=== PATIENT | male | born 1965 | race Caucasian/White ===

== ENCOUNTER 2016-10-27 09:26 | Emergency (ER) | payer MEDICARE, OTHER ==
[2016-10-27 09:43] VITALS: TEMP 97.4
[2016-10-27] MEDS ORDERED: ORPHENADRINE 30 MG/ML 2 ML VIAL IVP STA (09:51)
--- NOTE | 2016-10-27 10:30 | ED ---
Back Pain HPI - General Chief Complaint: Back Pain/Injury Stated Complaint: Back Pain Time Seen by Provider: 10/27/16 09:29 Source: patient, EMS, RN notes reviewed Mode of arrival: EMS Limitations: no limitations - History of Present Illness Initial Comments: 51-year-old male presents emergency Department chief complaint back spasms. Patient states it has been bothering for 1 week. He has a history of back problems. He has not taken any Tylenol Motrin for this. Patient states that he did take Ativan but states that helping patient denies abdominal pain, nausea , vomiting diarrhea constipation. Patient states she does have some dysuria but this is ongoing. Patient denies fever, chills. Patient states that he occasionally has pain that radiates into his hips. Patient states he has no lower extremity paresthesias. - Related Data Home Medications Medication Instructions Recorded Confirmed Aspirin EC [Ecotrin Low Dose] 81 mg PO DAILY@0800 09/19/16 10/27/16 Rless-Rhvz-Ad 1 tab PO DAILY@0800 09/19/16 10/27/16 Diltiazem Cd [Cardizem CD] 240 mg PO DAILY@0800 09/19/16 10/27/16 Diltiazem Cd [Cardizem Cd] 120 mg PO DAILY@0800 09/19/16 10/27/16 Divalproex ER [Depakote ER] 1,000 mg PO HS@2100 09/19/16 10/27/16 Docusate [Colace] 100 mg PO BID@0800,2100 09/19/16 10/27/16 Gemfibrozil [Lopid] 600 mg PO AC-BID 09/19/16 10/27/16 Insulin NPH/Reg Insulin 70/30 25 unit SQ DAILY@1700 09/19/16 10/27/16 [humuLIN 70/30 VIAL] Insulin NPH/Reg Insulin 70/30 30 unit SQ BID@0800,1200 09/19/16 10/27/16 [humuLIN 70/30 VIAL] Insulin Regular, Human [NovoLIN R] See Protocol SQ AC-TID 09/19/16 10/27/16 LORazepam [Ativan] 1 mg PO DAILY PRN 09/19/16 10/27/16 LORazepam [Ativan] 1 mg PO HS@2100 09/19/16 10/27/16 Lisinopril [Zestril] 20 mg PO DAILY@0800 09/19/16 10/27/16 [place]-3 Acid Ethyl Esters [Lovaza] 1 gm PO DAILY@0800 09/19/16 10/27/16 Pravastatin Sodium [Pravachol] 20 mg PO HS@2100 09/19/16 10/27/16 QUEtiapine [SEROquel] 200 mg PO HS@2100 09/19/16 10/27/16 Salmeterol Xinafoate [Serevent 1 puff INHALATION RT-BID@0800,1700 09/19/1610/27 Diskus] Trihexyphenidyl [Artane] 3 mg PO TID@0800,1200,2100 09/19/16 10/27/16 Gabapentin 600 mg PO QID PRN 10/27/16 10/27/16 Gluc/Mustapha-MSM#1/C/Kavon/Mu/Bor 3 tab PO DAILY PRN 10/27/16 10/27/16 [Glucosamine-Chondroitin Tablet] Loratadine [Claritin] 10 mg PO DAILY PRN 10/27/16 10/27/16 Meclizine [Antivert] 12.5 - 25 mg PO QID PRN 10/27/16 10/27/16 Prochlorperazine [Compazine] 10 mg PO Q6H PRN 10/27/16 10/27/16 Propylene Glycol/Peg 400/Pf 1 - 2 drop BOTH EYES DAILY PRN 10/27/16 10/27/16 [Systane 0.3-0.4% Eye Drops] Previous Rx's Medication Instructions Recorded Orphenadrine [Norflex] 100 mg PO Q12H #14 tablet.er 10/27/16 Allergies Allergy/AdvReac Type Severity Reaction Status Date / Time chlorpromazine Allergy Unknown Verified 10/27/16 10:03 [From Thorazine] fluphenazine [From Prolixin] Allergy Unknown Verified 10/27/16 10:03 haloperidol [From Haldol] Allergy Unknown Verified 10/27/16 10:03 insulin glargine Allergy Unknown Verified 10/27/16 10:03 [From Lantus] Review of Systems ROS Statement: Those systems with pertinent positive or pertinent negative responses have been documented in the HPI. ROS Other: All systems not noted in ROS Statement are negative. Past Medical History Past Medical History: Asthma, COPD, Hypertension History of Any Multi-Drug Resistant Organisms: None Reported Past Surgical History: Cholecystectomy Additional Past Surgical History / Comment(s): LEFT EYE Past Psychological History: Anxiety, Bipolar, Depression, Schizoaffective Disorder Smoking Status: Current every day smoker Past Alcohol Use History: None Reported Past Drug Use History: None Reported Additional Drug Use History / Comment(s): pt is a very poor historian - Past Family History Father Family Medical History: Unable to Obtain General Exam General appearance: alert, in no apparent distress Neck exam: Present: normal inspection. Absent: tenderness, meningismus, lymphadenopathy Respiratory exam: Present: normal lung sounds bilaterally. Absent: respiratory distress, wheezes, rales, rhonchi, stridor Cardiovascular Exam: Present: regular rate, normal rhythm, normal heart sounds. Absent: systolic murmur, diastolic murmur, rubs, gallop, clicks GI/Abdominal exam: Present: soft, normal bowel sounds. Absent: distended, tenderness, guarding, rebound, rigid Extremities exam: Present: normal inspection, full ROM, normal capillary refill. Absent: tenderness, pedal edema, joint swelling, calf tenderness Back exam: Present: full ROM. Absent: tenderness, CVA tenderness (R), CVA tenderness (L), muscle spasm, paraspinal tenderness, vertebral tenderness Neurological exam: Present: alert, oriented X3, CN II-XII intact, reflexes normal. Absent: motor sensory deficit Course Vital Signs 10/27/16 10/27/16 09:31 11:37 Temperature 97.4 F L Pulse Rate 79 70 Respiratory 16 20 Rate Blood Pressure 133/56 132/78 O2 Sat by Pulse 96 98 Oximetry Medical Decision Making - Medical Decision Making 51-year-old male present emergency department for back spasms. Patient unable to provide a urine it's time is requesting be discharged. Patient states she does feel better with complex. Patient will be discharged. Disposition Clinical Impression: Lumbar paraspinal muscle spasm, Back pain Disposition: HOME SELF-CARE Condition: Stable Instructions: Acute Low Back Pain (ED) Additional Instructions: Please return to the Emergency Department if symptoms worsen or any other concerns. Prescriptions: Orphenadrine [Norflex] 100 mg PO Q12H #14 tablet.er Time of Disposition: 11:53
[2016-10-27 11:38] VITALS: BP 132/78; PULSE 70; RESP 20
--- NOTE | 2016-10-27 11:45 | XR ---
Lumbosacral spine HISTORY: Back pain 5 views of the lumbosacral spine There is no spondylolysis or spondylolisthesis. Lumbar vertebral bodies show preserved height. Bone m ineralization is reduced. Loss of disc height present at L1-2, L2-3. Sclerosis present in the posteri or elements. IMPRESSION: Degenerative disc disease and osteopenia. Facet arthropathy.
== END 2016-10-27 11:59 | disposition home or self-care (01) ==
LOC: EC 09:26
DX: M62.830 Muscle spasm of back (principal); M54.9 Dorsalgia, unspecified; R30.0 Dysuria; J45.909 Unspecified asthma, uncomplicated; J44.9 Chronic obstructive pulmonary disease, unspecified; I10 Essential (primary) hypertension; F41.9 Anxiety disorder, unspecified; F31.9 Bipolar disorder, unspecified; F25.9 Schizoaffective disorder, unspecified; Z79.82 Long term (current) use of aspirin; Z79.899 Other long term (current) drug therapy; Z79.4 Long term (current) use of insulin; Z88.8 Allergy status to other drugs, medicaments and biological substances; F17.200 Nicotine dependence, unspecified, uncomplicated
CPT/HCPCS: 72110; 96374; 99284; J2360

== ENCOUNTER → 2016-11-04 | Outpatient (CLI) | payer MEDICARE, OTHER ==
--- NOTE | 2016-11-04 11:08 | XR ---
EXAMINATION TYPE: XR chest 2V DATE OF EXAM: 11/04/2016 10:53 AM COMPARISON: 09/20/2016 HISTORY: Pneumonia FINDINGS: The lungs are clear and there is no pneumothorax, pleural effusion, or focal pneumonia. Degenerativ e change of the spine noted. Minimal subsegmental changes at the right lung base laterally. IMPRESSION: 1. No acute process. Minimal linear changes at the right lung base most typical of atelectasis.
== END | disposition home or self-care (01) ==
LOC: RADXRMAIN 10:40
PROVIDERS: ATTEND Internal Medicine Sleep Medicine
DX: J18.9 Pneumonia, unspecified organism (principal)
CPT/HCPCS: 71020

== ENCOUNTER → 2017-02-06 | Outpatient (CLI) | payer MEDICARE, OTHER ==
[2017-02-06 09:44] LABS: Basophils % (A) 0 %; CH 35.5; CHCM 35.9; Eosinophils # (A) 0.2 k/uL (0-0.7); Eosinophils % (A) 1 %; HCT 48.3 % (39.0-53.0); HDW 2.58; HGB 17.2 gm/dL (13.0-17.5); Luc % (Auto) 2; Lymphocytes # (A) 3.3 k/uL (1.0-4.8); Lymphocytes % (A) 30 %; MCH 35.4 pg (25.0-35.0); MCHC 35.6 g/dL (31.0-37.0); MCV 99.2 fL (80.0-100.0); Monocytes # (A) 0.9 k/uL (0-1.0); Monocytes % (A) 8 %; Neutrophils # (A) 6.3 k/uL (1.3-7.7); Neutrophils % (A) 58 %; RBC 4.86 m/uL (4.30-5.90); RDW 12.4 % (11.5-15.5); WBC 10.8 k/uL (3.8-10.6); WBC (Perox) 10.37
[2017-02-06 09:45] LABS: Bilirubin, Delta 0.2 mg/dL (0.0-0.2); Total Bilirubin 0.4 mg/dL (0.2-1.3)
== END | disposition home or self-care (01) ==
LOC: LABWHC1 08:24
PROVIDERS: ATTEND Nurse Practitioner Family
DX: Z51.81 Encounter for therapeutic drug level monitoring (principal); Z79.899 Other long term (current) drug therapy
CPT/HCPCS: 36415; 80076; 80164; 85025

== ENCOUNTER → 2017-11-01 | Outpatient (CLI) | payer MEDICARE, OTHER ==
--- NOTE | 2017-11-01 14:35 | CT ---
EXAMINATION TYPE: CT lumbar spine wo con DATE OF EXAM: 11/01/2017 1:58 PM COMPARISON: CT abdomen and pelvis September 19, 2016 HISTORY: Lumbar pain per order. Back pain since 2005 with pain into bilateral buttocks and left thigh per patient. CT DLP: 979 mGycm Automated exposure control for dose reduction was used. Unenhanced CT of the lumbar spine was performed. Bone and soft tissue window settings are submitted as well as coronal and sagittal reconstructions. 5 lumbar-type vertebra are redemonstrated. Vertebral body heights and disc space heights are preserve d. Posterior disc herniation L5-S1 level is seen sagittal image 34. There is mild to moderate multile beverley anterior and lateral spurring most prominent in the upper lumbar spine. There is hemangioma L2 ve rtebral body level redemonstrated. Review of axial images shows a T12-L1, L1-L2, L2-L3, and L3-L4 levels to appear within normal limits. Axial images at L4-L5 level show mild facet degenerative changes bilaterally and mild broad disc bulg e with left foraminal disc protrusion component minimally effacing anterior thecal sac on axial image 52. There is mild left-sided anterior inferior neural foraminal narrowing. Right-sided neural forame n is patent. Axial images at L5-S1 level show mild facet degenerative changes bilaterally. There is central disc p rotrusion seen but spinal canal is preserved. Bilateral neural foramina are patent. No suspicious retroperitoneal findings are seen. Cholecystectomy clips are partially imaged. IMPRESSION: Some multilevel degenerative changes in the lumbar spine as detailed above.
== END | disposition home or self-care (01) ==
LOC: RADCTMAIN 13:36
PROVIDERS: ATTEND Family Medicine
DX: M47.817 Spondylosis without myelopathy or radiculopathy, lumbosacral region (principal)
CPT/HCPCS: 72131

== ENCOUNTER → 2017-11-15 | Outpatient (CLI) | payer MEDICARE, OTHER ==
[2017-11-15 09:46] LABS: Basophils % (A) 0 %; Eosinophils # (A) 0.1 k/uL (0-0.7); Eosinophils % (A) 2 %; HCT 52.8 % (39.0-53.0); HGB 17.8 gm/dL (13.0-17.5); Lymphocytes # (A) 2.9 k/uL (1.0-4.8); Lymphocytes % (A) 41 %; MCH 33.9 pg (25.0-35.0); MCHC 33.7 g/dL (31.0-37.0); MCV 100.5 fL (80.0-100.0); Mean Platelet Volume 7.5; Monocytes # (A) 0.8 k/uL (0-1.0); Monocytes % (A) 11 %; Neutrophils # (A) 3.1 k/uL (1.3-7.7); Neutrophils % (A) 44 %; Platelet Count 141 k/uL (150-450); RBC 5.26 m/uL (4.30-5.90); RDW 12.4 % (11.5-15.5); WBC 7.1 k/uL (3.8-10.6)
[2017-11-15 10:31] LABS: Bilirubin, Delta 0.3 mg/dL (0.0-0.2); Bilirubin,Unconjugated 0.1 mg/dL (0.0-1.1); Total Bilirubin 0.4 mg/dL (0.2-1.3); Total Protein 6.6 g/dL (6.3-8.2)
[2017-11-15 10:37] LABS: Valproic Acid (Depakene) 68.8 ug/mL
== END | disposition home or self-care (01) ==
LOC: LABWHC1 08:20
PROVIDERS: ATTEND Nurse Practitioner Family
DX: Z51.81 Encounter for therapeutic drug level monitoring (principal); Z79.899 Other long term (current) drug therapy
CPT/HCPCS: 36415; 80076; 80164; 85025

== ENCOUNTER → 2017-11-27 | Outpatient (CLI) | payer MEDICARE, OTHER ==
[2017-11-27 10:36] LABS: Blood Urea Nitrogen 17 mg/dL (9-20)
--- NOTE | 2017-11-27 11:30 | CT ---
EXAMINATION TYPE: CT thoracic spine w con DATE OF EXAM: 11/27/2017 COMPARISON: NONE HISTORY: mid back pain CT DLP: 1631 mGycm Automated exposure control for dose reduction was used. TECHNIQUE: Axial images were obtained through thoracic spine at 3 mm thick sections. Reconstructed im ages are performed in the coronal and sagittal planes. FINDINGS: There is slight exaggeration of thoracic kyphosis the upper thoracic spine. Some increased density is in the thoracic spine disc space. Spondylosis is present. No suspicious focal disc herniation or sig nificant disc bulge is evident. No spinal canal stenosis or neural foraminal stenosis is present. L2-L3: Facet compared to the mgpal-xm-gnhy. There appears to be some broad-based disc bulging with mi ld anterior thecal sac flattening. Spinal canal stenosis or neural foraminal stenosis identified. IMPRESSION: 1. NO ACUTE OSSEOUS ABNORMALITY THORACIC SPINE. 2. SUGGESTION OF MILD BROAD-BASED DISC BULGE L2-L3.
== END | disposition home or self-care (01) ==
LOC: RADCTMAIN 09:54
PROVIDERS: ATTEND Family Medicine
DX: M54.6 Pain in thoracic spine (principal)
CPT/HCPCS: 82565; 84520; 72129; 36415; Q9967

== ENCOUNTER → 2017-12-13 | Outpatient (CLI) | payer MEDICARE, OTHER | END | disposition home or self-care (01) | LOC: LABWHC1 08:15 | PROVIDERS: ATTEND Nurse Practitioner Family | DX: Z51.81 Encounter for therapeutic drug level monitoring (principal); Z79.899 Other long term (current) drug therapy | CPT/HCPCS: 36415; 80164 ==

== ENCOUNTER 2018-04-20 11:49 | Emergency (ER) | payer MEDICARE, OTHER ==
[2018-04-20 11:54] VITALS: RESP 18
[2018-04-20] MEDS ORDERED: IPRATROPIUM-ALBUTEROL 3 ML NEB INHALATION STA (12:24)
--- NOTE | 2018-04-20 12:31 | ED ---
General Adult HPI - General Chief complaint: Upper Respiratory Infection Stated complaint: Difficulty Breathing Time Seen by Provider: 04/20/18 11:55 Source: patient, RN notes reviewed Mode of arrival: ambulatory Limitations: no limitations - History of Present Illness Initial comments: This is a 53-year-old male who presents emergency Department complaining of shortness of breath and cough for about 30 hours. Patient states had intermittent cough over the last 6 weeks but he figured it is because he smokes daily. Patient states he does have a breathing treatment home. He almost never uses it. Patient denies any fever chills. Patient denies any chest pain. Patient states he has coughed up quite a bit of sputum since yesterday. Patient denies any palpitations. Patient denies any headache patient denies numbness weakness. Patient denies abdominal pain patient denies nausea vomiting diarrhea. - Related Data Home Medications Medication Instructions Recorded Confirmed Divalproex ER [Depakote ER] 2,000 mg PO HS 09/19/16 04/20/18 Docusate [Colace] 100 mg PO BID 09/19/16 04/20/18 Insulin Regular, Human [NovoLIN R] See Protocol SQ AC-TID 09/19/16 04/20/18 Insulin NPH Hum/Reg Insulin Hm 30 units SQ AC-TID 09/17/17 04/20/18 [NovoLIN 70-30 100 UNIT/ML VIAL] Metoprolol Tartrate [Lopressor] 50 mg PO BID 09/17/17 04/20/18 ARIPiprazole [Abilify] 7.5 mg PO DAILY 04/20/18 04/20/18 Acetaminophen [Tylenol Arthritis] 650 - 1,300 mg PO TID PRN 04/20/18 04/20/18 Amantadine HCl [Symmetrel] 100 mg PO TID 04/20/18 04/20/18 Aspirin 81 mg PO DAILY 04/20/18 04/20/18 Budesonide [Pulmicort] 0.5 mg INHALATION RT-BID PRN 04/20/18 04/20/18 Diltiazem Cd [Cardizem CD] 120 mg PO DAILY 04/20/18 04/20/18 Diltiazem Cd [Cardizem CD] 240 mg PO DAILY 04/20/18 04/20/18 Ezetimibe [Zetia] 10 mg PO HS 04/20/18 04/20/18 Fluticasone/Salmeterol [Advair 1 puff INHALATION RT-BID 04/20/18 04/20/18 250-50 Diskus] Glucosam/Mustapha-Msm1/C/Kavon/Bosw 3 tab PO DAILY PRN 04/20/18 04/20/18 [Glucosamine-Chondroitin Tablet] Imipramine HCl [Tofranil] 50 mg PO DAILY 04/20/18 04/20/18 Insulin Regular, Human [NovoLIN R] 10 unit SQ AC-TID 04/20/18 04/20/18 Ipratropium [place] 0.06%Nasal 2 spray EA NOSTRIL TID PRN 04/20/18 04/20/18 [Atrovent Nasal 0.06%] Ipratropium-Albuterol Nebulize 3 ml INHALATION RT-TID PRN 04/20/18 04/20/18 [Duoneb 0.5 mg-3 mg/3 ml Soln] LORazepam [Ativan] 0.5 mg PO DAILY PRN 04/20/18 04/20/18 LORazepam [Ativan] 1 mg PO HS 04/20/18 04/20/18 Lisinopril [Zestril] 20 mg PO DAILY 04/20/18 04/20/18 Loratadine [Claritin] 10 mg PO DAILY PRN 04/20/18 04/20/18 Meclizine [Antivert] 12.5 - 25 mg PO QID PRN 04/20/18 04/20/18 Nystatin [Nystop] 1 applic TOPICAL QID PRN 04/20/18 04/20/18 [place]-3 Fatty Acids [[place]-3] 1,000 mg PO DAILY 04/20/18 04/20/18 Pravastatin Sodium [Pravachol] 20 mg PO HS 04/20/18 04/20/18 Pregabalin [Lyrica] 75 mg PO DAILY 04/20/18 04/20/18 Prochlorperazine [Compazine] 10 mg PO Q6H PRN 04/20/18 04/20/18 QUEtiapine FUMARATE [Seroquel Xr] 800 mg PO HS 04/20/18 04/20/18 Total B With C [place] 1 tab PO DAILY 04/20/18 04/20/18 V-R Antacid [place](Almacone) 15 ml PO QID PRN 04/20/18 04/20/18 guaiFENesin-DM 100-10MG/5ML 10 ml PO TID PRN 04/20/18 04/20/18 [Robitussin DM] Previous Rx's Medication Instructions Recorded Albuterol Inhaler [Ventolin Hfa 1 - 2 puff INHALATION Q6HR PRN #2 04/20/18 Inhaler] puff Azithromycin [Zithromax Tri-Robbie] 500 mg PO DAILY #3 tab 04/20/18 Allergies Allergy/AdvReac Type Severity Reaction Status Date / Time chlorpromazine Allergy Unknown Verified 04/20/18 12:27 [From Thorazine] fluphenazine [From Prolixin] Allergy Unknown Verified 04/20/18 12:27 haloperidol [From Haldol] Allergy Unknown Verified 04/20/18 12:27 insulin glargine Allergy Unknown Verified 04/20/18 12:27 [From Lantus] ziprasidone [From Geodon] Allergy Unknown Verified 04/20/18 12:27 Review of Systems ROS Statement: Those systems with pertinent positive or pertinent negative responses have been documented in the HPI. ROS Other: All systems not noted in ROS Statement are negative. Past Medical History Past Medical History: Asthma, COPD, CVA/TIA, Diabetes Mellitus, Hypertension History of Any Multi-Drug Resistant Organisms: None Reported Past Surgical History: Cholecystectomy Additional Past Surgical History / Comment(s): LEFT EYE Past Anesthesia/Blood Transfusion Reactions: No Reported Reaction Past Psychological History: Anxiety, Bipolar, Depression, Schizoaffective Disorder Smoking Status: Current every day smoker Past Alcohol Use History: None Reported Past Drug Use History: None Reported - Past Family History Father Family Medical History: Unable to Obtain General Exam - General Exam Comments Initial Comments: GENERAL: Patient is well-developed and well-nourished. Patient is nontoxic and well- hydrated and is in mild distress. ENT: Neck is soft and supple. No significant lymphadenopathy is noted. Oropharynx is clear. Moist mucous membranes. Neck has full range of motion without eliciting any pain. EYES: The sclera were anicteric and conjunctiva were pink and moist. Extraocular movements were intact and pupils were equal round and reactive to light. Eyelids were unremarkable. PULMONARY: Patient has some expiratory wheezing bilaterally CARDIOVASCULAR: There is a regular rate and rhythm without any murmurs gallops or rubs. ABDOMEN: Soft and nontender with normal bowel sounds. No palpable organomegaly was noted. There is no palpable pulsatile mass. SKIN: Skin is clear with no lesions or rashes and otherwise unremarkable. NEUROLOGIC: Patient is alert and oriented x3. Cranial nerves II through XII are grossly intact. Motor and sensory are also intact. Normal speech, volume and content. Symmetrical smile. MUSCULOSKELETAL: Normal extremities with adequate strength and full range of motion. No lower extremity swelling or edema. No calf tenderness. LYMPHATICS: No significant lymphadenopathy is noted PSYCHIATRIC: Normal psychiatric evaluation. Limitations: no limitations Course Vital Signs 04/20/18 04/20/18 04/20/18 11:52 12:38 12:48 Temperature 98.0 F Pulse Rate 92 96 96 Respiratory 18 Rate Blood Pressure 121/77 O2 Sat by Pulse 98 Oximetry Medical Decision Making - Medical Decision Making EKG shows a normal sinus rhythm at 75 bpm WI interval 154 QRS is 82 QT interval 350 QTC is 390. Patient's EKG shows no ST segment elevation or depression or T wave abnormalities are noted. The patient's lungs after he received a breathing treatment his lung sounds were much clearer. Patient stated he felt much better. Patient states she will start using his breathing treatments at home. Disposition Clinical Impression: Bronchitis with bronchospasm Disposition: HOME SELF-CARE Condition: Good Instructions: Acute Bronchitis (ED) Prescriptions: Albuterol Inhaler [Ventolin Hfa Inhaler] 1 - 2 puff INHALATION Q6HR PRN #2 puff PRN Reason: Difficulty breathing Azithromycin [Zithromax Tri-Robbie] 500 mg PO DAILY #3 tab Is patient prescribed a controlled substance at d/c from ED?: No Referrals: Celio Friedman MD [Primary Care Provider] - 1-2 days Time of Disposition: 13:37
--- NOTE | 2018-04-20 13:17 | XR ---
EXAMINATION TYPE: XR chest 2V DATE OF EXAM: 04/20/2018 COMPARISON: 08/01/2017 HISTORY: Shortness of breath, chills, and cough for 6 weeks. Worsening symptoms within the last 2 day s. History of COPD TECHNIQUE: Frontal and lateral views of the chest are obtained. FINDINGS: There is no focal air space opacity, pleural effusion, or pneumothorax seen. The cardiac silhouette size is within normal limits. The osseous structures are intact. Moderate multilevel deg enerative changes of thoracic spine are seen. Cholecystectomy clips are noted within the right upper quadrant. Right hemidiaphragm slight elevation is unchanged from the prior. IMPRESSION: No acute cardiopulmonary process.
[2018-04-20 14:00] VITALS: BP 120/62; PULSE 90; TEMP 98.1
== END 2018-04-20 13:59 | disposition home or self-care (01) ==
LOC: EC 11:49
DX: J98.01 Acute bronchospasm (principal); J44.9 Chronic obstructive pulmonary disease, unspecified; E11.9 Type 2 diabetes mellitus without complications; I10 Essential (primary) hypertension; Z86.73 Personal history of transient ischemic attack (TIA), and cerebral infarction without residual deficits; F31.9 Bipolar disorder, unspecified; F41.9 Anxiety disorder, unspecified; F25.9 Schizoaffective disorder, unspecified; F17.200 Nicotine dependence, unspecified, uncomplicated; Z79.4 Long term (current) use of insulin; Z79.82 Long term (current) use of aspirin; Z79.51 Long term (current) use of inhaled steroids; Z79.899 Other long term (current) drug therapy; Z88.8 Allergy status to other drugs, medicaments and biological substances
CPT/HCPCS: 71046; 93005; 94640; 99284

== ENCOUNTER 2018-08-02 23:51 | Emergency (ER) | payer MEDICARE, OTHER ==
[2018-08-03 00:09] VITALS: BP 136/75; PULSE 80; RESP 18; TEMP 98.4
--- NOTE | 2018-08-03 01:09 | ED ---
ENT HPI - General Source: patient Mode of arrival: EMS Limitations: no limitations <Lubna Falk - Last Filed: 08/03/18 02:10> <Whitney Rios - Last Filed: 08/03/18 04:47> - General Chief complaint: ENT Stated complaint: dental pain Time Seen by Provider: 08/03/18 00:38 - History of Present Illness Initial comments: 53-year-old male patient presents to the emergency department today for complaints of left upper dental pain. Patient states that the tooth started bothering him this morning. States that whenever he bites down anything and causes extreme pain. Patient states this evening the pain has been worsening and radiating up into his face into his head. States he did take Tylenol earlier today but it didn't seem to help. He denies any fevers or chills. He denies any difficulty swallowing or trismus. States he is also had a sore throat for quite some time he is unsure what might be causing this. States that occasionally feels like something is in his throat when he tries to swallow. He denies any nausea or vomiting. Denies any drainage from the area around the tooth. Patient denies any recent rash, shortness breath, chest pain, abdominal pain, diarrhea, constipation, back pain, numbness, tingling, dizziness , weakness, hematuria, dysuria, urinary urgency, urinary frequency, headache, visual changes, or any other complaints. (Lubna Falk) - Related Data Home Medications Medication Instructions Recorded Confirmed Divalproex ER [Depakote ER] 2,000 mg PO HS 09/19/16 04/20/18 Docusate [Colace] 100 mg PO BID 09/19/16 04/20/18 Insulin Regular, Human [NovoLIN R] See Protocol SQ AC-TID 09/19/16 04/20/18 Insulin NPH Hum/Reg Insulin Hm 30 units SQ AC-TID 09/17/17 04/20/18 [NovoLIN 70-30 100 UNIT/ML VIAL] Metoprolol Tartrate [Lopressor] 50 mg PO BID 09/17/17 04/20/18 ARIPiprazole [Abilify] 7.5 mg PO DAILY 04/20/18 04/20/18 Acetaminophen [Tylenol Arthritis] 650 - 1,300 mg PO TID PRN 04/20/18 04/20/18 Amantadine HCl [Symmetrel] 100 mg PO TID 04/20/18 04/20/18 Aspirin 81 mg PO DAILY 04/20/18 04/20/18 Budesonide [Pulmicort] 0.5 mg INHALATION RT-BID PRN 04/20/18 04/20/18 Diltiazem Cd [Cardizem CD] 120 mg PO DAILY 04/20/18 04/20/18 Diltiazem Cd [Cardizem CD] 240 mg PO DAILY 04/20/18 04/20/18 Ezetimibe [Zetia] 10 mg PO HS 04/20/18 04/20/18 Fluticasone/Salmeterol [Advair 1 puff INHALATION RT-BID 04/20/18 04/20/18 250-50 Diskus] Glucosam/Mustapha-Msm1/C/Kavon/Bosw 3 tab PO DAILY PRN 04/20/18 04/20/18 [Glucosamine-Chondroitin Tablet] Imipramine HCl [Tofranil] 50 mg PO DAILY 04/20/18 04/20/18 Insulin Regular, Human [NovoLIN R] 10 unit SQ AC-TID 04/20/18 04/20/18 Ipratropium [place] 0.06%Nasal 2 spray EA NOSTRIL TID PRN 04/20/18 04/20/18 [Atrovent Nasal 0.06%] Ipratropium-Albuterol Nebulize 3 ml INHALATION RT-TID PRN 04/20/18 04/20/18 [Duoneb 0.5 mg-3 mg/3 ml Soln] LORazepam [Ativan] 0.5 mg PO DAILY PRN 04/20/18 04/20/18 LORazepam [Ativan] 1 mg PO HS 04/20/18 04/20/18 Lisinopril [Zestril] 20 mg PO DAILY 04/20/18 04/20/18 Loratadine [Claritin] 10 mg PO DAILY PRN 04/20/18 04/20/18 Meclizine [Antivert] 12.5 - 25 mg PO QID PRN 04/20/18 04/20/18 Nystatin [Nystop] 1 applic TOPICAL QID PRN 04/20/18 04/20/18 [place]-3 Fatty Acids [[place]-3] 1,000 mg PO DAILY 04/20/18 04/20/18 Pravastatin Sodium [Pravachol] 20 mg PO HS 04/20/18 04/20/18 Pregabalin [Lyrica] 75 mg PO DAILY 04/20/18 04/20/18 Prochlorperazine [Compazine] 10 mg PO Q6H PRN 04/20/18 04/20/18 QUEtiapine FUMARATE [Seroquel Xr] 800 mg PO HS 04/20/18 04/20/18 Total B With C Caplet 1 tab PO DAILY 04/20/18 04/20/18 V-R Antacid [place](Almacone) 15 ml PO QID PRN 04/20/18 04/20/18 guaiFENesin-DM 100-10MG/5ML 10 ml PO TID PRN 04/20/18 04/20/18 [Robitussin DM] Previous Rx's Medication Instructions Recorded Albuterol Inhaler [Ventolin Hfa 1 - 2 puff INHALATION Q6HR PRN #2 04/20/18 Inhaler] puff Azithromycin [Zithromax Tri-Robbie] 500 mg PO DAILY #3 tab 04/20/18 Ibuprofen [Motrin] 600 mg PO Q8HR PRN #30 tab 08/03/18 Penicillin V Potassium [Pen Vee K] 500 mg PO Q6H #40 tablet 08/03/18 Ranitidine HCl [Zantac] 150 mg PO HS #30 tab 08/03/18 Allergies Allergy/AdvReac Type Severity Reaction Status Date / Time chlorpromazine Allergy Unknown Verified 08/03/18 00:09 [From Thorazine] fluphenazine [From Prolixin] Allergy Unknown Verified 08/03/18 00:09 haloperidol [From Haldol] Allergy Unknown Verified 08/03/18 00:09 insulin glargine Allergy Unknown Verified 08/03/18 00:09 [From Lantus] ziprasidone [From Geodon] Allergy Unknown Verified 08/03/18 00:09 Review of Systems ROS Other: All systems not noted in ROS Statement are negative. <Lubna Falk - Last Filed: 08/03/18 02:10> ROS Other: All systems not noted in ROS Statement are negative. <Whitney Rios - Last Filed: 08/03/18 04:47> ROS Statement: Those systems with pertinent positive or pertinent negative responses have been documented in the HPI. Past Medical History Past Medical History: Asthma, COPD, CVA/TIA, Diabetes Mellitus, Hypertension History of Any Multi-Drug Resistant Organisms: None Reported Past Surgical History: Cholecystectomy Additional Past Surgical History / Comment(s): LEFT EYE Past Anesthesia/Blood Transfusion Reactions: No Reported Reaction Past Psychological History: Anxiety, Bipolar, Depression, Schizoaffective Disorder Smoking Status: Current every day smoker Past Alcohol Use History: None Reported Past Drug Use History: None Reported - Past Family History Father Family Medical History: Unable to Obtain <Lubna Falk M - Last Filed: 08/03/18 02:10> General Exam Limitations: no limitations General appearance: alert, in no apparent distress, other (This is a well- developed, well-nourished adult male patient in no acute distress. Vital signs upon presentation are temperature 98.4F, pulse 80, respirations 18, blood pressure 136/75, pulse ox 97% on room air.) Eye exam: Present: normal appearance, PERRL, EOMI. Absent: scleral icterus, conjunctival injection, periorbital swelling ENT exam: Present: normal oropharynx, mucous membranes moist, other (Patient has poor dentition with dental caries. Patient has gingival erythema and hyperplasia surrounding tooth number 13. No evidence of drainable abscess. Opens and closes mouth without difficulty.). Absent: normal exam Neck exam: Present: normal inspection. Absent: tenderness, meningismus, lymphadenopathy Respiratory exam: Present: normal lung sounds bilaterally. Absent: respiratory distress, wheezes, rales, rhonchi, stridor Cardiovascular Exam: Present: regular rate, normal rhythm, normal heart sounds. Absent: systolic murmur, diastolic murmur, rubs, gallop, clicks GI/Abdominal exam: Present: soft, normal bowel sounds. Absent: distended, tenderness, guarding, rebound, rigid Neurological exam: Present: alert, oriented X3, CN II-XII intact Psychiatric exam: Present: normal affect, normal mood Skin exam: Present: warm, dry, intact, normal color. Absent: rash <Lubna Falk M - Last Filed: 08/03/18 02:10> Vital Signs 08/03/18 00:07 Temperature 98.4 F Pulse Rate 80 Respiratory 18 Rate Blood Pressure 136/75 O2 Sat by Pulse 97 Oximetry Medical Decision Making <Lubna Falk - Last Filed: 08/03/18 02:10> <Whitney Rios - Last Filed: 08/03/18 04:47> - Medical Decision Making 53-year-old male patient presents to emergency department today for complaints of left upper dental pain. Physical examination did reveal dental caries to tooth #13. There is surrounding gingival erythema and hyperplasia. No evidence of drainable abscess. Patient also complaining of sore throat, oropharynx appears normal no tonsillar exudate or hypertrophy or erythema. Patient does report that he does have acid reflux. We did discuss that his sore throat could be related to a suicide on Zantac. If this does not improve his symptoms he is instructed to follow-up with ears, nose, and throat specialist for further evaluation. As for the tooth he is instructed to follow- up with dentistry. We'll start on Pen-Vee K and given pain medication. Return parameters were discussed in detail. He verbalizes understanding and agrees with this plan. (Lubna Falk) I was available for consultation in the emergency department. The history and physical exam were done by the midlevel provider. I was consulted for this patient's care. I reviewed the case with the midlevel provider and based on their presentation of the patient, I agree with the assessment, medical decision making and plan of care as documented. (Whitney Rios) Disposition Is patient prescribed a controlled substance at d/c from ED?: No Time of Disposition: 01:09 <Lubna Falk - Last Filed: 08/03/18 02:10> <Whitney Rios - Last Filed: 08/03/18 04:47> Clinical Impression: Pain, dental, Sore throat Disposition: HOME SELF-CARE Condition: Good Instructions: Toothache (ED) Additional Instructions: Complete antibiotic prescription in full. Take other medications as directed. Follow up with dentistry as soon as possible. Follow up with ENT specialist if sore throat does not improve. Return immediately for any new, worsening, or concerning symptoms. Prescriptions: Ibuprofen [Motrin] 600 mg PO Q8HR PRN #30 tab PRN Reason: Pain Penicillin V Potassium [Pen Vee K] 500 mg PO Q6H #40 tablet Ranitidine HCl [Zantac] 150 mg PO HS #30 tab Referrals: Celio Friedman MD [Primary Care Provider] - 1-2 days
[2018-08-03] MEDS: ACET/COD 300 MG/30 MG STARTER PACK 6 TAB BTL PO STA (01:16)
[2018-08-03] MEDS: PENICILLIN VK 500MG STARTER 4 TAB BTL PO STA (01:17)
[2018-08-03] MEDS: KETOROLAC 30 MG/ML 1 ML VIAL IM STA (01:17)
== END 2018-08-03 01:50 | disposition home or self-care (01) ==
LOC: EC 23:51
DX: J02.9 Acute pharyngitis, unspecified (principal); K08.89 Other specified disorders of teeth and supporting structures; J44.9 Chronic obstructive pulmonary disease, unspecified; E11.9 Type 2 diabetes mellitus without complications; I10 Essential (primary) hypertension; F31.9 Bipolar disorder, unspecified; F41.9 Anxiety disorder, unspecified; F25.9 Schizoaffective disorder, unspecified; F17.200 Nicotine dependence, unspecified, uncomplicated; Z86.73 Personal history of transient ischemic attack (TIA), and cerebral infarction without residual deficits; Z79.4 Long term (current) use of insulin; Z79.51 Long term (current) use of inhaled steroids; Z79.82 Long term (current) use of aspirin; Z79.899 Other long term (current) drug therapy; Z88.8 Allergy status to other drugs, medicaments and biological substances
CPT/HCPCS: 96372; 99283

== ENCOUNTER → 2018-10-15 | Outpatient (CLI) | payer MEDICARE, OTHER ==
[2018-10-15 17:39] LABS: T4, Free (Free Thyroxine) 1.1 ng/dL (0.80-1.80)
== END | disposition home or self-care (01) ==
LOC: LABWHC1 08:37
PROVIDERS: ATTEND Psychiatry & Neurology Neurology
DX: R25.1 Tremor, unspecified (principal)
CPT/HCPCS: 36415; 84439; 84443

== ENCOUNTER 2019-01-20 22:30 | Emergency (ER) | payer MEDICARE, OTHER ==
[2019-01-20 22:36] VITALS: RESP 18; TEMP 98.2
[2019-01-20] MEDS ORDERED: SODIUM CHLORIDE 0.9% 1,000 ML IV STA (22:40)
--- NOTE | 2019-01-20 23:13 | XR ---
EXAM: XR Chest, 2 Views CLINICAL HISTORY: Chest pain TECHNIQUE: Frontal and lateral views of the chest. COMPARISON: Chest x-ray dated 04/20/2018 FINDINGS: Lungs: Mild prominence of interstitium which may be secondary to low lung volumes. An inflammatory or infectious process versus pulmonary vascular congestion is not excluded. Pleural space: Unremarkable. No pneumothorax. Heart: Unremarkable. No cardiomegaly. Mediastinum: Unremarkable. Bones/joints: Unremarkable. IMPRESSION: Mild prominence of interstitium which may be secondary to low lung volumes. An inflammatory or infectious process versus pulmonary vascular congestion is not excluded.
[2019-01-20 23:24] LABS: Basophils % (A) 0 %; Eosinophils # (A) 0.1 k/uL (0-0.7); Eosinophils % (A) 1 %; HCT 51.7 % (39.0-53.0); HGB 17.7 gm/dL (13.0-17.5); Lymphocytes # (A) 2.8 k/uL (1.0-4.8); Lymphocytes % (A) 33 %; MCHC 34.3 g/dL (31.0-37.0); Mean Platelet Volume 7.6; Monocytes # (A) 0.8 k/uL (0-1.0); Monocytes % (A) 9 %; Neutrophils # (A) 4.8 k/uL (1.3-7.7); Neutrophils % (A) 55 %; Platelet Count 121 k/uL (150-450); RBC 5.23 m/uL (4.30-5.90); RDW 13.6 % (11.5-15.5); WBC 8.7 k/uL (3.8-10.6)
[2019-01-20 23:28] LABS: Prothrombin Time 10.4 sec (9.0-12.0)
[2019-01-20 23:54] LABS: Albumin 4.4 g/dL (3.5-5.0); Anion Gap 12 mmol/L; Blood Urea Nitrogen 19 mg/dL (9-20); Calcium 9.5 mg/dL (8.4-10.2); Carbon Dioxide 22 mmol/L (22-30); Chloride 102 mmol/L (98-107); Glucose 223 mg/dL (74-99); Lipase 57 U/L (23-300); Sodium 136 mmol/L (137-145); Total Bilirubin 0.5 mg/dL (0.2-1.3); Total Protein 6.8 g/dL (6.3-8.2)
[2019-01-21] LABS: ALT 35 U/L (21-72); AST 31 U/L (17-59); Alkaline Phosphatase 58 U/L (38-126); Magnesium 1.9 mg/dL (1.6-2.3); Potassium 4.5 mmol/L (3.5-5.1)
--- NOTE | 2019-01-21 01:18 | ED ---
General Adult HPI - General Chief complaint: Neuro Symptoms/Deficit Stated complaint: tremors Time Seen by Provider: 01/20/19 22:38 Source: patient, EMS Mode of arrival: EMS Limitations: no limitations - History of Present Illness Initial comments: Lucas is a pleasant 53-year-old gentleman who presents the emergency department today via EMS for evaluation of tremors. Patient reports he has had tremors for approximately 2 years he is followed with his primary care physician as well as his provider at [facility] for this. Patient reports he knows that one of his medications as for tremors but he can't remember which one. He reports that he saw his provider at [facility] last week and asked that one of her medication treats his tremors be increased however he was told that they can increase the dose. Patient reports he continues to feel shaky all the time. Patient reports that tonight he was feeling shaky so he came to the ER. Patient also concerned of the shaking may be worse due to a new medication. Patient reports he recently started doing an injection treatment for his diabetes 2-3 weeks ago and thinks this may be making him feel more shaky. Patient denies any acute complaints. He reports that his symptoms have been persistent for 2 years and have been progressively worsening over the past month. He reports feeling shaking in his whole body and feeling like he shaking from the inside. Patient reports he's otherwise been tending to his normal activities of daily living he's been eating and drinking well. He reports that he has been compliant with his home medications. He lives in a [place] [facility] and has a guardian who assist him in making his decisions. - Related Data Home Medications Medication Instructions Recorded Confirmed Divalproex ER [Depakote ER] 1,500 mg PO HS 09/19/16 01/20/19 Docusate [Colace] 100 mg PO BID 09/19/16 01/20/19 Insulin NPH Hum/Reg Insulin Hm 40 units SQ AC-TID 09/17/17 01/20/19 [NovoLIN 70-30 100 UNIT/ML VIAL] Metoprolol Tartrate [Lopressor] 50 mg PO BID 09/17/17 01/20/19 Amantadine HCl [Symmetrel] 100 mg PO TID 04/20/18 01/20/19 Diltiazem Cd [Cardizem CD] 120 mg PO DAILY 04/20/18 01/20/19 Diltiazem Cd [Cardizem CD] 240 mg PO DAILY 04/20/18 01/20/19 Ezetimibe [Zetia] 10 mg PO HS 04/20/18 01/20/19 Fluticasone/Salmeterol [Advair 1 puff INHALATION RT-BID 04/20/18 01/20/19 250-50 Diskus] Imipramine HCl [Tofranil] 50 mg PO HS 04/20/18 01/20/19 Insulin Regular, Human [NovoLIN R] 10 unit SQ AC-TID 04/20/18 01/20/19 LORazepam [Ativan] 0.5 mg PO DAILY PRN 04/20/18 01/20/19 LORazepam [Ativan] 1 mg PO HS 04/20/18 01/20/19 Lisinopril [Zestril] 20 mg PO DAILY 04/20/18 01/20/19 [place]-3 Fatty Acids [[place]y Rose-3] 1,000 mg PO DAILY 04/20/18 01/20/19 Pravastatin Sodium [Pravachol] 20 mg PO HS 04/20/18 01/20/19 Pregabalin [Lyrica] 75 mg PO DAILY 04/20/18 01/20/19 QUEtiapine FUMARATE [Seroquel Xr] 800 mg PO HS 04/20/18 01/20/19 Total B With C Caplet 1 tab PO DAILY 04/20/18 01/20/19 ARIPiprazole [Abilify] 5 mg PO DAILY 01/20/19 01/20/19 Aspirin EC [Ecotrin Low Dose] 81 mg PO DAILY 01/20/19 01/20/19 Dulaglutide [Trulicity] 0.75 mg SQ TH 01/20/19 01/20/19 Previous Rx's Medication Instructions Recorded Ranitidine HCl [Zantac] 150 mg PO HS #30 tab 08/03/18 Allergies Allergy/AdvReac Type Severity Reaction Status Date / Time amlodipine Allergy Unknown Verified 01/20/19 22:46 atorvastatin [From Lipitor] Allergy Unknown Verified 01/20/19 22:46 benztropine [From Cogentin] Allergy Unknown Verified 01/20/19 22:46 chlorpromazine Allergy Unknown Verified 08/03/18 00:09 [From Thorazine] fluphenazine [From Prolixin] Allergy Unknown Verified 08/03/18 00:09 gabapentin Allergy Unknown Verified 01/20/19 22:46 haloperidol [From Haldol] Allergy Unknown Verified 08/03/18 00:09 insulin glargine Allergy Unknown Verified 08/03/18 00:09 [From Lantus] metformin Allergy Unknown Verified 01/20/19 22:46 olanzapine [From Zyprexa] Allergy Unknown Verified 01/20/19 22:46 thiothixene Allergy Unknown Verified 01/20/19 22:46 ziprasidone [From Geodon] Allergy Unknown Verified 08/03/18 00:09 ABILIFY INJECTION Allergy Unknown Uncoded 01/20/19 22:46 INVEGA INJECTION Allergy Unknown Uncoded 01/20/19 22:46 Review of Systems ROS Statement: Those systems with pertinent positive or pertinent negative responses have been documented in the HPI. ROS Other: All systems not noted in ROS Statement are negative. Past Medical History Past Medical History: Asthma, COPD, CVA/TIA, Diabetes Mellitus, Hypertension Additional Past Medical History / Comment(s): Tremors History of Any Multi-Drug Resistant Organisms: None Reported Past Surgical History: Cholecystectomy Additional Past Surgical History / Comment(s): LEFT EYE Past Anesthesia/Blood Transfusion Reactions: No Reported Reaction Past Psychological History: Anxiety, Bipolar, Depression, Schizoaffective Disorder Smoking Status: Current every day smoker Past Alcohol Use History: None Reported Past Drug Use History: None Reported - Past Family History Father Family Medical History: Unable to Obtain General Exam - General Exam Comments Initial Comments: Physical Exam GENERAL: Patient is well-developed and well-nourished. Patient is nontoxic and well- hydrated and is in no distress. HENT: Normocephalic, Atraumatic. EYES: PERRL, EOMI PULMONARY: Unlabored respirations. No audible rales rhonchi or wheezing was noted. CARDIOVASCULAR: There is a regular rate and rhythm without any murmurs gallops or rubs. ABDOMEN: Soft and nontender with normal bowel sounds. SKIN: Skin is clear with no lesions or rashes and otherwise unremarkable. : Deferred NEUROLOGIC: Patient is alert and oriented x3. Moving all extremities spontaneously Noted had some shaking of the upper extremities however seems to be distractible No seizure activity MUSCULOSKELETAL: Normal extremities with adequate strength and full range of motion. No lower extremity swelling or edema. No calf tenderness. PSYCHIATRIC: Childlike demeanor Limitations: no limitations Limitations: no limitations Course Vital Signs 01/20/19 01/21/19 22:33 01:45 Temperature 98.2 F Pulse Rate 97 82 Respiratory 18 18 Rate Blood Pressure 160/98 172/80 O2 Sat by Pulse 98 98 Oximetry EKG Findings - EKG Comments: EKG Findings:: EKG was obtained at 2238, rate is 100 rhythm is sinus there is normal axis there are normal intervals, W[place] 154, QRS 86, QTC is [address] elevations or depressions there is no signs of acute ischemia, infarction or arrhythmia. Medical Decision Making - Medical Decision Making The patient was seen and evaluated, history was obtained from patient and EMS and review of medical record This is a pleasant 53-year-old gentleman who reports feeling shaky for 2 years believes that he has medication that fixes his shakiness not certain what medication it is wanted the dose changed but is [facility] provider did not change the dose when he saw her earlier this week. Patient has no acute complaints for basic labs will be ordered EKG nonischemic Chest x-ray unremarkable Patient's labs did reveal hyperglycemia and evidence of dehydration he did receive a 1 L IV fluid bolus. I reevaluated the patient he is resting comfortably. His lab results were discussed with him I advised him at this time I don't feel there is any indication to admit him to the hospital patient is agreeable, I advised the patient contact Dr. Friedman [facility] to discuss his medications and his concerns. All questions pertaining care were answered to the best my ability return parameters were discussed the patient was discharged home in stable condition. - Lab Data Result diagrams: 01/20/19 22:57 01/20/19 22:57 Lab Results 01/20/19 01/20/19 01/20/19 Range/Units 22:57 22:57 22:57 WBC 8.7 (3.8-10.6) k/uL RBC 5.23 (4.30-5.90) m/uL Hgb 17.7 H (13.0-17.5) gm/dL Hct 51.7 (39.0-53.0) % MCV 99.0 (80.0-100.0) fL MCH 34.0 (25.0-35.0) pg MCHC 34.3 (31.0-37.0) g/dL RDW 13.6 (11.5-15.5) % Plt Count 121 L (150-450) k/uL Neutrophils % 55 % Lymphocytes % 33 % Monocytes % 9 % Eosinophils % 1 % Basophils % 0 % Neutrophils # 4.8 (1.3-7.7) k/uL Lymphocytes # 2.8 (1.0-4.8) k/uL Monocytes # 0.8 (0-1.0) k/uL Eosinophils # 0.1 (0-0.7) k/uL Basophils # 0.0 (0-0.2) k/uL PT 10.4 (9.0-12.0) sec INR 1.0 (<1.2) APTT 25.0 (22.0-30.0) sec Sodium 136 L (137-145) mmol/L Potassium 4.5 (3.5-5.1) mmol/L Chloride 102 (98-107) mmol/L Carbon Dioxide 22 (22-30) mmol/L Anion Gap 12 mmol/L BUN 19 (9-20) mg/dL Creatinine 0.86 (0.66-1.25) mg/dL Est GFR (CKD-EPI)AfAm >90 (>60 ml/min/1.73 sqM) Est GFR (CKD-EPI)NonAf >90 (>60 ml/min/1.73 sqM) Glucose 223 H (74-99) mg/dL Calcium 9.5 (8.4-10.2) mg/dL Magnesium 1.9 (1.6-2.3) mg/dL Total Bilirubin 0.5 (0.2-1.3) mg/dL AST 31 (17-59) U/L ALT 35 (21-72) U/L Alkaline Phosphatase 58 (38-126) U/L Troponin I (0.000-0.034) ng/mL Total Protein 6.8 (6.3-8.2) g/dL Albumin 4.4 (3.5-5.0) g/dL Lipase 57 (23-300) U/L 01/20/19 Range/Units 22:57 WBC (3.8-10.6) k/uL RBC (4.30-5.90) m/uL Hgb (13.0-17.5) gm/dL Hct (39.0-53.0) % MCV (80.0-100.0) fL MCH (25.0-35.0) pg MCHC (31.0-37.0) g/dL RDW (11.5-15.5) % Plt Count (150-450) k/uL Neutrophils % % Lymphocytes % % Monocytes % % Eosinophils % % Basophils % % Neutrophils # (1.3-7.7) k/uL Lymphocytes # (1.0-4.8) k/uL Monocytes # (0-1.0) k/uL Eosinophils # (0-0.7) k/uL Basophils # (0-0.2) k/uL PT (9.0-12.0) sec INR (<1.2) APTT (22.0-30.0) sec Sodium (137-145) mmol/L Potassium (3.5-5.1) mmol/L Chloride (98-107) mmol/L Carbon Dioxide (22-30) mmol/L Anion Gap mmol/L BUN (9-20) mg/dL Creatinine (0.66-1.25) mg/dL Est GFR (CKD-EPI)AfAm (>60 ml/min/1.73 sqM) Est GFR (CKD-EPI)NonAf (>60 ml/min/1.73 sqM) Glucose (74-99) mg/dL Calcium (8.4-10.2) mg/dL Magnesium (1.6-2.3) mg/dL Total Bilirubin (0.2-1.3) mg/dL AST (17-59) U/L ALT (21-72) U/L Alkaline Phosphatase (38-126) U/L Troponin I <0.012 (0.000-0.034) ng/mL Total Protein (6.3-8.2) g/dL Albumin (3.5-5.0) g/dL Lipase (23-300) U/L Disposition Clinical Impression: Tremor, Hyperglycemia Disposition: HOME SELF-CARE Condition: Stable Instructions (If sedation given, give patient instructions): Tremors (ED) Is patient prescribed a controlled substance at d/c from ED?: No Referrals: Celio Friedman MD [Primary Care Provider] - 1-2 days
[2019-01-21 01:46] VITALS: BP 172/80; PULSE 82
== END 2019-01-21 01:46 | disposition home or self-care (01) ==
LOC: EC 22:30
DX: E11.65 Type 2 diabetes mellitus with hyperglycemia (principal); R25.1 Tremor, unspecified; E86.0 Dehydration; J44.9 Chronic obstructive pulmonary disease, unspecified; I10 Essential (primary) hypertension; F41.9 Anxiety disorder, unspecified; F31.9 Bipolar disorder, unspecified; F25.9 Schizoaffective disorder, unspecified; F17.200 Nicotine dependence, unspecified, uncomplicated; Z79.4 Long term (current) use of insulin; Z79.51 Long term (current) use of inhaled steroids; Z79.82 Long term (current) use of aspirin; Z79.899 Other long term (current) drug therapy; Z88.8 Allergy status to other drugs, medicaments and biological substances; Z86.73 Personal history of transient ischemic attack (TIA), and cerebral infarction without residual deficits
CPT/HCPCS: 36415; 71046; 80053; 83690; 83735; 84484; 85025; 85610; 85730; 93005; 96360; 99284

== ENCOUNTER → 2019-11-28 | Outpatient (CLI) | payer MEDICARE, OTHER ==
[2019-11-28 12:38] LABS: Basophils % (A) 0 %; Eosinophils # (A) 0.1 k/uL (0-0.7); Eosinophils % (A) 1 %; HCT 47.4 % (39.0-53.0); HGB 16.6 gm/dL (13.0-17.5); Lymphocytes # (A) 3.5 k/uL (1.0-4.8); Lymphocytes % (A) 33 %; MCH 33.6 pg (25.0-35.0); MCV 95.8 fL (80.0-100.0); Mean Platelet Volume 7.7; Monocytes # (A) 1.1 k/uL (0-1.0); Monocytes % (A) 11 %; Neutrophils # (A) 5.5 k/uL (1.3-7.7); Neutrophils % (A) 52 %; Platelet Count 141 k/uL (150-450); RBC 4.95 m/uL (4.30-5.90); RDW 12.6 % (11.5-15.5); WBC 10.6 k/uL (3.8-10.6)
[2019-11-28 19:06] LABS: Albumin 4.5 g/dL (3.80-4.90); Albumin/Globulin Ratio 2.25 (1.60-3.17); Bilirubin, Conjugated 0.2 mg/dL (0.20-0.40); Bilirubin,Unconjugated 0.4 mg/dL; Total Bilirubin 0.6 mg/dL (0.2-1.2); Total Protein 6.5 g/dL (6.2-8.2)
[2019-11-28 19:13] LABS: Valproic Acid (Depakene) 80.6 ug/mL (50.0-100.0)
== END | disposition home or self-care (01) ==
LOC: LABWHC1 11:48
PROVIDERS: ATTEND Nurse Practitioner Family
DX: Z51.81 Encounter for therapeutic drug level monitoring (principal); Z79.899 Other long term (current) drug therapy
CPT/HCPCS: 36415; 80076; 80164; 85025

== ENCOUNTER 2019-12-02 08:29 | Emergency (ER) | payer MEDICARE, OTHER ==
[2019-12-02 08:34] LABS: Glucose,Whole Blood 563 mg/dL (75-99)
[2019-12-02 08:38] VITALS: TEMP 98
[2019-12-02] MEDS ORDERED: INSULIN REGULAR BOLUS (FROM DRIP BAG) IV ONE (08:39)
[2019-12-02] MEDS ORDERED: Potassium Replacement Protocol 1 EACH MISC MISCELLANE PRN (08:39)
[2019-12-02] MEDS ORDERED: Magnesium Replacement Protocol 1 EACH MISC MISCELLANE PRN (08:39)
--- NOTE | 2019-12-02 08:44 | ED ---
General Adult HPI - General Chief complaint: Recheck/Abnormal Lab/Rx Stated complaint: Hyperglycemia Time Seen by Provider: 12/02/19 08:30 Source: patient, EMS, RN notes reviewed, old records reviewed Mode of arrival: EMS Limitations: no limitations - History of Present Illness Initial comments: This is a 54-year-old male who presents emergency department from adult foster correction. Patient's sugar was 417 at the home and they sent him in.. Patient states he really isn't having a lot of symptoms. Patient states she was little nauseated earlier but didn't vomit. Patient denies diarrhea. Patient denies any fever chills or cough per patient chest pain difficulty breathing shortest breath per patient denies any headache patient denies numbness weakness. Patient denies lightheadedness dizziness or near syncopal episode. Patient states his sugars always over 250. Patient states he does not follow a diabetic diet at all. - Related Data Home Medications Medication Instructions Recorded Confirmed Divalproex ER [Depakote ER] 1,500 mg PO HS 09/19/16 01/20/19 Docusate [Colace] 100 mg PO BID 09/19/16 01/20/19 Insulin NPH Hum/Reg Insulin Hm 40 units SQ AC-TID 09/17/17 01/20/19 [NovoLIN 70-30 100 UNIT/ML VIAL] Metoprolol Tartrate [Lopressor] 50 mg PO BID 09/17/17 01/20/19 Amantadine HCl [Symmetrel] 100 mg PO TID 04/20/18 01/20/19 Diltiazem Cd [Cardizem CD] 120 mg PO DAILY 04/20/18 01/20/19 Diltiazem Cd [Cardizem CD] 240 mg PO DAILY 04/20/18 01/20/19 Ezetimibe [Zetia] 10 mg PO HS 04/20/18 01/20/19 Fluticasone/Salmeterol [Advair 1 puff INHALATION RT-BID 04/20/18 01/20/19 250-50 Diskus] Imipramine HCl [Tofranil] 50 mg PO HS 04/20/18 01/20/19 Insulin Regular, Human [NovoLIN R] 10 unit SQ AC-TID 04/20/18 01/20/19 LORazepam [Ativan] 0.5 mg PO DAILY PRN 04/20/18 01/20/19 LORazepam [Ativan] 1 mg PO HS 04/20/18 01/20/19 Lisinopril [Zestril] 20 mg PO DAILY 04/20/18 01/20/19 Geneseo-3 Fatty Acids [Geneseo-3] 1,000 mg PO DAILY 04/20/18 01/20/19 Pravastatin Sodium [Pravachol] 20 mg PO HS 04/20/18 01/20/19 Pregabalin [Lyrica] 75 mg PO DAILY 04/20/18 01/20/19 QUEtiapine FUMARATE [Seroquel Xr] 800 mg PO HS 04/20/18 01/20/19 Total B With C Caplet 1 tab PO DAILY 04/20/18 01/20/19 ARIPiprazole [Abilify] 5 mg PO DAILY 01/20/19 01/20/19 Aspirin EC [Ecotrin Low Dose] 81 mg PO DAILY 01/20/19 01/20/19 Dulaglutide [Trulicity] 0.75 mg SQ TH 01/20/19 01/20/19 Previous Rx's Medication Instructions Recorded Ranitidine HCl [Zantac] 150 mg PO HS #30 tab 08/03/18 Allergies Allergy/AdvReac Type Severity Reaction Status Date / Time amlodipine Allergy Unknown Verified 12/02/19 12:06 atorvastatin [From Lipitor] Allergy Unknown Verified 12/02/19 12:06 benztropine [From Cogentin] Allergy Unknown Verified 12/02/19 12:06 chlorpromazine Allergy Unknown Verified 12/02/19 12:06 [From Thorazine] fluphenazine [From Prolixin] Allergy Unknown Verified 12/02/19 12:06 gabapentin Allergy Unknown Verified 12/02/19 12:06 haloperidol [From Haldol] Allergy Unknown Verified 12/02/19 12:06 insulin glargine Allergy Unknown Verified 12/02/19 12:06 [From Lantus] metformin Allergy Unknown Verified 12/02/19 12:06 olanzapine [From Zyprexa] Allergy Unknown Verified 12/02/19 12:06 thiothixene Allergy Unknown Verified 12/02/19 12:06 ziprasidone [From Geodon] Allergy Unknown Verified 12/02/19 12:06 ABILIFY INJECTION Allergy Unknown Uncoded 01/20/19 22:46 INVEGA INJECTION Allergy Unknown Uncoded 01/20/19 22:46 Review of Systems ROS Statement: Those systems with pertinent positive or pertinent negative responses have been documented in the HPI. ROS Other: All systems not noted in ROS Statement are negative. Past Medical History Past Medical History: Asthma, COPD, CVA/TIA, Diabetes Mellitus, Hypertension Additional Past Medical History / Comment(s): Tremors History of Any Multi-Drug Resistant Organisms: None Reported Past Surgical History: Cholecystectomy Additional Past Surgical History / Comment(s): LEFT EYE Past Anesthesia/Blood Transfusion Reactions: No Reported Reaction Past Psychological History: Anxiety, Bipolar, Depression, Schizoaffective Disorder Smoking Status: Current every day smoker Past Alcohol Use History: None Reported Past Drug Use History: None Reported - Past Family History Father Family Medical History: Unable to Obtain General Exam - General Exam Comments Initial Comments: GENERAL: Patient is well-developed and well-nourished. Patient is nontoxic and well-hydrated and is in no acute distress. ENT: Neck is soft and supple. No significant lymphadenopathy is noted. Oropharynx is clear. Moist mucous membranes. Neck has full range of motion without eliciting any pain. EYES: The sclera were anicteric and conjunctiva were pink and moist. Extraocular movements were intact and pupils were equal round and reactive to light. Eyelids were unremarkable. PULMONARY: Unlabored respirations. Good breath sounds bilaterally. No audible rales rhonchi or wheezing was noted. CARDIOVASCULAR: There is a regular rate and rhythm without any murmurs gallops or rubs. ABDOMEN: Soft and nontender with normal bowel sounds. SKIN: Skin is clear with no lesions or rashes and otherwise unremarkable. NEUROLOGIC: Patient is alert and oriented x3. Cranial nerves II through XII are grossly intact. Motor and sensory are also intact. Normal speech, volume and content. Symmetrical smile. MUSCULOSKELETAL: Normal extremities with adequate strength and full range of motion. LYMPHATICS: No significant lymphadenopathy is noted PSYCHIATRIC: Normal psychiatric evaluation. Limitations: no limitations Course Vital Signs 12/02/19 12/02/19 12/02/19 08:32 09:30 10:00 Temperature 98.0 F Pulse Rate 83 Respiratory 17 Rate Blood Pressure 157/91 154/79 165/78 O2 Sat by Pulse 96 97 95 Oximetry 12/02/19 12/02/19 12/02/19 10:30 11:00 11:30 Temperature Pulse Rate 80 Respiratory 18 Rate Blood Pressure 152/81 167/147 120/94 O2 Sat by Pulse 96 Oximetry Medical Decision Making - Medical Decision Making EKG shows normal sinus rhythm at 82 bpm MD interval 260 QRS is 94 QT interval 362 QTC is 422. Patient's EKG shows no ST segment elevation or depression. Patient did not appear acidotic and patient's blood glucose came down to the 200 range which is where he is at baseline. Patient agrees to follow up with primary medical care doctor. - Lab Data Result diagrams: 12/02/19 08:41 12/02/19 08:41 Lab Results 12/02/19 12/02/19 12/02/19 Range/Units 08:33 08:41 08:41 WBC 7.4 (3.8-10.6) k/uL RBC 4.84 (4.30-5.90) m/uL Hgb 16.2 (13.0-17.5) gm/dL Hct 47.1 (39.0-53.0) % MCV 97.4 (80.0-100.0) fL MCH 33.5 (25.0-35.0) pg MCHC 34.4 (31.0-37.0) g/dL RDW 12.5 (11.5-15.5) % Plt Count 117 L (150-450) k/uL Neutrophils % 50 % Lymphocytes % 34 % Monocytes % 11 % Eosinophils % 2 % Basophils % 1 % Neutrophils # 3.7 (1.3-7.7) k/uL Lymphocytes # 2.5 (1.0-4.8) k/uL Monocytes # 0.8 (0-1.0) k/uL Eosinophils # 0.1 (0-0.7) k/uL Basophils # 0.0 (0-0.2) k/uL Sodium 134 L (137-145) mmol/L Potassium 5.0 (3.5-5.1) mmol/L Chloride 99 (98-107) mmol/L Carbon Dioxide 22 (22-30) mmol/L Anion Gap 13 mmol/L BUN (9-20) mg/dL Creatinine 0.89 (0.66-1.25) mg/dL Est GFR (CKD-EPI)AfAm >90 (>60 ml/min/1.73 sqM) Est GFR (CKD-EPI)NonAf >90 (>60 ml/min/1.73 sqM) Glucose 604 H* (74-99) mg/dL POC Glucose (mg/dL) 563 H (75-99) mg/dL POC Glu Revenue Integrity Analyst ID Terence Vigil Urine Color Urine Appearance (Clear) Urine pH (5.0-8.0) Ur Specific [place] (1.001-1.035) Urine Protein (Negative) Urine Glucose (UA) (Negative) Urine Ketones (Negative) Urine Blood (Negative) Urine Nitrite (Negative) Urine Bilirubin (Negative) Urine Urobilinogen (<2.0) mg/dL Ur Leukocyte Esterase (Negative) Acetone, Qual Negative (Negative) 12/02/19 12/02/19 12/02/19 Range/Units 08:41 08:50 10:08 WBC (3.8-10.6) k/uL RBC (4.30-5.90) m/uL Hgb (13.0-17.5) gm/dL Hct (39.0-53.0) % MCV (80.0-100.0) fL MCH (25.0-35.0) pg MCHC (31.0-37.0) g/dL RDW (11.5-15.5) % Plt Count (150-450) k/uL Neutrophils % % Lymphocytes % % Monocytes % % Eosinophils % % Basophils % % Neutrophils # (1.3-7.7) k/uL Lymphocytes # (1.0-4.8) k/uL Monocytes # (0-1.0) k/uL Eosinophils # (0-0.7) k/uL Basophils # (0-0.2) k/uL Sodium (137-145) mmol/L Potassium (3.5-5.1) mmol/L Chloride (98-107) mmol/L Carbon Dioxide (22-30) mmol/L Anion Gap mmol/L BUN 26 H (9-20) mg/dL Creatinine (0.66-1.25) mg/dL Est GFR (CKD-EPI)AfAm (>60 ml/min/1.73 sqM) Est GFR (CKD-EPI)NonAf (>60 ml/min/1.73 sqM) Glucose (74-99) mg/dL POC Glucose (mg/dL) 437 H (75-99) mg/dL POC Glu Revenue Integrity Analyst ID Geni Pretty Urine Color Light Yellow Urine Appearance Clear (Clear) Urine pH 5.5 (5.0-8.0) Ur Specific [place] 1.023 (1.001-1.035) Urine Protein Negative (Negative) Urine Glucose (UA) 4+ H (Negative) Urine Ketones Negative (Negative) Urine Blood Negative (Negative) Urine Nitrite Negative (Negative) Urine Bilirubin Negative (Negative) Urine Urobilinogen <2.0 (<2.0) mg/dL Ur Leukocyte Esterase Negative (Negative) Acetone, Qual (Negative) 12/02/19 12/02/19 Range/Units 11:11 12:18 WBC (3.8-10.6) k/uL RBC (4.30-5.90) m/uL Hgb (13.0-17.5) gm/dL Hct (39.0-53.0) % MCV (80.0-100.0) fL MCH (25.0-35.0) pg MCHC (31.0-37.0) g/dL RDW (11.5-15.5) % Plt Count (150-450) k/uL Neutrophils % % Lymphocytes % % Monocytes % % Eosinophils % % Basophils % % Neutrophils # (1.3-7.7) k/uL Lymphocytes # (1.0-4.8) k/uL Monocytes # (0-1.0) k/uL Eosinophils # (0-0.7) k/uL Basophils # (0-0.2) k/uL Sodium (137-145) mmol/L Potassium (3.5-5.1) mmol/L Chloride (98-107) mmol/L Carbon Dioxide (22-30) mmol/L Anion Gap mmol/L BUN (9-20) mg/dL Creatinine (0.66-1.25) mg/dL Est GFR (CKD-EPI)AfAm (>60 ml/min/1.73 sqM) Est GFR (CKD-EPI)NonAf (>60 ml/min/1.73 sqM) Glucose (74-99) mg/dL POC Glucose (mg/dL) 307 H 241 H (75-99) mg/dL POC Glu Revenue Integrity Analyst ID Dee Meza Meredith Urine Color Urine Appearance (Clear) Urine pH (5.0-8.0) Ur Specific [place] (1.001-1.035) Urine Protein (Negative) Urine Glucose (UA) (Negative) Urine Ketones (Negative) Urine Blood (Negative) Urine Nitrite (Negative) Urine Bilirubin (Negative) Urine Urobilinogen (<2.0) mg/dL Ur Leukocyte Esterase (Negative) Acetone, Qual (Negative) Disposition Clinical Impression: Hyperglycemia Disposition: HOME SELF-CARE Condition: Good Instructions (If sedation given, give patient instructions): Diabetic Hyperglycemia (ED) Additional Instructions: Patient should follow a strict diabetic diet. Patient should follow-up with primary medical care doctor Is patient prescribed a controlled substance at d/c from ED?: No Referrals: Celio Friedman MD [Primary Care Provider] - 1-2 days Time of Disposition: 12:29
[2019-12-02] MEDS ORDERED: SODIUM CHLORIDE 0.9% 1,000 ML IV SCH (08:45)
[2019-12-02] MEDS ORDERED: INSULIN REGULAR 100 UNIT in SODIUM CHLORIDE 0.9% 100 ML IV SCH (08:45)
[2019-12-02 08:58] LABS: Basophils % (A) 1 %; Eosinophils # (A) 0.1 k/uL (0-0.7); Eosinophils % (A) 2 %; HCT 47.1 % (39.0-53.0); HGB 16.2 gm/dL (13.0-17.5); Lymphocytes # (A) 2.5 k/uL (1.0-4.8); Lymphocytes % (A) 34 %; MCH 33.5 pg (25.0-35.0); MCHC 34.4 g/dL (31.0-37.0); MCV 97.4 fL (80.0-100.0); Mean Platelet Volume 7.7; Monocytes # (A) 0.8 k/uL (0-1.0); Monocytes % (A) 11 %; Neutrophils # (A) 3.7 k/uL (1.3-7.7); Neutrophils % (A) 50 %; Platelet Count 117 k/uL (150-450); RBC 4.84 m/uL (4.30-5.90); RDW 12.5 % (11.5-15.5); WBC 7.4 k/uL (3.8-10.6)
[2019-12-02 09:00] LABS: Appearance,Urine Clear (Clear); Bilirubin,Urine Negative (Negative); Blood,Urine Negative (Negative); Color,Urine Light Yellow; Glucose,Urine (UA) 4+ (Negative); Ketones,Urine Negative (Negative); Leukocyte Esterase,Urine Negative (Negative); Nitrite,Urine Negative (Negative); PH, Urine 5.5 (5.0-8.0); Protein,Urine Negative (Negative); Specific Gravity,Urine 1.023 (1.001-1.035); Urobilinogen,Urine <2.0 mg/dL (<2.0)
[2019-12-02 09:11] LABS: African American GFR (CKD) >90 (>60 ml/min/1.73 sqM); Anion Gap 13 mmol/L; Carbon Dioxide 22 mmol/L (22-30); Chloride 99 mmol/L (98-107); Non-African American GFR(CKD) >90 (>60 ml/min/1.73 sqM); Sodium 134 mmol/L (137-145)
[2019-12-02 09:22] LABS: Glucose 604 mg/dL (74-99)
[2019-12-02 10:10] LABS: Glucose,Whole Blood 437 mg/dL (75-99)
[2019-12-02 11:13] LABS: Glucose,Whole Blood 307 mg/dL (75-99)
[2019-12-02 11:34] VITALS: PULSE 80; RESP 18
[2019-12-02 12:20] LABS: Glucose,Whole Blood 241 mg/dL (75-99)
[2019-12-02 12:33] VITALS: BP 101/82
== END 2019-12-02 12:41 | disposition home or self-care (01) ==
LOC: EC 08:29
DX: E11.65 Type 2 diabetes mellitus with hyperglycemia (principal); J44.9 Chronic obstructive pulmonary disease, unspecified; I10 Essential (primary) hypertension; F31.9 Bipolar disorder, unspecified; F41.9 Anxiety disorder, unspecified; F25.9 Schizoaffective disorder, unspecified; F17.200 Nicotine dependence, unspecified, uncomplicated; Z88.8 Allergy status to other drugs, medicaments and biological substances; Z79.4 Long term (current) use of insulin; Z79.51 Long term (current) use of inhaled steroids; Z79.82 Long term (current) use of aspirin; Z79.899 Other long term (current) drug therapy; Z86.73 Personal history of transient ischemic attack (TIA), and cerebral infarction without residual deficits
CPT/HCPCS: 36415; 80051; 81003; 82009; 82565; 82947; 84520; 85025; 93005; 96360; 96361; 99285

== ENCOUNTER 2021-12-08 16:20 | Inpatient (IN) | payer MEDICARE, OTHER ==
[2021-12-08 18:42] LABS: Glucose,Whole Blood 337 mg/dL (75-99)
[2021-12-08] MEDS ORDERED: MAG HYDROX/AL HYDROX/SIMETH 30 ML CUP PO PRN (19:03)
[2021-12-08] MEDS ORDERED: MAGNESIUM HYDROXIDE 2,400 MG/10 ML CUP PO PRN (19:03)
[2021-12-08] MEDS: LORazepam 1 MG TAB PO PRN (19:20)
[2021-12-08] MEDS ORDERED: chlorproMAZINE 25 MG TAB PO PRN (19:20)
[2021-12-08] MEDS ORDERED: chlorproMAZINE 25 MG/ML 2 ML AMP IM PRN (19:20)
[2021-12-08] MEDS ORDERED: LORazepam 2 MG/ML INJ IM PRN (19:21)
[2021-12-08] MEDS ORDERED: diphenhydrAMINE 50 MG/ML 1 ML VIAL IM PRN (19:22)
[2021-12-08] MEDS ORDERED: diphenhydrAMINE 25 MG CAP PO PRN (19:22)
[2021-12-08] MEDS ORDERED: ARTIFICIAL TEARS-HYPROMELLOSE DROPS 15 ML BTL BOTH EYES PRN (19:54)
[2021-12-08 20:08] LABS: Glucose,Whole Blood 337 mg/dL (75-99)
[2021-12-08] MEDS: INSULIN REGULAR 100 UNIT/ML VIAL (IM/SQ) SQ SCH (20:36)
[2021-12-08] MEDS: SYMBICORT 80-4.5 MCG INHALER (MHU) INHALATION SCH (20:38)
[2021-12-08] MEDS: DIVALPROEX ER 500 MG TAB.ER.24H PO SCH (20:39)
[2021-12-08] MEDS: METOPROLOL TARTRATE 50 MG TAB PO SCH (20:39)
[2021-12-08] MEDS: ATORVASTATIN 20 MG TAB PO SCH (20:39)
[2021-12-08] MEDS: INSULIN DETEMIR (LEVEMIR) 100 UNIT/ML SYR SQ SCH (20:39)
[2021-12-08] MEDS: EZETIMIBE 10 MG TAB PO SCH (20:39)
[2021-12-08] MEDS: NYSTATIN 100,000UNIT/GM CREAM 30 GM TUBE TOPICAL SCH (20:40)
[2021-12-08] MEDS ORDERED: QUEtiapine 200 MG TAB PO STA (20:59)
[2021-12-08] MEDS ORDERED: NON FORMULARY DRUG (Glucosam/Chon-Msm1/C/Mang/Bosw [Glucosamine-Chondroitin Tablet] 1 EACH PO SCH (21:00)
[2021-12-08] MEDS ORDERED: QUEtiapine 400 MG TAB PO SCH (21:00)
[2021-12-08] MEDS ORDERED: INSULIN REGULAR 100 UNIT/ML VIAL (IM/SQ) SQ PRN (21:00)
[2021-12-09 02:16] LABS: Glucose,Whole Blood 203 mg/dL (75-99)
[2021-12-09 06:10] LABS: Glucose,Whole Blood 75 mg/dL (75-99)
[2021-12-09 06:22] LABS: Glucose,Whole Blood 167 mg/dL (75-99)
[2021-12-09 07:56] LABS: Glucose,Whole Blood 211 mg/dL (75-99)
[2021-12-09] MEDS: INSULIN REGULAR 100 UNIT/ML VIAL (IM/SQ) SQ SCH ×4 (08:44→20:22)
[2021-12-09] MEDS: DILTIAZEM CD 180 MG CAP.ER.24H PO SCH (08:45)
[2021-12-09] MEDS: PREGABALIN 75 MG CAP PO SCH (08:45)
[2021-12-09] MEDS: PANTOPRAZOLE 40 MG TABLET PO SCH (08:45)
[2021-12-09] MEDS: METOPROLOL TARTRATE 50 MG TAB PO SCH ×2 (08:45→20:26)
[2021-12-09] MEDS: NYSTATIN 100,000UNIT/GM CREAM 30 GM TUBE TOPICAL SCH ×2 (08:46→23:29)
[2021-12-09] MEDS: ASPIRIN 81 MG PO SCH (08:46)
[2021-12-09] MEDS: SYMBICORT 80-4.5 MCG INHALER (MHU) INHALATION SCH ×2 (08:48→21:09)
[2021-12-09] MEDS: LORazepam 1 MG TAB PO PRN ×2 (08:50→20:32)
[2021-12-09] MEDS ORDERED: DILTIAZEM CD 240 MG CAP.ER.24H PO SCH (09:00)
[2021-12-09 10:55] LABS: Chol/HDL Ratio 3.51 Ratio; LDL Cholesterol,Calculated 61.4 mg/dL (0.0-131.0)
--- NOTE | 2021-12-09 11:51 | P.HP ---
Psychiatric H&P - . H&P Date: 12/09/21 History & Physical: Allergies Allergy/AdvReac Type Severity Reaction Status Date / Time amlodipine Allergy Unknown Verified 12/08/21 20:42 aripiprazole From Abilify Allergy Unknown Verified 12/08/21 20:42 atorvastatin From Lipitor Allergy Unknown Verified 12/08/21 20:42 benztropine From Cogentin Allergy Unknown Verified 12/08/21 20:42 chlorpromazine Allergy Unknown Verified 12/08/21 20:42 From Thorazine fluphenazine From Prolixin Allergy Unknown Verified 12/08/21 20:42 gabapentin Allergy Unknown Verified 12/08/21 20:42 haloperidol From Haldol Allergy Unknown Verified 12/08/21 20:42 insulin glargine Allergy Unknown Verified 12/08/21 20:42 From Lantus metformin Allergy Unknown Verified 12/08/21 20:42 olanzapine From Zyprexa Allergy Unknown Verified 12/08/21 20:42 paliperidone From Invega Allergy Unknown Verified 12/08/21 20:42 thiothixene Allergy Unknown Verified 12/08/21 20:42 ziprasidone From Geodon Allergy Unknown Verified 12/08/21 20:42 ABILIFY INJECTION Allergy Unknown Uncoded 12/08/21 20:42 INVEGA INJECTION Allergy Unknown Uncoded 12/08/21 20:42 Vital Signs Temp 96.3 F L 12/09/21 06:04 Pulse 77 12/09/21 06:04 Resp 16 12/09/21 06:04 BP 135/70 12/09/21 06:04 Pulse Ox 98 12/08/21 18:23 Intake & Output 12/08/21 12/09/21 12/09/21 18:59 06:59 18:59 Weight 81.8 kg Laboratory Last Values POC Glucose (mg/dL) 211 mg/dL (75-99) H 12/09/21 07:54 POC Glu Aircraft Steel Fabricator ID Ramona Vasquez 12/09/21 07:[address] Glu mg/dL 184 12/09/21 07:29 Hemoglobin A1c 8.0 % (0.0-6.0) H 12/09/21 07:29 Triglycerides 122.00 mg/dL (0.00-149.00) 12/09/21 07:29 Cholesterol 120.00 mg/dL (0.00-200.00) 12/09/21 07:29 LDL Cholesterol, Calc 61.4 mg/dL (0.0-131.0) 12/09/21 07:29 VLDL Cholesterol, Calc 24.40 mg/dL (5.00-40.00) 12/09/21 07:29 HDL Cholesterol 34.20 mg/dL (40.00-60.00) L 12/09/21 07: Cholesterol/HDL Ratio 3.51 Ratio 12/09/21 07: TSH 0.962 mIU/L (0.465-4.680) 12/09/21 07:29 12/09/21 11:34 IDENTIFYING DATA: Patient is a 56-year-old male with history of schizoaffective disorder who currently lives at [facility] and has a guardian. HPI: Patient presented to the hospital on a petition and certificate. According to the petition states that patient he is in a "manic state" and also alluded to people were out to harm him. He saw officer also stated on the petition that patient made threats to kill staff and believe that they're following to kill him. Patient has a history of schizoaffective disorder and last psychiatrically hospitalized in 2017. Patient was seen today in his room and agreeable to senior mortgage underwriter. He appeared to have poor hygiene and grooming. Patient was diff icult to redirect during conversation and was illogical, rambling and tangential. He had loose associations as well. He was endorsing paranoia and had a stack of papers and talk about the police setting him up and plotting against him. Patient continued to ramble on about "bad stuff going on". He accuses journalists and other writers several times of "not being up to the task to handle this case" and repeatedly told journalists and other writers in eastern voice that "your fired I want a new doctor". He was very demanding. He claims that he hears auditory hallucinations of "singing and music". He adamantly claims that he is taking his medications. He denies any suicidal or homicidal ideations intent or plan. He claims that his sleep is fair. Patient denies using any recreational drugs however does claim that he smokes cigarettes. Patient has poor impulse control and does present paranoid. Patient became more paranoid and verbally aggressive with journalists and other writers and left the room and refused to answer further questions. PAST PSYCHIATRIC HISTORY: Patient has a history of schizoaffective disorder bipolar type. Patient is currently on Depakote and Seroquel and also amantadine. Patient's last psychiatric hospitalization was in 2017. Patient currently follows up with the nurse practitioner at [facility]. Patient denies any history of suicide attempts in the past. PMH: As per medicine H&P. ALLERGIES: as per EMR CHEMICAL DEPENDENCY HISTORY: as per HPI FAMILY PSYCHIATRIC/SUBSTANCE USE HISTORY: Unable to assess SOCIAL HISTORY: Patient currently lives at [facility]. He has a guardian. Unable to gather further information about his social history. MENTAL STATUS EXAM: General Appearance: Patient appears to be elderly, stated age is alert, difficult to redirect and hostile with journalists and other writers. Patient appears to have poor hygi megan and grooming. Behavior: Patient is seated without any agitated behavior. Hostile with journalists and other writers. Paranoid. Speech: Patient's speech is rambles, tangential. Mood/Affect: Patient reports their mood is "fine", affect is incongruent and constricted. Suicidality/Homicidality: Patient denies having any homicidal ideation intent or plan. Denies any suicidal ideations intent or plan Perceptions: Patient denies any visual hallucinations and denies any auditory hallucinations Though content/process: Rambles, tangential/circumstantial. No loose associations. Paranoia. Memory and concentration: AOX3, grossly intact for the purposes of this session. Poor attention span. Judgment and insight: poor STRENGTHS/WEAKNESSES: strength is that patient is resilient. Weakness is that patient has poor judgment and is impulsive INTELLECT: average IMPRESSIONS: Schizoaffective disorder, bipolar type Nicotine dependence PLAN: -Patient is admitted under voluntary status to [facility] for stabilization of psychiatric symptoms and safety. Patient has not signed adult voluntary form or medication consent and is placed in patient's chart. A second certification was completed and along with petition will be filed for court. -Medications : Will start patient on Seroquel 400 mg daily at bedtime +50 mg daily for mood stabilization/psychosis. Continue Depakote 1500 mg daily at bedtime for mood stabilization. Continue with amantadine 100 mg 3 times a day. -Ativan PRN for agitation/aggression -Patient was informed of the risks, benefits and side effects of the medication and patient declined to sign medication consent. -Internal Medicine consult to perform medical evaluation and physical. -NRT - nicotine patch -SW on board for discharge planning. Encourage patient to participate in groups to work on coping skills. Will await deferral and court date.
[2021-12-09 12:03] LABS: Glucose,Whole Blood 96 mg/dL (75-99)
[2021-12-09] MEDS: PATIENT'S OWN (Dulaglutide [Trulicity] 1.5 MG/0.5 ML Each) SQ SCH (12:12)
[2021-12-09] MEDS: QUEtiapine 50 MG TAB PO SCH (12:12)
[2021-12-09 17:41] LABS: Glucose,Whole Blood 265 mg/dL (75-99)
[2021-12-09 20:21] LABS: Glucose,Whole Blood 317 mg/dL (75-99)
[2021-12-09] MEDS: INSULIN DETEMIR (LEVEMIR) 100 UNIT/ML SYR SQ SCH (20:22)
[2021-12-09] MEDS: EZETIMIBE 10 MG TAB PO SCH (20:25)
[2021-12-09] MEDS: DIVALPROEX ER 500 MG TAB.ER.24H PO SCH (20:25)
[2021-12-09] MEDS: ATORVASTATIN 20 MG TAB PO SCH (20:27)
[2021-12-09] MEDS ORDERED: INSULIN REGULAR 100 UNIT/ML VIAL (IM/SQ) SQ SCH (21:00)
[2021-12-09] MEDS ORDERED: QUEtiapine 200 MG TAB PO SCH (21:00)
[2021-12-09] MEDS ORDERED: QUEtiapine 400 MG TAB PO SCH (21:00)
[2021-12-10 07:51] LABS: Glucose,Whole Blood 135 mg/dL (75-99)
[2021-12-10] MEDS: SYMBICORT 80-4.5 MCG INHALER (MHU) INHALATION SCH ×2 (07:54→20:07)
[2021-12-10] MEDS: INSULIN REGULAR 100 UNIT/ML VIAL (IM/SQ) SQ SCH ×3 (07:54→17:33)
[2021-12-10] MEDS: ASPIRIN 81 MG PO SCH (07:55)
[2021-12-10] MEDS: METOPROLOL TARTRATE 50 MG TAB PO SCH ×2 (07:55→20:16)
[2021-12-10] MEDS: QUEtiapine 50 MG TAB PO SCH (07:55)
[2021-12-10] MEDS: PREGABALIN 75 MG CAP PO SCH (07:55)
[2021-12-10] MEDS: PANTOPRAZOLE 40 MG TABLET PO SCH (07:55)
[2021-12-10] MEDS: DILTIAZEM CD 180 MG CAP.ER.24H PO SCH (07:56)
[2021-12-10] MEDS: NYSTATIN 100,000UNIT/GM CREAM 30 GM TUBE TOPICAL SCH ×2 (07:57→20:19)
[2021-12-10] MEDS: LORazepam 1 MG TAB PO PRN ×2 (09:10→17:33)
[2021-12-10 12:48] LABS: Glucose,Whole Blood 114 mg/dL (75-99)
--- NOTE | 2021-12-10 15:45 | P.PN ---
Progress Note - Text Progress Note Date: 12/10/21 Interval History: Patient was seen wandering the hallways and was directable and agreeable to sp juliok with leader writer in the office. Patient continues to ramble and is difficult to interrupt. He has a flight of ideas today. He appeared to be more cooperative and appropriate during conversation. He continues to speak about being "set up" and when asked more about this she states that "I told you I don't want to go into it". He continues to have a mistrust against the police. He states that he slept approximately 3 hours last night and request to have his Seroquel increased. He claims that he was on "800 mg" in the past. He was fairly focused on his medications. He continues to speak negatively towards leader writer. He asked leader writer several times while he is in the hospital. He has poor insight and judgment. Poor hygiene and grooming. At this time patient denies any suicidal or homical ideations, intent or plan. Patient denies any auditory, visual hallucinations and denies any paranoia or delusions. Patient denies any side effects from the medications and has been compliant with meds. He continues to ask leader writer several times as to why he put the word "paranoid" into the certificate. Mental Status Exam: General Appearance: Patient appears to be elderly, stated age is alert, dif ficult to redirect. Patient appears to have improving hygiene and grooming. Behavior: Patient is seated without any agitated behavior. Hostile with leader writer, and proving mildly. Paranoid, improving mildly Speech: Patient's speech is rambles, tangential. Mood/Affect: Patient reports their mood is "fine", affect is incongruent and constricted. Suicidality/Homicidality: Patient denies having any homicidal ideation intent or plan. Denies any suicidal ideations intent or plan Perceptions: Patient denies any visual hallucinations and denies any auditory hallucinations Though content/process: Rambles, tangential/circumstantial. No loose associations. Paranoia, improving mildly Memory and concentration: AOX3, grossly intact for the purposes of this session. Judgment and insight: Chronically poor IMPRESSIONS: Schizoaffective disorder, bipolar type Nicotine dependence Plan: -Patient continues to meet criteria for inpatient psychiatric admission for symptom stabilization and safety. Patient has not signed adult voluntary form and medication consent and was placed in patient's chart. -Medications: Increase Seroquel to 500 mg daily at bedtime for mood stabilization/psychosis. Continue Depakote 1500 mg daily at bedtime for mood stabilization. Continue with amantadine 100 mg 3 times a day. -When necessary Ativan for agitation/aggression. -NRT - nicotine patch -SW on board for discharge planning. Encouraged the patient to participate in milieu. Deferral set for today, full hearing on 12/15 at 11:15 AM.
[2021-12-10 17:26] LABS: Glucose,Whole Blood 230 mg/dL (75-99)
[2021-12-10 19:35] LABS: Glucose,Whole Blood 295 mg/dL (75-99)
[2021-12-10] MEDS: INSULIN DETEMIR (LEVEMIR) 100 UNIT/ML SYR SQ SCH (20:10)
[2021-12-10] MEDS: QUEtiapine 200 MG TAB PO SCH (20:16)
[2021-12-10] MEDS: ATORVASTATIN 20 MG TAB PO SCH (20:17)
[2021-12-10] MEDS: EZETIMIBE 10 MG TAB PO SCH (20:17)
[2021-12-10] MEDS: DIVALPROEX ER 500 MG TAB.ER.24H PO SCH (20:17)
[2021-12-10] MEDS: HYDROCORTISONE 2.5% RECTAL CREAM 30 GM TUBE RECTAL PRN (20:19)
--- NOTE | 2021-12-10 22:17 | CONS ---
CONSULTATION HISTORY OF PRESENT ILLNESS: Lucas Dumont is admitted to the [facility]. A 56-year-old white male discussed the case with the nurse yesterday. Patient's sugars have been high and he does not like getting Accu-Cheks in the hospital. He normally takes 7 units of insulin with meals plus scale. We are going to increase. Instead of doing Accu-Cheks all the time, give 10 units of regular insulin with meals. He has some psychotic episodes as an outpatient. Manic episodes at which time he was sent to the [facility] here. PAST MEDICAL HISTORY: History of COPD and nicotine addiction. MEDICATIONS: Reviewed. See list. ALLERGIES: All reviewed. See list. 14-point review of systems: Please see list. PLAN: He is in the [facility]. Sugars will be start him on Seroquel 400 at nighttime and 50 during the day. Continue his Depakote, amantadine 100 mg t.i.d., Ativan p.r.n. for aggression. Insulin-dependent diabetes mellitus. Home medicines will be given. His long-acting insulin will be continued. Increase his regular insulin at 10 units with meals. Nicotine patch. PROGNOSIS: Guarded. MMODL / IJN: [id number] /
[2021-12-10 22:53] LABS: Glucose,Whole Blood 222 mg/dL (75-99)
[2021-12-11 02:27] LABS: Glucose,Whole Blood 116 mg/dL (75-99)
[2021-12-11 04:50] LABS: Glucose,Whole Blood 79 mg/dL (75-99)
[2021-12-11 04:50] LABS: Glucose,Whole Blood 60 mg/dL (75-99)
[2021-12-11 07:47] LABS: Glucose,Whole Blood 214 mg/dL (75-99)
[2021-12-11] MEDS: SYMBICORT 80-4.5 MCG INHALER (MHU) INHALATION SCH ×2 (07:51→22:11)
[2021-12-11] MEDS: PANTOPRAZOLE 40 MG TABLET PO SCH (07:51)
[2021-12-11] MEDS: INSULIN REGULAR 100 UNIT/ML VIAL (IM/SQ) SQ SCH ×4 (07:51→17:48)
[2021-12-11] MEDS: DILTIAZEM CD 180 MG CAP.ER.24H PO SCH (07:51)
[2021-12-11] MEDS: ASPIRIN 81 MG PO SCH (07:52)
[2021-12-11] MEDS: METOPROLOL TARTRATE 50 MG TAB PO SCH ×2 (07:52→21:51)
[2021-12-11] MEDS: NYSTATIN 100,000UNIT/GM CREAM 30 GM TUBE TOPICAL SCH ×2 (07:52→22:11)
[2021-12-11] MEDS: PREGABALIN 75 MG CAP PO SCH (07:53)
[2021-12-11] MEDS: LORazepam 1 MG TAB PO PRN ×2 (11:02→22:07)
[2021-12-11 12:47] LABS: Glucose,Whole Blood 133 mg/dL (75-99)
[2021-12-11] MEDS ORDERED: NICOTINE GUM (POLACRILEX) 2 MG GUM BUCCAL PRN (12:54)
[2021-12-11 17:48] LABS: Glucose,Whole Blood 211 mg/dL (75-99)
[2021-12-11 20:16] LABS: Glucose,Whole Blood 298 mg/dL (75-99)
[2021-12-11] MEDS: ATORVASTATIN 20 MG TAB PO SCH (21:50)
[2021-12-11] MEDS: DIVALPROEX ER 500 MG TAB.ER.24H PO SCH (21:50)
[2021-12-11] MEDS: EZETIMIBE 10 MG TAB PO SCH (21:51)
[2021-12-11] MEDS: QUEtiapine 200 MG TAB PO SCH (21:51)
[2021-12-11] MEDS: INSULIN DETEMIR (LEVEMIR) 100 UNIT/ML SYR SQ SCH (22:08)
[2021-12-12 08:02] LABS: Glucose,Whole Blood 91 mg/dL (75-99)
[2021-12-12] MEDS: INSULIN REGULAR 100 UNIT/ML VIAL (IM/SQ) SQ SCH ×4 (08:35→19:39)
[2021-12-12] MEDS: PREGABALIN 75 MG CAP PO SCH (08:35)
[2021-12-12] MEDS: ASPIRIN 81 MG PO SCH (08:35)
[2021-12-12] MEDS: SYMBICORT 80-4.5 MCG INHALER (MHU) INHALATION SCH ×2 (08:35→21:29)
[2021-12-12] MEDS: METOPROLOL TARTRATE 50 MG TAB PO SCH ×2 (08:35→21:34)
[2021-12-12] MEDS: DILTIAZEM CD 180 MG CAP.ER.24H PO SCH (08:36)
[2021-12-12] MEDS: NYSTATIN 100,000UNIT/GM CREAM 30 GM TUBE TOPICAL SCH ×2 (08:37→21:30)
[2021-12-12] MEDS: PANTOPRAZOLE 40 MG TABLET PO SCH (08:37)
[2021-12-12 12:47] LABS: Glucose,Whole Blood 187 mg/dL (75-99)
[2021-12-12 17:35] LABS: Glucose,Whole Blood 112 mg/dL (75-99)
--- NOTE | 2021-12-12 19:13 | P.PN ---
Progress Note - Text Progress Note Date: 12/11/21 Interval history: Patient was seen in his room and was directable and agreeable to speak with auto service writer. States that he is doing "all right" and denies paranoia. became irritable when told about the presentation that led to hospitalization. At this time patient denies any suicidal or homicidal ideations intent or plan. Denies any Auditory or visual hallucinations. Patient denies any side effects from the medications and has been compliant with meds. Mental status exam: General Appearance: [Patient appears to be older than stated age is alert, directable, and cooperative.] Behavior: [Patient is calm and directable] Speech: Patient's speech is fluent and nonpressured. Mood/Affect: Mood is "alright", affect is congruent and constricted. Suicidality/Homicidality: Patient denies having any suicidal or homicidal ideation intent or plan. Perceptions: Patient denies any auditory or visual hallucinations. Though content/process: [There is no evidence of any delusional thought content and thought process is linear and goal-directed.] Memory and concentration: AOX3, grossly intact for the purposes of this session Judgment and insight: improving mildly Assessment/Plan: Continue with current diagnosis. Patient continues to meet criteria for inpatient psychiatric admission for symptom stabilization and safety.[Patient will be maintained on current psychotropic medication regimen.] Monitor for medication compliance and for any psychotropic medication side effects. Will continue to monitor ongoing response to treatment. Encouraged participation in milieu.
--- NOTE | 2021-12-12 19:15 | P.PN ---
Progress Note - Text Progress Note Date: 12/12/21 Interval history: Patient was seen in his room and was directable and agreeable to speak with remote mortgage underwriter. States that he is doing "good" and denies paranoia. became irritable when told about the presentation that led to hospitalization. He took out a list of all the medications that he is supposed to be on and states that he supposed to be on 800 mg of Seroquel. At this time patient denies any suicidal or homicidal ideations intent or plan. Denies any Auditory or visual oleary llucinations. Patient denies any side effects from the medications and has been compliant with meds. Mental status exam: General Appearance: [Patient appears to be older than stated age is alert, d irectable, and cooperative.] Behavior: [Patient is calm and directable] Speech: Patient's speech is fluent and nonpressured. Mood/Affect: Mood is "good", affect is congruent and constricted. Suicidality/Homicidality: Patient denies having any suicidal or homicidal ideation intent or plan. Perceptions: Patient denies any auditory or visual hallucinations. Though content/process: [There is no evidence of any delusional thought content and thought process is linear and goal-directed.] Memory and concentration: AOX3, grossly intact for the purposes of this session Judgment and insight: improving mildly Assessment/Plan: Continue with current diagnosis. Patient continues to meet criteria for inpatient psychiatric admission for symptom stabilization and safety.[Patient will be maintained on current psychotropic medication regimen.] Monitor for medication compliance and for any psychotropic medication side effects. Will continue to monitor ongoing response to treatment. Encouraged participation in milieu.
[2021-12-12 20:03] LABS: Glucose,Whole Blood 206 mg/dL (75-99)
[2021-12-12 21:27] LABS: Glucose,Whole Blood 240 mg/dL (75-99)
[2021-12-12] MEDS: ATORVASTATIN 20 MG TAB PO SCH (21:30)
[2021-12-12] MEDS: QUEtiapine 200 MG TAB PO SCH (21:32)
[2021-12-12] MEDS: HYDROCORTISONE 2.5% RECTAL CREAM 30 GM TUBE RECTAL PRN (21:32)
[2021-12-12] MEDS: EZETIMIBE 10 MG TAB PO SCH (21:33)
[2021-12-12] MEDS: DIVALPROEX ER 500 MG TAB.ER.24H PO SCH (21:34)
[2021-12-12] MEDS: INSULIN DETEMIR (LEVEMIR) 100 UNIT/ML SYR SQ SCH (21:35)
[2021-12-13 03:11] LABS: Glucose,Whole Blood 107 mg/dL (75-99)
[2021-12-13 08:08] LABS: Glucose,Whole Blood 82 mg/dL (75-99)
[2021-12-13] MEDS: INSULIN REGULAR 100 UNIT/ML VIAL (IM/SQ) SQ SCH ×3 (08:17→18:02)
[2021-12-13] MEDS: ALBUTEROL INHALER 60 PUFF/8 GM INHALER (MHU) INHALATION PRN ×2 (08:22→20:59)
[2021-12-13] MEDS: DILTIAZEM CD 180 MG CAP.ER.24H PO SCH (08:22)
[2021-12-13] MEDS: METOPROLOL TARTRATE 50 MG TAB PO SCH ×2 (08:23→21:02)
[2021-12-13] MEDS: ASPIRIN 81 MG PO SCH (08:23)
[2021-12-13] MEDS: SYMBICORT 80-4.5 MCG INHALER (MHU) INHALATION SCH ×2 (08:23→21:05)
[2021-12-13] MEDS: PANTOPRAZOLE 40 MG TABLET PO SCH (08:23)
[2021-12-13] MEDS: PREGABALIN 75 MG CAP PO SCH (08:24)
[2021-12-13] MEDS: ACETAMINOPHEN TAB 325 MG TAB PO PRN (08:24)
[2021-12-13] MEDS: NYSTATIN 100,000UNIT/GM CREAM 30 GM TUBE TOPICAL SCH ×2 (08:27→21:05)
[2021-12-13] MEDS: HYDROCORTISONE 2.5% RECTAL CREAM 30 GM TUBE RECTAL PRN (08:29)
[2021-12-13 12:39] LABS: Glucose,Whole Blood 132 mg/dL (75-99)
[2021-12-13 18:10] LABS: Glucose,Whole Blood 212 mg/dL (75-99)
--- NOTE | 2021-12-13 18:22 | P.PN ---
Subjective Progress Note Date: 12/13/21 Principal diagnosis: progress note He was seen today in his room. He complained of the treatment in the home where he has been living for quite a while. He talked about the loss of his autonomy and the expectation that he has congruous low-salt chores to maintain his residence. He is calm and improved inhis mood, He ruminated over his treatment at the supervised senior living where he stayed. He disliked the restrictions and the expectations for him to maintain his ADL tasks. He did not talk about his need to accepting his treatment for his comorbid diabetes in addition to his psychotropic medications consisting of Depakote 1500 mg and seroquel at 500 mg od. I noted that he was to continue on amantadine.I am uncertain whether he had drug related Parkinsonism or whether he has l. Parkinson disease. He continued on insulin medication. no active psychotic symptoms of hallucinatons. He was quite comfortable and his current mean use. He has [employer] programs and solve his psychotic symptoms. Most 90s he can be transferred back to the home. Adjustment with intermittent use was further reinforced. Diag: chizophrenia chronic Cognitive impairment was most likely is to call symptoms as well as his negative symptoms. Management plan 1. continue on his current medication regimen 2 he fulfils the criteria for inpatient stay 3. we will monitor. his Treatment response and and his side effect profile. 4Most likely discharge within l week Objective - Vital Signs Vital signs: Vital Signs Temp 96.9 F L 12/13/21 03:53 Pulse 77 12/13/21 08:21 Resp 16 12/13/21 03:53 BP 152/78 12/13/21 08:21 Pulse Ox 96 12/11/21 07:55 Intake & Output 12/12/21 12/13/21 12/13/21 18:59 06:59 18:59 Weight 81.448 kg - Labs Labs: Abnormal Lab Results - Last 24 Hours (Table) 12/12/21 12/12/21 12/13/21 Range/Units 20:00 21:25 03:09 POC Glucose (mg/dL) 206 H 240 H 107 H (75-99) mg/dL 12/13/21 12/13/21 Range/Units 12:38 17:58 POC Glucose (mg/dL) 132 H 212 H (75-99) mg/dL
[2021-12-13 19:53] LABS: Glucose,Whole Blood 281 mg/dL (75-99)
[2021-12-13] MEDS: INSULIN DETEMIR (LEVEMIR) 100 UNIT/ML SYR SQ SCH (21:00)
[2021-12-13] MEDS: EZETIMIBE 10 MG TAB PO SCH (21:01)
[2021-12-13] MEDS: ATORVASTATIN 20 MG TAB PO SCH (21:01)
[2021-12-13] MEDS: DIVALPROEX ER 500 MG TAB.ER.24H PO SCH (21:01)
[2021-12-13] MEDS: QUEtiapine 200 MG TAB PO SCH (21:02)
[2021-12-14 08:02] LABS: Glucose,Whole Blood 85 mg/dL (75-99)
[2021-12-14] MEDS: ALBUTEROL INHALER 60 PUFF/8 GM INHALER (MHU) INHALATION PRN (08:57)
[2021-12-14] MEDS: SYMBICORT 80-4.5 MCG INHALER (MHU) INHALATION SCH ×2 (08:57→20:39)
[2021-12-14] MEDS: DILTIAZEM CD 180 MG CAP.ER.24H PO SCH (08:59)
[2021-12-14] MEDS: NYSTATIN 100,000UNIT/GM CREAM 30 GM TUBE TOPICAL SCH ×2 (09:01→20:41)
[2021-12-14] MEDS: METOPROLOL TARTRATE 50 MG TAB PO SCH ×2 (09:01→20:41)
[2021-12-14] MEDS: PREGABALIN 75 MG CAP PO SCH (09:01)
[2021-12-14] MEDS: HYDROCORTISONE 2.5% RECTAL CREAM 30 GM TUBE RECTAL PRN ×2 (09:01→19:13)
[2021-12-14] MEDS: PANTOPRAZOLE 40 MG TABLET PO SCH (09:01)
[2021-12-14] MEDS: ASPIRIN 81 MG PO SCH (09:01)
[2021-12-14] MEDS: INSULIN REGULAR 100 UNIT/ML VIAL (IM/SQ) SQ SCH ×3 (09:08→18:03)
[2021-12-14 12:00] LABS: Glucose,Whole Blood 65 mg/dL (75-99)
[2021-12-14 12:17] LABS: Glucose,Whole Blood 108 mg/dL (75-99)
--- NOTE | 2021-12-14 17:43 | P.PN ---
Subjective Progress Note Date: 12/14/21 Principal diagnosis: He was seen today face to face in his room. He was aware in a diffuse way of the upcoming court appearance but had not idea of the contextual issue of court case probate court for his commitment . He was resting quietly in bed . He greeted me appropriately in his bed with rambling speech. He referred to two components; schizo-affective disorder with his involvement in [employer] accounts. He referred to music playing inside his head as if he was constantly hallucinating. He has marked loosening of associations with auditory hallucinations. He did not have sucidal or homicidal ideation . His cognition: oreinted. not confused. 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 Case would be presneted by Dr. Rizzo. No Rx adjustment until court case is adjudicated. Objective - Vital Signs Vital signs: Vital Signs Temp 96.3 F L 12/14/21 06:58 Pulse 68 12/14/21 06:58 Resp 16 12/14/21 06:58 BP 123/74 12/14/21 06:58 Pulse Ox 96 12/11/21 07:55 - Labs Labs: Abnormal Lab Results - Last 24 Hours (Table) 12/13/21 12/13/21 12/14/21 Range/Units 17:58 19:50 11:51 POC Glucose (mg/dL) 212 H 281 H 65 L (75-99) mg/dL 12/14/21 Range/Units 12:14 POC Glucose (mg/dL) 108 H (75-99) mg/dL
[2021-12-14 18:03] LABS: Glucose,Whole Blood 194 mg/dL (75-99)
[2021-12-14 20:24] LABS: Glucose,Whole Blood 208 mg/dL (75-99)
[2021-12-14] MEDS: ATORVASTATIN 20 MG TAB PO SCH (20:40)
[2021-12-14] MEDS: DIVALPROEX ER 500 MG TAB.ER.24H PO SCH (20:40)
[2021-12-14] MEDS: EZETIMIBE 10 MG TAB PO SCH (20:40)
[2021-12-14] MEDS: QUEtiapine 200 MG TAB PO SCH (20:41)
[2021-12-14] MEDS ORDERED: INSULIN DETEMIR (LEVEMIR) 100 UNIT/ML SYR SQ SCH (21:00)
[2021-12-14] MEDS: ACETAMINOPHEN TAB 325 MG TAB PO PRN (21:00)
--- NOTE | 2021-12-14 21:34 | P.PN ---
Progress Note - Text Progress Note Date: 12/14/21 Presenting complaint: Low sugar Hospital course: I'm rounding for Dr. Celio Friedman today. December 14: Patient in 3 W. Did eat some today. Accu-Cheks low this morning. Patient wants his home dose of Motrin and eyedrops systane. Has been rather sleepy. No chest pain. Breathing is stable. Oral intake has been fluctuating. Active Medications Acetaminophen (Acetaminophen Tab 325 Mg Tab) 650 mg PO Q4HR PRN PRN Reason: Pain/Discomfort Last Admin: 12/14/21 21:00 Dose: 650 mg Documented by: Al Hydroxide/Mg Hydroxide (Mag Hydrox/Al Hydrox/Simeth 30 Ml Cup) 30 ml PO Q4HR PRN PRN Reason: GI Upset Albuterol Sulfate (Albuterol Inhaler 60 Puff/8 Gm Inhaler (u)) 2 puff INHALATION RT-Q6H PRN PRN Reason: Shortness Of Breath Last Admin: 12/14/21 08:57 Dose: 2 puff Documented by: Amantadine HCl (Amantadine Hcl 100 Mg Cap) 100 mg PO TID [facility] Last Admin: 12/14/21 20:42 Dose: 100 mg Documented by: Artificial Tears (Artificial Tears-Hypromellose Drops 15 Ml Btl) 2 drops BOTH EYES BID PRN PRN Reason: DRY EYES Aspirin (Aspirin 81 Mg) 81 mg PO DAILY [facility] Last Admin: 12/14/21 09:01 Dose: 81 mg Documented by: Atorvastatin Calcium (Atorvastatin 20 Mg Tab) 20 mg PO HS [facility] Last Admin: 12/14/21 20:40 Dose: Not Given Documented by: Budesonide/Formoterol Fumarate (Symbicort 80-4.5 Mcg Inhaler ([facility] 2 puff INHALATION RT-BID [facility] Last Admin: 12/14/21 20:39 Dose: 2 puff Documented by: Diltiazem HCl (Diltiazem Cd 180 Mg Cap.Er.24h) 360 mg PO DAILY [facility] Last Admin: 12/14/21 08:59 Dose: 360 mg Documented by: Diphenhydramine HCl (Diphenhydramine 25 Mg Cap) 50 mg PO QID PRN PRN Reason: Insomnia Diphenhydramine HCl (Diphenhydramine 50 Mg/Ml 1 Ml Vial) 50 mg IM QID PRN PRN Reason: Agitation or Acute Anxiety Divalproex Sodium (Divalproex Er 500 Mg Tab.Er.24h) 1,500 mg PO [facility] Last Admin: 12/14/21 20:40 Dose: 1,500 mg Documented by: Ezetimibe (Ezetimibe 10 Mg Tab) 10 mg PO [facility] Last Admin: 12/14/21 20:40 Dose: 10 mg Documented by: Hydrocortisone (Hydrocortisone 2.5% Rectal Cream 30 Gm Tube) 1 applic RECTAL QID PRN PRN Reason: Hemorrhoids Last Admin: 12/14/21 19:13 Dose: 1 applic Documented by: Ibuprofen (Ibuprofen 200 Mg Tab) 200 mg PO BID PRN PRN Reason: Pain Insulin Detemir (Insulin Detemir (Levemir) 100 Unit/Ml Syr) 66 unit SQ [facility] Last Admin: 12/14/21 20:43 Dose: 66 unit Documented by: Insulin Human Regular (Insulin Regular 100 Unit/Ml Vial (Im/Sq)) 10 unit SQ TID-W/MEALS [facility] Last Admin: 12/14/21 18:03 Dose: 10 unit Documented by: Lactic Acid (Ammonium Lactate 12% Lotion 225 Gm Btl) 1 applic TOPICAL BID PRN; Protocol PRN Reason: Dry Skin Lorazepam (Lorazepam 1 Mg Tab) 2 mg PO QID PRN PRN Reason: Agitation or Acute Anxiety Last Admin: 12/11/21 22:07 Dose: 2 mg Documented by: Lorazepam (Lorazepam 2 Mg/Ml Inj) 2 mg IM QID PRN PRN Reason: Agitation or Acute Anxiety Magnesium Hydroxide (Magnesium Hydroxide 2,400 Mg/10 Ml Cup) 2,400 mg PO DAILY PRN PRN Reason: Constipation Metoprolol Tartrate (Metoprolol Tartrate 50 Mg Tab) 50 mg PO BID [facility] Last Admin: 12/14/21 20:41 Dose: 50 mg Documented by: Nicotine Polacrilex (Nicotine Gum (Polacrilex) 2 Mg Gum) 2 mg BUCCAL Q2HR PRN PRN Reason: Nicotine Cravings Patient's Own ( Dulaglutide [ Trulicity] 1.5 Mg/0. 5 Ml Each) 1.5 mg SQ [facility] Last Admin: 12/09/21 12:12 Dose: Not Given Documented by: Nystatin (Nystatin 100,000unit/Gm Cream 30 Gm Tube) 1 applic TOPICAL BID [facility]; Protocol Last Admin: 12/14/21 20:41 Dose: 1 applic Documented by: Pantoprazole Sodium (Pantoprazole 40 Mg Tablet) 40 mg PO DAILY [facility] Last Admin: 12/14/21 09:01 Dose: 40 mg Documented by: Pregabalin (Pregabalin 75 Mg Cap) 75 mg PO DAILY [facility] Last Admin: 12/14/21 09:01 Dose: 75 mg Documented by: Quetiapine Fumarate (Quetiapine 200 Mg Tab) 500 mg PO HS [facility] Last Admin: 12/14/21 20:41 Dose: 500 mg Documented by: On examination: VITAL SIGNS: 96.3, 68, 16, 123/74, 100% room air GENERAL APPEARANCE: Tired, laying in bed. HEENT: Normal external appearance of nose and ear. Oral cavity normal EYES: Pupils equal. Conjunctiva normal. NECK: JVD not raised. Mass not palpable. RESPIRATORY: Respiratory effort normal. Lungs decreased breath sounds CARDIOVASCULAR: First and second sounds normal. No edema. ABDOMEN: Soft. Liver and spleen not palpable. No tenderness. No mass palpable. PSYCHIATRY: Anxious but able to answer simple questions Investigations: Accu-Cheks: 65, 18, 194, 208 Assessment and plan: -Diabetes mellitus type 2, chronically on insulin. Uncontrolled with hypoglycemia. Contact Levemir to 66 units subcu daily at bedtime. Continue with Humulin R. -COPD in a current smoker Symbicort 80/4.5 one puff twice a day Ventolin HFA when necessary -GERD Protonix 40 mg a day -Essential hypertension Lopressor 50 mg twice a day Cardizem CD 360 mg daily -Hyperlipidemia Lipitor 20 mg daily at bedtime. Psychiatric 10 mg daily at bedtime -Chronic nicotine dependence nicotrol -Chronic treatment resistant schizophrenia with positive negative and likely cognitive impairment. Been followed by psychiatry Care was discussed with the nurse. Cutback Levemir to 66 units at night. Continue with every hour. Resume home does of Motrin and eyedrops.
[2021-12-15 06:42] LABS: Glucose,Whole Blood 73 mg/dL (75-99)
[2021-12-15 07:45] LABS: Glucose,Whole Blood 137 mg/dL (75-99)
[2021-12-15] MEDS: INSULIN REGULAR 100 UNIT/ML VIAL (IM/SQ) SQ SCH ×3 (08:37→17:47)
[2021-12-15] MEDS: DILTIAZEM CD 180 MG CAP.ER.24H PO SCH (08:39)
[2021-12-15] MEDS: SYMBICORT 80-4.5 MCG INHALER (MHU) INHALATION SCH ×2 (08:39→20:04)
[2021-12-15] MEDS: ASPIRIN 81 MG PO SCH (08:41)
[2021-12-15] MEDS: PREGABALIN 75 MG CAP PO SCH (08:42)
[2021-12-15] MEDS: PANTOPRAZOLE 40 MG TABLET PO SCH (08:42)
[2021-12-15] MEDS: METOPROLOL TARTRATE 50 MG TAB PO SCH ×2 (08:42→20:59)
[2021-12-15] MEDS: NYSTATIN 100,000UNIT/GM CREAM 30 GM TUBE TOPICAL SCH ×2 (08:42→20:04)
[2021-12-15] MEDS: ACETAMINOPHEN TAB 325 MG TAB PO PRN ×2 (08:44→15:50)
[2021-12-15 12:52] LABS: Glucose,Whole Blood 181 mg/dL (75-99)
--- NOTE | 2021-12-15 14:09 | P.PN ---
Progress Note - Text Progress Note Date: 12/15/21 Presenting complaint: Low sugar Hospital course: I'm rounding for Dr. Celio Friedman December 14: Patient in 3 W. Did eat some today. Accu-Cheks low this morning. Patient wants his home dose of Motrin and eyedrops systane. Has been rather sleepy. No chest pain. Breathing is stable. Oral intake has been fluctuating. December 15: Dose of Levemir cutback yesterday. Eating better. Sitting in the lounge. Breathing stable. Discussed with patient regarding his insulin. Active Medications Acetaminophen (Acetaminophen Tab 325 Mg Tab) 650 mg PO Q4HR PRN PRN Reason: Pain/Discomfort Last Admin: 12/15/21 08:44 Dose: 650 mg Documented by: Al Hydroxide/Mg Hydroxide (Mag Hydrox/Al Hydrox/Simeth 30 Ml Cup) 30 ml PO Q4HR PRN PRN Reason: GI Upset Albuterol Sulfate (Albuterol Inhaler 60 Puff/8 Gm Inhaler (u)) 2 puff INHALATION RT-Q6H PRN PRN Reason: Shortness Of Breath Last Admin: 12/14/21 08:57 Dose: 2 puff Documented by: Amantadine HCl (Amantadine Hcl 100 Mg Cap) 100 mg PO TID [facility] Last Admin: 12/15/21 08:40 Dose: 100 mg Documented by: Artificial Tears (Artificial Tears-Hypromellose Drops 15 Ml Btl) 2 drops BOTH EYES BID PRN PRN Reason: DRY EYES Aspirin (Aspirin 81 Mg) 81 mg PO DAILY [facility] Last Admin: 12/15/21 08:41 Dose: 81 mg Documented by: Atorvastatin Calcium (Atorvastatin 20 Mg Tab) 20 mg PO HS [facility] Last Admin: 12/14/21 20:40 Dose: Not Given Documented by: Budesonide/Formoterol Fumarate (Symbicort 80-4.5 Mcg Inhaler (u)) 2 puff INHALATION RT-BID [facility] Last Admin: 12/15/21 08:39 Dose: Not Given Documented by: Diltiazem HCl (Diltiazem Cd 180 Mg Cap.Er.24h) 360 mg PO DAILY [facility] Last Admin: 12/15/21 08:39 Dose: 360 mg Documented by: Diphenhydramine HCl (Diphenhydramine 25 Mg Cap) 50 mg PO QID PRN PRN Reason: Insomnia Diphenhydramine HCl (Diphenhydramine 50 Mg/Ml 1 Ml Vial) 50 mg IM QID PRN PRN Reason: Agitation or Acute Anxiety Divalproex Sodium (Divalproex Er 500 Mg Tab.Er.24h) 1,500 mg PO [facility] Last Admin: 12/14/21 20:40 Dose: 1,500 mg Documented by: Ezetimibe (Ezetimibe 10 Mg Tab) 10 mg PO [facility] Last Admin: 12/14/21 20:40 Dose: 10 mg Documented by: Hydrocortisone (Hydrocortisone 2.5% Rectal Cream 30 Gm Tube) 1 applic RECTAL QID PRN PRN Reason: Hemorrhoids Last Admin: 12/14/21 19:13 Dose: 1 applic Documented by: Ibuprofen (Ibuprofen 200 Mg Tab) 200 mg PO BID PRN PRN Reason: Pain Insulin Detemir (Insulin Detemir (Levemir) 100 Unit/Ml Syr) 66 unit SQ [facility] Last Admin: 12/14/21 20:43 Dose: 66 unit Documented by: Insulin Human Regular (Insulin Regular 100 Unit/Ml Vial (Im/Sq)) 10 unit SQ TID-W/MEALS [facility] Last Admin: 12/15/21 12:51 Dose: 10 unit Documented by: Lactic Acid (Ammonium Lactate 12% Lotion 225 Gm Btl) 1 applic TOPICAL BID PRN; Protocol PRN Reason: Dry Skin Lorazepam (Lorazepam 1 Mg Tab) 2 mg PO QID PRN PRN Reason: Agitation or Acute Anxiety Last Admin: 12/11/21 22:07 Dose: 2 mg Documented by: Lorazepam (Lorazepam 2 Mg/Ml Inj) 2 mg IM QID PRN PRN Reason: Agitation or Acute Anxiety Magnesium Hydroxide (Magnesium Hydroxide 2,400 Mg/10 Ml Cup) 2,400 mg PO DAILY PRN PRN Reason: Constipation Metoprolol Tartrate (Metoprolol Tartrate 50 Mg Tab) 50 mg PO BID [facility] Last Admin: 12/15/21 08:42 Dose: 50 mg Documented by: Nicotine Polacrilex (Nicotine Gum (Polacrilex) 2 Mg Gum) 2 mg BUCCAL Q2HR PRN PRN Reason: Nicotine Cravings Patient's Own ( Dulaglutide [ Trulicity] 1.5 Mg/0. 5 Ml Each) 1.5 mg SQ [facility] Last Admin: 12/09/21 12:12 Dose: Not Given Documented by: Nystatin (Nystatin 100,000unit/Gm Cream 30 Gm Tube) 1 applic TOPICAL BID [facility]; Protocol Last Admin: 12/15/21 08:42 Dose: Not Given Documented by: Pantoprazole Sodium (Pantoprazole 40 Mg Tablet) 40 mg PO DAILY [facility] Last Admin: 12/15/21 08:42 Dose: 40 mg Documented by: Pregabalin (Pregabalin 75 Mg Cap) 75 mg PO DAILY [facility] Last Admin: 12/15/21 08:42 Dose: 75 mg Documented by: Quetiapine Fumarate (Quetiapine 200 Mg Tab) 500 mg PO HS [facility] Last Admin: 12/14/21 20:41 Dose: 500 mg Documented by: On examination: VITAL SIGNS: 98.1, 75, 16, 109/68, 100% room air GENERAL APPEARANCE: Up in a chair, a bit tired appearing HEENT: Normal external appearance of nose and ear. Oral cavity normal EYES: Pupils equal. Conjunctiva normal. NECK: JVD not raised. Mass not palpable. RESPIRATORY: Respiratory effort normal. Lungs decreased breath sounds CARDIOVASCULAR: First and second sounds normal. No edema. ABDOMEN: Soft. Liver and spleen not palpable. No tenderness. No mass palpable. PSYCHIATRY: No anxiety. Answering questions appropriately Investigations: Accu-Cheks: 73, 137, 181 Assessment and plan: -Diabetes mellitus type 2, chronically on insulin. Uncontrolled with hypoglycemia. Decrease Levemir to 60 units subcu daily at bedtime. Continue with Humulin R. -COPD in a current smoker Symbicort 80/4.5 one puff twice a day Ventolin HFA when necessary -GERD Protonix 40 mg a day -Essential hypertension Lopressor 50 mg twice a day Cardizem CD 360 mg daily -Hyperlipidemia Lipitor 20 mg daily at bedtime. Psychiatric 10 mg daily at bedtime -Chronic nicotine dependence nicotrol -Chronic treatment resistant schizophrenia with positive negative and likely cognitive impairment. Been followed by psychiatry Care was discussed with the patient. Cutback Levemir to 60 units at night. Other medications to continue.
[2021-12-15 17:44] LABS: Glucose,Whole Blood 145 mg/dL (75-99)
--- NOTE | 2021-12-15 17:52 | P.PN ---
Subjective Progress Note Date: 12/15/21 Principal diagnosis: Progress note He was assessed following the court appearnce. I was not present for the court filing : Dr. Rizzo was sthe attending psychiatrist. I do not have access to the outcome ; however, he did not seem to be over-concerned over the result. He greeted me appropriately and did not have further negative reacton to the court appearnce. He recalled how police intervention resutls in his admission to the [facility] . He made reference to the Home condiiton and his percevied mis-match between the milieu and his schizophrenia. O; His thought process has not changed. He was tangential at times preoccupied with internal stimuli which he would not elaborate. He may be prepared to have a critical review of his Rx including clozapine and depot. Age-related cogntiive impairment may furthe complciate his resposne. memantine can be considered as an option to augment antipsychotics as well as to preventi further cognitive decline > He was well aware of his limitations and his poor adaptive style. A: Chronic schizoprhenia. iTreatment resistant with both positiive and negative symptoms npatient treatment for stabilization Plan ; dr Rizzo would resume his treatment plan recommendations as per [place] court protocol Objective - Vital Signs Vital signs: Vital Signs Temp 98.1 F 12/15/21 06:30 Pulse 75 12/15/21 06:30 Resp 16 12/15/21 06:30 BP 109/68 12/15/21 06:30 Pulse Ox 96 12/11/21 07:55 - Labs Labs: Abnormal Lab Results - Last 24 Hours (Table) 12/14/21 12/14/21 12/15/21 Range/Units 18:01 20:22 06:40 POC Glucose (mg/dL) 194 H 208 H 73 L (75-99) mg/dL 12/15/21 12/15/21 12/15/21 Range/Units 07:43 12:50 17:41 POC Glucose (mg/dL) 137 H 181 H 145 H (75-99) mg/dL
[2021-12-15] MEDS: ATORVASTATIN 20 MG TAB PO SCH (20:02)
[2021-12-15] MEDS: HYDROCORTISONE 2.5% RECTAL CREAM 30 GM TUBE RECTAL PRN (20:04)
[2021-12-15] MEDS: EZETIMIBE 10 MG TAB PO SCH (20:17)
[2021-12-15] MEDS: DIVALPROEX ER 500 MG TAB.ER.24H PO SCH (20:17)
[2021-12-15] MEDS: QUEtiapine 200 MG TAB PO SCH (20:17)
[2021-12-15] MEDS: INSULIN DETEMIR (LEVEMIR) 100 UNIT/ML SYR SQ SCH (20:35)
[2021-12-15 20:39] LABS: Glucose,Whole Blood 181 mg/dL (75-99)
[2021-12-16 07:59] LABS: Glucose,Whole Blood 122 mg/dL (75-99)
[2021-12-16] MEDS: METOPROLOL TARTRATE 50 MG TAB PO SCH ×2 (08:41→21:55)
[2021-12-16] MEDS: PANTOPRAZOLE 40 MG TABLET PO SCH (08:41)
[2021-12-16] MEDS: ASPIRIN 81 MG PO SCH (08:41)
[2021-12-16] MEDS: DILTIAZEM CD 180 MG CAP.ER.24H PO SCH (08:43)
[2021-12-16] MEDS: SYMBICORT 80-4.5 MCG INHALER (MHU) INHALATION SCH ×2 (08:44→22:10)
[2021-12-16] MEDS: INSULIN REGULAR 100 UNIT/ML VIAL (IM/SQ) SQ SCH ×3 (08:46→18:23)
[2021-12-16] MEDS: NYSTATIN 100,000UNIT/GM CREAM 30 GM TUBE TOPICAL SCH ×2 (08:49→22:47)
[2021-12-16] MEDS: PREGABALIN 75 MG CAP PO SCH (08:51)
[2021-12-16] MEDS: LORazepam 1 MG TAB PO PRN ×2 (09:26→18:26)
[2021-12-16 13:16] LABS: Glucose,Whole Blood 239 mg/dL (75-99)
[2021-12-16] MEDS: PATIENT'S OWN (Dulaglutide [Trulicity] 1.5 MG/0.5 ML Each) SQ SCH (13:52)
--- NOTE | 2021-12-16 15:20 | P.PN ---
Progress Note - Text Progress Note Date: 12/16/21 Clinical Problems: Schizoaffective disorder bipolar type, tobacco use disorder Interim history: I reviewed the medical record, interviewed the patient and discussed the treatment and treatment plan with the treatment team. I interviewed the patient and his room. He was pleasant on approach but his speech was grossly disorganized. His bed was covered a neatly stacks of paper. In addition, he had to paper bags filled with paper. Some of the papers were related to the probate hearing but most paper with large writing of unrelated statements. Overall, he stated that he is "doing better"because the Ativan has relieved his anxiety and decreased the tremor of his hands. His probate hearing was postponed yesterday because the petitioner did not present for the hearing. He does not attend therapeutic groups and activities. He only slept 4 hours last night and nursing staff notes that he had difficulty falling asleep. He is compliant with his prescribed psychotropic medications including amantadine, Depakote and Seroquel. Mental status exam: He presented as a casually groomed elderly male wearing a hospital gown. He ambulated with the assistance of a walker. He made intermittent eye contact and appeared to attend to the interview. He had a slight hand tremor. Her speech was spontaneous and slightly dysarthric. His affect was stable and appropriate. He did not express suicidal ideation, wishes or homicidal ideation. He did not expressed depressive cognitions such as hopelessness, helplessness or worthlessness. His thinking was grossly disorganized to the point where I was unable to fully evaluate whether he was expressing ideas of reference, paranoid ideation or delusions. He did not appear to be responding to internal stimuli. Assessment: Patient continues to meet the criteria for inpatient psychiatric admission for symptom stabilization and safety[default value] Plan: Continue inpatient treatment. Safety precautions. Coordinate hearing and charged to 12/22/2021. Continue current medications. Encourage participation in therapeutic groups and activities. Evaluate clinical status and response to treatment daily basis.
[2021-12-16 18:11] LABS: Glucose,Whole Blood 137 mg/dL (75-99)
[2021-12-16 21:46] LABS: Glucose,Whole Blood 171 mg/dL (75-99)
[2021-12-16] MEDS: DIVALPROEX ER 500 MG TAB.ER.24H PO SCH (21:54)
[2021-12-16] MEDS: QUEtiapine 200 MG TAB PO SCH (21:55)
[2021-12-16] MEDS: EZETIMIBE 10 MG TAB PO SCH (21:56)
[2021-12-16] MEDS: ATORVASTATIN 20 MG TAB PO SCH (22:10)
[2021-12-16] MEDS: INSULIN DETEMIR (LEVEMIR) 100 UNIT/ML SYR SQ SCH (22:11)
[2021-12-17 07:51] LABS: Glucose,Whole Blood 232 mg/dL (75-99)
[2021-12-17] MEDS: DILTIAZEM CD 180 MG CAP.ER.24H PO SCH (08:46)
[2021-12-17] MEDS: SYMBICORT 80-4.5 MCG INHALER (MHU) INHALATION SCH ×2 (08:46→21:29)
[2021-12-17] MEDS: INSULIN REGULAR 100 UNIT/ML VIAL (IM/SQ) SQ SCH ×3 (08:47→17:57)
[2021-12-17] MEDS: NYSTATIN 100,000UNIT/GM CREAM 30 GM TUBE TOPICAL SCH ×2 (08:48→21:00)
[2021-12-17] MEDS: HYDROCORTISONE 2.5% RECTAL CREAM 30 GM TUBE RECTAL PRN (08:48)
[2021-12-17] MEDS: PANTOPRAZOLE 40 MG TABLET PO SCH (08:50)
[2021-12-17] MEDS: ASPIRIN 81 MG PO SCH (08:50)
[2021-12-17] MEDS: LORazepam 1 MG TAB PO PRN ×2 (08:50→16:23)
[2021-12-17] MEDS: METOPROLOL TARTRATE 50 MG TAB PO SCH ×2 (08:50→20:16)
[2021-12-17] MEDS: ACETAMINOPHEN TAB 325 MG TAB PO PRN ×2 (08:50→19:44)
[2021-12-17] MEDS: PREGABALIN 75 MG CAP PO SCH (08:50)
[2021-12-17 12:47] LABS: Glucose,Whole Blood 316 mg/dL (75-99)
--- NOTE | 2021-12-17 15:26 | P.PN ---
Progress Note - Text Progress Note Date: 12/17/21 Clinical Problems: Schizoaffective disorder bipolar type, tobacco use disorder Interim history: I reviewed the medical record, interviewed the patient and discussed the treatment and treatment plan with the treatment team. I again interviewed Lucas in his room. He was pacing his room holding several pieces of paper in his hand. During the course of interview and made reference to other papers neatly arranged and stacks on his bed and on the floor. He perseverated about speaking with the charge and I suspect he is referring to the postponement probate hearing yesterday. He expressed fragmented concerns about his health. Due to the severity of his thinking disturbance was unable to obtain a comprehensive review of psychiatric symptoms. However he did not express suicidal ideation and did not appear to be responding to internal stimuli. Mental status exam: He presented as a casually groomed elderly male wearing a hospital gown. He ambulated with the assistance of a walker. He made intermittent eye contact and appeared to attend to the interview. He had a sli ght hand tremor. Her speech was spontaneous and slightly dysarthric. His affect was stable and appropriate. He did not express suicidal ideation, wishes or homicidal ideation. He did not expressed depressive cognitions such as hopelessness, helplessness or worthlessness. His thinking was grossly disorganized to the point where I was unable to fully evaluate whether he was expressing ideas of reference, paranoid ideation or delusions. He did not appear to be responding to internal stimuli Assessment: He remains markedly disorganized and psychotic. Patient continues to meet the criteria for inpatient psychiatric admission for symptom stabilization and safety Plan: Continue inpatient treatment. Safety precautions. Continue current psychotropic medications: Depakote ER 1500 mg at bedtime, and Seroquel 500 mg at bedtime. Encourage participation in therapeutic groups and activities. Evaluate clinical status and response to treatment daily basis. Probate hearing postponed until 12/22/2021.
[2021-12-17 17:47] LABS: Glucose,Whole Blood 223 mg/dL (75-99)
[2021-12-17 19:54] LABS: Glucose,Whole Blood 221 mg/dL (75-99)
[2021-12-17] MEDS: DIVALPROEX ER 500 MG TAB.ER.24H PO SCH (20:15)
[2021-12-17] MEDS: EZETIMIBE 10 MG TAB PO SCH (20:15)
[2021-12-17] MEDS: ATORVASTATIN 20 MG TAB PO SCH (20:15)
[2021-12-17] MEDS: QUEtiapine 200 MG TAB PO SCH (20:16)
[2021-12-17] MEDS: INSULIN DETEMIR (LEVEMIR) 100 UNIT/ML SYR SQ SCH (20:16)
[2021-12-18] MEDS: LORazepam 1 MG TAB PO PRN ×2 (06:02→20:36)
[2021-12-18 07:55] LABS: Glucose,Whole Blood 104 mg/dL (75-99)
[2021-12-18] MEDS: INSULIN REGULAR 100 UNIT/ML VIAL (IM/SQ) SQ SCH ×3 (08:27→17:32)
[2021-12-18] MEDS: ASPIRIN 81 MG PO SCH (08:29)
[2021-12-18] MEDS: PREGABALIN 75 MG CAP PO SCH (08:29)
[2021-12-18] MEDS: METOPROLOL TARTRATE 50 MG TAB PO SCH ×2 (08:29→20:29)
[2021-12-18] MEDS: PANTOPRAZOLE 40 MG TABLET PO SCH (08:29)
[2021-12-18] MEDS: DILTIAZEM CD 180 MG CAP.ER.24H PO SCH (08:30)
[2021-12-18] MEDS: SYMBICORT 80-4.5 MCG INHALER (MHU) INHALATION SCH ×2 (08:33→20:32)
[2021-12-18] MEDS: NYSTATIN 100,000UNIT/GM CREAM 30 GM TUBE TOPICAL SCH ×2 (08:33→20:31)
--- NOTE | 2021-12-18 11:17 | P.PN ---
Progress Note - Text Progress Note Date: 12/18/21 Interval History: Patient was seen in his room and was directable and agreeable to speak with sports book writer. He is laying in the bed with a mask on. His thinking was grossly disorganized to the point where I was unable to fully evaluate whether he was expressing ideas of reference, paranoid ideation or delusions. At this time patient denies any suicidal or homical ideations, intent or plan. Patient denies any auditory, visual hallucinations and denies any paranoia or delusions. Patient denies any side effects from the medications and has been compliant with meds. He has a posterior ideas and a poverty of thought content. Mental Status Exam: General Appearance: Patient appears to be stated age is alert, directable, and cooperative. Behavior: Patient is calmly seated without any agitated behavior. Speech: Patient's speech is fluent and nonpressured. Mood/Affect: Mood is improving mildly, affect is congruent and constricted. Suicidality/Homicidality: Patient denies having any suicidal or homicidal ideation intent or plan. Perceptions: Patient denies any visual hallucinations and denies any auditory hallucinations Though content/process: There is no evidence of any delusional thought content and thought process is linear and goal-directed. Memory and concentration: AOX3, grossly intact for the purposes of this session Judgment and insight: Improving mildly Assessment This patient continues to show severe symptomatology of psychosis necessitating continued hospitalization. Plan: -Patient continues to meet criteria for inpatient psychiatric admission for symptom stabilization and safety. -Medications: Continue medication as before. -When necessary Ativan and Haldol for agitation/aggression. -SW on board for discharge planning. Encouraged the patient to participate in milieu.
[2021-12-18 12:30] LABS: Glucose,Whole Blood 291 mg/dL (75-99)
[2021-12-18] MEDS: ACETAMINOPHEN TAB 325 MG TAB PO PRN (13:26)
[2021-12-18 17:35] LABS: Glucose,Whole Blood 193 mg/dL (75-99)
[2021-12-18 19:57] LABS: Glucose,Whole Blood 149 mg/dL (75-99)
[2021-12-18] MEDS: DIVALPROEX ER 500 MG TAB.ER.24H PO SCH (20:28)
[2021-12-18] MEDS: EZETIMIBE 10 MG TAB PO SCH (20:29)
[2021-12-18] MEDS: QUEtiapine 200 MG TAB PO SCH (20:30)
[2021-12-18] MEDS: INSULIN DETEMIR (LEVEMIR) 100 UNIT/ML SYR SQ SCH (20:31)
[2021-12-18] MEDS: ATORVASTATIN 20 MG TAB PO SCH (20:31)
[2021-12-19 07:47] LABS: Glucose,Whole Blood 209 mg/dL (75-99)
[2021-12-19] MEDS: SYMBICORT 80-4.5 MCG INHALER (MHU) INHALATION SCH ×2 (07:52→22:00)
[2021-12-19] MEDS: NYSTATIN 100,000UNIT/GM CREAM 30 GM TUBE TOPICAL SCH ×2 (07:53→22:00)
[2021-12-19] MEDS: PREGABALIN 75 MG CAP PO SCH (07:54)
[2021-12-19] MEDS: METOPROLOL TARTRATE 50 MG TAB PO SCH ×2 (07:54→20:27)
[2021-12-19] MEDS: ASPIRIN 81 MG PO SCH (07:54)
[2021-12-19] MEDS: DILTIAZEM CD 180 MG CAP.ER.24H PO SCH (07:55)
[2021-12-19] MEDS: PANTOPRAZOLE 40 MG TABLET PO SCH (07:55)
[2021-12-19] MEDS: INSULIN REGULAR 100 UNIT/ML VIAL (IM/SQ) SQ SCH ×3 (07:56→17:55)
[2021-12-19] MEDS: IBUPROFEN 200 MG TAB PO PRN ×2 (09:48→20:44)
--- NOTE | 2021-12-19 11:17 | P.PN ---
Progress Note - Text Progress Note Date: 12/19/21 Interval History: Patient was seen in his room and was directable and agreeable to speak with investment underwriter. Patient had papers scattered all over his room. He told me that there was nothing I could do because the 3 doctors prior to me he has not done anything for him. His ears are plugged with cotton and he stated that he did that because he does not want to hear bad noises.. At this time patient denies any suicidal or homical ideations, intent or plan. Patient denies any auditory, visual hallucinations and denies any paranoia or delusions. Patient denies any side effects from the medications and has been compliant with meds. Mental Status Exam: General Appearance: Patient appears to be stated age is alert, directable, and cooperative. Behavior: Patient is calmly seated without any agitated behavior. Speech: Patient's speech is fluent and nonpressured. Mood/Affect: Mood is improving mildly, affect is congruent and constricted. Suicidality/Homicidality: Patient denies having any suicidal or homicidal ideation intent or plan. Perceptions: Patient denies any visual hallucinations and denies any auditory hallucinations Though content/process: There is no evidence of any delusional thought content and thought process is linear and goal-directed. Memory and concentration: AOX3, grossly intact for the purposes of this session Judgment and insight: Improving mildly Assessment Patient continues to show severe psychotic symptomatology necessitating hosp italization. Plan: -Patient continues to meet criteria for inpatient psychiatric admission for symptom stabilization and safety. -Medications: Continue medication as before. -When necessary Ativan and Haldol for agitation/aggression. -SW on board for discharge planning. Encouraged the patient to participate in milieu.
[2021-12-19 12:47] LABS: Glucose,Whole Blood 303 mg/dL (75-99)
[2021-12-19] MEDS: LORazepam 1 MG TAB PO PRN (15:42)
[2021-12-19 17:51] LABS: Glucose,Whole Blood 148 mg/dL (75-99)
[2021-12-19 20:08] LABS: Glucose,Whole Blood 250 mg/dL (75-99)
[2021-12-19] MEDS: INSULIN DETEMIR (LEVEMIR) 100 UNIT/ML SYR SQ SCH (20:24)
[2021-12-19] MEDS: DIVALPROEX ER 500 MG TAB.ER.24H PO SCH (20:26)
[2021-12-19] MEDS: EZETIMIBE 10 MG TAB PO SCH (20:26)
[2021-12-19] MEDS: QUEtiapine 200 MG TAB PO SCH (20:27)
[2021-12-19] MEDS: AMMONIUM LACTATE 12% LOTION 225 GM BTL TOPICAL PRN (20:45)
[2021-12-19] MEDS: ATORVASTATIN 20 MG TAB PO SCH (22:00)
[2021-12-20 07:41] LABS: Glucose,Whole Blood 158 mg/dL (75-99)
[2021-12-20] MEDS: INSULIN REGULAR 100 UNIT/ML VIAL (IM/SQ) SQ SCH ×3 (07:42→17:43)
[2021-12-20] MEDS: ALBUTEROL INHALER 60 PUFF/8 GM INHALER (MHU) INHALATION PRN (07:43)
[2021-12-20] MEDS: PREGABALIN 75 MG CAP PO SCH (07:44)
[2021-12-20] MEDS: METOPROLOL TARTRATE 50 MG TAB PO SCH ×2 (07:44→20:13)
[2021-12-20] MEDS: ASPIRIN 81 MG PO SCH (07:44)
[2021-12-20] MEDS: PANTOPRAZOLE 40 MG TABLET PO SCH (07:44)
[2021-12-20] MEDS: DILTIAZEM CD 180 MG CAP.ER.24H PO SCH (07:45)
[2021-12-20] MEDS: NYSTATIN 100,000UNIT/GM CREAM 30 GM TUBE TOPICAL SCH ×3 (07:45→22:25)
[2021-12-20] MEDS: SYMBICORT 80-4.5 MCG INHALER (MHU) INHALATION SCH ×2 (08:54→20:10)
[2021-12-20] MEDS: IBUPROFEN 200 MG TAB PO PRN ×2 (09:41→15:59)
--- NOTE | 2021-12-20 10:48 | P.PN ---
Progress Note - Text Progress Note Date: 12/20/21 Interval History: Patient was seen laying in his bed today and was agreeable to speak to field underwriter. He continues to ramble and times however was more directable. He conitnues to be demanding and requesting more medical attention mainly for his hearing. He was fairly somatically preoccupied today. He spoke about not knowing where he will go upon discharge and wanted to speak to his gaurdian. He states that he is sleeping fairly well, no issues. He states that his appetite is fair. He claims that he has not been going to groups. He had multiple papers in his hand with disorganized writing mainly speakking about his hearing. He has poor insight and judgment which appears to be chronic. improving hygiene and grooming. At this time patient denies any suicidal or homical ideations, intent or plan. Patient denies any auditory, visual hallucinations and denies any paranoia or delusions. He claims that he has chronically been hearing music that hasbeen going on for several years and is not distressing to him. Patient denies any side effects from the medications and has been compliant with meds. Mental Status Exam: General Appearance: Patient appears to be elderly, stated age is alert, difficult to redirect. Patient appears to have improving hygiene and grooming. Behavior: Patient is seated without any agitated behavior. less hostile with field underwriter. less paranoid Speech: Patient's speech is rambles, tangential. Mood/Affect: Patient reports their mood is "a bit better", affect is incongruent and constricted. Suicidality/Homicidality: Patient denies having any homicidal ideation intent or plan. Denies any suicidal ideations intent or plan Perceptions: Patient denies any visual hallucinations and denies any auditory hallucinations. chronically hears music, non distressing. Though content/process: Rambles, tangential/circumstantial. Paranoia, improving mildly Memory and concentration: AOX3, grossly intact for the purposes of this session. Judgment and insight: Chronically poor, improving mildly IMPRESSIONS: Schizoaffective disorder, bipolar type Nicotine dependence Plan: -Patient continues to meet criteria for inpatient psychiatric admission for symptom stabilization and safety. Patient has not signed adult voluntary form and medication consent and was placed in patient's chart. -Medications: continue with Seroquel 500 mg daily at bedtime for mood stabilization/psychosis. Continue Depakote 1500 mg daily at bedtime for mood stabilization. Continue with amantadine 100 mg 3 times a day. start lamictal 25 mg bid for mood stabilization/depression. benadryl prn for insomnia. -When necessary Ativan for agitation/aggression. -NRT - nicotine patch -SW on board for discharge planning. Encouraged the patient to participate in milieu. court hearing on 12/22.
[2021-12-20] MEDS: lamoTRIgine 25 MG TAB PO SCH ×3 (11:41→20:13)
[2021-12-20 12:38] VITALS: BMI 25.7
[2021-12-20 12:48] LABS: Glucose,Whole Blood 166 mg/dL (75-99)
[2021-12-20 16:59] LABS: Glucose,Whole Blood 163 mg/dL (75-99)
[2021-12-20 17:46] LABS: Glucose,Whole Blood 133 mg/dL (75-99)
[2021-12-20 19:59] LABS: Glucose,Whole Blood 222 mg/dL (75-99)
[2021-12-20] MEDS: ATORVASTATIN 20 MG TAB PO SCH ×2 (20:10→20:14)
[2021-12-20] MEDS: DIVALPROEX ER 500 MG TAB.ER.24H PO SCH (20:13)
[2021-12-20] MEDS: QUEtiapine 200 MG TAB PO SCH (20:13)
[2021-12-20] MEDS: EZETIMIBE 10 MG TAB PO SCH (20:13)
[2021-12-20] MEDS: INSULIN DETEMIR (LEVEMIR) 100 UNIT/ML SYR SQ SCH (20:29)
[2021-12-20] MEDS: HYDROCORTISONE 2.5% RECTAL CREAM 30 GM TUBE RECTAL PRN (22:25)
[2021-12-20] MEDS: AMMONIUM LACTATE 12% LOTION 225 GM BTL TOPICAL PRN (22:26)
[2021-12-21] MEDS: ACETAMINOPHEN TAB 325 MG TAB PO PRN ×2 (02:05→11:47)
[2021-12-21 02:27] LABS: Glucose,Whole Blood 64 mg/dL (75-99)
[2021-12-21 02:51] LABS: Glucose,Whole Blood 108 mg/dL (75-99)
[2021-12-21] MEDS: INSULIN REGULAR 100 UNIT/ML VIAL (IM/SQ) SQ SCH ×3 (08:07→18:50)
[2021-12-21 08:18] LABS: Glucose,Whole Blood 134 mg/dL (75-99)
[2021-12-21] MEDS: ALBUTEROL INHALER 60 PUFF/8 GM INHALER (MHU) INHALATION PRN (08:32)
[2021-12-21] MEDS: DILTIAZEM CD 180 MG CAP.ER.24H PO SCH (08:34)
[2021-12-21] MEDS: PANTOPRAZOLE 40 MG TABLET PO SCH (08:34)
[2021-12-21] MEDS: PREGABALIN 75 MG CAP PO SCH (08:34)
[2021-12-21] MEDS: METOPROLOL TARTRATE 50 MG TAB PO SCH ×2 (08:34→21:03)
[2021-12-21] MEDS: ASPIRIN 81 MG PO SCH (08:34)
[2021-12-21] MEDS: lamoTRIgine 25 MG TAB PO SCH ×2 (08:34→21:03)
[2021-12-21] MEDS: NYSTATIN 100,000UNIT/GM CREAM 30 GM TUBE TOPICAL SCH ×2 (09:04→21:04)
[2021-12-21] MEDS: SYMBICORT 80-4.5 MCG INHALER (MHU) INHALATION SCH ×2 (09:04→21:02)
[2021-12-21] MEDS: LORazepam 1 MG TAB PO PRN (11:46)
[2021-12-21 12:44] LABS: Glucose,Whole Blood 200 mg/dL (75-99)
--- NOTE | 2021-12-21 12:56 | P.PN ---
Progress Note - Text Progress Note Date: 12/21/21 Interval History: Patient was seen laying in his bed today and was agreeable to speak to lead technical writer. At first patient was appearing to be fairly calm and cooperative with lead technical writer. We spoke briefly in the office today about his medications. He appears to be rambling a little colostomy and has more improvement in his impulsivity. He continues to display fairly chronically poor insight and judgment. She was complaining of having a history of different rashes and claims that he does not want to take the Lamictal because she states that he does not know any information about it. Customer Project Manager attempted to reassure patient that we will be monitoring for any new rashes and having a history of a rash does not exclude him from taking the medications. He became upset at lead technical writer and left the room. At this time patient denies any suicidal or homical ideations, intent or plan. Patient denies any auditory, visual hallucinations. He claims that he has chronically been hearing music that hasbeen going on for several years and is not distressing to him. Mental Status Exam: General Appearance: Patient appears to be elderly, stated age is alert, difficult to redirect, improving mildly. Patient appears to have improving hygiene and grooming. Behavior: Patient is seated without any agitated behavior. less hostile with lead technical writer. less paranoid Speech: Patient's speech is rambles, tangential, improving Mood/Affect: Patient reports their mood is "better", affect is incongruent and constricted. Suicidality/Homicidality: Patient denies having any homicidal ideation intent or plan. Denies any suicidal ideations intent or plan Perceptions: Patient denies any visual hallucinations and denies any auditory hallucinations. chronically hears music, non distressing. Though content/process: Rambles, tangential/circumstantial. Not endorsing any delusions. Preoccupied with his medications. Memory and concentration: AOX3, grossly intact for the purposes of this session. Judgment and insight: Chronically poor, improving mildly IMPRESSIONS: Schizoaffective disorder, bipolar type Nicotine dependence Plan: -Patient continues to meet criteria for inpatient psychiatric admission for symptom stabilization and safety. Patient has not signed adult voluntary form and medication consent and was placed in patient's chart. -Medications: Increased Seroquel 600 mg daily at bedtime for mood stabilization/psychosis. Continue Depakote 1500 mg daily at bedtime for mood stabilization. Continue with amantadine 100 mg 3 times a day. start lamictal 25 mg bid for mood stabilization/depression. Benadryl prn for insomnia. -When necessary Ativan for agitation/aggression. -NRT - nicotine patch -SW on board for discharge planning. Encouraged the patient to participate in milieu. court hearing on 12/22. Likely discharge back to [facility]
[2021-12-21 17:42] LABS: Glucose,Whole Blood 232 mg/dL (75-99)
[2021-12-21 20:05] LABS: Glucose,Whole Blood 311 mg/dL (75-99)
[2021-12-21] MEDS: DIVALPROEX ER 500 MG TAB.ER.24H PO SCH (21:00)
[2021-12-21] MEDS: INSULIN DETEMIR (LEVEMIR) 100 UNIT/ML SYR SQ SCH (21:02)
[2021-12-21] MEDS: EZETIMIBE 10 MG TAB PO SCH (21:02)
[2021-12-21] MEDS: QUEtiapine 200 MG TAB PO SCH (21:04)
[2021-12-21] MEDS: HYDROCORTISONE 2.5% RECTAL CREAM 30 GM TUBE RECTAL PRN (21:05)
[2021-12-22 08:11] LABS: Glucose,Whole Blood 151 mg/dL (75-99)
[2021-12-22] MEDS: INSULIN REGULAR 100 UNIT/ML VIAL (IM/SQ) SQ SCH ×3 (08:23→17:42)
[2021-12-22] MEDS: PREGABALIN 75 MG CAP PO SCH (08:24)
[2021-12-22] MEDS: PANTOPRAZOLE 40 MG TABLET PO SCH (08:24)
[2021-12-22] MEDS: METOPROLOL TARTRATE 50 MG TAB PO SCH ×2 (08:24→19:57)
[2021-12-22] MEDS: ASPIRIN 81 MG PO SCH (08:24)
[2021-12-22] MEDS: DILTIAZEM CD 180 MG CAP.ER.24H PO SCH (08:24)
[2021-12-22] MEDS: lamoTRIgine 25 MG TAB PO SCH ×2 (08:24→19:57)
[2021-12-22] MEDS: SYMBICORT 80-4.5 MCG INHALER (MHU) INHALATION SCH ×2 (08:25→20:05)
[2021-12-22] MEDS: NYSTATIN 100,000UNIT/GM CREAM 30 GM TUBE TOPICAL SCH ×2 (08:25→20:01)
[2021-12-22] MEDS: ACETAMINOPHEN TAB 325 MG TAB PO PRN ×3 (10:55→20:42)
[2021-12-22] MEDS: LORazepam 1 MG TAB PO PRN ×2 (10:55→20:42)
--- NOTE | 2021-12-22 11:37 | P.PN ---
Progress Note - Text Progress Note Date: 12/22/21 Interval History: Patient was seen sitting at the side of his bed today after his court hearing. Lead Oxide Mill Tender knock on the door and entered his room to speak with patient. Patient immediately got up and began swearing at investment underwriter and was fairly hostile and aggressive. He states that "you lied to the operations management trainee about me" and had papers in his hand and slammed them against the bed and pointed out investment underwriter and told him to "get the fuck outa here! Im not talking to you". Mental Status Exam: General Appearance: Patient appears to be elderly, stated age is alert, difficult to redirect, hostile and demanding. Patient appears to have improving hygiene and grooming. Behavior: Patient is seated without any agitated behavior. Aggressive, hostile. Speech: Patient's speech is rambles, tangential Mood/Affect: Unable to assess Suicidality/Homicidality: Unable to assess Perceptions: Unable to assess Though content/process: Unable to assess Memory and concentration: Unable to assess Judgment and insight: Chronically poor IMPRESSIONS: Schizoaffective disorder, bipolar type Nicotine dependence Plan: -Patient continues to meet criteria for inpatient psychiatric admission for symptom stabilization and safety. Patient has not signed adult voluntary form and medication consent and was placed in patient's chart. -Medications: Seroquel 600 mg daily at bedtime for mood stabilization/psychosis. Continue Depakote 1500 mg daily at bedtime for mood stabilization. Continue with amantadine 100 mg 3 times a day. increase lamictal 50 mg bid for mood stabilization/depression. Benadryl prn for insomnia. -When necessary Ativan for agitation/aggression. -NRT - nicotine patch - on board for discharge planning. Encouraged the patient to participate in milieu. court hearing on 11/[address] order. Likely discharge tomorrow-monday back to [place].
[2021-12-22 12:48] LABS: Glucose,Whole Blood 214 mg/dL (75-99)
[2021-12-22 17:40] LABS: Glucose,Whole Blood 198 mg/dL (75-99)
[2021-12-22 19:44] LABS: Glucose,Whole Blood 223 mg/dL (75-99)
[2021-12-22] MEDS: DIVALPROEX ER 500 MG TAB.ER.24H PO SCH (19:56)
[2021-12-22] MEDS: ATORVASTATIN 20 MG TAB PO SCH (19:57)
[2021-12-22] MEDS: QUEtiapine 200 MG TAB PO SCH (19:57)
[2021-12-22] MEDS: EZETIMIBE 10 MG TAB PO SCH (19:58)
[2021-12-22] MEDS: INSULIN DETEMIR (LEVEMIR) 100 UNIT/ML SYR SQ SCH (20:03)
[2021-12-23 07:18] VITALS: BP 114/55; PULSE 54; RESP 16; TEMP 97.3
[2021-12-23] MEDS: IBUPROFEN 200 MG TAB PO PRN (07:22)
[2021-12-23 08:14] LABS: Glucose,Whole Blood 85 mg/dL (75-99)
[2021-12-23] MEDS: PREGABALIN 75 MG CAP PO SCH (08:50)
[2021-12-23] MEDS: PANTOPRAZOLE 40 MG TABLET PO SCH (08:50)
[2021-12-23] MEDS: DILTIAZEM CD 180 MG CAP.ER.24H PO SCH (08:51)
[2021-12-23] MEDS: lamoTRIgine 25 MG TAB PO SCH (08:51)
[2021-12-23] MEDS: METOPROLOL TARTRATE 50 MG TAB PO SCH (08:52)
[2021-12-23] MEDS: ASPIRIN 81 MG PO SCH (08:52)
[2021-12-23] MEDS: ALBUTEROL INHALER 60 PUFF/8 GM INHALER (MHU) INHALATION PRN (08:53)
[2021-12-23] MEDS: SYMBICORT 80-4.5 MCG INHALER (MHU) INHALATION SCH (08:53)
[2021-12-23] MEDS: NYSTATIN 100,000UNIT/GM CREAM 30 GM TUBE TOPICAL SCH (09:02)
[2021-12-23] MEDS: INSULIN REGULAR 100 UNIT/ML VIAL (IM/SQ) SQ SCH (09:02)
[2021-12-23] MEDS ORDERED: lamoTRIgine 100 MG TAB PO SCH (10:30)
--- NOTE | 2021-12-23 11:09 | P.DS ---
Providers Date of admission: 12/08/21 18:21 Expected date of discharge: 12/23/21 Attending physician: Celio Crowell MD Consults: 12/08/21 19:03 Consult Physician Routine Consulting Provider: Celio Friedman Consult Reason/Comments: history and physical/medical management Do you want consulting provider notified?: Yes Primary care physician: Celio Friedman - Discharge Diagnosis(es) (1) Schizoaffective disorder, bipolar type Current Visit: Yes Status: Acute Priority: High (2) Nicotine dependence Current Visit: Yes Status: Acute Priority: Low Hospital Course: Admission HPI: Admission note was completed by designer writer "Patient is a 56-year-old male with history of schizoaffective disorder who currently lives at [facility] and has a guardian. Patient presented to the hospital on a petition and certificate. According to the petition states that patient he is in a "manic state" and also alluded to people were out to harm him. He saw officer also stated on the petition that patient made threats to kill staff and believe that they're following to kill him. Patient has a history of schizoaffective disorder and last psychiatrically hospitalized in 2017. Patient was seen today in his room and agreeable to speech pathology assistant. He appeared to have poor hygiene and grooming. Patient was difficult to redirect during conversation and was illogical, rambling and tangential. He had loose associations as well. He was endorsing paranoia and had a stack of papers and talk about the police setting him up and plotting against him. Patient continued to ramble on about "bad stuff going on". He accuses designer writer several times of "not being up to the task to handle this case" and repeatedly told designer writer in eastern voice that "your fired I want a new doctor". He was very demanding. He claims that he hears auditory hallucinations of "singing and music". He adamantly claims that he is taking his medications. He denies any suicidal or homicidal ideations intent or plan. He claims that his sleep is fair. Patient denies using any recreational drugs however does claim that he smokes cigarettes. Patient has poor impulse control and does present paranoid. Patient became more paranoid and verbally aggressive with designer writer and left the room and refused to answer further questions." Hospital course: Upon admission to the unit patient was admitted involuntarily on a petition and certificate and a second certificate was completed and faxed with the courts. Patient ended up going through the court process and having a full court hearing and ended up receiving a court order for mental treatment. Patient was mainly isolative on the unit and directable. Patient was compliant with most of the medications and denied any side effects throughout hospital course. Patient was started on Seroquel and increased her dose of 600 mg daily at bedtime for mood stabilization/psychosis. Patient was also restarted back on his home dose of Depakote 1500 mg daily at bedtime for mood stabilization, restarted on amantadine 100 mg 3 times a day, he was started on Lamictal and titrate up the dose of 100 mg daily for mood stabilization/depression. Patient spoke of his stressors however did not attend many groups. Patient was also seen by medical team for history and physical exam. Throughout the course of the hospitalization patient gradually improved with regards to mood, anxiety, sleep and returned back to their baseline level of functioning. On the day of discharge patient denied any suicidal or homicidal ideations intent or plan denied any auditory or visual hallucinations. Patient endorsed wanting to live for his health and his future. The patient denied any access to guns or weapons. Patient denied any paranoia and did not endorse any delusions. Patient does not have a significant history of substance abuse however was counseled on abstaining from all substances including alcohol and marijuana. Patient was also counseled on the medications and need for regular compliance and was encouraged to follow-up with their outpatient appointment for mental health and also for primary care. Prior to discharge, administrator social welfare and [facility] liaison will help coordinate patient's discharge back to [facility]. Mental status exam: General Appearance: Patient appears to be tall, stated age is alert, directable. Patient is in no acute distress and has improved hygiene and grooming Behavior: Patient is calmly seated without any agitated behavior. Speech: Patient's speech is fluent and nonpressured. Mood/Affect: Patient reports their mood is "ok", affect is congruent Suicidality/Homicidality: Patient denies having any suicidal or homicidal ideation intent or plan. Perceptions: Patient denies any auditory or visual hallucinations. Though content/process: There is no evidence of any delusional thought content and thought process is linear and goal-directed. Memory and concentration: AOX3, grossly intact for the purposes of this session. Can spell "WORLD" backwards correctly. Judgment and insight: chronically poor, however has improved with guarded prognosis Impression: Schizoaffective disorder, bipolar type Nicotine dependence Plan: -Continue with discharge today as patient has improved and stabilized psychiatrically and is not currently an imminent threat to himself and/or others. Patient will remain at chronically elevated risk for harm to self and/or others due to his impulsivity and chronically poor insight and judgment. -Continue medications: Seroquel 600 mg daily at bedtime for mood stabilization/psychosis, Depakote 1500 mg daily at bedtime for mood stabilization, amantadine 100 mg 3 times a day, Lamictal 100 mg daily at bedtime for mood stabilization/depression. -Patient was counseled on the need for medication compliance and appropriate follow-up at mental health and also primary care for medical issues. Patient verbalized understanding and agreed. -Social work to help coordinate discharge today to [facility]. Social work also to arrange for patients follow up appointments with [facility] for psychiatric care along with follow up with primary care provider. -Patient counseled on abstaining from recreational drugs and marijuana and alcohol. Was informed/educated on the adverse effects on their physical and mental health. Patient verbally agreed and understood. -Patient was instructed to return to the hospital or seek immediate medical care if their psychiatric or medical symptoms do worsen or reoccur. Allergies Allergy/AdvReac Type Severity Reaction Status Date / Time amlodipine Allergy Unknown Verified 12/12/21 12:32 aripiprazole [From Abilify] Allergy Unknown Verified 12/12/21 12:32 atorvastatin [From Lipitor] Allergy Unknown Verified 12/12/21 12:32 benztropine [From Cogentin] Allergy Unknown Verified 12/12/21 12:32 chlorpromazine Allergy Unknown Verified 12/12/21 12:32 [From Thorazine] fluphenazine [From Prolixin] Allergy Unknown Verified 12/12/21 12:32 gabapentin Allergy Unknown Verified 12/12/21 12:32 haloperidol [From Haldol] Allergy Unknown Verified 12/12/21 12:32 insulin glargine Allergy Unknown Verified 12/12/21 12:32 [From Lantus] metformin Allergy Unknown Verified 12/12/21 12:32 olanzapine [From Zyprexa] Allergy Unknown Verified 12/12/21 12:32 paliperidone [From Invega] Allergy Unknown Verified 12/12/21 12:32 thiothixene Allergy Unknown Verified 12/12/21 12:32 ziprasidone [From Geodon] Allergy Unknown Verified 12/12/21 12:32 ABILIFY INJECTION Allergy Unknown Uncoded 12/12/21 12:32 INVEGA INJECTION Allergy Unknown Uncoded 12/12/21 12:32 Laboratory Results POC Glucose (mg/dL) 85 mg/dL (75-99) 12/23/21 08:02 POC Glu Director Of Safety ID Hailey Harris 12/23/21 08:[address] Glu mg/dL 184 12/09/21 07:29 Hemoglobin A1c 8.0 % (0.0-6.0) H 12/09/21 07:29 Triglycerides 122.00 mg/dL (0.00-149.00) 12/09/21 07:29 Cholesterol 120.00 mg/dL (0.00-200.00) 12/09/21 07:29 LDL Cholesterol, Calc 61.4 mg/dL (0.0-131.0) 12/09/21 07:29 VLDL Cholesterol, Calc 24.40 mg/dL (5.00-40.00) 12/09/21 07:29 HDL Cholesterol 34.20 mg/dL (40.00-60.00) L 12/09/21 07:29 Cholesterol/HDL Ratio 3.51 Ratio 12/09/21 07:29 TSH 0.962 mIU/L (0.465-4.680) 12/09/21 07:29 Valproic Acid 80.2 ug/mL 12/10/21 07:48 Vital Signs Temp 97.3 F L 12/23/21 06:55 Pulse 54 L 12/23/21 06:55 Resp 16 12/23/21 06:55 BP 114/55 12/23/21 06:55 Pulse Ox 95 12/22/21 06:59 Patient Condition at Discharge: Stable Plan - Discharge Summary Discharge Rx Participant: No New Discharge Prescriptions: New Ibuprofen [Advil] 200 mg PO BID PRN tab PRN Reason: Pain lamoTRIgine [LaMICtal] 100 mg PO HS 30 Days tab Insulin Detemir (Levemir) [Levemir] 60 unit SQ HS 30 Days ml Artificial Tears-Hypromellose [Artificial Tear Drops] 2 drops BOTH EYES BID PRN 30 Days ml PRN Reason: DRY EYES Insulin Regular [HumuLIN R] 10 unit SQ TID-W/MEALS 30 Days ml Ammonium Lactate Lotion [Lac-Hydrin 12% Lotion] 1 applic TOPICAL BID PRN #1 PRN Reason: Dry Skin QUEtiapine [SEROquel] 600 mg PO HS 30 Days tab Continue Pregabalin [Lyrica] 75 mg PO DAILY Acetaminophen [Tylenol Arthritis] 650 mg PO Q8H PRN PRN Reason: Pain Ergocalciferol [Vitamin D2 (1250 Mcg = 22508 Iu)] 1,250 mcg PO TH Carbamide Peroxide [Debrox Otic] 4 drops BOTH EARS BID PRN PRN Reason: wax Fluticasone/Salmeterol [Advair 250-50 Diskus] 1 puff INHALATION RT-BID 1 Days each Hydrocortisone [Anusol-Hc] 1 applic RECTAL QID PRN #1 each PRN Reason: Hemorrhoids Diltiazem Cd [Cardizem CD] 120 mg PO DAILY 30 Days cap Divalproex ER [Depakote ER] 1,500 mg PO HS 30 Days tab Aspirin EC [Ecotrin Low Dose] 81 mg PO DAILY 30 Days tab Nystatin 100,000Unit/gm Cream [Mycostatin Cream] 1 applic TOPICAL BID 30 Days each Omeprazole 20 mg PO DAILY 30 Days cap Albuterol Sulfate [Ventolin HFA] 1 - 2 puff INHALATION RT-Q6H PRN #1 each PRN Reason: Shortness Of Breath Ezetimibe [Zetia] 10 mg PO HS 30 Days tab Atorvastatin [Lipitor] 20 mg PO HS 30 Days tab Metoprolol Tartrate [Lopressor] 50 mg PO BID 30 Days tab amantadine HCL [Symmetrel] 100 mg PO TID 30 Days cap Discontinued QUEtiapine FUMARATE [Seroquel Xr] 800 mg PO HS@2100 LORazepam [Ativan] 1 mg PO HS Diltiazem Cd [Cardizem CD] 240 mg PO DAILY Propylene Glycol/Peg 400/Pf [Systane 0.3-0.4% Eye Drops] 1 - 2 drop BOTH EYES BID PRN PRN Reason: DRY EYES Prochlorperazine [Compazine] 10 mg PO Q8H PRN PRN Reason: Nausea And Vomiting Magnesium Hydroxide [Milk of Magnesia] 2,400 mg PO DAILY PRN PRN Reason: Constipation Meclizine [Antivert] 12.5 mg PO BID PRN PRN Reason: Dizziness Ibuprofen [Motrin Ib] 200 - 400 mg PO Q4-6H PRN PRN Reason: Fever And/ Or Pain Glucosam/Mustapha-Msm1/C/Kavon/Bosw [Glucosamine-Chondroitin Tablet] 1 tab PO HS Loratadine [Claritin] 10 mg PO HS PRN PRN Reason: Allergy Symptoms [place]-3 Acid Ethyl Esters [Lovaza] 1 gm PO BID guaiFENesin [guaiFENesin Oral Solution] 200 mg PO Q6H PRN PRN Reason: Cough Ammonium Lactate Lotion [Lac-Hydrin 12% Lotion] 1 applic TOPICAL BID PRN PRN Reason: Dry Skin Insulin Regular, Human [Novolin R Flexpen] 7 units SQ ACHS Dextrose/Dextrin/Maltose [Insta-Glucose Gel] 31 gm PO DAILY PRN PRN Reason: BS<60 Mag Hydrox/Aluminum Hyd/Simeth [Mylanta Maximum Strength Liq] 15 ml PO QID PRN PRN Reason: Indigestion LORazepam [Ativan] 0.5 mg PO DAILY PRN PRN Reason: acute anxiety Insulin Detemir [Levemir Flextouch Pen] 80 units SQ HS Acetaminophen Tab [Tylenol Tab] 500 mg PO BID PRN PRN Reason: Fever And/ Or Pain Ondansetron [Zofran] 4 mg PO DAILY PRN PRN Reason: Nausea And Vomiting Insulin Regular, Human [Novolin R Flexpen] See Protocol SQ ACHS Dulaglutide [Trulicity] 1.5 mg SQ TH Discharge Medication List Pregabalin [Lyrica] 75 mg PO DAILY 04/20/18 [History] Acetaminophen [Tylenol Arthritis] 650 mg PO Q8H PRN 12/02/19 [History] Carbamide Peroxide [Debrox Otic] 4 drops BOTH EARS BID PRN 12/08/21 [History] Ergocalciferol [Vitamin D2 (1250 Mcg = 95205 Iu)] 1,250 mcg PO TH 12/08/21 [History] Albuterol Sulfate [Ventolin HFA] 1 - 2 puff INHALATION RT-Q6H PRN #1 each 12/23/21 [Rx] Ammonium Lactate Lotion [Lac-Hydrin 12% Lotion] 1 applic TOPICAL BID PRN #1 12/23/21 [Rx] Artificial Tears-Hypromellose [Artificial Tear Drops] 2 drops BOTH EYES BID PRN 30 Days ml 12/23/21 [Rx] Aspirin EC [Ecotrin Low Dose] 81 mg PO DAILY 30 Days tab 12/23/21 [Rx] Atorvastatin [Lipitor] 20 mg PO HS 30 Days tab 12/23/21 [Rx] Diltiazem Cd [Cardizem CD] 120 mg PO DAILY 30 Days cap 12/23/21 [Rx] Divalproex ER [Depakote ER] 1,500 mg PO HS 30 Days tab 12/23/21 [Rx] Ezetimibe [Zetia] 10 mg PO HS 30 Days tab 12/23/21 [Rx] Fluticasone/Salmeterol [Advair 250-50 Diskus] 1 puff INHALATION RT-BID 1 Days each 12/23/21 [Rx] Hydrocortisone [Anusol-Hc] 1 applic RECTAL QID PRN #1 each 12/23/21 [Rx] Ibuprofen [Advil] 200 mg PO BID PRN tab 12/23/21 [Rx] Insulin Detemir (Levemir) [Levemir] 60 unit SQ HS 30 Days ml 12/23/21 [Rx] Insulin Regular [HumuLIN R] 10 unit SQ TID-W/MEALS 30 Days ml 12/23/21 [Rx] Metoprolol Tartrate [Lopressor] 50 mg PO BID 30 Days tab 12/23/21 [Rx] Nystatin 100,000Unit/gm Cream [Mycostatin Cream] 1 applic TOPICAL BID 30 Days each 12/23/21 [Rx] Omeprazole 20 mg PO DAILY 30 Days cap 12/23/21 [Rx] QUEtiapine [SEROquel] 600 mg PO HS 30 Days tab 12/23/21 [Rx] amantadine HCL [Symmetrel] 100 mg PO TID 30 Days cap 12/23/21 [Rx] lamoTRIgine [LaMICtal] 100 mg PO HS 30 Days tab 12/23/21 [Rx] Activity/Diet/Wound Care/Special Instructions: Activity and diet as tolerated. Avoid the use of street drugs and alcohol. Take all medications as prescribed. When you are in need of refills on your medications please contact your medical provider and/or outpatient psychiatrist to have this done. Please go to scheduled outpatient appointment for aftercare treatment. If symptoms return or become worse, call the crisis line at and/or go to the nearest emergency room for evaluation Discharge Disposition: OTHER INSTITUTION NOT DEFINED
== END 2021-12-23 11:44 | DRG 885 ==
LOC: 3MHU 18:21
PROVIDERS: ADMIT Psychiatry & Neurology Psychiatry; ATTEND Psychiatry & Neurology Psychiatry
DX: F25.0 Schizoaffective disorder, bipolar type (principal); F30.9 Manic episode, unspecified; F41.9 Anxiety disorder, unspecified; G47.00 Insomnia, unspecified; I10 Essential (primary) hypertension; J44.9 Chronic obstructive pulmonary disease, unspecified; K21.9 Gastro-esophageal reflux disease without esophagitis; K59.00 Constipation, unspecified; K64.9 Unspecified hemorrhoids; E11.65 Type 2 diabetes mellitus with hyperglycemia; Z79.4 Long term (current) use of insulin; E78.5 Hyperlipidemia, unspecified; F17.210 Nicotine dependence, cigarettes, uncomplicated; Z79.51 Long term (current) use of inhaled steroids; Z79.82 Long term (current) use of aspirin; Z79.899 Other long term (current) drug therapy; Z88.8 Allergy status to other drugs, medicaments and biological substances; Z71.89 Other specified counseling
CPT/HCPCS: 80061; 80164; 83036; 84443

== ENCOUNTER 2023-03-28 17:53 | Emergency (ER) | payer MEDICAID, MEDICARE, OTHER ==
[2023-03-28 18:01] VITALS: TEMP 98.1
[2023-03-28 18:03] LABS: Glucose,Whole Blood 378 mg/dL (70-110)
--- NOTE | 2023-03-28 18:06 | ED ---
Recheck HPI - General Chief Complaint: Recheck/Abnormal Lab/Rx Stated Complaint: hyperglycemia Time Seen by Provider: 03/28/23 18:05 Source: EMS Mode of arrival: EMS - History of Present Illness Initial Comments: Patient is a 58-year-old male with long history of insulin-dependent diabetes who presents the emergency department today for evaluation of hyperglycemia. Patient reports he skipped his typical oatmeal for breakfast therefore he was eating extra junk throughout the day. He states he hasn't been following a good diabetic diet lately. Patient's glucose was checked at his facility and noted to be over 500 he was treated with 27 units of insulin and then turns her to hospital for evaluation. Patient has no acute complaints he reports he's been eating and drinking fine no nausea no vomiting no recent illness. Patient reports chronic pain in his feet due to diabetic neuropathy but no change in that condition. - Related Data Home Medications Medication Instructions Recorded Confirmed Pregabalin [Lyrica] 75 mg PO DAILY 04/20/18 12/12/21 Acetaminophen [Tylenol Arthritis] 650 mg PO Q8H PRN 12/02/19 12/12/21 Carbamide Peroxide [Debrox Otic] 4 drops BOTH EARS BID PRN 12/08/21 12/12/21 Ergocalciferol [Vitamin D2 (1250 1,250 mcg PO TH 12/08/21 12/12/21 Mcg = [id number] Iu)] Previous Rx's Medication Instructions Recorded Albuterol Sulfate [Ventolin HFA] 1 - 2 puff INHALATION RT-Q6H PRN 12/23/21 #1 each Ammonium Lactate Lotion 1 applic TOPICAL BID PRN #1 12/23/21 [Lac-Hydrin 12% Lotion] Artificial Tears-Hypromellose 2 drops BOTH EYES BID PRN 30 Days 12/23/21 [Artificial Tear Drops] ml Aspirin EC [Ecotrin Low Dose] 81 mg PO DAILY 30 Days tab 12/23/21 Atorvastatin [Lipitor] 20 mg PO HS 30 Days tab 12/23/21 Diltiazem Cd [Cardizem CD] 120 mg PO DAILY 30 Days cap 12/23/21 Divalproex ER [Depakote ER] 1,500 mg PO HS 30 Days tab 12/23/21 Ezetimibe [Zetia] 10 mg PO HS 30 Days tab 12/23/21 Fluticasone Propion/Salmeterol 1 puff INHALATION RT-BID 1 Days 12/23/21 [Advair 250-50 Diskus] each Hydrocortisone [Anusol-Hc] 1 applic RECTAL QID PRN #1 each 12/23/21 Ibuprofen [Advil] 200 mg PO BID PRN tab 12/23/21 Insulin Detemir (Levemir) [Levemir] 60 unit SQ HS 30 Days ml 12/23/21 Insulin Regular [HumuLIN R] 10 unit SQ TID-W/MEALS 30 Days ml 12/23/21 Metoprolol Tartrate [Lopressor] 50 mg PO BID 30 Days tab 12/23/21 Nystatin 100,000Unit/gm Cream 1 applic TOPICAL BID 30 Days each 12/23/21 [Mycostatin Cream] Omeprazole 20 mg PO DAILY 30 Days cap 12/23/21 QUEtiapine [SEROquel] 600 mg PO HS 30 Days tab 12/23/21 amantadine HCL [Symmetrel] 100 mg PO TID 30 Days cap 12/23/21 lamoTRIgine [LaMICtal] 100 mg PO HS 30 Days tab 12/23/21 Allergies Allergy/AdvReac Type Severity Reaction Status Date / Time amlodipine Allergy Unknown Verified 12/12/21 12:32 aripiprazole [From Abilify] Allergy Unknown Verified 12/12/21 12:32 atorvastatin [From Lipitor] Allergy Unknown Verified 12/12/21 12:32 benztropine [From Cogentin] Allergy Unknown Verified 12/12/21 12:32 chlorpromazine Allergy Unknown Verified 12/12/21 12:32 [From Thorazine] fluphenazine [From Prolixin] Allergy Unknown Verified 12/12/21 12:32 gabapentin Allergy Unknown Verified 12/12/21 12:32 haloperidol [From Haldol] Allergy Unknown Verified 12/12/21 12:32 insulin glargine Allergy Unknown Verified 12/12/21 12:32 [From Lantus] metformin Allergy Unknown Verified 12/12/21 12:32 olanzapine [From Zyprexa] Allergy Unknown Verified 12/12/21 12:32 paliperidone [From Invega] Allergy Unknown Verified 12/12/21 12:32 thiothixene Allergy Unknown Verified 12/12/21 12:32 ziprasidone [From Geodon] Allergy Unknown Verified 12/12/21 12:32 ABILIFY INJECTION Allergy Unknown Uncoded 12/12/21 12:32 INVEGA INJECTION Allergy Unknown Uncoded 12/12/21 12:32 Review of Systems ROS Statement: Those systems with pertinent positive or pertinent negative responses have been documented in the HPI. ROS Other: All systems not noted in ROS Statement are negative. Past Medical History Past Medical History: Asthma, COPD, CVA/TIA, Diabetes Mellitus, Hypertension Additional Past Medical History / Comment(s): Tremors History of Any Multi-Drug Resistant Organisms: None Reported Past Surgical History: Cholecystectomy Additional Past Surgical History / Comment(s): LEFT EYE Past Anesthesia/Blood Transfusion Reactions: No Reported Reaction Past Psychological History: Anxiety, Bipolar, Depression, Schizoaffective Disorder Smoking Status: Current every day smoker Past Alcohol Use History: None Reported Past Drug Use History: None Reported - Past Family History Father Family Medical History: Unable to Obtain General Exam - General Exam Comments Initial Comments: Physical Exam GENERAL: Patient is well-developed and well-nourished. Patient is nontoxic and well-hydrated and is in no distress. HENT: Normocephalic, Atraumatic. EYES: PERRL, EOMI PULMONARY: Unlabored respirations. CARDIOVASCULAR: RRR Warm and well perfused extremities ABDOMEN: Non-distended SKIN: No rashes or bruising : Deferred NEUROLOGIC: Alert and oriented Normal speech Normal gait MUSCULOSKELETAL: Moving all extremities with no apparent injury PSYCHIATRIC: No SI/HI Course Vital Signs 03/28/23 03/28/23 03/28/23 17:56 19:13 20:02 Temperature 98.1 F Pulse Rate 78 60 60 Respiratory 16 18 16 Rate Blood Pressure 150/80 141/76 148/77 O2 Sat by Pulse 99 98 98 Oximetry Medical Decision Making - Medical Decision Making Was pt. sent in by a medical professional or institution (, PA, SLIP FEEDER, urgent care, hospital, or detention...) When possible be specific @ -Yesterday physician Did you speak to anyone other than the patient for history (EMS, parent, family, police, friend...)? What history was obtained from this source @ -EMS Did you review nursing and triage notes (agree or disagree)? Why? @ -I reviewed and agree with triage notes Were old charts reviewed (outside hosp., previous admission, EMS record, old EKG, old radiological studies, urgent care reports/EKG's, detention records)? Report findings @ -Previous notes were reviewed Differential Diagnosis (chest pain, altered mental status, abdominal pain women, abdominal pain men, vaginal bleeding, weakness, fever, dyspnea, syncope, headache, dizziness, GI bleed, back pain, seizure, CVA, palpatations, mental health, musculoskeletal)? @ -Hyperglycemia due to illness versus medical noncompliance versus dietary noncompliance EKG interpreted by me (3pts min.). @ -[As above] X-rays interpreted by me (1pt min.). @ -[None done] CT interpreted by me (1pt min.). @ -[None done] U/S interpreted by me (1pt. min.). @ -[None done] What testing was considered but not performed or refused? (CT, X-rays, U/S, la bs)? Why? @ -[None] What meds were considered but not given or refused? Why? @ -Insulin was considered however patient's hyperglycemia is improving Did you discuss the management of the patient with other professionals (prof essionals i.e. , PA, SLIP FEEDER, lab, RT, psych nurse, psychiatric social worker supervisor, warm in, teacher, staff air defense officer, casework specialist)? Give summary @ -[No] Was smoking cessation discussed for >3mins.? @ -[No] Was critical care preformed (if so, how long)? @ -[No] Were there social determinants of health that impacted care today? How? (Homelessness, low income, unemployed, alcoholism, drug addiction, trans portation, low edu. Level, literacy, decrease access to med. care, correction, rehab)? @ -education level, medical literacy Was there de-escalation of care discussed even if they declined (Discuss DNR or withdrawal of care, Hospice)? DNR status @ -[No] What co-morbidities impacted this encounter? (DM, HTN, Smoking, COPD, CAD, Ca ncer, CVA, ARF, Chemo, Hep., AIDS, mental health diagnosis, sleep apnea, morbid obesity)? @ -Diabetes Was patient admitted / discharged? Hospital course, mention meds given and route, prescriptions, significant lab abnormalities, going to OR and other pertinent info. @ -Discharged Undiagnosed new problem with uncertain prognosis? @ -[No] Drug Therapy requiring intensive monitoring for toxicity (Heparin, Nitro, Insulin, Cardizem)? @ -[No] Were any procedures done? @ -[No] Diagnosis/symptom? @ -Hyperglycemia due to diabetes Acute, or Chronic, or Acute on Chronic? @ -Do not chronic Uncomplicated (without systemic symptoms) or Complicated (systemic symptoms)? @ -Uncomplicated Side effects of treatment? @ -[No] Exacerbation, Progression, or Severe Exacerbation? @ -[No] Poses a threat to life or bodily function? How? (Chest pain, [place], [place], pneumonia, PE, COPD, DKA, ARF, appy, cholecystitis, CVA, Diverticulitis, Homicidal, Suicidal, threat to staff... and all critical care pts) @ -Yes, risk of DKA, risk of electrolyte instability, - Lab Data Result diagrams: 03/28/23 20:06 03/28/23 20:06 Lab Results 03/28/23 03/28/23 03/28/23 Range/Units 18:01 20:06 20:06 WBC 6.3 (3.8-10.6) k/uL RBC 5.09 (4.30-5.90) m/uL Hgb 17.5 (13.0-17.5) gm/dL Hct 50.9 (39.0-53.0) % MCV 99.9 (80.0-100.0) fL MCH 34.5 (25.0-35.0) pg MCHC 34.5 (31.0-37.0) g/dL RDW 12.2 (11.5-15.5) % Plt Count 114 L (150-450) k/uL MPV 8.6 Neutrophils % 51 % Lymphocytes % 36 % Monocytes % 11 % Eosinophils % 1 % Basophils % 0 % Neutrophils # 3.2 (1.3-7.7) k/uL Lymphocytes # 2.3 (1.0-4.8) k/uL Monocytes # 0.7 (0-1.0) k/uL Eosinophils # 0.1 (0-0.7) k/uL Basophils # 0.0 (0-0.2) k/uL PT (9.0-12.0) sec INR (<1.2) APTT (22.0-30.0) sec Sodium 136 L (137-145) mmol/L Potassium 4.2 (3.5-5.1) mmol/L Chloride 101 (98-107) mmol/L Carbon Dioxide 22 (22-30) mmol/L Anion Gap 13 mmol/L BUN 27 H (9-20) mg/dL Creatinine 0.83 (0.66-1.25) mg/dL Est GFR (CKD-EPI)AfAm >90 (>60 ml/min/1.73 sqM) Est GFR (CKD-EPI)NonAf >90 (>60 ml/min/1.73 sqM) Glucose 366 H (74-99) mg/dL POC Glucose (mg/dL) 378 H (70-110) mg/dL POC Glu Crop Farm Helper ID Dang Ramirez T Calcium 9.0 (8.4-10.2) mg/dL Total Bilirubin 0.5 (0.2-1.3) mg/dL AST 23 (17-59) U/L ALT 20 (4-49) U/L Alkaline Phosphatase 70 (38-126) U/L Troponin I (0.000-0.034) ng/mL Total Protein 6.6 (6.3-8.2) g/dL Albumin 4.1 (3.5-5.0) g/dL 03/28/23 03/28/23 03/28/23 Range/Units 20:06 20:06 20:33 WBC (3.8-10.6) k/uL RBC (4.30-5.90) m/uL Hgb (13.0-17.5) gm/dL Hct (39.0-53.0) % MCV (80.0-100.0) fL MCH (25.0-35.0) pg MCHC (31.0-37.0) g/dL RDW (11.5-15.5) % Plt Count (150-450) k/uL MPV Neutrophils % % Lymphocytes % % Monocytes % % Eosinophils % % Basophils % % Neutrophils # (1.3-7.7) k/uL Lymphocytes # (1.0-4.8) k/uL Monocytes # (0-1.0) k/uL Eosinophils # (0-0.7) k/uL Basophils # (0-0.2) k/uL PT 10.7 (9.0-12.0) sec INR 1.0 (<1.2) APTT 24.3 (22.0-30.0) sec Sodium (137-145) mmol/L Potassium (3.5-5.1) mmol/L Chloride (98-107) mmol/L Carbon Dioxide (22-30) mmol/L Anion Gap mmol/L BUN (9-20) mg/dL Creatinine (0.66-1.25) mg/dL Est GFR (CKD-EPI)AfAm (>60 ml/min/1.73 sqM) Est GFR (CKD-EPI)NonAf (>60 ml/min/1.73 sqM) Glucose (74-99) mg/dL POC Glucose (mg/dL) 204 H (70-110) mg/dL POC Glu Crop Farm Helper ID Ashley DangPalma Calcium (8.4-10.2) mg/dL Total Bilirubin (0.2-1.3) mg/dL AST (17-59) U/L ALT (4-49) U/L Alkaline Phosphatase (38-126) U/L Troponin I <0.012 (0.000-0.034) ng/mL Total Protein (6.3-8.2) g/dL Albumin (3.5-5.0) g/dL Disposition Clinical Impression: Hyperglycemia Disposition: HOME SELF-CARE Condition: Stable Instructions (If sedation given, give patient instructions): Diabetic Hyperglycemia (ED) Is patient prescribed a controlled substance at d/c from ED?: No Referrals: Celio Friedman MD [Primary Care Provider] - 1-2 days
[2023-03-28 19:14] VITALS: PULSE 60
[2023-03-28 20:03] VITALS: BP 148/77; RESP 16
[2023-03-28 20:11] LABS: Basophils % (A) 0 %; Eosinophils # (A) 0.1 k/uL (0-0.7); Eosinophils % (A) 1 %; HCT 50.9 % (39.0-53.0); HGB 17.5 gm/dL (13.0-17.5); Lymphocytes # (A) 2.3 k/uL (1.0-4.8); Lymphocytes % (A) 36 %; MCH 34.5 pg (25.0-35.0); MCHC 34.5 g/dL (31.0-37.0); MCV 99.9 fL (80.0-100.0); Mean Platelet Volume 8.6; Monocytes # (A) 0.7 k/uL (0-1.0); Monocytes % (A) 11 %; Neutrophils # (A) 3.2 k/uL (1.3-7.7); Neutrophils % (A) 51 %; Platelet Count 114 k/uL (150-450); RBC 5.09 m/uL (4.30-5.90); RDW 12.2 % (11.5-15.5); WBC 6.3 k/uL (3.8-10.6)
[2023-03-28 20:21] LABS: Partial Thromboplastin Time 24.3 sec (22.0-30.0); Prothrombin Time 10.7 sec (9.0-12.0)
[2023-03-28 20:34] LABS: Glucose,Whole Blood 204 mg/dL (70-110)
[2023-03-28 20:35] LABS: ALT 20 U/L (4-49); AST 23 U/L (17-59); African American GFR (CKD) >90 (>60 ml/min/1.73 sqM); Albumin 4.1 g/dL (3.5-5.0); Alkaline Phosphatase 70 U/L (38-126); Anion Gap 13 mmol/L; Blood Urea Nitrogen 27 mg/dL (9-20); Carbon Dioxide 22 mmol/L (22-30); Chloride 101 mmol/L (98-107); Glucose 366 mg/dL (74-99); Non-African American GFR(CKD) >90 (>60 ml/min/1.73 sqM); Potassium 4.2 mmol/L (3.5-5.1); Sodium 136 mmol/L (137-145); Total Bilirubin 0.5 mg/dL (0.2-1.3); Total Protein 6.6 g/dL (6.3-8.2)
== END 2023-03-28 21:20 | disposition home or self-care (01) ==
LOC: EC 17:53
DX: E11.65 Type 2 diabetes mellitus with hyperglycemia (principal); J44.9 Chronic obstructive pulmonary disease, unspecified; I10 Essential (primary) hypertension; Z86.73 Personal history of transient ischemic attack (TIA), and cerebral infarction without residual deficits; F41.9 Anxiety disorder, unspecified; F31.9 Bipolar disorder, unspecified; F17.200 Nicotine dependence, unspecified, uncomplicated; Z88.8 Allergy status to other drugs, medicaments and biological substances; Z88.5 Allergy status to narcotic agent; Z91.048 Other nonmedicinal substance allergy status; Z79.899 Other long term (current) drug therapy
CPT/HCPCS: 36415; 80053; 84484; 85025; 85610; 85730; 99285

== ENCOUNTER 2023-04-01 10:27 | Inpatient (IN) | payer MEDICARE, MEDICAID ==
[2023-04-01 12:05] LABS: Glucose,Whole Blood 330 mg/dL (70-110)
[2023-04-01] MEDS ORDERED: INSULIN REGULAR 100 UNIT/ML VIAL (IV) SQ ONE (12:06)
--- NOTE | 2023-04-01 14:11 | ED ---
Psych HPI - General Chief Complaint: Psychiatric Symptoms Stated Complaint: mental health Time Seen by Provider: 04/01/23 10:40 Source: patient Mode of arrival: ambulatory - History of Present Illness Initial Comments: [id number] male presents to the emergency department for psychiatric evaluation. He resides in a fpc. It is reported on the sheet that the patient woke up 2 hours late for his morning meds. He finally woke up he asked for them and the nursing staff would not distribute them as they state he was too far past medication administration. Patient became angry. He was threatening staff and threw a cup down. They called police. He does arrive and is petitioned. Denies any suicidal thoughts. He claims that the facility is not giving him his insulin. No other alleviating, precipitating or modifying factors - Related Data Home Medications Medication Instructions Recorded Confirmed Pregabalin [Lyrica] 75 mg PO DAILY@79904/20/18 04/01/23 Acetaminophen [Tylenol Arthritis] 650 mg PO Q8H PRN 12/02/19 04/01/23 Carbamide Peroxide [Debrox Otic] 4 drops BOTH EARS BID PRN 12/08/21 04/01/23 Artificial Tears-Hypromellose 1 - 2 drops BOTH EYES BID PRN 04/01/23 04/01/23 [Artificial Tear Drops] Aspirin EC [Ecotrin Low Dose] 81 mg PO DAILY@79904/01/23 04/01/23 Clotrimazole/Betameth Cream 1 applic TOPICAL BID@799,209904/01/23 04/01/23 [Lotrisone] Diltiazem Cd [Cardizem CD] 120 mg PO DAILY@79904/01/23 04/01/23 Diltiazem Cd [Cardizem CD] 240 mg PO DAILY@79904/01/23 04/01/23 Divalproex ER [Depakote ER] 1,500 mg PO HS@209904/01/23 04/01/23 Dulaglutide [Trulicity] 1.5 mg SQ TH@209904/01/23 04/01/23 Ezetimibe [Zetia] 10 mg PO HS@209904/01/23 04/01/23 Fluticasone Propion/Salmeterol 1 puff INHALATION RT-BID@799,209904/01/23 04/01/23 [Advair 250-50 Diskus] Hydrocortisone Cream 1 applic TOPICAL TID PRN 04/01/23 04/01/23 [Hydrocortisone 2.5% Cream] Hydrocortisone Pr Cream 1 applic RECTAL DAILY PRN 04/01/23 04/01/23 [Proctosol-Hc 2.5%] Insulin Detemir [Levemir Flextouch] 70 unit SQ HS 04/01/23 04/01/23 Insulin Regular, Human [Novolin R 7 units SQ [facility] 04/01/23 04/01/23 Flexpen] Insulin Regular, Human [Novolin R See Protocol SQ [facility] 04/01/23 04/01/23 Flexpen] LORazepam [Ativan] 1 mg PO DAILY PRN 04/01/23 04/01/23 LORazepam [Ativan] 1 mg PO HS@209904/01/23 04/01/23 Mag Hydrox/Aluminum Hyd/Simeth 5 ml PO Q8H PRN 04/01/23 04/01/23 [Mylanta Maximum Strength Liq] Meclizine [Antivert] 12.5 mg PO BID PRN 04/01/23 04/01/23 Metoprolol Tartrate [Lopressor] 50 mg PO BID@0800,209904/01/23 04/01/23 [place]-3 Fatty Acids [[place]-3] 1,000 mg PO BID@0800,209904/01/23 04/01/23 Omeprazole 20 mg PO DAILY@0804/01/23 04/01/23 Prochlorperazine [Compazine] 10 mg PO Q8H PRN 04/01/23 04/01/23 QUEtiapine FUMARATE [SEROquel XR] 800 mg PO HS@209904/01/23 04/01/23 amantadine HCL [Symmetrel] 100 mg PO TID@0800,1200,209904/01/23 04/01/23 guaiFENesin-DM 100-10MG/5ML 10 ml PO Q4H PRN 04/01/23 04/01/23 [Robitussin DM] guaiFENesin-DM 600/30MG [Mucinex 2 tab PO Q12HR PRN 04/01/23 04/01/23 Dm] lamoTRIgine [LaMICtal] 50 mg PO DAILY@0800 04/01/23 04/01/23 Previous Rx's Medication Instructions Recorded Albuterol Sulfate [Ventolin HFA] 1 - 2 puff INHALATION RT-Q6H PRN 12/23/21 #1 each Ammonium Lactate Lotion 1 applic TOPICAL BID PRN #1 12/23/21 [Lac-Hydrin 12% Lotion] Allergies Allergy/AdvReac Type Severity Reaction Status Date / Time amlodipine Allergy Unknown Verified 04/01/23 13:03 aripiprazole [From Abilify] Allergy Unknown Verified 04/01/23 13:03 atorvastatin [From Lipitor] Allergy Unknown Verified 04/01/23 13:03 benztropine [From Cogentin] Allergy Unknown Verified 04/01/23 13:03 chlorpromazine Allergy Unknown Verified 04/01/23 13:03 [From Thorazine] fluphenazine [From Prolixin] Allergy Unknown Verified 04/01/23 13:03 gabapentin Allergy Unknown Verified 04/01/23 13:03 haloperidol [From Haldol] Allergy Unknown Verified 04/01/23 13:03 insulin glargine Allergy Unknown Verified 04/01/23 13:03 [From Lantus] metformin Allergy Unknown Verified 04/01/23 13:03 olanzapine [From Zyprexa] Allergy Unknown Verified 04/01/23 13:03 paliperidone [From Invega] Allergy Unknown Verified 04/01/23 13:03 thiothixene Allergy Unknown Verified 04/01/23 13:03 ziprasidone [From Geodon] Allergy Unknown Verified 04/01/23 13:03 ABILIFY INJECTION Allergy Unknown Uncoded 04/01/23 13:03 INVEGA INJECTION Allergy Unknown Uncoded 04/01/23 13:03 Review of Systems ROS Statement: Those systems with pertinent positive or pertinent negative responses have been documented in the HPI. ROS Other: All systems not noted in ROS Statement are negative. Past Medical History Past Medical History: Asthma, COPD, CVA/TIA, Diabetes Mellitus, Hypertension, Thyroid Disorder Additional Past Medical History / Comment(s): Tremors History of Any Multi-Drug Resistant Organisms: None Reported Past Surgical History: Cholecystectomy Additional Past Surgical History / Comment(s): LEFT EYE Past Anesthesia/Blood Transfusion Reactions: No Reported Reaction Past Psychological History: Anxiety, Bipolar, Depression, Schizoaffective Disorder Smoking Status: Current every day smoker Past Alcohol Use History: None Reported Past Drug Use History: None Reported - Past Family History Father Family Medical History: Unable to Obtain General Exam Limitations: no limitations General appearance: alert, in no apparent distress Head exam: Present: atraumatic, normocephalic, normal inspection Eye exam: Present: normal appearance, PERRL, EOMI. Absent: scleral icterus, conjunctival injection, periorbital swelling ENT exam: Present: normal exam, mucous membranes moist Neck exam: Present: normal inspection. Absent: tenderness, meningismus, lymphadenopathy Respiratory exam: Present: normal lung sounds bilaterally. Absent: respiratory distress, wheezes, rales, rhonchi, stridor Cardiovascular Exam: Present: regular rate, normal rhythm, normal heart sounds. Absent: systolic murmur, diastolic murmur, rubs, gallop, clicks GI/Abdominal exam: Present: soft, normal bowel sounds. Absent: distended, tenderness, guarding, rebound, rigid Extremities exam: Present: normal inspection, full ROM, normal capillary refill. Absent: tenderness, pedal edema, joint swelling, calf tenderness Back exam: Present: normal inspection Neurological exam: Present: alert, oriented X3, CN II-XII intact Psychiatric exam: Present: normal affect, normal mood Skin exam: Present: warm, dry, intact, normal color. Absent: rash Course Vital Signs 04/01/23 04/01/23 10:38 14:30 Temperature 98.5 F 98.5 F Pulse Rate 82 Pulse Rate [ 71 Right Brachial] Respiratory 18 16 Rate Blood Pressure 153/95 Blood Pressure 126/70 [Right Arm] O2 Sat by Pulse 99 Oximetry Medical Decision Making - Medical Decision Making Was pt. sent in by a medical professional or institution (, PA, YARD MANAGER, urgent care, hospital, or fpc...) When possible be specific @ -intermediate Did you speak to anyone other than the patient for history (EMS, parent, family, police, friend...)? What history was obtained from this source @ -EMS Did you review nursing and triage notes (agree or disagree)? Why? @ -I reviewed and agree with nursing and triage notes Were old charts reviewed (outside hosp., previous admission, EMS record, old EKG, old radiological studies, urgent care reports/EKG's, fpc records)? Report findings @ -No old charts were reviewed Differential Diagnosis (chest pain, altered mental status, abdominal pain women, abdominal pain men, vaginal bleeding, weakness, fever, dyspnea, syncope, headache, dizziness, GI bleed, back pain, seizure, CVA, palpatations, mental health, musculoskeletal)? @ -depression, anxiety, aggressive behavior EKG interpreted by me (3pts min.). @ -not done X-rays interpreted by me (1pt min.). @ -None done CT interpreted by me (1pt min.). @ -not done U/S interpreted by me (1pt. min.). @ -None done What testing was considered but not performed or refused? (CT, X-rays, U/S, labs)? Why? @ -None What meds were considered but not given or refused? Why? @ -None Did you discuss the management of the patient with other professionals (professionals i.e. , PA, YARD MANAGER, lab, RT, psych nurse, health social work professor, motion picture cameraman, teacher, loan officer, adult protective caseworker)? Give summary @ -EPS nurse Was smoking cessation discussed for >3mins.? @ -No Was critical care preformed (if so, how long)? @ -no Were there social determinants of health that impacted care today? How? (Home lessness, low income, unemployed, alcoholism, drug addiction, transportation, low edu. Level, literacy, decrease access to med. care, intermediate, rehab)? @ -No Was there de-escalation of care discussed even if they declined (Discuss DNR or withdrawal of care, Hospice)? DNR status @ -No What co-morbidities impacted this encounter? (DM, HTN, Smoking, COPD, CAD, Cancer, CVA, ARF, Chemo, Hep., AIDS, mental health diagnosis, sleep apnea, morbid obesity)? @ -None Was patient admitted / discharged? Hospital course, mention meds given and route, prescriptions, significant lab abnormalities, going to OR and other pertinent info. @ -Patient placed into room 14. History and physical exam is performed. Accu- Chek is performed and the patient sugars in the 300s. He is reevaluated by EPS. Feels that the patient could be admitted. I filled out a prescription of medication on the patient and he was taken to the floor in stable condition Undiagnosed new problem with uncertain prognosis? @ -yes Drug Therapy requiring intensive monitoring for toxicity (Heparin, Nitro, Insulin, Cardizem)? @ -no Were any procedures done? @ -No Diagnosis/symptom? @ -acute aggression Acute, or Chronic, or Acute on Chronic? @ -acute Uncomplicated (without systemic symptoms) or Complicated (systemic symptoms)? @ -complicated Side effects of treatment? @ -none Exacerbation, Progression, or Severe Exacerbation? @ -No Poses a threat to life or bodily function? How? (Chest pain, [place], [place], pneumonia, PE, COPD, DKA, ARF, appy, cholecystitis, CVA, Diverticulitis, Homicidal, Suicidal, threat to staff... and all critical care pts) @ -yes, patient actively threatening staff - Lab Data Result diagrams: 04/01/23 14:57 04/01/23 14:57 Lab Results 04/01/23 04/01/23 04/01/23 Range/Units 12:04 12:25 13:48 POC Glucose (mg/dL) 330 H (70-110) mg/dL POC Glu Lasting Machine Operator ID Brian Thomas Urine Color Light Yellow Urine Appearance Clear (Clear) Urine pH 5.5 (5.0-8.0) Ur Specific [place] 1.031 (1.001-1.035) Urine Protein Negative (Negative) Urine Glucose (UA) 4+ H (Negative) Urine Ketones 1+ H (Negative) Urine Blood Negative (Negative) Urine Nitrite Negative (Negative) Urine Bilirubin Negative (Negative) Urine Urobilinogen <2.0 (<2.0) mg/dL Ur Leukocyte Esterase Negative (Negative) Urine Opiates Screen (NotDetected) Ur Oxycodone Screen (NotDetected) Urine Methadone Screen (NotDetected) Ur Propoxyphene Screen (NotDetected) Ur Barbiturates Screen (NotDetected) U Tricyclic Antidepress (NotDetected) Ur Phencyclidine Scrn (NotDetected) Ur Amphetamines Screen (NotDetected) U Methamphetamines Scrn (NotDetected) U Benzodiazepines Scrn (NotDetected) Urine Cocaine Screen (NotDetected) U Marijuana (THC) Screen (NotDetected) Coronavirus (PCR) Not Detected (Not Detectd) 04/01/23 Range/Units 13:48 POC Glucose (mg/dL) (70-110) mg/dL POC Glu Lasting Machine Operator ID Urine Color Urine Appearance (Clear) Urine pH (5.0-8.0) Ur Specific [place] (1.001-1.035) Urine Protein (Negative) Urine Glucose (UA) (Negative) Urine Ketones (Negative) Urine Blood (Negative) Urine Nitrite (Negative) Urine Bilirubin (Negative) Urine Urobilinogen (<2.0) mg/dL Ur Leukocyte Esterase (Negative) Urine Opiates Screen Not Detected (NotDetected) Ur Oxycodone Screen Not Detected (NotDetected) Urine Methadone Screen Not Detected (NotDetected) Ur Propoxyphene Screen Not Detected (NotDetected) Ur Barbiturates Screen Not Detected (NotDetected) U Tricyclic Antidepress Detected H (NotDetected) Ur Phencyclidine Scrn Not Detected (NotDetected) Ur Amphetamines Screen Not Detected (NotDetected) U Methamphetamines Scrn Not Detected (NotDetected) U Benzodiazepines Scrn Detected H (NotDetected) Urine Cocaine Screen Not Detected (NotDetected) U Marijuana (THC) Screen Not Detected (NotDetected) Coronavirus (PCR) (Not Detectd) Disposition Clinical Impression: Schizoaffective disorder Disposition: TRANSFER TO PSYCH HOSP/UNIT Condition: Stable Is patient prescribed a controlled substance at d/c from ED?: No Time of Disposition: 14:11 Decision to Admit Reason: Admit from EC Decision Date: 04/01/23 Decision Time: 14:11
[2023-04-01] MEDS ORDERED: MAGNESIUM HYDROXIDE 2,400 MG/30 ML CUP PO PRN (14:22)
[2023-04-01 14:24] LABS: Appearance,Urine Clear (Clear); Bilirubin,Urine Negative (Negative); Blood,Urine Negative (Negative); Color,Urine Light Yellow; Glucose,Urine (UA) 4+ (Negative); Ketones,Urine 1+ (Negative); Leukocyte Esterase,Urine Negative (Negative); Nitrite,Urine Negative (Negative); PH, Urine 5.5 (5.0-8.0); Protein,Urine Negative (Negative); Specific Gravity,Urine 1.031 (1.001-1.035); Urobilinogen,Urine <2.0 mg/dL (<2.0)
[2023-04-01] MEDS ORDERED: LORazepam 2 MG/ML INJ IM PRN (14:32)
[2023-04-01 14:43] LABS: Amphetamine Screen,Urine Not Detected (NotDetected); Barbiturate Screen,Urine Not Detected (NotDetected); Benzodiazepines Screen,Urine Detected (NotDetected); Cocaine Screen,Urine Not Detected (NotDetected); Methadone Screen, Urine Not Detected (NotDetected); Opiate Screen,Urine Not Detected (NotDetected); Oxycodone Screen, Urine Not Detected (NotDetected); Phencyclidine Screen,Urine Not Detected (NotDetected); Tricyclic Antidepressant,Urine Detected (NotDetected); Urn Cannabinoid Scrn Not Detected (NotDetected)
[2023-04-01] MEDS ORDERED: ARTIFICIAL TEARS-HYPROMELLOSE DROPS 15 ML BTL BOTH EYES PRN (14:47)
[2023-04-01] MEDS ORDERED: HYDROCORTISONE 1% CREAM 30 GM TUBE TOPICAL PRN (14:47)
[2023-04-01] MEDS ORDERED: MECLIZINE 12.5 MG TAB PO PRN (14:47)
[2023-04-01] MEDS ORDERED: PROCHLORPERAZINE 10 MG TAB PO PRN (14:47)
[2023-04-01] MEDS ORDERED: ACETAMINOPHEN TAB 325 MG TAB PO PRN (14:47)
[2023-04-01] MEDS ORDERED: ALBUTEROL INHALER 60 PUFF/8 GM INHALER (MHU) INHALATION PRN (14:47)
[2023-04-01] MEDS ORDERED: CARBAMIDE PEROXIDE 6.5% DROPS 15 ML BTL BOTH EARS PRN (14:47)
[2023-04-01] MEDS ORDERED: guaiFENesin-DM 600/30MG 1 EACH TAB.ER.12H PO PRN (14:47)
[2023-04-01] MEDS ORDERED: HYDROCORTISONE 2.5% RECTAL CREAM 30 GM TUBE RECTAL PRN (14:47)
[2023-04-01] MEDS ORDERED: guaiFENesin-DM 100-10MG/5ML 10 ML CUP PO PRN (14:47)
[2023-04-01 15:36] LABS: Basophils # (A) 0.1 k/uL (0-0.2); Basophils % (A) 1 %; Eosinophils # (A) 0.1 k/uL (0-0.7); Eosinophils % (A) 1 %; HCT 52.8 % (39.0-53.0); HGB 18.7 gm/dL (13.0-17.5); Lymphocytes # (A) 3.6 k/uL (1.0-4.8); Lymphocytes % (A) 38 %; MCH 35.1 pg (25.0-35.0); MCHC 35.4 g/dL (31.0-37.0); MCV 99.1 fL (80.0-100.0); Mean Platelet Volume 7.7; Monocytes # (A) 0.8 k/uL (0-1.0); Monocytes % (A) 9 %; Neutrophils # (A) 4.8 k/uL (1.3-7.7); Neutrophils % (A) 50 %; Platelet Count 121 k/uL (150-450); RBC 5.32 m/uL (4.30-5.90); RDW 12.1 % (11.5-15.5); WBC 9.5 k/uL (3.8-10.6)
[2023-04-01 15:44] LABS: ALT 21 U/L (4-49); AST 23 U/L (17-59); African American GFR (CKD) >90 (>60 ml/min/1.73 sqM); Albumin 4.3 g/dL (3.5-5.0); Alkaline Phosphatase 71 U/L (38-126); Anion Gap 10 mmol/L; Blood Urea Nitrogen 29 mg/dL (9-20); Calcium 9.4 mg/dL (8.4-10.2); Carbon Dioxide 26 mmol/L (22-30); Chloride 102 mmol/L (98-107); Glucose 207 mg/dL (74-99); Non-African American GFR(CKD) >90 (>60 ml/min/1.73 sqM); Sodium 138 mmol/L (137-145); Total Bilirubin 0.6 mg/dL (0.2-1.3); Total Protein 7.1 g/dL (6.3-8.2)
[2023-04-01 17:37] LABS: Glucose,Whole Blood 216 mg/dL (70-110)
[2023-04-01] MEDS: INSULIN REGULAR 100 UNIT/ML VIAL (IM/SQ) SQ SCH ×2 (17:47→20:00)
[2023-04-01] MEDS: MAG HYDROX/AL HYDROX/SIMETH 30 ML CUP PO PRN (19:19)
[2023-04-01] MEDS: CLOTRIMAZOLE/BETAMETH 1-0.05% CREAM 45 GM TUBE TOPICAL SCH (19:28)
[2023-04-01 19:57] LABS: Glucose,Whole Blood 282 mg/dL (70-110)
[2023-04-01] MEDS: METOPROLOL TARTRATE 50 MG TAB PO SCH (19:59)
[2023-04-01] MEDS: DIVALPROEX ER 500 MG TAB.ER.24H PO SCH (19:59)
[2023-04-01] MEDS: QUEtiapine 400 MG TAB PO SCH (19:59)
[2023-04-01] MEDS: EZETIMIBE 10 MG TAB PO SCH (20:01)
[2023-04-01] MEDS: INSULIN DETEMIR (LEVEMIR) 100 UNIT/ML SYR SQ SCH (20:01)
[2023-04-01] MEDS: ACETAMINOPHEN TAB 325 MG TAB PO PRN (20:09)
[2023-04-01] MEDS: LORazepam 1 MG TAB PO PRN (20:47)
[2023-04-01] MEDS ORDERED: SYMBICORT 80-4.5 MCG INHALER INHALATION SCH (21:00)
[2023-04-01] MEDS ORDERED: NON FORMULARY DRUG (Omega-3 Fatty Acids [Omega-3] 1,000 MG Capsule) PO SCH (21:00)
[2023-04-02 06:08] LABS: Glucose,Whole Blood 74 mg/dL (70-110)
[2023-04-02 07:51] LABS: Glucose,Whole Blood 199 mg/dL (70-110)
[2023-04-02] MEDS: lamoTRIgine 25 MG TAB PO SCH (07:51)
[2023-04-02] MEDS: PREGABALIN 75 MG CAP PO SCH (07:51)
[2023-04-02] MEDS: DILTIAZEM CD 120 MG CAP.ER.24H PO SCH (07:51)
[2023-04-02] MEDS: DILTIAZEM CD 240 MG CAP.ER.24H PO SCH (07:51)
[2023-04-02] MEDS: METOPROLOL TARTRATE 50 MG TAB PO SCH ×2 (07:52→20:36)
[2023-04-02] MEDS: PANTOPRAZOLE 40 MG TABLET PO SCH (07:52)
[2023-04-02] MEDS: ASPIRIN 81 MG PO SCH (07:52)
[2023-04-02] MEDS: NICOTINE 14MG/24HR PATCH TRANSDERM SCH (07:53)
[2023-04-02] MEDS: ACETAMINOPHEN TAB 325 MG TAB PO PRN ×2 (07:55→18:07)
[2023-04-02] MEDS: LORazepam 1 MG TAB PO PRN (07:56)
[2023-04-02] MEDS: INSULIN REGULAR 100 UNIT/ML VIAL (IM/SQ) SQ SCH ×4 (07:57→20:24)
[2023-04-02] MEDS: QUEtiapine 400 MG TAB PO SCH ×2 (07:58→20:21)
[2023-04-02] MEDS: AMMONIUM LACTATE 12% LOTION 225 GM BTL TOPICAL PRN ×3 (07:58→20:25)
[2023-04-02] MEDS: CLOTRIMAZOLE/BETAMETH 1-0.05% CREAM 45 GM TUBE TOPICAL SCH ×2 (09:00→20:18)
--- NOTE | 2023-04-02 09:27 | P.HP ---
Psychiatric H&P - . H&P Date: 04/02/23 History & Physical: Allergies Allergy/AdvReac Type Severity Reaction Status Date / Time amlodipine Allergy Unknown Verified 04/01/23 13:03 aripiprazole [From Abilify] Allergy Unknown Verified 04/01/23 13:03 atorvastatin [From Lipitor] Allergy Unknown Verified 04/01/23 13:03 benztropine [From Cogentin] Allergy Unknown Verified 04/01/23 13:03 chlorpromazine Allergy Unknown Verified 04/01/23 13:03 [From Thorazine] fluphenazine [From Prolixin] Allergy Unknown Verified 04/01/23 13:03 gabapentin Allergy Unknown Verified 04/01/23 13:03 haloperidol [From Haldol] Allergy Unknown Verified 04/01/23 13:03 insulin glargine Allergy Unknown Verified 04/01/23 13:03 [From Lantus] metformin Allergy Unknown Verified 04/01/23 13:03 olanzapine [From Zyprexa] Allergy Unknown Verified 04/01/23 13:03 paliperidone [From Invega] Allergy Unknown Verified 04/01/23 13:03 thiothixene Allergy Unknown Verified 04/01/23 13:03 ziprasidone [From Geodon] Allergy Unknown Verified 04/01/23 13:03 ABILIFY INJECTION Allergy Unknown Uncoded 04/01/23 13:03 INVEGA INJECTION Allergy Unknown Uncoded 04/01/23 13:03 Vital Signs Temp 97.5 F L 04/02/23 06:43 Pulse 55 L 04/02/23 06:43 Resp 14 04/02/23 06:43 BP 110/59 04/02/23 06:43 Pulse Ox 99 04/01/23 10:38 FiO2 Intake & Output 04/01/23 04/02/23 04/02/23 18:59 06:59 18:59 Weight 79.01 kg 79 kg Laboratory Last Values WBC 9.5 k/uL (3.8-10.6) 04/01/23 14:57 RBC 5.32 m/uL (4.30-5.90) 04/01/23 14:57 Hgb 18.7 gm/dL (13.0-17.5) H 04/01/23 14:57 Hct 52.8 % (39.0-53.0) 04/01/23 14:57 MCV 99.1 fL (80.0-100.0) 04/01/23 14:57 MCH 35.1 pg (25.0-35.0) H 04/01/23 14:57 MCHC 35.4 g/dL (31.0-37.0) 04/01/23 14:57 RDW 12.1 % (11.5-15.5) 04/01/23 14:57 Plt Count 121 k/uL (150-450) L 04/01/23 14:57 MPV 7.7 04/01/23 14:57 Neutrophils % 50 % 04/01/23 14:57 Lymphocytes % 38 % 04/01/23 14:57 Monocytes % 9 % 04/01/23 14:57 Eosinophils % 1 % 04/01/23 14:57 Basophils % 1 % 04/01/23 14:57 Neutrophils # 4.8 k/uL (1.3-7.7) 04/01/23 14:57 Lymphocytes # 3.6 k/uL (1.0-4.8) 04/01/23 14:57 Monocytes # 0.8 k/uL (0-1.0) 04/01/23 14:57 Eosinophils # 0.1 k/uL (0-0.7) 04/01/23 14:57 Basophils # 0.1 k/uL (0-0.2) 04/01/23 14:57 Sodium 138 mmol/L (137-145) 04/01/23 14:57 Potassium 4.0 mmol/L (3.5-5.1) 04/01/23 14:57 Chloride 102 mmol/L (98-107) 04/01/23 14:57 Carbon Dioxide 26 mmol/L (22-30) 04/01/23 14:57 Anion Gap 10 mmol/L 04/01/23 14:57 BUN 29 mg/dL (9-20) H 04/01/23 14:57 Creatinine 0.74 mg/dL (0.66-1.25) 04/01/23 14:57 Est GFR (CKD-EPI)AfAm >90 (>60 ml/min/1.73 sqM) 04/01/23 14:57 Est GFR (CKD-EPI)NonAf >90 (>60 ml/min/1.73 sqM) 04/01/23 14:57 Glucose 207 mg/dL (74-99) H 04/01/23 14:57 POC Glucose (mg/dL) 199 mg/dL (70-110) H 04/02/23 07:49 POC Glu Toppiece Cutter ID Janki Zuñiga 04/02/23 07:49 Calcium 9.4 mg/dL (8.4-10.2) 04/01/23 14:57 Total Bilirubin 0.6 mg/dL (0.2-1.3) 04/01/23 14:57 AST 23 U/L (17-59) 04/01/23 14:57 ALT 21 U/L (4-49) 04/01/23 14:57 Alkaline Phosphatase 71 U/L (38-126) 04/01/23 14:57 Total Protein 7.1 g/dL (6.3-8.2) 04/01/23 14:57 Albumin 4.3 g/dL (3.5-5.0) 04/01/23 14:57 Urine Color Light Yellow 04/01/23 13:48 Urine Appearance Clear (Clear) 04/01/23 13:48 Urine pH 5.5 (5.0-8.0) 04/01/23 13:48 Ur Specific [place] 1.031 (1.001-1.035) 04/01/23 13:48 Urine Protein Negative (Negative) 04/01/23 13:48 Urine Glucose (UA) 4+ (Negative) H 04/01/23 13:48 Urine Ketones 1+ (Negative) H 04/01/23 13:48 Urine Blood Negative (Negative) 04/01/23 13:48 Urine Nitrite Negative (Negative) 04/01/23 13:48 Urine Bilirubin Negative (Negative) 04/01/23 13:48 Urine Urobilinogen <2.0 mg/dL (<2.0) 04/01/23 13:48 Ur Leukocyte Esterase Negative (Negative) 04/01/23 13:48 Urine Opiates Screen Not Detected (NotDetected) 04/01/23 13:48 Ur Oxycodone Screen Not Detected (NotDetected) 04/01/23 13:48 Urine Methadone Screen Not Detected (NotDetected) 04/01/23 13:48 Ur Propoxyphene Screen Not Detected (NotDetected) 04/01/23 13:48 Ur Barbiturates Screen Not Detected (NotDetected) 04/01/23 13:48 U Tricyclic Antidepress Detected (NotDetected) H 04/01/23 13:48 Ur Phencyclidine Scrn Not Detected (NotDetected) 04/01/23 13:48 Ur Amphetamines Screen Not Detected (NotDetected) 04/01/23 13:48 U Methamphetamines Scrn Not Detected (NotDetected) 04/01/23 13:48 U Benzodiazepines Scrn Detected (NotDetected) H 04/01/23 13:48 Urine Cocaine Screen Not Detected (NotDetected) 04/01/23 13:48 U Marijuana (THC) Screen Not Detected (NotDetected) 04/01/23 13:48 Coronavirus (PCR) Not Detected (Not Detectd) 04/01/23 12:25 04/02/23 09:18 This is a psychiatric evaluation on Alonso Summers who is a 58-year-old male and a currently residing in a longterm Patient is a very poor historian due to his rambling thoughts circumstantiality and tangentiality He remains very focused on his somatic complains He also demands that he be sent to [facility] and that this is just a small hospital that doesn't accomplish anything He states that he is tired of being at the longterm where he is been staying for about 2 months and that is not being treated well He admits that he is being switched from place to place for a long time and that he just can't find the right place He says that they're trying to get rid of him and also that they would not take him back He has much difficulty focusing on any questions and continues to ramble is on concerns and his somatic concerns He states that he has problems with his teeth with his back with his hands chest and his scrotum where he has a rash He says that he is not being provided his medications as needed Following is a mix up from the assessment done in the ER: year-old male presents to the emergency department for psychiatric evaluation. He resides in a longterm. It is reported on the sheet that the patient woke up 2 hours late for his morning meds. He finally woke up he asked for them and the nursing staff would not distribute them as they state he was too far past medication administration. Patient became angry. He was threatening staff and threw a cup down. They called police. He does arrive and is petitioned. Denies any suicidal thoughts. He claims that the facility is not giving him his insulin. No other alleviating, precipitating or modifying factors Past history personal and social history could not be collected in detail at that doesn't time due to patient's preoccupation with his current concerns and issues He remains projective rationalizing intellectualizing and difficult to be redirected Patient refused to sign voluntary inpatient paperwork The chart also reveals that most of the psychotropic medications that coming IM form having be listed as ALLERgic . 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 Behavior: Patient is seated without any agitated behavior. mildly irritable. Speech: Patient's speech is pressured with circumstantiality and tangentiality with somatic preoccupation patient remains very demanding and projective Mood/Affect: Patient reports their mood is fine affect is congruent and constricted. She comes across as somewhat expansive Suicidality/Homicidality: Patient denies having any homicidal ideation intent or plan. Denies any suicidal ideations intent or plan Perceptions: Patient denies any visual hallucinations and denies any auditory hallucinations Though content/process: There is evidence of expansiveness projection rationalization and intellectualization and expanded sense of self-worth Memory and concentration: AOX3, grossly intact for the purposes of this session. Can spell "WORLD" backwards Judgment and insight: poor/impulsive STRENGTHS/WEAKNESSES: strength is that patient is resilient. Weakness is that patient has poor judgment and is impulsive Diagnostic impression: Bipolar disorder hypomanic-type Somatoform disorder unspecified Intermittent explosive disorder PLAN: A physician's certificate was filled out and placed in the chart -Patient is admitted under involuntary status to MHU for stabilization of psychiatric symptoms and safety. Patient declined to sign adult voluntary form and medication consent -Medications : Will continue his home meds as prescribed -Ativan PRN for agitation/aggression Every antipsychotic medication that comes in intramuscular form has been this is an ALLERGIC and appears to be questionable -Internal Medicine consult to perform medical evaluation and physical. -SW on board for discharge planning. Encourage patient to participate in groups to work on coping skills. Navin Ibanez M.D. 04/02/2023
[2023-04-02 12:59] LABS: Glucose,Whole Blood 150 mg/dL (70-110)
[2023-04-02] MEDS: SYMBICORT 80-4.5 MCG INHALER (MHU) INHALATION SCH ×2 (12:59→20:35)
[2023-04-02 14:58] LABS: Chol/HDL Ratio 3.72 Ratio; LDL Cholesterol,Calculated 47.7 mg/dL (0.0-131.0)
[2023-04-02 17:38] LABS: Glucose,Whole Blood 190 mg/dL (70-110)
[2023-04-02 20:06] LABS: Glucose,Whole Blood 328 mg/dL (70-110)
[2023-04-02] MEDS: DIVALPROEX ER 500 MG TAB.ER.24H PO SCH (20:21)
[2023-04-02] MEDS: EZETIMIBE 10 MG TAB PO SCH (20:22)
[2023-04-02] MEDS: INSULIN DETEMIR (LEVEMIR) 100 UNIT/ML SYR SQ SCH (20:23)
--- NOTE | 2023-04-03 01:36 | CONS ---
CONSULTATION HISTORY OF PRESENT ILLNESS: This is a white male, who was admitted in the psychiatric allen for medical management. He has a history of hypertension, dyslipidemia, schizophrenia, and bipolar. He has been on medicine from a psychiatrist for many many years. He has multiple allergies to medications, which were reviewed. He has a history of COPD, for which he is supposed to be on inhalers and updrafts p.r.n. PHYSICAL EXAMINATION: VITAL SIGNS: Temperature 97.5, pulse 53 to 60, respiratory rate 14 to 16, blood pressure 110/59, O2 sat 99%, 79 kg. White count is 9.5, hemoglobin is 18.7, hematocrit is 52.8, GFR is over 90, creatinine 0.74, BUN 29, total bilirubin 0.6. UA is positive for benzos and tricyclic antidepressant. He has 4+ glucose, 1+ urinary ketone. His glucose is 207. He stays in a prison normally. He has rambling thoughts apparently when Psychiatry talked to him. He is focusing on somatic complaints. He cannot find the right place to live, he tells the psychiatrist. He says some problem with his teeth, in his back, in his hands, in chest, in scrotum, he has a rash. Apparently, in the emergency room, he became angry and threatening staff, that is why he is in the psych allen. They called the police. They were petitioned. He looks his stated age. He sees psychiatry for evaluation. ASSESSMENT: Bipolar disorder, hypomania syndrome, somatoform disorder, intermittent explosive disorder, history of chronic obstructive pulmonary disease, polycythemia, possible sleep apnea. He does not want to do a sleep study or oxygen test at home. Continue his home medications and monitor his blood pressure and his breathing. Prognosis guarded. MMODL / IJN: [id number] /
[2023-04-03] MEDS: ACETAMINOPHEN TAB 325 MG TAB PO PRN ×2 (03:34→17:56)
[2023-04-03 07:38] LABS: Glucose,Whole Blood 89 mg/dL (70-110)
[2023-04-03 07:45] LABS: Glucose,Whole Blood 104 mg/dL (70-110)
[2023-04-03] MEDS: INSULIN REGULAR 100 UNIT/ML VIAL (IM/SQ) SQ SCH ×4 (08:35→20:47)
[2023-04-03] MEDS: ASPIRIN 81 MG PO SCH (08:36)
[2023-04-03] MEDS: DILTIAZEM CD 120 MG CAP.ER.24H PO SCH (08:36)
[2023-04-03] MEDS: DILTIAZEM CD 240 MG CAP.ER.24H PO SCH (08:36)
[2023-04-03] MEDS: PREGABALIN 75 MG CAP PO SCH (08:36)
[2023-04-03] MEDS: METOPROLOL TARTRATE 50 MG TAB PO SCH ×2 (08:36→20:47)
[2023-04-03] MEDS: PANTOPRAZOLE 40 MG TABLET PO SCH (08:36)
[2023-04-03] MEDS: lamoTRIgine 25 MG TAB PO SCH (08:37)
[2023-04-03] MEDS: NICOTINE 14MG/24HR PATCH TRANSDERM SCH (08:37)
[2023-04-03] MEDS: QUEtiapine 400 MG TAB PO SCH (08:37)
[2023-04-03] MEDS: LORazepam 1 MG TAB PO PRN (08:39)
[2023-04-03] MEDS: CLOTRIMAZOLE/BETAMETH 1-0.05% CREAM 45 GM TUBE TOPICAL SCH ×2 (08:40→20:47)
[2023-04-03] MEDS: AMMONIUM LACTATE 12% LOTION 225 GM BTL TOPICAL PRN (08:41)
[2023-04-03] MEDS: SYMBICORT 80-4.5 MCG INHALER (MHU) INHALATION SCH ×2 (08:41→20:48)
--- NOTE | 2023-04-03 10:40 | P.PN ---
Progress Note - Text Progress Note Date: 04/03/23 Interval history: Patient was seen laying in his bed and was agreeable to speak to consumer loan underwriter in the office today. Patient appears to have mild disheveled appearance today. Poor eye contact. He spoke briefly about his interaction with a staff member at the alf and states that "she wouldn't give me my medications when I asked for it" and states that he slammed a cup of milk down and it scared her. He states that he has been taking his medications regularly at the alf and denied any problems. He spoke about a cream for his genitals that she was not allowing him to have. She currently claims that that was the only cream that was helping him. He states that he is okay with having his Seroquel adjusted however does not want to sign for any medications. States that he did not sleep well last night, does have mild irritability on presentation. endorsing irritability and poor impulse control. he claims that he has chronic AH of hearing music for years, deneis any VH. denies any Si or HI at this time. Mental status examination: General Appearance: Patient appears to be older than stated age is alert, disheveled and in hospital gown, Patient appears to be in poor hygiene and grooming. Behavior: Patient is seated without any agitated behavior. irritable. poor impulse control. Speech: Patient's speech is pressured with circumstantiality and tangentiality Mood/Affect: Patient reports their mood is labil and irritable affect is congruent and constricted. somewhat expansive Suicidality/Homicidality: Patient denies having any homicidal ideation intent or plan. Denies any suicidal ideations intent or plan Perceptions: Patient denies any visual hallucinations and denies any auditory hallucinations Though content/process: There is evidence of expansiveness projection rationalization and intellectualization and expanded sense of self-worth Memory and concentration: AOX3, grossly intact for the purposes of this session Judgment and insight: poor/impulsive, improving mildly Diagnosis: schizoaffective disorder, bipolar type Somatoform disorder unspecified Intermittent explosive disorder nicotine dependence PLAN: -Patient is admitted under involuntary status to MHU for stabilization of psychiatric symptoms and safety. Patient declined to sign adult voluntary form and medication consent -Medications : continue with lamictal 50 mg daily for mood stabilization, seroquel changed to 200 mg daily + 600 mg qhs for mood stabilization/insomnia. depakote 1500 mg qhs for mood stabilization. -Ativan PRN for agitation/aggression -SW on board for discharge planning. -NRT - nicotine patch Encourage patient to participate in groups to work on coping skills. awaiting court and deferral date. likely discharge in 2-3 days back to alf.
[2023-04-03 13:10] LABS: Glucose,Whole Blood 327 mg/dL (70-110)
[2023-04-03 17:56] LABS: Glucose,Whole Blood 251 mg/dL (70-110)
[2023-04-03 19:50] LABS: Glucose,Whole Blood 290 mg/dL (70-110)
[2023-04-03] MEDS: QUEtiapine 200 MG TAB PO SCH (20:46)
[2023-04-03] MEDS: DIVALPROEX ER 500 MG TAB.ER.24H PO SCH (20:46)
[2023-04-03] MEDS: EZETIMIBE 10 MG TAB PO SCH (20:46)
[2023-04-03] MEDS: INSULIN DETEMIR (LEVEMIR) 100 UNIT/ML SYR SQ SCH (20:48)
[2023-04-04 07:46] LABS: Glucose,Whole Blood 114 mg/dL (70-110)
[2023-04-04] MEDS: INSULIN REGULAR 100 UNIT/ML VIAL (IM/SQ) SQ SCH ×4 (08:26→20:15)
[2023-04-04] MEDS: SYMBICORT 80-4.5 MCG INHALER (MHU) INHALATION SCH ×2 (08:27→20:15)
[2023-04-04] MEDS: ASPIRIN 81 MG PO SCH (08:27)
[2023-04-04] MEDS: DILTIAZEM CD 240 MG CAP.ER.24H PO SCH (08:28)
[2023-04-04] MEDS: CLOTRIMAZOLE/BETAMETH 1-0.05% CREAM 45 GM TUBE TOPICAL SCH ×2 (08:28→20:16)
[2023-04-04] MEDS: DILTIAZEM CD 120 MG CAP.ER.24H PO SCH (08:28)
[2023-04-04] MEDS: METOPROLOL TARTRATE 50 MG TAB PO SCH ×2 (08:29→20:14)
[2023-04-04] MEDS: QUEtiapine 200 MG TAB PO SCH ×2 (08:29→20:13)
[2023-04-04] MEDS: lamoTRIgine 25 MG TAB PO SCH ×2 (08:29→20:14)
[2023-04-04] MEDS: PREGABALIN 75 MG CAP PO SCH (08:29)
[2023-04-04] MEDS: PANTOPRAZOLE 40 MG TABLET PO SCH (08:29)
[2023-04-04] MEDS: ACETAMINOPHEN TAB 325 MG TAB PO PRN ×2 (11:07→19:48)
--- NOTE | 2023-04-04 11:08 | P.PN ---
Progress Note - Text Progress Note Date: 04/04/23 Interval history: Patient was seen laying in his bed and was agreeable to speak to video games storywriter in the office today. Patient appears to have mild disheveled appearance today, has improving eye contact. He continues to ramble at times and spoke negatively about the residential and minimized what had occurred once again. States that he was having a headache earlier this morning and states that he has a history of migraines. He continues to have fairly poor insight and judgment today, irritability and impulsivity seem to be improving mildly. Claims that he slept better last night, feels somewhat tired this morning. He has not been going to many groups. Endorsing poor impulse control. he claims that he has chronic AH of hearing music for years, deneis any VH. denies any Si or HI at this time. Mental status examination: General Appearance: Patient appears to be older than stated age is alert, disheveled and in hospital gown, Patient appears to be in improving mildly hygiene and grooming. Behavior: Patient is seated without any agitated behavior. Mildly less irritable today. Speech: Patient's speech is pressured with circumstantially and tangentially, providing mildly Mood/Affect: Patient reports their mood is labil and irritable affect is congruent and constricted. somewhat expansive Suicidality/Homicidality: Patient denies having any homicidal ideation intent or plan. Denies any suicidal ideations intent or plan Perceptions: Patient denies any visual hallucinations and denies any auditory hallucinations Though content/process: There is evidence of expansiveness projection rationalization and intellectualization, improving mildly Memory and concentration: AOX3, grossly intact for the purposes of this session Judgment and insight: chronically poor/impulsive, improving mildly Diagnosis: schizoaffective disorder, bipolar type Somatoform disorder unspecified Intermittent explosive disorder nicotine dependence PLAN: -Patient is admitted under involuntary status to MHU for stabilization of psychiatric symptoms and safety. -Medications : increase lamictal 50 mg bid for mood stabilization, seroquel 200 mg daily + 600 mg qhs for mood stabilization/insomnia. depakote 1500 mg qhs for mood stabilization. -Ativan PRN for agitation/aggression -SW on board for discharge planning. -NRT - nicotine patch Encourage patient to participate in groups to work on coping skills. awaiting court and deferral date, filed for involuntary hospitalization.
[2023-04-04 13:00] LABS: Glucose,Whole Blood 285 mg/dL (70-110)
[2023-04-04 17:48] LABS: Glucose,Whole Blood 330 mg/dL (70-110)
[2023-04-04 20:12] LABS: Glucose,Whole Blood 302 mg/dL (70-110)
[2023-04-04] MEDS: DIVALPROEX ER 500 MG TAB.ER.24H PO SCH (20:12)
[2023-04-04] MEDS: INSULIN DETEMIR (LEVEMIR) 100 UNIT/ML SYR SQ SCH (20:15)
[2023-04-04] MEDS: EZETIMIBE 10 MG TAB PO SCH (20:18)
[2023-04-05 04:13] LABS: Glucose,Whole Blood 93 mg/dL (70-110)
[2023-04-05] MEDS: ACETAMINOPHEN TAB 325 MG TAB PO PRN ×3 (05:55→17:03)
[2023-04-05 07:36] LABS: Glucose,Whole Blood 137 mg/dL (70-110)
[2023-04-05] MEDS: ASPIRIN 81 MG PO SCH (07:53)
[2023-04-05] MEDS: PANTOPRAZOLE 40 MG TABLET PO SCH (07:53)
[2023-04-05] MEDS: METOPROLOL TARTRATE 50 MG TAB PO SCH ×2 (07:54→21:16)
[2023-04-05] MEDS: lamoTRIgine 25 MG TAB PO SCH ×2 (07:54→21:10)
[2023-04-05] MEDS: QUEtiapine 200 MG TAB PO SCH (07:54)
[2023-04-05] MEDS: INSULIN REGULAR 100 UNIT/ML VIAL (IM/SQ) SQ SCH ×4 (07:56→21:15)
[2023-04-05] MEDS: DILTIAZEM CD 240 MG CAP.ER.24H PO SCH (09:05)
[2023-04-05] MEDS: DILTIAZEM CD 120 MG CAP.ER.24H PO SCH (09:05)
[2023-04-05] MEDS: SYMBICORT 80-4.5 MCG INHALER (MHU) INHALATION SCH ×2 (09:12→21:11)
[2023-04-05] MEDS: AMMONIUM LACTATE 12% LOTION 225 GM BTL TOPICAL PRN ×3 (09:13→09:19)
[2023-04-05] MEDS: PREGABALIN 75 MG CAP PO SCH (09:17)
[2023-04-05] MEDS: CLOTRIMAZOLE/BETAMETH 1-0.05% CREAM 45 GM TUBE TOPICAL SCH ×2 (09:23→21:11)
--- NOTE | 2023-04-05 12:11 | P.PN ---
Progress Note - Text Progress Note Date: 04/05/23 Interval history: Patient was seen laying in his bed and was agreeable to speak to press writer today. Patient continues to focus on his reason for admission and states that he still upset at the lady that petitioned him. He claims that he disagree with her and was taking his medications. He continues to be fairly irritable during conversation. He states that he wants to go to court and is not planning on deferring with his trust and estates attorney. He states that "I want her to testify there in Court". He continues to be fairly isolated in his room, not going to many groups. States that he did not sleep well last night and wants to have his Seroquel all at nighttime. Claims have a fair appetite. he feels somewhat tired this morning. He has not been going to many groups. Endorsing poor impulse control. he claims that he has chronic AH of hearing music for years, deneis any VH. denies any Si or HI at this time. Mental status examination: General Appearance: Patient appears to be older than stated age is alert, disheveled and in hospital gown, Patient appears to be in improving mildly hygiene and grooming. Behavior: Patient is seated without any agitated behavior. Mildly irritable today. Speech: Patient's speech is pressured with circumstantially and tangentially, providing mildly Mood/Affect: Patient reports their mood is labil and irritable affect is congruent and constricted. Suicidality/Homicidality: Patient denies having any homicidal ideation intent or plan. Denies any suicidal ideations intent or plan Perceptions: Patient denies any visual hallucinations and he has chronic auditory hallucinations of music, which are unchanged. Though content/process: There is evidence of expansiveness projection rationalization and intellectualization, improving mildly. focused on the court process and his hearing. Memory and concentration: AOX3, grossly intact for the purposes of this session Judgment and insight: chronically poor/impulsive Diagnosis: schizoaffective disorder, bipolar type Somatoform disorder unspecified Intermittent explosive disorder nicotine dependence PLAN: -Patient is admitted under involuntary status to MHU for stabilization of psychiatric symptoms and safety. -Medications : continue lamictal 50 mg bid for mood stabilization, change seroquel 800 mg qhs for mood stabilization/insomnia. depakote 1500 mg qhs for mood stabilization. -Ativan PRN for agitation/aggression -SW on board for discharge planning. -NRT - nicotine patch Encourage patient to participate in groups to work on coping skills. awaiting court and deferral date. patient is not planning on deferring, will ask trust and estates attorney to come today if possible. will consider discharging prior to court if patient is able to get back to his shelter.
[2023-04-05 12:40] LABS: Glucose,Whole Blood 193 mg/dL (70-110)
[2023-04-05] MEDS: LORazepam 1 MG TAB PO PRN ×2 (13:12→17:06)
[2023-04-05 17:35] LABS: Glucose,Whole Blood 174 mg/dL (70-110)
[2023-04-05 20:18] LABS: Glucose,Whole Blood 304 mg/dL (70-110)
[2023-04-05] MEDS: DIVALPROEX ER 500 MG TAB.ER.24H PO SCH (21:10)
[2023-04-05] MEDS: EZETIMIBE 10 MG TAB PO SCH (21:10)
[2023-04-05] MEDS: QUEtiapine 400 MG TAB PO SCH (21:11)
[2023-04-05] MEDS: INSULIN DETEMIR (LEVEMIR) 100 UNIT/ML SYR SQ SCH (21:11)
[2023-04-06] MEDS: ACETAMINOPHEN TAB 325 MG TAB PO PRN ×2 (01:42→16:16)
[2023-04-06 07:43] LABS: Glucose,Whole Blood 98 mg/dL (70-110)
[2023-04-06] MEDS: INSULIN REGULAR 100 UNIT/ML VIAL (IM/SQ) SQ SCH ×4 (08:07→20:29)
[2023-04-06] MEDS: ASPIRIN 81 MG PO SCH (08:08)
[2023-04-06] MEDS: SYMBICORT 80-4.5 MCG INHALER (MHU) INHALATION SCH ×2 (08:08→20:28)
[2023-04-06] MEDS: DILTIAZEM CD 120 MG CAP.ER.24H PO SCH (08:09)
[2023-04-06] MEDS: lamoTRIgine 25 MG TAB PO SCH ×2 (08:09→20:31)
[2023-04-06] MEDS: METOPROLOL TARTRATE 50 MG TAB PO SCH ×2 (08:09→20:31)
[2023-04-06] MEDS: PREGABALIN 75 MG CAP PO SCH (08:09)
[2023-04-06] MEDS: DILTIAZEM CD 240 MG CAP.ER.24H PO SCH (08:09)
[2023-04-06] MEDS: PANTOPRAZOLE 40 MG TABLET PO SCH (08:09)
[2023-04-06] MEDS: CLOTRIMAZOLE/BETAMETH 1-0.05% CREAM 45 GM TUBE TOPICAL SCH ×2 (09:25→20:28)
--- NOTE | 2023-04-06 11:06 | P.PN ---
Progress Note - Text Progress Note Date: 04/06/23 Interval history: Patient was seen laying in his bed and was agreeable to speak to automatic typewriter inspector today. Patient claims that he is doing a bit better today, states that he slept much better today with the Seroquel. He claims that the medications have been helping so far improve his anxiety and also his move, he was less irritable today. He continues to mainly keep to himself while on the unit and not been going to many groups. Has been up for meals, has been taking his medications. He asked several questions about the court process and the deferral that will take place today. Claims have a fair appetite. he feels somewhat tired this morning. He has not been going to many groups. Endorsing poor impulse control. he claims that he has chronic AH of hearing music for years, deneis any VH. denies any Si or HI at this time. Mental status examination: General Appearance: Patient appears to be older than stated age is alert, disheveled and in hospital gown, Patient appears to be in improving mildly hygiene and grooming. Behavior: Patient is seated without any agitated behavior. less irritable today. Speech: Patient's speech is pressured with circumstantially, improviding mildly Mood/Affect: Patient reports their mood is improving, not irritable affect is congruent and constricted. Suicidality/Homicidality: Patient denies having any homicidal ideation intent or plan. Denies any suicidal ideations intent or plan Perceptions: Patient denies any visual hallucinations and he has chronic auditory hallucinations of music, which are unchanged. Though content/process: There is evidence of expansiveness projection rationalization and intellectualization, improving mildly. focused on the court process and his hearing. Memory and concentration: AOX3, grossly intact for the purposes of this session Judgment and insight: chronically poor/impulsive, improving Diagnosis: schizoaffective disorder, bipolar type Somatoform disorder unspecified Intermittent explosive disorder nicotine dependence PLAN: -Patient is admitted under involuntary status to MHU for stabilization of psychiatric symptoms and safety. -Medications : continue lamictal 50 mg bid for mood stabilization, seroquel 800 mg qhs for mood stabilization/insomnia. depakote 1500 mg qhs for mood stabilization. -Ativan PRN for agitation/aggression -SW on board for discharge planning. -NRT - nicotine patch Encourage patient to participate in groups to work on coping skills. awaiting court and deferral date set for today. patient apparently is not allowed to go back to his previous half-way and [facility] looking at other options for placement at this time.
[2023-04-06 12:44] LABS: Glucose,Whole Blood 134 mg/dL (70-110)
[2023-04-06 15:49] LABS: Glucose,Whole Blood 255 mg/dL (70-110)
[2023-04-06] MEDS: LORazepam 1 MG TAB PO PRN (16:16)
[2023-04-06 17:44] LABS: Glucose,Whole Blood 221 mg/dL (70-110)
[2023-04-06 19:53] LABS: Glucose,Whole Blood 221 mg/dL (70-110)
[2023-04-06] MEDS: EZETIMIBE 10 MG TAB PO SCH (20:26)
[2023-04-06] MEDS: DIVALPROEX ER 500 MG TAB.ER.24H PO SCH (20:27)
[2023-04-06] MEDS: INSULIN DETEMIR (LEVEMIR) 100 UNIT/ML SYR SQ SCH (20:28)
[2023-04-06] MEDS: QUEtiapine 400 MG TAB PO SCH (20:32)
[2023-04-06] MEDS: AMMONIUM LACTATE 12% LOTION 225 GM BTL TOPICAL PRN (20:38)
[2023-04-06] MEDS ORDERED: NON FORMULARY DRUG (Dulaglutide [Trulicity] 1.5 MG/0.5 ML Each) SQ SCH (21:00)
[2023-04-07 07:54] LABS: Glucose,Whole Blood 97 mg/dL (70-110)
[2023-04-07] MEDS: ASPIRIN 81 MG PO SCH (08:41)
[2023-04-07] MEDS: METOPROLOL TARTRATE 50 MG TAB PO SCH ×2 (08:41→21:30)
[2023-04-07] MEDS: PANTOPRAZOLE 40 MG TABLET PO SCH (08:41)
[2023-04-07] MEDS: PREGABALIN 75 MG CAP PO SCH (08:42)
[2023-04-07] MEDS: lamoTRIgine 25 MG TAB PO SCH ×2 (08:42→21:30)
[2023-04-07] MEDS: DILTIAZEM CD 120 MG CAP.ER.24H PO SCH (08:42)
[2023-04-07] MEDS: DILTIAZEM CD 240 MG CAP.ER.24H PO SCH (08:42)
[2023-04-07] MEDS: SYMBICORT 80-4.5 MCG INHALER (MHU) INHALATION SCH ×2 (08:43→21:31)
[2023-04-07] MEDS: CLOTRIMAZOLE/BETAMETH 1-0.05% CREAM 45 GM TUBE TOPICAL SCH ×2 (08:46→21:31)
[2023-04-07] MEDS: INSULIN REGULAR 100 UNIT/ML VIAL (IM/SQ) SQ SCH ×4 (08:47→21:32)
--- NOTE | 2023-04-07 11:12 | P.PN ---
Progress Note - Text Progress Note Date: 04/07/23 Interval history: Patient was seen laying in his bed and was agreeable to speak to selling underwriter today. Patient claims that he is doing a bit better today and today was fairly focused on discharge. he continues to have superficially poor insight and juydgment however this appears to be fairly chronic. states that he slept much better today with the Seroquel last night. He claims that the medications have been helping so far improve his anxiety and also his move, he was less irritable today. He continues to mainly keep to himself while on the unit and not been going to many groups. Has been up for meals, has been taking his medications. He did claim that he spoke with the director financial systems yesterday and signed the deferral however specifically stated that "I crossed out the words about me going to a [facility], I'm not going there". Claims have a fair appetite. he feels somewhat tired this morning. he claims that he has chronic AH of hearing music for years, deneis any VH. denies any Si or HI at this time. Mental status examination: General Appearance: Patient appears to be older than stated age is alert, disheveled and in hospital gown, Patient appears to be in improving mildly hygiene and grooming. Behavior: Patient is seated without any agitated behavior. less irritable today. Speech: Patient's speech is pressured with circumstantially, improviding mildly Mood/Affect: Patient reports their mood is improving, not irritable affect is congruent and constricted. Suicidality/Homicidality: Patient denies having any homicidal ideation intent or plan. Denies any suicidal ideations intent or plan Perceptions: Patient denies any visual hallucinations and he has chronic auditory hallucinations of music, which are unchanged. Though content/process: no delusions or paranoia. focused on the court process and also his discharge plan Memory and concentration: AOX3, grossly intact for the purposes of this session Judgment and insight: chronically poor/impulsive, improving Diagnosis: schizoaffective disorder, bipolar type Somatoform disorder unspecified Intermittent explosive disorder nicotine dependence PLAN: -Patient is admitted under involuntary status to [facility] for stabilization of psychiatric symptoms and safety. -Medications : continue lamictal 50 mg bid for mood stabilization, seroquel 800 mg qhs for mood stabilization/insomnia. depakote 1500 mg qhs for mood stabilization. -Ativan PRN for agitation/aggression - on board for discharge planning. -NRT - nicotine patch Encourage patient to participate in groups to work on coping skills. awaiting court and deferral date set for today. patient apparently is not allowed to go back to his previous residential and [facility] looking at other options for placement at this time. Will involve baudilio for meeting to decide on placement options.
[2023-04-07 12:48] LABS: Glucose,Whole Blood 129 mg/dL (70-110)
[2023-04-07 17:57] LABS: Glucose,Whole Blood 224 mg/dL (70-110)
[2023-04-07 19:53] LABS: Glucose,Whole Blood 323 mg/dL (70-110)
[2023-04-07] MEDS: DIVALPROEX ER 500 MG TAB.ER.24H PO SCH (21:30)
[2023-04-07] MEDS: QUEtiapine 400 MG TAB PO SCH (21:31)
[2023-04-07] MEDS: EZETIMIBE 10 MG TAB PO SCH (21:31)
[2023-04-07] MEDS: INSULIN DETEMIR (LEVEMIR) 100 UNIT/ML SYR SQ SCH (21:31)
[2023-04-08 02:38] LABS: Glucose,Whole Blood 77 mg/dL (70-110)
[2023-04-08 07:38] LABS: Glucose,Whole Blood 76 mg/dL (70-110)
[2023-04-08] MEDS: INSULIN REGULAR 100 UNIT/ML VIAL (IM/SQ) SQ SCH ×4 (08:16→20:59)
[2023-04-08] MEDS: ASPIRIN 81 MG PO SCH (09:04)
[2023-04-08] MEDS: DILTIAZEM CD 120 MG CAP.ER.24H PO SCH (09:04)
[2023-04-08] MEDS: DILTIAZEM CD 240 MG CAP.ER.24H PO SCH (09:05)
[2023-04-08] MEDS: PREGABALIN 75 MG CAP PO SCH (09:08)
[2023-04-08] MEDS: lamoTRIgine 25 MG TAB PO SCH ×2 (09:08→20:59)
[2023-04-08] MEDS: METOPROLOL TARTRATE 50 MG TAB PO SCH ×2 (09:09→20:59)
[2023-04-08] MEDS: PANTOPRAZOLE 40 MG TABLET PO SCH (09:09)
[2023-04-08] MEDS: MAG HYDROX/AL HYDROX/SIMETH 30 ML CUP PO PRN (09:10)
[2023-04-08] MEDS: SYMBICORT 80-4.5 MCG INHALER (MHU) INHALATION SCH ×2 (09:13→21:00)
[2023-04-08] MEDS: CLOTRIMAZOLE/BETAMETH 1-0.05% CREAM 45 GM TUBE TOPICAL SCH ×2 (09:14→20:59)
[2023-04-08] MEDS: ACETAMINOPHEN TAB 325 MG TAB PO PRN (11:39)
--- NOTE | 2023-04-08 12:53 | P.PN ---
Progress Note - Text Progress Note Date: 04/08/23 Interval history: Patient was seen in his roomand was directable and agreeable to speak with expert medical writer.states that he is having auditory hallucinations. He hears music, but states that this is close to his baseline. He states that this is bothering him.. At this time patient denies any suicidal or homicidal ideations intent or plan. Denies visual hallucinations. Patient denies any side effects from the medications and has been compliant with meds. Mental status exam: General Appearance: [Patient appears to be stated age is alert, directable, and cooperative.] Behavior: [No agitated behavior. Patient is calm and directable] Speech: Patient's speech is fluent and nonpressured. Mood/Affect: Mood is "okay", affect is congruent and full range Suicidality/Homicidality: Patient denies having any suicidal or homicidal ideation intent or plan. Perceptions: Patient denies any auditory or visual hallucinations. Though content/process: [There is no evidence of any delusional thought content and thought process is linear and goal-directed.] Memory and concentration: AOX3, grossly intact for the purposes of this session Judgment and insight: improving mildly Assessment/Plan: Continue with current diagnosis. Patient continues to meet criteria for inpatient psychiatric admission for symptom stabilization and safety.[Patient will be maintained on current psychotropic medication regimen.] Monitor for medication compliance and for any psychotropic medication side effects. Will continue to monitor ongoing response to treatment. Encouraged participation in milieu.
[2023-04-08 13:10] LABS: Glucose,Whole Blood 281 mg/dL (70-110)
[2023-04-08 17:40] LABS: Glucose,Whole Blood 250 mg/dL (70-110)
[2023-04-08 20:09] LABS: Glucose,Whole Blood 215 mg/dL (70-110)
[2023-04-08] MEDS: QUEtiapine 400 MG TAB PO SCH (20:58)
[2023-04-08] MEDS: EZETIMIBE 10 MG TAB PO SCH (20:59)
[2023-04-08] MEDS: INSULIN DETEMIR (LEVEMIR) 100 UNIT/ML SYR SQ SCH (20:59)
[2023-04-08] MEDS: DIVALPROEX ER 500 MG TAB.ER.24H PO SCH (20:59)
[2023-04-08] MEDS: LORazepam 1 MG TAB PO PRN (21:02)
[2023-04-09 07:48] LABS: Glucose,Whole Blood 112 mg/dL (70-110)
[2023-04-09] MEDS: DILTIAZEM CD 240 MG CAP.ER.24H PO SCH (08:51)
[2023-04-09] MEDS: PANTOPRAZOLE 40 MG TABLET PO SCH (08:51)
[2023-04-09] MEDS: DILTIAZEM CD 120 MG CAP.ER.24H PO SCH (08:51)
[2023-04-09] MEDS: METOPROLOL TARTRATE 50 MG TAB PO SCH ×2 (08:51→21:17)
[2023-04-09] MEDS: lamoTRIgine 25 MG TAB PO SCH ×2 (08:52→21:17)
[2023-04-09] MEDS: ASPIRIN 81 MG PO SCH (08:52)
[2023-04-09] MEDS: SYMBICORT 80-4.5 MCG INHALER (MHU) INHALATION SCH ×2 (08:52→21:17)
[2023-04-09] MEDS: PREGABALIN 75 MG CAP PO SCH (08:52)
[2023-04-09] MEDS: ACETAMINOPHEN TAB 325 MG TAB PO PRN (08:55)
[2023-04-09] MEDS: LORazepam 1 MG TAB PO PRN (08:55)
[2023-04-09] MEDS: INSULIN REGULAR 100 UNIT/ML VIAL (IM/SQ) SQ SCH ×4 (08:56→21:18)
[2023-04-09] MEDS: CLOTRIMAZOLE/BETAMETH 1-0.05% CREAM 45 GM TUBE TOPICAL SCH ×2 (08:57→21:17)
[2023-04-09] MEDS ORDERED: IBUPROFEN 600 MG TAB PO PRN (09:27)
--- NOTE | 2023-04-09 09:55 | P.PN ---
Progress Note - Text Interval History: Patient was seen [wandering the hallways] and was directable and agreeable to speak with senior copywriter in the office. States that he cares auditory hallucinations in the form of music today. Because the music sounds good, the auditory hallucinations are not distressing for him today. At this time patient denies any suicidal or homical ideations, intent or plan. Patient denies visual hallucinations and denies any paranoia or delusions. Patient denies any side effects from the medications and has been compliant with meds. Mental Status Exam: General Appearance: [Patient appears to be stated age is alert, directable, and cooperative.] Behavior: cooperative, calm Speech: Patient's speech is fluent and nonpressured. Mood/Affect: Mood is improving mildly, affect is congruent and constricted. Suicidality/Homicidality: Patient denies having any suicidal or homicidal ideation intent or plan. Perceptions: Patient denies any visual hallucinations, reports AH Though content/process: [There is no evidence of any delusional thought content and thought process is linear and goal-directed.] Memory and concentration: AOX3, grossly intact for the purposes of this session Judgment and insight: Improving mildly Assessment/Plan: no changes
[2023-04-09 12:42] LABS: Glucose,Whole Blood 149 mg/dL (70-110)
[2023-04-09 17:38] LABS: Glucose,Whole Blood 134 mg/dL (70-110)
[2023-04-09 19:46] LABS: Glucose,Whole Blood 196 mg/dL (70-110)
[2023-04-09] MEDS: DIVALPROEX ER 500 MG TAB.ER.24H PO SCH (21:17)
[2023-04-09] MEDS: QUEtiapine 400 MG TAB PO SCH (21:17)
[2023-04-09] MEDS: EZETIMIBE 10 MG TAB PO SCH (21:17)
[2023-04-09] MEDS: AMMONIUM LACTATE 12% LOTION 225 GM BTL TOPICAL PRN (21:18)
[2023-04-09] MEDS: INSULIN DETEMIR (LEVEMIR) 100 UNIT/ML SYR SQ SCH (21:18)
[2023-04-09 22:49] LABS: Glucose,Whole Blood 173 mg/dL (70-110)
[2023-04-10] MEDS: lamoTRIgine 25 MG TAB PO SCH ×2 (07:38→21:23)
[2023-04-10] MEDS: METOPROLOL TARTRATE 50 MG TAB PO SCH ×2 (07:38→21:23)
[2023-04-10] MEDS: DILTIAZEM CD 240 MG CAP.ER.24H PO SCH (07:38)
[2023-04-10] MEDS: DILTIAZEM CD 120 MG CAP.ER.24H PO SCH (07:38)
[2023-04-10] MEDS: PANTOPRAZOLE 40 MG TABLET PO SCH (07:38)
[2023-04-10] MEDS: ASPIRIN 81 MG PO SCH (07:38)
[2023-04-10 07:44] LABS: Glucose,Whole Blood 86 mg/dL (70-110)
[2023-04-10] MEDS: INSULIN REGULAR 100 UNIT/ML VIAL (IM/SQ) SQ SCH ×5 (08:00→21:22)
[2023-04-10] MEDS: SYMBICORT 80-4.5 MCG INHALER (MHU) INHALATION SCH ×2 (08:01→21:22)
[2023-04-10] MEDS: CLOTRIMAZOLE/BETAMETH 1-0.05% CREAM 45 GM TUBE TOPICAL SCH ×2 (08:05→21:23)
[2023-04-10] MEDS: PREGABALIN 75 MG CAP PO SCH (08:05)
--- NOTE | 2023-04-10 09:53 | P.PN ---
Progress Note - Text Progress Note Date: 04/10/23 Interval history: Patient was seen laying in his bed and was agreeable to speak to promotion writer today. Patient appears to be mildly more irritable today. He states that he did not sleep well last night. He continues to focus on what the documentation states about him not taking medications and also accuse promotion writer of putting on the certificate that "I'm not able to take care of myself". He was somewhat argumentative today. He continues to be keeping himself on the unit. As stopping going to groups. Has been up for meals, has been taking his medications. Claims have a fair appetite. he feels somewhat tired this morning due to lack of sleep. he claims that he has chronic AH of hearing music for years, no change in this. denies any VH. denies any Si or HI at this time. Mental status examination: General Appearance: Patient appears to be older than stated age is alert, disheveled and in hospital gown, Patient appears to be in improving mildly hygiene and grooming. Behavior: Patient is seated without any agitated behavior. irritable today. Somewhat argumentative. Speech: Patient's speech is pressured with circumstantially, improviding mildly Mood/Affect: Patient reports their mood is improving, irritable affect is congruent and constricted. Suicidality/Homicidality: Patient denies having any homicidal ideation intent or plan. Denies any suicidal ideations intent or plan Perceptions: Patient denies any visual hallucinations and he has chronic auditory hallucinations of music, which are unchanged. Though content/process: no delusions or paranoia. focused on the court process and also his discharge plan Memory and concentration: AOX3, grossly intact for the purposes of this session Judgment and insight: chronically poor/impulsive, improving Diagnosis: schizoaffective disorder, bipolar type Somatoform disorder unspecified Intermittent explosive disorder nicotine dependence PLAN: -Patient is admitted under involuntary status to [facility] for stabilization of psychiatric symptoms and safety. -Medications : continue lamictal 50 mg bid for mood stabilization, seroquel 800 mg qhs for mood stabilization/insomnia. depakote 1500 mg qhs for mood stabilization. -Ativan PRN for agitation/aggression -SW on board for discharge planning. -NRT - nicotine patch Encourage patient to participate in groups to work on coping skills. awaiting court and deferral date set for today. patient apparently is not allowed to go back to his previous halfway and [facility] looking at other options for placement at this time. Will involve baudilio for meeting to decide on placement options.
[2023-04-10] MEDS: ACETAMINOPHEN TAB 325 MG TAB PO PRN ×2 (10:39→19:50)
[2023-04-10] MEDS: LORazepam 1 MG TAB PO PRN ×2 (10:41→19:50)
[2023-04-10 13:00] LABS: Glucose,Whole Blood 192 mg/dL (70-110)
[2023-04-10 17:50] LABS: Glucose,Whole Blood 220 mg/dL (70-110)
[2023-04-10 19:50] LABS: Glucose,Whole Blood 236 mg/dL (70-110)
[2023-04-10] MEDS: INSULIN DETEMIR (LEVEMIR) 100 UNIT/ML SYR SQ SCH (21:22)
[2023-04-10] MEDS: DIVALPROEX ER 500 MG TAB.ER.24H PO SCH (21:23)
[2023-04-10] MEDS: EZETIMIBE 10 MG TAB PO SCH (21:23)
[2023-04-10] MEDS: QUEtiapine 400 MG TAB PO SCH (21:23)
[2023-04-11] MEDS: LORazepam 1 MG TAB PO PRN ×2 (00:37→20:35)
[2023-04-11] MEDS: ACETAMINOPHEN TAB 325 MG TAB PO PRN (00:37)
[2023-04-11 07:53] LABS: Glucose,Whole Blood 208 mg/dL (70-110)
[2023-04-11] MEDS: INSULIN REGULAR 100 UNIT/ML VIAL (IM/SQ) SQ SCH ×4 (08:46→20:34)
[2023-04-11] MEDS: CLOTRIMAZOLE/BETAMETH 1-0.05% CREAM 45 GM TUBE TOPICAL SCH ×2 (08:47→20:33)
[2023-04-11] MEDS: SYMBICORT 80-4.5 MCG INHALER (MHU) INHALATION SCH ×2 (08:47→20:34)
[2023-04-11] MEDS: ASPIRIN 81 MG PO SCH (08:47)
[2023-04-11] MEDS: DILTIAZEM CD 120 MG CAP.ER.24H PO SCH (08:48)
[2023-04-11] MEDS: METOPROLOL TARTRATE 50 MG TAB PO SCH ×2 (08:48→20:33)
[2023-04-11] MEDS: PANTOPRAZOLE 40 MG TABLET PO SCH (08:48)
[2023-04-11] MEDS: lamoTRIgine 25 MG TAB PO SCH ×2 (08:48→20:33)
[2023-04-11] MEDS: DILTIAZEM CD 240 MG CAP.ER.24H PO SCH (08:48)
[2023-04-11] MEDS: PREGABALIN 75 MG CAP PO SCH (08:49)
--- NOTE | 2023-04-11 11:29 | P.PN ---
Progress Note - Text Progress Note Date: 04/11/23 Interval history: Patient was seen laying in his bed and was agreeable to speak to health science writer today. he claims that he was "catching up on my sleep". Patient appears to be more coopertaive today, little irritability. He was fairly concrete with his responses. He claims that he is able sleep fairly last night. He continues to remain a keep himself while on the unit. He was not very argumentative today with health science writer. We spoke more about placement and about the decision from [facility] and his guardian and patient states that he is willing to go to [facility]. Has not been going to groups. Has been up for meals, has been taking his medications. Claims have a fair appetite. he claims that he has chronic AH of hearing music for years, no change in this. denies any VH. denies any Si or HI at this time. Mental status examination: General Appearance: Patient appears to be older than stated age is alert, disheveled and in hospital gown, Patient appears to be in improving mildly hygiene and grooming. Behavior: Patient is seated without any agitated behavior. irritable today. more cooperative Speech: Patient's speech is pressured with circumstantially, improviding mildly Mood/Affect: Patient reports their mood is improving, less irritable affect is congruent and constricted. Suicidality/Homicidality: Patient denies having any homicidal ideation intent or plan. Denies any suicidal ideations intent or plan Perceptions: Patient denies any visual hallucinations and he has chronic audit ory hallucinations of music, which are unchanged. Though content/process: no delusions or paranoia. focused on the court process and also his discharge plan Memory and concentration: AOX3, grossly intact for the purposes of this session Judgment and insight: chronically poor/impulsive, improving Diagnosis: schizoaffective disorder, bipolar type Somatoform disorder unspecified Intermittent explosive disorder nicotine dependence PLAN: -Patient is admitted under involuntary status to [facility] for stabilization of psychiatric symptoms and safety. -Medications : continue lamictal 50 mg bid for mood stabilization, seroquel 800 mg qhs for mood stabilization/insomnia. depakote 1500 mg qhs for mood stabilization. check vpa level tonight. -Ativan PRN for agitation/aggression -SW on board for discharge planning -NRT - nicotine patch Encourage patient to participate in groups to work on coping skills. patient deferred with his state attorney. patient apparently has a bed at [facility] and likely a discharge tomorrow. meeting today with milan astudillo.
[2023-04-11 12:47] LABS: Glucose,Whole Blood 149 mg/dL (70-110)
[2023-04-11 17:55] LABS: Glucose,Whole Blood 212 mg/dL (70-110)
[2023-04-11 20:18] LABS: Glucose,Whole Blood 236 mg/dL (70-110)
[2023-04-11] MEDS: QUEtiapine 400 MG TAB PO SCH (20:33)
[2023-04-11] MEDS: EZETIMIBE 10 MG TAB PO SCH (20:33)
[2023-04-11] MEDS: INSULIN DETEMIR (LEVEMIR) 100 UNIT/ML SYR SQ SCH (20:33)
[2023-04-11] MEDS: DIVALPROEX ER 500 MG TAB.ER.24H PO SCH (20:33)
[2023-04-12 07:01] VITALS: BP 133/78; PULSE 52; RESP 14; TEMP 97.3
[2023-04-12 07:55] LABS: Glucose,Whole Blood 163 mg/dL (70-110)
[2023-04-12] MEDS: INSULIN REGULAR 100 UNIT/ML VIAL (IM/SQ) SQ SCH ×2 (07:56→12:50)
[2023-04-12] MEDS: DILTIAZEM CD 120 MG CAP.ER.24H PO SCH (08:26)
[2023-04-12] MEDS: PREGABALIN 75 MG CAP PO SCH (08:26)
[2023-04-12] MEDS: DILTIAZEM CD 240 MG CAP.ER.24H PO SCH (08:26)
[2023-04-12] MEDS: ASPIRIN 81 MG PO SCH (08:27)
[2023-04-12] MEDS: lamoTRIgine 25 MG TAB PO SCH (08:27)
[2023-04-12] MEDS: PANTOPRAZOLE 40 MG TABLET PO SCH (08:27)
[2023-04-12] MEDS: METOPROLOL TARTRATE 50 MG TAB PO SCH (08:27)
[2023-04-12] MEDS: SYMBICORT 80-4.5 MCG INHALER (MHU) INHALATION SCH (08:27)
[2023-04-12] MEDS: CLOTRIMAZOLE/BETAMETH 1-0.05% CREAM 45 GM TUBE TOPICAL SCH (08:30)
--- NOTE | 2023-04-12 10:57 | P.DS ---
Providers Date of admission: 04/01/23 14:18 Expected date of discharge: 04/12/23 Attending physician: Dino Parson MD Consults: 04/01/23 14:22 Consult Physician Routine Consulting Provider: Celio Friedman Consult Reason/Comments: medical management Do you want consulting provider notified?: Yes Primary care physician: Stated None - Discharge Diagnosis(es) (1) Schizoaffective disorder, bipolar type Current Visit: Yes Status: Acute Priority: High (2) Somatoform disorder, unspecified Current Visit: Yes Status: Acute Priority: Medium (3) Intermittent explosive disorder Current Visit: Yes Status: Acute Priority: Medium (4) Nicotine dependence Current Visit: Yes Status: Acute Priority: Low Hospital Course: Admission HPI: Admission note was completed by Dr Ibanez "[This is a psychiatric evaluation on Alonso Summers who is a 58-year-old male and a currently residing in a longterm Patient is a very poor historian due to his rambling thoughts circumstantiality and tangentiality He remains very focused on his somatic complains He also demands that he be sent to [facility] and that this is just a small hospital that doesn't accomplish anything He states that he is tired of being at the longterm where he is been staying for about 2 months and that is not being treated well He admits that he is being switched from place to place for a long time and that he just can't find the right place He says that they're trying to get rid of him and also that they would not take him back He has much difficulty focusing on any questions and continues to ramble is on concerns and his somatic concerns He states that he has problems with his teeth with his back with his hands chest and his scrotum where he has a rash He says that he is not being provided his medications as needed Following is a mix up from the assessment done in the ER: year-old male presents to the emergency department for psychiatric evaluation. He resides in a longterm. It is reported on the sheet that the patient woke up 2 hours late for his morning meds. He finally woke up he asked for them and the nursing staff would not distribute them as they state he was too far past medication administration. Patient became angry. He was threatening staff and threw a cup down. They called police. He does arrive and is petitioned. Denies any suicidal thoughts. He claims that the facility is not giving him his insulin. No other alleviating, precipitating or modifying factors]" Hospital course: Upon admission to the unit patient was [admitted involuntarily on a petition and certificate and a second certificate was completed and faxed with the courts]. Patient ended up signing deferral with his defense attorney and agreeable to continue on with treatment. Patient mainly kept to himself while on the unity however with time and treatment he got along well with other patients on the unit and followed unit protocol. Patient was compliant with the medications and denied any side effects throughout hospital course. Patient was started on lamictal and increased to a dose of 100 mg daily for mood stabilization, seroquel 800 mg qhs for insomnia/psychosis, depakote 1500 mg qhs for mood stabilization. vpa level was checked on 04/11 and was 75.1. Patient spoke of [his] stressors hoiwevr did not show up to any group or activities. Patient was also seen by medical team for history and physical exam. Throughout the course of the hospitalization patient gradually improved with regards to [mood, anxiety], impulse control/irritability, psychosis, sleep and [returned back to their baseline level of functioning]. On the day of discharge patient denied any suicidal or homicidal ideations intent or plan denied any auditory or visual hallucinations. Patient endorsed wanting to live to find housing and for his life. The patient denied any access to guns or weapons. Patient denied any paranoia and did not endorse any delusions. Patient does [not] have a significant history of subst ance abuse [and] was counseled on abstaining from all substances including alcohol and marijuana. Patient was also counseled on the medications and need for regular compliance and was encouraged to follow-up with their outpatient appointment for mental health and also for primary care. Patient was able to get into [facility] today for discharge/placement and will be followed closely by [facility] [address]. Mental status exam: General Appearance: Patient appears to be thin, wearing hospital gown, stated age is alert, pleasant, and cooperative. Patient is in no acute distress and has improved hygiene and grooming Behavior: Patient is calmly seated without any agitated behavior. Speech: Patient's speech is fluent and nonpressured. rambles at times. Mood/Affect: Patient reports their mood is "[alright]", affect is congruent and constricted Suicidality/Homicidality: Patient denies having any suicidal or homicidal ideation intent or plan. Perceptions: Patient denies any auditory or visual hallucinations. Though content/process: There is no evidence of any delusional thought content and thought process is linear and goal-directed. concrete. Memory and concentration: AOX3, grossly intact for the purposes of this session. Can spell "WORLD" backwards correctly. Judgment and insight: [chronically poor, however has] improved with guarded prognosis Impression: Schizoaffective disorder Bipolar type somatoform disorder unspecified intermittent explosive disorder [Nicotine dependence] Plan: -Continue with discharge today as patient has improved and stabilized psychiatrically and is not currently an imminent threat to [himself] and/or others. [Patient will remain at chronically elevated risk for harm to self and/or others due to his impulsivity and chronic mental illness.] -Continue medications: lamictal 100 mg daily for mood stabilization, seroquel 800 mg qhs for insomnia/psychosis, depakote 1500 mg qhs for mood stabilization -Patient was counseled on the need for medication compliance and appropriate follow-up at mental health and also primary care for medical issues. Patient verbalized understanding and agreed. -Social work to [arrange for and conduct family meeting to ensure safety upon discharge and answer any questions/concerns.] Social work also to arrange for patients follow up appointments [with [facility]] for psychiatric care along with follow up with primary care provider. -Patient counseled on abstaining from recreational drugs and marijuana and alcohol. Was informed/educated on the adverse effects on their physical and mental health. [Patient verbally agreed and understood]. -Patient was instructed to return to the hospital or seek immediate medical care if their psychiatric or medical symptoms do worsen or reoccur. Allergies Allergy/AdvReac Type Severity Reaction Status Date / Time amlodipine Allergy Unknown Verified 04/01/23 13:03 aripiprazole [From Abilify] Allergy Unknown Verified 04/01/23 13:03 atorvastatin [From Lipitor] Allergy Unknown Verified 04/01/23 13:03 benztropine [From Cogentin] Allergy Unknown Verified 04/01/23 13:03 chlorpromazine Allergy Unknown Verified 04/01/23 13:03 [From Thorazine] fluphenazine [From Prolixin] Allergy Unknown Verified 04/01/23 13:03 gabapentin Allergy Unknown Verified 04/01/23 13:03 haloperidol [From Haldol] Allergy Unknown Verified 04/01/23 13:03 insulin glargine Allergy Unknown Verified 04/01/23 13:03 [From Lantus] metformin Allergy Unknown Verified 04/01/23 13:03 olanzapine [From Zyprexa] Allergy Unknown Verified 04/01/23 13:03 paliperidone [From Invega] Allergy Unknown Verified 04/01/23 13:03 thiothixene Allergy Unknown Verified 04/01/23 13:03 ziprasidone [From Geodon] Allergy Unknown Verified 04/01/23 13:03 ABILIFY INJECTION Allergy Unknown Uncoded 04/01/23 13:03 INVEGA INJECTION Allergy Unknown Uncoded 04/01/23 13:03 Laboratory Results WBC 9.5 k/uL (3.8-10.6) 04/01/23 14:57 RBC 5.32 m/uL (4.30-5.90) 04/01/23 14:57 Hgb 18.7 gm/dL (13.0-17.5) H 04/01/23 14:57 Hct 52.8 % (39.0-53.0) 04/01/23 14:57 MCV 99.1 fL (80.0-100.0) 04/01/23 14:57 MCH 35.1 pg (25.0-35.0) H 04/01/23 14:57 MCHC 35.4 g/dL (31.0-37.0) 04/01/23 14:57 RDW 12.1 % (11.5-15.5) 04/01/23 14:57 Plt Count 121 k/uL (150-450) L 04/01/23 14:57 MPV 7.7 04/01/23 14:57 Neutrophils % 50 % 04/01/23 14:57 Lymphocytes % 38 % 04/01/23 14:57 Monocytes % 9 % 04/01/23 14:57 Eosinophils % 1 % 04/01/23 14:57 Basophils % 1 % 04/01/23 14:57 Neutrophils # 4.8 k/uL (1.3-7.7) 04/01/23 14:57 Lymphocytes # 3.6 k/uL (1.0-4.8) 04/01/23 14:57 Monocytes # 0.8 k/uL (0-1.0) 04/01/23 14:57 Eosinophils # 0.1 k/uL (0-0.7) 04/01/23 14:57 Basophils # 0.1 k/uL (0-0.2) 04/01/23 14:57 Sodium 138 mmol/L (137-145) 04/01/23 14:57 Potassium 4.0 mmol/L (3.5-5.1) 04/01/23 14:57 Chloride 102 mmol/L (98-107) 04/01/23 14:57 Carbon Dioxide 26 mmol/L (22-30) 04/01/23 14:57 Anion Gap 10 mmol/L 04/01/23 14:57 BUN 29 mg/dL (9-20) H 04/01/23 14:57 Creatinine 0.74 mg/dL (0.66-1.25) 04/01/23 14:57 Est GFR (CKD-EPI)AfAm >90 (>60 ml/min/1.73 sqM) 04/01/23 14:57 Est GFR (CKD-EPI)NonAf >90 (>60 ml/min/1.73 sqM) 04/01/23 14:57 Glucose 207 mg/dL (74-99) H 04/01/23 14:57 POC Glucose (mg/dL) 163 mg/dL (70-110) H 04/12/23 07:53 POC Glu Acid Pumper ID 04/12/23 07:[address] Glu mg/dL 203 mg/dL 04/01/23 14:57 Hemoglobin A1c 8.7 % (<=6.0) H 04/01/23 14:57 Calcium 9.4 mg/dL (8.4-10.2) 04/01/23 14:57 Total Bilirubin 0.6 mg/dL (0.2-1.3) 04/01/23 14:57 AST 23 U/L (17-59) 04/01/23 14:57 ALT 21 U/L (4-49) 04/01/23 14:57 Alkaline Phosphatase 71 U/L (38-126) 04/01/23 14:57 Total Protein 7.1 g/dL (6.3-8.2) 04/01/23 14:57 Albumin 4.3 g/dL (3.5-5.0) 04/01/23 14:57 Triglycerides 211.00 mg/dL (0.00-149.00) H 04/01/23 14:57 Cholesterol 123.00 mg/dL (0.00-200.00) 04/01/23 14:57 LDL Cholesterol, Calc 47.7 mg/dL (0.0-131.0) 04/01/23 14:57 VLDL Cholesterol, Calc 42.20 mg/dL (5.00-40.00) H 04/01/23 14:57 HDL Cholesterol 33.10 mg/dL (40.00-60.00) L 04/01/23 14:57 Cholesterol/HDL Ratio 3.72 Ratio 04/01/23 14:57 TSH 1.770 mIU/L (0.465-4.680) 04/06/23 12:11 Urine Color Light Yellow 04/01/23 13:48 Urine Appearance Clear (Clear) 04/01/23 13:48 Urine pH 5.5 (5.0-8.0) 04/01/23 13:48 Ur Specific [place] 1.031 (1.001-1.035) 04/01/23 13:48 Urine Protein Negative (Negative) 04/01/23 13:48 Urine Glucose (UA) 4+ (Negative) H 04/01/23 13:48 Urine Ketones 1+ (Negative) H 04/01/23 13:48 Urine Blood Negative (Negative) 04/01/23 13:48 Urine Nitrite Negative (Negative) 04/01/23 13:48 Urine Bilirubin Negative (Negative) 04/01/23 13:48 Urine Urobilinogen <2.0 mg/dL (<2.0) 04/01/23 13:48 Ur Leukocyte Esterase Negative (Negative) 04/01/23 13:48 Urine Opiates Screen Not Detected (NotDetected) 04/01/23 13:48 Ur Oxycodone Screen Not Detected (NotDetected) 04/01/23 13:48 Urine Methadone Screen Not Detected (NotDetected) 04/01/23 13:48 Ur Propoxyphene Screen Not Detected (NotDetected) 04/01/23 13:48 Ur Barbiturates Screen Not Detected (NotDetected) 04/01/23 13:48 Valproic Acid 75.1 ug/mL 04/11/23 18:26 U Tricyclic Antidepress Detected (NotDetected) H 04/01/23 13:48 Ur Phencyclidine Scrn Not Detected (NotDetected) 04/01/23 13:48 Ur Amphetamines Screen Not Detected (NotDetected) 04/01/23 13:48 U Methamphetamines Scrn Not Detected (NotDetected) 04/01/23 13:48 U Benzodiazepines Scrn Detected (NotDetected) H 04/01/23 13:48 Urine Cocaine Screen Not Detected (NotDetected) 04/01/23 13:48 U Marijuana (THC) Screen Not Detected (NotDetected) 04/01/23 13:48 Coronavirus (PCR) Not Detected (Not Detectd) 04/01/23 12:25 Vital Signs Temp 97.3 F L 04/12/23 06:34 Pulse 52 L 04/12/23 06:34 Resp 14 04/12/23 06:34 BP 133/78 04/12/23 06:34 Pulse Ox 97 04/12/23 06:34 FiO2 Patient Condition at Discharge: Stable Plan - Discharge Summary New Discharge Prescriptions: New lamoTRIgine [LaMICtal] 100 mg PO DAILY 30 Days #30 tab Ibuprofen [Motrin] 600 mg PO Q8H PRN 30 Days #90 tab PRN Reason: Moderate To Severe Pain (4-10) Pantoprazole [Protonix] 40 mg PO DAILY@0800 30 Days #30 tab QUEtiapine [SEROquel] 800 mg PO HS 30 Days #60 tab Continue Pregabalin [Lyrica] 75 mg PO DAILY@0800 Acetaminophen [Tylenol Arthritis] 650 mg PO Q8H PRN PRN Reason: Pain Carbamide Peroxide [Debrox Otic] 4 drops BOTH EARS BID PRN PRN Reason: wax Albuterol Sulfate [Ventolin HFA] 1 - 2 puff INHALATION RT-Q6H PRN #1 each PRN Reason: Shortness Of Breath Hydrocortisone Cream [Hydrocortisone 2.5% Cream] 1 applic TOPICAL TID PRN PRN Reason: Skin Irritation Artificial Tears-Hypromellose [Artificial Tear Drops] 1 - 2 drops BOTH EYES BID PRN PRN Reason: DRY EYES Meclizine [Antivert] 12.5 mg PO BID PRN PRN Reason: DIZZINESS Insulin Detemir [Levemir Flextouch] 70 unit SQ HS Dulaglutide [Trulicity] 1.5 mg SQ TH@2099 Insulin Regular, Human [Novolin R Flexpen] 7 units SQ ACHS Diltiazem Cd [Cardizem CD] 240 mg PO DAILY@0800 30 Days #30 cap guaiFENesin-DM 100-10MG/5ML [Robitussin DM] 10 ml PO Q4H PRN PRN Reason: Cough guaiFENesin-DM 600/30MG [Mucinex Dm] 2 tab PO Q12HR PRN PRN Reason: Cold Symptoms [place]-3 Fatty Acids [[place]-3] 1,000 mg PO BID@0800,2099 Ammonium Lactate Lotion [Lac-Hydrin 12% Lotion] 1 applic TOPICAL BID PRN 30 Days #1 each PRN Reason: Dry Skin Clotrimazole/Betameth Cream [Lotrisone] 1 applic TOPICAL BID@799,2099 30 Days #1 each Changed Divalproex ER [Depakote ER] 1,500 mg PO HS@2099 30 Days #90 tab Aspirin EC [Ecotrin Low Dose] 81 mg PO DAILY@08 30 Days #30 tab Metoprolol Tartrate [Lopressor] 50 mg PO BID@0800,2099 30 Days #60 tab amantadine HCL [Symmetrel] 100 mg PO TID@0800,1200,2099 30 Days #90 cap Ezetimibe [Zetia] 10 mg PO HS@2099 30 Days #30 tab Fluticasone Propion/Salmeterol [Advair 250-50 Diskus] 1 puff INHALATION RT- BID@799,2099 30 Days #1 each Diltiazem Cd [Cardizem CD] 120 mg PO DAILY@0800 30 Days #30 cap Discontinued Mag Hydrox/Aluminum Hyd/Simeth [Mylanta Maximum Strength Liq] 5 ml PO Q8H PRN PRN Reason: Gi Upset Hydrocortisone Pr Cream [Proctosol-Hc 2.5%] 1 applic RECTAL DAILY PRN PRN Reason: Inflammation QUEtiapine FUMARATE [SEROquel XR] 800 mg PO HS@2100 LORazepam [Ativan] 1 mg PO DAILY PRN PRN Reason: ACUTE ANXIETY lamoTRIgine [LaMICtal] 50 mg PO DAILY@0800 Prochlorperazine [Compazine] 10 mg PO Q8H PRN PRN Reason: Nausea LORazepam [Ativan] 1 mg PO HS@2100 Insulin Regular, Human [Novolin R Flexpen] See Protocol SQ ACHS Omeprazole 20 mg PO DAILY@0800 Discharge Medication List Pregabalin [Lyrica] 75 mg PO DAILY@0800 04/20/18 [History] Acetaminophen [Tylenol Arthritis] 650 mg PO Q8H PRN 12/02/19 [History] Carbamide Peroxide [Debrox Otic] 4 drops BOTH EARS BID PRN 12/08/21 [History] Albuterol Sulfate [Ventolin HFA] 1 - 2 puff INHALATION RT-Q6H PRN #1 each 12/23/21 [Rx] Artificial Tears-Hypromellose [Artificial Tear Drops] 1 - 2 drops BOTH EYES BID PRN 04/01/23 [History] Dulaglutide [Trulicity] 1.5 mg SQ TH@2100 04/01/23 [History] Hydrocortisone Cream [Hydrocortisone 2.5% Cream] 1 applic TOPICAL TID PRN [History] Insulin Detemir [Levemir Flextouch] 70 unit SQ HS 04/01/23 [History] Insulin Regular, Human [Novolin R Flexpen] 7 units SQ ACHS 04/01/23 [History] Meclizine [Antivert] 12.5 mg PO BID PRN 04/01/23 [History] [place]-3 Fatty Acids [[place]-3] 1,000 mg PO BID@0800,2100 04/01/23 [History] guaiFENesin-DM 100-10MG/5ML [Robitussin DM] 10 ml PO Q4H PRN 04/01/23 [History] guaiFENesin-DM 600/30MG [Mucinex Dm] 2 tab PO Q12HR PRN 04/01/23 [History] Ammonium Lactate Lotion [Lac-Hydrin 12% Lotion] 1 applic TOPICAL BID PRN 30 Days #1 each 04/12/23 [Rx] Aspirin EC [Ecotrin Low Dose] 81 mg PO DAILY@0800 30 Days #30 tab 04/12/23 [Rx] Clotrimazole/Betameth Cream [Lotrisone] 1 applic TOPICAL BID@799,2099 30 Days #1 each 04/12/23 [Rx] Diltiazem Cd [Cardizem CD] 120 mg PO DAILY@0800 30 Days #30 cap 04/12/23 [Rx] Diltiazem Cd [Cardizem CD] 240 mg PO DAILY@0800 30 Days #30 cap 04/12/23 [Rx] Divalproex ER [Depakote ER] 1,500 mg PO HS@2099 30 Days #90 tab 04/12/23 [Rx] Ezetimibe [Zetia] 10 mg PO HS@2099 30 Days #30 tab 04/12/23 [Rx] Fluticasone Propion/Salmeterol [Advair 250-50 Diskus] 1 puff INHALATION RT- BID@799,2099 30 Days #1 each 04/12/23 [Rx] Ibuprofen [Motrin] 600 mg PO Q8H PRN 30 Days #90 tab 04/12/23 [Rx] Metoprolol Tartrate [Lopressor] 50 mg PO BID@799,2099 30 Days #60 tab 04/12/23 [Rx] Pantoprazole [Protonix] 40 mg PO DAILY@0800 30 Days #30 tab 04/12/23 [Rx] QUEtiapine [SEROquel] 800 mg PO HS 30 Days #60 tab 04/12/23 [Rx] amantadine HCL [Symmetrel] 100 mg PO TID@0800,1200,2099 30 Days #90 cap 04/12/23 [Rx] lamoTRIgine [LaMICtal] 100 mg PO DAILY 30 Days #30 tab 04/12/23 [Rx] Follow up Appointment(s)/Referral(s): [facility] [Outside] - 04/12/23 1:00 pm (04/12/23@ 1pm Clint Caicedo with [facility] 04/14@ 9:30am Emilia Harrison NP) None,Stated [Primary Care Provider] - 1-2 days Activity/Diet/Wound Care/Special Instructions: Avoid the use of street drugs and alcohol. Take all medications as prescribed. When you are in need of refills on your medications, please contact your medical provider and/or outpatient psychiatrist to have this done. Please go to scheduled outpatient appointments for aftercare treatment. If symptoms return or become worse, call the crisis line at and/or go to the nearest emergency room for evaluation. Discharge Disposition: OTHER INSTITUTION NOT DEFINED
[2023-04-12 12:52] LABS: Glucose,Whole Blood 146 mg/dL (70-110)
== END 2023-04-12 12:24 | disposition home or self-care (01) | DRG 885 ==
LOC: EC 10:27 → 3MHU 14:18
PROVIDERS: ADMIT Psychiatry & Neurology Psychiatry; ATTEND Psychiatry & Neurology Psychiatry
DX: F25.0 Schizoaffective disorder, bipolar type (principal); F45.9 Somatoform disorder, unspecified; F41.9 Anxiety disorder, unspecified; E78.5 Hyperlipidemia, unspecified; F17.210 Nicotine dependence, cigarettes, uncomplicated; F63.81 Intermittent explosive disorder; G47.00 Insomnia, unspecified; I10 Essential (primary) hypertension; J44.9 Chronic obstructive pulmonary disease, unspecified; Z79.4 Long term (current) use of insulin; Z79.82 Long term (current) use of aspirin; Z79.899 Other long term (current) drug therapy; Z53.20 Procedure and treatment not carried out because of patient's decision for unspecified reasons; Z71.89 Other specified counseling; Z88.8 Allergy status to other drugs, medicaments and biological substances; Z20.822 Contact with and (suspected) exposure to COVID-19
CPT/HCPCS: 36415; 80053; 80061; 80164; 80306; 81003; 82075; 83036; 84443; 85025; 87635; 99285

== ENCOUNTER 2023-11-05 22:37 | Observation (INO) | payer MEDICARE ==
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
[2023-11-06 00:21] LABS: Basophils # (A) 0.1 k/uL (0-0.2); Basophils % (A) 1 %; Eosinophils # (A) 0.1 k/uL (0-0.7); Eosinophils % (A) 1 %; HCT 46.1 % (39.0-53.0); HGB 16.4 gm/dL (13.0-17.5); Lymphocytes # (A) 2.7 k/uL (1.0-4.8); Lymphocytes % (A) 20 %; MCH 33.9 pg (25.0-35.0); MCHC 35.5 g/dL (31.0-37.0); MCV 95.3 fL (80.0-100.0); Mean Platelet Volume 7.3; Monocytes # (A) 1.4 k/uL (0-1.0); Monocytes % (A) 10 %; Neutrophils # (A) 8.9 k/uL (1.3-7.7); Neutrophils % (A) 67 %; Platelet Count 239 k/uL (150-450); RBC 4.84 m/uL (4.30-5.90); RDW 12.3 % (11.5-15.5); WBC 13.2 k/uL (3.8-10.6)
--- NOTE | 2023-11-06 00:45 | XR ---
EXAMINATION TYPE: XR chest 2V DATE OF EXAM: 11/06/2023 COMPARISON: Chest x-ray January 20, 2019 HISTORY: Increased falls with weakness TECHNIQUE: Frontal and lateral views of the chest are obtained. FINDINGS: There is some chronic parenchymal changes bilaterally without suspicious focal air space o pacity, pleural effusion, or pneumothorax seen. The cardiac silhouette size remains within normal li mits. Overlying EKG leads are redemonstrated. Multilevel spurring in thoracic spine is again seen. IMPRESSION: No acute cardiopulmonary process. No significant change from prior.
--- NOTE | 2023-11-06 00:46 | XR ---
EXAMINATION TYPE: XR lumbar spine 2 or 3V DATE OF EXAM: 11/06/2023 CLINICAL HISTORY: Weakness and back pain. Increased falls. TECHNIQUE: Frontal and lateral images of the lumbar spine are obtained. COMPARISON: CT lumbar spine November 01, 2017 FINDINGS: There are 5 lumbar type vertebral bodies redemonstrated. The lumbar spine shows stable an d satisfactory alignment without evidence of acute fracture or dislocation. Vertebral body heights an d disk space heights remain within normal limits. Fairly moderate multilevel anterior and lateral spu rring is redemonstrated. Overlying soft tissues are unremarkable. IMPRESSION: No acute fracture or dislocation is seen in the lumbar spine.
--- NOTE | 2023-11-06 00:47 | XR ---
EXAMINATION TYPE: XR shoulder complete BILAT DATE OF EXAM: 11/06/2023 CLINICAL HISTORY: Fall injury. Weakness. TECHNIQUE: Three views of the bilateral shoulders are obtained. COMPARISON: None. FINDINGS: There is no acute fracture/dislocation evident in either shoulder. The acromioclavicular and glenohumeral joint spaces appear within normal limits bilaterally. The visualized ribs are intac t bilaterally. IMPRESSION: There is no acute fracture or dislocation in either shoulder.
--- NOTE | 2023-11-06 00:50 | CT ---
EXAMINATION TYPE: CT brain cspine wo con DATE OF EXAM: 11/06/2023 COMPARISON: MRI brain October 27, 2012 HISTORY: Weakness, back pain, uncontrolled glucose, increased falls ( pt states at [facility] home- Cc's v illa) CT DLP: 1412.6 mGycm. Automated Exposure Control for Dose Reduction was Utilized. TECHNIQUE: CT scan of the head and cervical spine are performed without contrast. FINDINGS: There is no acute intracranial hemorrhage or midline shift identified. Mild to moderate v entricular and sulcal prominence is seen. Mild low attenuation in the periventricular white matter is present. The globes are intact. Nasal septum is deviated to right of midline. There is moderate muco kori thickening involving the right maxillary sinus. There is mild mucosal thickening involving the le ft maxillary sinus. There is patchy opacification of the posterior ethmoid sinuses bilaterally. The c alvarium is intact. Globes are intact bilaterally. Cervical spine is visualized in its entirety from C1 through upper thoracic levels and demonstrates s atisfactory alignment without evidence of acute fracture or dislocation. Prevertebral soft tissue ap pears within normal limits. The C1-C2 articulation is within normal limits on coronal images. Verte bral body heights and disc space heights are maintained. Spinal canal is preserved. There is mild/mod erate calcified plaque left carotid bulb level seen. Thyroid gland is within normal limits. Lung apic es show no pneumothorax IMPRESSION: 1. There is no acute fracture or dislocation evident in the cervical spine. 2. No acute intracranial hemorrhage or midline shift is seen.
[2023-11-06] MEDS: KETOROLAC 15 MG/ML 1 ML VIAL IVP STA (01:07)
[2023-11-06 01:08] LABS: ALT 17 U/L (4-49); AST 23 U/L (17-59); African American GFR (CKD) >90 (>60 ml/min/1.73 sqM); Albumin 3.8 g/dL (3.5-5.0); Alkaline Phosphatase 109 U/L (38-126); Anion Gap 12 mmol/L; Blood Urea Nitrogen 32 mg/dL (9-20); Calcium 9.4 mg/dL (8.4-10.2); Carbon Dioxide 23 mmol/L (22-30); Chloride 97 mmol/L (98-107); Glucose 323 mg/dL (74-99); Non-African American GFR(CKD) >90 (>60 ml/min/1.73 sqM); Potassium 4.4 mmol/L (3.5-5.1); Sodium 132 mmol/L (137-145); Total Bilirubin 0.7 mg/dL (0.2-1.3)
[2023-11-06] MEDS ORDERED: KETOROLAC 15 MG/ML 1 ML VIAL IVP PRN (01:41)
[2023-11-06] MEDS ORDERED: NALOXONE 0.4 MG/ML 1 ML VIAL IV PRN (01:41)
[2023-11-06] MEDS: SODIUM CHLORIDE 0.9% 1,000 ML IV SCH (02:24)
[2023-11-06 05:51] LABS: Glucose,Whole Blood 433 mg/dL (70-110)
[2023-11-06] MEDS ORDERED: ACETAMINOPHEN TAB 325 MG TAB PO PRN (09:54)
[2023-11-06] MEDS ORDERED: guaiFENesin-DM 600/30MG 1 EACH TAB.ER.12H PO PRN (09:54)
[2023-11-06] MEDS ORDERED: hydrOXYzine pamoate 25 MG CAP PO PRN (09:54)
[2023-11-06] MEDS ORDERED: MECLIZINE 12.5 MG TAB PO PRN (09:54)
[2023-11-06] MEDS ORDERED: DEXTROSE 50% SYRINGE 50 ML IVP PRN ×2 (10:00)
[2023-11-06] MEDS: NON FORMULARY DRUG (Omega-3 Fatty Acids [Omega-3] 1,000 MG Capsule) PO SCH (11:14)
[2023-11-06] MEDS: METOPROLOL TARTRATE 50 MG TAB PO SCH (11:17)
[2023-11-06] MEDS: ASPIRIN 81 MG PO SCH (11:17)
[2023-11-06] MEDS: PANTOPRAZOLE 40 MG TABLET PO SCH (11:17)
[2023-11-06] MEDS: DILTIAZEM CD 240 MG CAP.ER.24H PO SCH (11:17)
[2023-11-06] MEDS: lamoTRIgine 100 MG TAB PO SCH (11:17)
[2023-11-06] MEDS: DILTIAZEM CD 120 MG CAP.ER.24H PO SCH (11:17)
[2023-11-06 11:57] LABS: Glucose,Whole Blood 518 mg/dL (70-110)
[2023-11-06] MEDS: INSULIN REGULAR 100 UNIT/ML VIAL (IM/SQ) SQ SCH ×2 (12:09→17:30)
[2023-11-06] MEDS: INSULIN ASPART (NovoLOG) 100 UNIT/ML VIAL SQ SCH (12:09)
[2023-11-06] MEDS: ALBUTEROL NEBULIZED 2.5 MG/3 ML INHALATION SCH (12:59)
--- NOTE | 2023-11-06 13:28 | PN ---
PROGRESS NOTE SUBJECTIVE: This is a 58-year-old gentleman, who was admitted with a past medical history of schizoaffective disorder and multiple other medical issues, being followed in [facility] home, was complaining of generally weak and confused and also have history of multiple falls. The patient was taken to [facility]. CT scan of the brain did not show any acute abnormality. Neurology will be consulted to rule out the possibility of acute stroke. Otherwise, there is no history of any fever, rigors, or chills. The patient is unable to provide a coherent history. Most of the history is taken by discussion with staff and review of the chart at this time. PAST MEDICAL HISTORY: Reviewed include schizoaffective disorder, bipolar, asthma, COPD, history of CVA, TIA. Rest of the history and rest of the chart is also reviewed. HOME MEDICATIONS: Reviewed include Lamictal. Dose and rest of medications reviewed. ALLERGIES: Multiple allergies include amlodipine. Rest of the allergies are reviewed. FAMILY HISTORY: Unable to obtain. SOCIAL HISTORY: History of smoking. REVIEW OF SYSTEMS: Fourteen-point review is negative except as mentioned earlier. PHYSICAL EXAMINATION: VITAL SIGNS: Pulse is 87, blood pressure 181/96, respirations 20. CHEST: Clear to auscultation. CARDIOVASCULAR: S1, S2 muffled. ABDOMEN: Soft. NERVOUS SYSTEM: Diffusely weak. LABORATORY DATA: Sodium 132. WBC 13.2. Glucose 518. ASSESSMENT: 1. Falls and weakness. Rule out acute stroke versus transient ischemic attack. 2. Diabetes mellitus, type 2, uncontrolled with hyperosmolar state. 3. Hyponatremia. 4. Increased WBC. 5. History of asthma, chronic obstructive pulmonary disease. 6. Hypertension. 7. Schizoaffective disorder. 8. Anxiety, bipolar. 9. Gait dysfunction. RECOMMENDATIONS AND DISCUSSION: This is a 58-year-old gentleman, who presented with multiple complex medical issues. We will monitor the patient closely. I would recommend initiate home medications. Start insulin and monitor blood sugars closely. PT, OT evaluation, possible ECF rehab. Neurology consultation. Complete neurovascular workup including 2D echo and carotid Doppler. Prognosis guarded because of multiple complex medical issues. Further recommendations to follow. See orders for further details. Fall precautions. IV fluids. MMODL / IJN: [id number] /
[2023-11-06] MEDS: INSULIN DETEMIR (LEVEMIR) 100 UNIT/ML SYR SQ SCH (13:34)
--- NOTE | 2023-11-06 13:46 | US ---
EXAMINATION TYPE: US carotid duplex BILAT DATE OF EXAM: 11/06/2023 COMPARISON: US CLINICAL INDICATION: Male, 58 years old with history of stroke; Stroke, weakness TECHNIQUE: Carotid duplex ultrasound examination. Indirect Doppler criteria was utilized. FINDINGS: EXAM MEASUREMENTS: RIGHT: Peak Systolic Velocity (PSV) cm/sec ----- Right CCA: 68.0 ----- Right ICA: 81.2 ----- Right ECA: 77.9 ICA/CCA ratio: 1.2 RIGHT: End Diastole cm/sec ----- Right CCA: 12.1 ----- Right ICA: 20.8 ----- Right ECA: 10.9 LEFT: Peak Systolic Velocity (PSV) cm/sec ----- Left CCA: 66.2 ----- Left ICA: 91.6 ----- Left ECA: 214.4 ICA/CCA ratio: 1.4 LEFT: End Diastole cm/sec ----- Left CCA: 9.5 ----- Left ICA: 21.7 ----- Left ECA: 22.0 VERTEBRALS (direction of flow): Right Vertebral: Antegrade Left Vertebral: Antegrade Rhythm: Normal CLIENT EXPERIENCE ADMINISTRATOR NOTES: Slightly elevated velocities left ECA, otherwise no evidence of significant stenso is. There is atherosclerotic changes. IMPRESSION: No significant hemodynamic stenosis by carotid Doppler ultrasound. Criteria for Assigning % of Stenosis / Diameter reduction (Estimation based on the indirect measurements of the internal carotid artery velocities (ICA PSV). 1. Normal (no stenosis)=ICA PSV < 125 cm/s: ratio < 2.0: ICA EDV<40 cm/s. 2. Less than 50% stenosis=ICA PSV < 125 cm/s: ratio < 2.0: ICA EDV<40 cm/s. 3. 50 to 69% stenosis=ICA PSV of 125 to 230 cm/s: ration 2.0 ? 4.0: ICA EDV 40-100 cm/s. 4. Greater than 70% stenosis to near occlusion= ICA PSV > 230 cm/s: ratio > 4.0: ICA EDV > 100 cm/s. 5. Near occlusion= ICA PSV velocities may be low or undetectable: variable ratio and ICA EDV. 6. Total occlusion=unable to detect flow.
[2023-11-06 16:29] LABS: Glucose,Whole Blood 227 mg/dL (70-110)
--- NOTE | 2023-11-06 19:07 | P.CNNES ---
History of Present Illness Consult date: 11/06/23 Requesting physician: Whitney Martinez Reason for Consult: weakness and falls History of Present Illness: Patient is a 58-year-old right-handed male came to the hospital yesterday at 10:37 PM for frequent falls. Patient states that he has fell about 8 times in the last 12 months. Patient states he has history of diabetic neuropathy, with numbness of the feet and ankles in the socks distribution. He is unsteady when he is walking in the last few months. 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 Denies any numbness of the hands. Patient states that one of the fall, he was sitting on the toilet and fell between the toilet and the wall about less than 1 week ago. 1 time he was walking with a walker when he fell over on the side and he required help to pick him up. He has developed some incontinence of the urine recently. He has had couple other falls. Some of these falls were hard, and it hurt. He fell on the buttocks with couple of the falls in end of last year. In the middle of the last year, he fell down straight between the table and the bed. He states "it hurts". 1 time he was walking upstairs and his foot got in the upper step, and he fell about 3-7 steps and landed on the landing. He is back of neck crunches with some movements. He has developed low back pain which is localized, very severe without any radiation to the legs. When he walks, the back pain gets worse. When he turns over, then it hurts more. He has been using walker in the last few months since he has been in [facility] since July or August 2023. He has no relative. His parents and his brother . Vital signs on arrival blood pressure 140/79, pulse rate 84 temperature 98.2. Blood test shows WBC 13.2 hemoglobin 16.4, normal platelets. Sodium 132 potassium 4.4, normal renal functions. Normal hepatic panel. Chest x-ray showed no acute cardiopulmonary process. X-ray of the lumbar spine revealed no acute fracture or dislocation. Shoulder x-ray is normal. CT of the brain showed no acute intracranial hemorrhage or midline shift. On my review, there is evidence of an old lacunar infarct in the left putamen. CT of the cervical spine showed no acute fracture or dislocation evident in the cervical spine. Patient has history of diabetes type 2 for last 30 years. He states it is not controlled. He denies any alcohol use, no drug use. He has not smoked marijuana since age 19. He smokes about half pack per day, but is up and down for last 20 years. Patient states he had history of seizure in early last year. Review of Systems Constitutional: Reports chills, Denies fever Eyes: bilateral diplopia (when looking up, going on for few years), denies blurred vision, denies pain, denies loss of vision Ears: left: decreased hearing, deny: ear discharge Ears, nose, mouth and throat: Reports headache, Reports vertigo (Happened only once after the last fall (only 1 spinning episode)), Denies sore throat Cardiovascular: Reports chest pain (sometimes), Reports lightheadedness, Denies shortness of breath Respiratory: Reports cough, Reports excessive sputum Gastrointestinal: Denies abdominal pain, Denies diarrhea, Denies nausea, Denies vomiting Genitourinary: Reports incontinence (FOr 3 days), Reports urinary frequency (last week) Musculoskeletal: Reports low back pain, Reports neck pain (Someitmes), Denies neck stiffness (sometimes) Integumentary: Reports color changes, Reports darkening of skin, Denies pruritus, Denies rash Neurological: Reports as per HPI Psychiatric: Denies anxiety, Denies depression Endocrine: Reports fatigue, Reports weight change Hematologic/Lymphatic: Denies easy bleeding, Denies easy bruising Past Medical History Past Medical History: Asthma, COPD, CVA/TIA, Diabetes Mellitus, Hypertension, Thyroid Disorder Additional Past Medical History / Comment(s): Tremors History of Any Multi-Drug Resistant Organisms: None Reported Past Surgical History: Cholecystectomy Additional Past Surgical History / Comment(s): LEFT EYE Past Anesthesia/Blood Transfusion Reactions: No Reported Reaction Past Psychological History: Anxiety, Bipolar, Depression, Schizoaffective Disorder Smoking Status: Current every day smoker Past Alcohol Use History: None Reported Past Drug Use History: None Reported Additional Drug Use History / Comment(s): pt is a very poor historian - Past Family History Father Family Medical History: Unable to Obtain Medications and Allergies Home Medications Medication Instructions Recorded Confirmed Type Acetaminophen [Tylenol Arthritis] 650 mg PO Q8H PRN 12/02/19 11/06/23 History Insulin Detemir [Levemir Flextouch] 70 unit SQ HS 04/01/23 11/06/23 History Insulin Regular, Human [NovoLIN R 7 units SQ ACHS 04/01/23 11/06/23 History Flexpen] Meclizine [Antivert] 12.5 mg PO BID PRN 04/01/23 11/06/23 History [place]-3 Fatty Acids [[place]-3] 1,000 mg PO BID 04/01/23 11/06/23 History guaiFENesin-DM 600/30MG [Mucinex 2 tab PO Q12HR PRN 04/01/23 11/06/23 History Dm] Divalproex ER [Depakote ER] 1,500 mg PO HS@2100 30 Days #90 tab 04/12/23 11/06/23 Rx QUEtiapine [SEROquel] 800 mg PO HS 30 Days #60 tab 04/12/23 11/06/23 Rx lamoTRIgine [LaMICtal] 100 mg PO DAILY 30 Days #30 tab 04/12/23 11/06/23 Rx Albuterol Nebulized [Ventolin 2.5 mg INHALATION RT-BID 11/06/23 11/06/23 History Nebulized] Aspirin EC [Ecotrin Low Dose] 81 mg PO DAILY 11/06/23 11/06/23 History Diltiazem Cd [Cardizem CD] 120 mg PO DAILY 11/06/23 11/06/23 History Diltiazem Cd [Cardizem CD] 240 mg PO DAILY 11/06/23 11/06/23 History Ibuprofen [Motrin] 600 mg PO Q8H PRN 11/06/23 11/06/23 History Metoprolol Tartrate [Lopressor] 50 mg PO BID 11/06/23 11/06/23 History Pantoprazole [Protonix] 40 mg PO DAILY 11/06/23 11/06/23 History amantadine HCL [Symmetrel] 100 mg PO TID@0900,1200,2100 11/06/23 11/06/23 History hydrOXYzine pamoate [Vistaril] 50 mg PO Q8H PRN 11/06/23 11/06/23 History Allergies Allergy/AdvReac Type Severity Reaction Status Date / Time amlodipine Allergy Unknown Verified 11/06/23 09:26 aripiprazole [From Abilify] Allergy Unknown Verified 11/06/23 09:26 atorvastatin [From Lipitor] Allergy Unknown Verified 11/06/23 09:26 benztropine [From Cogentin] Allergy Unknown Verified 11/06/23 09:26 chlorpromazine Allergy Unknown Verified 11/06/23 09:26 [From Thorazine] fluphenazine [From Prolixin] Allergy Unknown Verified 11/06/23 09:26 gabapentin Allergy Unknown Verified 11/06/23 09:26 haloperidol [From Haldol] Allergy Unknown Verified 11/06/23 09:26 insulin glargine Allergy Unknown Verified 11/06/23 09:26 [From Lantus] metformin Allergy Unknown Verified 11/06/23 09:26 olanzapine [From Zyprexa] Allergy Unknown Verified 11/06/23 09:26 paliperidone [From Invega] Allergy Unknown Verified 11/06/23 09:26 thiothixene Allergy Unknown Verified 11/06/23 09:26 ziprasidone [From Geodon] Allergy Unknown Verified 11/06/23 09:26 ABILIFY INJECTION Allergy Unknown Uncoded 11/05/23 22:45 INVEGA INJECTION Allergy Unknown Uncoded 11/05/23 22:45 Physical Examination - Vital Signs Vital Signs: Vital Signs Temp Pulse Pulse Resp BP BP Pulse Ox 11/06/23 07:52 97.7 F 87 20 181/96 94 L 11/06/23 02:43 98.8 F 82 16 120/74 98 11/06/23 02:30 74 16 144/81 95 11/06/23 01:00 72 15 136/84 98 11/06/23 00:00 80 14 154/83 98 11/05/23 23:30 72 14 167/87 97 11/05/23 22:38 98.2 F 84 20 144/79 99 Intake and Output 11/05/23 11/06/23 11/06/23 22:59 06:59 14:59 Other: # Voids 1 Weight 81.193 kg 81.193 kg Patient is a middle aged male, who appears older than his stated age. Patient appears to have some tardive dyskinesia with facial grimacing. Patient is alert awake oriented to time place and person. He states it is 11/29/2022 and that he is in [facility] imported on [place]. He knows name of the current president. Patient tells me that he lives in [facility] home. Speech and language functions are normal. Patient can name and repeat very well. No aphasia or dysarthria. Attention, concentration and fund of knowledge is adequate. Detailed cognitive function testing deferred. On cranial nerve examination, pupils are equal, round and reacting to light, visual dyer are full on confrontation, with no neglect on double simultaneous stimulation. Extraocular muscles are intact with no nystagmus. Face is symmetric, tongue protrudes to the midline. Palatal elevation and sensation normal, hearing and shoulder shrug normal, facial sensation normal. On muscle strength testing, there is no pronator drift and the strength is normal in arms and legs distally and proximally. Deep tendon reflexes are symmetric 1 at the biceps, trace brachioradialis, 0 at the knees and ankles and plantars are withdrawal bilaterally. Sensory to touch is equal with no neglect on double simultaneous stimulation. Cerebellar function showed mild to moderate tremor for nihkgm-jb-engb testing bilaterally with no ataxia. No ataxia for nowt-cq-gutq testing on either side. Tone is mildly increased in the arms and bulk of muscles normal. Gait deferred.. On general examination, there is no carotid bruit or murmur, S1-S2 audible. Chest is clear on consultation. Abdomen is soft nontender. No organomegaly, bowel sounds present. Peripheral pulses are present. No peripheral edema. Results - Laboratory Findings CBC and BMP: 11/06/23 00:05 11/06/23 00:05 Abnormal Lab Findings: Abnormal Labs 11/06/23 11/06/23 11/06/23 00:05 00:05 05:50 WBC 13.2 H Neutrophils # 8.9 H Monocytes # 1.4 H Sodium 132 L Chloride 97 L BUN 32 H Glucose 323 H POC Glucose (mg/dL) 433 H 11/06/23 11:55 WBC Neutrophils # Monocytes # Sodium Chloride BUN Glucose POC Glucose (mg/dL) 518 H Assessment and Plan Assessment: * Gait imbalance, with tendency to fall. Patient has fell about 8 times in the last 12 months, with fairly hard falls. He has developed significant localized low back pain, without any radiation to the legs. * Diabetes, poorly controlled * Hypertension * Tobacco use * Schizoaffective disorder Plan: * Patient has developed diabetic peripheral neuropathy affecting his balance. * We will check B12, folate, MMA, B6, hemoglobin A1c. Also check ESR, JASMINA, immunofixation electrophoresis, IgG, IgA, IgM. * Recommend optimize control of diabetes. * X-ray of the lumbar spine did not reveal any fracture or dislocation. * If the pain persist, we will consider MRI of the lumbar spine. * Carotid Doppler revealed no significant hemodynamic stenosis on either side. Antegrade flow in both vertebral arteries. * Neurology will follow. Thank you for the consult. Time with Patient: Greater than 30
[2023-11-06 20:42] LABS: Glucose,Whole Blood 176 mg/dL (70-110)
[2023-11-06] MEDS ORDERED: INSULIN DETEMIR (LEVEMIR) 100 UNIT/ML SYR SQ SCH (21:00)
[2023-11-06] MEDS: QUEtiapine 400 MG TAB PO SCH (22:11)
[2023-11-06] MEDS: DIVALPROEX ER 500 MG TAB.ER.24H PO SCH (22:12)
[2023-11-07 06:11] LABS: Appearance,Urine Clear (Clear); Bilirubin,Urine Negative (Negative); Blood,Urine Negative (Negative); Color,Urine Colorless; Glucose,Urine (UA) Trace (Negative); Ketones,Urine Negative (Negative); Leukocyte Esterase,Urine Negative (Negative); Nitrite,Urine Negative (Negative); PH, Urine 6.5 (5.0-8.0); Protein,Urine Negative (Negative); Specific Gravity,Urine 1.008 (1.001-1.035); Urobilinogen,Urine <2.0 mg/dL (<2.0)
[2023-11-07 06:28] LABS: Glucose,Whole Blood 137 mg/dL (70-110)
[2023-11-07 11:42] LABS: Glucose,Whole Blood 229 mg/dL (70-110)
--- NOTE | 2023-11-07 12:08 | CA ---
Transthoracic Echo Report Name: Lucas Dumont Age: 58 Gender: M : 1965 Exam Date: 11/07/2023 07:34 Exam Location: [place] [facility] Ht (in): 70 Wt (lb): 179 Ordering Physician: Leanne Talbot MD Attending/Referring Phys: Explosive Man Loretta York RDCS Procedure CPT: Indications: stroke Cardiac Hx: Technical Quality: Technically difficult study Contrast 1: Definity Total Dose (mL): 2 Contrast 2: Total Dose (mL): MEASUREMENTS (Male / Female) Normal Values 2D ECHO LV Diastolic Diameter PLAX 3.9 cm 4.2 - 5.9 / 3.9 - 5.3 cm LV Systolic Diameter PLAX 3.1 cm IVS Diastolic Thickness 1.1 cm 0.6 - 1.0 / 0.6 - 0.9 cm LVPW Diastolic Thickness 1.2 cm 0.6 - 1.0 / 0.6 - 0.9 cm LV Relative Wall Thickness 0.6 RV Internal Dim ED PLAX 2.9 cm LA Systolic Diameter LX 3.5 cm 3.0 - 4.0 / 2.7 - 3.8 cm LV Diastolic Volume MOD BP 44.5 cm??? 67 - 155 / 56 - 104 cm??? LV Systolic Volume MOD BP 6.4 cm??? 22 - 58 / 19 - 49 cm??? LV Ejection Fraction MOD BP 85.6 % >= 55 % LV Cardiac Index MOD BP 1191.6 cm???/min???m??? LV Diastolic Volume MOD 4C 50.6 cm??? LV Systolic Volume MOD 4C 9.1 cm??? LV Ejection Fraction MOD 4C 82.0 % LV Cardiac Index MOD 4C 1297.8 cm???/min???m??? LV Diastolic Length 4C 8.4 cm LV Systolic Length 4C 3.2 cm LV Diastolic Volume MOD 2C 36.0 cm??? LV Systolic Volume MOD 2C 4.5 cm??? LV Ejection Fraction MOD 2C 87.5 % LV Cardiac Index MOD 2C 986.9 cm???/min???m??? LV Diastolic Length 2C 7.6 cm LV Systolic Length 2C 3.4 cm LA Volume 30.7 cm??? 18 - 58 / 22 - 52 cm??? LA Volume Index 15.3 cm???/m??? 16 - 28 cm???/m??? M-MODE Aortic Root Diameter MM 3.2 cm MV E Point Septal Separation 0.7 cm AV Cusp Separation MM 2.2 cm DOPPLER AV Peak Velocity 175.9 cm/s AV Peak Gradient 12.4 mmHg MV Area PHT 2.2 cm??? Mitral E Point Velocity 86.9 cm/s Mitral A Point Velocity 95.4 cm/s Mitral E to A Ratio 0.9 MV Deceleration Time 340.2 ms FINDINGS Left Ventricle Left ventricular ejection fraction is estimated at 60-65 %. Small left ventricular cavity. Left ventricular wall thickness normal. Right Ventricle Normal right ventricular size. Unable to estimate the right ventricular systolic pressure. Right Atrium Normal right atrial size. Left Atrium Normal left atrial size. Mitral Valve Structurally normal mitral valve. No mitral stenosis, or prolapse.trace to mild mitral regurgitation. Mitral annular calcification. Aortic Valve Trileaflet aortic valve. Thickened aortic valve without stenosis. Tricuspid Valve Structurally normal tricuspid valve. No tricuspid stenosis, regurgitation or prolapse. Pulmonic Valve Structurally normal pulmonic valve. Pericardium No pericardial effusion. Aorta Normal size aortic root and proximal ascending aorta. CONCLUSIONS Technically difficult study. Definity ECHO contrast used for improved visualization of the endocardial borders (inadequate visualization of two or more contiguous segments). Normal left ventricle size and systolic function Limited Doppler study with trace to mild mitral regurgitation Previewed by: Dr. Rebekah Devine MD (Electronically Signed) Final Date: 07 November 2023 12:07
[2023-11-07 12:49] LABS: Basophils % (A) 0 %; Eosinophils # (A) 0.1 k/uL (0-0.7); Eosinophils % (A) 1 %; HCT 39.2 % (39.0-53.0); HGB 13.8 gm/dL (13.0-17.5); Lymphocytes # (A) 2.7 k/uL (1.0-4.8); Lymphocytes % (A) 23 %; MCH 33.8 pg (25.0-35.0); MCHC 35.2 g/dL (31.0-37.0); Mean Platelet Volume 7.2; Monocytes # (A) 1.1 k/uL (0-1.0); Monocytes % (A) 10 %; Neutrophils # (A) 7.7 k/uL (1.3-7.7); Neutrophils % (A) 65 %; Platelet Count 213 k/uL (150-450); RBC 4.08 m/uL (4.30-5.90); RDW 12.4 % (11.5-15.5); WBC 11.8 k/uL (3.8-10.6)
[2023-11-07 15:47] LABS: Immunoglobulin M 63.1 mg/dL (40.0-280.0)
[2023-11-07 16:08] LABS: Blood Urea Nitrogen 18.9 mg/dL (9.0-27.0); Calcium 9.4 mg/dL (8.7-10.3); Chloride 103 mmol/L (96-109); Glucose 88 mg/dL (70-110); Potassium 3.7 mmol/L (3.5-5.5); Sodium 143 mmol/L (135-145)
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
[2023-11-07 16:38] LABS: Glucose,Whole Blood 235 mg/dL (70-110)
[2023-11-07 17:10] LABS: Erythrocyte Sedimentation Rate 28 mm/Hr (0-20)
[2023-11-07] MEDS: IBUPROFEN 600 MG TAB PO PRN (18:21)
[2023-11-07 21:09] LABS: Glucose,Whole Blood 286 mg/dL (70-110)
[2023-11-08 05:28] LABS: Glucose,Whole Blood 150 mg/dL (70-110)
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
--- NOTE | 2023-11-08 11:08 | P.PN ---
Subjective Progress Note Date: 11/07/23 Patient was seen for a follow-up. Patient is laying in the bed, somewhat somnolent. Patient states his back pain is about 2-3/10. When he gets up, he cannot walk. He states that it takes "15 hours to get out of bed". Continues to have numbness in the feet. Apparently patient was discharged today, but he declined to go. He started having some behavioral issues. Psychiatry has seen the patient. Adjusted medications. Objective - Vital Signs Vital signs: Vital Signs Temp 98.3 F 11/07/23 13:16 Pulse 61 11/07/23 13:16 Resp 18 11/07/23 13:16 BP 128/75 11/07/23 13:16 Pulse Ox 97 11/07/23 13:16 FiO2 Intake & Output 11/06/23 11/07/23 11/07/23 18:59 06:59 18:59 Output Total 1200 Balance -1200 Output: Urine 1200 - Exam Patient's mental status, speech and language functions are normal. The muscle strength is completely normal in the arms and legs distally and proximally including hip flexion. There is mild to moderate tremors for qqgqnj-dl-fptn testing bilaterally. Patient is areflexic. Sensory examination revealed decreased sensation in socks distribution. I had patient walk. He was able to get up from the bed without any difficulty. He walks with slight wide-based. Appeared quite steady, will be much better, if he uses the walker regularly. - Labs CBC & Chem 7: 11/07/23 12:04 11/07/23 08:13 Labs: Abnormal Lab Results - Last 24 Hours (Table) 11/06/23 11/06/23 11/07/23 Range/Units 14:19 20:36 05:45 WBC (3.8-10.6) k/uL RBC (4.30-5.90) m/uL Monocytes # (0-1.0) k/uL ESR (0-20) mm/Hr Anion Gap (4.00-12.00) mmol/L BUN/Creatinine Ratio (12.00-20.00) Ratio POC Glucose (mg/dL) 176 H (70-110) mg/dL Hemoglobin A1c 8.2 H (<=6.0) % Vitamin B12 (200.0-944.0) pg/mL Urine Glucose (UA) Trace H (Negative) IgA (60.0-350.0) mg/dL 11/07/23 11/07/23 11/07/23 Range/Units 06:24 08:13 08:13 WBC (3.8-10.6) k/uL RBC (4.30-5.90) m/uL Monocytes # (0-1.0) k/uL ESR (0-20) mm/Hr Anion Gap 14.00 H (4.00-12.00) mmol/L BUN/Creatinine Ratio 27.00 H (12.00-20.00) Ratio POC Glucose (mg/dL) 137 H (70-110) mg/dL Hemoglobin A1c (<=6.0) % Vitamin B12 1156.0 H (200.0-944.0) pg/mL Urine Glucose (UA) (Negative) IgA 365.0 H (60.0-350.0) mg/dL 11/07/23 11/07/23 11/07/23 Range/Units 11:41 12:04 16:37 WBC 11.8 H (3.8-10.6) k/uL RBC 4.08 L (4.30-5.90) m/uL Monocytes # 1.1 H (0-1.0) k/uL ESR 28 H (0-20) mm/Hr Anion Gap (4.00-12.00) mmol/L BUN/Creatinine Ratio (12.00-20.00) Ratio POC Glucose (mg/dL) 229 H 235 H (70-110) mg/dL Hemoglobin A1c (<=6.0) % Vitamin B12 (200.0-944.0) pg/mL Urine Glucose (UA) (Negative) IgA (60.0-350.0) mg/dL Assessment and Plan Assessment: * Gait imbalance, with tendency to fall. Patient has fell about 8 times in the last 12 months, with fairly hard falls. He has developed significant localized low back pain, without any radiation to the legs. * Diabetic neuropathy, likely the cause of gait imbalance and falls. * Diabetes, poorly controlled * Hypertension * Tobacco use * Schizoaffective disorder Plan: * Patient has developed diabetic peripheral neuropathy affecting his balance. * B12 1156, folate 9.0, hemoglobin A1c 8.2. ESR 28, JASMINA positive, titers pending, MMA, B6 and immunofixation electrophoresis pending, IgG 1109, IgA 365/350, IgM 63. We will start folic acid 1 mg daily. * Recommend optimize control of diabetes, to target A1c <7.0. * X-ray of the lumbar spine did not reveal any fracture or dislocation. * Patient's pain has much improved. Patient walked and appeared quite steady, although because of his sensory ataxia, would strongly recommend using walker religiously to prevent falls. * Recommend patient follow-up with neurologist outpatient for EMG and nerve conduction studies of upper and lower extremities to rule out any inflammatory polyneuropathy. * Carotid Doppler revealed no significant hemodynamic stenosis on either side. Antegrade flow in both vertebral arteries. * Neurologically clear for discharge.
[2023-11-08 11:35] LABS: Glucose,Whole Blood 276 mg/dL (70-110)
[2023-11-08] MEDS: FOLIC ACID 1 MG TAB PO SCH (12:52)
[2023-11-08 16:38] LABS: Glucose,Whole Blood 155 mg/dL (70-110)
[2023-11-08 20:55] LABS: Glucose,Whole Blood 261 mg/dL (70-110)
[2023-11-09 03:26] VITALS: RESP 18
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
[2023-11-09 06:06] LABS: Glucose,Whole Blood 142 mg/dL (70-110)
[2023-11-09 07:33] LABS: Basophils # (A) 0.1 k/uL (0-0.2); Basophils % (A) 1 %; Eosinophils # (A) 0.1 k/uL (0-0.7); Eosinophils % (A) 1 %; HCT 46.4 % (39.0-53.0); HGB 15.4 gm/dL (13.0-17.5); Lymphocytes % (A) 32 %; MCH 33.9 pg (25.0-35.0); MCHC 33.2 g/dL (31.0-37.0); Macrocytosis Slight; Mean Platelet Volume 7.7; Monocytes % (A) 10 %; Neutrophils % (A) 53 %; Platelet Count 200 k/uL (150-450); RBC 4.55 m/uL (4.30-5.90); RDW 12.5 % (11.5-15.5); WBC 9.5 k/uL (3.8-10.6)
[2023-11-09 08:23] LABS: Glucose,Whole Blood 130 mg/dL (70-110)
[2023-11-09 11:49] LABS: Glucose,Whole Blood 264 mg/dL (70-110)
[2023-11-09 12:30] LABS: ALT 12 U/L (10-49); AST 14 U/L (14-35); Albumin 3.4 g/dL (3.8-4.9); Albumin/Globulin Ratio 1.26 Ratio (1.60-3.17); Alkaline Phosphatase 81 U/L (41-126); BUN/Creat Ratio 20.29 Ratio (12.00-20.00); Blood Urea Nitrogen 14.2 mg/dL (9.0-27.0); Calcium 9.4 mg/dL (8.7-10.3); Chloride 103 mmol/L (96-109); Globulin 2.7 g/dL (1.6-3.3); Glucose 113 mg/dL (70-110); Magnesium 2.1 mg/dL (1.5-2.4); Potassium 4.2 mmol/L (3.5-5.5); Sodium 140 mmol/L (135-145); Total Bilirubin 0.2 mg/dL (0.3-1.2); Total Protein 6.1 g/dL (6.2-8.2)
[2023-11-09] MEDS ORDERED: OLANZapine 10 MG VIAL IM PRN ×2 (13:21→14:22)
[2023-11-09] MEDS ORDERED: OLANZapine 10 MG TAB PO PRN (13:21)
--- NOTE | 2023-11-09 13:39 | P.PN ---
Progress Note - Text Progress Note Date: 11/09/23 Interval history: Patient was seen today for psychiatric follow-up. Apparently patient has been refusing to go to [facility]. Patient apparently was seen by guardian yesterday and apparently petitioned. Patient's nurse states that patient was refusing to go to the [facility] home yesterday, however has been taking his medications not reporting any other issues. Patient apparently has been sleeping at nighttime, eating and watching television mainly. Patient was seen today resting in the room. He was fairly calm, cooperative and directable during conversation. He asked video games storywriter where he will be going today. He appears to be fairly at baseline with regards to his thought process and tangentiality. He is not responding to internal stimuli. He claims that he wanted to go to a "more peaceful place" however was not able to decide on other [facility] homes. He claims that he is eating well, sleeping fairly at nighttime and has been taking his medications. He is not endorsing any paranoia today. Patient is mildly delusional at baseline. At this time he is denying any suicidal or homicidal ideations intent or plan. Denying any auditory or visual hallucinations. Not reporting any side effects. MENTAL STATUS EXAM: General Appearance: Patient appears to be elderly, stated age is alert, directable however does ramble, improving. Patient appears to have fair hygiene and grooming. Behavior: Patient is seated without any agitated behavior. cooperative. Speech: Patient's speech is rambles, tangential, this is chronic Mood/Affect: Patient reports their mood is "alright", affect is congruent and constricted. Suicidality/Homicidality: Patient denies having any homicidal ideation intent or plan. Denies any suicidal ideations intent or plan Perceptions: Patient denies any visual hallucinations and denies any auditory hallucinations Though content/process: Rambles, tangential/circumstantial, this is chronic. Mildly delusional at baseline. No loose associations. No Paranoia. Memory and concentration: AOX3, grossly intact for the purposes of this session. redirectable attention Judgment and insight: chronically limited/poor IMPRESSIONS: Schizoaffective disorder, bipolar type Nicotine dependence PLAN: -At this time patient DOES NOT meet criteria for inpatient psychiatric admission. [-Delirium precautions recommended with patient including - avoiding use of narcotics and BREAKER OPERATOR sedatives, limit anticholinergic medications when possible, frequent re-orientation, minimize use of restraints, open window shades during the day and close them at night] -Would recommend the following medication changes/additions: seroquel home dose 800 mg qhs for mood stabilization/psychosis, depakote er 1500 mg qhs for mood stabilization. Continue holding Lamictal. Added Zyprexa as needed for agitation either IM or p.o. -he will continue following up at [facility] with Dr Frazier. -Discussed case with sample case porter briefly and advised that guardian should be looking into other placement options after discharge if patient does not like this current [facility]. -Communicated plan to patient's nurse -Psychiatry will sign off at this time -Please contact with any questions.
[2023-11-09] MEDS: LORazepam 1 MG TAB PO PRN (15:03)
[2023-11-09] MEDS: risperiDONE 2 MG TAB PO PRN (15:03)
[2023-11-09] MEDS ORDERED: PYRIDOXINE 50 MG TAB PO SCH (15:15)
[2023-11-09 15:38] VITALS: BP 144/79; PULSE 63; TEMP 98
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
--- NOTE | 2023-11-10 10:24 | P.PN ---
Subjective Progress Note Date: 11/09/23 Patient was seen for a follow-up. Patient is laying in the bed, keeps his eyes closed, but then wakes up. Offers no new complaints. Continues to have numbness in the feet. Objective - Vital Signs Vital signs: Vital Signs Temp 97.8 F 11/09/23 07:33 Pulse 67 11/09/23 07:33 Resp 18 11/09/23 07:33 BP 133/77 11/09/23 07:33 Pulse Ox 98 11/09/23 07:33 FiO2 Intake & Output 11/08/23 11/09/23 11/09/23 18:59 06:59 18:59 Intake Total 240 Balance 240 Intake: Oral 240 Other: # Voids 3 2 - Exam Patient's mental status, speech and language functions are normal. The muscle strength is completely normal in the arms and legs distally and proximally including hip flexion. There is mild to moderate tremors for fvqpgk-cx-sqgv testing bilaterally. Patient is areflexic. Sensory examination revealed decreased sensation in socks distribution. I had patient walk. He was able to get up from the bed without any difficulty. He walks with slight wide-based. Appeared quite steady, will be much better, if he uses the walker regularly. - Labs CBC & Chem 7: 11/09/23 06:50 11/09/23 06:50 Labs: Abnormal Lab Results - Last 24 Hours (Table) 11/08/23 11/08/23 11/09/23 Range/Units 16:37 20:50 06:04 MCV (80.0-100.0) fL BUN/Creatinine Ratio (12.00-20.00) Ratio Glucose (70-110) mg/dL POC Glucose (mg/dL) 155 H 261 H 142 H (70-110) mg/dL Total Bilirubin (0.3-1.2) mg/dL Total Protein (6.2-8.2) g/dL Albumin (3.8-4.9) g/dL Albumin/Globulin Ratio (1.60-3.17) Ratio 11/09/23 11/09/23 11/09/23 Range/Units 06:50 06:50 08:22 MCV 102.0 H D (80.0-100.0) fL BUN/Creatinine Ratio 20.29 H (12.00-20.00) Ratio Glucose 113 H (70-110) mg/dL POC Glucose (mg/dL) 130 H (70-110) mg/dL Total Bilirubin 0.2 L (0.3-1.2) mg/dL Total Protein 6.1 L (6.2-8.2) g/dL Albumin 3.4 L (3.8-4.9) g/dL Albumin/Globulin Ratio 1.26 L (1.60-3.17) Ratio 11/09/23 Range/Units 11:48 MCV (80.0-100.0) fL BUN/Creatinine Ratio (12.00-20.00) Ratio Glucose (70-110) mg/dL POC Glucose (mg/dL) 264 H (70-110) mg/dL Total Bilirubin (0.3-1.2) mg/dL Total Protein (6.2-8.2) g/dL Albumin (3.8-4.9) g/dL Albumin/Globulin Ratio (1.60-3.17) Ratio Microbiology - Last 24 Hours (Table) 11/06/23 14:18 Blood Culture - Preliminary Blood Assessment and Plan Assessment: * Gait imbalance, with tendency to fall. Patient has fell about 8 times in the last 12 months, with fairly hard falls. He has developed significant localized low back pain, without any radiation to the legs. * Diabetic neuropathy, likely the cause of gait imbalance and falls. * Diabetes, poorly controlled * Vitamin B6 deficiency * Hypertension * Tobacco use * Schizoaffective disorder Plan: * Patient has developed diabetic peripheral neuropathy affecting his balance. * B12 1156, folate 9.0, hemoglobin A1c 8.2. ESR 28, JASMINA positive, titers pending, MMA <0.10, B6 5 (5-50) and immunofixation electrophoresis showed no monoclonal protein. IgG 1109, IgA 365/350, IgM 63. We will start folic acid 1 mg daily. Patient was started on vitamin B6 50 mg daily. A paper prescription of B6 was given, and handed to the nurse to be placed with the discharge papers. * Recommend optimize control of diabetes, to target A1c <7.0. * X-ray of the lumbar spine did not reveal any fracture or dislocation. * Patient's pain has much improved. Patient walked and appeared quite steady, although because of his sensory ataxia, would strongly recommend using walker religiously to prevent falls. * Recommend patient follow-up with neurologist outpatient for EMG and nerve conduction studies of upper and lower extremities to rule out any inflammatory polyneuropathy. * Carotid Doppler revealed no significant hemodynamic stenosis on either side. Antegrade flow in both vertebral arteries. * Neurologically clear for discharge.
== END 2023-11-09 16:57 | disposition home or self-care (01) ==
LOC: EC 22:37 → 4SSUR 11-06 01:43
PROVIDERS: ADMIT Internal Medicine; ATTEND Internal Medicine
DX: R29.6 Repeated falls (principal); R53.1 Weakness; R26.89 Other abnormalities of gait and mobility; M54.50 Low back pain, unspecified; E11.00 Type 2 diabetes mellitus with hyperosmolarity without nonketotic hyperglycemic-hyperosmolar coma (NKHHC); F25.0 Schizoaffective disorder, bipolar type; E87.1 Hypo-osmolality and hyponatremia; D72.829 Elevated white blood cell count, unspecified; F41.9 Anxiety disorder, unspecified; J44.9 Chronic obstructive pulmonary disease, unspecified; I10 Essential (primary) hypertension; E11.42 Type 2 diabetes mellitus with diabetic polyneuropathy; E53.1 Pyridoxine deficiency; F17.200 Nicotine dependence, unspecified, uncomplicated; Z86.73 Personal history of transient ischemic attack (TIA), and cerebral infarction without residual deficits; Z79.4 Long term (current) use of insulin; Z79.82 Long term (current) use of aspirin; Z79.899 Other long term (current) drug therapy
CPT/HCPCS: 96361 ×2; 96372 ×4; 96374; 99285; 36415; 93306; 97161; 97166; 84207; 83921; 80164; 80053 ×2; 80048; 85652; 82607; 82746; 83735; 85025 ×3; 81003; 87040; 82784 ×3; 86038; 86039; 86334; 83036; 73030; 72100; 71046; 93880; 72125; 70450; G0378 ×4; Q9957; J1885

== ENCOUNTER 2024-02-01 17:32 | Emergency (ER) | payer MEDICARE ==
[2024-02-01 17:46] LABS: Glucose,Whole Blood 307 mg/dL (70-110)
[2024-02-01 17:56] VITALS: TEMP 98.6
--- NOTE | 2024-02-01 18:10 | ED ---
Recheck HPI - General Chief Complaint: Recheck/Abnormal Lab/Rx Stated Complaint: Hyperglycemia Time Seen by Provider: 02/01/24 17:51 Source: EMS, RN notes reviewed, old records reviewed Mode of arrival: EMS Limitations: no limitations - History of Present Illness Initial Comments: This is a 59-year-old male to the ER for evaluation. Patient arrives to the ER for evaluation of elevated blood sugar patient has severely elevated blood sugar here in the emergency department but much improved from transferring facility. Patient is acutely psychotic with history of psychiatric illness and schizophrenia and is refusing any further evaluation and testing MD Complaint: abnormal lab (Evaded blood sugar) -: unknown Symptoms Since Prior Visit: no new symptoms Associated Symptoms: none Treatments Prior to Arrival: other - Related Data Home Medications Medication Instructions Recorded Confirmed Acetaminophen [Tylenol Arthritis] 650 mg PO Q8H PRN 12/02/19 11/06/23 Meclizine [Antivert] 12.5 mg PO BID PRN 04/01/23 11/06/23 [place]-3 Fatty Acids [[place]-3] 1,000 mg PO BID 04/01/23 11/06/23 guaiFENesin-DM 600/30MG [Mucinex 2 tab PO Q12HR PRN 04/01/23 11/06/23 Dm] Albuterol Nebulized [Ventolin 2.5 mg INHALATION RT-BID 11/06/23 11/06/23 Nebulized] Aspirin EC [Ecotrin Low Dose] 81 mg PO DAILY 11/06/23 11/06/23 Diltiazem Cd [Cardizem CD] 120 mg PO DAILY 11/06/23 11/06/23 Diltiazem Cd [Cardizem CD] 240 mg PO DAILY 11/06/23 11/06/23 Ibuprofen [Motrin] 600 mg PO Q8H PRN 11/06/23 11/06/23 Metoprolol Tartrate [Lopressor] 50 mg PO BID 11/06/23 11/06/23 Pantoprazole [Protonix] 40 mg PO DAILY 11/06/23 11/06/23 amantadine HCL [Symmetrel] 100 mg PO TID@0900,1200,2100 11/06/23 11/06/23 hydrOXYzine pamoate [Vistaril] 50 mg PO Q8H PRN 11/06/23 11/06/23 Previous Rx's Medication Instructions Recorded Divalproex ER [Depakote ER] 1,500 mg PO HS@2100 30 Days #90 tab 04/12/23 QUEtiapine [SEROquel] 800 mg PO HS 30 Days #60 tab 04/12/23 lamoTRIgine [LaMICtal] 100 mg PO DAILY 30 Days #30 tab 04/12/23 Insulin Detemir (Levemir) [Levemir] 40 unit SQ BID 30 Days #6 each 11/07/23 Insulin Regular, Human [NovoLIN R 10 units SQ ACHS #0 11/07/23 Flexpen] Folic Acid 1 mg PO DAILY #30 tab 11/08/23 Allergies Allergy/AdvReac Type Severity Reaction Status Date / Time amlodipine Allergy Unknown Verified 02/01/24 17:43 aripiprazole [From Abilify] Allergy Unknown Verified 02/01/24 17:43 atorvastatin [From Lipitor] Allergy Unknown Verified 02/01/24 17:43 benztropine [From Cogentin] Allergy Unknown Verified 02/01/24 17:43 chlorpromazine Allergy Unknown Verified 02/01/24 17:43 [From Thorazine] fluphenazine [From Prolixin] Allergy Unknown Verified 02/01/24 17:43 gabapentin Allergy Unknown Verified 02/01/24 17:43 haloperidol [From Haldol] Allergy Unknown Verified 02/01/24 17:43 insulin glargine Allergy Unknown Verified 02/01/24 17:43 [From Lantus] metformin Allergy Unknown Verified 02/01/24 17:43 olanzapine [From Zyprexa] Allergy Unknown Verified 02/01/24 17:43 paliperidone [From Invega] Allergy Unknown Verified 02/01/24 17:43 thiothixene Allergy Unknown Verified 02/01/24 17:43 ziprasidone [From Geodon] Allergy Unknown Verified 02/01/24 17:43 ABILIFY INJECTION Allergy Unknown Uncoded 02/01/24 17:43 INVEGA INJECTION Allergy Unknown Uncoded 02/01/24 17:43 Review of Systems ROS Statement: Those systems with pertinent positive or pertinent negative responses have been documented in the HPI. ROS Other: All systems not noted in ROS Statement are negative. Past Medical History Past Medical History: Asthma, COPD, CVA/TIA, Diabetes Mellitus, Hypertension, Thyroid Disorder Additional Past Medical History / Comment(s): Tremors History of Any Multi-Drug Resistant Organisms: None Reported Past Surgical History: Cholecystectomy Additional Past Surgical History / Comment(s): LEFT EYE Past Anesthesia/Blood Transfusion Reactions: No Reported Reaction Past Psychological History: Anxiety, Bipolar, Depression, Schizoaffective Disorder Smoking Status: Current every day smoker Past Alcohol Use History: None Reported Past Drug Use History: None Reported - Past Family History Father Family Medical History: Unable to Obtain General Exam Limitations: no limitations General appearance: alert, in no apparent distress Head exam: Present: atraumatic, normocephalic, normal inspection Eye exam: Present: normal appearance, PERRL, EOMI. Absent: scleral icterus, conjunctival injection, periorbital swelling ENT exam: Present: normal exam, mucous membranes moist Neck exam: Present: normal inspection. Absent: tenderness, meningismus, lymphadenopathy Respiratory exam: Present: normal lung sounds bilaterally. Absent: respiratory distress, wheezes, rales, rhonchi, stridor Cardiovascular Exam: Present: regular rate, normal rhythm, normal heart sounds. Absent: systolic murmur, diastolic murmur, rubs, gallop, clicks GI/Abdominal exam: Present: soft, normal bowel sounds. Absent: distended, tenderness, guarding, rebound, rigid Extremities exam: Present: normal inspection, full ROM, normal capillary refill. Absent: tenderness, pedal edema, joint swelling, calf tenderness Back exam: Present: normal inspection Neurological exam: Present: alert, oriented X3, CN II-XII intact Psychiatric exam: Present: normal affect, normal mood Skin exam: Present: warm, dry, intact, normal color. Absent: rash Course Vital Signs 02/01/24 02/01/24 17:36 21:02 Temperature 98.6 F Pulse Rate 74 85 Respiratory 18 20 Rate Blood Pressure 169/84 149/78 O2 Sat by Pulse 99 97 Oximetry - Reevaluation(s) Reevaluation #1: 02/01/24 21:00 Medical record is reviewed Reevaluation #2: 02/01/24 21:00 Patient informed of results and questions answered but still refusing testing Reevaluation #3: 02/01/24 21:00 Patient has no change in symptoms here in the ER remains asymptomatic Reevaluation #4: Was pt. sent in by a medical professional or institution (Dr., PA, MOTION PICTURE SCENE BUILDER, urgent care, hospital, or custodial...) When possible be specific @ -no Did you speak to anyone other than the patient for history (EMS, parent, family, police, friend...)? What history was obtained from this source @ -no Did you review nursing and triage notes (agree or disagree)? Why? @ -agree Are old charts reviewed (outside hosp., previous admission, EMS record, old EKG, old radiological studies, urgent care reports/EKG's, custodial records)? Report findings @ -yes Differential Diagnosis (chest pain, altered mental status, abdominal pain women, abdominal pain men, vaginal bleeding, weakness, fever, dyspnea, syncope, head ache, dizziness, GI bleed, back pain, seizure, CVA, palpatations, mental health, musculoskeletal)? @ -prior EKG interpreted by me (3pts min.). @ -no X-rays interpreted by me (1pt min.). @ -no CT interpreted by me (1pt min.). @ -no U/S interpreted by me (1pt. min.). @ -no What testing was considered but not performed or refused? (CT, X-rays, U/S, labs)? Why? @ -none What meds were considered but not given or refused? Why? @ -none Did you discuss the management of the patient with other professionals (professionals i.e. PATRICK Brown, MOTION PICTURE SCENE BUILDER, lab, RT, psych nurse, social group worker, yeast cake cutter, teacher, wildlife officer, pillowcase turner)? Give summary @ -no Was smoking cessation discussed for >3mins.? @ -no Was critical care preformed (if so, how long)? @ -no Were there social determinants of health that impacted care today? How? (Homelessness, low income, unemployed, alcoholism, drug addiction, trans portation, low edu. Level, literacy, decrease access to med. care, half-way, rehab)? @ -none Was there de-escalation of care discussed even if they declined (Discuss DNR or withdrawal of care, Hospice)? DNR status @ -no What co-morbidities impacted this encounter? (DM, HTN, Smoking, COPD, CAD, Cancer, CVA, ARF, Chemo, Hep., AIDS, mental health diagnosis, sleep apnea, morbid obesity)? @ -none Was patient admitted / discharged? Hospital course, mention meds given and route, prescriptions, significant lab abnormalities, going to OR and other pertinent info. @ - 59 male to ER for evaluation of significant elevated blood sugar and hypoglycemia. Patient can be discharged home back to facility with improved blood sugar, continues to refuse testing Discharge Undiagnosed new problem with uncertain prognosis? @ -no Drug Therapy requiring intensive monitoring for toxicity (Heparin, Nitro, Insulin, Cardizem)? @ -no Were any procedures done? @ -no Diagnosis/symptom? @ -Hypoglycemia Acute, or Chronic, or Acute on Chronic? @ -Acute Uncomplicated (without systemic symptoms) or Complicated (systemic symptoms)? @ -Complicated Side effects of treatment? @ -no Exacerbation, Progression, or Severe Exacerbation? @ -exacerbation Poses a threat to life or bodily function? How? (Chest pain, [place], [place], pneumonia, PE, COPD, DKA, ARF, appy, cholecystitis, CVA, Diverticulitis, Homicidal, Suicidal, threat to staff... and all critical care pts) @ -no Medical Decision Making - Medical Decision Making 59 male to ER for evaluation of significant elevated blood sugar and hypoglycemia. Patient can be discharged home back to facility with improved blood sugar, continues to refuse testing - Lab Data Result diagrams: 02/01/24 18:23 02/01/24 18:23 Lab Results 02/01/24 02/01/24 02/01/24 Range/Units 17:44 18:23 18:23 WBC 10.1 (3.8-10.6) k/uL RBC 4.75 (4.30-5.90) m/uL Hgb 16.1 (13.0-17.5) gm/dL Hct 46.9 (39.0-53.0) % MCV 98.7 (80.0-100.0) fL MCH 33.8 (25.0-35.0) pg MCHC 34.2 (31.0-37.0) g/dL RDW 12.8 (11.5-15.5) % Plt Count 135 L (150-450) k/uL MPV 8.4 Neutrophils % 59 % Lymphocytes % 29 % Monocytes % 10 % Eosinophils % 1 % Basophils % 1 % Neutrophils # 5.9 (1.3-7.7) k/uL Lymphocytes # 2.9 (1.0-4.8) k/uL Monocytes # 1.0 (0-1.0) k/uL Eosinophils # 0.1 (0-0.7) k/uL Basophils # 0.1 (0-0.2) k/uL VBG pH (7.31-7.41) VBG pCO2 (37-51) mmHg VBG HCO3 (24-28) mmol/L Sodium 139 (137-145) mmol/L Potassium 4.5 (3.5-5.1) mmol/L Chloride 104 (98-107) mmol/L Carbon Dioxide 26 (22-30) mmol/L Anion Gap 9 mmol/L BUN 24 H (9-20) mg/dL Creatinine 0.74 (0.66-1.25) mg/dL Est GFR (CKD-EPI)AfAm >90 (>60 ml/min/1.73 sqM) Est GFR (CKD-EPI)NonAf >90 (>60 ml/min/1.73 sqM) Glucose 289 H (74-99) mg/dL POC Glucose (mg/dL) 307 H (70-110) mg/dL POC Glu Knowledge Architect ID Brittany Landis Calcium 9.1 (8.4-10.2) mg/dL Phosphorus 3.6 (2.5-4.5) mg/dL Magnesium 1.9 (1.6-2.3) mg/dL Total Bilirubin 0.6 (0.2-1.3) mg/dL AST 35 (17-59) U/L ALT 25 (4-49) U/L Alkaline Phosphatase 82 (38-126) U/L Troponin I (0.000-0.034) ng/mL Total Protein 7.3 (6.3-8.2) g/dL Albumin 4.3 (3.5-5.0) g/dL Acetone, Qual Negative (Negative) 02/01/24 02/01/24 Range/Units 18:23 18:23 WBC (3.8-10.6) k/uL RBC (4.30-5.90) m/uL Hgb (13.0-17.5) gm/dL Hct (39.0-53.0) % MCV (80.0-100.0) fL MCH (25.0-35.0) pg MCHC (31.0-37.0) g/dL RDW (11.5-15.5) % Plt Count (150-450) k/uL MPV Neutrophils % % Lymphocytes % % Monocytes % % Eosinophils % % Basophils % % Neutrophils # (1.3-7.7) k/uL Lymphocytes # (1.0-4.8) k/uL Monocytes # (0-1.0) k/uL Eosinophils # (0-0.7) k/uL Basophils # (0-0.2) k/uL VBG pH 7.39 (7.31-7.41) VBG pCO2 45 (37-51) mmHg VBG HCO3 27 (24-28) mmol/L Sodium (137-145) mmol/L Potassium (3.5-5.1) mmol/L Chloride (98-107) mmol/L Carbon Dioxide (22-30) mmol/L Anion Gap mmol/L BUN (9-20) mg/dL Creatinine (0.66-1.25) mg/dL Est GFR (CKD-EPI)AfAm (>60 ml/min/1.73 sqM) Est GFR (CKD-EPI)NonAf (>60 ml/min/1.73 sqM) Glucose (74-99) mg/dL POC Glucose (mg/dL) (70-110) mg/dL POC Glu Knowledge Architect ID Calcium (8.4-10.2) mg/dL Phosphorus (2.5-4.5) mg/dL Magnesium (1.6-2.3) mg/dL Total Bilirubin (0.2-1.3) mg/dL AST (17-59) U/L ALT (4-49) U/L Alkaline Phosphatase (38-126) U/L Troponin I <0.012 (0.000-0.034) ng/mL Total Protein (6.3-8.2) g/dL Albumin (3.5-5.0) g/dL Acetone, Qual (Negative) Disposition Clinical Impression: Hyperglycemia Disposition: HOME SELF-CARE Condition: Good Instructions (If sedation given, give patient instructions): Diabetic Hyperglycemia (ED) Is patient prescribed a controlled substance at d/c from ED?: No Referrals: None,Stated [REFERRING] - 1-2 days Time of Disposition: 19:50
[2024-02-01 18:37] LABS: VBG PH 7.39 (7.31-7.41)
[2024-02-01 18:38] LABS: Basophils # (A) 0.1 k/uL (0-0.2); Basophils % (A) 1 %; Eosinophils # (A) 0.1 k/uL (0-0.7); Eosinophils % (A) 1 %; HCT 46.9 % (39.0-53.0); HGB 16.1 gm/dL (13.0-17.5); Lymphocytes # (A) 2.9 k/uL (1.0-4.8); Lymphocytes % (A) 29 %; MCH 33.8 pg (25.0-35.0); MCHC 34.2 g/dL (31.0-37.0); MCV 98.7 fL (80.0-100.0); Mean Platelet Volume 8.4; Monocytes % (A) 10 %; Neutrophils # (A) 5.9 k/uL (1.3-7.7); Neutrophils % (A) 59 %; Platelet Count 135 k/uL (150-450); RBC 4.75 m/uL (4.30-5.90); RDW 12.8 % (11.5-15.5); WBC 10.1 k/uL (3.8-10.6)
[2024-02-01 19:04] LABS: ALT 25 U/L (4-49); AST 35 U/L (17-59); African American GFR (CKD) >90 (>60 ml/min/1.73 sqM); Albumin 4.3 g/dL (3.5-5.0); Alkaline Phosphatase 82 U/L (38-126); Anion Gap 9 mmol/L; Blood Urea Nitrogen 24 mg/dL (9-20); Calcium 9.1 mg/dL (8.4-10.2); Carbon Dioxide 26 mmol/L (22-30); Chloride 104 mmol/L (98-107); Glucose 289 mg/dL (74-99); Magnesium 1.9 mg/dL (1.6-2.3); Non-African American GFR(CKD) >90 (>60 ml/min/1.73 sqM); Phosphorus 3.6 mg/dL (2.5-4.5); Potassium 4.5 mmol/L (3.5-5.1); Sodium 139 mmol/L (137-145); Total Bilirubin 0.6 mg/dL (0.2-1.3); Total Protein 7.3 g/dL (6.3-8.2)
[2024-02-01] MEDS: SODIUM CHLORIDE 0.9% 1,000 ML IV STA (19:18)
[2024-02-01] MEDS ORDERED: traMADol 50 MG STARTER PACK 3 TAB BTL PO STA (19:54)
[2024-02-01 21:06] VITALS: BP 149/78; PULSE 85; RESP 20
== END 2024-02-01 21:05 | disposition home or self-care (01) ==
LOC: EC 17:32
DX: E11.65 Type 2 diabetes mellitus with hyperglycemia (principal); F17.200 Nicotine dependence, unspecified, uncomplicated; Z88.8 Allergy status to other drugs, medicaments and biological substances; Z88.6 Allergy status to analgesic agent
CPT/HCPCS: 36415; 80053; 82009; 82803; 83735; 84100; 84484; 85025; 99284

== ENCOUNTER 2024-06-19 20:00 | Inpatient (IN) | payer MEDICARE, MEDICAID ==
--- NOTE | 2024-06-19 20:12 | ED ---
Psych HPI <Whitney Rios - Last Filed: 06/20/24 06:00> - General Source: patient, EMS, RN notes reviewed, old records reviewed Mode of arrival: EMS Limitations: no limitations - History of Present Illness MD Complaint: suicidal ideation, feels depressed, altered mental status -: unknown Associated Psychiatric Symptoms: depression, suicidal ideation History of same: Yes Quality: constant Improves With: none Worsens With: none <Papo Coleman - Last Filed: 07/01/24 12:59> - General Chief Complaint: Psychiatric Symptoms Stated Complaint: Mental Health Time Seen by Provider: 06/19/24 20:08 - History of Present Illness Initial Comments: This is a 59-year-old male to the ER for evaluation, patient has a for psychiatric evaluation under petition (Papo Coleman) - Related Data Home Medications Medication Instructions Recorded Confirmed Acetaminophen [Tylenol Arthritis] 650 mg PO Q8H PRN 12/02/19 06/19/24 Meclizine [Antivert] 12.5 mg PO BID PRN 04/01/23 06/19/24 guaiFENesin-DM 600/30MG [Mucinex 2 tab PO Q12HR PRN 04/01/23 06/19/24 Dm] Albuterol Nebulized [Ventolin 2.5 mg INHALATION RT-QID PRN 11/06/23 06/19/24 Nebulized] Aspirin EC [Ecotrin Low Dose] 81 mg PO DAILY 11/06/23 06/19/24 Diltiazem Cd [Cardizem CD] 120 mg PO DAILY 11/06/23 06/19/24 Diltiazem Cd [Cardizem CD] 240 mg PO DAILY 11/06/23 06/19/24 Ibuprofen [Motrin] 600 mg PO Q8H PRN 11/06/23 06/19/24 Metoprolol Tartrate [Lopressor] 50 mg PO BID 11/06/23 06/19/24 Pantoprazole [Protonix] 40 mg PO DAILY 11/06/23 06/19/24 hydrOXYzine pamoate [Vistaril] 50 mg PO Q8H PRN 11/06/23 06/19/24 Insulin NPH Human Isophane 40 units SQ TID-W/MEALS 09/18/24 09/18/24 [NovoLIN N Flexpen] [place]-3 Acid Ethyl Esters [Lovaza] 1 gm PO BID 06/19/24 06/19/24 Previous Rx's Medication Instructions Recorded Divalproex ER [Depakote ER] 1,500 mg PO HS@2100 30 Days #90 tab 04/12/23 QUEtiapine [SEROquel] 800 mg PO HS 30 Days #60 tab 04/12/23 lamoTRIgine [LaMICtal] 100 mg PO DAILY 30 Days #30 tab 04/12/23 Folic Acid 1 mg PO DAILY #30 tab 11/08/23 Allergies Allergy/AdvReac Type Severity Reaction Status Date / Time amlodipine Allergy Unknown Verified 06/19/24 20:45 aripiprazole [From Abilify] Allergy Unknown Verified 06/19/24 20:45 atorvastatin [From Lipitor] Allergy Unknown Verified 06/19/24 20:45 benztropine [From Cogentin] Allergy Unknown Verified 06/19/24 20:45 chlorpromazine Allergy Unknown Verified 06/19/24 20:45 [From Thorazine] fluphenazine [From Prolixin] Allergy Unknown Verified 06/19/24 20:45 gabapentin Allergy Unknown Verified 06/19/24 20:45 haloperidol [From Haldol] Allergy Unknown Verified 06/19/24 20:45 insulin glargine Allergy Unknown Verified 06/19/24 20:45 [From Lantus] metformin Allergy Unknown Verified 06/19/24 20:45 olanzapine [From Zyprexa] Allergy Unknown Verified 06/19/24 20:45 paliperidone [From Invega] Allergy Unknown Verified 06/19/24 20:45 thiothixene Allergy Unknown Verified 06/19/24 20:45 ziprasidone [From Geodon] Allergy Unknown Verified 06/19/24 20:45 ABILIFY INJECTION Allergy Unknown Uncoded 02/01/24 17:43 INVEGA INJECTION Allergy Unknown Uncoded 02/01/24 17:43 Review of Systems ROS Other: All systems not noted in ROS Statement are negative. <Whitney Rios P - Last Filed: 06/20/24 06:00> ROS Other: All systems not noted in ROS Statement are negative. <Papo Coleman - Last Filed: 07/01/24 12:59> ROS Statement: Those systems with pertinent positive or pertinent negative responses have been documented in the HPI. Past Medical History Past Medical History: Asthma, COPD, CVA/TIA, Diabetes Mellitus, Hypertension, Thyroid Disorder Additional Past Medical History / Comment(s): Tremors History of Any Multi-Drug Resistant Organisms: None Reported Past Surgical History: Cholecystectomy Additional Past Surgical History / Comment(s): LEFT EYE Past Anesthesia/Blood Transfusion Reactions: No Reported Reaction Past Psychological History: Anxiety, Bipolar, Depression, Schizoaffective Disorder Smoking Status: Current every day smoker Past Alcohol Use History: None Reported Past Drug Use History: None Reported - Past Family History Father Family Medical History: Unable to Obtain <Papo Coleman - Last Filed: 07/01/24 12:59> General Exam Limitations: no limitations General appearance: alert, in no apparent distress Head exam: Present: atraumatic, normocephalic, normal inspection Eye exam: Present: normal appearance, PERRL, EOMI. Absent: scleral icterus, conjunctival injection, periorbital swelling ENT exam: Present: normal exam, mucous membranes moist Neck exam: Present: normal inspection. Absent: tenderness, meningismus, lymphadenopathy Respiratory exam: Present: normal lung sounds bilaterally. Absent: respiratory distress, wheezes, rales, rhonchi, stridor Cardiovascular Exam: Present: regular rate, normal rhythm, normal heart sounds. Absent: systolic murmur, diastolic murmur, rubs, gallop, clicks GI/Abdominal exam: Present: soft, normal bowel sounds. Absent: distended, tenderness, guarding, rebound, rigid Extremities exam: Present: normal inspection, full ROM, normal capillary refill. Absent: tenderness, pedal edema, joint swelling, calf tenderness Back exam: Present: normal inspection Neurological exam: Present: alert, oriented X3, CN II-XII intact Psychiatric exam: Present: normal affect, normal mood Skin exam: Present: warm, dry, intact, normal color. Absent: rash <Papo Coleman - Last Filed: 07/01/24 12:59> Course <Papo Coleman - Last Filed: 07/01/24 12:59> Vital Signs 06/19/24 06/20/24 06/20/24 20:26 05:27 12:36 Temperature 97.8 F Pulse Rate 59 L 53 L 65 Respiratory 16 18 16 Rate Blood Pressure 152/70 96/66 149/63 O2 Sat by Pulse 100 99 98 Oximetry 06/20/24 06/20/24 19:24 21:27 Temperature 98.4 F Pulse Rate 88 92 Respiratory 18 16 Rate Blood Pressure 130/75 129/74 O2 Sat by Pulse 98 98 Oximetry - Reevaluation(s) Reevaluation #1: 06/19/24 20:44 Medical records reviewed (Papo Coleman) Reevaluation #2: 06/19/24 20:44 Medically cleared for psychiatric evaluation (Papo Coleman) Reevaluation #4: Differential Mental Health Depression, anxiety, bipolar, psychosis, schizophrenia, borderline personality, situational depression, adjustment disorder, behavioral disorder, brain tumor, malingering, substance abuse, encephalopathy, medication reaction, dementia, hypothyroidism, degenerative neurologic disorder, lupus.... This is not meant to be all-inclusive list (Papo Coleman) Medical Decision Making <Whitney Rios - Last Filed: 06/20/24 06:00> - Lab Data Result diagrams: 06/21/24 10:48 06/21/24 10:48 <Papo Coleman - Last Filed: 07/01/24 12:59> - Medical Decision Making Was pt. sent in by a medical professional or institution (, PA, MATERIAL HANDLER FLOORPERSON, urgent care, hospital, or usp...) When possible be specific @ -No Did you speak to anyone other than the patient for history (EMS, parent, family, police, friend...)? What history was obtained from this source @ -EMS Did you review nursing and triage notes (agree or disagree)? Why? @ -I reviewed and agree with nursing and triage notes Were old charts reviewed (outside hosp., previous admission, EMS record, old EKG, old radiological studies, urgent care reports/EKG's, usp records)? Report findings @ -No old charts were reviewed Differential Diagnosis (chest pain, altered mental status, abdominal pain women, abdominal pain men, vaginal bleeding, weakness, fever, dyspnea, syncope, headache, dizziness, GI bleed, back pain, seizure, CVA, palpatations, mental health)? @ -Differential Altered Mental Status: Hypoglycemia, DKA, hypercapnia, ETOH, overdose, CO poisoning, trauma, myxedema coma, HTN encephalopathy, infection, encephalitis, psychosis, intercranial hemorrhage, hepatic encephalopathy, meningitis, CVA, this is not meant to be an all-inclusive list EKG interpreted by me (3pts min.). @ -As above X-rays interpreted by me (1pt min.). @ -None done CT interpreted by me (1pt min.). @ -None done U/S interpreted by me (1pt. min.). @ -None done What testing was considered but not performed or refused? (CT, X-rays, U/S, labs)? Why? @ -None What meds were considered but not given or refused? Why? @ -None Did you discuss the management of the patient with other professionals (professionals i.e. , PA, MATERIAL HANDLER FLOORPERSON, lab, RT, psych nurse, web content & social media manager, instrument mechanic, teacher, promotion officer, manager case)? Give summary @ -No Was smoking cessation discussed for >3mins.? @ -No Was critical care preformed (if so, how long)? @ -No Were there social determinants of health that impacted care today? How? (Homelessness, low income, unemployed, alcoholism, drug addiction, transportation, low edu. Level, literacy, decrease access to med. care, senior living, rehab)? @ -No Was there de-escalation of care discussed even if they declined (Discuss DNR or withdrawal of care, Hospice)? DNR status @ -No What co-morbidities impacted this encounter? (DM, HTN, Smoking, COPD, CAD, Cancer, CVA, ARF, Chemo, Hep., AIDS, mental health diagnosis, sleep apnea, morbid obesity)? @ -None Was patient admitted / discharged? Hospital course, mention meds given and route, prescriptions, significant lab abnormalities, going to OR and other pert inent info. @ -Discharged back to care facility Patient was medically cleared for evaluation by EPS and was evaluated. EPS reached out to the patient's care facility who stated that patient is allowed off grounds and usually walks to a convenience store. Today he did not come back on time and police were called to help locate him. EMS arrived and noted that the patient was hyperglycemic and brought him to the emergency department due to the hyperglycemia. He was petitioned by police due to his delusions. Per caregivers at the care facility these are fixed delusions unchanged recently he has no change from his baseline. They do not feel he needs a psychiatric evaluation or hospitalization and are comfortable with returning home. Glycemia was treated with insulin patient was cleared for discharge back to care facility. Undiagnosed new problem with uncertain prognosis? @ -No Drug Therapy requiring intensive monitoring for toxicity (Heparin, Nitro, Insulin, Cardizem)? @ -No Were any procedures done? @ -No Diagnosis/symptom? @ -Hyperglycemia Acute, or Chronic, or Acute on Chronic? @ -Default Uncomplicated (without systemic symptoms) or Complicated (systemic symptoms)? @ -Default Side effects of treatment? @ -No Exacerbation, Progression, or Severe Exacerbation? @ -No Poses a threat to life or bodily function? How? (Chest pain, [place], [place], pneumonia, PE, COPD, DKA, ARF, appy, cholecystitis, CVA, Diverticulitis, Homicidal, Suicidal, threat to staff... and all critical care pts) @ -No (Whitney Rios) - Lab Data Lab Results 06/19/24 06/20/24 06/20/24 Range/Units 23:00 00:50 02:05 POC Glucose (mg/dL) 297 H 266 H 274 H (70-110) mg/dL POC Glu Central Supply Aide ID Dolly Jenkins Taylor Gibbs, Jackie SARS-CoV-2 (PCR) (Not Detectd) 06/20/24 06/20/24 Range/Units 11:31 17:24 POC Glucose (mg/dL) 250 H (70-110) mg/dL POC Glu Central Supply Aide ID Socorro Rivers SARS-CoV-2 (PCR) Not Detected (Not Detectd) Disposition Is patient prescribed a controlled substance at d/c from ED?: No <Whitney Rios - Last Filed: 06/20/24 06:00> <Papo Coelman - Last Filed: 07/01/24 12:59> Clinical Impression: Hyperglycemia Disposition: HOME SELF-CARE Condition: Stable
[2024-06-19 23:03] LABS: Glucose,Whole Blood 297 mg/dL (70-110)
[2024-06-20 00:51] LABS: Glucose,Whole Blood 266 mg/dL (70-110)
[2024-06-20] MEDS: INSULIN REGULAR 100 UNIT/ML VIAL (IM/SQ) SQ ONE (00:53)
[2024-06-20 02:07] LABS: Glucose,Whole Blood 274 mg/dL (70-110)
[2024-06-20 11:32] LABS: Glucose,Whole Blood 250 mg/dL (70-110)
[2024-06-20] MEDS: QUEtiapine 400 MG TAB PO SCH (13:52)
[2024-06-20] MEDS ORDERED: OLANZapine 10 MG VIAL IM PRN (21:14)
[2024-06-20] MEDS ORDERED: OLANZapine 5 MG TAB PO PRN (21:14)
[2024-06-20] MEDS ORDERED: MAG HYDROX/AL HYDROX/SIMETH 355 ML BOTTLE PO PRN (21:15)
[2024-06-20] MEDS ORDERED: MAGNESIUM HYDROXIDE 2,400 MG/30 ML CUP PO PRN (21:15)
[2024-06-20] MEDS ORDERED: ALBUTEROL NEBULIZED 2.5 MG/3 ML INHALATION PRN (22:35)
[2024-06-20] MEDS ORDERED: hydrOXYzine HCL 25 MG TAB PO PRN (22:35)
[2024-06-20] MEDS: DIVALPROEX ER 500 MG TAB.ER.24H PO SCH (23:54)
[2024-06-21] MEDS ORDERED: DEXTROSE 50% SYRINGE 50 ML IVP PRN ×2 (09:18)
[2024-06-21] MEDS: DILTIAZEM CD 120 MG CAP.ER.24H PO SCH (09:55)
[2024-06-21] MEDS: PANTOPRAZOLE 40 MG TABLET PO SCH (09:55)
[2024-06-21] MEDS: METOPROLOL TARTRATE 50 MG TAB PO SCH (09:55)
[2024-06-21] MEDS: lamoTRIgine 100 MG TAB PO SCH (09:56)
[2024-06-21] MEDS: ASPIRIN 81 MG PO SCH (09:56)
[2024-06-21] MEDS: DILTIAZEM CD 240 MG CAP.ER.24H PO SCH (09:56)
[2024-06-21] MEDS: FOLIC ACID 1 MG TAB PO SCH (09:56)
[2024-06-21] MEDS: NICOTINE 14MG/24HR PATCH TRANSDERM SCH (09:57)
[2024-06-21 09:59] LABS: Glucose,Whole Blood 243 mg/dL (70-110)
[2024-06-21] MEDS: NON FORMULARY DRUG (Omega-3 Acid Ethyl Esters [Lovaza] 1 GM Capsule) PO SCH (10:04)
--- NOTE | 2024-06-21 10:09 | P.HP ---
Psychiatric H&P - . H&P Date: 06/21/24 History & Physical: Allergies Allergy/AdvReac Type Severity Reaction Status Date / Time amlodipine Allergy Unknown Verified 06/19/24 20:45 aripiprazole [From Abilify] Allergy Unknown Verified 06/19/24 20:45 atorvastatin [From Lipitor] Allergy Unknown Verified 06/19/24 20:45 benztropine [From Cogentin] Allergy Unknown Verified 06/19/24 20:45 chlorpromazine Allergy Unknown Verified 06/19/24 20:45 [From Thorazine] fluphenazine [From Prolixin] Allergy Unknown Verified 06/19/24 20:45 gabapentin Allergy Unknown Verified 06/19/24 20:45 haloperidol [From Haldol] Allergy Unknown Verified 06/19/24 20:45 insulin glargine Allergy Unknown Verified 06/19/24 20:45 [From Lantus] metformin Allergy Unknown Verified 06/19/24 20:45 olanzapine [From Zyprexa] Allergy Unknown Verified 06/19/24 20:45 paliperidone [From Invega] Allergy Unknown Verified 06/19/24 20:45 thiothixene Allergy Unknown Verified 06/19/24 20:45 ziprasidone [From Geodon] Allergy Unknown Verified 06/19/24 20:45 ABILIFY INJECTION Allergy Unknown Uncoded 02/01/24 17:43 INVEGA INJECTION Allergy Unknown Uncoded 02/01/24 17:43 Vital Signs Temp 98.4 F 06/21/24 07:16 Pulse 75 06/21/24 07:16 Resp 16 06/21/24 07:16 BP 133/63 06/21/24 07:16 Pulse Ox 100 06/20/24 22:53 FiO2 Intake & Output 06/20/24 06/21/24 06/21/24 18:59 06:59 18:59 Weight 71.5 kg Laboratory Last Values POC Glucose (mg/dL) 243 mg/dL (70-110) H 06/21/24 09:57 POC Glu Knock Up Assembler ID Kati Heard 06/21/24 09:57 SARS-CoV-2 (PCR) Not Detected (Not Detectd) 06/20/24 17:24 06/21/24 10:09 IDENTIFYING DATA: Patient is a 58-year-old, single white male, who lives in [place], [place] C/C: I dont like the [facility] home. HPI: The patient noted that he is not being treated right at the [facility] home he is living in. He also noted having nightmares. He has been experiencing, boom, bang and slaps, on his head. He noted that he has multiple lumps on his head. He complaints of having strange sexual thoughts and hears one and two-words voices. He has been having these symptoms for past 2 months. He has been hearing music for several years. The patient has difficulty explaining his symptoms in a coherent manner because of losing the train of thoughts and jumping to a different subject. He is not hyperverbal or having flight of ideas. The patient noted that he is compliant with medications but doubts that he is given right dosages. The patient noted that he takes Seroquel 800 mg, and Depakote 500mg three tablets and Amantadine 100mg. The patient noted seeing Dr. Frazier on internet at [facility] as an out-pt. His last visit was on 05/08/24. PPH: The patient noted that he had his first breakdown around age 21. The patient noted that he did nothing but lay in bed for 4 months. He was hospitalized for 6 months. The patient noted that the hospital is closed and now is called [facility]. He has had over 10 admissions to different hospitals since then. His last admission was here in 2022. He Patient has a history of schizoaffective disorder bipolar type. PMH: HTN, IDDM, Asthma, CVA, TIAs ALLERGIES: as per EMR DRUG AND ALCOHOL HISTORY: The patient denied. He stated that he used Alcohol and drugs long time ago. FAMILY HISTORY OF PSYCHIATRIC DISORDER: The patient denied. SOCIAL HISTORY: The patient was born and raised in [place], [place]. He grew-up with his two brothers. He finished [employer]. 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 He never . He has no children Objective: MSE: Alert and attentive. Orientation times three Dressed and Groomed: Appropriately. Pleasant and cooperative. Psychomotor Activity: Normal. Speech: Normal in tone, quality, and quantity. Mood: Depressed and anxious Affect: Appropriate. SI or HI: None. Perceptual disturbance: Auditory hallucinations and tactile hallucinations. Thought Content: Mild paranoia. No other delusional thinking noted. Thought Process: Mild loose associations when open ended conversation is held. Cognition: Intact Judgment and Insight: Poor AIMS: Normal Labs: Available labs reviewed. Diagnosis: Schizoaffective Disorder Plan and Recommendations: Continue current Medications. Monitor MS and side effects of medications and adjust medications accordingly. Provide supportive psychotherapy and psychoeducation. The patient provided psychoeducation. The patient to attend allen Milieu. EKG, Medication Consent with explanation of risk/benefits and side effects: Explained and obtained.
[2024-06-21] MEDS: INSULIN DETEMIR (LEVEMIR) 100 UNIT/ML SYR SQ SCH (10:20)
[2024-06-21 11:31] LABS: Basophils % (A) 1 %; Eosinophils # (A) 0.2 k/uL (0-0.7); Eosinophils % (A) 2 %; HCT 44.4 % (39.0-53.0); HGB 15.6 gm/dL (13.0-17.5); Lymphocytes # (A) 1.7 k/uL (1.0-4.8); Lymphocytes % (A) 25 %; MCH 35.1 pg (25.0-35.0); MCHC 35.2 g/dL (31.0-37.0); MCV 99.7 fL (80.0-100.0); Mean Platelet Volume 7.9; Monocytes % (A) 15 %; Neutrophils # (A) 3.7 k/uL (1.3-7.7); Neutrophils % (A) 55 %; Platelet Count 104 k/uL (150-450); RBC 4.45 m/uL (4.30-5.90); RDW 12.8 % (11.5-15.5); WBC 6.8 k/uL (3.8-10.6)
[2024-06-21] MEDS: INSULIN NPH 100 UNIT/ML 10 ML VIAL SQ SCH (11:38)
[2024-06-21 11:51] LABS: ALT 21 U/L (4-49); AST 30 U/L (17-59); African American GFR (CKD) >90 (>60 ml/min/1.73 sqM); Albumin 4.3 g/dL (3.5-5.0); Alkaline Phosphatase 116 U/L (38-126); Anion Gap 12 mmol/L; Blood Urea Nitrogen 19 mg/dL (9-20); Calcium 9.8 mg/dL (8.4-10.2); Carbon Dioxide 30 mmol/L (22-30); Chloride 97 mmol/L (98-107); Glucose 273 mg/dL (74-99); Non-African American GFR(CKD) >90 (>60 ml/min/1.73 sqM); Potassium 4.3 mmol/L (3.5-5.1); Sodium 139 mmol/L (137-145); Total Bilirubin 1.4 mg/dL (0.2-1.3)
[2024-06-21 12:44] LABS: Glucose,Whole Blood 276 mg/dL (70-110)
[2024-06-21] MEDS: INSULIN ASPART (NovoLOG) 100 UNIT/ML VIAL SQ SCH (12:45)
--- NOTE | 2024-06-21 13:16 | CONS ---
CONSULTATION REASON FOR CONSULTATION: Advice regarding asthma, COPD, and other medical issues. HISTORY OF PRESENT ILLNESS: This is a 59-year-old gentleman with a past medical history of multiple problems including asthma, COPD, who was admitted with schizoaffective disorder. The patient is listed in [facility]. There is no history of any fever, rigors, or chills. The patient is complaining of inguinal rash at this time. PAST MEDICAL HISTORY: Reviewed include asthma, COPD. Rest of the history and rest of the chart is also reviewed. HOME MEDICATIONS: Reviewed include insulin NPH. Dose and rest of medications reviewed. ALLERGIES: Multiple, reviewed include Norvasc. FAMILY HISTORY: Unable to obtain. SOCIAL HISTORY: No history of smoking or alcohol. REVIEW OF SYSTEMS: Fourteen-point review is negative except as mentioned earlier. PHYSICAL EXAMINATION: VITAL SIGNS: Pulse is 109, blood pressure 128/59, respirations 16. HEENT: Conjunctivae normal. NECK: No JVD. CARDIOVASCULAR: S1, S2. RESPIRATIONS: Breath sounds diminished at the bases. No rhonchi. No crackles. ABDOMEN: Soft. LEGS: No edema. No swelling. NERVOUS SYSTEM: No focal deficits. SKIN: Otherwise, inguinal rash present, minimal. LABORATORY DATA: Platelets 104. Rest of the labs are noted. ASSESSMENT: 1. Schizoaffective disorder. 2. Diabetes mellitus, type 2. 3. Mild thrombocytopenia. 4. Asthma, chronic obstructive pulmonary disease. 5. Cerebrovascular accident, transient ischemic attack history. 6. Hypertension. 7. Inguinal rash, possibly candidal. 8. Anxiety, bipolar, depression, schizoaffective disorder. RECOMMENDATIONS AND DISCUSSION: This is a 59-year-old gentleman presented with multiple medical issues. I recommend to continue the current medications and continue symptomatic treatment. I recommend consistent carb diet and as well as Accu-Cheks before meals and at bedtime. Resume the home medications. I would recommend clotrimazole for the local application. We will monitor the patient closely. Recommend close followup in the outpatient setting. Further recommendations to follow. If sugars are not controlled, we will adjust insulins later. MMODL / IJN: [id number] /
[2024-06-21] MEDS: CLOTRIMAZOLE 1% CREAM 30 GM TUBE TOPICAL SCH (15:02)
[2024-06-21] MEDS: ZINC OXIDE PASTE (Z-GUARD) 1 APPLIC TOPICAL SCH (15:03)
[2024-06-21 16:54] LABS: Glucose,Whole Blood 215 mg/dL (70-110)
[2024-06-21] MEDS: MECLIZINE 12.5 MG TAB PO PRN (18:42)
[2024-06-21 20:06] LABS: Glucose,Whole Blood 311 mg/dL (70-110)
[2024-06-21] MEDS: LORATADINE 10 MG TAB PO SCH (20:06)
[2024-06-21 20:12] LABS: Chol/HDL Ratio 4.76 Ratio; LDL Cholesterol,Calculated 99.6 mg/dL (0.0-131.0)
[2024-06-21] MEDS ORDERED: DIVALPROEX ER 500 MG TAB.ER.24H PO SCH (21:00)
[2024-06-22 07:50] LABS: Glucose,Whole Blood 110 mg/dL (70-110)
--- NOTE | 2024-06-22 10:29 | P.PN ---
Progress Note - Text Progress Note Date: 06/22/24 Interval history: Patient was seen laying in his bed this morning and was directable and agreeable to speak with promotion writer. Patient denied any overnight complaints, continues to speak negatively about his previous residence and other people that live there. Claims that he slept fairly last night, has a fair appetite. Denies any depression or anxiety at this time. At this time patient denies any suicidal or homicidal ideations intent or plan. Denies any Auditory or visual hallucinations. Patient denies any side effects from the medications and has been compliant with meds. Mental status exam: General Appearance: Patient appears to be thin, stated age is alert, directable, and attempts to be cooperative. Behavior: No agitated behavior. Patient is calm and directable, superficial Speech: Patient's speech is fluent and nonpressured. Mood/Affect: Mood is improving mildly, affect is congruent and constricted. Suicidality/Homicidality: Patient denies having any suicidal or homicidal ideation intent or plan. Perceptions: Patient denies any auditory or visual hallucinations. Though content/process: There is no evidence of any delusional thought content and thought process is linear and goal-directed. Memory and concentration: AOX3, grossly intact for the purposes of this session Judgment and insight: improving mildly Assessment/Plan: Continue with current diagnosis. Patient continues to meet criteria for inpatient psychiatric admission for symptom stabilization and saf ety. Patient will be maintained on current psychotropic medication regimen. Monitor for medication compliance and for any psychotropic medication side effects. Will continue to monitor ongoing response to treatment. Encouraged participation in milieu.
[2024-06-22 13:06] LABS: Glucose,Whole Blood 279 mg/dL (70-110)
[2024-06-22 17:42] LABS: Glucose,Whole Blood 188 mg/dL (70-110)
[2024-06-22] MEDS: FLUTICASONE NASAL 50MCG/SPRAY 16GM BTL EA NOSTRIL PRN (19:02)
[2024-06-22 20:34] LABS: Glucose,Whole Blood 184 mg/dL (70-110)
[2024-06-23 07:52] LABS: Glucose,Whole Blood 151 mg/dL (70-110)
[2024-06-23] MEDS: IBUPROFEN 600 MG TAB PO PRN (09:55)
[2024-06-23 12:57] LABS: Glucose,Whole Blood 168 mg/dL (70-110)
--- NOTE | 2024-06-23 15:07 | P.PN ---
Progress Note - Text Progress Note Date: 06/23/24 Interval history: Patient was seen laying in his bed this morning and was directable and agreeable to speak with proposal manager writer. Patient continues to be fairly preoccupied with his residential, rambles at times. Patient denied any overnight complaints. Claims that he slept fairly last night, has a fair appetite. Difficult to redirect at times. Denies any depression or anxiety at this time. At this time patient denies any suicidal or homicidal ideations intent or plan. Denies any Auditory or visual hallucinations. Patient denies any side effects from the medications and has been compliant with meds. Mental status exam: General Appearance: Patient appears to be thin, stated age is alert, directable, and attempts to be cooperative. Behavior: No agitated behavior. Patient is calm and directable, superficial Speech: Patient's speech is fluent and nonpressured. Mood/Affect: Mood is improving mildly, affect is congruent and constricted. Suicidality/Homicidality: Patient denies having any suicidal or homicidal ideation intent or plan. Perceptions: Patient denies any auditory or visual hallucinations. Though content/process: There is no evidence of any delusional thought content and thought process is linear and goal-directed. Memory and concentration: AOX3, grossly intact for the purposes of this session Judgment and insight: improving mildly Assessment/Plan: Continue with current diagnosis. Patient continues to meet criteria for inpatient psychiatric admission for symptom stabilization and safety. Patient will be maintained on current psychotropic medication regimen. Monitor for medication compliance and for any psychotropic medication side effects. Will continue to monitor ongoing response to treatment. Encouraged participation in milieu.
[2024-06-23 17:43] LABS: Glucose,Whole Blood 275 mg/dL (70-110)
[2024-06-23 20:02] LABS: Glucose,Whole Blood 199 mg/dL (70-110)
[2024-06-24 07:57] LABS: Glucose,Whole Blood 130 mg/dL (70-110)
[2024-06-24 12:36] LABS: Glucose,Whole Blood 200 mg/dL (70-110)
[2024-06-24] MEDS: ACETAMINOPHEN TAB 325 MG TAB PO PRN (12:38)
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
[2024-06-24 17:27] LABS: Glucose,Whole Blood 208 mg/dL (70-110)
[2024-06-24 20:18] LABS: Glucose,Whole Blood 214 mg/dL (70-110)
[2024-06-25 12:50] LABS: Glucose,Whole Blood 143 mg/dL (70-110)
--- NOTE | 2024-06-25 13:45 | P.PN ---
Progress Note - Text Progress Note Date: 06/25/24 Subjective: The patient noted feeling better but still expresses fear about going to the same [facility] home. He stated that there several bad people there. He states that the whole area around the [facility] home is drug infested. He noted that the police patrol lieutenant knows, Piping Design Specialist Jerad knows. He was told that most likely he would be going back to same [facility]. He did not take it nicely and got hostile and angry. The patient was provided support and reassurance. The patient is compliant with medications. He reported no side effects. Objective: MSE: Alert and attentive. Orientation times three. Dressed and Groomed: Appropriately. Pleasant and cooperative. Psychomotor Activity: Normal. Speech: Normal in tone, quality, and quantity. Mood: I am better Affect: Silly and inappropriate. SI or HI: None. Perceptual disturbance: The patient hears music and songs. Thought Content: Paranoid delusions. No other delusional thinking noted. Thought Process: Tangential with mild loose associations. Cognition: Intact Judgment and Insight: Poor. AIMS: Normal. Labs: No new labs. Diagnosis: No change Plan and Recommendations: Continue current Medications. Monitor MS and side effects of medications and adjust medications accordingly. Provide supportive psychotherapy. The patient provided psychoeducation and advised The patient to attend allen activities. Medication Consent with explanation of risk/benefits and side effects: Explained and obtained.
[2024-06-25 17:38] LABS: Appearance,Urine Clear (Clear); Bilirubin,Urine Negative (Negative); Blood,Urine Negative (Negative); Color,Urine Light Yellow; Glucose,Urine (UA) 4+ (Negative); Ketones,Urine Trace (Negative); Leukocyte Esterase,Urine Negative (Negative); Nitrite,Urine Negative (Negative); Protein,Urine Negative (Negative); Specific Gravity,Urine 1.026 (1.001-1.035)
[2024-06-25 17:40] LABS: Glucose,Whole Blood 302 mg/dL (70-110)
[2024-06-25 17:51] LABS: Amphetamine Screen,Urine Not Detected (NotDetected); Barbiturate Screen,Urine Not Detected (NotDetected); Benzodiazepines Screen,Urine Not Detected (NotDetected); Cocaine Screen,Urine Not Detected (NotDetected); Methadone Screen, Urine Not Detected (NotDetected); Opiate Screen,Urine Not Detected (NotDetected); Oxycodone Screen, Urine Not Detected (NotDetected); Phencyclidine Screen,Urine Not Detected (NotDetected); Tricyclic Antidepressant,Urine Detected (NotDetected); Urn Cannabinoid Scrn Not Detected (NotDetected)
[2024-06-25 19:57] LABS: Glucose,Whole Blood 253 mg/dL (70-110)
[2024-06-26 07:54] LABS: Glucose,Whole Blood 125 mg/dL (70-110)
[2024-06-26 13:01] LABS: Glucose,Whole Blood 197 mg/dL (70-110)
--- NOTE | 2024-06-26 15:35 | P.PN ---
Progress Note - Text Progress Note Date: 06/26/24 Subjective: The patient noted feeling better but still expresses fear about going to the same [facility] home. He told me that he is here to do a petition and no one is doing it. He wanted me to order Petition for him. He accused me of not doing my job. He was gently redirected to contact his Fresh Work Wrapper Layer and provided support. He said that he will do himself because a tree specialist will cost money. He had no other complaint. The patient is compliant with medications. He reported no side effects. Objective: MSE: Alert and attentive. Orientation times three. Dressed and Groomed: Appropriately. Pleasant and cooperative. Psychomotor Activity: Normal. Speech: Normal in tone, quality, and quantity. Mood: Angry. Affect: irritable and inappropriate. SI or HI: None. Perceptual disturbance: The patient hears music and songs. Thought Content: Paranoid delusions. No other delusional thinking noted. Thought Process: Tangential with mild loose associations. Cognition: Intact Judgment and Insight: Poor. AIMS: Normal. Labs: No new labs. Diagnosis: No change Plan and Recommendations: Continue current Medications. Monitor MS and side effects of medications and adjust medications accordingly. Provide supportive psychotherapy. The patient provided psychoeducation and advised The patient to attend allen activities. Medication Consent with explanation of risk/benefits and side effects: Explained and obtained.
[2024-06-26 17:36] LABS: Glucose,Whole Blood 168 mg/dL (70-110)
[2024-06-26 20:18] LABS: Glucose,Whole Blood 243 mg/dL (70-110)
[2024-06-27 08:03] LABS: Glucose,Whole Blood 83 mg/dL (70-110)
[2024-06-27 12:55] LABS: Glucose,Whole Blood 161 mg/dL (70-110)
--- NOTE | 2024-06-27 15:57 | P.PN ---
Progress Note - Text Progress Note Date: 06/27/24 Subjective: The patient reported doing fine. He was not angry, accusatory, or hostile. He appeared in good mood. The patient noted that he talked to [facility] worker and going to have a meeting with her and his guardian to decide where he should be going. He is firmly opposed to going back to the same shelter. He held a coherent goal directed conversation. The patient is compliant with medications. He reported no side effects. Objective: MSE: Alert and attentive. Orientation times three. Dressed and Groomed: Appropriately. Pleasant and cooperative. Psychomotor Activity: Normal. Speech: Normal in tone, quality, and quantity. Mood: Good. Affect: Appropriate to the mood. SI or HI: None. Perceptual disturbance: The patient hears music and songs. Thought Content: Paranoid delusions. No other delusional thinking noted. Thought Process: Normal. Cognition: Intact Judgment and Insight: Poor. AIMS: Normal. Labs: No new labs. Diagnosis: No change Plan and Recommendations: Continue current Medications. Monitor MS and side effects of medications and adjust medications accordingly. Provide supportive psychotherapy. The patient provided psychoeducation and advised The patient to attend allen activities. Medication Consent with explanation of risk/benefits and side effects: Explained and obtained.
[2024-06-27 17:47] LABS: Glucose,Whole Blood 128 mg/dL (70-110)
[2024-06-27 19:52] LABS: Glucose,Whole Blood 206 mg/dL (70-110)
[2024-06-28 08:21] LABS: Glucose,Whole Blood 99 mg/dL (70-110)
[2024-06-28 12:35] LABS: Glucose,Whole Blood 268 mg/dL (70-110)
--- NOTE | 2024-06-28 17:03 | P.PN ---
Progress Note - Text Progress Note Date: 06/28/24 Subjective: The patient reported doing fine. The patient waiting for the meeting with Guardian and the [facility]. He had no other complaints. The patient vehemently declines to be placed in the same [facility] home. He stated no way he is going to that drug infested neighborhood. He held a reasonable conversation. He reported sleeping and eating fine. He has been compliant with medications. He reported no side effects. Objective: MSE: Alert and attentive. Orientation times three. Dressed and Groomed: Appropriately. Pleasant and cooperative. Psychomotor Activity: Normal. Speech: Normal in tone, quality, and quantity. Mood: Good. Affect: Appropriate to the mood. SI or HI: None. Perceptual disturbance: The patient hears music and songs. Thought Content: Paranoia noted about his [facility] home.. No other delusional thinking noted. Thought Process: Normal. Cognition: Intact Judgment and Insight: Poor. AIMS: Normal. Labs: No new labs. Diagnosis: No change Plan and Recommendations: Continue current Medications. Monitor MS and side effects of medications and adjust medications accordingly. Provide supportive psychotherapy. The patient provided psychoeducation and advised The patient to attend allen activities.
[2024-06-28 17:25] LABS: Glucose,Whole Blood 236 mg/dL (70-110)
[2024-06-28 19:53] LABS: Glucose,Whole Blood 207 mg/dL (70-110)
[2024-06-29 08:00] LABS: Glucose,Whole Blood 195 mg/dL (70-110)
[2024-06-29 13:18] LABS: Glucose,Whole Blood 256 mg/dL (70-110)
--- NOTE | 2024-06-29 15:00 | P.PN ---
Progress Note - Text Interval history: Patient was seen and was directable and agreeable to speak with filing writer. []. At this time patient denies any suicidal or homicidal ideations intent or plan. Denies any Auditory or visual hallucinations. Patient denies any side effects from the medications and has been compliant with meds. Mental status exam: General Appearance: [Patient appears to be stated age is alert, directable, and cooperative.] Behavior: [No agitated behavior. Patient is calm and directable] Speech: Patient's speech is fluent and nonpressured. Mood/Affect: Mood is improving mildly, affect is congruent and constricted. Suicidality/Homicidality: Patient denies having any suicidal or homicidal ideation intent or plan. Perceptions: Patient denies any auditory or visual hallucinations. Though content/process: [There is no evidence of any delusional thought content and thought process is linear and goal-directed.] Memory and concentration: AOX3, grossly intact for the purposes of this session Judgment and insight: improving mildly Assessment/Plan: Continue with current diagnosis. Patient continues to meet criteria for inpatient psychiatric admission for symptom stabilization and safety.[Patient will be maintained on current psychotropic medication regimen.] Monitor for medication compliance and for any psychotropic medication side effects. Will continue to monitor ongoing response to treatment. Encouraged participation in milieu.
[2024-06-29 17:37] LABS: Glucose,Whole Blood 148 mg/dL (70-110)
[2024-06-29 20:18] LABS: Glucose,Whole Blood 269 mg/dL (70-110)
[2024-06-30 07:51] LABS: Glucose,Whole Blood 96 mg/dL (70-110)
[2024-06-30 13:00] LABS: Glucose,Whole Blood 149 mg/dL (70-110)
[2024-06-30 17:35] LABS: Glucose,Whole Blood 201 mg/dL (70-110)
[2024-06-30 20:27] LABS: Glucose,Whole Blood 437 mg/dL (70-110)
[2024-06-30 20:28] LABS: Glucose,Whole Blood 281 mg/dL (70-110)
--- NOTE | 2024-06-30 23:04 | P.PN ---
Progress Note - Text Interval history: Patient was seen and was directable and agreeable to speak with teletypewriter installer. []. At this time patient denies any suicidal or homicidal ideations intent or plan. Denies any Auditory or visual hallucinations. Patient denies any side effects from the medications and has been compliant with meds. Mental status exam: General Appearance: [Patient appears to be stated age is alert, directable, and cooperative.] Behavior: [No agitated behavior. Patient is calm and directable] Speech: Patient's speech is fluent and nonpressured. Mood/Affect: Mood is improving mildly, affect is congruent and constricted. Suicidality/Homicidality: Patient denies having any suicidal or homicidal ideation intent or plan. Perceptions: Patient denies any auditory or visual hallucinations. Though content/process: [There is no evidence of any delusional thought content and thought process is linear and goal-directed.] Memory and concentration: AOX3, grossly intact for the purposes of this session Judgment and insight: improving mildly Assessment/Plan: Continue with current diagnosis. Patient continues to meet criteria for inpatient psychiatric admission for symptom stabilization and safety.[Patient will be maintained on current psychotropic medication regimen.] Monitor for medication compliance and for any psychotropic medication side effects. Will continue to monitor ongoing response to treatment. Encouraged participation in milieu.
[2024-07-01 07:54] LABS: Glucose,Whole Blood 184 mg/dL (70-110)
[2024-07-01 12:47] LABS: Glucose,Whole Blood 158 mg/dL (70-110)
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
[2024-07-01 17:32] LABS: Glucose,Whole Blood 200 mg/dL (70-110)
[2024-07-01 19:56] LABS: Glucose,Whole Blood 215 mg/dL (70-110)
[2024-07-02 07:53] LABS: Glucose,Whole Blood 160 mg/dL (70-110)
[2024-07-02 12:14] VITALS: BMI 22.9
[2024-07-02 12:38] LABS: Glucose,Whole Blood 220 mg/dL (70-110)
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
[2024-07-02 17:47] LABS: Glucose,Whole Blood 177 mg/dL (70-110)
[2024-07-02 20:08] LABS: Glucose,Whole Blood 201 mg/dL (70-110)
[2024-07-03 06:28] LABS: Glucose,Whole Blood 77 mg/dL (70-110)
[2024-07-03 07:50] LABS: Glucose,Whole Blood 111 mg/dL (70-110)
[2024-07-03 12:50] LABS: Glucose,Whole Blood 249 mg/dL (70-110)
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
[2024-07-03 17:43] LABS: Glucose,Whole Blood 219 mg/dL (70-110)
[2024-07-03 19:41] LABS: Glucose,Whole Blood 214 mg/dL (70-110)
[2024-07-04 07:45] LABS: Glucose,Whole Blood 84 mg/dL (70-110)
[2024-07-04 12:45] LABS: Glucose,Whole Blood 162 mg/dL (70-110)
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
[2024-07-04 17:34] LABS: Glucose,Whole Blood 293 mg/dL (70-110)
[2024-07-04 20:34] LABS: Glucose,Whole Blood 226 mg/dL (70-110)
[2024-07-05 07:44] LABS: Glucose,Whole Blood 124 mg/dL (70-110)
[2024-07-05 11:18] LABS: Glucose,Whole Blood 302 mg/dL (70-110)
--- NOTE | 2024-07-05 11:39 | P.PN ---
Progress Note - Text Progress Note Date: 07/05/24 Interval History: Patient was seen in his room, and was directable and agreeable to speak with nikia colorado at the bedside. The patient stated that he is alright today. He seemed to be preoccupied making his bed. Manager Private explained to the patient that I would be taking over his care, as Dr Moss's last day was yesterday, patient agreeable, and verbalized understanding. The patient stated that he is sleeping well, and his appetite is good. Manager Private discussed discharge with the patient, and the patient stated that he does not want to go back to where he came from. He claims it is a "hell hole". Patient offered no other complaints. At this time patient denies any suicidal or homicidal ideations, intent or plan. Patient endorses auditory hallucinations of music, he states he has heard this for 19 years, denies visual hallucinations and denies any paranoia or delusions. Patient denies any side effects from the medications and has been compliant with meds. Mental Status Exam General Appearance: [Patient appears to be older than stated age is alert, directable, and cooperative.] Behavior: [Patient is calmly seated without any agitated behavior.] Speech: Patient's speech is fluent and nonpressured. Mood/Affect: Mood is good, affect is congruent and constricted.improving Suicidality/Homicidality: Patient denies having any suicidal or homicidal ideation intent or plan. Perceptions: Patient denies any visual hallucinations and endorses auditory hallucinations of music. Though content/process: There is no evidence of any delusional thought content and thought process is linear and goal-directed. Memory and concentration: AOX3, grossly intact for the purposes of this session Judgment and insight: chronically poor Assessment Schizoaffective disorder Plan: -Patient continues to meet criteria for inpatient psychiatric admission for symptom stabilization and safety. -Medications: Seroquel 800mg PO qhs for mood/sleep, depakote ER 1500 po qhs for psychosis, lamictal 100mg po daily for mood stabilization -When necessary Ativan and Haldol for agitation/aggression. -NRT - not needed as patient does not smoke. -SW on board for discharge planning. Encouraged the patient to participate in milieu. Likely discharge back to [facility] Monday, if patient continues to improve.
[2024-07-05 17:20] LABS: Glucose,Whole Blood 206 mg/dL (70-110)
[2024-07-05 19:58] LABS: Glucose,Whole Blood 216 mg/dL (70-110)
[2024-07-06 08:10] LABS: Glucose,Whole Blood 158 mg/dL (70-110)
--- NOTE | 2024-07-06 09:49 | P.PN ---
Progress Note - Text Progress Note Date: 07/06/24 Interval history: Patient was seen laying in his bed today and was directable and agreeable to speak with poem writer. Claims that he is feeling tired this morning. We spoke briefly about his medications. He appears to be less focused on his delusions today, who was asking about potential discharge early next week. He continues to ask "where is [facility] putting me". He denies any depression or anxiety at this time, has been going to meals, mainly isolating in his room. At this time patient denies any suicidal or homicidal ideations intent or plan. Denies any Auditory or visual hallucinations. Patient denies any side effects from the medications and has been compliant with meds. Mental status exam: General Appearance: Patient appears to be thin, stated age is alert, directable, and times to be cooperative. Behavior: No agitated behavior. Patient is calm and directable Speech: Patient's speech is fluent and nonpressured. Mood/Affect: Mood is improving mildly, affect is congruent and constricted. Suicidality/Homicidality: Patient denies having any suicidal or homicidal ideation intent or plan. Perceptions: Patient denies any auditory or visual hallucinations. Though content/process: There is no evidence of any delusional thought content and thought process is linear and goal-directed. Rambles at times, improving Memory and concentration: AOX3, grossly intact for the purposes of this session Judgment and insight: improving mildly Assessment/Plan: Continue with current diagnosis. Patient continues to meet criteria for inpatient psychiatric admission for symptom stabilization and safety. Patient will be maintained on current psychotropic medication regimen. Monitor for medication compliance and for any psychotropic medication side effects. Will continue to monitor ongoing response to treatment. Encouraged participation in milieu.
[2024-07-06 13:01] LABS: Glucose,Whole Blood 215 mg/dL (70-110)
[2024-07-06 17:37] LABS: Glucose,Whole Blood 221 mg/dL (70-110)
[2024-07-06 20:13] LABS: Glucose,Whole Blood 287 mg/dL (70-110)
[2024-07-07 07:17] VITALS: RESP 16
[2024-07-07 07:56] LABS: Glucose,Whole Blood 78 mg/dL (70-110)
--- NOTE | 2024-07-07 12:20 | P.PN ---
Progress Note - Text Progress Note Date: 07/07/24 Interval history: Patient was seen laying in his bed today and was directable and agreeable to speak with telegraphic typewriter repairer. Patient was somewhat tired today. Claims that he is doing better overall, denied any overnight complaints. We spoke briefly about his medications. He needs to be focused on discharge early next week. He denies any depression or anxiety at this time, has been going to meals, mainly isolating in his room. At this time patient denies any suicidal or homicidal ideations intent or plan. Denies any Auditory or visual hallucinations. Patient denies any side effects from the medications and has been compliant with meds. Mental status exam: General Appearance: Patient appears to be thin, stated age is alert, directable, and times to be cooperative. Behavior: No agitated behavior. Patient is calm and directable Speech: Patient's speech is fluent and nonpressured. Mood/Affect: Mood is improving mildly, affect is congruent and constricted. Suicidality/Homicidality: Patient denies having any suicidal or homicidal ideation intent or plan. Perceptions: Patient denies any auditory or visual hallucinations. Though content/process: There is no evidence of any delusional thought content and thought process is linear and goal-directed. Rambles at times, improving Memory and concentration: AOX3, grossly intact for the purposes of this session Judgment and insight: improving mildly Assessment/Plan: Continue with current diagnosis. Patient continues to meet criteria for inpatient psychiatric admission for symptom stabilization and safety. Patient will be maintained on current psychotropic medication regimen. Monitor for medication compliance and for any psychotropic medication side effects. Will continue to monitor ongoing response to treatment. Encouraged participation in milieu.
[2024-07-07 12:48] LABS: Glucose,Whole Blood 311 mg/dL (70-110)
[2024-07-07 17:41] LABS: Glucose,Whole Blood 204 mg/dL (70-110)
[2024-07-07 20:08] LABS: Glucose,Whole Blood 291 mg/dL (70-110)
[2024-07-08 06:54] VITALS: BP 109/58; PULSE 51; TEMP 97.5
[2024-07-08 07:58] LABS: Glucose,Whole Blood 98 mg/dL (70-110)
--- NOTE | 2024-07-08 10:53 | XR ---
EXAMINATION TYPE: XR elbow limited RT DATE OF EXAM: 07/08/2024 COMPARISON: NONE HISTORY: 59 year-old male pain after fall TECHNIQUE: 2 views FINDINGS: No elbow joint effusion. There is either external artifact or some calcifications in the [place]o perficial soft tissues posteriorly of the mid arm. Clinically correlate. Otherwise, no acute fracture , subluxation, dislocation. IMPRESSION: 1. Only 2 views provided. No acute osseous abnormality seen. 2. Either external artifact versus calcifications in the superficial soft tissues posterior mid arm. Clinically correlate. [facility], , 07/08/2024 10:50 AM
--- NOTE | 2024-07-08 11:21 | P.DS ---
Providers Date of admission: 06/20/24 21:00 Expected date of discharge: 07/08/24 Attending physician: Dino Parson MD Consults: 06/20/24 21:15 Consult Physician Routine Consulting Provider: [facility] Hospitalists Consult Reason/Comments: History and Physical Do you want consulting provider notified?: Yes Primary care physician: Christian Friedman - Discharge Diagnosis(es) (1) Schizoaffective disorder Current Visit: Yes Status: Acute Priority: High Hospital Course: Admission HPI: Admission note was completed by Dr Moss "The patient noted that he is not being treated right at the [facility] home he is living in. He also noted having nightmares. He has been experiencing, boom, bang and slaps, on his head. He noted that he has multiple lumps on his head. He complaints of having strange sexual thoughts and hears one and two-words voices. He has been having these symptoms for past 2 months. He has been hearing music for several years. The patient has difficulty explaining his symptoms in a coherent manner because of losing the train of thoughts and jumping to a different subject. He is not hyperverbal or having flight of ideas. The patient noted that he is compliant with medications but doubts that he is given right dosages. The patient noted that he takes Seroquel 800 mg, and Depakote 500mg three tablets and Amantadine 100mg. The patient noted seeing Dr. Frazier on internet at [facility] as an out-pt. His last visit was on 05/08/24. PPH: The patient noted that he had his first breakdown around age 21. The patient noted that he did nothing but lay in bed for 4 months. He was hospitalized for 6 months. The patient noted that the hospital is closed and now is called [facility]. He has had over 10 admissions to different hospitals since then. His last admission was here in 2022. He Patient has a history of schizoaffective disorder bipolar type. " Hospital course: Upon admission to the unit patient was directable and agreeable to commence treatment and signed adult voluntary form. Patient kept to himself in his room however with time and treatment he eventually got along well with other patients on the unit and followed unit protocol. Patient was compliant with the medications and denied any side effects throughout hospital course. Patient was started on 800 mg of Seroquel nightly which was his home dose for mood stabilization/psychosis/sleep. Patient was also restarted back on his home dose of Depakote ER 1500 mg nightly for psychosis/mood stabilization, Lamictal 100 mg daily for mood stabilization. Patient spoke of his stressors and engaged in therapy both group and individual. Patient was also seen by medical team for history and physical exam. Throughout the course of the hospitalization patient gradually improved with regards to mood, anxiety, psychosis, delusions, sleep and returned back to their baseline level of functioning. On the day of discharge patient denied any suicidal or homicidal ideations intent or plan denied any auditory or visual hallucinations. Patient endorsed wanting to live for his health and his future. The patient denied any access to guns or weapons. Patient denied any paranoia. Patient does not have a significant history of substance abuse and was counseled on abstaining from all substances including alcohol and marijuana. Patient was also counseled on the medications and need for regular compliance and was encouraged to follow-up with their outpatient appointment for mental health and also for primary care. Patient will be discharged today back to the [place] [facility] via wheelchair and, he will be continued to be followed by [facility] closely. Mental status exam: General Appearance: Patient appears to be thin, stated age is alert, pleasant, and cooperative. Patient is in no acute distress and has improved hygiene and grooming Behavior: Patient is calmly seated without any agitated behavior. Speech: Patient's speech is fluent and nonpressured. Mood/Affect: Patient reports their mood is "good", affect is congruent Suicidality/Homicidality: Patient denies having any suicidal or homicidal ideation intent or plan. Perceptions: Patient denies any auditory or visual hallucinations. Though content/process: There is no evidence of any delusional thought content and thought process is linear and goal-directed. Memory and concentration: AOX3, grossly intact for the purposes of this session. Can spell "WORLD" backwards correctly. Judgment and insight: Chronically poor, however has improved with guarded prognosis Impression: Schizoaffective disorder Plan: -Continue with discharge today as patient has improved and stabilized psychiatrically and is not currently an imminent threat to himself and/or others. Patient will remain at chronically elevated risk for harm to self and/or others due to his impulsivity and chronic mental illness. -Continue medications: Seroquel 800 mg nightly for mood stabilization/psychosis/sleep, Depakote ER 1500 mg nightly for psychosis/mood stabilization, Lamictal 100 mg daily for mood stabilization. -Patient was counseled on the need for medication compliance and appropriate follow-up at mental health and also primary care for medical issues. Patient verbalized understanding and agreed. -Social work to help coordinate patient discharged today back to [place] [facility]. Social work also to arrange for patients follow up appointments with [facility] for psychiatric care along with follow up with primary care provider. -Patient counseled on abstaining from recreational drugs and marijuana and alcohol. Was informed/educated on the adverse effects on their physical and mental health. Patient verbally agreed and understood. -Patient was instructed to return to the hospital or seek immediate medical care if their psychiatric or medical symptoms do worsen or reoccur. Allergies Allergy/AdvReac Type Severity Reaction Status Date / Time amlodipine Allergy Unknown Verified 06/19/24 20:45 aripiprazole from Abilify Allergy Unknown Verified 06/19/24 20:45 atorvastatin from Lipitor Allergy Unknown Verified 06/19/24 20:45 benztropine from Cogentin Allergy Unknown Verified 06/19/24 20:45 chlorpromazine Allergy Unknown Verified 06/19/24 20:45 From Thorazine fluphenazine from Prolixin Allergy Unknown Verified 06/19/24 20:45 gabapentin Allergy Unknown Verified 06/19/24 20:45 haloperidol from Haldol Allergy Unknown Verified 06/19/24 20:45 insulin glargine Allergy Unknown Verified 06/19/24 20:45 From Lantus metformin Allergy Unknown Verified 06/19/24 20:45 olanzapine from Zyprexa Allergy Unknown Verified 06/19/24 20:45 paliperidone from Invega Allergy Unknown Verified 06/19/24 20:45 thiothixene Allergy Unknown Verified 06/19/24 20:45 ziprasidone from Geodon Allergy Unknown Verified 06/19/24 20:45 ABILIFY INJECTION Allergy Unknown Uncoded 02/01/24 17:43 INVEGA INJECTION Allergy Unknown Uncoded 02/01/24 17:43 Laboratory Results WBC 6.8 k/uL (3.8-10.6) 06/21/24 10:48 RBC 4.45 m/uL (4.30-5.90) 06/21/24 10:48 Hgb 15.6 gm/dL (13.0-17.5) 06/21/24 10:48 Hct 44.4 % (39.0-53.0) 06/21/24 10:48 MCV 99.7 fL (80.0-100.0) 06/21/24 10:48 MCH 35.1 pg (25.0-35.0) H 06/21/24 10:48 MCHC 35.2 g/dL (31.0-37.0) 06/21/24 10:48 RDW 12.8 % (11.5-15.5) 06/21/24 10:48 Plt Count 104 k/uL (150-450) L 06/21/24 10:48 MPV 7.9 06/21/24 10:48 Neutrophils % 55 % 06/21/24 10:48 Lymphocytes % 25 % 06/21/24 10:48 Monocytes % 15 % 06/21/24 10:48 Eosinophils % 2 % 06/21/24 10:48 Basophils % 1 % 06/21/24 10:48 Neutrophils # 3.7 k/uL (1.3-7.7) 06/21/24 10:48 Lymphocytes # 1.7 k/uL (1.0-4.8) 06/21/24 10:48 Monocytes # 1.0 k/uL (0-1.0) 06/21/24 10:48 Eosinophils # 0.2 k/uL (0-0.7) 06/21/24 10:48 Basophils # 0.0 k/uL (0-0.2) 06/21/24 10:48 Sodium 139 mmol/L (137-145) 06/21/24 10:48 Potassium 4.3 mmol/L (3.5-5.1) 06/21/24 10:48 Chloride 97 mmol/L (98-107) L 06/21/24 10:48 Carbon Dioxide 30 mmol/L (22-30) 06/21/24 10:48 Anion Gap 12 mmol/L 06/21/24 10:48 BUN 19 mg/dL (9-20) 06/21/24 10:48 Creatinine 0.92 mg/dL (0.66-1.25) 06/21/24 10:48 Est GFR (CKD-EPI)AfAm >90 (>60 ml/min/1.73 sqM) 06/21/24 10:48 Est GFR (CKD-EPI)NonAf >90 (>60 ml/min/1.73 sqM) 06/21/24 10:48 Glucose 273 mg/dL (74-99) H 06/21/24 10:48 POC Glucose (mg/dL) 98 mg/dL (70-110) 07/08/24 07:50 POC Glu Medical Cost Consultant ID Migel Mckinney 07/08/24 07:[address] Glu mg/dL 209 mg/dL 06/21/24 10:48 Hemoglobin A1c 8.9 % (<=6.0) H 06/21/24 10:48 Calcium 9.8 mg/dL (8.4-10.2) 06/21/24 10:48 Total Bilirubin 1.4 mg/dL (0.2-1.3) H 06/21/24 10:48 AST 30 U/L (17-59) 06/21/24 10:48 ALT 21 U/L (4-49) 06/21/24 10:48 Alkaline Phosphatase 116 U/L (38-126) 06/21/24 10:48 Total Protein 7.0 g/dL (6.3-8.2) 06/21/24 10:48 Albumin 4.3 g/dL (3.5-5.0) 06/21/24 10:48 Triglycerides 201.00 mg/dL (0.00-149.00) H 06/21/24 10:48 Cholesterol 177.00 mg/dL (0.00-200.00) 06/21/24 10:48 LDL Cholesterol, Calc 99.6 mg/dL (0.0-131.0) 06/21/24 10:48 VLDL Cholesterol, Calc 40.20 mg/dL (5.00-40.00) H 06/21/24 10:48 HDL Cholesterol 37.20 mg/dL (40.00-60.00) L 06/21/24 10:48 Cholesterol/HDL Ratio 4.76 Ratio 06/21/24 10:48 TSH 0.638 mIU/L (0.465-4.680) 06/21/24 10:48 Urine Color Light Yellow 06/25/24 17:25 Urine Appearance Clear (Clear) 06/25/24 17:25 Urine pH 6.0 (5.0-8.0) 06/25/24 17:25 Ur Specific [place] 1.026 (1.001-1.035) 06/25/24 17:25 Urine Protein Negative (Negative) 06/25/24 17:25 Urine Glucose (UA) 4+ (Negative) H 06/25/24 17:25 Urine Ketones Trace (Negative) H 06/25/24 17:25 Urine Blood Negative (Negative) 06/25/24 17:25 Urine Nitrite Negative (Negative) 06/25/24 17:25 Urine Bilirubin Negative (Negative) 06/25/24 17:25 Urine Urobilinogen 3.0 mg/dL (<2.0) 06/25/24 17:25 Ur Leukocyte Esterase Negative (Negative) 06/25/24 17:25 Urine Opiates Screen Not Detected (NotDetected) 06/25/24 17:25 Ur Oxycodone Screen Not Detected (NotDetected) 06/25/24 17:25 Urine Methadone Screen Not Detected (NotDetected) 06/25/24 17:25 Ur Barbiturates Screen Not Detected (NotDetected) 06/25/24 17:25 Valproic Acid 57.0 ug/mL 06/21/24 10:48 U Tricyclic Antidepress Detected (NotDetected) H 06/25/24 17:25 Ur Phencyclidine Scrn Not Detected (NotDetected) 06/25/24 17:25 Ur Amphetamines Screen Not Detected (NotDetected) 06/25/24 17:25 U Methamphetamines Scrn Not Detected (NotDetected) 06/25/24 17:25 U Benzodiazepines Scrn Not Detected (NotDetected) 06/25/24 17:25 Urine Cocaine Screen Not Detected (NotDetected) 06/25/24 17:25 U Marijuana (THC) Screen Not Detected (NotDetected) 06/25/24 17:25 SARS-CoV-2 (PCR) Not Detected (Not Detectd) 06/20/24 17:24 Vital Signs Temp 97.5 F L 07/08/24 06:18 Pulse 51 L 07/08/24 06:18 Resp 16 07/08/24 06:18 BP 109/58 07/08/24 06:18 Pulse Ox 99 07/08/24 06:18 FiO2 Intake & Output 07/07/24 07/08/24 07/08/24 18:59 06:59 18:59 Weight 74.2 kg Patient Condition at Discharge: Stable Plan - Discharge Summary Discharge Rx Participant: No New Discharge Prescriptions: New Loratadine [Claritin] 10 mg PO HS #30 tab Clotrimazole Cream [Lotrimin Cream] 1 applic TOPICAL BID each Insulin Glargine,Hum.rec.anlog [Lantus Solostar Pen] 15 units SQ BID 30 Days #4 each Fluticasone Nasal [place] [Flonase Nasal [place]] 2 spray EA NOSTRIL DAILY PRN #7 ml PRN Reason: Allergy Symptoms Magnesium Hydroxide [Milk of Magnesia] 2,400 mg PO DAILY PRN ml PRN Reason: Constipation Insulin Aspart [NovoLOG] 0 units SQ ACHS 30 Days #5 each amantadine HCL [Symmetrel] 100 mg PO TID 30 Days #90 cap Continue Acetaminophen [Tylenol Arthritis] 650 mg PO Q8H PRN PRN Reason: Pain Meclizine [Antivert] 12.5 mg PO BID PRN PRN Reason: DIZZINESS lamoTRIgine [LaMICtal] 100 mg PO DAILY 30 Days #30 tab Divalproex ER [Depakote ER] 1,500 mg PO HS@2100 30 Days #90 tab Metoprolol Tartrate [Lopressor] 50 mg PO BID Diltiazem Cd [Cardizem CD] 240 mg PO DAILY Diltiazem Cd [Cardizem CD] 120 mg PO DAILY Aspirin EC [Ecotrin Low Dose] 81 mg PO DAILY [place]-3 Acid Ethyl Esters [Lovaza] 1 gm PO BID guaiFENesin-DM 600/30MG [Mucinex Dm] 2 tab PO Q12HR PRN PRN Reason: Congestion QUEtiapine [SEROquel] 800 mg PO HS 30 Days #60 tab Pantoprazole [Protonix] 40 mg PO DAILY Albuterol Nebulized [Ventolin Nebulized] 2.5 mg INHALATION RT-QID PRN PRN Reason: Shortness Of Breath hydrOXYzine pamoate [Vistaril] 50 mg PO Q8H PRN PRN Reason: Anxiety Ibuprofen [Motrin] 600 mg PO Q8H PRN PRN Reason: Pain Folic Acid 1 mg PO DAILY #30 tab Discontinued Insulin NPH Human Isophane [NovoLIN N Flexpen] 40 units SQ TID-W/MEALS Discharge Medication List Acetaminophen [Tylenol Arthritis] 650 mg PO Q8H PRN 12/02/19 [History] Meclizine [Antivert] 12.5 mg PO BID PRN 04/01/23 [History] guaiFENesin-DM 600/30MG [Mucinex Dm] 2 tab PO Q12HR PRN 04/01/23 [History] Divalproex ER [Depakote ER] 1,500 mg PO HS@2100 30 Days #90 tab 04/12/23 [Rx] QUEtiapine [SEROquel] 800 mg PO HS 30 Days #60 tab 04/12/23 [Rx] lamoTRIgine [LaMICtal] 100 mg PO DAILY 30 Days #30 tab 04/12/23 [Rx] Albuterol Nebulized [Ventolin Nebulized] 2.5 mg INHALATION RT-QID PRN 11/06/23 [History] Aspirin EC [Ecotrin Low Dose] 81 mg PO DAILY 11/06/23 [History] Diltiazem Cd [Cardizem CD] 120 mg PO DAILY 11/06/23 [History] Diltiazem Cd [Cardizem CD] 240 mg PO DAILY 11/06/23 [History] Ibuprofen [Motrin] 600 mg PO Q8H PRN 11/06/23 [History] Metoprolol Tartrate [Lopressor] 50 mg PO BID 11/06/23 [History] Pantoprazole [Protonix] 40 mg PO DAILY 11/06/23 [History] hydrOXYzine pamoate [Vistaril] 50 mg PO Q8H PRN 11/06/23 [History] Folic Acid 1 mg PO DAILY #30 tab 11/08/23 [Rx] [place]-3 Acid Ethyl Esters [Lovaza] 1 gm PO BID 06/19/24 [History] Clotrimazole Cream [Lotrimin Cream] 1 applic TOPICAL BID each 07/03/24 [Rx] Fluticasone Nasal [place] [Flonase Nasal [place]] 2 spray EA NOSTRIL DAILY PRN #7 ml 07/03/24 [Rx] Insulin Aspart [NovoLOG] 0 units SQ ACHS 30 Days #5 each 07/03/24 [Rx] Insulin Glargine,Hum.rec.anlog [Lantus Solostar Pen] 15 units SQ BID 30 Days #4 each 07/03/24 [Rx] Loratadine [Claritin] 10 mg PO HS #30 tab 07/03/24 [Rx] Magnesium Hydroxide [Milk of Magnesia] 2,400 mg PO DAILY PRN ml 07/03/24 [Rx] amantadine HCL [Symmetrel] 100 mg PO TID 30 Days #90 cap 07/08/24 [Rx] Follow up Appointment(s)/Referral(s): [facility] [Outside] - 07/11/24 10:00 am (07/11 @ 9:30am with Rachel 07/11 @ 10:00am with Dr Frazier) Christian Friedman MD [Primary Care Provider] - 1-2 days Patient Instructions/Handouts: Schizoaffective Disorder (DC), Diabetic Hyperglycemia (ED) Activity/Diet/Wound Care/Special Instructions: Avoid the use of street drugs and alcohol. Take all medications as prescribed. When you are in need of refills on your medications, please contact your medical provider and/or outpatient psychiatrist/provider to have this done. Please go to your scheduled outpatient appointment for aftercare treatment. If symptoms return or become worse, call the crisis line at and/or go to the nearest emergency room for evaluation. National Suicide Hotline 988Continue regular home medication including evening dose of insulin Continue monitoring Accu-Cheks before meals and at bedtime Continue with sliding scale along with long-acting twice daily Continue consistent carb diet NovoLog sliding scale 0-150 equals 0 units 151-200 equals 2 units 201-250 equals 4 units 251-300 equals 6 units 301-350 equals 8 units 351-400 equals 10 units Please notify provider if blood sugar is 400 or above Discharge Disposition: OTHER INSTITUTION NOT DEFINED
[2024-07-08 13:00] LABS: Glucose,Whole Blood 262 mg/dL (70-110)
== END 2024-07-08 13:30 | disposition other institution (70) | DRG 885 ==
LOC: EC 20:00 → 3MHU 06-20 21:00
PROVIDERS: ADMIT Psychiatry & Neurology Psychiatry; ATTEND Psychiatry & Neurology Psychiatry
DX: F25.0 Schizoaffective disorder, bipolar type (principal); R45.851 Suicidal ideations; D69.6 Thrombocytopenia, unspecified; E11.65 Type 2 diabetes mellitus with hyperglycemia; J44.89 Other specified chronic obstructive pulmonary disease; I10 Essential (primary) hypertension; F41.9 Anxiety disorder, unspecified; R21 Rash and other nonspecific skin eruption; F17.200 Nicotine dependence, unspecified, uncomplicated; Z79.4 Long term (current) use of insulin; Z79.899 Other long term (current) drug therapy; Z79.82 Long term (current) use of aspirin; Z86.73 Personal history of transient ischemic attack (TIA), and cerebral infarction without residual deficits; Z88.8 Allergy status to other drugs, medicaments and biological substances
CPT/HCPCS: 36415; 80053; 80061; 80164; 80306; 81003; 82075; 83036; 84443; 85025; 87635; 99285

== ENCOUNTER 2024-09-26 06:50 | Inpatient (IN) | payer MEDICARE, OTHER ==
[2024-09-26] MEDS ORDERED: IPRATROPIUM-ALBUTEROL 3 ML NEB INHALATION PRN (10:00)
[2024-09-26] MEDS ORDERED: PNEUMONIA PROTOCOL UTILIZED 1 EACH MISC PO PRN (10:00)
--- NOTE | 2024-09-26 10:50 | XR ---
EXAMINATION TYPE: XR chest 1V portable DATE OF EXAM: 09/26/2024 COMPARISON: 11/06/2023 CLINICAL INDICATION: Male, 59 years old with history of Hypoxemia; , TECHNIQUE: XR chest 1V portable views of the chest. FINDINGS: Bilateral pleural effusion greater on the left lobulated density left lung apex. Heart is enlarged. L imited inspiration. Diffuse osteopenia and degenerative changes spine. Calcifications along the left humeral head associated with calcific tendinosis IMPRESSION: 1. Bilateral pleural effusion and basilar infiltrate greater on the left. Correlate for CHF. Underlyi ng pneumonia not excluded. 2. Large lobulated density in the left lobe. [facility], , 09/26/2024 10:48 AM
[2024-09-26] MEDS ORDERED: VANCOMYCIN IV PER PHARMACY 1 EACH MISC MISCELLANE PRN (11:06)
[2024-09-26] MEDS: PIPERACILLIN-TAZOBACTAM 3.375 GM in SODIUM CHLORIDE 0.9% 100 ML IVPB STA (11:08)
[2024-09-26] MEDS: LORazepam 2 MG/ML INJ IV PRN (11:08)
[2024-09-26 11:44] LABS: Basophils % (A) 0 %; Eosinophils # (A) 0.1 k/uL (0-0.7); Eosinophils % (A) 1 %; HCT 41.4 % (39.0-53.0); HGB 13.9 gm/dL (13.0-17.5); Lymphocytes # (A) 0.6 k/uL (1.0-4.8); Lymphocytes % (A) 4 %; MCH 32.9 pg (25.0-35.0); MCHC 33.5 g/dL (31.0-37.0); MCV 98.3 fL (80.0-100.0); Mean Platelet Volume 7.9; Monocytes % (A) 13 %; Neutrophils # (A) 11.8 k/uL (1.3-7.7); Neutrophils % (A) 79 %; Platelet Count 146 k/uL (150-450); RBC 4.21 m/uL (4.30-5.90); RDW 12.9 % (11.5-15.5); WBC 14.9 k/uL (3.8-10.6)
[2024-09-26] MEDS: IPRATROPIUM-ALBUTEROL 3 ML NEB INHALATION SCH (11:52)
[2024-09-26 11:56] LABS: Glucose,Whole Blood 221 mg/dL (70-110)
[2024-09-26 11:57] LABS: African American GFR (CKD) >90 (>60 ml/min/1.73 sqM); Anion Gap 9 mmol/L; Blood Urea Nitrogen 25 mg/dL (9-20); Calcium 8.8 mg/dL (8.4-10.2); Carbon Dioxide 29 mmol/L (22-30); Chloride 98 mmol/L (98-107); Glucose 157 mg/dL (74-99); Non-African American GFR(CKD) >90 (>60 ml/min/1.73 sqM); Potassium 3.6 mmol/L (3.5-5.1); Sodium 136 mmol/L (137-145)
[2024-09-26] MEDS ORDERED: ALBUTEROL NEBULIZED 2.5 MG/3 ML INHALATION SCH (12:00)
[2024-09-26] MEDS: VANCOMYCIN 1,500 MG in SODIUM CHLORIDE 0.9% 500 ML 500 ML IVPB SCH (13:13)
--- NOTE | 2024-09-26 13:37 | P.CNPUL ---
History of Present Illness Consult date: 09/26/24 Requesting physician: Ankit E Sheet Reason for consult: dyspnea, hypoxemia, abnormal CXR/CT Chief complaint: Shortness of breath History of present illness: This is a 59-year-old male patient with a known history of schizophrenia and resides in a adult foster care setting who had been brought into [facility] with increasing shortness of breath on September 22, 2024. He was requiring Airvo high flow oxygen and not showing much improvement and was transferred here direct admit to the selective care unit today. Chest x-ray here reveals bilateral pleural effusion and basilar infiltrates left greater than right. Correlate for underlying CHF. Possible pneumonia. Large lobulated density in the left lobe. He is currently sitting up in a chair. Awake and alert. Somewhat uncooperative. A safety director is at the bedside. Continuously taking off his Airvo high flow oxygen device. This is currently set at 50 L and 80% FiO2. Procalcitonin at [place] was 2.40. He has been ini tiated on DuoNeb and elations, vancomycin and Zosyn. Ativan as needed. White count 14.9. Hemoglobin 13.9. Platelets 146. Sodium 136. Potassium 3.6. Bicarb 29. BUN 25. Creatinine 0.71. Glucose 157. He currently denies any worsening shortness of breath, cough or congestion. He is not clear as to why he was admitted. No family at the bedside. Review of Systems ROS unobtainable: due to mental status Past Medical History Past Medical History: Asthma, COPD, CVA/TIA, Diabetes Mellitus, Hypertension, Thyroid Disorder Additional Past Medical History / Comment(s): Tremors History of Any Multi-Drug Resistant Organisms: None Reported Past Surgical History: Cholecystectomy Additional Past Surgical History / Comment(s): LEFT EYE Past Anesthesia/Blood Transfusion Reactions: No Reported Reaction Past Psychological History: Anxiety, Bipolar, Depression, Schizoaffective Disorder Smoking Status: Unknown if ever smoked Past Alcohol Use History: None Reported Past Drug Use History: None Reported Additional Drug Use History / Comment(s): pt is a very poor historian - Past Family History Father Family Medical History: Unable to Obtain Medications and Allergies Home Medications Medication Instructions Recorded Confirmed Type Acetaminophen [Tylenol Arthritis] 650 mg PO Q8H PRN 12/02/19 09/26/24 History Aspirin EC [Ecotrin Low Dose] 81 mg PO DAILY 11/06/23 09/26/24 History Diltiazem Cd [Cardizem CD] 120 mg PO DAILY 11/06/23 09/26/24 History Diltiazem Cd [Cardizem CD] 240 mg PO DAILY 11/06/23 09/26/24 History Metoprolol Tartrate [Lopressor] 25 mg PO BID 11/06/23 09/26/24 History Pantoprazole [Protonix] 40 mg PO DAILY 11/06/23 09/26/24 History Folic Acid 1 mg PO DAILY #30 tab 11/08/23 09/26/24 Rx [place]-3 Acid Ethyl Esters [Lovaza] 1 gm PO DAILY 06/19/24 09/26/24 History Divalproex ER [Depakote ER] 500 mg PO TID 09/26/24 09/26/24 History Insulin Regular, Human [NovoLIN R 16 units SQ W/SUPPER 09/26/24 09/26/24 History Flexpen] QUEtiapine FUMARATE [SEROquel] 600 mg PO HS 09/26/24 09/26/24 History amantadine HCL [Symmetrel] 100 mg PO DAILY 09/26/24 09/26/24 History traZODone HCL [Desyrel] 50 mg PO HS PRN 09/26/24 09/26/24 History Allergies Allergy/AdvReac Type Severity Reaction Status Date / Time amlodipine Allergy Unknown Verified 09/26/24 10:42 aripiprazole [From Abilify] Allergy Unknown Verified 09/26/24 10:42 atorvastatin [From Lipitor] Allergy Unknown Verified 09/26/24 10:42 benztropine [From Cogentin] Allergy Unknown Verified 09/26/24 10:42 chlorpromazine Allergy Unknown Verified 09/26/24 10:42 [From Thorazine] fluphenazine [From Prolixin] Allergy Unknown Verified 09/26/24 10:42 gabapentin Allergy Unknown Verified 09/26/24 10:42 haloperidol [From Haldol] Allergy Unknown Verified 09/26/24 10:42 insulin glargine Allergy Unknown Verified 09/26/24 10:42 [From Lantus] metformin Allergy Unknown Verified 09/26/24 10:42 olanzapine [From Zyprexa] Allergy Unknown Verified 09/26/24 10:42 paliperidone [From Invega] Allergy Unknown Verified 09/26/24 10:42 thiothixene Allergy Unknown Verified 09/26/24 10:42 ziprasidone [From Geodon] Allergy Unknown Verified 09/26/24 10:42 ABILIFY INJECTION Allergy Unknown Uncoded 02/01/24 17:43 INVEGA INJECTION Allergy Unknown Uncoded 02/01/24 17:43 Physical Exam Vitals: Vital Signs Temp Pulse Resp BP Pulse Ox FiO2 09/26/24 12:00 93 20 139/72 94 L 50 09/26/24 11:47 91 L 60 09/26/24 11:42 97.6 F 115 H 20 151/70 92 L 100 09/26/24 09:33 92 L 80 Intake and Output 09/25/24 09/26/24 09/26/24 22:59 06:59 14:59 Intake Total 472 Balance 472 Intake: Oral 472 Other: # Voids 1 Weight 74.843 kg GENERAL EXAM: Alert, 59-year-old male, poor historian, on Airvo high flow oxygen at 50 L and 80% FiO2, sitting up in a chair, in no apparent distress. HEAD: Normocephalic. EYES: Normal reaction of pupils, equal size. NOSE: Clear with pink turbinates. THROAT: No erythema or exudates. NECK: No masses, no JVD. CHEST: No chest wall deformity. LUNGS: Equal air entry with bilateral scattered rhonchi, crackles in the bases, left greater than right. CVS: S1 and S2 normal with no audible murmur, regular rhythm. ABDOMEN: No hepatosplenomegaly, normal bowel sounds, no guarding or rigidity. SPINE: No scoliosis or deformity SKIN: No rashes CENTRAL NERVOUS SYSTEM: No focal deficits, tone is normal in all 4 extremities. EXTREMITIES: There is no peripheral edema. No clubbing, no cyanosis. Peripheral pulses are intact. Results - Laboratory Findings CBC and BMP: 09/26/24 11:14 09/26/24 11:14 Abnormal lab findings: Abnormal Labs 09/26/24 09/26/24 09/26/24 11:14 11:14 11:55 WBC 14.9 H RBC 4.21 L Plt Count 146 L Neutrophils # 11.8 H Lymphocytes # 0.6 L Monocytes # 2.0 H Sodium 136 L BUN 25 H Glucose 157 H POC Glucose (mg/dL) 221 H - Diagnostic Findings Chest x-ray: image reviewed Assessment and Plan Assessment: Acute hypoxemic respiratory failure secondary to suspected bilateral pneumonia, bilateral pleural effusion, possible underlying diastolic congestive heart failure. Procalcitonin 2.40 at [place]. Echocardiogram revealed an ejection fraction of 60 to 65% Leukocytosis secondary to above Atrial fibrillation with a rapid ventricular response Schizoaffective disorder History of bipolar disorder with anxiety/depression Diabetes mellitus, type II History of mild intermittent chronic bronchial asthma History of CVA Hypertension Gastroesophageal reflux disease AF resident Plan: The patient was seen and evaluated Chest x-ray, labs and medications reviewed Continue vancomycin and Zosyn for now Continue bronchodilators Obtain an ultrasound of the chest May require a thoracentesis Not sure of his ability to cooperate Titrate down the FiO2 as tolerated We will continue to follow and make further recommendations based on his clinical status I have personally seen and examined the patient, performed the documentation and the assessment and plan as written. Number of minutes spent on the visit: 20 Dictation was produced using [employer] dictation software. Please excuse any grammatical, word or spelling errors.
[2024-09-26] MEDS ORDERED: DEXTROSE 50% SYRINGE 50 ML IVP PRN ×2 (14:27)
--- NOTE | 2024-09-26 14:36 | P.HPIM ---
History of Present Illness H&P Date: 09/26/24 History of present illness; patient is a 59-year-old gentleman with past medical history significant for schizophrenia who is a resident of a adult foster care was transferred to [facility] from [facility] for worsening respiratory status. Patient initially presented to [facility] for shortness of breath and chest pain for 4 to 5 days. According to medical records, patient was complaining of shortness of breath on exertion and chest pain that was pleuritic in nature worsened by taking deep breaths. Patient was also complaining of lethargy and weakness. There is no complaint of cough. There was no complaint of fever or chills. Patient was worked up in [facility], initial CT chest done showed bilateral lower lobe consolidation greater on the left suspicious for pneumonia. Patient was admitted there and was started on IV antibiotics. Patient also had 2D echo done that showed normal LV systolic function with LVEF of 66 65%, there was some diastolic dysfunction present. No valvular pathology seen. While at [facility], patient respiratory status worsened, patient was requiring heated high flow. Because of respiratory status, transfer was requested and patient was transferred to [facility] Patient admitted to internal medicine service REVIEW OF SYSTEMS: Review of system cannot be obtained as patient is very agitated PHYSICAL EXAMINATION: GENERAL: The patient is agitated, chronically ill looking HEENT: Pupils are round and equally reacting to light. EOMI. No scleral icterus. No conjunctival pallor. Normocephalic, atraumatic. No pharyngeal erythema. No thyromegaly. CARDIOVASCULAR: S1 and S2 present. No murmurs, rubs, or gallops. PULMONARY: Tachypneic, coarse breath sound bilaterally, diminished at left lung base, crackles audible ABDOMEN: Soft, nontender, nondistended, normoactive bowel sounds. No palpable organomegaly. MUSCULOSKELETAL: No joint swelling or deformity. EXTREMITIES: No cyanosis, clubbing, or pedal edema. NEUROLOGICAL: Gross neurological examination did not reveal any focal deficits. SKIN: No rashes. Assessment and plan Acute hypoxemic respiratory failure Bilateral pleural effusions Bacterial pneumonia Paroxysmal A-fib with RVR Leukocytosis secondary to above Schizoaffective disorder History of bipolar disorder with anxiety/depression Diabetes mellitus, type II History of CVA Hypertension Gastroesophageal reflux disease Monitor vital signs Monitor CBC Monitor CMP Ordered blood cultures Ordered sputum culture Ordered breathing treatments Ordered IV Zosyn Ordered ultrasound of chest Resume home meds Consult pulmonary Consult ID Consult cardiology Labs and medication were reviewed.. Continue same treatment. Continue with symptomatic treatment. Resume home medication. Monitor labs and vitals. DVT and GI prophylaxis. Further recommendations as per clinical course of the pa tiesushma Dictation was produced using [employer] dictation software. please excuse any grammatical, word or spelling errors. Past Medical History Past Medical History: Asthma, COPD, CVA/TIA, Diabetes Mellitus, Hypertension, Thyroid Disorder Additional Past Medical History / Comment(s): Tremors History of Any Multi-Drug Resistant Organisms: None Reported Past Surgical History: Cholecystectomy Additional Past Surgical History / Comment(s): LEFT EYE Past Anesthesia/Blood Transfusion Reactions: No Reported Reaction Past Psychological History: Anxiety, Bipolar, Depression, Schizoaffective Disorder Smoking Status: Unknown if ever smoked Past Alcohol Use History: None Reported Past Drug Use History: None Reported Additional Drug Use History / Comment(s): pt is a very poor historian - Past Family History Father Family Medical History: Unable to Obtain Medications and Allergies Home Medications Medication Instructions Recorded Confirmed Type Acetaminophen [Tylenol Arthritis] 650 mg PO Q8H PRN 12/02/19 09/26/24 History Aspirin EC [Ecotrin Low Dose] 81 mg PO DAILY 11/06/23 09/26/24 History Diltiazem Cd [Cardizem CD] 120 mg PO DAILY 11/06/23 09/26/24 History Diltiazem Cd [Cardizem CD] 240 mg PO DAILY 11/06/23 09/26/24 History Metoprolol Tartrate [Lopressor] 25 mg PO BID 11/06/23 09/26/24 History Pantoprazole [Protonix] 40 mg PO DAILY 11/06/23 09/26/24 History Folic Acid 1 mg PO DAILY #30 tab 11/08/23 09/26/24 Rx [place]-3 Acid Ethyl Esters [Lovaza] 1 gm PO DAILY 06/19/24 09/26/24 History Divalproex ER [Depakote ER] 500 mg PO TID 09/26/24 09/26/24 History Insulin Regular, Human [NovoLIN R 16 units SQ W/SUPPER 09/26/24 09/26/24 History Flexpen] QUEtiapine FUMARATE [SEROquel] 600 mg PO HS 09/26/24 09/26/24 History amantadine HCL [Symmetrel] 100 mg PO DAILY 09/26/24 09/26/24 History traZODone HCL [Desyrel] 50 mg PO HS PRN 09/26/24 09/26/24 History Allergies Allergy/AdvReac Type Severity Reaction Status Date / Time amlodipine Allergy Unknown Verified 09/26/24 10:42 aripiprazole [From Abilify] Allergy Unknown Verified 09/26/24 10:42 atorvastatin [From Lipitor] Allergy Unknown Verified 09/26/24 10:42 benztropine [From Cogentin] Allergy Unknown Verified 09/26/24 10:42 chlorpromazine Allergy Unknown Verified 09/26/24 10:42 [From Thorazine] fluphenazine [From Prolixin] Allergy Unknown Verified 09/26/24 10:42 gabapentin Allergy Unknown Verified 09/26/24 10:42 haloperidol [From Haldol] Allergy Unknown Verified 09/26/24 10:42 insulin glargine Allergy Unknown Verified 09/26/24 10:42 [From Lantus] metformin Allergy Unknown Verified 09/26/24 10:42 olanzapine [From Zyprexa] Allergy Unknown Verified 09/26/24 10:42 paliperidone [From Invega] Allergy Unknown Verified 09/26/24 10:42 thiothixene Allergy Unknown Verified 09/26/24 10:42 ziprasidone [From Geodon] Allergy Unknown Verified 09/26/24 10:42 ABILIFY INJECTION Allergy Unknown Uncoded 02/01/24 17:43 INVEGA INJECTION Allergy Unknown Uncoded 02/01/24 17:43 Physical Exam Vitals: Vital Signs Temp Pulse Resp BP Pulse Ox FiO2 09/26/24 12:00 93 20 139/72 94 L 50 09/26/24 11:47 91 L 60 09/26/24 11:42 97.6 F 115 H 20 151/70 92 L 100 09/26/24 09:33 92 L 80 Intake and Output 09/25/24 09/26/24 09/26/24 22:59 06:59 14:59 Intake Total 472 Balance 472 Intake: Oral 472 Other: # Voids 1 Weight 74.843 kg Results CBC & Chem 7: 09/26/24 11:14 09/26/24 11:14 Labs: Abnormal Lab Results - Last 24 Hours (Table) 09/26/24 09/26/24 09/26/24 Range/Units 11:14 11:14 11:55 WBC 14.9 H (3.8-10.6) k/uL RBC 4.21 L (4.30-5.90) m/uL Plt Count 146 L (150-450) k/uL Neutrophils # 11.8 H (1.3-7.7) k/uL Lymphocytes # 0.6 L (1.0-4.8) k/uL Monocytes # 2.0 H (0-1.0) k/uL Sodium 136 L (137-145) mmol/L BUN 25 H (9-20) mg/dL Glucose 157 H (74-99) mg/dL POC Glucose (mg/dL) 221 H (70-110) mg/dL
--- NOTE | 2024-09-26 15:54 | P.CRDCN ---
History of Present Illness Consult date: 09/26/24 History of present illness: HISTORY OF PRESENTING ILLNESS 59-year-old with past medical history of schizophrenia, close had traumatic brain injury, bipolar disorder, resident of an adult foster care was presented from [facility] to [facility] because of worsening shortness of breath. He initially presented to [facility] because of increased shortn ess of breath, increased cough and chest pain that would get worse with taking deep breaths. Patient has been increasingly lethargic and weak. Initial workup at [facility] with chest x-ray showed bilateral lower lobe consolidation greater on the left side suspicious of pneumonia. He was started on IV antibiotics. He had echocardiogram done there which showed an EF of 60 to 65% with mild diastolic dysfunction. There was no significant valvular dysfunction. Cardiology was consulted for concerns of atrial fibrillation on admission ECG at [facility]. On admission to the floor at [facility] he was significantly agitated. An EKG performed at time showed narrow complex tachycardia with heart rate in 160s to 170s. As soon as patient was stabilized and patient became calm, heart rate came down to 80s and was in sinus rhythm. His ECG at [facility] and ECG after stabilization was normal sinus rhythm. Social Hx: Resident of a adult foster home Family Hx: non contributary to current clinical scenario REVIEW OF SYSTEMS 14 point review of system is negative except what is mentioned above in HPI. PHYSICAL EXAMINATION Neck: Brisk carotid upstroke, no jugular venous distention. Lungs: Crackles and rhonchi audible in bilateral lung dyer Heart: Regular rate and rhythm, S1-S2, no S3, no murmur or rub. Abdomen: Soft nontender, positive bowel sounds. Extremities: No edema, intact distal pulses. Neuro: Alert. Detailed neuro exam was not performed. ASSESSMENT Sinus tachycardia most likely because of respiratory distress and agitation Complicated pneumonia and Sepsis Bipolar disorder Schizophrenia Close head CVA Type 2 diabetes Cardiac testing Echo from November 21, 2023 shows EF 55%, mild mitral regurgitation, limited quality study PLAN No need to repeat echocardiogram at this time Continue to monitor telemetry I would not treat this patient has atrial fibrillation at this time. If patient has moved for further sustain episodes of atrial fibrillation, please notify cardiology. Continue metoprolol 25 mg twice daily, aspirin 81 mg daily, Kit Moss MD, FACC, RPVI Thank you for allowing [facility] to participate in this patient's care. Feel free to reach out in case of any followup questions. Past Medical History Past Medical History: Asthma, COPD, CVA/TIA, Diabetes Mellitus, Hypertension, Thyroid Disorder Additional Past Medical History / Comment(s): Tremors History of Any Multi-Drug Resistant Organisms: None Reported Past Surgical History: Cholecystectomy Additional Past Surgical History / Comment(s): LEFT EYE Past Anesthesia/Blood Transfusion Reactions: No Reported Reaction Past Psychological History: Anxiety, Bipolar, Depression, Schizoaffective Disorder Smoking Status: Unknown if ever smoked Past Alcohol Use History: None Reported Past Drug Use History: None Reported Additional Drug Use History / Comment(s): pt is a very poor historian - Past Family History Father Family Medical History: Unable to Obtain Medications and Allergies Home Medications Medication Instructions Recorded Confirmed Type Acetaminophen [Tylenol Arthritis] 650 mg PO Q8H PRN 12/02/19 09/26/24 History Aspirin EC [Ecotrin Low Dose] 81 mg PO DAILY 11/06/23 09/26/24 History Diltiazem Cd [Cardizem CD] 120 mg PO DAILY 11/06/23 09/26/24 History Diltiazem Cd [Cardizem CD] 240 mg PO DAILY 11/06/23 09/26/24 History Metoprolol Tartrate [Lopressor] 25 mg PO BID 11/06/23 09/26/24 History Pantoprazole [Protonix] 40 mg PO DAILY 11/06/23 09/26/24 History Folic Acid 1 mg PO DAILY #30 tab 11/08/23 09/26/24 Rx [place]-3 Acid Ethyl Esters [Lovaza] 1 gm PO DAILY 06/19/24 09/26/24 History Divalproex ER [Depakote ER] 500 mg PO TID 09/26/24 09/26/24 History Insulin Regular, Human [NovoLIN R 16 units SQ W/SUPPER 09/26/24 09/26/24 History Flexpen] QUEtiapine FUMARATE [SEROquel] 600 mg PO HS 09/26/24 09/26/24 History amantadine HCL [Symmetrel] 100 mg PO DAILY 09/26/24 09/26/24 History traZODone HCL [Desyrel] 50 mg PO HS PRN 09/26/24 09/26/24 History Allergies Allergy/AdvReac Type Severity Reaction Status Date / Time amlodipine Allergy Unknown Verified 09/26/24 10:42 aripiprazole [From Abilify] Allergy Unknown Verified 09/26/24 10:42 atorvastatin [From Lipitor] Allergy Unknown Verified 09/26/24 10:42 benztropine [From Cogentin] Allergy Unknown Verified 09/26/24 10:42 chlorpromazine Allergy Unknown Verified 09/26/24 10:42 [From Thorazine] fluphenazine [From Prolixin] Allergy Unknown Verified 09/26/24 10:42 gabapentin Allergy Unknown Verified 09/26/24 10:42 haloperidol [From Haldol] Allergy Unknown Verified 09/26/24 10:42 insulin glargine Allergy Unknown Verified 09/26/24 10:42 [From Lantus] metformin Allergy Unknown Verified 09/26/24 10:42 olanzapine [From Zyprexa] Allergy Unknown Verified 09/26/24 10:42 paliperidone [From Invega] Allergy Unknown Verified 09/26/24 10:42 thiothixene Allergy Unknown Verified 09/26/24 10:42 ziprasidone [From Geodon] Allergy Unknown Verified 09/26/24 10:42 ABILIFY INJECTION Allergy Unknown Uncoded 02/01/24 17:43 INVEGA INJECTION Allergy Unknown Uncoded 02/01/24 17:43 Physical Exam Vitals: Vital Signs Temp Pulse Pulse Resp BP Pulse Ox FiO2 09/26/24 15:52 94 09/26/24 15:48 96 50 09/26/24 15:44 90 09/26/24 12:00 93 20 139/72 94 L 50 09/26/24 11:47 91 L 60 09/26/24 11:42 97.6 F 115 H 20 151/70 92 L 100 09/26/24 09:33 92 L 80 Intake and Output 09/26/24 09/26/24 09/26/24 06:59 14:59 22:59 Intake Total 472 Balance 472 Intake: Oral 472 Other: # Voids 1 Weight 74.843 kg Results 09/26/24 11:14 09/26/24 11:14 CBC 09/26/24 Range/Units 11:14 WBC 14.9 H (3.8-10.6) k/uL RBC 4.21 L (4.30-5.90) m/uL Hgb 13.9 (13.0-17.5) gm/dL Hct 41.4 (39.0-53.0) % Plt Count 146 L (150-450) k/uL Comprehensive Metabolic Panel 09/26/24 Range/Units 11:14 Sodium 136 L (137-145) mmol/L Potassium 3.6 (3.5-5.1) mmol/L Chloride 98 (98-107) mmol/L Carbon Dioxide 29 (22-30) mmol/L BUN 25 H (9-20) mg/dL Creatinine 0.71 (0.66-1.25) mg/dL Glucose 157 H (74-99) mg/dL Calcium 8.8 (8.4-10.2) mg/dL Current Medications Generic Name Dose Route Start Last Admin Trade Name Freq PRN Reason Stop Dose Admin Acetaminophen 650 mg 09/26/24 10:00 Acetaminophen Tab 325 Mg Tab PO Q4HR PRN Fever and/ or Pain Albuterol/Ipratropium 3 ml 09/26/24 10:00 Ipratropium-Albuterol 3 Ml Neb INHALATION RT-Q2H PRN Shortness Of Breath Or Wheezing Albuterol/Ipratropium 3 ml 09/26/24 12:00 09/26/24 15:43 Ipratropium-Albuterol 3 Ml Neb INHALATION 3 ml RT-QID BEAR Administration Amantadine HCl 100 mg 09/27/24 09:00 Amantadine Hcl 100 Mg Cap PO DAILY [facility] Aspirin 81 mg 09/27/24 09:00 Aspirin 81 Mg PO DAILY [facility] Dextrose/Water 25 ml 09/26/24 14:27 Dextrose 50% Syringe 50 Ml IVP PER PROTOCOL PRN Hypoglycemia Protocol Dextrose/Water 50 ml 09/26/24 14:27 Dextrose 50% Syringe 50 Ml IVP PER PROTOCOL PRN Hypoglycemia Protocol Diltiazem HCl 360 mg 09/27/24 09:00 Diltiazem Cd 180 Mg Cap.Er.24h PO DAILY [facility] Divalproex Sodium 500 mg 09/26/24 16:00 Divalproex Er 500 Mg Tab.Er.24h PO TID [facility] Folic Acid 1 mg 09/27/24 09:00 Folic Acid 1 Mg Tab PO DAILY [facility] Piperacillin Sod/Tazobactam 100 mls @ 25 mls/hr 09/26/24 17:00 Sod 3.375 gm/ Sodium Chloride IVPB Q8H [facility] Protocol Insulin Aspart 0 unit 09/26/24 17:30 Insulin Aspart (Novolog) 100 Unit/Ml Vial SQ ACHS [facility] Protocol Lorazepam 0.5 mg 09/26/24 10:50 09/26/24 11:08 Lorazepam 2 Mg/Ml Inj IV 0.5 mg Q6HR PRN Administration Anxiety Metoprolol Tartrate 25 mg 09/26/24 21:00 Metoprolol Tartrate 25 Mg Tab PO BID [facility] Miscellaneous Information 1 each 09/26/24 10:00 Pneumonia Protocol Utilized 1 Each Misc PO ONCE PRN Per Protocol Pantoprazole Sodium 40 mg 09/27/24 09:00 Pantoprazole 40 Mg Tablet PO DAILY [facility] Trazodone HCl 50 mg 09/26/24 14:32 Trazodone Hcl 50 Mg Tab PO HS PRN SLEEP Intake and Output 09/26/24 09/26/24 09/26/24 06:59 14:59 22:59 Intake Total 472 Balance 472 Intake: Oral 472 Other: # Voids 1 Weight 74.843 kg Patient Weight 09/27/24 06:59 Weight 74.843 kg 09/26/24 11:14 09/26/24 11:14
[2024-09-26 16:58] LABS: Glucose,Whole Blood 123 mg/dL (70-110)
[2024-09-26] MEDS: INSULIN ASPART (NovoLOG) 100 UNIT/ML VIAL SQ SCH (17:14)
[2024-09-26] MEDS: DIVALPROEX ER 500 MG TAB.ER.24H PO SCH (17:15)
[2024-09-26] MEDS: PIPERACILLIN-TAZOBACTAM 3.375 GM in SODIUM CHLORIDE 0.9% 100 ML IVPB SCH (17:17)
[2024-09-26 20:45] LABS: Glucose,Whole Blood 89 mg/dL (70-110)
[2024-09-26] MEDS: METOPROLOL TARTRATE 25 MG TAB PO SCH (21:01)
--- NOTE | 2024-09-26 23:25 | P.CONS ---
History of Present Illness - Reason for Consult Consult date: 09/26/24 Pneumonia Requesting physician: Edwar Ballesteros - Chief Complaint Shortness of breath x few days - History of Present Illness Patient is a 59-year-old male with a past medical history significant for Schizophrenia resident of adult foster care was sent to the [facility] concerning for increasing shortness of breath on September 22, 2024 patient apparently did have a chest x-ray with evidence of bilateral effusion and basilar infiltrates left greater than the right lower concern for possible CHF/pneumonia patient also have elevated procalcitonin at [facility] patient did not have significant improvement subsequently patient has been transferred to [facility] for further evaluation on arrival to the hospital patient was afebrile patient was mildly tachycardic but not hypotensive he was hypoxic requiring high flow nasal cannula oxygen with Airvo patient did have white count of 14.9 creatinine 0.71 patient was started on vancomycin and Zosyn chest x-ray with bilateral effusion and basilar infiltrate greater on the left infectious he was consulted for further management of antibiotic therapy most information has been obtained for review the chart talking with nursing staff and the patient did not provide any history Review of Systems Positive points has been mentioned in HPI complete review could not be obtained because of his underlying mental status Past Medical History Past Medical History: Asthma, COPD, CVA/TIA, Diabetes Mellitus, Hypertension, Thyroid Disorder Additional Past Medical History / Comment(s): Tremors History of Any Multi-Drug Resistant Organisms: None Reported Past Surgical History: Cholecystectomy Additional Past Surgical History / Comment(s): LEFT EYE Past Anesthesia/Blood Transfusion Reactions: No Reported Reaction Past Psychological History: Anxiety, Bipolar, Depression, Schizoaffective Disorder Smoking Status: Current every day smoker Past Alcohol Use History: None Reported Past Drug Use History: None Reported - Past Family History Father Family Medical History: Unable to Obtain Medications and Allergies Home Medications Medication Instructions Recorded Confirmed Type Acetaminophen [Tylenol Arthritis] 650 mg PO Q8H PRN 12/02/19 09/26/24 History Aspirin EC [Ecotrin Low Dose] 81 mg PO DAILY 11/06/23 09/26/24 History Diltiazem Cd [Cardizem CD] 120 mg PO DAILY 11/06/23 09/26/24 History Diltiazem Cd [Cardizem CD] 240 mg PO DAILY 11/06/23 09/26/24 History Metoprolol Tartrate [Lopressor] 25 mg PO BID 11/06/23 09/26/24 History Pantoprazole [Protonix] 40 mg PO DAILY 11/06/23 09/26/24 History Folic Acid 1 mg PO DAILY #30 tab 11/08/23 09/26/24 Rx [place]-3 Acid Ethyl Esters [Lovaza] 1 gm PO DAILY 06/19/24 09/26/24 History Divalproex ER [Depakote ER] 500 mg PO TID 09/26/24 09/26/24 History Insulin Regular, Human [NovoLIN R 16 units SQ W/SUPPER 09/26/24 09/26/24 History Flexpen] QUEtiapine FUMARATE [SEROquel] 600 mg PO HS 09/26/24 09/26/24 History amantadine HCL [Symmetrel] 100 mg PO DAILY 09/26/24 09/26/24 History traZODone HCL [Desyrel] 50 mg PO HS PRN 09/26/24 09/26/24 History Allergies Allergy/AdvReac Type Severity Reaction Status Date / Time amlodipine Allergy Unknown Verified 09/26/24 10:42 aripiprazole [From Abilify] Allergy Unknown Verified 09/26/24 10:42 atorvastatin [From Lipitor] Allergy Unknown Verified 09/26/24 10:42 benztropine [From Cogentin] Allergy Unknown Verified 09/26/24 10:42 chlorpromazine Allergy Unknown Verified 09/26/24 10:42 [From Thorazine] fluphenazine [From Prolixin] Allergy Unknown Verified 09/26/24 10:42 gabapentin Allergy Unknown Verified 09/26/24 10:42 haloperidol [From Haldol] Allergy Unknown Verified 09/26/24 10:42 insulin glargine Allergy Unknown Verified 09/26/24 10:42 [From Lantus] metformin Allergy Unknown Verified 09/26/24 10:42 olanzapine [From Zyprexa] Allergy Unknown Verified 09/26/24 10:42 paliperidone [From Invega] Allergy Unknown Verified 09/26/24 10:42 thiothixene Allergy Unknown Verified 09/26/24 10:42 ziprasidone [From Geodon] Allergy Unknown Verified 09/26/24 10:42 ABILIFY INJECTION Allergy Unknown Uncoded 02/01/24 17:43 INVEGA INJECTION Allergy Unknown Uncoded 02/01/24 17:43 Physical Exam Vitals: Vital Signs Pulse Ox FiO2 09/26/24 09:33 92 L 80 GENERAL DESCRIPTION: Middle-aged male lying in bed, no distress. No tachypnea or accessory muscle of respiration use. HEENT: Shows Pallor , no scleral icterus. Oral mucous membrane is dry. NECK: Trachea central, no thyromegaly. LUNGS: Unlabored breathing. Decreased breath sounds at bases HEART: S1, S2, regular rate and rhythm. No loud murmur ABDOMEN: Soft, no tenderness , guarding or rigidity, no organomegaly EXTREMITIES: No edema of feet. SKIN: No rash, no masses palpable. NEUROLOGICAL: The patient is lethargic orientation could not be determined Results CBC & Chem 7: 09/27/24 12:10 09/27/24 12:10 Assessment and Plan (1) Leukocytosis Current Visit: Yes Status: Acute Code(s): D72.829 - ELEVATED WHITE BLOOD CELL COUNT, UNSPECIFIED SNOMED Code(s): 469611562 (2) Pneumonia Current Visit: Yes Status: Acute Code(s): J18.9 - PNEUMONIA, UNSPECIFIED ORGANISM SNOMED Code(s): 087394719 Plan: 1patient presenting to the hospital for evaluation of increasing shortness of breath in this patient who did have evidence of bilateral effusion and basilar atelectasis more on the left side patient did have elevated white count apparently he did have elevated procalcitonin at the [facility], concerning for possible pneumonia question of community-acquired versus gram- negative less likely MRSA 2-try to obtain sputum for Gram stain culture and MRSA nasal screen 3-continue with Zosyn however discontinue vancomycin to decrease risk of nephrotoxicity we will follow on clinical condition and cultures to further adjust medication if needed Thank you for this consultation we will follow the patient along with you Dictation was produced using [employer] dictation software. please excuse any grammatical, word or spelling errors. Time with Patient: Greater than 30
[2024-09-27 06:20] LABS: Glucose,Whole Blood 90 mg/dL (70-110)
[2024-09-27] MEDS: ASPIRIN 81 MG PO SCH (08:47)
[2024-09-27] MEDS: DILTIAZEM CD 180 MG CAP.ER.24H PO SCH (08:47)
[2024-09-27] MEDS: PANTOPRAZOLE 40 MG TABLET PO SCH (08:47)
[2024-09-27] MEDS: FOLIC ACID 1 MG TAB PO SCH (08:47)
[2024-09-27] MEDS ORDERED: NON FORMULARY DRUG (Omega-3 Acid Ethyl Esters [Lovaza] 1 GM Capsule) PO SCH (09:00)
[2024-09-27] MEDS ORDERED: DILTIAZEM CD 120 MG CAP.ER.24H PO SCH (09:00)
[2024-09-27 12:01] LABS: Glucose,Whole Blood 110 mg/dL (70-110)
[2024-09-27 13:09] LABS: ALT 13 U/L (4-49); AST 24 U/L (17-59); African American GFR (CKD) >90 (>60 ml/min/1.73 sqM); Albumin 2.5 g/dL (3.5-5.0); Alkaline Phosphatase 100 U/L (38-126); Anion Gap 5 mmol/L; Blood Urea Nitrogen 20 mg/dL (9-20); Calcium 8.6 mg/dL (8.4-10.2); Carbon Dioxide 27 mmol/L (22-30); Chloride 101 mmol/L (98-107); Glucose 115 mg/dL (74-99); Non-African American GFR(CKD) >90 (>60 ml/min/1.73 sqM); Potassium 3.6 mmol/L (3.5-5.1); Sodium 133 mmol/L (137-145); Total Bilirubin 0.4 mg/dL (0.2-1.3); Total Protein 5.4 g/dL (6.3-8.2)
[2024-09-27 13:11] LABS: Basophils # (A) 0.1 k/uL (0-0.2); Basophils % (A) 0 %; Eosinophils # (A) 0.1 k/uL (0-0.7); Eosinophils % (A) 1 %; HCT 39.8 % (39.0-53.0); HGB 13.2 gm/dL (13.0-17.5); Lymphocytes # (A) 1.8 k/uL (1.0-4.8); Lymphocytes % (A) 12 %; MCH 32.1 pg (25.0-35.0); MCHC 33.2 g/dL (31.0-37.0); MCV 96.9 fL (80.0-100.0); Mean Platelet Volume 7.3; Monocytes # (A) 2.4 k/uL (0-1.0); Monocytes % (A) 15 %; Neutrophils # (A) 11.1 k/uL (1.3-7.7); Neutrophils % (A) 71 %; Platelet Count 194 k/uL (150-450); RBC 4.11 m/uL (4.30-5.90); RDW 12.7 % (11.5-15.5); WBC 15.8 k/uL (3.8-10.6)
--- NOTE | 2024-09-27 13:56 | P.PN ---
Subjective Progress Note Date: 09/27/24 Principal diagnosis: Acute hypoxic respiratory failure secondary to pneumonia and bilateral pleural effusions, possible underlying diastolic congestive heart failure. This is a 59-year-old male patient with a known history of schizophrenia and resides in a adult foster care setting who had been brought into [facility] with increasing shortness of breath on September 22, 2024. He was requiring Airvo high flow oxygen and not showing much improvement and was transferred here direct admit to the selective care unit today. Chest x-ray here reveals bilateral pleural effusion and basilar infiltrates left greater than right. Correlate for underlying CHF. Possible pneumonia. Large lobulated density in the left lobe. He is currently sitting up in a chair. Awake and alert. Somewhat uncooperative. A system safety manager is at the bedside. Continuously taking off his Airvo high flow oxygen device. This is currently set at 50 L and 80% FiO2. Procalcitonin at [place] was 2.40. He has been initiated on DuoNeb and elations, vancomycin and Zosyn. Ativan as needed. White count 14.9. Hemoglobin 13.9. Platelets 146. Sodium 136. Potassium 3.6. Bicarb 29. BUN 25. Creatinine 0.71. Glucose 157. He currently denies any worsening shortness of breath, cough or congestion. He is not clear as to why he was admitted. No family at the bedside. patient was seen today on 09/27/2024, patient remains at hypoxic, remains on Airvo at 50% FiO2 and 50 L flow patient is basically about the same seems to be more comfortable, he had a system safety manager at bedside. As at times he seems to be quite agitated and restless. Ultrasound of the chest was reviewed, may have some debris in the pleural effusion, and there is also lung tissue, hence am not planning thoracentesis at this point. My recommendation to continue antibiotics and diuretics, and continue to monitor, we will decide whether the patient could benefit from thoracentesis or a pigtail catheter placement.WBC count is 15.8 hemoglobin 13.2 basic metabolic profile is normal renal profile is normalLegione lla antigen is negative. Procalcitonin at [place] was +2.40 Objective - Vital Signs Vital signs: Vital Signs Temp 98.2 F 09/27/24 11:13 Pulse 88 09/27/24 12:04 Resp 16 09/27/24 11:13 BP 150/72 09/27/24 11:13 Pulse Ox 94 L 09/27/24 11:56 FiO2 50 09/27/24 12:07 Intake & Output 09/26/24 09/27/24 09/27/24 18:59 06:59 18:59 Intake Total 1172 472 Output Total 390 450 650 Balance 782 -450 -178 Weight 74.843 kg 78.5 kg Intake: Intake, IV Titration 700 Amount Piperacillin-Tazobactam 3 200 .375 gm In Sodium Chloride 0.9% 100 ml @ 200 mls/hr IVPB ONCE STA Rx#:[id number] Vancomycin 1,500 mg In 500 Sodium Chloride 0.9% 500 ml 500 ml @ 167 mls/hr IVPB Q12HR@0000,1200 [facility] Rx#:[id number] Oral 472 472 Output: Urine 390 450 650 Other: Voiding Method External Catheter # Voids 1 - Exam GENERAL EXAM: [age]-year-old white male, on Airvo, calm, just received Ativan prior to my evaluation. HEAD: Normocephalic. EYES: Normal reaction of pupils, equal size. NOSE: Clear with pink turbinates. THROAT: No erythema or exudates. NECK: No masses, no JVD. CHEST: No chest wall deformity. LUNGS: Equal air entry with bilateral scattered rhonchi, crackles in the bases, left greater than right. CVS: S1 and S2 normal with no audible murmur, regular rhythm. ABDOMEN: No hepatosplenomegaly, normal bowel sounds, no guarding or rigidity. SKIN: No rashes CENTRAL NERVOUS SYSTEM: Could not fully assess, patient had received Ativan, calm, system safety manager at bedside. EXTREMITIES: T no clubbing edema or cyanosis - Labs CBC & Chem 7: 09/27/24 12:10 09/27/24 12:10 Labs: Abnormal Lab Results - Last 24 Hours (Table) 09/26/24 09/26/24 09/27/24 Range/Units 11:14 16:56 12:10 WBC 15.8 H (3.8-10.6) k/uL RBC 4.11 L (4.30-5.90) m/uL Neutrophils # 11.1 H (1.3-7.7) k/uL Monocytes # 2.4 H (0-1.0) k/uL Sodium (137-145) mmol/L Creatinine (0.66-1.25) mg/dL Glucose (74-99) mg/dL POC Glucose (mg/dL) 123 H (70-110) mg/dL Hemoglobin A1c 11.4 H (<=6.0) % Total Protein (6.3-8.2) g/dL Albumin (3.5-5.0) g/dL 09/27/24 Range/Units 12:10 WBC (3.8-10.6) k/uL RBC (4.30-5.90) m/uL Neutrophils # (1.3-7.7) k/uL Monocytes # (0-1.0) k/uL Sodium 133 L (137-145) mmol/L Creatinine 0.65 L (0.66-1.25) mg/dL Glucose 115 H (74-99) mg/dL POC Glucose (mg/dL) (70-110) mg/dL Hemoglobin A1c (<=6.0) % Total Protein 5.4 L (6.3-8.2) g/dL Albumin 2.5 L (3.5-5.0) g/dL Assessment and Plan Assessment: Impression: Acute hypoxemic respiratory failure secondary to suspected bilateral pneumonia, bilateral pleural effusion, possible underlying diastolic congestive heart failure. Procalcitonin 2.40 at [place]. Echocardiogram revealed an ejection fraction of 60 to 65% Leukocytosis secondary to above Atrial fibrillation with a rapid ventricular response Schizoaffective disorder History of bipolar disorder with anxiety/depression Diabetes mellitus, type II History of mild intermittent chronic bronchial asthma History of CVA Hypertension Gastroesophageal reflux disease AF resident Recommendation: Continue antibiotics patient is now on vancomycin and Zosyn Continue treatment for his atrial fibrillation as per cardiology, patient is on metoprolol twice daily Continue and resume his home meds continue bronchodilators May or may not consider thoracentesis depending on his overall response to treatment and follow-up x-rays of the chest Will continue to follow Time with Patient: Less than 30
--- NOTE | 2024-09-27 14:33 | P.PN ---
Subjective Progress Note Date: 09/27/24 patient is a 59-year-old gentleman with past medical history significant for schizophrenia who is a resident of a adult foster care was transferred to [facility] from [facility] for worsening respiratory status. Patient initially presented to [facility] for shortness of breath and c hest pain for 4 to 5 days. According to medical records, patient was complaining of shortness of breath on exertion and chest pain that was pleuritic in nature worsened by taking deep breaths. Patient was also complaining of lethargy and weakness. There is no complaint of cough. There was no complaint of fever or chills. Patient was worked up in [facility], initial CT chest done showed bilateral lower lobe consolidation greater on the left suspicious for pneumonia. Patient was admitted there and was started on IV antibiotics. Patient also had 2D echo done that showed normal LV systolic function with LVEF of 66 65%, there was some diastolic dysfunction present. No valvular pathology seen. While at [facility], patient respiratory status worsened, patient was requiring heated high flow. Because of respiratory status, transfer was requested and patient was transferred to [facility] Patient admitted to internal medicine service 09/27. Patient seen and examined. Patient is doing better compared to yesterday, patient did not answer many of my questions. REVIEW OF SYSTEMS: Review of system cannot be obtained as patient refusing to answer questions PHYSICAL EXAMINATION: GENERAL: The patient is alert alert, ill looking HEENT: Pupils are round and equally reacting to light. EOMI. No scleral icterus. No conjunctival pallor. Normocephalic, atraumatic. No pharyngeal erythema. No thyromegaly. CARDIOVASCULAR: S1 and S2 present. No murmurs, rubs, or gallops. PULMONARY: Coarse breath sound bilaterally, bilateral crackles audible, diminished breath sounds at bases ABDOMEN: Soft, nontender, nondistended, normoactive bowel sounds. No palpable organomegaly. MUSCULOSKELETAL: No joint swelling or deformity. EXTREMITIES: No cyanosis, clubbing, or pedal edema. NEUROLOGICAL: Gross neurological examination did not reveal any focal deficits. SKIN: No rashes. Assessment and plan Acute hypoxemic respiratory failure Bilateral pleural effusions Bacterial pneumonia Paroxysmal A-fib with RVR ruled out Sinus tachycardia Leukocytosis secondary to above Schizoaffective disorder History of bipolar disorder with anxiety/depression Diabetes mellitus, type II History of CVA Hypertension Gastroesophageal reflux disease Monitor vital signs Monitor CBC Monitor CMP Continue ox supplementation aggressive bronchopulmonary hygiene Follow-up on blood cultures Continue breathing treatments Continue IV Zosyn Continue IV Solu-Medrol Continue Lopressor and Cardizem Ordered ultrasound of chest Pulmonology following ID following Cardiology evaluated, recommend beta-blockers, no need for repeating 2D echo Labs and medication were reviewed.. Continue same treatment. Continue with symptomatic treatment. Resume home medication. Monitor labs and vitals. DVT and GI prophylaxis. Further recommendations as per clinical course of the patient Dictation was produced using [employer] dictation software. please excuse any grammatical, word or spelling errors. Objective - Vital Signs Vital signs: Vital Signs Temp 97.0 F L 09/27/24 08:00 Pulse 78 09/27/24 09:28 Resp 20 09/27/24 08:00 BP 163/79 09/27/24 08:00 Pulse Ox 94 L 09/27/24 09:21 FiO2 50 09/27/24 09:21 Intake & Output 09/26/24 09/27/24 09/27/24 18:59 06:59 18:59 Intake Total 1172 472 Output Total 390 450 Balance 782 -450 472 Weight 74.843 kg 78.5 kg Intake: Intake, IV Titration 700 Amount Piperacillin-Tazobactam 3 200 .375 gm In Sodium Chloride 0.9% 100 ml @ 200 mls/hr IVPB ONCE STA Rx#:[id number] Vancomycin 1,500 mg In 500 Sodium Chloride 0.9% 500 ml 500 ml @ 167 mls/hr IVPB Q12HR@0000,1200 [facility] Rx#:[id number] Oral 472 472 Output: Urine 390 450 Other: Voiding Method External Catheter # Voids 1 - Labs CBC & Chem 7: 09/27/24 12:10 09/27/24 12:10 Labs: Abnormal Lab Results - Last 24 Hours (Table) 09/26/24 09/26/24 09/26/24 Range/Units 11:14 11:14 11:55 WBC 14.9 H (3.8-10.6) k/uL RBC 4.21 L (4.30-5.90) m/uL Plt Count 146 L (150-450) k/uL Neutrophils # 11.8 H (1.3-7.7) k/uL Lymphocytes # 0.6 L (1.0-4.8) k/uL Monocytes # 2.0 H (0-1.0) k/uL Sodium 136 L (137-145) mmol/L BUN 25 H (9-20) mg/dL Glucose 157 H (74-99) mg/dL POC Glucose (mg/dL) 221 H (70-110) mg/dL 09/26/ Range/Units 16:56 WBC (3.8-10.6) k/uL RBC (4.30-5.90) m/uL Plt Count (150-450) k/uL Neutrophils # (1.3-7.7) k/uL Lymphocytes # (1.0-4.8) k/uL Monocytes # (0-1.0) k/uL Sodium (137-145) mmol/L BUN (9-20) mg/dL Glucose (74-99) mg/dL POC Glucose (mg/dL) 123 H (70-110) mg/dL
--- NOTE | 2024-09-27 14:39 | US ---
EXAMINATION TYPE: US chest DATE OF EXAM: 09/27/2024 COMPARISON: NONE CLINICAL INDICATION: Male, 59 years old with history of Left pleural effusion; outside CT showed locu lated left chest TECHNIQUE: Grayscale imaging of the chest. Targeted ultrasound of the posterior lower Left FINDINGS: EXAM MEASUREMENTS: Left Pleural Effusion pocket size: 8.8cm - pocket is loculated Left side NOT marked Pulmonologists are able to review the images in the patient?s EMR. IMPRESSIONS: There is a loculated complex left pleural effusion. [facility], , 09/27/2024 2:37 PM
--- NOTE | 2024-09-27 15:06 | P.PN ---
Subjective HISTORY OF PRESENT ILLNESS: HPI per Dr. Moss 59-year-old with past medical history of schizophrenia, close had traumatic brain injury, bipolar disorder, resident of an adult foster care was presented from [facility] to [facility] because of worsening shortness of breath. He initially presented to [facility] because of increased shortness of breath, increased cough and chest pain that would get worse with taking deep breaths. Patient has been increasingly lethargic and weak. Initial workup at [facility] with chest x-ray showed bilateral lower lobe consolidation greater on the left side suspicious of pneumonia. He was started on IV antibiotics. He had echocardiogram done there which showed an EF of 60 to 65% with mild diastolic dysfunction. There was no significant valvular dysfunction. Cardiology was consulted for concerns of atrial fibrillation on admission ECG at [facility]. On admission to the floor at [facility] he was significantly agitated. An EKG performed at time showed narrow complex tachycardia with heart rate in 160s to 170s. As soon as patient was stabilized and patient became calm, heart rate came down to 80s and was in sinus rhythm. His ECG at [facility] and ECG after stabilization was normal sinus rhythm. 09/27/2024 Patient examined this morning the bedside. Patient is currently lethargic. He has a project safety manager at the bedside. He is resting comfortably with no complaints of chest pain or shortness of breath. Telemetry reveals sinus mechanism. PHYSICAL EXAM: VITAL SIGNS: Reviewed. GENERAL: Well-developed in no acute distress. NECK: Supple. No JVD or thyromegaly LUNGS: Respirations even and unlabored. Lungs essentially clear to auscultation bilaterally. HEART: Regular rate and rhythm. S1 and S2 heard. EXTREMITIES: Normal range of motion. No clubbing or cyanosis. Peripheral pulses intact. No lower extremity edema ASSESSMENT: Sinus tachycardia most likely because of respiratory distress and agitation Complicated pneumonia and Sepsis Bipolar disorder Schizophrenia Close head CVA Type 2 diabetes Cardiac testing Echo from November 21, 2023 shows EF 55%, mild mitral regurgitation, limited quality study PLAN: Continue current cardiac medications No further inpatient recommendations from a cardiac standpoint We will sign off. Please reconsult if needed. Nurse practitioner note has been reviewed by physician. Signing provider agrees with the documented findings, assessment, and plan of care documented by DIE KEEPER as a scribe. Objective - Vital Signs Vital signs: Vital Signs Temp 98.2 F 09/27/24 11:13 Pulse 83 09/27/24 13:58 Resp 16 09/27/24 13:58 BP 150/72 09/27/24 11:13 Pulse Ox 94 L 09/27/24 11:56 FiO2 50 09/27/24 12:07 Intake & Output 09/26/24 09/27/24 09/27/24 18:59 06:59 18:59 Intake Total 1172 708 Output Total 390 450 650 Balance 782 -450 58 Weight 74.843 kg 78.5 kg 78.5 kg Intake: Intake, IV Titration 700 Amount Piperacillin-Tazobactam 3 200 .375 gm In Sodium Chloride 0.9% 100 ml @ 200 mls/hr IVPB ONCE STA Rx#:[id number] Vancomycin 1,500 mg In 500 Sodium Chloride 0.9% 500 ml 500 ml @ 167 mls/hr IVPB Q12HR@0000,1200 [facility] Rx#:[id number] Oral 472 708 Output: Urine 390 450 650 Other: Voiding Method External Catheter External Catheter # Voids 1 # Bowel Movements 1 - Labs CBC & Chem 7: 09/27/24 12:10 09/27/24 12:10 Labs: Abnormal Lab Results - Last 24 Hours (Table) 09/26/24 09/26/24 09/27/24 Range/Units 11:14 16:56 12:10 WBC 15.8 H (3.8-10.6) k/uL RBC 4.11 L (4.30-5.90) m/uL Neutrophils # 11.1 H (1.3-7.7) k/uL Monocytes # 2.4 H (0-1.0) k/uL Sodium (137-145) mmol/L Creatinine (0.66-1.25) mg/dL Glucose (74-99) mg/dL POC Glucose (mg/dL) 123 H (70-110) mg/dL Hemoglobin A1c 11.4 H (<=6.0) % Total Protein (6.3-8.2) g/dL Albumin (3.5-5.0) g/dL 09/27/24 Range/Units 12:10 WBC (3.8-10.6) k/uL RBC (4.30-5.90) m/uL Neutrophils # (1.3-7.7) k/uL Monocytes # (0-1.0) k/uL Sodium 133 L (137-145) mmol/L Creatinine 0.65 L (0.66-1.25) mg/dL Glucose 115 H (74-99) mg/dL POC Glucose (mg/dL) (70-110) mg/dL Hemoglobin A1c (<=6.0) % Total Protein 5.4 L (6.3-8.2) g/dL Albumin 2.5 L (3.5-5.0) g/dL
--- NOTE | 2024-09-27 15:21 | P.PN ---
Subjective Progress Note Date: 09/27/24 Principal diagnosis: Reason for follow-up is leukocytosis and pneumonia Patient is a 59-year-old male with a past medical history significant for Schizophrenia resident of adult foster care was sent to the [facility] concerning for increasing shortness of breath with subsequent worsening of his symptoms with the patient has been transferred to [facility] concerning for pneumonia. On today's evaluation that is 09/27/2024, the patient continues to be afebrile, the patient is on high flow nasal cannula oxygen however breathing comfortably, the Pt denies having any chest pain or any worsening cough, the patient denies having any abdominal pain no vomiting or any diarrhea has been reported by the nursing staff. Patient white count 15.8, creatinine 0.65 urine for Legionella antigen is negative chest ultrasound left effusion 8.8 cm pocket is loculated Objective - Vital Signs Vital signs: Vital Signs Temp 98.2 F 09/27/24 11:13 Pulse 83 09/27/24 13:58 Resp 16 09/27/24 13:58 BP 150/72 09/27/24 11:13 Pulse Ox 94 L 09/27/24 11:56 FiO2 50 09/27/24 12:07 Intake & Output 09/26/24 09/27/24 09/27/24 18:59 06:59 18:59 Intake Total 1172 708 Output Total 390 450 650 Balance 782 -450 58 Weight 74.843 kg 78.5 kg 78.5 kg Intake: Intake, IV Titration 700 Amount Piperacillin-Tazobactam 3 200 .375 gm In Sodium Chloride 0.9% 100 ml @ 200 mls/hr IVPB ONCE STA Rx#:[id number] Vancomycin 1,500 mg In 500 Sodium Chloride 0.9% 500 ml 500 ml @ 167 mls/hr IVPB Q12HR@0000,1200 [facility] Rx#:[id number] Oral 472 708 Output: Urine 390 450 650 Other: Voiding Method External Catheter External Catheter # Voids 1 # Bowel Movements 1 - Exam GENERAL DESCRIPTION: Middle-age male lying in bed in no distress RESPIRATORY SYSTEM: Unlabored breathing , decreased breath sounds at bases HEART: S1 S2 regular rate and rhythm , ABDOMEN: Soft , no tenderness EXTREMITIES: No edema feet - Labs CBC & Chem 7: 09/27/24 12:10 09/27/24 12:10 Labs: Abnormal Lab Results - Last 24 Hours (Table) 09/26/24 09/26/24 09/27/24 Range/Units 11:14 16:56 12:10 WBC 15.8 H (3.8-10.6) k/uL RBC 4.11 L (4.30-5.90) m/uL Neutrophils # 11.1 H (1.3-7.7) k/uL Monocytes # 2.4 H (0-1.0) k/uL Sodium (137-145) mmol/L Creatinine (0.66-1.25) mg/dL Glucose (74-99) mg/dL POC Glucose (mg/dL) 123 H (70-110) mg/dL Hemoglobin A1c 11.4 H (<=6.0) % Total Protein (6.3-8.2) g/dL Albumin (3.5-5.0) g/dL 09/27/24 Range/Units 12:10 WBC (3.8-10.6) k/uL RBC (4.30-5.90) m/uL Neutrophils # (1.3-7.7) k/uL Monocytes # (0-1.0) k/uL Sodium 133 L (137-145) mmol/L Creatinine 0.65 L (0.66-1.25) mg/dL Glucose 115 H (74-99) mg/dL POC Glucose (mg/dL) (70-110) mg/dL Hemoglobin A1c (<=6.0) % Total Protein 5.4 L (6.3-8.2) g/dL Albumin 2.5 L (3.5-5.0) g/dL Assessment and Plan (1) Leukocytosis Current Visit: Yes Status: Acute Code(s): D72.829 - ELEVATED WHITE BLOOD CELL COUNT, UNSPECIFIED SNOMED Code(s): 880725174 (2) Pneumonia Current Visit: Yes Status: Acute Code(s): J18.9 - PNEUMONIA, UNSPECIFIED ORGANISM SNOMED Code(s): 497485088 Plan: 1patient presenting to the hospital for evaluation of increasing shortness of breath in this patient who did have evidence of bilateral effusion and basilar atelectasis more on the left side patient did have elevated white count apparently he did have elevated procalcitonin at the [facility], concerning for possible pneumonia question of community-acquired versus gram- negative less likely MRSA 2-try to obtain sputum for Gram stain culture and MRSA nasal screen 3patient did have chest ultrasound concerning for 8 cm loculated left effusion pulmonary is following the patient 3-patient to continue with Zosyn antibiotic clinical course closely Dictation was produced using [employer] dictation software. please excuse any grammatical, word or spelling errors.
[2024-09-27 17:05] LABS: Glucose,Whole Blood 182 mg/dL (70-110)
[2024-09-27 20:15] LABS: Glucose,Whole Blood 232 mg/dL (70-110)
[2024-09-27] MEDS: ACETAMINOPHEN TAB 325 MG TAB PO PRN (21:34)
[2024-09-27] MEDS: traZODone HCL 50 MG TAB PO PRN (21:34)
[2024-09-28 06:15] LABS: Glucose,Whole Blood 186 mg/dL (70-110)
[2024-09-28 11:09] LABS: ALT 13 U/L (4-49); African American GFR (CKD) >90 (>60 ml/min/1.73 sqM); Albumin 2.5 g/dL (3.5-5.0); Anion Gap 9 mmol/L; Blood Urea Nitrogen 19 mg/dL (9-20); Calcium 8.5 mg/dL (8.4-10.2); Carbon Dioxide 25 mmol/L (22-30); Chloride 98 mmol/L (98-107); Glucose 185 mg/dL (74-99); Non-African American GFR(CKD) >90 (>60 ml/min/1.73 sqM); Sodium 132 mmol/L (137-145); Total Bilirubin 0.8 mg/dL (0.2-1.3); Total Protein 5.3 g/dL (6.3-8.2)
[2024-09-28 11:38] LABS: Glucose,Whole Blood 263 mg/dL (70-110)
[2024-09-28 11:51] LABS: AST 29 U/L (17-59); Alkaline Phosphatase 87 U/L (38-126); Potassium 3.8 mmol/L (3.5-5.1)
[2024-09-28 13:23] LABS: HCT 42.5 % (39.0-53.0); HGB 14.5 gm/dL (13.0-17.5); MCH 32.6 pg (25.0-35.0); Mean Platelet Volume 7.8; Platelet Count 197 k/uL (150-450); RBC 4.43 m/uL (4.30-5.90); RDW 12.7 % (11.5-15.5); WBC 15.2 k/uL (3.8-10.6)
[2024-09-28 14:20] LABS: Band Neutrophils % 5 %; Basophils # (M) 0.15 k/uL (0-0.2); Lymphocytes # (M) 1.37 k/uL (1.0-4.8); Metamyelocytes # (M) 0.46 k/uL (0); Metamyelocytes % 3 %; Monocytes # (M) 2.74 k/uL (0-1.0); Myelocytes # (M) 0.15 k/uL (0); Myelocytes % 1 %; Neutrophils % (M) 66 %; Nucleated Red Blood Cells 0 /100 WBC (0-0); Total Cells Counted 200
[2024-09-28 14:21] LABS: Rouleaux Present
--- NOTE | 2024-09-28 15:06 | P.PN ---
Subjective Progress Note Date: 09/28/24 patient is a 59-year-old gentleman with past medical history significant for schizophrenia who is a resident of a adult foster care was transferred to [facility] from [facility] for worsening respiratory status. Patient initially presented to [facility] for shortness of breath and c hest pain for 4 to 5 days. According to medical records, patient was complaining of shortness of breath on exertion and chest pain that was pleuritic in nature worsened by taking deep breaths. Patient was also complaining of lethargy and weakness. There is no complaint of cough. There was no complaint of fever or chills. Patient was worked up in [facility], initial CT chest done showed bilateral lower lobe consolidation greater on the left suspicious for pneumonia. Patient was admitted there and was started on IV antibiotics. Patient also had 2D echo done that showed normal LV systolic function with LVEF of 66 65%, there was some diastolic dysfunction present. No valvular pathology seen. While at [facility], patient respiratory status worsened, patient was requiring heated high flow. Because of respiratory status, transfer was requested and patient was transferred to [facility] Patient admitted to internal medicine service 09/27. Patient seen and examined. Patient is doing better compared to yesterday, patient did not answer many of my questions. 09/28. Patient seen and examined. Patient continues to be on Airvo. REVIEW OF SYSTEMS: States he does not feel good Denies any chest pain. Denies any shortness of breath Denies any nausea, vomiting PHYSICAL EXAMINATION: GENERAL: The patient is alert alert, ill looking HEENT: Pupils are round and equally reacting to light. EOMI. No scleral icterus. No conjunctival pallor. Normocephalic, atraumatic. No pharyngeal erythema. No thyromegaly. CARDIOVASCULAR: S1 and S2 present. No murmurs, rubs, or gallops. PULMONARY: Coarse breath sound bilaterally, bilateral crackles audible, diminished breath sounds at bases ABDOMEN: Soft, nontender, nondistended, normoactive bowel sounds. No palpable or ganomegaly. MUSCULOSKELETAL: No joint swelling or deformity. EXTREMITIES: No cyanosis, clubbing, or pedal edema. NEUROLOGICAL: Gross neurological examination did not reveal any focal deficits. SKIN: No rashes. Assessment and plan Acute hypoxemic respiratory failure Bilateral pleural effusions Bacterial pneumonia Paroxysmal A-fib with RVR ruled out Sinus tachycardia Leukocytosis secondary to above Schizoaffective disorder History of bipolar disorder with anxiety/depression Diabetes mellitus, type II History of CVA Hypertension Gastroesophageal reflux disease Monitor vital signs Monitor CBC Monitor CMP Continue ox supplementation aggressive bronchopulmonary hygiene Follow-up on blood cultures Continue breathing treatments Continue IV Zosyn Continue IV Solu-Medrol Continue Lopressor and Cardizem Pulmonology following ID following Cardiology evaluated, recommend beta-blockers, no need for repeating 2D echo Labs and medication were reviewed.. Continue same treatment. Continue with symptomatic treatment. Resume home medication. Monitor labs and vitals. DVT and GI prophylaxis. Further recommendations as per clinical course of the patient Dictation was produced using [employer] dictation software. please excuse any grammatical, word or spelling errors. Objective - Vital Signs Vital signs: Vital Signs Temp 99.0 F 09/28/24 10:59 Pulse 76 09/28/24 13:19 Resp 20 09/28/24 13:19 BP 163/73 09/28/24 10:59 Pulse Ox 93 L 09/28/24 10:59 FiO2 50 09/28/24 12:33 Intake & Output 09/27/24 09/28/24 09/28/24 18:59 06:59 18:59 Intake Total 708 340 240 Output Total 7814 876 9502 Balance -878 -210 -907 Weight 78.5 kg 77 kg Intake: Intake, IV Titration 100 Amount Piperacillin-Tazobactam 3 100 .375 gm In Sodium Chloride 0.9% 100 ml @ 25 mls/hr IVPB Q8H [facility] Rx#: [id number] Oral 708 240 240 Output: Urine [id number] Other: Voiding Method External Catheter External Catheter External Catheter # Bowel Movements 1 1 1 - Labs CBC & Chem 7: 09/28/24 13:00 09/28/24 09:09 Labs: Abnormal Lab Results - Last 24 Hours (Table) 09/27/24 09/27/24 09/28/24 Range/Units 17:04 20:13 06:13 WBC (3.8-10.6) k/uL Neutrophils # (Manual) (1.3-7.7) k/uL Monocytes # (Manual) (0-1.0) k/uL Metamyelocytes # (Man) (0) k/uL Myelocytes # (Manual) (0) k/uL Sodium (137-145) mmol/L Creatinine (0.66-1.25) mg/dL Glucose (74-99) mg/dL POC Glucose (mg/dL) 182 H 232 H 186 H (70-110) mg/dL Total Protein (6.3-8.2) g/dL Albumin (3.5-5.0) g/dL 09/28/24 09/28/24 09/28/24 Range/Units 09:09 11:36 13:00 WBC 15.2 H (3.8-10.6) k/uL Neutrophils # (Manual) 10.70 H (1.3-7.7) k/uL Monocytes # (Manual) 2.74 H (0-1.0) k/uL Metamyelocytes # (Man) 0.46 H (0) k/uL Myelocytes # (Manual) 0.15 H (0) k/uL Sodium 132 L (137-145) mmol/L Creatinine 0.65 L (0.66-1.25) mg/dL Glucose 185 H (74-99) mg/dL POC Glucose (mg/dL) 263 H (70-110) mg/dL Total Protein 5.3 L (6.3-8.2) g/dL Albumin 2.5 L (3.5-5.0) g/dL Microbiology - Last 24 Hours (Table) 09/26/24 19:24 Nasal Screen MRSA/MSSA - Final Nasal Swab 09/26/24 11:14 Blood Culture - Preliminary Blood
--- NOTE | 2024-09-28 16:04 | P.PN ---
Subjective Progress Note Date: 09/28/24 Principal diagnosis: Acute hypoxic respiratory failure secondary to pneumonia and bilateral pleural effusions, possible underlying diastolic congestive heart failure. This is a 59-year-old male patient with a known history of schizophrenia and resides in a adult foster care setting who had been brought into [facility] with increasing shortness of breath on September 22, 2024. He was requiring Airvo high flow oxygen and not showing much improvement and was transferred here direct admit to the selective care unit today. Chest x-ray here reveals bilateral pleural effusion and basilar infiltrates left greater than right. Correlate for underlying CHF. Possible pneumonia. Large lobulated density in the left lobe. He is currently sitting up in a chair. Awake and alert. Somewhat uncooperative. A safety risk lead is at the bedside. Continuously taking off his Airvo high flow oxygen device. This is currently set at 50 L and 80% FiO2. Procalcitonin at [place] [facility] [place] was 2.40. He has been initiated on DuoNeb and elations, vancomycin and Zosyn. Ativan as needed. White count 14.9. Hemoglobin 13.9. Platelets 146. Sodium 136. Potassium 3.6. Bicarb 29. BUN 25. Creatinine 0.71. Glucose 157. He currently denies any worsening shortness of breath, cough or congestion. He is not clear as to why he was admitted. No family at the bedside. patient was seen today on 09/27/2024, patient remains at hypoxic, remains on Airvo at 50% FiO2 and 50 L flow patient is basically about the same seems to be more comfortable, he had a safety risk lead at bedside. As at times he seems to be quite agitated and restless. Ultrasound of the chest was reviewed, may have some debris in the pleural effusion, and there is also lung tissue, hence am not planning thoracentesis at this point. My recommendation to continue antibiotics and diuretics, and continue to monitor, we will decide whether the patient could benefit from thoracentesis or a pigtail catheter placement.WBC count is 15.8 hemoglobin 13.2 basic metabolic profile is normal renal profile is normalLegione lla antigen is negative. Procalcitonin at [facility] was +2.40 Patient was seen today on 09/28/2024, basically the patient is about the same, remains on Airvo, 50% FiO2 and 50% liters flow, mental status is basically about the same, patient is encephalopathic, reviewed the ultrasound of the chest, p blanka seems to have loculated pleural effusion and I am recommending a pigtail catheter placement next week by interventional radiology in the meantime continue antibiotics. Continues to have leukocytosis, continues to have relatively normal electrolytes. Patient had elevated procalcitonin level on admission Objective - Vital Signs Vital signs: Vital Signs Temp 99.7 F H 09/28/24 15:58 Pulse 89 09/28/24 15:58 Resp 20 09/28/24 15:58 BP 177/68 09/28/24 15:58 Pulse Ox 93 L 09/28/24 10:59 FiO2 50 09/28/24 12:33 Intake & Output 09/27/24 09/28/24 09/28/24 18:59 06:59 18:59 Intake Total 708 340 240 Output Total 2845 806 0739 Balance -492 -210 -860 Weight 78.5 kg 77 kg Intake: Intake, IV Titration 100 Amount Piperacillin-Tazobactam 3 100 .375 gm In Sodium Chloride 0.9% 100 ml @ 25 mls/hr IVPB Q8H [facility] Rx#: [id number] Oral 708 240 240 Output: Urine 5149 [id number] [id number] Other: Voiding Method External Catheter External Catheter External Catheter # Bowel Movements 1 1 1 - Exam GENERAL EXAM: [age]-year-old white male, on Airvo, HEAD: Normocephalic. EYES: Normal reaction of pupils, equal size. NOSE: Clear with pink turbinates. THROAT: No erythema or exudates. NECK: No masses, no JVD. CHEST: No chest wall deformity. LUNGS: Equal air entry with bilateral scattered rhonchi, crackles in the bases, left greater than right. CVS: S1 and S2 normal with no audible murmur, regular rhythm. ABDOMEN: No hepatosplenomegaly, normal bowel sounds, no guarding or rigidity. SKIN: No rashes CENTRAL NERVOUS SYSTEM: Encephalopathic, not a great historian EXTREMITIES: no clubbing edema or cyanosis - Labs CBC & Chem 7: 09/28/24 13:00 09/28/24 09:09 Labs: Abnormal Lab Results - Last 24 Hours (Table) 09/27/24 09/27/24 09/28/24 Range/Units 17:04 20:13 06:13 WBC (3.8-10.6) k/uL Neutrophils # (Manual) (1.3-7.7) k/uL Monocytes # (Manual) (0-1.0) k/uL Metamyelocytes # (Man) (0) k/uL Myelocytes # (Manual) (0) k/uL Sodium (137-145) mmol/L Creatinine (0.66-1.25) mg/dL Glucose (74-99) mg/dL POC Glucose (mg/dL) 182 H 232 H 186 H (70-110) mg/dL Total Protein (6.3-8.2) g/dL Albumin (3.5-5.0) g/dL 09/28/24 09/28/24 09/28/24 Range/Units 09:09 11:36 13:00 WBC 15.2 H (3.8-10.6) k/uL Neutrophils # (Manual) 10.70 H (1.3-7.7) k/uL Monocytes # (Manual) 2.74 H (0-1.0) k/uL Metamyelocytes # (Man) 0.46 H (0) k/uL Myelocytes # (Manual) 0.15 H (0) k/uL Sodium 132 L (137-145) mmol/L Creatinine 0.65 L (0.66-1.25) mg/dL Glucose 185 H (74-99) mg/dL POC Glucose (mg/dL) 263 H (70-110) mg/dL Total Protein 5.3 L (6.3-8.2) g/dL Albumin 2.5 L (3.5-5.0) g/dL Microbiology - Last 24 Hours (Table) 09/26/24 19:24 Nasal Screen MRSA/MSSA - Final Nasal Swab 09/26/24 11:14 Blood Culture - Preliminary Blood Assessment and Plan Assessment: Impression: Acute hypoxemic respiratory failure secondary to suspected bilateral pneumonia, bilateral pleural effusion, possible underlying diastolic congestive heart failure. Procalcitonin 2.40 at [place] [facility] [place]. Echocardiogram revealed an ejection fraction of 60 to 65% Leukocytosis secondary to above Atrial fibrillation with a rapid ventricular response Schizoaffective disorder History of bipolar disorder with anxiety/depression Diabetes mellitus, type II History of mild intermittent chronic bronchial asthma History of CVA Hypertension Gastroesophageal reflux disease AF resident Recommendation: Continue antibiotics patient is on Zosyn Continue treatment for his atrial fibrillation as per cardiology, patient is on metoprolol twice daily Will order a pigtail catheter placement for his loculated pleural effusion to be done by interventional radiology on Monday continue bronchodilators Will continue to follow Time with Patient: Less than 30
[2024-09-28 16:23] LABS: Glucose,Whole Blood 143 mg/dL (70-110)
[2024-09-28 19:58] LABS: Glucose,Whole Blood 197 mg/dL (70-110)
[2024-09-28] MEDS: ACETAMINOPHEN IV (For NPO) 1,000 MG in EMPTY BAG 1 BAG IVPB ONE (21:11)
[2024-09-28] MEDS: SODIUM CHLORIDE 0.9% 1,000 ML IV SCH (21:14)
--- NOTE | 2024-09-28 23:01 | CT ---
EXAMINATION TYPE: CT brain wo con CT DLP: 1302 mGycm, Automated exposure control for dose reduction was used. DATE OF EXAM: 09/28/2024 10:47 PM COMPARISON: CT brain C-spine 11/06/2023, MRI brain 07/30/2015 CLINICAL INDICATION:Male, 59 years old with history of AMS, AMS TECHNIQUE: Brain: Multiple axial CT images of the brain were obtained without IV contrast. . Coronal and sagitta l reformats reviewed. FINDINGS: Brain: Extra-axial spaces: No abnormal extra-axial fluid collections. Ventricular system: Within normal limits Cerebral parenchyma: No acute intraparenchymal hemorrhage or mass effect. The sarkar-white junction is well differentiated. Stable prominent perivascular space versus remote lacunar infarct within the le ft basal ganglia. Cerebellum: Unremarkable. Mass effect: No evidence of midline shift. Intracranial vasculature: Atherosclerotic calcifications of the intracranial vessels. Soft tissues: Normal. Calvarium/osseous structures: No depressed skull fracture. Paranasal sinuses and mastoid air cells: Mild scattered paranasal sinus disease. Visualized orbits: Orbital contents are intact. IMPRESSION: 1. No acute intracranial process. 2. Stable prominent perivascular space versus remote lacunar infarct within the left basal ganglia. [facility], , 09/28/2024 10:59 PM
[2024-09-29 04:00] LABS: Glucose,Whole Blood 221 mg/dL (70-110)
[2024-09-29 06:09] LABS: Glucose,Whole Blood 208 mg/dL (70-110)
[2024-09-29 11:43] LABS: Glucose,Whole Blood 223 mg/dL (70-110)
--- NOTE | 2024-09-29 14:32 | P.PN ---
Subjective Progress Note Date: 09/29/24 patient is a 59-year-old gentleman with past medical history significant for schizophrenia who is a resident of a adult foster care was transferred to [facility] from [facility] for worsening respiratory status. Patient initially presented to [facility] for shortness of breath and c hest pain for 4 to 5 days. According to medical records, patient was complaining of shortness of breath on exertion and chest pain that was pleuritic in nature worsened by taking deep breaths. Patient was also complaining of lethargy and weakness. There is no complaint of cough. There was no complaint of fever or chills. Patient was worked up in [facility], initial CT chest done showed bilateral lower lobe consolidation greater on the left suspicious for pneumonia. Patient was admitted there and was started on IV antibiotics. Patient also had 2D echo done that showed normal LV systolic function with LVEF of 66 65%, there was some diastolic dysfunction present. No valvular pathology seen. While at [facility], patient respiratory status worsened, patient was requiring heated high flow. Because of respiratory status, transfer was requested and patient was transferred to [facility] Patient admitted to internal medicine service 09/27. Patient seen and examined. Patient is doing better compared to yesterday, patient did not answer many of my questions. 09/28. Patient seen and examined. Patient continues to be on Airvo. 09/29. Patient seen examined. Patient was agitated overnight and received Ativan. Continues to require heated high flow. REVIEW OF SYSTEMS: Review of system cannot be obtained as patient was agitated and received Ativan PHYSICAL EXAMINATION: GENERAL: The patient is lethargic t, ill looking HEENT: Pupils are round and equally reacting to light. EOMI. No scleral icterus. No conjunctival pallor. Normocephalic, atraumatic. No pharyngeal erythema. No thyromegaly. CARDIOVASCULAR: S1 and S2 present. No murmurs, rubs, or gallops. PULMONARY: Coarse breath sound bilaterally, bilateral crackles audible, diminished breath sounds at bases ABDOMEN: Soft, nontender, nondistended, normoactive bowel sounds. No palpable organomegaly. MUSCULOSKELETAL: No joint swelling or deformity. EXTREMITIES: No cyanosis, clubbing, or pedal edema. NEUROLOGICAL: Gross neurological examination did not reveal any focal deficits. SKIN: No rashes. Assessment and plan Acute hypoxemic respiratory failure Bilateral pleural effusions Bacterial pneumonia Paroxysmal A-fib with RVR ruled out Sinus tachycardia Leukocytosis secondary to above Schizoaffective disorder History of bipolar disorder with anxiety/depression Diabetes mellitus, type II History of CVA Hypertension Gastroesophageal reflux disease Monitor vital signs Monitor CBC Monitor CMP Continue ox supplementation aggressive bronchopulmonary hygiene Follow-up on blood cultures Continue breathing treatments Continue IV Zosyn Continue Lopressor and Cardizem Pulmonology following, consulted IR for pigtail catheter placement for his loculated pleural effusion . ID following Cardiology evaluated, recommend beta-blockers, no need for repeating 2D echo Labs and medication were reviewed.. Continue same treatment. Continue with symptomatic treatment. Resume home medication. Monitor labs and vitals. DVT and GI prophylaxis. Further recommendations as per clinical course of the patient Dictation was produced using [employer] dictation software. please excuse any grammatical, word or spelling errors. Objective - Vital Signs Vital signs: Vital Signs Temp 97.4 F L 09/29/24 11:27 Pulse 59 L 09/29/24 12:27 Resp 22 09/29/24 11:27 BP 122/68 09/29/24 11:27 Pulse Ox 95 09/29/24 12:18 FiO2 50 09/29/24 12:18 Intake & Output 09/28/24 09/29/24 09/29/24 18:59 06:59 18:59 Intake Total 240 1080 600 Output Total 1525 Balance -1285 1080 600 Weight 77.5 kg Intake: Intake, IV Titration 400 Amount Piperacillin-Tazobactam 3 100 .375 gm In Sodium Chloride 0.9% 100 ml @ 25 mls/hr IVPB Q8H [facility] Rx#: [id number] Sodium Chloride 0.9% 1, 300 000 ml @ 75 mls/hr IV . [id number] [facility] Rx#:[id number] Oral 240 1080 200 Output: Urine 1525 Other: Voiding Method External Catheter External Catheter External Catheter # Bowel Movements 1 - Labs CBC & Chem 7: 09/28/24 13:00 09/28/24 09:09 Labs: Abnormal Lab Results - Last 24 Hours (Table) 09/28/24 09/28/24 09/29/24 Range/Units 16:21 19:56 01:48 POC Glucose (mg/dL) 143 H 197 H (70-110) mg/dL SARS-CoV-2 (PCR) Detected A (Not Detectd) 09/29/24 09/29/24 09/29/24 Range/Units 03:58 06:07 11:41 POC Glucose (mg/dL) 221 H 208 H 223 H (70-110) mg/dL SARS-CoV-2 (PCR) (Not Detectd) Microbiology - Last 24 Hours (Table) 09/26/24 11:14 Blood Culture - Preliminary Blood
--- NOTE | 2024-09-29 14:36 | P.PN ---
Subjective Progress Note Date: 09/28/24 Principal diagnosis: Reason for follow-up is leukocytosis and pneumonia Patient is a 59-year-old male with a past medical history significant for Schizophrenia resident of adult foster care was sent to the [facility] concerning for increasing shortness of breath with subsequent worsening of his symptoms with the patient has been transferred to [facility] concerning for pneumonia. On today's evaluation that is 09/28/2024, patient did not have any fever and denies any chills, patient is breathing slightly comfortably however requiring high flow nasal cannula oxygen, patient with no chest pain or any worsening cough patient did not have any abdominal pain nausea vomiting. Patient white count is 15.2, creatinine 0.65 Objective - Vital Signs Vital signs: Vital Signs Temp 99.0 F 09/28/24 10:59 Pulse 76 09/28/24 13:19 Resp 20 09/28/24 13:19 BP 163/73 09/28/24 10:59 Pulse Ox 93 L 09/28/24 10:59 FiO2 50 09/28/24 12:33 Intake & Output 09/27/24 09/28/24 09/28/24 18:59 06:59 18:59 Intake Total 708 340 240 Output Total 4658 655 2547 Balance -679 -551 -228 Weight 78.5 kg 77 kg Intake: Intake, IV Titration 100 Amount Piperacillin-Tazobactam 3 100 .375 gm In Sodium Chloride 0.9% 100 ml @ 25 mls/hr IVPB Q8H [facility] Rx#: [id number] Oral 708 240 240 Output: Urine 2172 [id number] Other: Voiding Method External Catheter External Catheter External Catheter # Bowel Movements 1 1 1 - Exam GENERAL DESCRIPTION: Middle-age male lying in bed in no distress RESPIRATORY SYSTEM: Unlabored breathing , decreased breath sounds at bases HEART: S1 S2 regular rate and rhythm , ABDOMEN: Soft , no tenderness EXTREMITIES: No edema feet - Labs CBC & Chem 7: 09/28/24 13:00 09/28/24 09:09 Labs: Abnormal Lab Results - Last 24 Hours (Table) 09/27/24 09/27/24 09/28/24 Range/Units 17:04 20:13 06:13 WBC (3.8-10.6) k/uL Sodium (137-145) mmol/L Creatinine (0.66-1.25) mg/dL Glucose (74-99) mg/dL POC Glucose (mg/dL) 182 H 232 H 186 H (70-110) mg/dL Total Protein (6.3-8.2) g/dL Albumin (3.5-5.0) g/dL 09/28/24 09/28/24 09/28/24 Range/Units 09:09 11:36 13:00 WBC 15.2 H (3.8-10.6) k/uL Sodium 132 L (137-145) mmol/L Creatinine 0.65 L (0.66-1.25) mg/dL Glucose 185 H (74-99) mg/dL POC Glucose (mg/dL) 263 H (70-110) mg/dL Total Protein 5.3 L (6.3-8.2) g/dL Albumin 2.5 L (3.5-5.0) g/dL Microbiology - Last 24 Hours (Table) 09/26/24 19:24 Nasal Screen MRSA/MSSA - Final Nasal Swab 09/26/24 11:14 Blood Culture - Preliminary Blood Assessment and Plan (1) Leukocytosis Current Visit: Yes Status: Acute Code(s): D72.829 - ELEVATED WHITE BLOOD CELL COUNT, UNSPECIFIED SNOMED Code(s): 673261495 (2) Pneumonia Current Visit: Yes Status: Acute Code(s): J18.9 - PNEUMONIA, UNSPECIFIED ORGANISM SNOMED Code(s): 297132236 Plan: 1patient presenting to the hospital for evaluation of increasing shortness of breath in this patient who did have evidence of bilateral effusion and basilar atelectasis more on the left side patient did have elevated white count apparently he did have elevated procalcitonin at the [facility], [facility] for possible pneumonia question of community-acquired versus gram-negative less likely MRSA 2-try to obtain sputum for Gram stain culture and MRSA nasal screen 3patient did have chest ultrasound concerning for 8 cm loculated left effusion IR has been consulted for drainage of this fluid which will be sent for culture 3-patient did have improvement in the fever pattern, to continue with Tessy walton watching his clinical course closely Dictation was produced using [employer] dictation software. please excuse any grammatical, word or spelling errors. Time with Patient: Less than 30
--- NOTE | 2024-09-29 14:38 | P.PN ---
Subjective Progress Note Date: 09/29/24 Principal diagnosis: Reason for follow-up is leukocytosis and pneumonia Patient is a 59-year-old male with a past medical history significant for Schizophrenia resident of adult foster care was sent to the [facility] concerning for increasing shortness of breath with subsequent worsening of his symptoms with the patient has been transferred to [facility] concerning for pneumonia. On today's evaluation that is 09/29/2024, Patient did spike a fever of 102.7 F last evening, the patient is afebrile this morning patient is currently on high flow nasal oxygen and denies having any worsening shortness of breath or cough the patient denies any nausea vomiting did not have any abdominal pain and no diarrhea. Patient did not have any CBC or BMP he did tested positive for COVID-19 CT of the brain last night no acute process Objective - Vital Signs Vital signs: Vital Signs Temp 97.4 F L 09/29/24 11:27 Pulse 59 L 09/29/24 12:27 Resp 22 09/29/24 11:27 BP 122/68 09/29/24 11:27 Pulse Ox 95 09/29/24 12:18 FiO2 50 09/29/24 12:18 Intake & Output 09/28/24 09/29/24 09/29/24 18:59 06:59 18:59 Intake Total 240 1080 600 Output Total 1525 Balance -1285 1080 600 Weight 77.5 kg Intake: Intake, IV Titration 400 Amount Piperacillin-Tazobactam 3 100 .375 gm In Sodium Chloride 0.9% 100 ml @ 25 mls/hr IVPB Q8H [facility] Rx#: [id number] Sodium Chloride 0.9% 1, 300 000 ml @ 75 mls/hr IV . [id number] [facility] Rx#:[id number] Oral 240 1080 200 Output: Urine 1525 Other: Voiding Method External Catheter External Catheter External Catheter # Bowel Movements 1 - Exam GENERAL DESCRIPTION: Middle-age male lying in bed in no distress RESPIRATORY SYSTEM: Unlabored breathing , decreased breath sounds at bases HEART: S1 S2 regular rate and rhythm , ABDOMEN: Soft , no tenderness EXTREMITIES: No edema feet - Labs CBC & Chem 7: 09/28/24 13:00 09/28/24 09:09 Labs: Abnormal Lab Results - Last 24 Hours (Table) 09/28/24 09/28/24 09/28/24 Range/Units 13:00 16:21 19:56 WBC 15.2 H (3.8-10.6) k/uL Neutrophils # (Manual) 10.70 H (1.3-7.7) k/uL Monocytes # (Manual) 2.74 H (0-1.0) k/uL Metamyelocytes # (Man) 0.46 H (0) k/uL Myelocytes # (Manual) 0.15 H (0) k/uL POC Glucose (mg/dL) 143 H 197 H (70-110) mg/dL SARS-CoV-2 (PCR) (Not Detectd) 09/29/24 09/29/24 09/29/24 Range/Units 01:48 03:58 06:07 WBC (3.8-10.6) k/uL Neutrophils # (Manual) (1.3-7.7) k/uL Monocytes # (Manual) (0-1.0) k/uL Metamyelocytes # (Man) (0) k/uL Myelocytes # (Manual) (0) k/uL POC Glucose (mg/dL) 221 H 208 H (70-110) mg/dL SARS-CoV-2 (PCR) Detected A (Not Detectd) 09/29/24 Range/Units 11:41 WBC (3.8-10.6) k/uL Neutrophils # (Manual) (1.3-7.7) k/uL Monocytes # (Manual) (0-1.0) k/uL Metamyelocytes # (Man) (0) k/uL Myelocytes # (Manual) (0) k/uL POC Glucose (mg/dL) 223 H (70-110) mg/dL SARS-CoV-2 (PCR) (Not Detectd) Microbiology - Last 24 Hours (Table) 09/26/24 11:14 Blood Culture - Preliminary Blood 09/26/24 19:24 Nasal Screen MRSA/MSSA - Final Nasal Swab Assessment and Plan (1) Leukocytosis Current Visit: Yes Status: Acute Code(s): D72.829 - ELEVATED WHITE BLOOD CELL COUNT, UNSPECIFIED SNOMED Code(s): 722509061 (2) Pneumonia Current Visit: Yes Status: Acute Code(s): J18.9 - PNEUMONIA, UNSPECIFIED ORGANISM SNOMED Code(s): 753734194 Plan: 1patient presenting to the hospital for evaluation of increasing shortness of breath in this patient who did have evidence of bilateral effusion and basilar atelectasis more on the left side patient did have elevated white count appa rently he did have elevated procalcitonin at the [facility], concerning for possible pneumonia question of community-acquired versus gram-negative less likely MRSA 2- MRSA nasal screen has been negative blood cultures are pending sputum not collected 3patient did have chest ultrasound concerning for 8 cm loculated left effusion IR has been consulted for drainage of this fluid which will be sent for culture 3-patient did tested positive for COVID-19 clinical doubt acute COVID-19 infection at this point and more dealing with a bacterial pneumonia with empyema continue with the Zosyn Dictation was produced using [employer] dictation software. please excuse any grammatical, word or spelling errors. Time with Patient: Less than 30
--- NOTE | 2024-09-29 14:59 | P.PN ---
Subjective Progress Note Date: 09/22/24 Principal diagnosis: Acute hypoxic respiratory failure secondary to pneumonia and bilateral pleural effusions, possible underlying diastolic congestive heart failure. This is a 59-year-old male patient with a known history of schizophrenia and resides in a adult foster care setting who had been brought into [facility] with increasing shortness of breath on September 22, 2024. He was requiring Airvo high flow oxygen and not showing much improvement and was transferred here direct admit to the selective care unit today. Chest x-ray here reveals bilateral pleural effusion and basilar infiltrates left greater than right. Correlate for underlying CHF. Possible pneumonia. Large lobulated density in the left lobe. He is currently sitting up in a chair. Awake and alert. Somewhat uncooperative. A industrial safety and health specialist is at the bedside. Continuously taking off his Airvo high flow oxygen device. This is currently set at 50 L and 80% FiO2. Procalcitonin at [place] was 2.40. He has been initiated on DuoNeb and elations, vancomycin and Zosyn. Ativan as needed. White count 14.9. Hemoglobin 13.9. Platelets 146. Sodium 136. Potassium 3.6. Bicarb 29. BUN 25. Creatinine 0.71. Glucose 157. He currently denies any worsening shortness of breath, cough or congestion. He is not clear as to why he was admitted. No family at the bedside. patient was seen today on 09/27/2024, patient remains at hypoxic, remains on Airvo at 50% FiO2 and 50 L flow patient is basically about the same seems to be more comfortable, he had a industrial safety and health specialist at bedside. As at times he seems to be quite agitated and restless. Ultrasound of the chest was reviewed, may have some debris in the pleural effusion, and there is also lung tissue, hence am not planning thoracentesis at this point. My recommendation to continue antibiotics and diuretics, and continue to monitor, we will decide whether the patient could benefit from thoracentesis or a pigtail catheter placement.WBC count is 15.8 hemoglobin 13.2 basic metabolic profile is normal renal profile is normalLegione lla antigen is negative. Procalcitonin at [place] was +2.40 Patient was seen today on 09/28/2024, basically the patient is about the same, remains on Airvo, 50% FiO2 and 50% liters flow, mental status is basically about the same, patient is encephalopathic, reviewed the ultrasound of the chest, p blanka seems to have loculated pleural effusion and I am recommending a pigtail catheter placement next week by interventional radiology in the meantime continue antibiotics. Continues to have leukocytosis, continues to have relatively normal electrolytes. Patient had elevated procalcitonin level on admission Patient was seen today on 09/29/2024, patient is basically about the same, remains on Airvo, he has a industrial safety and health specialist at bedside, patient does not seem to verbalize much, remains encephalopathic. I have recommended pigtail catheter placement for his complicated or loculated pleural effusion, this will be done by interventional radiology hopefully tomorrow. In the meantime patient is receiving antibiotics for his pneumonia and parapneumonic effusion. Objective - Vital Signs Vital signs: Vital Signs Temp 97.4 F L 09/29/24 11:27 Pulse 52 L 09/29/24 14:00 Resp 22 09/29/24 14:00 BP 122/68 09/29/24 11:27 Pulse Ox 95 09/29/24 12:18 FiO2 50 09/29/24 12:18 Intake & Output 09/28/24 09/29/24 09/29/24 18:59 06:59 18:59 Intake Total 240 1080 600 Output Total 1525 Balance -1285 1080 600 Weight 77.5 kg Intake: Intake, IV Titration 400 Amount Piperacillin-Tazobactam 3 100 .375 gm In Sodium Chloride 0.9% 100 ml @ 25 mls/hr IVPB Q8H [facility] Rx#: [id number] Sodium Chloride 0.9% 1, 300 000 ml @ 75 mls/hr IV . [id number] [facility] Rx#:[id number] Oral 240 1080 200 Output: Urine 1525 Other: Voiding Method External Catheter External Catheter External Catheter # Bowel Movements 1 - Exam GENERAL EXAM: [age]-year-old white male, on Airvo, 50% FiO2 and 50 L flow with O2 sat of 95% HEAD: Normocephalic. EYES: Normal reaction of pupils, equal size. NOSE: Clear with pink turbinates. THROAT: No erythema or exudates. NECK: No masses, no JVD. CHEST: No chest wall deformity. LUNGS: Equal air entry with bilateral scattered rhonchi, crackles in the bases, left greater than right. CVS: S1 and S2 normal with no audible murmur, regular rhythm. ABDOMEN: No hepatosplenomegaly, normal bowel sounds, no guarding or rigidity. SKIN: No rashes CENTRAL NERVOUS SYSTEM: Encephalopathic, nonverbal EXTREMITIES: no clubbing edema or cyanosis - Labs CBC & Chem 7: 09/28/24 13:00 09/28/24 09:09 Labs: Abnormal Lab Results - Last 24 Hours (Table) 09/28/24 09/28/24 09/29/24 Range/Units 16:21 19:56 01:48 POC Glucose (mg/dL) 143 H 197 H (70-110) mg/dL SARS-CoV-2 (PCR) Detected A (Not Detectd) 09/29/24 09/29/24 09/29/24 Range/Units 03:58 06:07 11:41 POC Glucose (mg/dL) 221 H 208 H 223 H (70-110) mg/dL SARS-CoV-2 (PCR) (Not Detectd) Microbiology - Last 24 Hours (Table) 09/26/24 11:14 Blood Culture - Preliminary Blood Assessment and Plan Assessment: Impression: Acute hypoxemic respiratory failure secondary to suspected bilateral pneumonia, bilateral pleural effusion, possible underlying diastolic congestive heart failure. Procalcitonin 2.40 at [place]. Echocardiogram revealed an ejection fraction of 60 to 65% Leukocytosis secondary to above Atrial fibrillation with a rapid ventricular response Schizoaffective disorder History of bipolar disorder with anxiety/depression Diabetes mellitus, type II History of mild intermittent chronic bronchial asthma History of CVA Hypertension Gastroesophageal reflux disease AFC resident Recommendation: Continue antibiotics patient is on Zosyn Continue updrafts Continue oxygen and titrate accordingly Continue treatment for his atrial fibrillation as per cardiology, patient is on metoprolol twice daily Requested pigtail catheter placement by interventional radiology for his loculated pleural effusion hopefully this could be done tomorrow continue bronchodilators Will continue to follow Time with Patient: Less than 30
[2024-09-29 16:45] LABS: Glucose,Whole Blood 206 mg/dL (70-110)
[2024-09-29] MEDS ORDERED: ALBUTEROL HFA INHALER INHALATION PRN (19:30)
[2024-09-29 20:21] LABS: Glucose,Whole Blood 141 mg/dL (70-110)
[2024-09-29] MEDS: ALBUTEROL HFA INHALER INHALATION SCH (21:08)
[2024-09-30 06:27] LABS: Glucose,Whole Blood 219 mg/dL (70-110)
[2024-09-30 09:18] LABS: HCT 37.2 % (39.0-53.0); HGB 12.5 gm/dL (13.0-17.5); MCHC 33.6 g/dL (31.0-37.0); MCV 95.2 fL (80.0-100.0); Mean Platelet Volume 7.3; Platelet Count 190 k/uL (150-450); RDW 12.9 % (11.5-15.5); WBC 13.3 k/uL (3.8-10.6)
[2024-09-30] MEDS: TIOTROPIUM 2.5 MCG INHALER INHALATION SCH (09:27)
[2024-09-30 09:31] LABS: ALT 15 U/L (4-49); AST 25 U/L (17-59); African American GFR (CKD) >90 (>60 ml/min/1.73 sqM); Albumin 2.4 g/dL (3.5-5.0); Alkaline Phosphatase 73 U/L (38-126); Anion Gap 8 mmol/L; Blood Urea Nitrogen 21 mg/dL (9-20); Calcium 7.9 mg/dL (8.4-10.2); Carbon Dioxide 27 mmol/L (22-30); Chloride 97 mmol/L (98-107); Glucose 173 mg/dL (74-99); Non-African American GFR(CKD) >90 (>60 ml/min/1.73 sqM); Potassium 3.5 mmol/L (3.5-5.1); Sodium 132 mmol/L (137-145); Total Bilirubin 0.3 mg/dL (0.2-1.3); Total Protein 5.2 g/dL (6.3-8.2)
[2024-09-30 09:54] LABS: INR 1.1 (<1.2); Prothrombin Time 12.3 sec (10.0-12.5)
[2024-09-30 10:05] LABS: Band Neutrophils % 4 %; Metamyelocytes # (M) 0.13 k/uL (0); Metamyelocytes % 1 %; Monocytes # (M) 1.73 k/uL (0-1.0); Neutrophils % (M) 70 %; Nucleated Red Blood Cells 0 /100 WBC (0-0); Total Cells Counted 100
[2024-09-30 11:20] LABS: Glucose,Whole Blood 214 mg/dL (70-110)
--- NOTE | 2024-09-30 13:46 | P.PN ---
Subjective Progress Note Date: 09/30/24 patient is a 59-year-old gentleman with past medical history significant for schizophrenia who is a resident of a adult foster care was transferred to [facility] from [facility] for worsening respiratory status. Patient initially presented to [facility] for shortness of breath and c hest pain for 4 to 5 days. According to medical records, patient was complaining of shortness of breath on exertion and chest pain that was pleuritic in nature worsened by taking deep breaths. Patient was also complaining of lethargy and weakness. There is no complaint of cough. There was no complaint of fever or chills. Patient was worked up in [facility], initial CT chest done showed bilateral lower lobe consolidation greater on the left suspicious for pneumonia. Patient was admitted there and was started on IV antibiotics. Patient also had 2D echo done that showed normal LV systolic function with LVEF of 66 65%, there was some diastolic dysfunction present. No valvular pathology seen. While at [facility], patient respiratory status worsened, patient was requiring heated high flow. Because of respiratory status, transfer was requested and patient was transferred to [facility] Patient admitted to internal medicine service 09/27. Patient seen and examined. Patient is doing better compared to yesterday, patient did not answer many of my questions. 09/28. Patient seen and examined. Patient continues to be on Airvo. 09/29. Patient seen examined. Patient was agitated overnight and received Ativan. Continues to require heated high flow. 09/30. Patient seen and examined. Patient is not the best historian, not willing to answer any question. Patient being scheduled for IR guided pigtail catheter placement REVIEW OF SYSTEMS: Review of system cannot be obtained as patient was agitated and received Ativan PHYSICAL EXAMINATION: GENERAL: The patient is lethargic t, ill looking HEENT: Pupils are round and equally reacting to light. EOMI. No scleral icterus. No conjunctival pallor. Normocephalic, atraumatic. No pharyngeal erythema. No t hyromegaly. CARDIOVASCULAR: S1 and S2 present. No murmurs, rubs, or gallops. PULMONARY: Coarse breath sound bilaterally, bilateral crackles audible, diminished breath sounds at bases ABDOMEN: Soft, nontender, nondistended, normoactive bowel sounds. No palpable organomegaly. MUSCULOSKELETAL: No joint swelling or deformity. EXTREMITIES: No cyanosis, clubbing, or pedal edema. NEUROLOGICAL: Gross neurological examination did not reveal any focal deficits. SKIN: No rashes. Assessment and plan Acute hypoxemic respiratory failure Bilateral pleural effusions Bacterial pneumonia Paroxysmal A-fib with RVR ruled out Sinus tachycardia Leukocytosis secondary to above Schizoaffective disorder History of bipolar disorder with anxiety/depression Diabetes mellitus, type II History of CVA Hypertension Gastroesophageal reflux disease Monitor vital signs Monitor CBC Monitor CMP Continue ox supplementation aggressive bronchopulmonary hygiene Follow-up on blood cultures Continue breathing treatments Continue IV Zosyn Continue Lopressor and Cardizem Pulmonology following, consulted IR for pigtail catheter placement for his loculated pleural effusion, scheduled for today. ID following Cardiology evaluated, recommend beta-blockers, no need for repeating 2D echo Labs and medication were reviewed.. Continue same treatment. Continue with symptomatic treatment. Resume home medication. Monitor labs and vitals. DVT and GI prophylaxis. Further recommendations as per clinical course of the patient Dictation was produced using [employer] dictation software. please excuse any grammatical, word or spelling errors. Objective - Vital Signs Vital signs: Vital Signs Temp 99.1 F 09/30/24 12:50 Pulse 57 L 09/30/24 12:50 Resp 26 H 09/30/24 12:50 BP 116/62 09/30/24 12:50 Pulse Ox 97 09/30/24 12:50 FiO2 50 09/30/24 12:34 Intake & Output 09/29/24 09/30/24 09/30/24 18:59 06:59 18:59 Intake Total 1100 180 Output Total 1090 400 Balance 1100 -1090 -220 Intake: Intake, IV Titration 900 Amount Piperacillin-Tazobactam 3 300 .375 gm In Sodium Chloride 0.9% 100 ml @ 25 mls/hr IVPB Q8H [facility] Rx#: [id number] Sodium Chloride 0.9% 1, 600 000 ml @ 75 mls/hr IV . [id number] [facility] Rx#:[id number] Oral 200 180 Output: Urine 1090 400 Other: Voiding Method External Catheter External Catheter External Catheter # Voids 1 - Labs CBC & Chem 7: 09/30/24 08:30 09/30/24 08:30 Labs: Abnormal Lab Results - Last 24 Hours (Table) 12/09/29/24 09/30/24 Range/Units 16:44 20:18 06:26 WBC (3.8-10.6) k/uL RBC (4.30-5.90) m/uL Hgb (13.0-17.5) gm/dL Hct (39.0-53.0) % Neutrophils # (Manual) (1.3-7.7) k/uL Monocytes # (Manual) (0-1.0) k/uL Metamyelocytes # (Man) (0) k/uL Sodium (137-145) mmol/L Chloride (98-107) mmol/L BUN (9-20) mg/dL Glucose (74-99) mg/dL POC Glucose (mg/dL) 206 H 141 H 219 H (70-110) mg/dL Calcium (8.4-10.2) mg/dL Total Protein (6.3-8.2) g/dL Albumin (3.5-5.0) g/dL 09/30/24 09/30/24 09/30/24 Range/Units 08:30 08:30 11:19 WBC 13.3 H (3.8-10.6) k/uL RBC 3.90 L (4.30-5.90) m/uL Hgb 12.5 L (13.0-17.5) gm/dL Hct 37.2 L (39.0-53.0) % Neutrophils # (Manual) 9.80 H (1.3-7.7) k/uL Monocytes # (Manual) 1.73 H (0-1.0) k/uL Metamyelocytes # (Man) 0.13 H (0) k/uL Sodium 132 L (137-145) mmol/L Chloride 97 L (98-107) mmol/L BUN 21 H (9-20) mg/dL Glucose 173 H (74-99) mg/dL POC Glucose (mg/dL) 214 H (70-110) mg/dL Calcium 7.9 L (8.4-10.2) mg/dL Total Protein 5.2 L (6.3-8.2) g/dL Albumin 2.4 L (3.5-5.0) g/dL Microbiology - Last 24 Hours (Table) 09/28/24 21:28 Blood Culture - Preliminary Blood 09/28/24 21:11 Blood Culture - Preliminary Blood 09/26/24 11:14 Blood Culture - Preliminary Blood
--- NOTE | 2024-09-30 15:59 | P.PN ---
Subjective Progress Note Date: 09/30/24 This is a 59-year-old male patient with a known history of schizophrenia and resides in a adult foster care setting who had been brought into [facility] with increasing shortness of breath on September 22, 2024. He was requiring Airvo high flow oxygen and not showing much improvement and was transf erred here direct admit to the selective care unit today. Chest x-ray here reveals bilateral pleural effusion and basilar infiltrates left greater than right. Correlate for underlying CHF. Possible pneumonia. Large lobulated density in the left lobe. He is currently sitting up in a chair. Awake and alert. Somewhat uncooperative. A safety engineer pressure vessels is at the bedside. Continuously taking off his Airvo high flow oxygen device. This is currently set at 50 L and 80% FiO2. Procalcitonin at [place] was 2.40. He has been initiated on DuoNeb and elations, vancomycin and Zosyn. Ativan as needed. White count 14.9. Hemoglobin 13.9. Platelets 146. Sodium 136. Potassium 3.6. Bicarb 29. BUN 25. Creatinine 0.71. Glucose 157. He currently denies any worsening shortness of breath, cough or congestion. He is not clear as to why he was admitted. No family at the bedside. patient was seen today on 09/27/2024, patient remains at hypoxic, remains on Airvo at 50% FiO2 and 50 L flow patient is basically about the same seems to be more comfortable, he had a safety engineer pressure vessels at bedside. As at times he seems to be quite agitated and restless. Ultrasound of the chest was reviewed, may have some debris in the pleural effusion, and there is also lung tissue, hence am not planning thoracentesis at this point. My recommendation to continue antibiotics and diuretics, and continue to monitor, we will decide whether the patient could benefit from thoracentesis or a pigtail catheter placement.WBC count is 15.8 hemoglobin 13.2 basic metabolic profile is normal renal profile is normalLe gionella antigen is negative. Procalcitonin at [place] was +2.40 Patient was seen today on 09/28/2024, basically the patient is about the same, remains on Airvo, 50% FiO2 and 50% liters flow, mental status is basically about the same, patient is encephalopathic, reviewed the ultrasound of the chest, patient seems to have loculated pleural effusion and I am recommending a pigtail catheter placement next week by interventional radiology in the meantime continue antibiotics. Continues to have leukocytosis, continues to have relatively normal electrolytes. Patient had elevated procalcitonin level on admission Patient was seen today on 09/29/2024, patient is basically about the same, remains on Airvo, he has a safety engineer pressure vessels at bedside, patient does not seem to verbalize much, remains encephalopathic. I have recommended pigtail catheter placement for his complicated or loculated pleural effusion, this will be done by interventional radiology hopefully tomorrow. In the meantime patient is receiving antibiotics for his pneumonia and parapneumonic effusion. The patient is seen today September 30, 2024 in follow-up on the selective care unit. He is currently resting in bed. Awake and alert. marketing instructor remains at the bedside. He is continued on Airvo high flow oxygen at 45 L and 50% FiO2. Blood cultures revealing no growth thus far. White count 13.3. Hemoglobin 12.5. Platelets 190. Sodium 132. Potassium 3.5. Bicarb 27. BUN 21. Creatinine 0.73. Glucose 173. He is continued on Zosyn. Remains on bronchodilators. Plan is for pigtail catheter placement today for the left- sided loculated pleural effusion. Objective - Vital Signs Vital signs: Vital Signs Temp 99.1 F 09/30/24 12:50 Pulse 75 09/30/24 15:22 Resp 24 09/30/24 15:22 BP 129/69 09/30/24 15:22 Pulse Ox 92 L 09/30/24 15:22 FiO2 50 09/30/24 12:34 Intake & Output 09/29/24 09/30/24 09/30/24 18:59 06:59 18:59 Intake Total 1100 180 Output Total 1090 400 Balance 1100 -1090 -220 Intake: Intake, IV Titration 900 Amount Piperacillin-Tazobactam 3 300 .375 gm In Sodium Chloride 0.9% 100 ml @ 25 mls/hr IVPB Q8H [facility] Rx#: [id number] Sodium Chloride 0.9% 1, 600 000 ml @ 75 mls/hr IV . [id number] [facility] Rx#:[id number] Oral 200 180 Output: Urine 1090 400 Other: Voiding Method External Catheter External Catheter External Catheter # Voids 1 - Exam GENERAL EXAM: Alert, confused 59-year-old male, on Airvo high flow oxygen at 45 L and 50% FiO2, in no apparent distress. HEAD: Normocephalic. EYES: Normal reaction of pupils, equal size. NOSE: Clear with pink turbinates. THROAT: No erythema or exudates. NECK: No masses, no JVD. CHEST: No chest wall deformity. LUNGS: Equal air entry with bilateral scattered rhonchi. CVS: S1 and S2 normal with no audible murmur, regular rhythm. ABDOMEN: No hepatosplenomegaly, normal bowel sounds, no guarding or rigidity. SPINE: No scoliosis or deformity SKIN: No rashes CENTRAL NERVOUS SYSTEM: No focal deficits, tone is normal in all 4 extremities. EXTREMITIES: There is no peripheral edema. No clubbing, no cyanosis. Perip heral pulses are intact. - Labs CBC & Chem 7: 09/30/24 08:30 09/30/24 08:30 Labs: Abnormal Lab Results - Last 24 Hours (Table) 09/29/24 09/29/24 09/30/24 Range/Units 16:44 20:18 06:26 WBC (3.8-10.6) k/uL RBC (4.30-5.90) m/uL Hgb (13.0-17.5) gm/dL Hct (39.0-53.0) % Neutrophils # (Manual) (1.3-7.7) k/uL Monocytes # (Manual) (0-1.0) k/uL Metamyelocytes # (Man) (0) k/uL Sodium (137-145) mmol/L Chloride (98-107) mmol/L BUN (9-20) mg/dL Glucose (74-99) mg/dL POC Glucose (mg/dL) 206 H 141 H 219 H (70-110) mg/dL Calcium (8.4-10.2) mg/dL Total Protein (6.3-8.2) g/dL Albumin (3.5-5.0) g/dL 09/30/24 09/30/24 09/30/24 Range/Units 08:30 08:30 11:19 WBC 13.3 H (3.8-10.6) k/uL RBC 3.90 L (4.30-5.90) m/uL Hgb 12.5 L (13.0-17.5) gm/dL Hct 37.2 L (39.0-53.0) % Neutrophils # (Manual) 9.80 H (1.3-7.7) k/uL Monocytes # (Manual) 1.73 H (0-1.0) k/uL Metamyelocytes # (Man) 0.13 H (0) k/uL Sodium 132 L (137-145) mmol/L Chloride 97 L (98-107) mmol/L BUN 21 H (9-20) mg/dL Glucose 173 H (74-99) mg/dL POC Glucose (mg/dL) 214 H (70-110) mg/dL Calcium 7.9 L (8.4-10.2) mg/dL Total Protein 5.2 L (6.3-8.2) g/dL Albumin 2.4 L (3.5-5.0) g/dL Microbiology - Last 24 Hours (Table) 09/28/24 21:28 Blood Culture - Preliminary Blood 09/28/24 21:11 Blood Culture - Preliminary Blood 09/26/24 11:14 Blood Culture - Preliminary Blood Assessment and Plan Assessment: Acute hypoxemic respiratory failure secondary to suspected bilateral pneumonia, bilateral pleural effusion, possible underlying diastolic congestive heart failure. Procalcitonin 2.40 at [place]. Echocardiogram revealed an ejection fraction of 60 to 65% Loculated left-sided pleural effusion, plan is for pigtail catheter placement Leukocytosis secondary to above Atrial fibrillation with a rapid ventricular response Schizoaffective disorder History of bipolar disorder with anxiety/depression Diabetes mellitus, type II History of mild intermittent chronic bronchial asthma History of CVA Hypertension Gastroesophageal reflux disease AF resident Plan: The patient was seen and evaluated Labs and medications reviewed Pigtail catheter insertion into the left chest today Continue Zosyn Continue bronchodilators Titrate down the FiO2 as tolerated We will continue to follow I have personally seen and examined the patient, performed the documentation and the assessment and plan as written. Number of minutes spent on the visit: 10 Dictation was produced using [employer] dictation software. Please excuse any grammatical, word or spelling errors.
[2024-09-30 16:20] LABS: Glucose,Whole Blood 154 mg/dL (70-110)
--- NOTE | 2024-09-30 16:32 | US ---
EXAMINATION TYPE: US guided chest tube insertion DATE OF EXAM: 09/30/2024 3:38 PM COMPARISON: 09/27/2024 CLINICAL INDICATION: Male, 59 years old with history of COVID and pleural effusion. Shortness of linda th. RADIOLOGIST: Dr. Johnathon Mccain PROCEDURE: Ultrasound along the left lower posterior chest wall was used identify the complex pleural fluid. The procedure, along with risks and complications were discussed with the patient and guardian. A consent was signed by the patient's guardian and placed in patient's sapphire t. Maximum sterile technique was utilized. The site was marked. Timeout was performed by myself. The left posterior lower chest wall was sterilely prepped and draped in the usual fashion. 10 mL of 1% Lidocaine was utilized to anesthetize the superficial and deep soft tissues under direct ultrasound guidance. Following that, a skin chad was and through that skin chad, an 8.5 Jamaican catheter system was advance d into the fluid collection under direct ultrasound guidance. The pigtail loop was formed and secured as the stylette/introducer was removed. Initial aspiration of 30 mL of serosanguineous fluid which w as sent for laboratory analysis. The catheter was subsequently connected to a drainage bag and secured with a StayFix device. Patient tolerated the procedure well and was sent back to inpatient room. IMPRESSION: Satisfactory placement of an 8.5 Jamaican pigtail drainage catheter into the patient's complex left ple ural effusion via ultrasound guidance. [facility], , 09/30/2024 4:29 PM
[2024-09-30 18:03] LABS: ABG HCO3 29 mmol/L (21-25); ABG Oxygen Saturation 92.1 % (94-97); ABG PCO2 38 mmHg (35-45); ABG PH 7.49 (7.35-7.45); ABG TCO2 30 mmol/L (19-24); Allen Test Performed? Yes
[2024-09-30 18:05] LABS: ABG PO2 57 mmHg (83-108)
[2024-09-30 20:14] LABS: Glucose,Whole Blood 170 mg/dL (70-110)
[2024-10-01 03:17] LABS: Amylase, Fluid Source Pleural Fluid; Amylase,Body Fluid 15 U/L; Glucose, BF Source Pleural Fluid; Glucose, Body Fluid 140 mg/dL; T. Protein, Body Fluid Source Pleural Fluid; Total Protein, Body Fluid >3600 mg/dL
[2024-10-01 03:29] LABS: LDH, Body Fluid Source Pleural Fluid
[2024-10-01 04:11] LABS: Appearance,BF Cloudy (Clear)
[2024-10-01] MEDS: MORPHINE SULFATE 2 MG/ML SYRINGE IVP PRN (05:00)
[2024-10-01 06:22] LABS: Glucose,Whole Blood 277 mg/dL (70-110)
[2024-10-01 08:29] LABS: HCT 38.7 % (39.0-53.0); HGB 12.6 gm/dL (13.0-17.5); Hypochromasia Slight; MCH 31.9 pg (25.0-35.0); MCHC 32.7 g/dL (31.0-37.0); MCV 97.6 fL (80.0-100.0); Mean Platelet Volume 7.6; Platelet Count 173 k/uL (150-450); RBC 3.97 m/uL (4.30-5.90); WBC 10.4 k/uL (3.8-10.6)
[2024-10-01 08:44] LABS: African American GFR (CKD) >90 (>60 ml/min/1.73 sqM); Anion Gap 6 mmol/L; Blood Urea Nitrogen 18 mg/dL (9-20); Calcium 7.6 mg/dL (8.4-10.2); Carbon Dioxide 28 mmol/L (22-30); Chloride 97 mmol/L (98-107); Glucose 277 mg/dL (74-99); Non-African American GFR(CKD) >90 (>60 ml/min/1.73 sqM); Potassium 3.4 mmol/L (3.5-5.1); Sodium 131 mmol/L (137-145)
[2024-10-01 11:25] LABS: Glucose,Whole Blood 245 mg/dL (70-110)
[2024-10-01] MEDS ORDERED: Potassium Replacement Protocol 1 EACH MISC MISCELLANE PRN (14:42)
--- NOTE | 2024-10-01 15:00 | P.PN ---
Subjective Progress Note Date: 10/01/24 patient is a 59-year-old gentleman with past medical history significant for schizophrenia who is a resident of a adult foster care was transferred to [facility] from [facility] for worsening respiratory status. Patient initially presented to [facility] for shortness of breath and c hest pain for 4 to 5 days. According to medical records, patient was complaining of shortness of breath on exertion and chest pain that was pleuritic in nature worsened by taking deep breaths. Patient was also complaining of lethargy and weakness. There is no complaint of cough. There was no complaint of fever or chills. Patient was worked up in [facility], initial CT chest done showed bilateral lower lobe consolidation greater on the left suspicious for pneumonia. Patient was admitted there and was started on IV antibiotics. Patient also had 2D echo done that showed normal LV systolic function with LVEF of 66 65%, there was some diastolic dysfunction present. No valvular pathology seen. While at [facility], patient respiratory status worsened, patient was requiring heated high flow. Because of respiratory status, transfer was requested and patient was transferred to [facility] Patient admitted to internal medicine service 09/27. Patient seen and examined. Patient is doing better compared to yesterday, patient did not answer many of my questions. 09/28. Patient seen and examined. Patient continues to be on Airvo. 09/29. Patient seen examined. Patient was agitated overnight and received Ativan. Continues to require heated high flow. 09/30. Patient seen and examined. Patient is not the best historian, not willing to answer any question. Patient being scheduled for IR guided pigtail catheter placement 10/01. Patient seen and examined. vital signs stable. Patient had IR guided pigtail catheter placement on left side. Patient lethargic, complaining of pain at the catheter site REVIEW OF SYSTEMS: Review of system cannot be obtained as patient was agitated and received Ativan PHYSICAL EXAMINATION: GENERAL: The patient is lethargic t, ill looking HEENT: Pupils are round and equally reacting to light. EOMI. No scleral icterus. No conjunctival pallor. Normocephalic, atraumatic. No pharyngeal erythema. No thyromegaly. CARDIOVASCULAR: S1 and S2 present. No murmurs, rubs, or gallops. PULMONARY: Coarse breath sound bilaterally,, left-sided pigtail catheter seen ABDOMEN: Soft, nontender, nondistended, normoactive bowel sounds. No palpable organomegaly. MUSCULOSKELETAL: No joint swelling or deformity. EXTREMITIES: No cyanosis, clubbing, or pedal edema. NEUROLOGICAL: Gross neurological examination did not reveal any focal deficits. SKIN: No rashes. Assessment and plan Acute hypoxemic respiratory failure Bilateral pleural effusions Bacterial pneumonia Paroxysmal A-fib with RVR ruled out Sinus tachycardia Leukocytosis secondary to above Schizoaffective disorder History of bipolar disorder with anxiety/depression Diabetes mellitus, type II History of CVA Hypertension Gastroesophageal reflux disease Monitor vital signs Monitor CBC Monitor CMP Continue ox supplementation aggressive bronchopulmonary hygiene Follow-up on blood cultures Status post IR guided pigtail catheter placement on left side Continue breathing treatments Continue IV Zosyn Continue Lopressor and Cardizem Pulmonology following, ID following Cardiology evaluated, recommend beta-blockers, no need for repeating 2D echo Labs and medication were reviewed.. Continue same treatment. Continue with symptomatic treatment. Resume home medication. Monitor labs and vitals. DVT and GI prophylaxis. Further recommendations as per clinical course of the patient Dictation was produced using [employer] dictation software. please excuse any g rammatical, word or spelling errors. Objective - Vital Signs Vital signs: Vital Signs Temp 99.6 F 10/01/24 03:15 Pulse 66 10/01/24 03:15 Resp 18 10/01/24 03:15 BP 153/80 10/01/24 03:15 Pulse Ox 97 10/01/24 03:15 FiO2 90 10/01/24 08:43 Intake & Output 09/30/24 10/01/24 10/01/24 18:59 06:59 18:59 Intake Total 180 Output Total 739 15 Balance -559 -15 Weight 73.5 kg Intake: Oral 180 Output: Chest Tube Drainage 39 15 Chest Tube Left 39 15 Urine 700 Other: Voiding Method External Catheter Diaper # Voids 1 1 # Bowel Movements 0 - Labs CBC & Chem 7: 10/01/24 07:41 10/01/24 07:41 Labs: Abnormal Lab Results - Last 24 Hours (Table) 09/30/24 09/30/24 09/30/24 Range/Units 11:19 15:40 16:16 RBC (4.30-5.90) m/uL Hgb (13.0-17.5) gm/dL Hct (39.0-53.0) % ABG pH (7.35-7.45) ABG pO2 (83-108) mmHg ABG HCO3 (21-25) mmol/L ABG Total CO2 (19-24) mmol/L ABG O2 Saturation (94-97) % Sodium (137-145) mmol/L Potassium (3.5-5.1) mmol/L Chloride (98-107) mmol/L Creatinine (0.66-1.25) mg/dL Glucose (74-99) mg/dL POC Glucose (mg/dL) 214 H 154 H (70-110) mg/dL Calcium (8.4-10.2) mg/dL Fluid Appearance Cloudy A (Clear) 09/30/24 09/30/24 10/01/24 Range/Units 17:58 20:12 06:21 RBC (4.30-5.90) m/uL Hgb (13.0-17.5) gm/dL Hct (39.0-53.0) % ABG pH 7.49 H (7.35-7.45) ABG pO2 57 L* (83-108) mmHg ABG HCO3 29 H (21-25) mmol/L ABG Total CO2 30 H (19-24) mmol/L ABG O2 Saturation 92.1 L (94-97) % Sodium (137-145) mmol/L Potassium (3.5-5.1) mmol/L Chloride (98-107) mmol/L Creatinine (0.66-1.25) mg/dL Glucose (74-99) mg/dL POC Glucose (mg/dL) 170 H 277 H (70-110) mg/dL Calcium (8.4-10.2) mg/dL Fluid Appearance (Clear) 10/01/24 10/01/24 Range/Units 07:41 07:41 RBC 3.97 L (4.30-5.90) m/uL Hgb 12.6 L (13.0-17.5) gm/dL Hct 38.7 L (39.0-53.0) % ABG pH (7.35-7.45) ABG pO2 (83-108) mmHg ABG HCO3 (21-25) mmol/L ABG Total CO2 (19-24) mmol/L ABG O2 Saturation (94-97) % Sodium 131 L (137-145) mmol/L Potassium 3.4 L (3.5-5.1) mmol/L Chloride 97 L (98-107) mmol/L Creatinine 0.63 L (0.66-1.25) mg/dL Glucose 277 H (74-99) mg/dL POC Glucose (mg/dL) (70-110) mg/dL Calcium 7.6 L (8.4-10.2) mg/dL Fluid Appearance (Clear) Microbiology - Last 24 Hours (Table) 09/30/24 15:40 Gram Stain - Preliminary Pleural Fluid 09/28/24 21:28 Blood Culture - Preliminary Blood 09/28/24 21:11 Blood Culture - Preliminary Blood
[2024-10-01] MEDS: POTASSIUM CHLORIDE ER 20 MEQ TAB.ER PO SCH (15:12)
--- NOTE | 2024-10-01 15:54 | P.PN ---
Subjective Progress Note Date: 10/01/24 Principal diagnosis: Pneumonia. This is a 59-year-old male patient with a known history of schizophrenia and resides in a adult foster care setting who had been brought into [facility] with increasing shortness of breath on September 22, 2024. He was requiring Airvo high flow oxygen and not showing much improvement and was transferred here direct admit to the selective care unit today. Chest x-ray here reveals bilateral pleural effusion and basilar infiltrates left greater than right. Correlate for underlying CHF. Possible pneumonia. Large lobulated density in the left lobe. He is currently sitting up in a chair. Awake and alert. Somewhat uncooperative. A safety lamp keeper is at the bedside. Continuously taking off his Airvo high flow oxygen device. This is currently set at 50 L and 80% FiO2. Procalcitonin at [place] was 2.40. He has been initiated on DuoNeb and elations, vancomycin and Zosyn. Ativan as needed. White count 14.9. Hemoglobin 13.9. Platelets 146. Sodium 136. Potassium 3.6. Bicarb 29. BUN 25. Creatinine 0.71. Glucose 157. He currently denies any worsening shortness of breath, cough or congestion. He is not clear as to why he was admitted. No family at the bedside. patient was seen today on 09/27/2024, patient remains at hypoxic, remains on Airvo at 50% FiO2 and 50 L flow patient is basically about the same seems to be more comfortable, he had a safety lamp keeper at bedside. As at times he seems to be quite agitated and restless. Ultrasound of the chest was reviewed, may have some debris in the pleural effusion, and there is also lung tissue, hence am not planning thoracentesis at this point. My recommendation to continue antibiotics and diuretics, and continue to monitor, we will decide whether the patient could benefit from thoracentesis or a pigtail catheter placement.WBC count is 15.8 hemoglobin 13.2 basic metabolic profile is normal renal profile is normalLegionella antigen is negative. Procalcitonin at [place] was +2.40 Patient was seen today on 09/28/2024, basically the patient is about the same, remains on Airvo, 50% FiO2 and 50% liters flow, mental status is basically about the same, patient is encephalopathic, reviewed the ultrasound of the chest, patient seems to have loculated pleural effusion and I am recommending a pigtail catheter placement next week by interventional radiology in the meantime continue antibiotics. Continues to have leukocytosis, continues to have relatively normal electrolytes. Patient had elevated procalcitonin level on admission Patient was seen today on 09/29/2024, patient is basically about the same, remains on Airvo, he has a safety lamp keeper at bedside, patient does not seem to verbalize much, remains encephalopathic. I have recommended pigtail catheter placement for his complicated or loculated pleural effusion, this will be done by interventional radiology hopefully tomorrow. In the meantime patient is receiving antibiotics for his pneumonia and parapneumonic effusion. The patient is seen today September 30, 2024 in follow-up on the selective care unit. He is currently resting in bed. Awake and alert. independent crop consultant remains at the bedside. He is continued on Airvo high flow oxygen at 45 L and 50% FiO2. Blood cultures revealing no growth thus far. White count 13.3. Hemoglobin 12.5. Platelets 190. Sodium 132. Potassium 3.5. Bicarb 27. BUN 21. Creatinine 0.73. Glucose 173. He is continued on Zosyn. Remains on broncho dilators. Plan is for pigtail catheter placement today for the left-sided loculated pleural effusion. Progress note dated October 01, 2024. 59-year-old male who is seen today in room 376. The patient is currently on Airvo, with settings of 50 L/min, and FiO2 of 85%. The patient is getting sa line at 75 cc an hour. A pigtail catheter was placed on the left side yesterday, by interventional radiology. Count 10.4, hemoglobin 12.6, hematocrit 38.7, and a platelet count of 173,000. Sodium 131, potassium 3.4, chloride 97, CO2 28, BUN 18, creatinine 0.63. Glucose is 245. Calcium 7.6. Objective - Vital Signs Vital signs: Vital Signs Temp 102.2 F H 10/01/24 15:10 Pulse 62 10/01/24 15:10 Resp 22 10/01/24 15:10 BP 148/75 10/01/24 15:10 Pulse Ox 98 10/01/24 15:10 FiO2 90 10/01/24 12:31 Intake & Output 09/30/24 10/01/24 10/01/24 18:59 06:59 18:59 Intake Total 180 118 Output Total 739 15 319 [facility] -559 -15 -201 Weight 73.5 kg Intake: Oral 180 118 Output: Chest Tube Drainage 39 15 68 Chest Tube Left 39 15 68 Urine 700 251 Other: Voiding Method External Catheter Diaper Diaper # Voids 1 1 1 # Bowel Movements 0 1 - Exam No acute distress, currently on Airvo. HEENT examination is grossly unremarkable. Mucous membranes are moist. No oral lesions. Neck supple. Full range of motion. No adenopathy thyromegaly or neck vein distention. Cardiovascular examination reveals regular rhythm rate. S1-S2 normal. No S3 or S4. No discernible murmur noted. Lungs reveal scattered bilateral rhonchi. No wheezes. No crackles. Breath sounds are equal bilaterally. Abdomen soft bowel sounds are heard. No masses or tenderness. Extremities are intact. No cyanosis clubbing or edema. Skin is without rash or lesion. Neurologic examination is brief but nonfocal. - Labs CBC & Chem 7: 10/01/24 07:41 10/01/24 07:41 Labs: Abnormal Lab Results - Last 24 Hours (Table) 09/30/24 09/30/24 09/30/24 Range/Units 15:40 16:16 17:58 RBC (4.30-5.90) m/uL Hgb (13.0-17.5) gm/dL Hct (39.0-53.0) % ABG pH 7.49 H (7.35-7.45) ABG pO2 57 L* (83-108) mmHg ABG HCO3 29 H (21-25) mmol/L ABG Total CO2 30 H (19-24) mmol/L ABG O2 Saturation 92.1 L (94-97) % Sodium (137-145) mmol/L Potassium (3.5-5.1) mmol/L Chloride (98-107) mmol/L Creatinine (0.66-1.25) mg/dL Glucose (74-99) mg/dL POC Glucose (mg/dL) 154 H (70-110) mg/dL Calcium (8.4-10.2) mg/dL Fluid Appearance Cloudy A (Clear) 09/30/24 10/01/24 10/01/24 Range/Units 20:12 06:21 07:41 RBC 3.97 L (4.30-5.90) m/uL Hgb 12.6 L (13.0-17.5) gm/dL Hct 38.7 L (39.0-53.0) % ABG pH (7.35-7.45) ABG pO2 (83-108) mmHg ABG HCO3 (21-25) mmol/L ABG Total CO2 (19-24) mmol/L ABG O2 Saturation (94-97) % Sodium (137-145) mmol/L Potassium (3.5-5.1) mmol/L Chloride (98-107) mmol/L Creatinine (0.66-1.25) mg/dL Glucose (74-99) mg/dL POC Glucose (mg/dL) 170 H 277 H (70-110) mg/dL Calcium (8.4-10.2) mg/dL Fluid Appearance (Clear) 10/01/24 10/01/24 Range/Units 07:41 11:24 RBC (4.30-5.90) m/uL Hgb (13.0-17.5) gm/dL Hct (39.0-53.0) % ABG pH (7.35-7.45) ABG pO2 (83-108) mmHg ABG HCO3 (21-25) mmol/L ABG Total CO2 (19-24) mmol/L ABG O2 Saturation (94-97) % Sodium 131 L (137-145) mmol/L Potassium 3.4 L (3.5-5.1) mmol/L Chloride 97 L (98-107) mmol/L Creatinine 0.63 L (0.66-1.25) mg/dL Glucose 277 H (74-99) mg/dL POC Glucose (mg/dL) 245 H (70-110) mg/dL Calcium 7.6 L (8.4-10.2) mg/dL Fluid Appearance (Clear) Microbiology - Last 24 Hours (Table) 09/28/24 21:28 Blood Culture - Preliminary Blood 09/28/24 21:11 Blood Culture - Preliminary Blood 09/30/24 15:40 Gram Stain - Preliminary Pleural Fluid Assessment and Plan Assessment: Acute hypoxemic respiratory failure secondary to suspected bilateral pneumonia, bilateral pleural effusion, possible underlying diastolic congestive heart failure. Loculated left-sided pleural effusion, S/P pigtail catheter placement, September 30, 2024. Leukocytosis secondary to above. Atrial fibrillation with a rapid ventricular response. Schizoaffective disorder. History of bipolar disorder with anxiety/depression. Diabetes mellitus, type II. History of mild intermittent chronic bronchial asthma. History of CVA. Hypertension. Gastroesophageal reflux disease. [facility] resident. Plan: Plan dated October 01, 2024. The patient is seen today in room 376. The patient continues on Airvo, at 50 L/min, with an FiO2 of 85%. The patient is getting saline at 75 cc an hour. A pigtail catheter was placed by interventional radiology, in the left chest. That was done yesterday, September 30. Labs, x-rays, and medications are reviewed. The patient is overall prognosis remains guarded. We will continue to follow the patient, make recommendations along the way. Time with Patient: Less than 30
[2024-10-01 16:52] LABS: Glucose,Whole Blood 204 mg/dL (70-110)
[2024-10-01] MEDS: HYDROcodone/APAP 5-325MG 1 EACH TAB PO PRN (17:49)
--- NOTE | 2024-10-01 20:05 | CDI ---
Documentation Clarification Form Date: 10/01/2024 07:39:32 PM From: Angy Swan RN,CCDS Phone: [phone] Admit Date: 09/26/2024 08:53:00 AM Patient Name: Lucas Dumont Visit Number: [id number] Discharge Date: ATTENTION: The Clinical Documentation Specialists (CDI) and [facility] Coding Staff appreciate your assistance in clarifying documentation. Please respond to the clarification below the line at the bottom and electronically sign. The CDI & [facility] Coding staff will review the response and follow-up if needed. Please note: Queries are made part of the Legal Health Record. If you have any questions, please contact the author of this message via ITS. Doctor. Edwar Ballesteros The patient sepsis documented in the Cardiology consult on 09/26/24. Based on this information and the findings below, is there an additional diagnosis that is clinically appropriate for this patient? History/Risk Factors: Asthma, COPD, CVA/TIA, Diabetes Mellitus, Hypertension, Thyroid Disorder Clinical Indicators: 59-year-old male transferred from [facility] for worsening respiratory status. VS: 151/70 115 20 97.6,(ax), 92% NRB Labs: WBC 14.9, Neutrophils 11.8, NA 136 Blood cultures: Pending, No Growth after 48 HRS. 09/26 CXR: Bilateral pleural effusion and basilar infiltrate greater on the left. Correlate for CHF. Underlying pneumonia not excluded. Large lobulated density in the left lobe. 09/26 Cardiology consult: chest x-ray showed bilateral lower lobe consolidation greater on the left side suspicious of pneumonia. He was started on IV antibiotics. Sinus tachycardia most likely because of respiratory distress and agitation Complicated pneumonia and Sepsis. Treatment: Cardiac, Telemetry monitoring Zosyn 3.375 MG IVPB Q 8 HRS VancomycinHCL1,500 MG IVPB 09/26 Is there an additional diagnosis that is clinically appropriate for this patient? [ x ] Sepsis, present on admission [ ] Sepsis ruled out [ ] Other, please specify [ ] Unable to determine SIRS Criteria: 2 or more of the following may indicate SIRS Temperature < 96.8F (36C) or > 101.0F (38.3C) Heart Rate > 90 bpm Respiratory Rate > 20 breaths/min or PaCO2 < 32 mmHg White Blood Cell Count > 12,000 or < 4,000 cells/mm3 or > 10% bands (Template Last Reviewed: October 2022) MTDD
[2024-10-01 20:10] LABS: Glucose,Whole Blood 185 mg/dL (70-110)
[2024-10-02 05:59] LABS: Glucose,Whole Blood 158 mg/dL (70-110)
[2024-10-02 08:18] LABS: Basophils # (A) 0.1 k/uL (0-0.2); Basophils % (A) 1 %; Eosinophils % (A) 0 %; HCT 38.8 % (39.0-53.0); HGB 12.7 gm/dL (13.0-17.5); Lymphocytes # (A) 1.3 k/uL (1.0-4.8); Lymphocytes % (A) 11 %; MCH 31.2 pg (25.0-35.0); MCHC 32.7 g/dL (31.0-37.0); MCV 95.4 fL (80.0-100.0); Mean Platelet Volume 7.6; Monocytes # (A) 1.1 k/uL (0-1.0); Monocytes % (A) 10 %; Neutrophils # (A) 8.6 k/uL (1.3-7.7); Neutrophils % (A) 76 %; Platelet Count 202 k/uL (150-450); RBC 4.07 m/uL (4.30-5.90); RDW 13.1 % (11.5-15.5); WBC 11.3 k/uL (3.8-10.6)
[2024-10-02 08:40] LABS: ALT 25 U/L (4-49); AST 37 U/L (17-59); African American GFR (CKD) >90 (>60 ml/min/1.73 sqM); Albumin 2.3 g/dL (3.5-5.0); Alkaline Phosphatase 218 U/L (38-126); Anion Gap 8 mmol/L; Blood Urea Nitrogen 14 mg/dL (9-20); Calcium 7.6 mg/dL (8.4-10.2); Carbon Dioxide 25 mmol/L (22-30); Chloride 100 mmol/L (98-107); Glucose 173 mg/dL (74-99); Non-African American GFR(CKD) >90 (>60 ml/min/1.73 sqM); Potassium 3.7 mmol/L (3.5-5.1); Sodium 133 mmol/L (137-145); Total Bilirubin 0.4 mg/dL (0.2-1.3); Total Protein 5.2 g/dL (6.3-8.2)
[2024-10-02 11:53] LABS: Glucose,Whole Blood 323 mg/dL (70-110)
[2024-10-02] MEDS: POTASSIUM CHLORIDE ER 20 MEQ TAB.ER PO STA (11:54)
--- NOTE | 2024-10-02 12:00 | P.PN ---
Subjective Progress Note Date: 09/30/24 Principal diagnosis: Reason for follow-up is leukocytosis and pneumonia Patient is a 59-year-old male with a past medical history significant for Schizophrenia resident of adult foster care was sent to the [facility] concerning for increasing shortness of breath with subsequent worsening of his symptoms with the patient has been transferred to [facility] concerning for pneumonia. On today's evaluation that is 09/30/2024, patient did have low-grade fever 100.3 F this morning, patient sleepy lethargic still requiring high flow nasal oxygen did not provide any history no vomiting or diarrhea has been reported. Patient white count is down to 13.3 creatinine 0.73 pleural fluid cultures pending Objective - Vital Signs Vital signs: Vital Signs Temp 99.1 F 09/30/24 12:50 Pulse 57 L 09/30/24 12:50 Resp 26 H 09/30/24 12:50 BP 116/62 09/30/24 12:50 Pulse Ox 97 09/30/24 12:50 FiO2 50 09/30/24 12:34 Intake & Output 09/29/24 09/30/24 09/30/24 18:59 06:59 18:59 Intake Total 1100 180 Output Total 1090 400 Balance 1100 -1090 -220 Intake: Intake, IV Titration 900 Amount Piperacillin-Tazobactam 3 300 .375 gm In Sodium Chloride 0.9% 100 ml @ 25 mls/hr IVPB Q8H [facility] Rx#: [id number] Sodium Chloride 0.9% 1, 600 000 ml @ 75 mls/hr IV . [id number] [facility] Rx#:[id number] Oral 200 180 Output: Urine 1090 400 Other: Voiding Method External Catheter External Catheter External Catheter # Voids 1 - Exam GENERAL DESCRIPTION: Middle-age male lying in bed in no distress RESPIRATORY SYSTEM: Unlabored breathing , decreased breath sounds at bases HEART: S1 S2 regular rate and rhythm , ABDOMEN: Soft , no tenderness EXTREMITIES: No edema feet - Labs CBC & Chem 7: 10/02/24 07:48 10/02/24 07:48 Labs: Abnormal Lab Results - Last 24 Hours (Table) 09/29/24 09/29/24 09/30/24 Range/Units 16:44 20:18 06:26 WBC (3.8-10.6) k/uL RBC (4.30-5.90) m/uL Hgb (13.0-17.5) gm/dL Hct (39.0-53.0) % Neutrophils # (Manual) (1.3-7.7) k/uL Monocytes # (Manual) (0-1.0) k/uL Metamyelocytes # (Man) (0) k/uL Sodium (137-145) mmol/L Chloride (98-107) mmol/L BUN (9-20) mg/dL Glucose (74-99) mg/dL POC Glucose (mg/dL) 206 H 141 H 219 H (70-110) mg/dL Calcium (8.4-10.2) mg/dL Total Protein (6.3-8.2) g/dL Albumin (3.5-5.0) g/dL 09/30/24 09/30/24 09/30/24 Range/Units 08:30 08:30 11:19 WBC 13.3 H (3.8-10.6) k/uL RBC 3.90 L (4.30-5.90) m/uL Hgb 12.5 L (13.0-17.5) gm/dL Hct 37.2 L (39.0-53.0) % Neutrophils # (Manual) 9.80 H (1.3-7.7) k/uL Monocytes # (Manual) 1.73 H (0-1.0) k/uL Metamyelocytes # (Man) 0.13 H (0) k/uL Sodium 132 L (137-145) mmol/L Chloride 97 L (98-107) mmol/L BUN 21 H (9-20) mg/dL Glucose 173 H (74-99) mg/dL POC Glucose (mg/dL) 214 H (70-110) mg/dL Calcium 7.9 L (8.4-10.2) mg/dL Total Protein 5.2 L (6.3-8.2) g/dL Albumin 2.4 L (3.5-5.0) g/dL Microbiology - Last 24 Hours (Table) 09/28/24 21:28 Blood Culture - Preliminary Blood 09/28/24 21:11 Blood Culture - Preliminary Blood 09/26/24 11:14 Blood Culture - Preliminary Blood Assessment and Plan (1) Leukocytosis Current Visit: Yes Status: Acute Code(s): D72.829 - ELEVATED WHITE BLOOD CELL COUNT, UNSPECIFIED SNOMED Code(s): 343919073 (2) Pneumonia Current Visit: Yes Status: Acute Code(s): J18.9 - PNEUMONIA, UNSPECIFIED ORGANISM SNOMED Code(s): 010363344 Plan: 1patient presenting to the hospital for evaluation of increasing shortness of breath in this patient who did have evidence of bilateral effusion and basilar atelectasis more on the left side patient did have elevated white count apparently he did have elevated procalcitonin at the [facility], concerning for possible pneumonia question of community-acquired versus gram- negative less likely MRSA 2- MRSA nasal screen has been negative blood cultures are pending sputum not collected 3patient did have chest ultrasound concerning for 8 cm loculated left effusion, patient status post IR drainage of this fluid chest tube placement and cultures currently pending 3-patient currently being treated with Zosyn while waiting for the culture to finalize Dictation was produced using [employer] dictation software. please excuse any grammatical, word or spelling errors. Time with Patient: Less than 30
--- NOTE | 2024-10-02 12:00 | P.PN ---
Subjective Progress Note Date: 10/01/24 Principal diagnosis: Reason for follow-up is leukocytosis and pneumonia Patient is a 59-year-old male with a past medical history significant for Schizophrenia resident of adult foster care was sent to the [facility] concerning for increasing shortness of breath with subsequent worsening of his symptoms with the patient has been transferred to [facility] concerning for pneumonia. On today's evaluation that is 10/01/2024, Patient have a fever 100.9 F this morning, the patient remains to be sleepy lethargic I did not provide any history no vomiting or diarrhea has been reported by the sitter at the bedside Patient white count normalized to 10.4 creatinine 0.63 pleural fluid culture currently pending Objective - Vital Signs Vital signs: Vital Signs Temp 102.2 F H 10/01/24 15:10 Pulse 62 10/01/24 15:10 Resp 22 10/01/24 15:10 BP 148/75 10/01/24 15:10 Pulse Ox 98 10/01/24 15:10 FiO2 90 10/01/24 12:31 Intake & Output 09/30/24 10/01/24 10/01/24 18:59 06:59 18:59 Intake Total 180 118 Output Total 739 15 319 [facility] -559 -15 -201 Weight 73.5 kg Intake: Oral 180 118 Output: Chest Tube Drainage 39 15 68 Chest Tube Left 39 15 68 Urine 700 251 Other: Voiding Method External Catheter Diaper Diaper # Voids 1 1 1 # Bowel Movements 0 1 - Exam GENERAL DESCRIPTION: Middle-age male lying in bed in no distress RESPIRATORY SYSTEM: Unlabored breathing , decreased breath sounds at bases HEART: S1 S2 regular rate and rhythm , ABDOMEN: Soft , no tenderness EXTREMITIES: No edema feet - Labs CBC & Chem 7: 10/02/24 07:48 10/02/24 07:48 Labs: Abnormal Lab Results - Last 24 Hours (Table) 09/30/24 09/30/24 09/30/24 Range/Units 15:40 16:16 17:58 RBC (4.30-5.90) m/uL Hgb (13.0-17.5) gm/dL Hct (39.0-53.0) % ABG pH 7.49 H (7.35-7.45) ABG pO2 57 L* (83-108) mmHg ABG HCO3 29 H (21-25) mmol/L ABG Total CO2 30 H (19-24) mmol/L ABG O2 Saturation 92.1 L (94-97) % Sodium (137-145) mmol/L Potassium (3.5-5.1) mmol/L Chloride (98-107) mmol/L Creatinine (0.66-1.25) mg/dL Glucose (74-99) mg/dL POC Glucose (mg/dL) 154 H (70-110) mg/dL Calcium (8.4-10.2) mg/dL Fluid Appearance Cloudy A (Clear) 09/30/24 10/01/24 10/01/24 Range/Units 20:12 06:21 07:41 RBC 3.97 L (4.30-5.90) m/uL Hgb 12.6 L (13.0-17.5) gm/dL Hct 38.7 L (39.0-53.0) % ABG pH (7.35-7.45) ABG pO2 (83-108) mmHg ABG HCO3 (21-25) mmol/L ABG Total CO2 (19-24) mmol/L ABG O2 Saturation (94-97) % Sodium (137-145) mmol/L Potassium (3.5-5.1) mmol/L Chloride (98-107) mmol/L Creatinine (0.66-1.25) mg/dL Glucose (74-99) mg/dL POC Glucose (mg/dL) 170 H 277 H (70-110) mg/dL Calcium (8.4-10.2) mg/dL Fluid Appearance (Clear) 10/01/24 10/01/24 Range/Units 07:41 11:24 RBC (4.30-5.90) m/uL Hgb (13.0-17.5) gm/dL Hct (39.0-53.0) % ABG pH (7.35-7.45) ABG pO2 (83-108) mmHg ABG HCO3 (21-25) mmol/L ABG Total CO2 (19-24) mmol/L ABG O2 Saturation (94-97) % Sodium 131 L (137-145) mmol/L Potassium 3.4 L (3.5-5.1) mmol/L Chloride 97 L (98-107) mmol/L Creatinine 0.63 L (0.66-1.25) mg/dL Glucose 277 H (74-99) mg/dL POC Glucose (mg/dL) 245 H (70-110) mg/dL Calcium 7.6 L (8.4-10.2) mg/dL Fluid Appearance (Clear) Microbiology - Last 24 Hours (Table) 09/28/24 21:28 Blood Culture - Preliminary Blood 09/28/24 21:11 Blood Culture - Preliminary Blood 09/30/24 15:40 Gram Stain - Preliminary Pleural Fluid Assessment and Plan (1) Leukocytosis Current Visit: Yes Status: Acute Code(s): D72.829 - ELEVATED WHITE BLOOD CELL COUNT, UNSPECIFIED SNOMED Code(s): 903057731 (2) Pneumonia Current Visit: Yes Status: Acute Code(s): J18.9 - PNEUMONIA, UNSPECIFIED ORGANISM SNOMED Code(s): 385610614 Plan: 1patient presenting to the hospital for evaluation of increasing shortness of breath in this patient who did have evidence of bilateral effusion and basilar atelectasis more on the left side patient did have elevated white count apparently he did have elevated procalcitonin at the [facility], concerning for possible pneumonia question of community-acquired versus gram- negative less likely MRSA 2- MRSA nasal screen has been negative blood cultures are pending sputum not collected 3patient did have chest ultrasound concerning for 8 cm loculated left effusion, patient status post IR drainage of this fluid chest tube placement and cultures currently pending 3-patient is running a low-grade fever however the patient white count normalized, we will continue with Zosyn while waiting for the culture to finalize Dictation was produced using [employer] dictation software. please excuse any grammatical, word or spelling errors. Time with Patient: Less than 30
--- NOTE | 2024-10-02 13:58 | P.PN ---
Subjective Progress Note Date: 10/02/24 patient is a 59-year-old gentleman with past medical history significant for schizophrenia who is a resident of a adult foster care was transferred to [facility] from [facility] for worsening respiratory status. Patient initially presented to [facility] for shortness of breath and c hest pain for 4 to 5 days. According to medical records, patient was complaining of shortness of breath on exertion and chest pain that was pleuritic in nature worsened by taking deep breaths. Patient was also complaining of lethargy and weakness. There is no complaint of cough. There was no complaint of fever or chills. Patient was worked up in [facility], initial CT chest done showed bilateral lower lobe consolidation greater on the left suspicious for pneumonia. Patient was admitted there and was started on IV antibiotics. Patient also had 2D echo done that showed normal LV systolic function with LVEF of 66 65%, there was some diastolic dysfunction present. No valvular pathology seen. While at [facility], patient respiratory status worsened, patient was requiring heated high flow. Because of respiratory status, transfer was requested and patient was transferred to [facility] Patient admitted to internal medicine service 09/27. Patient seen and examined. Patient is doing better compared to yesterday, patient did not answer many of my questions. 09/28. Patient seen and examined. Patient continues to be on Airvo. 09/29. Patient seen examined. Patient was agitated overnight and received Ativan. Continues to require heated high flow. 09/30. Patient seen and examined. Patient is not the best historian, not willing to answer any question. Patient being scheduled for IR guided pigtail catheter placement 10/01. Patient seen and examined. vital signs stable. Patient had IR guided pigtail catheter placement on left side. Patient lethargic, complaining of pain at the catheter site 10/02/2019. Patient seen and examined. Patient is awake, more responsive compared to yesterday. Patient states that he wants his tube to come out. Denies any chest pain REVIEW OF SYSTEMS: Denies any chest pain. Denies any shortness of breath at rest. Continues to have poor appetite. PHYSICAL EXAMINATION: GENERAL: The patient is lethargic , ill looking HEENT: Pupils are round and equally reacting to light. EOMI. No scleral icterus. No conjunctival pallor. Normocephalic, atraumatic. No pharyngeal erythema. No thyromegaly. CARDIOVASCULAR: S1 and S2 present. No murmurs, rubs, or gallops. PULMONARY: Coarse breath sound bilaterally,, left-sided pigtail catheter seen ABDOMEN: Soft, nontender, nondistended, normoactive bowel sounds. No palpable organomegaly. MUSCULOSKELETAL: No joint swelling or deformity. EXTREMITIES: No cyanosis, clubbing, or pedal edema. NEUROLOGICAL: Gross neurological examination did not reveal any focal deficits. SKIN: No rashes. Assessment and plan Acute hypoxemic respiratory failure Bilateral pleural effusions Bacterial pneumonia Paroxysmal A-fib with RVR ruled out Sinus tachycardia Leukocytosis secondary to above Schizoaffective disorder History of bipolar disorder with anxiety/depression Diabetes mellitus, type II History of CVA Hypertension Gastroesophageal reflux disease Monitor vital signs Monitor CBC Monitor CMP Continue ox supplementation aggressive bronchopulmonary hygiene Follow-up on blood cultures Status post IR guided pigtail catheter placement on left side Continue breathing treatments Continue IV Zosyn Continue Lopressor and Cardizem Pulmonology following, ID following Cardiology evaluated, recommend beta-blockers, no need for repeating 2D echo Labs and medication were reviewed.. Continue same treatment. Continue with symptomatic treatment. Resume home medication. Monitor labs and vitals. DVT and GI prophylaxis. Further recommendations as per clinical course of the patient Dictation was produced using [employer] dictation software. please excuse any grammatical, word or spelling errors. Objective - Vital Signs Vital signs: Vital Signs Temp 97.8 F 10/02/24 11:39 Pulse 60 10/02/24 11:39 Resp 16 10/02/24 11:39 BP 129/68 10/02/24 11:39 Pulse Ox 96 10/02/24 11:53 FiO2 80 10/02/24 11:53 Intake & Output 10/01/24 10/02/24 10/02/24 18:59 06:59 18:59 Intake Total 236 118 Output Total 319 10 14 Balance -83 -10 104 Weight 77.5 kg Intake: Oral 236 118 Output: Chest Tube Drainage 68 10 14 Chest Tube Left 68 10 14 Urine 251 Other: Voiding Method Diaper Diaper Diaper # Voids 2 1 3 # Bowel Movements 1 1 - Labs CBC & Chem 7: 10/02/24 07:48 10/02/24 07:48 Labs: Abnormal Lab Results - Last 24 Hours (Table) 10/01/24 10/01/24 10/02/24 Range/Units 16:41 20:08 05:58 WBC (3.8-10.6) k/uL RBC (4.30-5.90) m/uL Hgb (13.0-17.5) gm/dL Hct (39.0-53.0) % Neutrophils # (1.3-7.7) k/uL Monocytes # (0-1.0) k/uL Sodium (137-145) mmol/L Creatinine (0.66-1.25) mg/dL Glucose (74-99) mg/dL POC Glucose (mg/dL) 204 H 185 H 158 H (70-110) mg/dL Calcium (8.4-10.2) mg/dL Alkaline Phosphatase (38-126) U/L Total Protein (6.3-8.2) g/dL Albumin (3.5-5.0) g/dL 10/02/24 10/02/24 10/02/24 Range/Units 07:48 07:48 11:51 WBC 11.3 H (3.8-10.6) k/uL RBC 4.07 L (4.30-5.90) m/uL Hgb 12.7 L (13.0-17.5) gm/dL Hct 38.8 L (39.0-53.0) % Neutrophils # 8.6 H (1.3-7.7) k/uL Monocytes # 1.1 H (0-1.0) k/uL Sodium 133 L (137-145) mmol/L Creatinine 0.62 L (0.66-1.25) mg/dL Glucose 173 H (74-99) mg/dL POC Glucose (mg/dL) 323 H (70-110) mg/dL Calcium 7.6 L (8.4-10.2) mg/dL Alkaline Phosphatase 218 H (38-126) U/L Total Protein 5.2 L (6.3-8.2) g/dL Albumin 2.3 L (3.5-5.0) g/dL Microbiology - Last 24 Hours (Table) 09/28/24 21:28 Blood Culture - Preliminary Blood 09/28/24 21:11 Blood Culture - Preliminary Blood 09/26/24 11:14 Blood Culture - Final Blood 09/30/24 15:40 Gram Stain - Preliminary Pleural Fluid Body Fluid Culture - Preliminary
--- NOTE | 2024-10-02 14:23 | P.PN ---
Subjective Progress Note Date: 10/02/24 Principal diagnosis: Pneumonia. This is a 59-year-old male patient with a known history of schizophrenia and resides in a adult foster care setting who had been brought into [facility] with increasing shortness of breath on September 22, 2024. He was requiring Airvo high flow oxygen and not showing much improvement and was transferred here direct admit to the selective care unit today. Chest x-ray here reveals bilateral pleural effusion and basilar infiltrates left greater than right. Correlate for underlying CHF. Possible pneumonia. Large lobulated density in the left lobe. He is currently sitting up in a chair. Awake and alert. Somewhat uncooperative. A system safety engineer is at the bedside. Continuously taking off his Airvo high flow oxygen device. This is currently set at 50 L and 80% FiO2. Procalcitonin at [facility] was 2.40. He has been initiated on DuoNeb and elations, vancomycin and Zosyn. Ativan as needed. White count 14.9. Hemoglobin 13.9. Platelets 146. Sodium 136. Potassium 3.6. Bicarb 29. BUN 25. Creatinine 0.71. Glucose 157. He currently denies any worsening shortness of breath, cough or congestion. He is not clear as to why he was admitted. No family at the bedside. patient was seen today on 09/27/2024, patient remains at hypoxic, remains on Airvo at 50% FiO2 and 50 L flow patient is basically about the same seems to be more comfortable, he had a system safety engineer at bedside. As at times he seems to be quite agitated and restless. Ultrasound of the chest was reviewed, may have some debris in the pleural effusion, and there is also lung tissue, hence am not planning thoracentesis at this point. My recommendation to continue antibiotics and diuretics, and continue to monitor, we will decide whether the patient could benefit from thoracentesis or a pigtail catheter placement.WBC count is 15.8 hemoglobin 13.2 basic metabolic profile is normal renal profile is normalLegionella antigen is negative. Procalcitonin at [facility] was +2.40 Patient was seen today on 09/28/2024, basically the patient is about the same, remains on Airvo, 50% FiO2 and 50% liters flow, mental status is basically about the same, patient is encephalopathic, reviewed the ultrasound of the chest, patient seems to have loculated pleural effusion and I am recommending a pigtail catheter placement next week by interventional radiology in the meantime continue antibiotics. Continues to have leukocytosis, continues to have relatively normal electrolytes. Patient had elevated procalcitonin level on admission Patient was seen today on 09/29/2024, patient is basically about the same, remains on Airvo, he has a system safety engineer at bedside, patient does not seem to verbalize much, remains encephalopathic. I have recommended pigtail catheter placement for his complicated or loculated pleural effusion, this will be done by interventional radiology hopefully tomorrow. In the meantime patient is receiving antibiotics for his pneumonia and parapneumonic effusion. The patient is seen today September 30, 2024 in follow-up on the selective care unit. He is currently resting in bed. Awake and alert. shellfish bed worker remains at the bedside. He is continued on Airvo high flow oxygen at 45 L and 50% FiO2. Blood cultures revealing no growth thus far. White count 13.3. Hemoglobin 12.5. Platelets 190. Sodium 132. Potassium 3.5. Bicarb 27. BUN 21. Creatinine 0.73. Glucose 173. He is continued on Zosyn. Remains on broncho dilators. Plan is for pigtail catheter placement today for the left-sided loculated pleural effusion. Progress note dated October 01, 2024. 59-year-old male who is seen today in room 376. The patient is currently on Airvo, with settings of 50 L/min, and FiO2 of 85%. The patient is getting sa line at 75 cc an hour. A pigtail catheter was placed on the left side yesterday, by interventional radiology. Count 10.4, hemoglobin 12.6, hematocrit 38.7, and a platelet count of 173,000. Sodium 131, potassium 3.4, chloride 97, CO2 28, BUN 18, creatinine 0.63. Glucose is 245. Calcium 7.6. Progress note dated October 02, 2024. 59-year-old male seen in room 376. The patient is currently on Airvo at 50 L/min with an FiO2 of 80%. He continues on Zosyn. A left pigtail catheter is noted. The patient clinically is doing better. We encouraged him today to use his incentive spirometer, which apparently he was not using. We have asked the nurse to coach wirer the patient, to use it on a hourly basis. Current labs include white count 11.3, hemoglobin 12.7, hematocrit 38.8, and a normal platelet count of 202,000. Sodium 133, potassium 3.7, chlorides 100, CO2 25, BUN 14, and creatinine 0.62. Glucose is 173. Albumin is 2.3. Calcium is 7.6. Objective - Vital Signs Vital signs: Vital Signs Temp 97.8 F 10/02/24 11:39 Pulse 60 10/02/24 11:39 Resp 16 10/02/24 11:39 BP 129/68 10/02/24 11:39 Pulse Ox 96 10/02/24 11:53 FiO2 80 10/02/24 11:53 Intake & Output 10/01/24 10/02/24 10/02/24 18:59 06:59 18:59 Intake Total 236 118 Output Total 319 10 14 Balance -83 -10 104 Weight 77.5 kg Intake: Oral 236 118 Output: Chest Tube Drainage 68 10 14 Chest Tube Left 68 10 14 Urine 251 Other: Voiding Method Diaper Diaper Diaper # Voids 2 1 3 # Bowel Movements 1 1 - Exam No acute distress, currently on Airvo. HEENT examination is grossly unremarkable. Mucous membranes are moist. No oral lesions. Neck supple. Full range of motion. No adenopathy thyromegaly or neck vein distention. Cardiovascular examination reveals regular rhythm rate. S1-S2 normal. No S3 or S4. No discernible murmur noted. Lungs reveal scattered bilateral rhonchi. No wheezes. No crackles. Breath sounds are equal bilaterally. Abdomen soft bowel sounds are heard. No masses or tenderness. Extremities are intact. No cyanosis clubbing or edema. Skin is without rash or lesion. Neurologic examination is brief but nonfocal. - Labs CBC & Chem 7: 10/02/24 07:48 10/02/24 07:48 Labs: Abnormal Lab Results - Last 24 Hours (Table) 10/01/24 10/01/24 10/02/24 Range/Units 16:41 20:08 05:58 WBC (3.8-10.6) k/uL RBC (4.30-5.90) m/uL Hgb (13.0-17.5) gm/dL Hct (39.0-53.0) % Neutrophils # (1.3-7.7) k/uL Monocytes # (0-1.0) k/uL Sodium (137-145) mmol/L Creatinine (0.66-1.25) mg/dL Glucose (74-99) mg/dL POC Glucose (mg/dL) 204 H 185 H 158 H (70-110) mg/dL Calcium (8.4-10.2) mg/dL Alkaline Phosphatase (38-126) U/L Total Protein (6.3-8.2) g/dL Albumin (3.5-5.0) g/dL 10/02/24 10/02/24 10/02/24 Range/Units 07:48 07:48 11:51 WBC 11.3 H (3.8-10.6) k/uL RBC 4.07 L (4.30-5.90) m/uL Hgb 12.7 L (13.0-17.5) gm/dL Hct 38.8 L (39.0-53.0) % Neutrophils # 8.6 H (1.3-7.7) k/uL Monocytes # 1.1 H (0-1.0) k/uL Sodium 133 L (137-145) mmol/L Creatinine 0.62 L (0.66-1.25) mg/dL Glucose 173 H (74-99) mg/dL POC Glucose (mg/dL) 323 H (70-110) mg/dL Calcium 7.6 L (8.4-10.2) mg/dL Alkaline Phosphatase 218 H (38-126) U/L Total Protein 5.2 L (6.3-8.2) g/dL Albumin 2.3 L (3.5-5.0) g/dL Microbiology - Last 24 Hours (Table) 09/28/24 21:28 Blood Culture - Preliminary Blood 09/28/24 21:11 Blood Culture - Preliminary Blood 09/26/24 11:14 Blood Culture - Final Blood 09/30/24 15:40 Gram Stain - Preliminary Pleural Fluid Body Fluid Culture - Preliminary Assessment and Plan Assessment: Acute hypoxemic respiratory failure secondary to suspected bilateral pneumonia, bilateral pleural effusion, possible underlying diastolic congestive heart failure. Loculated left-sided pleural effusion, S/P pigtail catheter placement, September 30, 2024. Leukocytosis secondary to above. Atrial fibrillation with a rapid ventricular response. Schizoaffective disorder. History of bipolar disorder with anxiety/depression. Diabetes mellitus, type II. History of mild intermittent chronic bronchial asthma. History of CVA. Hypertension. Gastroesophageal reflux disease. [facility] resident. Plan: Plan dated October 01, 2024. The patient is seen today in room 376. The patient continues on Airvo, at 50 L/min, with an FiO2 of 85%. The patient is getting saline at 75 cc an hour. A pigtail catheter was placed by interventional radiology, in the left chest. That was done yesterday, September 30. Labs, x-rays, and medications are reviewed. The patient is overall prognosis remains guarded. We will continue to follow the patient, make recommendations along the way. Plan dated October 02, 2024. The patient is seen today in room 376. The patient continues on Airvo. Settings include 50 L/min with an FiO2 of 80%. The patient continues on Zosyn. No IV fluids. The left pigtail catheter is in place. The patient continues on Zosyn as mentioned. Labs, x-rays, medications are reviewed. Will continue to follow the patient, make recommendations along the way. Clinically, the patient looks relatively stable. We do encourage him to use the incentive spirometer, every hour while awake. Time with Patient: Less than 30
--- NOTE | 2024-10-02 15:54 | P.PN ---
Subjective Progress Note Date: 10/02/24 Principal diagnosis: Reason for follow-up is leukocytosis and pneumonia Patient is a 59-year-old male with a past medical history significant for Schizophrenia resident of adult foster care was sent to the [facility] concerning for increasing shortness of breath with subsequent worsening of his symptoms with the patient has been transferred to [facility] concerning for pneumonia. On today's evaluation that is 10/02/2024,the patient did spike a fever this morning of 101.6 however the patient is afebrile this afternoon patient mention feeling better he is breathing slightly comfortably still requiring high flow nasal cannula Airvo patient denies having any chest pain or worsening cough no abdominal pain or diarrhea. Patient white count is 11.3 creatinine 0.62 pleural fluid culture currently pending Objective - Vital Signs Vital signs: Vital Signs Temp 97.8 F 10/02/24 11:39 Pulse 60 10/02/24 11:39 Resp 16 10/02/24 11:39 BP 129/68 10/02/24 11:39 Pulse Ox 96 10/02/24 15:41 FiO2 75 10/02/24 15:41 Intake & Output 10/01/24 10/02/24 10/02/24 18:59 06:59 18:59 Intake Total 236 118 Output Total 319 10 14 Balance -83 -10 104 Weight 77.5 kg Intake: Oral 236 118 Output: Chest Tube Drainage 68 10 14 Chest Tube Left 68 10 14 Urine 251 Other: Voiding Method Diaper Diaper Diaper # Voids 2 1 3 # Bowel Movements 1 1 - Exam GENERAL DESCRIPTION: Middle-age male lying in bed in no distress RESPIRATORY SYSTEM: Unlabored breathing , decreased breath sounds at bases HEART: S1 S2 regular rate and rhythm , ABDOMEN: Soft , no tenderness EXTREMITIES: No edema feet - Labs CBC & Chem 7: 10/02/24 07:48 10/02/24 07:48 Labs: Abnormal Lab Results - Last 24 Hours (Table) 10/01/24 10/01/24 10/02/24 Range/Units 16:41 20:08 05:58 WBC (3.8-10.6) k/uL RBC (4.30-5.90) m/uL Hgb (13.0-17.5) gm/dL Hct (39.0-53.0) % Neutrophils # (1.3-7.7) k/uL Monocytes # (0-1.0) k/uL Sodium (137-145) mmol/L Creatinine (0.66-1.25) mg/dL Glucose (74-99) mg/dL POC Glucose (mg/dL) 204 H 185 H 158 H (70-110) mg/dL Calcium (8.4-10.2) mg/dL Alkaline Phosphatase (38-126) U/L Total Protein (6.3-8.2) g/dL Albumin (3.5-5.0) g/dL 10/02/24 10/02/24 10/02/24 Range/Units 07:48 07:48 11:51 WBC 11.3 H (3.8-10.6) k/uL RBC 4.07 L (4.30-5.90) m/uL Hgb 12.7 L (13.0-17.5) gm/dL Hct 38.8 L (39.0-53.0) % Neutrophils # 8.6 H (1.3-7.7) k/uL Monocytes # 1.1 H (0-1.0) k/uL Sodium 133 L (137-145) mmol/L Creatinine 0.62 L (0.66-1.25) mg/dL Glucose 173 H (74-99) mg/dL POC Glucose (mg/dL) 323 H (70-110) mg/dL Calcium 7.6 L (8.4-10.2) mg/dL Alkaline Phosphatase 218 H (38-126) U/L Total Protein 5.2 L (6.3-8.2) g/dL Albumin 2.3 L (3.5-5.0) g/dL Microbiology - Last 24 Hours (Table) 09/28/24 21:28 Blood Culture - Preliminary Blood 09/28/24 21:11 Blood Culture - Preliminary Blood 09/26/24 11:14 Blood Culture - Final Blood 09/30/24 15:40 Gram Stain - Preliminary Pleural Fluid Body Fluid Culture - Preliminary Assessment and Plan (1) Leukocytosis Current Visit: Yes Status: Acute Code(s): D72.829 - ELEVATED WHITE BLOOD CELL COUNT, UNSPECIFIED SNOMED Code(s): 733039761 (2) Pneumonia Current Visit: Yes Status: Acute Code(s): J18.9 - PNEUMONIA, UNSPECIFIED ORGANISM SNOMED Code(s): 144943103 Plan: 1patient presenting to the hospital for evaluation of increasing shortness of breath in this patient who did have evidence of bilateral effusion and basilar atelectasis more on the left side patient did have elevated white count apparently he did have elevated procalcitonin at the [facility], concerning for possible pneumonia question of community-acquired versus gram- negative less likely MRSA 2- MRSA nasal screen has been negative blood cultures are pending sputum not collected 3patient did have chest ultrasound concerning for 8 cm loculated left effusion, patient status post IR drainage of this fluid chest tube placement and cultures currently pending 3-patient white count normalized and some improvement in the fever pattern patient will be treated with Zosyn while waiting for the culture to finalize, Dictation was produced using [employer] dictation software. please excuse any grammatical, word or spelling errors. Time with Patient: Less than 30
[2024-10-02 16:34] LABS: Glucose,Whole Blood 251 mg/dL (70-110)
[2024-10-02 18:35] LABS: Glucose,Whole Blood 280 mg/dL (70-110)
[2024-10-02 19:51] LABS: Glucose,Whole Blood 253 mg/dL (70-110)
[2024-10-03 05:52] LABS: Glucose,Whole Blood 248 mg/dL (70-110)
[2024-10-03 07:07] LABS: Basophils # (A) 0.1 k/uL (0-0.2); Basophils % (A) 1 %; Eosinophils # (A) 0.1 k/uL (0-0.7); Eosinophils % (A) 1 %; HCT 40.3 % (39.0-53.0); HGB 13.4 gm/dL (13.0-17.5); Lymphocytes # (A) 1.4 k/uL (1.0-4.8); Lymphocytes % (A) 12 %; MCH 31.9 pg (25.0-35.0); MCHC 33.3 g/dL (31.0-37.0); Mean Platelet Volume 7.4; Monocytes # (A) 0.7 k/uL (0-1.0); Monocytes % (A) 7 %; Neutrophils # (A) 8.7 k/uL (1.3-7.7); Neutrophils % (A) 77 %; Platelet Count 215 k/uL (150-450); RDW 13.1 % (11.5-15.5); WBC 11.3 k/uL (3.8-10.6)
[2024-10-03 08:06] LABS: ALT 22 U/L (4-49); AST 47 U/L (17-59); African American GFR (CKD) >90 (>60 ml/min/1.73 sqM); Albumin 2.3 g/dL (3.5-5.0); Alkaline Phosphatase 326 U/L (38-126); Anion Gap 5 mmol/L; Blood Urea Nitrogen 11 mg/dL (9-20); Calcium 7.9 mg/dL (8.4-10.2); Carbon Dioxide 31 mmol/L (22-30); Chloride 96 mmol/L (98-107); Glucose 221 mg/dL (74-99); Non-African American GFR(CKD) >90 (>60 ml/min/1.73 sqM); Potassium 4.2 mmol/L (3.5-5.1); Sodium 132 mmol/L (137-145); Total Bilirubin 0.4 mg/dL (0.2-1.3); Total Protein 5.4 g/dL (6.3-8.2)
[2024-10-03 08:33] LABS: Glucose,Whole Blood 210 mg/dL (70-110)
[2024-10-03] MEDS: ACETAMINOPHEN IV (For NPO) 1,000 MG in EMPTY BAG 1 BAG IVPB STA ×2 (08:39→22:22)
[2024-10-03 08:43] LABS: ABG Base Excess 5.7 mmol/L; ABG HCO3 29 mmol/L (21-25); ABG Oxygen Saturation 92.2 % (94-97); ABG PCO2 36 mmHg (35-45); ABG PH 7.51 (7.35-7.45); ABG TCO2 30 mmol/L (19-24); Allen Test Performed? Yes
[2024-10-03 08:49] LABS: ABG PO2 55 mmHg (83-108)
--- NOTE | 2024-10-03 09:19 | XR ---
EXAMINATION TYPE: XR chest 1V portable DATE OF EXAM: 10/03/2024 8:52 AM COMPARISON: 09/26/2024 CLINICAL INDICATION: Male, 59 years old with history of sob, , FINDINGS: Heart normal size. Interstitial densities persist. Moderate left pleural effusion with loculated comp onents up to the apex are redemonstrated though decreased in size with a left basilar pigtail pleural catheter in place. IMPRESSION: Left basilar pleural catheter in place with decreasing size of a moderate sized pleural effusion with loculations. Background interstitial densities persist. [facility], , 10/03/2024 9:17 AM
[2024-10-03 11:41] LABS: Glucose,Whole Blood 304 mg/dL (70-110)
--- NOTE | 2024-10-03 12:46 | P.PN ---
Subjective Progress Note Date: 10/03/24 patient is a 59-year-old gentleman with past medical history significant for schizophrenia who is a resident of a adult foster care was transferred to [facility] from [facility] for worsening respiratory status. Patient initially presented to [facility] for shortness of breath and c hest pain for 4 to 5 days. According to medical records, patient was complaining of shortness of breath on exertion and chest pain that was pleuritic in nature worsened by taking deep breaths. Patient was also complaining of lethargy and weakness. There is no complaint of cough. There was no complaint of fever or chills. Patient was worked up in [facility], initial CT chest done showed bilateral lower lobe consolidation greater on the left suspicious for pneumonia. Patient was admitted there and was started on IV antibiotics. Patient also had 2D echo done that showed normal LV systolic function with LVEF of 66 65%, there was some diastolic dysfunction present. No valvular pathology seen. While at [facility], patient respiratory status worsened, patient was requiring heated high flow. Because of respiratory status, transfer was requested and patient was transferred to [facility] Patient admitted to internal medicine service 09/27. Patient seen and examined. Patient is doing better compared to yesterday, patient did not answer many of my questions. 09/28. Patient seen and examined. Patient continues to be on Airvo. 09/29. Patient seen examined. Patient was agitated overnight and received Ativan. Continues to require heated high flow. 09/30. Patient seen and examined. Patient is not the best historian, not willing to answer any question. Patient being scheduled for IR guided pigtail catheter placement 10/01. Patient seen and examined. vital signs stable. Patient had IR guided pigtail catheter placement on left side. Patient lethargic, complaining of pain at the catheter site 10/02/2024. Patient seen and examined. Patient is awake, more responsive compared to yesterday. Patient states that he wants his tube to come out. Denies any chest pain 10/03/2024. Patient seen and examined. Patient had fever overnight 200.2. Currently on high flow Airvo at 70% FiO2, patient had A team this morning for shortness of breath. Currently doing better. REVIEW OF SYSTEMS: Denies any chest pain. Denies any shortness of breath at rest. Continues to have poor appetite. PHYSICAL EXAMINATION: GENERAL: The patient is lethargic , ill looking HEENT: Pupils are round and equally reacting to light. EOMI. No scleral icterus. No conjunctival pallor. Normocephalic, atraumatic. No pharyngeal erythema. No thyromegaly. CARDIOVASCULAR: S1 and S2 present. No murmurs, rubs, or gallops. PULMONARY: Coarse breath sound bilaterally, crackles audible, left-sided pigtail catheter seen ABDOMEN: Soft, nontender, nondistended, normoactive bowel sounds. No palpable organomegaly. MUSCULOSKELETAL: No joint swelling or deformity. EXTREMITIES: No cyanosis, clubbing, or pedal edema. NEUROLOGICAL: Gross neurological examination did not reveal any focal deficits. SKIN: No rashes. Assessment and plan Acute hypoxemic respiratory failure Bilateral pleural effusions Bacterial pneumonia Paroxysmal A-fib with RVR ruled out Sinus tachycardia Leukocytosis secondary to above Schizoaffective disorder History of bipolar disorder with anxiety/depression Diabetes mellitus, type II History of CVA Hypertension Gastroesophageal reflux disease Monitor vital signs Monitor CBC Monitor CMP Continue ox supplementation aggressive bronchopulmonary hygiene Follow-up on blood cultures Status post IR guided pigtail catheter placement on left side Continue breathing treatments Continue IV Zosyn Continue Lopressor and Cardizem Pulmonology following, ID following Cardiology evaluated, recommend beta-blockers, no need for repeating 2D echo Labs and medication were reviewed.. Continue same treatment. Continue with symptomatic treatment. Resume home medication. Monitor labs and vitals. DVT and GI prophylaxis. Further recommendations as per clinical course of the patient Dictation was produced using [employer] dictation software. please excuse any grammatical, word or spelling errors. Objective - Vital Signs Vital signs: Vital Signs Temp 98.6 F 10/03/24 12:00 Pulse 59 L 10/03/24 12:00 Resp 18 10/03/24 12:00 BP 121/65 10/03/24 12:00 Pulse Ox 96 10/03/24 12:00 FiO2 70 10/03/24 12:00 Intake & Output 10/02/24 10/03/24 10/03/24 18:59 06:59 18:59 Intake Total 358 240 Output Total 14 0 0 Balance 344 0 240 Weight 77.5 kg Intake: Oral 358 240 Output: Chest Tube Drainage 14 0 0 Chest Tube Left 14 0 0 Other: Voiding Method Diaper Diaper Diaper # Voids 2 2 # Bowel Movements 1 - Labs CBC & Chem 7: 10/03/24 06:51 10/03/24 06:51 Labs: Abnormal Lab Results - Last 24 Hours (Table) 10/02/24 10/02/24 10/02/24 Range/Units 16:25 18:33 19:50 WBC (3.8-10.6) k/uL RBC (4.30-5.90) m/uL Neutrophils # (1.3-7.7) k/uL ABG pH (7.35-7.45) ABG pO2 (83-108) mmHg ABG HCO3 (21-25) mmol/L ABG Total CO2 (19-24) mmol/L ABG O2 Saturation (94-97) % Sodium (137-145) mmol/L Chloride (98-107) mmol/L Carbon Dioxide (22-30) mmol/L Glucose (74-99) mg/dL POC Glucose (mg/dL) 251 H 280 H 253 H (70-110) mg/dL Calcium (8.4-10.2) mg/dL Alkaline Phosphatase (38-126) U/L Total Protein (6.3-8.2) g/dL Albumin (3.5-5.0) g/dL 10/03/24 10/03/24 10/03/24 Range/Units 05:47 06:51 06:51 WBC 11.3 H (3.8-10.6) k/uL RBC 4.20 L (4.30-5.90) m/uL Neutrophils # 8.7 H (1.3-7.7) k/uL ABG pH (7.35-7.45) ABG pO2 (83-108) mmHg ABG HCO3 (21-25) mmol/L ABG Total CO2 (19-24) mmol/L ABG O2 Saturation (94-97) % Sodium 132 L (137-145) mmol/L Chloride 96 L (98-107) mmol/L Carbon Dioxide 31 H (22-30) mmol/L Glucose 221 H (74-99) mg/dL POC Glucose (mg/dL) 248 H (70-110) mg/dL Calcium 7.9 L (8.4-10.2) mg/dL Alkaline Phosphatase 326 H (38-126) U/L Total Protein 5.4 L (6.3-8.2) g/dL Albumin 2.3 L (3.5-5.0) g/dL 10/03/24 10/03/24 10/03/24 Range/Units 08:30 08:37 11:39 WBC (3.8-10.6) k/uL RBC (4.30-5.90) m/uL Neutrophils # (1.3-7.7) k/uL ABG pH 7.51 H (7.35-7.45) ABG pO2 55 L* (83-108) mmHg ABG HCO3 29 H (21-25) mmol/L ABG Total CO2 30 H (19-24) mmol/L ABG O2 Saturation 92.2 L (94-97) % Sodium (137-145) mmol/L Chloride (98-107) mmol/L Carbon Dioxide (22-30) mmol/L Glucose (74-99) mg/dL POC Glucose (mg/dL) 210 H 304 H (70-110) mg/dL Calcium (8.4-10.2) mg/dL Alkaline Phosphatase (38-126) U/L Total Protein (6.3-8.2) g/dL Albumin (3.5-5.0) g/dL Microbiology - Last 24 Hours (Table) 09/30/24 15:40 Anaerobic Culture - Preliminary Pleural Fluid 09/30/24 15:40 Gram Stain - Preliminary Pleural Fluid Body Fluid Culture - Preliminary 09/28/24 21:28 Blood Culture - Preliminary Blood 09/28/24 21:11 Blood Culture - Preliminary Blood
--- NOTE | 2024-10-03 14:01 | P.PN ---
Subjective Progress Note Date: 10/03/24 Principal diagnosis: Pneumonia. This is a 59-year-old male patient with a known history of schizophrenia and resides in a adult foster care setting who had been brought into [facility] with increasing shortness of breath on September 22, 2024. He was requiring Airvo high flow oxygen and not showing much improvement and was transferred here direct admit to the selective care unit today. Chest x-ray here reveals bilateral pleural effusion and basilar infiltrates left greater than right. Correlate for underlying CHF. Possible pneumonia. Large lobulated density in the left lobe. He is currently sitting up in a chair. Awake and alert. Somewhat uncooperative. A global safety officer is at the bedside. Continuously taking off his Airvo high flow oxygen device. This is currently set at 50 L and 80% FiO2. Procalcitonin at [place] was 2.40. He has been initiated on DuoNeb and elations, vancomycin and Zosyn. Ativan as needed. White count 14.9. Hemoglobin 13.9. Platelets 146. Sodium 136. Potassium 3.6. Bicarb 29. BUN 25. Creatinine 0.71. Glucose 157. He currently denies any worsening shortness of breath, cough or congestion. He is not clear as to why he was admitted. No family at the bedside. patient was seen today on 09/27/2024, patient remains at hypoxic, remains on Airvo at 50% FiO2 and 50 L flow patient is basically about the same seems to be more comfortable, he had a global safety officer at bedside. As at times he seems to be quite agitated and restless. Ultrasound of the chest was reviewed, may have some debris in the pleural effusion, and there is also lung tissue, hence am not planning thoracentesis at this point. My recommendation to continue antibiotics and diuretics, and continue to monitor, we will decide whether the patient could benefit from thoracentesis or a pigtail catheter placement.WBC count is 15.8 hemoglobin 13.2 basic metabolic profile is normal renal profile is normalLegionella antigen is negative. Procalcitonin at [place] was +2.40 Patient was seen today on 09/28/2024, basically the patient is about the same, remains on Airvo, 50% FiO2 and 50% liters flow, mental status is basically about the same, patient is encephalopathic, reviewed the ultrasound of the chest, patient seems to have loculated pleural effusion and I am recommending a pigtail catheter placement next week by interventional radiology in the meantime continue antibiotics. Continues to have leukocytosis, continues to have relatively normal electrolytes. Patient had elevated procalcitonin level on admission Patient was seen today on 09/29/2024, patient is basically about the same, remains on Airvo, he has a global safety officer at bedside, patient does not seem to verbalize much, remains encephalopathic. I have recommended pigtail catheter placement for his complicated or loculated pleural effusion, this will be done by interventional radiology hopefully tomorrow. In the meantime patient is receiving antibiotics for his pneumonia and parapneumonic effusion. The patient is seen today September 30, 2024 in follow-up on the selective care unit. He is currently resting in bed. Awake and alert. registered respiratory therapist remains at the bedside. He is continued on Airvo high flow oxygen at 45 L and 50% FiO2. Blood cultures revealing no growth thus far. White count 13.3. Hemoglobin 12.5. Platelets 190. Sodium 132. Potassium 3.5. Bicarb 27. BUN 21. Creatinine 0.73. Glucose 173. He is continued on Zosyn. Remains on broncho dilators. Plan is for pigtail catheter placement today for the left-sided loculated pleural effusion. Progress note dated October 01, 2024. 59-year-old male who is seen today in room 376. The patient is currently on Airvo, with settings of 50 L/min, and FiO2 of 85%. The patient is getting sa line at 75 cc an hour. A pigtail catheter was placed on the left side yesterday, by interventional radiology. Count 10.4, hemoglobin 12.6, hematocrit 38.7, and a platelet count of 173,000. Sodium 131, potassium 3.4, chloride 97, CO2 28, BUN 18, creatinine 0.63. Glucose is 245. Calcium 7.6. Progress note dated October 02, 2024. 59-year-old male seen in room 376. The patient is currently on Airvo at 50 L/min with an FiO2 of 80%. He continues on Zosyn. A left pigtail catheter is noted. The patient clinically is doing better. We encouraged him today to use his incentive spirometer, which apparently he was not using. We have asked the nurse to women's lacrosse coach the patient, to use it on a hourly basis. Current labs include white count 11.3, hemoglobin 12.7, hematocrit 38.8, and a normal platelet count of 202,000. Sodium 133, potassium 3.7, chlorides 100, CO2 25, BUN 14, and creatinine 0.62. Glucose is 173. Albumin is 2.3. Calcium is 7.6. Progress note dated October 03, 2024. 59-year-old male who is seen today in room 376. Currently, the patient is on Airvo, with settings of 50 L/min, and an FiO2 of 70%. The patient has had a fluctuating mental status, over the last few days. Currently, white count is 11.3, hemoglobin 13.4, hematocrit 40.3, platelet count 215,000. The patient had a blood gas done, and his pO2 is 55, pCO2 36, pH is 7.51. Glucose is 304. Sodium 132, potassium 4.2, chloride 96, CO2 31, BUN 11, creatinine 0.69. Albumin is 2.3. Culture data has all been negative. Chest x-ray shows a left basilar pleural catheter in place, with decreasing size of moderate size pleural effusion with loculations. Objective - Vital Signs Vital signs: Vital Signs Temp 98.6 F 10/03/24 12:00 Pulse 59 L 10/03/24 12:00 Resp 18 10/03/24 12:00 BP 121/65 10/03/24 12:00 Pulse Ox 96 10/03/24 12:00 FiO2 70 10/03/24 12:00 Intake & Output 10/02/24 10/03/24 10/03/24 18:59 06:59 18:59 Intake Total 358 240 Output Total 14 0 50 Balance 344 0 190 Weight 77.5 kg Intake: Oral 358 240 Output: Chest Tube Drainage 14 0 50 Chest Tube Left 14 0 50 Other: Voiding Method Diaper Diaper Diaper # Voids 2 2 # Bowel Movements 1 - Exam No acute distress, currently on AIRVO. HEENT examination is grossly unremarkable. Mucous membranes are moist. No oral lesions. Neck supple. Full range of motion. No adenopathy thyromegaly or neck vein distention. Cardiovascular examination reveals regular rhythm rate. S1-S2 normal. No S3 or S4. No discernible murmur noted. Lungs reveal scattered bilateral rhonchi. No wheezes. No crackles. Breath sounds are equal bilaterally. Left pigtail catheter in place. Abdomen soft bowel sounds are heard. No masses or tenderness. Extremities are intact. No cyanosis clubbing or edema. Skin is without rash or lesion. Neurologic examination is brief but nonfocal. - Labs CBC & Chem 7: 10/03/24 06:51 10/03/24 06:51 Labs: Abnormal Lab Results - Last 24 Hours (Table) 10/02/24 10/02/24 10/02/24 Range/Units 16:25 18:33 19:50 WBC (3.8-10.6) k/uL RBC (4.30-5.90) m/uL Neutrophils # (1.3-7.7) k/uL ABG pH (7.35-7.45) ABG pO2 (83-108) mmHg ABG HCO3 (21-25) mmol/L ABG Total CO2 (19-24) mmol/L ABG O2 Saturation (94-97) % Sodium (137-145) mmol/L Chloride (98-107) mmol/L Carbon Dioxide (22-30) mmol/L Glucose (74-99) mg/dL POC Glucose (mg/dL) 251 H 280 H 253 H (70-110) mg/dL Calcium (8.4-10.2) mg/dL Alkaline Phosphatase (38-126) U/L Total Protein (6.3-8.2) g/dL Albumin (3.5-5.0) g/dL 10/03/24 10/03/24 10/03/24 Range/Units 05:47 06:51 06:51 WBC 11.3 H (3.8-10.6) k/uL RBC 4.20 L (4.30-5.90) m/uL Neutrophils # 8.7 H (1.3-7.7) k/uL ABG pH (7.35-7.45) ABG pO2 (83-108) mmHg ABG HCO3 (21-25) mmol/L ABG Total CO2 (19-24) mmol/L ABG O2 Saturation (94-97) % Sodium 132 L (137-145) mmol/L Chloride 96 L (98-107) mmol/L Carbon Dioxide 31 H (22-30) mmol/L Glucose 221 H (74-99) mg/dL POC Glucose (mg/dL) 248 H (70-110) mg/dL Calcium 7.9 L (8.4-10.2) mg/dL Alkaline Phosphatase 326 H (38-126) U/L Total Protein 5.4 L (6.3-8.2) g/dL Albumin 2.3 L (3.5-5.0) g/dL 10/03/24 10/03/24 10/03/24 Range/Units 08:30 08:37 11:39 WBC (3.8-10.6) k/uL RBC (4.30-5.90) m/uL Neutrophils # (1.3-7.7) k/uL ABG pH 7.51 H (7.35-7.45) ABG pO2 55 L* (83-108) mmHg ABG HCO3 29 H (21-25) mmol/L ABG Total CO2 30 H (19-24) mmol/L ABG O2 Saturation 92.2 L (94-97) % Sodium (137-145) mmol/L Chloride (98-107) mmol/L Carbon Dioxide (22-30) mmol/L Glucose (74-99) mg/dL POC Glucose (mg/dL) 210 H 304 H (70-110) mg/dL Calcium (8.4-10.2) mg/dL Alkaline Phosphatase (38-126) U/L Total Protein (6.3-8.2) g/dL Albumin (3.5-5.0) g/dL Microbiology - Last 24 Hours (Table) 09/30/24 15:40 Anaerobic Culture - Preliminary Pleural Fluid 09/30/24 15:40 Gram Stain - Preliminary Pleural Fluid Body Fluid Culture - Preliminary 09/28/24 21:28 Blood Culture - Preliminary Blood 09/28/24 21:11 Blood Culture - Preliminary Blood Assessment and Plan Assessment: Acute hypoxemic respiratory failure secondary to suspected bilateral pneumonia, bilateral pleural effusion, possible underlying diastolic congestive heart ghanshyam lure. Loculated left-sided pleural effusion, S/P pigtail catheter placement, September 30, 2024. Leukocytosis secondary to above. Atrial fibrillation with a rapid ventricular response. Schizoaffective disorder. History of bipolar disorder with anxiety/depression. Diabetes mellitus, type II. History of mild intermittent chronic bronchial asthma. History of CVA. Hypertension. Gastroesophageal reflux disease. [facility] resident. Plan: Plan dated October 01, 2024. The patient is seen today in room 376. The patient continues on Airvo, at 50 L/min, with an FiO2 of 85%. The patient is getting saline at 75 cc an hour. A pigtail catheter was placed by interventional radiology, in the left chest. That was done yesterday, September 30. Labs, x-rays, and medications are reviewed. The patient is overall prognosis remains guarded. We will continue t o follow the patient, make recommendations along the way. Plan dated October 02, 2024. The patient is seen today in room 376. The patient continues on Airvo. Settings include 50 L/min with an FiO2 of 80%. The patient continues on Zosyn. No IV fluids. The left pigtail catheter is in place. The patient continues on Zosyn as mentioned. Labs, x-rays, medications are reviewed. Will continue to follow the patient, make recommendations along the way. Clinically, the patient looks relatively stable. We do encourage him to use the incentive spirometer, every hour while awake. Plan dated October 03, 2024. The patient is seen today in room 376. The patient continues on Airvo, with settings of 50 L/min, FiO2 70%. Labs, x-rays, and all medications reviewed. The effusion on the left side, seems to be improving based on today's chest x- ray. The pigtail catheter remains in place. Additional recommendations and suggestions are forthcoming. Prognosis is guarded. We will continue to follow the patient, and make recommendations along the way. The patient does continue on Zosyn. Time with Patient: Less than 30
[2024-10-03 17:10] LABS: Glucose,Whole Blood 224 mg/dL (70-110)
[2024-10-03 20:06] LABS: Glucose,Whole Blood 137 mg/dL (70-110)
[2024-10-03 21:36] LABS: Glucose,Whole Blood 128 mg/dL (70-110)
[2024-10-03 22:51] LABS: ABG Base Excess 7.7 mmol/L; ABG HCO3 31 mmol/L (21-25); ABG Oxygen Saturation 93.4 % (94-97); ABG PCO2 40 mmHg (35-45); ABG PH 7.51 (7.35-7.45); ABG TCO2 33 mmol/L (19-24); Allen Test Performed? Yes
[2024-10-03 23:21] LABS: ABG PO2 59 mmHg (83-108)
--- NOTE | 2024-10-04 00:01 | XR ---
EXAMINATION TYPE: XR chest 1V portable DATE OF EXAM: 10/03/2024 10:19 PM COMPARISON: Chest radiographs from 10/03/2024 CLINICAL INDICATION: Male, 59 years old with history of pna; [facility] TECHNIQUE: XR chest 1V portable Frontal view of the chest. FINDINGS: Lungs/Pleura: Left thoracotomy tube without evidence of pneumothorax. There remains small left pleura l effusion. Haziness the left lung is present. Low lung volumes are present. There is no evidence of right pleural effusion, focal consolidation, or pneumothorax. Pulmonary vascularity: Unremarkable. Heart/mediastinum: Cardiomediastinal silhouette is unremarkable. Musculoskeletal: No acute osseous pathology. IMPRESSION: 1. Low lung volumes present with haziness of lungs possibly representing atelectasis superimposed pn eumonia in the left lung not excluded. 2. Left thoracotomy tube without evidence of pneumothorax. There remains a left pleural effusion. [facility], , 10/03/2024 11:58 PM
[2024-10-04 06:10] LABS: Glucose,Whole Blood 201 mg/dL (70-110)
[2024-10-04 06:57] LABS: Basophils # (A) 0.1 k/uL (0-0.2); Basophils % (A) 1 %; Eosinophils # (A) 0.1 k/uL (0-0.7); Eosinophils % (A) 1 %; HCT 39.5 % (39.0-53.0); HGB 13.4 gm/dL (13.0-17.5); Lymphocytes # (A) 1.1 k/uL (1.0-4.8); Lymphocytes % (A) 11 %; MCH 31.9 pg (25.0-35.0); MCHC 33.9 g/dL (31.0-37.0); MCV 94.3 fL (80.0-100.0); Mean Platelet Volume 7.8; Monocytes # (A) 0.8 k/uL (0-1.0); Monocytes % (A) 8 %; Neutrophils # (A) 7.7 k/uL (1.3-7.7); Neutrophils % (A) 78 %; Platelet Count 216 k/uL (150-450); RBC 4.19 m/uL (4.30-5.90); RDW 13.3 % (11.5-15.5); WBC 9.9 k/uL (3.8-10.6)
[2024-10-04 07:08] LABS: ALT 19 U/L (4-49); AST 33 U/L (17-59); African American GFR (CKD) >90 (>60 ml/min/1.73 sqM); Albumin 2.3 g/dL (3.5-5.0); Alkaline Phosphatase 278 U/L (38-126); Anion Gap 6 mmol/L; Blood Urea Nitrogen 14 mg/dL (9-20); Carbon Dioxide 31 mmol/L (22-30); Chloride 95 mmol/L (98-107); Glucose 214 mg/dL (74-99); Non-African American GFR(CKD) >90 (>60 ml/min/1.73 sqM); Potassium 3.9 mmol/L (3.5-5.1); Sodium 132 mmol/L (137-145); Total Bilirubin 0.5 mg/dL (0.2-1.3); Total Protein 5.5 g/dL (6.3-8.2)
[2024-10-04 11:34] LABS: Glucose,Whole Blood 308 mg/dL (70-110)
[2024-10-04 12:32] VITALS: BMI 24.5
--- NOTE | 2024-10-04 13:00 | P.PN ---
Subjective Progress Note Date: 10/04/24 Principal diagnosis: Reason for follow-up is leukocytosis and pneumonia Patient is a 59-year-old male with a past medical history significant for Schizophrenia resident of adult foster care was sent to the [facility] concerning for increasing shortness of breath with subsequent worsening of his symptoms with the patient has been transferred to [facility] concerning for pneumonia. On today's evaluation that is 10/04/2024, the patient did have improvement with a temperature of 99.2 F patient is still requiring high flow nasal cannula airflow with 85% FiO2 denies any worsening shortness of breath no chest pain no vomiting or diarrhea has been reported. Patient white count normalized to 9.9 creatinine 0.61 cultures are currently pending Objective - Vital Signs Vital signs: Vital Signs Temp 98.8 F 10/04/24 08:00 Pulse 62 10/04/24 08:00 Resp 20 10/04/24 08:00 BP 144/78 10/04/24 08:00 Pulse Ox 97 10/04/24 08:00 FiO2 66 10/04/24 09:31 Intake & Output 10/03/24 10/04/24 10/04/24 18:59 06:59 18:59 Intake Total 360 1080 Output Total 50 520 0 Balance 310 560 0 Weight 73 kg Intake: Oral 360 1080 Output: Chest Tube Drainage 50 0 0 Chest Tube Left 50 0 0 Urine 520 Other: Voiding Method Diaper Diaper Diaper # Voids 2 - Exam GENERAL DESCRIPTION: Middle-age male lying in bed in no distress RESPIRATORY SYSTEM: Unlabored breathing , decreased breath sounds at bases HEART: S1 S2 regular rate and rhythm , ABDOMEN: Soft , no tenderness EXTREMITIES: No edema feet - Labs CBC & Chem 7: 10/04/24 06:28 10/04/24 06:28 Labs: Abnormal Lab Results - Last 24 Hours (Table) 10/03/24 10/03/24 10/03/24 Range/Units 11:39 17:08 20:04 RBC (4.30-5.90) m/uL ABG pH (7.35-7.45) ABG pO2 (83-108) mmHg ABG HCO3 (21-25) mmol/L ABG Total CO2 (19-24) mmol/L ABG O2 Saturation (94-97) % Hemoglobin (13.0-17.5) gm/dL Sodium (137-145) mmol/L Chloride (98-107) mmol/L Carbon Dioxide (22-30) mmol/L Creatinine (0.66-1.25) mg/dL Glucose (74-99) mg/dL POC Glucose (mg/dL) 304 H 224 H 137 H (70-110) mg/dL Calcium (8.4-10.2) mg/dL Alkaline Phosphatase (38-126) U/L Total Protein (6.3-8.2) g/dL Albumin (3.5-5.0) g/dL 10/03/24 10/03/24 10/04/24 Range/Units 21:35 22:51 06:09 RBC (4.30-5.90) m/uL ABG pH 7.51 H (7.35-7.45) ABG pO2 59 L* (83-108) mmHg ABG HCO3 31 H (21-25) mmol/L ABG Total CO2 33 H (19-24) mmol/L ABG O2 Saturation 93.4 L (94-97) % Hemoglobin 11.9 L (13.0-17.5) gm/dL Sodium (137-145) mmol/L Chloride (98-107) mmol/L Carbon Dioxide (22-30) mmol/L Creatinine (0.66-1.25) mg/dL Glucose (74-99) mg/dL POC Glucose (mg/dL) 128 H 201 H (70-110) mg/dL Calcium (8.4-10.2) mg/dL Alkaline Phosphatase (38-126) U/L Total Protein (6.3-8.2) g/dL Albumin (3.5-5.0) g/dL 10/04/24 10/04/24 Range/Units 06:28 06:28 RBC 4.19 L (4.30-5.90) m/uL ABG pH (7.35-7.45) ABG pO2 (83-108) mmHg ABG HCO3 (21-25) mmol/L ABG Total CO2 (19-24) mmol/L ABG O2 Saturation (94-97) % Hemoglobin (13.0-17.5) gm/dL Sodium 132 L (137-145) mmol/L Chloride 95 L (98-107) mmol/L Carbon Dioxide 31 H (22-30) mmol/L Creatinine 0.61 L (0.66-1.25) mg/dL Glucose 214 H (74-99) mg/dL POC Glucose (mg/dL) (70-110) mg/dL Calcium 8.0 L (8.4-10.2) mg/dL Alkaline Phosphatase 278 H (38-126) U/L Total Protein 5.5 L (6.3-8.2) g/dL Albumin 2.3 L (3.5-5.0) g/dL Microbiology - Last 24 Hours (Table) 09/30/24 15:40 Gram Stain - Preliminary Pleural Fluid Body Fluid Culture - Preliminary Assessment and Plan (1) Leukocytosis Current Visit: Yes Status: Acute Code(s): D72.829 - ELEVATED WHITE BLOOD CELL COUNT, UNSPECIFIED SNOMED Code(s): 596147951 (2) Pneumonia Current Visit: Yes Status: Acute Code(s): J18.9 - PNEUMONIA, UNSPECIFIED ORGANISM SNOMED Code(s): 030280271 Plan: 1patient presenting to the hospital for evaluation of increasing shortness of breath in this patient who did have evidence of bilateral effusion and basilar atelectasis more on the left side patient did have elevated white count apparently he did have elevated procalcitonin at the [facility], concerning for possible pneumonia question of community-acquired versus gram-ne gative less likely MRSA 2- MRSA nasal screen has been negative blood cultures are pending sputum not collected 3patient did have chest ultrasound concerning for 8 cm loculated left effusion, patient status post IR drainage of this fluid chest tube placement and cultures currently pending 3-patient did have improvement in his fever pattern and the patient white count normalized patient mention feeling better currently being treated with Zosyn while waiting for the culture to finalize Dictation was produced using [employer] dictation software. please excuse any grammatical, word or spelling errors. Time with Patient: Less than 30
--- NOTE | 2024-10-04 13:00 | P.PN ---
Subjective Progress Note Date: 10/03/24 Principal diagnosis: Reason for follow-up is leukocytosis and pneumonia Patient is a 59-year-old male with a past medical history significant for Schizophrenia resident of adult foster care was sent to the [facility] concerning for increasing shortness of breath with subsequent worsening of his symptoms with the patient has been transferred to [facility] concerning for pneumonia. On today's evaluation that is 10/03/2024,the patient did spike a fever of 102.8 F this morning, the patient however mention feeling slightly better he is breathing comfortably denies any worsening left-sided chest pain no cough no vomiting or diarrhea.Patient still requiring high flow nasal cannula oxygen Airvo Patient white count is 11.3, creatinine 0.69 culture currently pending Objective - Vital Signs Vital signs: Vital Signs Temp 98.6 F 10/03/24 12:00 Pulse 59 L 10/03/24 12:00 Resp 18 10/03/24 12:00 BP 121/65 10/03/24 12:00 Pulse Ox 98 10/03/24 15:15 FiO2 70 10/03/24 15:15 Intake & Output 10/02/24 10/03/24 10/03/24 18:59 06:59 18:59 Intake Total 358 240 Output Total 14 0 50 Balance 344 0 190 Weight 77.5 kg Intake: Oral 358 240 Output: Chest Tube Drainage 14 0 50 Chest Tube Left 14 0 50 Other: Voiding Method Diaper Diaper Diaper # Voids 2 2 # Bowel Movements 1 - Exam GENERAL DESCRIPTION: Middle-age male lying in bed in no distress RESPIRATORY SYSTEM: Unlabored breathing , decreased breath sounds at bases HEART: S1 S2 regular rate and rhythm , ABDOMEN: Soft , no tenderness EXTREMITIES: No edema feet - Labs CBC & Chem 7: 10/04/24 06:28 10/04/24 06:28 Labs: Abnormal Lab Results - Last 24 Hours (Table) 10/02/24 10/02/24 10/02/24 Range/Units 16:25 18:33 19:50 WBC (3.8-10.6) k/uL RBC (4.30-5.90) m/uL Neutrophils # (1.3-7.7) k/uL ABG pH (7.35-7.45) ABG pO2 (83-108) mmHg ABG HCO3 (21-25) mmol/L ABG Total CO2 (19-24) mmol/L ABG O2 Saturation (94-97) % Sodium (137-145) mmol/L Chloride (98-107) mmol/L Carbon Dioxide (22-30) mmol/L Glucose (74-99) mg/dL POC Glucose (mg/dL) 251 H 280 H 253 H (70-110) mg/dL Calcium (8.4-10.2) mg/dL Alkaline Phosphatase (38-126) U/L Total Protein (6.3-8.2) g/dL Albumin (3.5-5.0) g/dL 10/03/24 10/03/24 10/03/24 Range/Units 05:47 06:51 06:51 WBC 11.3 H (3.8-10.6) k/uL RBC 4.20 L (4.30-5.90) m/uL Neutrophils # 8.7 H (1.3-7.7) k/uL ABG pH (7.35-7.45) ABG pO2 (83-108) mmHg ABG HCO3 (21-25) mmol/L ABG Total CO2 (19-24) mmol/L ABG O2 Saturation (94-97) % Sodium 132 L (137-145) mmol/L Chloride 96 L (98-107) mmol/L Carbon Dioxide 31 H (22-30) mmol/L Glucose 221 H (74-99) mg/dL POC Glucose (mg/dL) 248 H (70-110) mg/dL Calcium 7.9 L (8.4-10.2) mg/dL Alkaline Phosphatase 326 H (38-126) U/L Total Protein 5.4 L (6.3-8.2) g/dL Albumin 2.3 L (3.5-5.0) g/dL 10/03/24 10/03/24 10/03/24 Range/Units 08:30 08:37 11:39 WBC (3.8-10.6) k/uL RBC (4.30-5.90) m/uL Neutrophils # (1.3-7.7) k/uL ABG pH 7.51 H (7.35-7.45) ABG pO2 55 L* (83-108) mmHg ABG HCO3 29 H (21-25) mmol/L ABG Total CO2 30 H (19-24) mmol/L ABG O2 Saturation 92.2 L (94-97) % Sodium (137-145) mmol/L Chloride (98-107) mmol/L Carbon Dioxide (22-30) mmol/L Glucose (74-99) mg/dL POC Glucose (mg/dL) 210 H 304 H (70-110) mg/dL Calcium (8.4-10.2) mg/dL Alkaline Phosphatase (38-126) U/L Total Protein (6.3-8.2) g/dL Albumin (3.5-5.0) g/dL Microbiology - Last 24 Hours (Table) 09/30/24 15:40 Anaerobic Culture - Preliminary Pleural Fluid 09/30/24 15:40 Gram Stain - Preliminary Pleural Fluid Body Fluid Culture - Preliminary 09/28/24 21:28 Blood Culture - Preliminary Blood 09/28/24 21:11 Blood Culture - Preliminary Blood Assessment and Plan (1) Leukocytosis Current Visit: Yes Status: Acute Code(s): D72.829 - ELEVATED WHITE BLOOD CELL COUNT, UNSPECIFIED SNOMED Code(s): 765390980 (2) Pneumonia Current Visit: Yes Status: Acute Code(s): J18.9 - PNEUMONIA, UNSPECIFIED ORGANISM SNOMED Code(s): 929058695 Plan: 1patient presenting to the hospital for evaluation of increasing shortness of breath in this patient who did have evidence of bilateral effusion and basilar atelectasis more on the left side patient did have elevated white count apparently he did have elevated procalcitonin at the [facility], concerning for possible pneumonia question of community-acquired versus gram- negative less likely MRSA 2- MRSA nasal screen has been negative blood cultures are pending sputum not collected 3patient did have chest ultrasound concerning for 8 cm loculated left effusion, patient status post IR drainage of this fluid chest tube placement and cultures currently pending 3-patient white count mildly elevated still running a fever he is slightly concerning however patient mention feeling better, patient will be treated with Zosyn while waiting for the culture to finalize, Dictation was produced using [employer] dictation software. please excuse any gramm atical, word or spelling errors. Time with Patient: Less than 30
--- NOTE | 2024-10-04 14:20 | P.PN ---
Subjective Progress Note Date: 10/04/24 patient is a 59-year-old gentleman with past medical history significant for schizophrenia who is a resident of a adult foster care was transferred to [facility] from [facility] for worsening respiratory status. Patient initially presented to [facility] for shortness of breath and c hest pain for 4 to 5 days. According to medical records, patient was complaining of shortness of breath on exertion and chest pain that was pleuritic in nature worsened by taking deep breaths. Patient was also complaining of lethargy and weakness. There is no complaint of cough. There was no complaint of fever or chills. Patient was worked up in [facility], initial CT chest done showed bilateral lower lobe consolidation greater on the left suspicious for pneumonia. Patient was admitted there and was started on IV antibiotics. Patient also had 2D echo done that showed normal LV systolic function with LVEF of 66 65%, there was some diastolic dysfunction present. No valvular pathology seen. While at [facility], patient respiratory status worsened, patient was requiring heated high flow. Because of respiratory status, transfer was requested and patient was transferred to [facility] Patient admitted to internal medicine service 09/27. Patient seen and examined. Patient is doing better compared to yesterday, patient did not answer many of my questions. 09/28. Patient seen and examined. Patient continues to be on Airvo. 09/29. Patient seen examined. Patient was agitated overnight and received Ativan. Continues to require heated high flow. 09/30. Patient seen and examined. Patient is not the best historian, not willing to answer any question. Patient being scheduled for IR guided pigtail catheter placement 10/01. Patient seen and examined. vital signs stable. Patient had IR guided pigtail catheter placement on left side. Patient lethargic, complaining of pain at the catheter site 10/02/2024. Patient seen and examined. Patient is awake, more responsive compared to yesterday. Patient states that he wants his tube to come out. Denies any chest pain 10/03/2024. Patient seen and examined. Patient had fever overnight 100.2. Currently on high flow Airvo at 70% FiO2, patient had A team this morning for shortness of breath. Currently doing better. 10/04. Patient seen and examined. Patient had low-grade fever overnight. Patient continues to have episodes when he becomes lethargic mostly at night but as the day goes by he becomes more alert. REVIEW OF SYSTEMS: Denies any chest pain. Denies any shortness of breath at rest. Continues to have poor appetite. PHYSICAL EXAMINATION: GENERAL: The patient is lethargic , ill looking HEENT: Pupils are round and equally reacting to light. EOMI. No scleral icterus. No conjunctival pallor. Normocephalic, atraumatic. No pharyngeal erythema. No thyromegaly. CARDIOVASCULAR: S1 and S2 present. No murmurs, rubs, or gallops. PULMONARY: Coarse breath sound bilaterally, crackles audible, left-sided pigtail catheter seen ABDOMEN: Soft, nontender, nondistended, normoactive bowel sounds. No palpable organomegaly. MUSCULOSKELETAL: No joint swelling or deformity. EXTREMITIES: No cyanosis, clubbing, or pedal edema. NEUROLOGICAL: Gross neurological examination did not reveal any focal deficits. SKIN: No rashes. Assessment and plan Acute hypoxemic respiratory failure Bilateral pleural effusions Bacterial pneumonia Paroxysmal A-fib with RVR ruled out Sinus tachycardia Leukocytosis secondary to above Schizoaffective disorder History of bipolar disorder with anxiety/depression Diabetes mellitus, type II History of CVA Hypertension Gastroesophageal reflux disease Monitor vital signs Monitor CBC Monitor CMP Continue ox supplementation aggressive bronchopulmonary hygiene Follow-up on blood cultures Status post IR guided pigtail catheter placement on left side Continue breathing treatments Continue IV Zosyn Continue Lopressor and Cardizem Pulmonology following, ID following Cardiology evaluated, recommend beta-blockers, no need for repeating 2D echo Will consult psych to evaluate his psych medication Labs and medication were reviewed.. Continue same treatment. Continue with symptomatic treatment. Resume home medication. Monitor labs and vitals. DVT and GI prophylaxis. Further recommendations as per clinical course of the patient Dictation was produced using [employer] dictation software. please excuse any grammatical, word or spelling errors. Objective - Vital Signs Vital signs: Vital Signs Temp 98.8 F 10/04/24 08:00 Pulse 62 10/04/24 08:00 Resp 20 10/04/24 08:00 BP 144/78 10/04/24 08:00 Pulse Ox 97 10/04/24 08:00 FiO2 66 10/04/24 09:31 Intake & Output 10/03/24 10/04/24 10/04/24 18:59 06:59 18:59 Intake Total 360 1080 Output Total 50 520 0 Balance 310 560 0 Weight 73 kg Intake: Oral 360 1080 Output: Chest Tube Drainage 50 0 0 Chest Tube Left 50 0 0 Urine 520 Other: Voiding Method Diaper Diaper Diaper # Voids 2 - Labs CBC & Chem 7: 10/04/24 06:28 10/04/24 06:28 Labs: Abnormal Lab Results - Last 24 Hours (Table) 10/03/24 10/03/24 10/03/24 Range/Units 11:39 17:08 20:04 RBC (4.30-5.90) m/uL ABG pH (7.35-7.45) ABG pO2 (83-108) mmHg ABG HCO3 (21-25) mmol/L ABG Total CO2 (19-24) mmol/L ABG O2 Saturation (94-97) % Hemoglobin (13.0-17.5) gm/dL Sodium (137-145) mmol/L Chloride (98-107) mmol/L Carbon Dioxide (22-30) mmol/L Creatinine (0.66-1.25) mg/dL Glucose (74-99) mg/dL POC Glucose (mg/dL) 304 H 224 H 137 H (70-110) mg/dL Calcium (8.4-10.2) mg/dL Alkaline Phosphatase (38-126) U/L Total Protein (6.3-8.2) g/dL Albumin (3.5-5.0) g/dL 10/03/24 10/03/24 10/04/24 Range/Units 21:35 22:51 06:09 RBC (4.30-5.90) m/uL ABG pH 7.51 H (7.35-7.45) ABG pO2 59 L* (83-108) mmHg ABG HCO3 31 H (21-25) mmol/L ABG Total CO2 33 H (19-24) mmol/L ABG O2 Saturation 93.4 L (94-97) % Hemoglobin 11.9 L (13.0-17.5) gm/dL Sodium (137-145) mmol/L Chloride (98-107) mmol/L Carbon Dioxide (22-30) mmol/L Creatinine (0.66-1.25) mg/dL Glucose (74-99) mg/dL POC Glucose (mg/dL) 128 H 201 H (70-110) mg/dL Calcium (8.4-10.2) mg/dL Alkaline Phosphatase (38-126) U/L Total Protein (6.3-8.2) g/dL Albumin (3.5-5.0) g/dL 10/04/24 10/04/24 Range/Units 06:28 06:28 RBC 4.19 L (4.30-5.90) m/uL ABG pH (7.35-7.45) ABG pO2 (83-108) mmHg ABG HCO3 (21-25) mmol/L ABG Total CO2 (19-24) mmol/L ABG O2 Saturation (94-97) % Hemoglobin (13.0-17.5) gm/dL Sodium 132 L (137-145) mmol/L Chloride 95 L (98-107) mmol/L Carbon Dioxide 31 H (22-30) mmol/L Creatinine 0.61 L (0.66-1.25) mg/dL Glucose 214 H (74-99) mg/dL POC Glucose (mg/dL) (70-110) mg/dL Calcium 8.0 L (8.4-10.2) mg/dL Alkaline Phosphatase 278 H (38-126) U/L Total Protein 5.5 L (6.3-8.2) g/dL Albumin 2.3 L (3.5-5.0) g/dL Microbiology - Last 24 Hours (Table) 09/30/24 15:40 Gram Stain - Preliminary Pleural Fluid Body Fluid Culture - Preliminary
--- NOTE | 2024-10-04 14:49 | P.PN ---
Subjective Progress Note Date: 10/04/24 Principal diagnosis: Pneumonia. This is a 59-year-old male patient with a known history of schizophrenia and resides in a adult foster care setting who had been brought into [facility] with increasing shortness of breath on September 22, 2024. He was requiring Airvo high flow oxygen and not showing much improvement and was transferred here direct admit to the selective care unit today. Chest x-ray here reveals bilateral pleural effusion and basilar infiltrates left greater than right. Correlate for underlying CHF. Possible pneumonia. Large lobulated density in the left lobe. He is currently sitting up in a chair. Awake and alert. Somewhat uncooperative. A security public safety officer is at the bedside. Continuously taking off his Airvo high flow oxygen device. This is currently set at 50 L and 80% FiO2. Procalcitonin at [place] was 2.40. He has been initiated on DuoNeb and elations, vancomycin and Zosyn. Ativan as needed. White count 14.9. Hemoglobin 13.9. Platelets 146. Sodium 136. Potassium 3.6. Bicarb 29. BUN 25. Creatinine 0.71. Glucose 157. He currently denies any worsening shortness of breath, cough or congestion. He is not clear as to why he was admitted. No family at the bedside. patient was seen today on 09/27/2024, patient remains at hypoxic, remains on Airvo at 50% FiO2 and 50 L flow patient is basically about the same seems to be more comfortable, he had a security public safety officer at bedside. As at times he seems to be quite agitated and restless. Ultrasound of the chest was reviewed, may have some debris in the pleural effusion, and there is also lung tissue, hence am not planning thoracentesis at this point. My recommendation to continue antibiotics and diuretics, and continue to monitor, we will decide whether the patient could benefit from thoracentesis or a pigtail catheter placement.WBC count is 15.8 hemoglobin 13.2 basic metabolic profile is normal renal profile is normalLegionella antigen is negative. Procalcitonin at [place] was +2.40 Patient was seen today on 09/28/2024, basically the patient is about the same, remains on Airvo, 50% FiO2 and 50% liters flow, mental status is basically about the same, patient is encephalopathic, reviewed the ultrasound of the chest, patient seems to have loculated pleural effusion and I am recommending a pigtail catheter placement next week by interventional radiology in the meantime continue antibiotics. Continues to have leukocytosis, continues to have relatively normal electrolytes. Patient had elevated procalcitonin level on admission Patient was seen today on 09/29/2024, patient is basically about the same, remains on Airvo, he has a security public safety officer at bedside, patient does not seem to verbalize much, remains encephalopathic. I have recommended pigtail catheter placement for his complicated or loculated pleural effusion, this will be done by interventional radiology hopefully tomorrow. In the meantime patient is receiving antibiotics for his pneumonia and parapneumonic effusion. The patient is seen today September 30, 2024 in follow-up on the selective care unit. He is currently resting in bed. Awake and alert. tester compressed gases remains at the bedside. He is continued on Airvo high flow oxygen at 45 L and 50% FiO2. Blood cultures revealing no growth thus far. White count 13.3. Hemoglobin 12.5. Platelets 190. Sodium 132. Potassium 3.5. Bicarb 27. BUN 21. Creatinine 0.73. Glucose 173. He is continued on Zosyn. Remains on broncho dilators. Plan is for pigtail catheter placement today for the left-sided loculated pleural effusion. Progress note dated October 01, 2024. 59-year-old male who is seen today in room 376. The patient is currently on Airvo, with settings of 50 L/min, and FiO2 of 85%. The patient is getting sa line at 75 cc an hour. A pigtail catheter was placed on the left side yesterday, by interventional radiology. Count 10.4, hemoglobin 12.6, hematocrit 38.7, and a platelet count of 173,000. Sodium 131, potassium 3.4, chloride 97, CO2 28, BUN 18, creatinine 0.63. Glucose is 245. Calcium 7.6. Progress note dated October 02, 2024. 59-year-old male seen in room 376. The patient is currently on Airvo at 50 L/min with an FiO2 of 80%. He continues on Zosyn. A left pigtail catheter is noted. The patient clinically is doing better. We encouraged him today to use his incentive spirometer, which apparently he was not using. We have asked the nurse to hitting coach the patient, to use it on a hourly basis. Current labs include white count 11.3, hemoglobin 12.7, hematocrit 38.8, and a normal platelet count of 202,000. Sodium 133, potassium 3.7, chlorides 100, CO2 25, BUN 14, and creatinine 0.62. Glucose is 173. Albumin is 2.3. Calcium is 7.6. Progress note dated October 03, 2024. 59-year-old male who is seen today in room 376. Currently, the patient is on Airvo, with settings of 50 L/min, and an FiO2 of 70%. The patient has had a fluctuating mental status, over the last few days. Currently, white count is 11.3, hemoglobin 13.4, hematocrit 40.3, platelet count 215,000. The patient had a blood gas done, and his pO2 is 55, pCO2 36, pH is 7.51. Glucose is 304. Sodium 132, potassium 4.2, chloride 96, CO2 31, BUN 11, creatinine 0.69. Albumin is 2.3. Culture data has all been negative. Chest x-ray shows a left basilar pleural catheter in place, with decreasing size of moderate size pleural effusion with loculations. Progress note dated October 04, 2024. 59-year-old male who is seen today in room 376. He is awake and alert. He still on Airvo, with settings of 50 L/min, and a FiO2 of 65%. The patient does not manifest any signs or symptoms of respiratory difficulty or distress. He does continue on Zosyn. Current labs include a white count 9.9, hemoglobin 13.4, hematocrit 39.5, and a platelet count of 216,000. Sodium 132, potassium 3.9, chlorides 95, CO2 31, BUN 14, and creatinine 0.61. Glucose is 308. Albumin is 2.3. Cultures thus far are negative. Chest x-ray from October 03, has been reviewed. Objective - Vital Signs Vital signs: Vital Signs Temp 99.1 F 10/04/24 12:00 Pulse 63 10/04/24 12:00 Resp 20 10/04/24 12:00 BP 141/71 10/04/24 12:00 Pulse Ox 93 L 10/04/24 12:47 FiO2 66 10/04/24 12:47 Intake & Output 10/03/24 10/04/24 10/04/24 18:59 06:59 18:59 Intake Total 360 1080 Output Total 50 520 0 Balance 310 560 0 Weight 73 kg 73 kg Intake: Oral 360 1080 Output: Chest Tube Drainage 50 0 0 Chest Tube Left 50 0 0 Urine 520 Other: Voiding Method Diaper Diaper Diaper # Voids 2 - Exam No acute distress, currently on AIRVO. HEENT examination is grossly unremarkable. Mucous membranes are moist. No oral lesions. Neck supple. Full range of motion. No adenopathy thyromegaly or neck vein distention. Cardiovascular examination reveals regular rhythm rate. S1-S2 normal. No S3 or S4. No discernible murmur noted. Lungs reveal scattered bilateral rhonchi. No wheezes. No crackles. Breath sounds are equal bilaterally. Left pigtail catheter in place. Abdomen soft bowel sounds are heard. No masses or tenderness. Extremities are intact. No cyanosis clubbing or edema. Skin is without rash or lesion. Neurologic examination is brief but nonfocal. - Labs CBC & Chem 7: 10/04/24 06:28 10/04/24 06:28 Labs: Abnormal Lab Results - Last 24 Hours (Table) 10/03/24 10/03/24 10/03/24 Range/Units 17:08 20:04 21:35 RBC (4.30-5.90) m/uL ABG pH (7.35-7.45) ABG pO2 (83-108) mmHg ABG HCO3 (21-25) mmol/L ABG Total CO2 (19-24) mmol/L ABG O2 Saturation (94-97) % Hemoglobin (13.0-17.5) gm/dL Sodium (137-145) mmol/L Chloride (98-107) mmol/L Carbon Dioxide (22-30) mmol/L Creatinine (0.66-1.25) mg/dL Glucose (74-99) mg/dL POC Glucose (mg/dL) 224 H 137 H 128 H (70-110) mg/dL Calcium (8.4-10.2) mg/dL Alkaline Phosphatase (38-126) U/L Total Protein (6.3-8.2) g/dL Albumin (3.5-5.0) g/dL 10/03/24 10/04/24 10/04/24 Range/Units 22:51 06:09 06:28 RBC 4.19 L (4.30-5.90) m/uL ABG pH 7.51 H (7.35-7.45) ABG pO2 59 L* (83-108) mmHg ABG HCO3 31 H (21-25) mmol/L ABG Total CO2 33 H (19-24) mmol/L ABG O2 Saturation 93.4 L (94-97) % Hemoglobin 11.9 L (13.0-17.5) gm/dL Sodium (137-145) mmol/L Chloride (98-107) mmol/L Carbon Dioxide (22-30) mmol/L Creatinine (0.66-1.25) mg/dL Glucose (74-99) mg/dL POC Glucose (mg/dL) 201 H (70-110) mg/dL Calcium (8.4-10.2) mg/dL Alkaline Phosphatase (38-126) U/L Total Protein (6.3-8.2) g/dL Albumin (3.5-5.0) g/dL 10/04/24 10/04/24 Range/Units 06:28 11:33 RBC (4.30-5.90) m/uL ABG pH (7.35-7.45) ABG pO2 (83-108) mmHg ABG HCO3 (21-25) mmol/L ABG Total CO2 (19-24) mmol/L ABG O2 Saturation (94-97) % Hemoglobin (13.0-17.5) gm/dL Sodium 132 L (137-145) mmol/L Chloride 95 L (98-107) mmol/L Carbon Dioxide 31 H (22-30) mmol/L Creatinine 0.61 L (0.66-1.25) mg/dL Glucose 214 H (74-99) mg/dL POC Glucose (mg/dL) 308 H (70-110) mg/dL Calcium 8.0 L (8.4-10.2) mg/dL Alkaline Phosphatase 278 H (38-126) U/L Total Protein 5.5 L (6.3-8.2) g/dL Albumin 2.3 L (3.5-5.0) g/dL Microbiology - Last 24 Hours (Table) 09/28/24 21:28 Blood Culture - Final Blood 09/28/24 21:11 Blood Culture - Final Blood 09/30/24 15:40 Gram Stain - Preliminary Pleural Fluid Body Fluid Culture - Preliminary Assessment and Plan Assessment: Acute hypoxemic respiratory failure secondary to suspected bilateral pneumonia, bilateral pleural effusion, possible underlying diastolic congestive heart failure. Loculated left-sided pleural effusion, S/P pigtail catheter placement, September 30, 2024. Leukocytosis secondary to above. Atrial fibrillation with a rapid ventricular response. Schizoaffective disorder. History of bipolar disorder with anxiety/depression. Diabetes mellitus, type II. History of mild intermittent chronic bronchial asthma. History of CVA. Hypertension. Gastroesophageal reflux disease. [facility] resident. Plan: Plan dated October 01, 2024. The patient is seen today in room 376. The patient continues on Airvo, at 50 L/min, with an FiO2 of 85%. The patient is getting saline at 75 cc an hour. A pigtail catheter was placed by interventional radiology, in the left chest. That was done yesterday, September 30. Labs, x-rays, and medications are reviewed. The patient is overall prognosis remains guarded. We will continue to follow the patient, make recommendations along the way. Plan dated October 02, 2024. The patient is seen today in room 376. The patient continues on Airvo. Settings include 50 L/min with an FiO2 of 80%. The patient continues on Zosyn. No IV fluids. The left pigtail catheter is in place. The patient continues on Zosyn as mentioned. Labs, x-rays, medications are reviewed. Will continue to follow the patient, make recommendations along the way. Clinically, the patient looks relatively stable. We do encourage him to use the incentive spirometer, every hour while awake. Plan dated October 03, 2024. The patient is seen today in room 376. The patient continues on Airvo, with set tings of 50 L/min, FiO2 70%. Labs, x-rays, and all medications reviewed. The effusion on the left side, seems to be improving based on today's chest x-ray. The pigtail catheter remains in place. Additional recommendations and suggestions are forthcoming. Prognosis is guarded. We will continue to follow the patient, and make recommendations along the way. The patient does continue on Zosyn. Plan dated October 04, 2024. The patient is seen today in room 376. The patient continues on Airvo, and also on IV Zosyn. Labs, x-rays, and medications are reviewed. His chest x-ray from October 03 has been reviewed. Patient's overall prognosis remains guarded. We will continue to follow the patient, make recommendations where appropriate. The patient has a pigtail catheter in place, on the left side. Time with Patient: Less than 30
--- NOTE | 2024-10-04 16:26 | P.GSCN ---
History of Present Illness Consult date: 10/04/24 Reason for Consult: Persistent left pleural effusion Requesting physician: Edwar Ballesteros History of present illness: This is a 59-year-old gentleman who follows with Dr. Mark Vazquez on an outpatient basis for his primary care. He has a past medical history significant for asthma, COPD, CVA, diabetes mellitus type 2, hypertension, thyroid disorder, GERD, anxiety, depression, bipolar disorder, and schizoaffective disorder. The patient is a poor historian and most of the history was obtained from the patient's nurse and from his chart. According to the patient's chart the patient presented to [facility] on September 22, 2024 with complaints of progressive shortness of breath. He was requiring high flow oxygen and not showing much improvement with treatment and was subsequently transferred here to [facility] for further evaluation and treatment recommendations. On admission a chest x-ray was completed which revealed bilateral pleural effusions and basilar infiltrate greater on the left, and from the chest x-ray report it said correlate for CHF or possible pneumonia. It also revealed a large lobulated density in the left lobe. On admission to the hospital the patient was afebrile but on 09/28/2004 the patient spiked a fever of 102.7 F. According to the patient's chart he lives at an adult foster senior living. A CT scan of the chest was completed at [facility] which sh owed bilateral lower lobe consolidation greater on the left suspicious for pneumonia. The patient also had a transthoracic 2D echocardiogram completed which demonstrated a normal left ventricular systolic function with an ejection fraction of 65% and no valvular pathology was seen. On 09/27/2024 an ultrasound of the chest was completed which showed an 8.8 cm loculated pocket. On 10/01/2024 the patient underwent a placement of a left chest pigtail catheter placed by interventional radiology. According to the patient's nurse today he has only drained around 180 mL of serous colored fluid since the pigtail catheter has been placed. Currently there is 20 mL of serous drainage in the Pleur-evac drainage system. A chest x-ray was completed on October 03, 2024 which showed a left thoracotomy tube in place without evidence of pneumothorax and a left pleural effusion. It also demonstrated low lung volumes present with haziness of lungs possibly representing atelectasis superimposed pneumonia in the left lung not excluded. Due to the patient's persistent left pleural effusion a consult was placed to cardiothoracic surgery for further evaluation and treatment recommendations. Review of Systems A review of systems could not be completed at this time as the patient is not answering questions. Past Medical History Past Medical History: Asthma, COPD, CVA/TIA, Diabetes Mellitus, Hypertension, Thyroid Disorder Additional Past Medical History / Comment(s): Tremors History of Any Multi-Drug Resistant Organisms: None Reported Past Surgical History: Cholecystectomy Additional Past Surgical History / Comment(s): LEFT EYE Past Anesthesia/Blood Transfusion Reactions: No Reported Reaction Past Psychological History: Anxiety, Bipolar, Depression, Schizoaffective Disorder Smoking Status: Current every day smoker Past Alcohol Use History: None Reported Past Drug Use History: None Reported - Past Family History Father Family Medical History: Unable to Obtain Medications and Allergies Home Medications Medication Instructions Recorded Confirmed Type Acetaminophen [Tylenol Arthritis] 650 mg PO Q8H PRN 12/02/19 09/26/24 History Aspirin EC [Ecotrin Low Dose] 81 mg PO DAILY 11/06/23 09/26/24 History Diltiazem Cd [Cardizem CD] 120 mg PO DAILY 11/06/23 09/26/24 History Diltiazem Cd [Cardizem CD] 240 mg PO DAILY 11/06/23 09/26/24 History Metoprolol Tartrate [Lopressor] 25 mg PO BID 11/06/23 09/26/24 History Pantoprazole [Protonix] 40 mg PO DAILY 11/06/23 09/26/24 History Folic Acid 1 mg PO DAILY #30 tab 11/08/23 09/26/24 Rx [place]-3 Acid Ethyl Esters [Lovaza] 1 gm PO DAILY 06/19/24 09/26/24 History Divalproex ER [Depakote ER] 500 mg PO TID 09/26/24 09/26/24 History Insulin Regular, Human [NovoLIN R 16 units SQ W/SUPPER 09/26/24 09/26/24 History Flexpen] QUEtiapine FUMARATE [SEROquel] 600 mg PO HS 09/26/24 09/26/24 History amantadine HCL [Symmetrel] 100 mg PO DAILY 09/26/24 09/26/24 History traZODone HCL [Desyrel] 50 mg PO HS PRN 09/26/24 09/26/24 History Allergies Allergy/AdvReac Type Severity Reaction Status Date / Time amlodipine Allergy Unknown Verified 09/26/24 10:42 aripiprazole [From Abilify] Allergy Unknown Verified 09/26/24 10:42 atorvastatin [From Lipitor] Allergy Unknown Verified 09/26/24 10:42 benztropine [From Cogentin] Allergy Unknown Verified 09/26/24 10:42 chlorpromazine Allergy Unknown Verified 09/26/24 10:42 [From Thorazine] fluphenazine [From Prolixin] Allergy Unknown Verified 09/26/24 10:42 gabapentin Allergy Unknown Verified 09/26/24 10:42 haloperidol [From Haldol] Allergy Unknown Verified 09/26/24 10:42 insulin glargine Allergy Unknown Verified 09/26/24 10:42 [From Lantus] metformin Allergy Unknown Verified 09/26/24 10:42 olanzapine [From Zyprexa] Allergy Unknown Verified 09/26/24 10:42 paliperidone [From Invega] Allergy Unknown Verified 09/26/24 10:42 thiothixene Allergy Unknown Verified 09/26/24 10:42 ziprasidone [From Geodon] Allergy Unknown Verified 09/26/24 10:42 ABILIFY INJECTION Allergy Unknown Uncoded 02/01/24 17:43 INVEGA INJECTION Allergy Unknown Uncoded 02/01/24 17:43 Surgical - Exam Vital Signs Pulse Ox FiO2 92 L 80 09/26/24 09:33 09/26/24 09:33 - General well developed, well nourished, no distress, no pain, chronically ill - Eyes PERRL, normal ocular movement, no pale, no icteric - ENT normal pinna, normal nares, normal mucosa - Neck Neck is supple, no lymphadenopathy. no masses, no bruits, trachea midline, no venous distension - Respiratory Lung sounds with scattered rhonchi throughout, no wheezes rhonchi or crackles. Respirations are symmetrical and nonlabored. Strong cough, nonproductive. Left pigtail catheter in place to low continuous wall suction -20 cm H2O. No airleak present. Draining scant thin serous drainage. - Cardiovascular Regular rhythm and rate. S1 and S2 present, negative for S3, gallop or murmur. - Abdomen Abdomen is soft, nontender and nondistended. Active bowel sounds present all 4 abdominal quadrants. No guarding rigidity. No organomegaly appreciated. - Genitourinary Deferred - Rectum Deferred - Integumentary Skin is warm and dry. No clubbing or cyanosis is present. No edema present. no rash, no growths, no abnormal pigmentation - Neurologic Unable to accurately assess as the patient is not answering questions. - Musculoskeletal Moves all 4 extremities with equal strength bilateral. - Psychiatric Unable to accurately assess as the patient patient is not answering questions. He is able to follow some instruction and use his I-S appropriately achieving 1000 mL on his incentive spirometry with encouragement. Results - Labs 10/04/24 06:28 10/04/24 06:28 Abnormal Lab Results - Last 24 Hours (Table) 10/03/24 10/03/24 10/03/24 Range/Units 17:08 20:04 21:35 RBC (4.30-5.90) m/uL ABG pH (7.35-7.45) ABG pO2 (83-108) mmHg ABG HCO3 (21-25) mmol/L ABG Total CO2 (19-24) mmol/L ABG O2 Saturation (94-97) % Hemoglobin (13.0-17.5) gm/dL Sodium (137-145) mmol/L Chloride (98-107) mmol/L Carbon Dioxide (22-30) mmol/L Creatinine (0.66-1.25) mg/dL Glucose (74-99) mg/dL POC Glucose (mg/dL) 224 H 137 H 128 H (70-110) mg/dL Calcium (8.4-10.2) mg/dL Alkaline Phosphatase (38-126) U/L Total Protein (6.3-8.2) g/dL Albumin (3.5-5.0) g/dL 10/03/24 10/04/24 10/04/24 Range/Units 22:51 06:09 06:28 RBC 4.19 L (4.30-5.90) m/uL ABG pH 7.51 H (7.35-7.45) ABG pO2 59 L* (83-108) mmHg ABG HCO3 31 H (21-25) mmol/L ABG Total CO2 33 H (19-24) mmol/L ABG O2 Saturation 93.4 L (94-97) % Hemoglobin 11.9 L (13.0-17.5) gm/dL Sodium (137-145) mmol/L Chloride (98-107) mmol/L Carbon Dioxide (22-30) mmol/L Creatinine (0.66-1.25) mg/dL Glucose (74-99) mg/dL POC Glucose (mg/dL) 201 H (70-110) mg/dL Calcium (8.4-10.2) mg/dL Alkaline Phosphatase (38-126) U/L Total Protein (6.3-8.2) g/dL Albumin (3.5-5.0) g/dL 10/04/24 10/04/24 Range/Units 06:28 11:33 RBC (4.30-5.90) m/uL ABG pH (7.35-7.45) ABG pO2 (83-108) mmHg ABG HCO3 (21-25) mmol/L ABG Total CO2 (19-24) mmol/L ABG O2 Saturation (94-97) % Hemoglobin (13.0-17.5) gm/dL Sodium 132 L (137-145) mmol/L Chloride 95 L (98-107) mmol/L Carbon Dioxide 31 H (22-30) mmol/L Creatinine 0.61 L (0.66-1.25) mg/dL Glucose 214 H (74-99) mg/dL POC Glucose (mg/dL) 308 H (70-110) mg/dL Calcium 8.0 L (8.4-10.2) mg/dL Alkaline Phosphatase 278 H (38-126) U/L Total Protein 5.5 L (6.3-8.2) g/dL Albumin 2.3 L (3.5-5.0) g/dL Microbiology - Last 24 Hours (Table) 09/28/24 21:28 Blood Culture - Final Blood 09/28/24 21:11 Blood Culture - Final Blood 09/30/24 15:40 Gram Stain - Preliminary Pleural Fluid Body Fluid Culture - Preliminary Diabetes panel 10/04/24 Range/Units 06:28 Sodium 132 L (137-145) mmol/L Potassium 3.9 (3.5-5.1) mmol/L Chloride 95 L (98-107) mmol/L Carbon Dioxide 31 H (22-30) mmol/L BUN 14 (9-20) mg/dL Creatinine 0.61 L (0.66-1.25) mg/dL Glucose 214 H (74-99) mg/dL Calcium 8.0 L (8.4-10.2) mg/dL AST 33 (17-59) U/L ALT 19 (4-49) U/L Alkaline Phosphatase 278 H (38-126) U/L Total Protein 5.5 L (6.3-8.2) g/dL Albumin 2.3 L (3.5-5.0) g/dL Calcium panel 10/04/24 Range/Units 06:28 Calcium 8.0 L (8.4-10.2) mg/dL Albumin 2.3 L (3.5-5.0) g/dL Pituitary panel 10/04/24 Range/Units 06:28 Sodium 132 L (137-145) mmol/L Potassium 3.9 (3.5-5.1) mmol/L Chloride 95 L (98-107) mmol/L Carbon Dioxide 31 H (22-30) mmol/L BUN 14 (9-20) mg/dL Creatinine 0.61 L (0.66-1.25) mg/dL Glucose 214 H (74-99) mg/dL Calcium 8.0 L (8.4-10.2) mg/dL Adrenal panel 10/04/24 Range/Units 06:28 Sodium 132 L (137-145) mmol/L Potassium 3.9 (3.5-5.1) mmol/L Chloride 95 L (98-107) mmol/L Carbon Dioxide 31 H (22-30) mmol/L BUN 14 (9-20) mg/dL Creatinine 0.61 L (0.66-1.25) mg/dL Glucose 214 H (74-99) mg/dL Calcium 8.0 L (8.4-10.2) mg/dL Total Bilirubin 0.5 (0.2-1.3) mg/dL AST 33 (17-59) U/L ALT 19 (4-49) U/L Alkaline Phosphatase 278 H (38-126) U/L Total Protein 5.5 L (6.3-8.2) g/dL Albumin 2.3 L (3.5-5.0) g/dL - Imaging Chest x-ray: report reviewed, image reviewed Assessment and Plan Assessment: Loculated left-sided pleural effusion, status post pigtail catheter placement on September 30, 2024 by interventional radiology Acute hypoxemic respiratory failure secondary to suspected bilateral pneumonia, bilateral pleural effusions, and possible underlying diastolic congestive heart failure, currently on Airvo Leukocytosis, likely secondary to above Atrial fibrillation with rapid ventricular response on admission twelve-lead EKG with a heart rate of 164 bpm Hypertension History of CVA Diabetes mellitus type 2, insulin-dependent Schizoaffective disorder History of bipolar disorder with anxiety/depression GERD Medical debility Plan: The patient was seen and examined at his bedside on the third floor cardiac stepdown unit. His chart and diagnostics reviewed. His case was discussed in detail with Dr. Brielle De Los Santos from cardiothoracic surgery. We will obtain a CT scan of the chest without contrast to further evaluate his loculated pleural effusion. He may be a candidate for alteplase/dornase pleural instillation, will evaluate results of CT scan of the chest prior. Continue left chest pigtail catheter to low continuous wall suction -20 cm H2O. Continue to monitor daily chest x-rays. Encourage use of incentive spirometry 10 times every hour while awake. Antibiotic management per infectious disease recommendations. Medical management of other comorbidities per internal medicine, pulmonary/critical care and infectious disease. More recommendations to follow based on patient's clinical course. Thank you Dr. Ballesteros for this consult and we look forward to working with you in the care of this patient. I have personally seen and examined the patient, performed the documentation and the assessment and plan as written. Number of minutes spent on the visit: 30. DA Kelly
[2024-10-04 16:51] LABS: Glucose,Whole Blood 171 mg/dL (70-110)
[2024-10-04 20:07] LABS: Glucose,Whole Blood 126 mg/dL (70-110)
[2024-10-05 06:17] LABS: Glucose,Whole Blood 180 mg/dL (70-110)
--- NOTE | 2024-10-05 07:17 | XR ---
EXAMINATION TYPE: XR chest 1V portable DATE OF EXAM: 10/05/2024 CLINICAL HISTORY: Difficulty breathing progress study. TECHNIQUE: Single AP portable semiupright view of the chest is obtained. COMPARISON: Chest x-ray from one day earlier FINDINGS: Persistent left basilar pleural pigtail drainage catheter. Persistent diffuse left lung op acities along with focal right apical and right basilar increased opacities. Cardiac silhouette size is stable and within normal limits. Osseous structures are intact. Cholecystectomy clips are noted. IMPRESSION: Diffuse left lung acute infiltrates and/or edema redemonstrated. Persistent left basilar pleural drainage catheter. No pneumothorax. Persistent right basilar infiltrate and/or atelectasis. P ersistent focal right apical opacity. No significant change from one day earlier. [facility], , 10/05/2024 7:15 AM
--- NOTE | 2024-10-05 08:41 | P.PN ---
Subjective Progress Note Date: 10/05/24 Principal diagnosis: Persistent left pleural effusion. Past medical history significant for asthma, COPD, CVA, diabetes mellitus type 2, hypertension, thyroid disorder, GERD, anxi ety, depression, bipolar disorder, and schizoaffective disorder. POD #5 placement of left pleural pigtail catheter by interventional radiology. The patient was seen and examined in follow-up today October 05, 2024 at his bedside on the third floor cardiac stepdown unit. Patient is currently laying in bed, is awake, alert, and oriented x [address] Attempts made to reorient patient to time. The patient is more verbal this morning and answering questions appropriately. He denies any complaints of pain at this time, although is complaining of some episodes of shortness of breath. He remains on Airvo support with FiO2 of 65% and oxygen saturations are 96% on current Airvo settings. He is achieving 1000 mL on his incentive spirometry with much encouragement. Left pleural pigtail catheter remains in place. No air leak is present. Draining thin serous drainage with 20 mL output in the last [address] scan of the chest without contrast was ordered yesterday and remains pending. Chest x-ray results reviewed. He remains on isolation for positive COVID-19 result. Objective - Vital Signs Vital signs: Vital Signs Temp 98.2 F 10/05/24 00:00 Pulse 58 L 10/05/24 04:00 Resp 20 10/05/24 04:00 BP 128/57 10/05/24 04:00 Pulse Ox 96 10/05/24 04:00 FiO2 65 10/05/24 04:03 Intake & Output 10/04/24 10/05/24 10/05/24 18:59 06:59 18:59 Intake Total 1080 Output Total 20 0 Balance -20 1080 Weight 73 kg 72.5 kg Intake: Oral 1080 Output: Chest Tube Drainage 20 0 Chest Tube Left 20 0 Other: Voiding Method Diaper Diaper # Voids 1 # Bowel Movements 1 - Exam CONSTITUTIONAL: Appears comfortable, cooperative, no acute distress RESPIRATORY: Lungs sounds diminished to his bilateral bases, left greater than right, few scattered rhonchi. Respirations symmetrical, nonlabored. Currently on Airvo support with FiO2 65% and oxygen saturation 96%. Able to achieve 1000 mL on his incentive spirometry. Strong nonproductive cough. CARDIOVASCULAR: S1, S2 present. Regular rate and rhythm, sinus rhythm on telemetry. Palpable peripheral pulses bilaterally. No edema present. No calf pain or tenderness noted. GASTROINTESTINAL: Abdomen soft, nontender, nondistended. Active bowel sounds present 4 quadrants. Tolerating diet. GENITOURINARY: Continues to void, episodes of incontinence with diaper/brief in place. INTEGUMENTARY: Skin is warm and dry with no clubbing or cyanosis present. NEUROLOGIC: No focal deficits. MUSKULOSKELETAL: Able to move all extremities, strength equal bilaterally. PSYCHIATRIC: Alert and oriented to person place and time, flat affect, intact judgment and insight. INVASIVE LINES AND TUBES: Left pleural pigtail catheter in place to low contin uous wall suction -20 cm H2O. No air leak is present. Draining thin serous drainage with 20 mL output in the last 24 hours. - Allied health notes Allied health notes reviewed: nursing - Labs CBC & Chem 7: 10/04/24 06:28 10/04/24 06:28 Labs: Abnormal Lab Results - Last 24 Hours (Table) 10/04/24 10/04/24 10/04/24 Range/Units 11:33 16:50 20:03 POC Glucose (mg/dL) 308 H 171 H 126 H (70-110) mg/dL 10/05/24 Range/Units 06:15 POC Glucose (mg/dL) 180 H (70-110) mg/dL Microbiology - Last 24 Hours (Table) 09/30/24 15:40 Anaerobic Culture - Final Pleural Fluid 09/30/24 15:40 Gram Stain - Final Pleural Fluid Body Fluid Culture - Final 09/28/24 21:28 Blood Culture - Final Blood 09/28/24 21:11 Blood Culture - Final Blood - Imaging and Cardiology Chest x-ray: report reviewed, image reviewed Assessment and Plan Assessment: Loculated left-sided pleural effusion, status post pigtail catheter placement on September 30, 2024 by interventional radiology Acute hypoxemic respiratory failure secondary to suspected bilateral pneumonia, bilateral pleural effusions, and possible underlying diastolic congestive heart failure, currently on Airvo Leukocytosis, likely secondary to above Atrial fibrillation with rapid ventricular response on admission twelve-lead EKG with a heart rate of 164 bpm Hypertension History of CVA Diabetes mellitus type 2, insulin-dependent Schizoaffective disorder History of bipolar disorder with anxiety/depression GERD Medical debility Plan: CT scan of the chest remains pending. More recommendations to follow once the CT scan of the chest has been completed and reviewed. Wean oxygen as tolerated, bronchodilators and oxygen management per pulmonary/critical care medicine recommendations. Encourage use of incentive spirometry 10 times every hour while awake. Increase activity as tolerated. Out of bed for all meals. Continue to monitor daily chest x-rays. Keep left pleural pigtail catheter in place to low continuous wall suction -20 cm H2O. Record strict and accurate I's and O's. He may require alteplase/dornase pleural instillation once CT scan results have been reviewed. Medical management other comorbidities per internal medicine, infectious disease and pulmonary/critical care medicine. More recommendations to follow based on patient's clinical course. Time with Patient: Less than 30
--- NOTE | 2024-10-05 10:13 | CT ---
EXAMINATION TYPE: CT chest wo con DATE OF EXAM: 10/05/2024 COMPARISON: Chest x-ray from earlier today and older studies HISTORY: [facility] CT DLP: 518.9 mGycm. Automated Exposure Control for Dose Reduction was Utilized. TECHNIQUE: CT scan of the thorax is performed without IV contrast. FINDINGS: LUNGS: There is small to borderline moderate size right-sided pleural effusion with associated right lung compressive atelectasis. Some multifocal groundglass opacity in the right upper lobe is present. There is moderate size nonsimple or loculated left-sided pleural fluid collection with left basilar pleural pigtail drainage catheter. There is associated left basilar consolidation/atelectasis. No pne umothorax seen bilaterally. MEDIASTINUM: Lack of IV contrast is noted to limit evaluation for mediastinal and especially hilar ad enopathy. No cardiomegaly or pericardial effusion is seen. Mitral annular calcifications are presen t. OTHER: Cholecystectomy clips are seen. IMPRESSION: 1. Moderate size nonsimple or loculated left-sided pleural fluid collection with lateral left basilar pleural drainage catheter. There is associated left lung consolidation/atelectasis. 2. Small to borderline moderate size right-sided pleural effusion with associated right posterior com pressive atelectasis. Some patchy multifocal areas of acute infiltrate and/or edema throughout the ri ght upper lobe are noted. [facility], , 10/05/2024 10:10 AM
[2024-10-05 11:37] LABS: Glucose,Whole Blood 266 mg/dL (70-110)
[2024-10-05] MEDS: ALTEPLASE 10 MG in SODIUM CHLORIDE 0.9% 50 ML IRRIGATION ONE (12:00)
[2024-10-05] MEDS: DORNASE ALFA 5 MG in SODIUM CHLORIDE 0.9% 50 ML IRRIGATION ONE (12:01)
--- NOTE | 2024-10-05 13:31 | P.PN ---
Subjective Progress Note Date: 10/05/24 Principal diagnosis: Pneumonia. This is a 59-year-old male patient with a known history of schizophrenia and resides in a adult foster care setting who had been brought into [facility] with increasing shortness of breath on September 22, 2024. He was requiring Airvo high flow oxygen and not showing much improvement and was transferred here direct admit to the selective care unit today. Chest x-ray here reveals bilateral pleural effusion and basilar infiltrates left greater than right. Correlate for underlying CHF. Possible pneumonia. Large lobulated density in the left lobe. He is currently sitting up in a chair. Awake and alert. Somewhat uncooperative. A safety companion is at the bedside. Continuously taking off his Airvo high flow oxygen device. This is currently set at 50 L and 80% FiO2. Procalcitonin at [place] was 2.40. He has been initiated on DuoNeb and elations, vancomycin and Zosyn. Ativan as needed. White count 14.9. Hemoglobin 13.9. Platelets 146. Sodium 136. Potassium 3.6. Bicarb 29. BUN 25. Creatinine 0.71. Glucose 157. He currently denies any worsening shortness of breath, cough or congestion. He is not clear as to why he was admitted. No family at the bedside. patient was seen today on 09/27/2024, patient remains at hypoxic, remains on Airvo at 50% FiO2 and 50 L flow patient is basically about the same seems to be more comfortable, he had a safety companion at bedside. As at times he seems to be quite agitated and restless. Ultrasound of the chest was reviewed, may have some debris in the pleural effusion, and there is also lung tissue, hence am not planning thoracentesis at this point. My recommendation to continue antibiotics and diuretics, and continue to monitor, we will decide whether the patient could benefit from thoracentesis or a pigtail catheter placement.WBC count is 15.8 hemoglobin 13.2 basic metabolic profile is normal renal profile is normalLegionella antigen is negative. Procalcitonin at [place] was +2.40 Patient was seen today on 09/28/2024, basically the patient is about the same, remains on Airvo, 50% FiO2 and 50% liters flow, mental status is basically about the same, patient is encephalopathic, reviewed the ultrasound of the chest, patient seems to have loculated pleural effusion and I am recommending a pigtail catheter placement next week by interventional radiology in the meantime continue antibiotics. Continues to have leukocytosis, continues to have relatively normal electrolytes. Patient had elevated procalcitonin level on admission Patient was seen today on 09/29/2024, patient is basically about the same, remains on Airvo, he has a safety companion at bedside, patient does not seem to verbalize much, remains encephalopathic. I have recommended pigtail catheter placement for his complicated or loculated pleural effusion, this will be done by interventional radiology hopefully tomorrow. In the meantime patient is receiving antibiotics for his pneumonia and parapneumonic effusion. The patient is seen today September 30, 2024 in follow-up on the selective care unit. He is currently resting in bed. Awake and alert. customer orders clerk remains at the bedside. He is continued on Airvo high flow oxygen at 45 L and 50% FiO2. Blood cultures revealing no growth thus far. White count 13.3. Hemoglobin 12.5. Platelets 190. Sodium 132. Potassium 3.5. Bicarb 27. BUN 21. Creatinine 0.73. Glucose 173. He is continued on Zosyn. Remains on broncho dilators. Plan is for pigtail catheter placement today for the left-sided loculated pleural effusion. Progress note dated October 01, 2024. 59-year-old male who is seen today in room 376. The patient is currently on Airvo, with settings of 50 L/min, and FiO2 of 85%. The patient is getting sa line at 75 cc an hour. A pigtail catheter was placed on the left side yesterday, by interventional radiology. Count 10.4, hemoglobin 12.6, hematocrit 38.7, and a platelet count of 173,000. Sodium 131, potassium 3.4, chloride 97, CO2 28, BUN 18, creatinine 0.63. Glucose is 245. Calcium 7.6. Progress note dated October 02, 2024. 59-year-old male seen in room 376. The patient is currently on Airvo at 50 L/min with an FiO2 of 80%. He continues on Zosyn. A left pigtail catheter is noted. The patient clinically is doing better. We encouraged him today to use his incentive spirometer, which apparently he was not using. We have asked the nurse to cross country and track and field coach the patient, to use it on a hourly basis. Current labs include white count 11.3, hemoglobin 12.7, hematocrit 38.8, and a normal platelet count of 202,000. Sodium 133, potassium 3.7, chlorides 100, CO2 25, BUN 14, and creatinine 0.62. Glucose is 173. Albumin is 2.3. Calcium is 7.6. Progress note dated October 03, 2024. 59-year-old male who is seen today in room 376. Currently, the patient is on Airvo, with settings of 50 L/min, and an FiO2 of 70%. The patient has had a fluctuating mental status, over the last few days. Currently, white count is 11.3, hemoglobin 13.4, hematocrit 40.3, platelet count 215,000. The patient had a blood gas done, and his pO2 is 55, pCO2 36, pH is 7.51. Glucose is 304. Sodium 132, potassium 4.2, chloride 96, CO2 31, BUN 11, creatinine 0.69. Albumin is 2.3. Culture data has all been negative. Chest x-ray shows a left basilar pleural catheter in place, with decreasing size of moderate size pleural effusion with loculations. Progress note dated October 04, 2024. 59-year-old male who is seen today in room 376. He is awake and alert. He still on Airvo, with settings of 50 L/min, and a FiO2 of 65%. The patient does not manifest any signs or symptoms of respiratory difficulty or distress. He does continue on Zosyn. Current labs include a white count 9.9, hemoglobin 13.4, hematocrit 39.5, and a platelet count of 216,000. Sodium 132, potassium 3.9, chlorides 95, CO2 31, BUN 14, and creatinine 0.61. Glucose is 308. Albumin is 2.3. Cultures thus far are negative. Chest x-ray from October 03, has been reviewed. Progress note dated October 05, 2024. 59-year-old male seen in room 376. Sitter is in the room today. The patient continues on Airvo, at 40 L/min with an FiO2 of 50%. The patient is scheduled to have a CT scan of the chest on today. The patient continues on Zosyn. No IV fluids. Appears to be resting comfortably. No respiratory distress or difficulty. No new labs today other than a glucose of 266. CT scan of the chest shows a moderate loculated left-sided pleural fluid collection, with pleural drainage catheter noted. There is associated and adjacent left lung consolidation/atelectasis. There is a small to moderate right-sided pleural effusion as well. Objective - Vital Signs Vital signs: Vital Signs Temp 98.1 F 10/05/24 12:00 Pulse 50 L 10/05/24 12:00 Resp 20 10/05/24 12:00 BP 106/56 10/05/24 12:00 Pulse Ox 92 L 10/05/24 13:11 FiO2 50 10/05/24 13:11 Intake & Output 10/04/24 10/05/24 10/05/24 18:59 06:59 18:59 Intake Total 1080 Output Total 20 0 10 Balance -20 1080 -10 Weight 73 kg 72.5 kg Intake: Oral 1080 Output: Chest Tube Drainage 20 0 10 Chest Tube Left 20 0 10 Other: Voiding Method Diaper Diaper Diaper # Voids 1 # Bowel Movements 1 - Exam No acute distress, currently on AIRVO. HEENT examination is grossly unremarkable. Mucous membranes are moist. No oral lesions. Neck supple. Full range of motion. No adenopathy thyromegaly or neck vein distention. Cardiovascular examination reveals regular rhythm rate. S1-S2 normal. No S3 or S4. No discernible murmur noted. Lungs reveal scattered bilateral rhonchi. No wheezes. No crackles. Breath sounds are equal bilaterally. Left pigtail catheter in place. Abdomen soft bowel sounds are heard. No masses or tenderness. Extremities are intact. No cyanosis clubbing or edema. Skin is without rash or lesion. Neurologic examination is brief but nonfocal. - Labs CBC & Chem 7: 10/04/24 06:28 10/04/24 06:28 Labs: Abnormal Lab Results - Last 24 Hours (Table) 10/04/24 10/04/24 10/05/24 Range/Units 16:50 20:03 06:15 POC Glucose (mg/dL) 171 H 126 H 180 H (70-110) mg/dL 10/05/24 Range/Units 11:35 POC Glucose (mg/dL) 266 H (70-110) mg/dL Microbiology - Last 24 Hours (Table) 09/30/24 15:40 Anaerobic Culture - Final Pleural Fluid 09/30/24 15:40 Gram Stain - Final Pleural Fluid Body Fluid Culture - Final 09/28/24 21:28 Blood Culture - Final Blood 09/28/24 21:11 Blood Culture - Final Blood Assessment and Plan Assessment: Acute hypoxemic respiratory failure secondary to suspected bilateral pneumonia, bilateral pleural effusion, possible underlying diastolic congestive heart failure. Loculated left-sided pleural effusion, S/P pigtail catheter placement, September 30, 2024. Leukocytosis secondary to above. Atrial fibrillation with a rapid ventricular response. Schizoaffective disorder. History of bipolar disorder with anxiety/depression. Diabetes mellitus, type II. History of mild intermittent chronic bronchial asthma. History of CVA. Hypertension. Gastroesophageal reflux disease. [facility] resident. Plan: Plan dated October 01, 2024. The patient is seen today in room 376. The patient continues on Airvo, at 50 L/min, with an FiO2 of 85%. The patient is getting saline at 75 cc an hour. A pigtail catheter was placed by interventional radiology, in the left chest. That was done yesterday, September 30. Labs, x-rays, and medications are reviewed. The patient is overall prognosis remains guarded. We will continue to follow the patient, make recommendations along the way. Plan dated October 02, 2024. The patient is seen today in room 376. The patient continues on Airvo. Settings include 50 L/min with an FiO2 of 80%. The patient continues on Zosyn. No IV fluids. The left pigtail catheter is in place. The patient continues on Zosyn as mentioned. Labs, x-rays, medications are reviewed. Will continue to follow the patient, make recommendations along the way. Clinically, the patient looks relatively stable. We do encourage him to use the incentive spirometer, every hour while awake. Plan dated October 03, 2024. The patient is seen today in room 376. The patient continues on Airvo, with settings of 50 L/min, FiO2 70%. Labs, x-rays, and all medications reviewed. The effusion on the left side, seems to be improving based on today's chest x- ray. The pigtail catheter remains in place. Additional recommendations and suggestions are forthcoming. Prognosis is guarded. We will continue to follow the patient, and make recommendations along the way. The patient does continue on Zosyn. Plan dated October 04, 2024. The patient is seen today in room 376. The patient continues on Airvo, and also on IV Zosyn. Labs, x-rays, and medications are reviewed. His chest x-ray from October 03 has been reviewed. Patient's overall prognosis remains guarded. We will continue to follow the patient, make recommendations where appropriate. The patient has a pigtail catheter in place, on the left side. Plan dated October 05, 2024. The patient seen in room 376. He continues on Airvo. Settings include 40 L/min with an FiO2 of 50%. The patient continues on Zosyn. He is not receiving any IV fluids. CT scan of the chest shows a complex left-sided pleural effusion, with loculations. Cardiothoracic surgery has been consulted. We will continue to follow along. Prognosis is guarded. Labs, x-rays, and medications are reviewed. Time with Patient: Less than 30
--- NOTE | 2024-10-05 15:06 | P.PN ---
Subjective Progress Note Date: 10/05/24 patient is a 59-year-old gentleman with past medical history significant for schizophrenia who is a resident of a adult foster care was transferred to [facility] from [facility] for worsening respiratory status. Patient initially presented to [facility] for shortness of breath and c hest pain for 4 to 5 days. According to medical records, patient was complaining of shortness of breath on exertion and chest pain that was pleuritic in nature worsened by taking deep breaths. Patient was also complaining of lethargy and weakness. There is no complaint of cough. There was no complaint of fever or chills. Patient was worked up in [facility], initial CT chest done showed bilateral lower lobe consolidation greater on the left suspicious for pneumonia. Patient was admitted there and was started on IV antibiotics. Patient also had 2D echo done that showed normal LV systolic function with LVEF of 66 65%, there was some diastolic dysfunction present. No valvular pathology seen. While at [facility], patient respiratory status worsened, patient was requiring heated high flow. Because of respiratory status, transfer was requested and patient was transferred to [facility] Patient admitted to internal medicine service 09/27. Patient seen and examined. Patient is doing better compared to yesterday, patient did not answer many of my questions. 09/28. Patient seen and examined. Patient continues to be on Airvo. 09/29. Patient seen examined. Patient was agitated overnight and received Ativan. Continues to require heated high flow. 09/30. Patient seen and examined. Patient is not the best historian, not willing to answer any question. Patient being scheduled for IR guided pigtail catheter placement 10/01. Patient seen and examined. vital signs stable. Patient had IR guided pigtail catheter placement on left side. Patient lethargic, complaining of pain at the catheter site 10/02/2024. Patient seen and examined. Patient is awake, more responsive compared to yesterday. Patient states that he wants his tube to come out. Denies any chest pain 10/03/2024. Patient seen and examined. Patient had fever overnight 100.2. Currently on high flow Airvo at 70% FiO2, patient had A team this morning for shortness of breath. Currently doing better. 10/04. Patient seen and examined. Patient had low-grade fever overnight. Patient continues to have episodes when he becomes lethargic mostly at night but as the day goes by he becomes more alert. 10/05. Patient seen and examined. CT surgery evaluated, ordered alteplase instillation via pigtail catheter. REVIEW OF SYSTEMS: Denies any chest pain. Denies any shortness of breath at rest. Continues to have poor appetite. PHYSICAL EXAMINATION: GENERAL: The patient is lethargic , ill looking HEENT: Pupils are round and equally reacting to light. EOMI. No scleral icterus. No conjunctival pallor. Normocephalic, atraumatic. No pharyngeal erythema. No thyromegaly. CARDIOVASCULAR: S1 and S2 present. No murmurs, rubs, or gallops. PULMONARY: Coarse breath sound bilaterally, crackles audible, left-sided pigtail catheter seen ABDOMEN: Soft, nontender, nondistended, normoactive bowel sounds. No palpable organomegaly. MUSCULOSKELETAL: No joint swelling or deformity. EXTREMITIES: No cyanosis, clubbing, or pedal edema. NEUROLOGICAL: Moving all extremities SKIN: No rashes. Assessment and plan Acute hypoxemic respiratory failure Bilateral pleural effusions Bacterial pneumonia Paroxysmal A-fib with RVR ruled out Sinus tachycardia Leukocytosis secondary to above Schizoaffective disorder History of bipolar disorder with anxiety/depression Diabetes mellitus, type II History of CVA Hypertension Gastroesophageal reflux disease Monitor vital signs Monitor CBC Monitor CMP Continue ox supplementation aggressive bronchopulmonary hygiene Follow-up on blood cultures Status post IR guided pigtail catheter placement on left side, alteplase instilled per CT surgery on 10/05. Continue breathing treatments Continue IV Zosyn Continue Lopressor and Cardizem Pulmonology following, ID following Cardiology evaluated, recommend beta-blockers, no need for repeating 2D echo CT surgery following. Labs and medication were reviewed.. Continue same treatment. Continue with symptomatic treatment. Resume home medication. Monitor labs and vitals. DVT and GI prophylaxis. Further recommendations as per clinical course of the patient Dictation was produced using [employer] dictation software. please excuse any grammatical, word or spelling errors. Objective - Vital Signs Vital signs: Vital Signs Temp 98.1 F 10/05/24 12:00 Pulse 50 L 10/05/24 12:00 Resp 20 10/05/24 12:00 BP 106/56 10/05/24 12:00 Pulse Ox 92 L 10/05/24 13:11 FiO2 50 10/05/24 13:11 Intake & Output 10/04/24 10/05/24 10/05/24 18:59 06:59 18:59 Intake Total 1080 118 Output Total 20 0 10 Balance -20 1080 108 Weight 73 kg 72.5 kg Intake: Oral 1080 118 Output: Chest Tube Drainage 20 0 10 Chest Tube Left 20 0 10 Other: Voiding Method Diaper Diaper Diaper # Voids 1 2 # Bowel Movements 1 - Labs CBC & Chem 7: 10/04/24 06:28 10/04/24 06:28 Labs: Abnormal Lab Results - Last 24 Hours (Table) 10/04/24 10/04/24 10/05/24 Range/Units 16:50 20:03 06:15 POC Glucose (mg/dL) 171 H 126 H 180 H (70-110) mg/dL 10/05/24 Range/Units 11:35 POC Glucose (mg/dL) 266 H (70-110) mg/dL Microbiology - Last 24 Hours (Table) 09/30/24 15:40 Anaerobic Culture - Final Pleural Fluid 09/30/24 15:40 Gram Stain - Final Pleural Fluid Body Fluid Culture - Final 09/28/24 21:28 Blood Culture - Final Blood 09/28/24 21:11 Blood Culture - Final Blood
--- NOTE | 2024-10-05 15:35 | P.PN ---
Subjective Progress Note Date: 10/05/24 Principal diagnosis: Reason for follow-up is leukocytosis and pneumonia Patient is a 59-year-old male with a past medical history significant for Schizophrenia resident of adult foster care was sent to the [facility] concerning for increasing shortness of breath with subsequent worsening of his symptoms with the patient has been transferred to [facility] concerning for pneumonia. On today's evaluation that is 10/05/2024, patient did have a low-grade fever 100.3 F this morning patient is requiring high flow nasal cannula oxygen in the form of Airvo patient is sleepy but arousable per the sitter at the bedside no vomiting or diarrhea has been reported no new lab has been repeated today cultures has been negative so far Objective - Vital Signs Vital signs: Vital Signs Temp 98.1 F 10/05/24 12:00 Pulse 50 L 10/05/24 12:00 Resp 20 10/05/24 12:00 BP 106/56 10/05/24 12:00 Pulse Ox 92 L 10/05/24 13:11 FiO2 50 10/05/24 13:11 Intake & Output 10/04/24 10/05/24 10/05/24 18:59 06:59 18:59 Intake Total 1080 118 Output Total 20 0 10 Balance -20 1080 108 Weight 73 kg 72.5 kg Intake: Oral 1080 118 Output: Chest Tube Drainage 20 0 10 Chest Tube Left 20 0 10 Other: Voiding Method Diaper Diaper Diaper # Voids 1 2 # Bowel Movements 1 - Exam GENERAL DESCRIPTION: Middle-age male lying in bed in no distress RESPIRATORY SYSTEM: Unlabored breathing , decreased breath sounds at bases HEART: S1 S2 regular rate and rhythm , ABDOMEN: Soft , no tenderness EXTREMITIES: No edema feet - Labs CBC & Chem 7: 10/04/24 06:28 10/04/24 06:28 Labs: Abnormal Lab Results - Last 24 Hours (Table) 10/04/24 10/04/24 10/05/24 Range/Units 16:50 20:03 06:15 POC Glucose (mg/dL) 171 H 126 H 180 H (70-110) mg/dL 10/05/24 Range/Units 11:35 POC Glucose (mg/dL) 266 H (70-110) mg/dL Microbiology - Last 24 Hours (Table) 09/30/24 15:40 Anaerobic Culture - Final Pleural Fluid 09/30/24 15:40 Gram Stain - Final Pleural Fluid Body Fluid Culture - Final 09/28/24 21:28 Blood Culture - Final Blood 09/28/24 21:11 Blood Culture - Final Blood Assessment and Plan (1) Leukocytosis Current Visit: Yes Status: Acute Code(s): D72.829 - ELEVATED WHITE BLOOD CELL COUNT, UNSPECIFIED SNOMED Code(s): 556523923 (2) Pneumonia Current Visit: Yes Status: Acute Code(s): J18.9 - PNEUMONIA, UNSPECIFIED ORGANISM SNOMED Code(s): 840049189 Plan: 1patient presenting to the hospital for evaluation of increasing shortness of breath in this patient who did have evidence of bilateral effusion and basilar atelectasis more on the left side patient did have elevated white count apparently he did have elevated procalcitonin at the [facility], concerning for possible pneumonia question of community-acquired versus gram- negative less likely MRSA 2- MRSA nasal screen has been negative blood cultures are pending sputum not collected 3patient did have chest ultrasound concerning for 8 cm loculated left effusion, patient status post IR drainage of this fluid chest tube placement and cultures so far negative, patient has been evaluated by CT surgery and did have alteplase infusion to help drain the 3-patient will be treated with Zosyn and monitor clinical course closely Dictation was produced using [employer] dictation software. please excuse any grammatical, word or spelling errors. Time with Patient: Less than 30
[2024-10-05 16:32] LABS: Glucose,Whole Blood 303 mg/dL (70-110)
--- NOTE | 2024-10-05 16:44 | P.CN ---
Psychiatric Consult - . Consult date: 10/05/24 Consult:: Dictation was produced using [employer] dictation software. Please excuse any grammatical, word or spelling errors. IDENTIFYING DATA: This patient is a 59 yo M, with past psychiatric history of schizophrenia, currently a resident of [facility] home, was transferred to [facility] for worsening respiratory status, pneumonia, and shortness of breath. REASON FOR REFERRAL: Psychiatry was consulted for "medication changes needed?" HISTORY OF PRESENT ILLNESS: The patient presented to the hospital as a transfer from [facility] due to having increasing shortness of breath, worsening respiratory status and pneumonia. The patient is currently COVID-positive. He continued to have low-grade fever. He is currently on high flow nasal cannula oxygen, sleepy but arousable per his sitter. Patient has a reported history of schizoaffective disorder, bipolar type, he was hospitalized multiple time at a psychiatric facility, this reported more than 10 times overall with 3 hospitalization at [facility]. He was discharged from the hospital last July. Upon evaluation today the patient was laying in bed, sleeping, was able to respond and the conventional mortgage underwriter called his name. He is a poor historian and could not answer many of the questions. He was oriented to place, however could not recall time, date, situation. When asked about suicidal thoughts he reported that he has not been feeling well lately and states " I am waiting to ." He denied any current intention or plan or suicidal thoughts however reported his medical condition is really bad and he has been feeling down. Could not screen the patient for psychosis, ronaldo, depression or anxiety since patient keeps falling asleep while talking to the conventional mortgage underwriter. The patient sitter reported that he seems to be depressed and down lately. Per last hospitalization the patient was discharged on Lamictal 100 mg, Seroquel 800 mg and Depakote 1500 mg ER and hydroxyzine 50 mg as needed every 8 hours. He is currently on Depakote ER 500 mg 3 times daily. We will consider reassessing the patient in the next few days to evaluate for depression, anxiety, ronaldo and psychosis adjust his medication at that time pending improvement in his medical condition. PAST PSYCHIATRIC HISTORY: Per chart review - Inpatient Hospitalizations: Multiple inpatient psychiatric hospitalization, more then 10 overall, including 3 times at [facility]. Last was on 06/21- 07/08/24. Per chart review patient had his first breakdown around the age of 21 - Outpatient Care: [facility] - Current Psychotropics: Depakote 500 mg er p.o. 3 times daily. Per chart review he was discharged on Lamictal 100 mg p.o. daily, Seroquel 800 mg, and Depakote 1500 mg ER and hydroxyzine 50 mg p.o. as needed every 8 hours following his last hospitalization. - Prior Psychotropics/Therapy: - Prior Psychiatric DX: Patient has a history of schizoaffective disorder bipolar type. PAST MEDICAL HISTORY: Past Medical History: Asthma, COPD, CVA/TIA, Diabetes Mellitus, Hypertension, Thyroid Disorder Additional Past Medical History / Comment(s): Tremors History of Any Multi-Drug Resistant Organisms: None Reported Past Surgical History: Cholecystectomy Additional Past Surgical History / Comment(s): LEFT EYE Past Anesthesia/Blood Transfusion Reactions: No Reported Reaction Past Psychological History: Anxiety, Bipolar, Depression, Schizoaffective Disorder Smoking Status: Unknown if ever smoked Past Alcohol Use History: None Reported Past Drug Use History: None Reported Additional Drug Use History / Comment(s): pt is a very poor historian ALLERGIES: as per EMR. CHEMICAL DEPENDENCY HISTORY: as per HPI, and chart review. The patient denied. He stated that he used Alcohol and drugs long time ago. FAMILY PSYCHIATRIC/SUBSTANCE USE HISTORY: Chart review patient denies any family history of mental illness SOCIAL HISTORY: Per chart review, The patient was born and raised in [place], [place]. He grew-up with his two brothers. He finished [employer]. 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 He never . He has no children. MENTAL STATUS EXAM: General Appearance: Patient appears to be stated age is alert, pleasant, and cooperative, however was sleepy and could not answer most of the questions. He is currently on oxygen and has a chest tube. patient appears to have fair hygiene and grooming wearing hospital gown with no eye contact, patient was sleeping on and off during the interview. Behavior: Patient is calmly lying in bed without any agitated behavior. Speech: Patient's speech is fluent and nonpressured. Mood/Affect: Patient reports their mood is "not good", affect is congruent Suicidality/Homicidality: Could not evaluate for suicidal or homicidal ideation intent or plan, however patient reported "I am waiting to ." Perceptions: Could not evaluate for visual hallucinations, or auditory hallucinations Though content/process: Superficially linear Memory and concentration: Patient was sleepy, oriented to place however could not recall time, date or situation, patient was sleeping on and off during the meeting Judgment and insight: Questionable IMPRESSIONS: -History of schizoaffective disorder -Rule out delirium given the patient current medical condition PLAN: -Continue current care as per primary team -At this time patient could not answer most of the questions during the interview and we will consider reassessment in few days pending the patient general medical condition. -Delirium precautions recommended with patient including - avoiding use of narcotics and [employer] sedatives, limit anticholinergic medications when possible, frequent re-orientation, minimize use of restraints, open window shades during the day and close them at night -Continue current psychotropic medication, will order Depakote level to be collected tomorrow morning, please hold the morning dose till pt get the blood draw, may consider reconcile Depakote ER dose to 1500 mg at bedtime instead of Depakote ER 500 mg 3 times daily. -When medically stable, will reassess the patient again -Communicated plan to patient's nurse -Will continue to follow along -Please contact with any questions and let psychiatry team know when the patient general medical condition improved.
[2024-10-05 21:09] LABS: Glucose,Whole Blood 225 mg/dL (70-110)
[2024-10-06 06:28] LABS: Glucose,Whole Blood 204 mg/dL (70-110)
--- NOTE | 2024-10-06 07:14 | XR ---
EXAMINATION TYPE: XR chest 1V portable DATE OF EXAM: 10/06/2024 CLINICAL HISTORY: Difficulty breathing progress study. Loculated left-sided pleural effusion. TECHNIQUE: Single AP portable semiupright view of the chest is obtained. COMPARISON: Chest x-ray and CT from one day earlier FINDINGS: Persistent left basilar pleural pigtail drainage catheter. Persistent diffuse left lung op acities along with focal right apical and right basilar increased opacities. Cardiac silhouette size is stable and within normal limits. Osseous structures are intact. Cholecystectomy clips are noted. IMPRESSION: Diffuse left lung acute infiltrates and/or edema redemonstrated. Persistent left basilar pleural drainage catheter with small left-sided pleural fluid collection. No pneumothorax. Persistent right basilar infiltrate and/or atelectasis. Persistent focal right apical opacity. No significant c hange from one day earlier. [facility], , 10/06/2024 7:12 AM
--- NOTE | 2024-10-06 10:24 | P.PN ---
Subjective Progress Note Date: 10/06/24 Principal diagnosis: Persistent left pleural effusion. Past medical history significant for asthma, COPD, CVA, diabetes mellitus type 2, hypertension, thyroid disorder, GERD, anxi ety, depression, bipolar disorder, and schizoaffective disorder. POD #6 placement of left pleural pigtail catheter by interventional radiology. The patient was seen and examined at his bedside today October 06, 2024 on the third floor cardiac stepdown unit. The patient is currently laying in bed, is not answering any verbal questions, except he denies any pain or shortness of breath at this time. He is shaking his head yes and no appropriately to questions. Oxygen saturations are 94% on Airvo with oxygen FiO2 35%. Left pleural pigtail catheter remains in place to low continuous wall suction -20 cm H2O. No air leak is present. He was instilled with a pleural instillation of alteplase/dornase through his left chest pigtail catheter yesterday, draining thin serous drainage with 650 mL output since the installation was completed. Chest x-ray results reviewed. Objective - Vital Signs Vital signs: Vital Signs Temp 99.3 F 10/06/24 08:56 Pulse 63 10/06/24 08:56 Resp 16 10/06/24 08:56 BP 158/74 10/06/24 08:56 Pulse Ox 94 L 10/06/24 09:21 FiO2 40 10/06/24 09:21 Intake & Output 10/05/24 10/06/24 10/06/24 18:59 06:59 18:59 Intake Total 468 240 50 Output Total 190 400 Balance 278 -160 50 Weight 57 kg Intake: Intake, IV Titration 200 Amount Piperacillin-Tazobactam 3 200 .375 gm In Sodium Chloride 0.9% 100 ml @ 25 mls/hr IVPB Q8H [facility] Rx#: [id number] Oral 268 240 50 Output: Chest Tube Drainage 190 400 Chest Tube Left 190 400 Other: Voiding Method Diaper Diaper # Voids 3 1 # Bowel Movements 1 - Exam CONSTITUTIONAL: Appears comfortable, cooperative, no acute distress RESPIRATORY: Lungs sounds diminished to his bilateral bases, left greater than right, few scattered rhonchi. Respirations symmetrical, nonlabored. Currently on Airvo support with FiO2 35% and oxygen saturation 94%. Able to achieve 1000 mL on his incentive spirometry. Strong nonproductive cough. CARDIOVASCULAR: S1, S2 present. Regular rate and rhythm, sinus rhythm on telemetry. Palpable peripheral pulses bilaterally. No edema present. No calf pain or tenderness noted. GASTROINTESTINAL: Abdomen soft, nontender, nondistended. Active bowel sounds present 4 quadrants. Tolerating diet. GENITOURINARY: Continues to void, episodes of incontinence with diaper/brief in place. INTEGUMENTARY: Skin is warm and dry with no clubbing or cyanosis present. NEUROLOGIC: No focal deficits. MUSKULOSKELETAL: Able to move all extremities, strength equal bilaterally. PSYCHIATRIC: Alert and oriented to person place and time, flat affect, intact judgment and insight. INVASIVE LINES AND TUBES: Left pleural pigtail catheter in place to low continuous wall suction -20 cm H2O. No air leak is present. Draining thin serous drainage with 650 mL output in the last 24 hours. - Allied health notes Allied health notes reviewed: nursing - Labs CBC & Chem 7: 10/04/24 06:28 10/04/24 06:28 Labs: Abnormal Lab Results - Last 24 Hours (Table) 10/05/24 10/05/24 10/05/24 Range/Units 11:35 16:21 20:58 POC Glucose (mg/dL) 266 H 303 H 225 H (70-110) mg/dL 10/06/24 Range/Units 06:24 POC Glucose (mg/dL) 204 H (70-110) mg/dL - Imaging and Cardiology Chest x-ray: report reviewed, image reviewed Assessment and Plan Assessment: Loculated left-sided pleural effusion, status post pigtail catheter placement on September 30, 2024 by interventional radiology, status post instillation of alteplase/dornase yesterday October 05, 2024. Acute hypoxemic respiratory failure secondary to suspected bilateral pneumonia, bilateral pleural effusions, and possible underlying diastolic congestive heart failure, currently on Airvo Leukocytosis, likely secondary to above Atrial fibrillation with rapid ventricular response on admission twelve-lead EKG with a heart rate of 164 bpm Hypertension History of CVA Diabetes mellitus type 2, insulin-dependent Schizoaffective disorder History of bipolar disorder with anxiety/depression GERD Medical debility Plan: CT scan of the chest results reviewed. We will instill a second dose of altepl ase/dornase, pleural instillation through his left pigtail catheter today. Wean oxygen as tolerated, bronchodilators and oxygen management per pulmonary/critical care medicine recommendations. Encourage use of incentive spirometry 10 times every hour while awake. Increase activity as tolerated. Out of bed for all meals. Continue to monitor daily chest x-rays. Keep left pleural pigtail catheter in place to low continuous wall suction -20 cm H2O. Record strict and accurate I's and O's. The patient had alteplase/dornase pleural instillation first dose completed yesterday after CAT scan results were reviewed. He had 650 mL of thin serosanguineous drainage post alteplase/dornase instillation. Medical management other comorbidities per internal medicine, infectious disease and pulmonary/critical care medicine. More recommendations to follow based on patient's clinical course. Time with Patient: Less than 30
[2024-10-06] MEDS: DORNASE ALFA 5 MG in SODIUM CHLORIDE 0.9% 50 ML IRRIGATION ONE (11:03)
[2024-10-06] MEDS: ALTEPLASE 10 MG in SODIUM CHLORIDE 0.9% 50 ML IRRIGATION ONE (11:03)
[2024-10-06 11:23] LABS: Glucose,Whole Blood 219 mg/dL (70-110)
--- NOTE | 2024-10-06 12:41 | P.PN ---
Subjective Progress Note Date: 10/06/24 patient is a 59-year-old gentleman with past medical history significant for schizophrenia who is a resident of a adult foster care was transferred to [facility] from [facility] for worsening respiratory status. Patient initially presented to [facility] for shortness of breath and c hest pain for 4 to 5 days. According to medical records, patient was complaining of shortness of breath on exertion and chest pain that was pleuritic in nature worsened by taking deep breaths. Patient was also complaining of lethargy and weakness. There is no complaint of cough. There was no complaint of fever or chills. Patient was worked up in [facility], initial CT chest done showed bilateral lower lobe consolidation greater on the left suspicious for pneumonia. Patient was admitted there and was started on IV antibiotics. Patient also had 2D echo done that showed normal LV systolic function with LVEF of 66 65%, there was some diastolic dysfunction present. No valvular pathology seen. While at [facility], patient respiratory status worsened, patient was requiring heated high flow. Because of respiratory status, transfer was requested and patient was transferred to [facility] Patient admitted to internal medicine service 09/27. Patient seen and examined. Patient is doing better compared to yesterday, patient did not answer many of my questions. 09/28. Patient seen and examined. Patient continues to be on Airvo. 09/29. Patient seen examined. Patient was agitated overnight and received Ativan. Continues to require heated high flow. 09/30. Patient seen and examined. Patient is not the best historian, not willing to answer any question. Patient being scheduled for IR guided pigtail catheter placement 10/01. Patient seen and examined. vital signs stable. Patient had IR guided pigtail catheter placement on left side. Patient lethargic, complaining of pain at the catheter site 10/02/2024. Patient seen and examined. Patient is awake, more responsive compared to yesterday. Patient states that he wants his tube to come out. Denies any chest pain 10/03/2024. Patient seen and examined. Patient had fever overnight 100.2. Currently on high flow Airvo at 70% FiO2, patient had A team this morning for shortness of breath. Currently doing better. 10/04. Patient seen and examined. Patient had low-grade fever overnight. Patient continues to have episodes when he becomes lethargic mostly at night but as the day goes by he becomes more alert. 10/05. Patient seen and examined. CT surgery evaluated, ordered alteplase instillation via pigtail catheter. . Patient seen and examined. Patient received pleural instillation of alte plase/dornase through his left chest pigtail catheter yesterday, draining thin serous drainage with 650 mL output. REVIEW OF SYSTEMS: Denies any chest pain. Denies any shortness of breath at rest. Continues to have poor appetite. PHYSICAL EXAMINATION: GENERAL: The patient is lethargic , ill looking HEENT: Pupils are round and equally reacting to light. EOMI. No scleral icterus. No conjunctival pallor. Normocephalic, atraumatic. No pharyngeal erythema. No thyromegaly. CARDIOVASCULAR: S1 and S2 present. No murmurs, rubs, or gallops. PULMONARY: Coarse breath sound bilaterally, crackles audible, left-sided pigtail catheter seen ABDOMEN: Soft, nontender, nondistended, normoactive bowel sounds. No palpable organomegaly. MUSCULOSKELETAL: No joint swelling or deformity. EXTREMITIES: No cyanosis, clubbing, or pedal edema. NEUROLOGICAL: Moving all extremities SKIN: No rashes. Assessment and plan Acute hypoxemic respiratory failure Bilateral pleural effusions Bacterial pneumonia Paroxysmal A-fib with RVR ruled out Sinus tachycardia Leukocytosis secondary to above Schizoaffective disorder History of bipolar disorder with anxiety/depression Diabetes mellitus, type II History of CVA Hypertension Gastroesophageal reflux disease Monitor vital signs Monitor CBC Monitor CMP Continue ox supplementation aggressive bronchopulmonary hygiene Follow-up on blood cultures Status post IR guided pigtail catheter placement on left side, alteplase instilled per CT surgery on 10/05. Continue breathing treatments Continue IV Zosyn Continue Lopressor and Cardizem Pulmonology following, ID following Cardiology evaluated, recommend beta-blockers, no need for repeating 2D echo CT surgery following. Labs and medication were reviewed.. Continue same treatment. Continue with symptomatic treatment. Resume home medication. Monitor labs and vitals. DVT and GI prophylaxis. Further recommendations as per clinical course of the patient Dictation was produced using [employer] dictation software. please excuse any grammatical, word or spelling errors. Objective - Vital Signs Vital signs: Vital Signs Temp 98.2 F 10/06/24 11:08 Pulse 76 10/06/24 11:08 Resp 16 10/06/24 11:08 BP 151/75 10/06/24 11:08 Pulse Ox 95 10/06/24 12:22 FiO2 50 10/06/24 11:08 Intake & Output 10/05/24 10/06/24 10/06/24 18:59 06:59 18:59 Intake Total 468 240 100 Output Total 190 400 40 Balance 278 -160 60 Weight 57 kg Intake: Intake, IV Titration 200 Amount Piperacillin-Tazobactam 3 200 .375 gm In Sodium Chloride 0.9% 100 ml @ 25 mls/hr IVPB Q8H [facility] Rx#: [id number] Oral 268 240 100 Output: Chest Tube Drainage 190 400 40 Chest Tube Left 190 400 40 Other: Voiding Method Diaper Diaper Diaper # Voids 3 1 # Bowel Movements 1 0 - Labs CBC & Chem 7: 10/04/24 06:28 10/04/24 06:28 Labs: Abnormal Lab Results - Last 24 Hours (Table) 10/05/24 10/05/24 10/06/24 Range/Units 16:21 20:58 06:24 POC Glucose (mg/dL) 303 H 225 H 204 H (70-110) mg/dL 10/06/24 Range/Units 11:22 POC Glucose (mg/dL) 219 H (70-110) mg/dL
--- NOTE | 2024-10-06 12:48 | P.PN ---
Subjective Progress Note Date: 10/06/24 Principal diagnosis: Reason for follow-up is leukocytosis and pneumonia Patient is a 59-year-old male with a past medical history significant for Schizophrenia resident of adult foster care was sent to the [facility] concerning for increasing shortness of breath with subsequent worsening of his symptoms with the patient has been transferred to [facility] concerning for pneumonia. On today's evaluation that is 10/06/2024, Patient is afebrile patient is currently on 50% high flow Airvo supplemental oxygen denies any chest pain or any worsening cough no vomiting or diarrhea reported by the nursing staff. Culture remains to be negative chest x-ray this morning diffuse left lung acute infiltrate and or edema. Left basilar pleural drainage catheter and small fluid collection no pneumothorax Objective - Vital Signs Vital signs: Vital Signs Temp 98.2 F 10/06/24 11:08 Pulse 76 10/06/24 11:08 Resp 16 10/06/24 11:08 BP 151/75 10/06/24 11:08 Pulse Ox 95 10/06/24 12:22 FiO2 50 10/06/24 11:08 Intake & Output 10/05/24 10/06/24 10/06/24 18:59 06:59 18:59 Intake Total 468 240 100 Output Total 190 400 40 Balance 278 -160 60 Weight 57 kg Intake: Intake, IV Titration 200 Amount Piperacillin-Tazobactam 3 200 .375 gm In Sodium Chloride 0.9% 100 ml @ 25 mls/hr IVPB Q8H [facility] Rx#: [id number] Oral 268 240 100 Output: Chest Tube Drainage 190 400 40 Chest Tube Left 190 400 40 Other: Voiding Method Diaper Diaper Diaper # Voids 3 1 # Bowel Movements 1 0 - Exam GENERAL DESCRIPTION: Middle-age male lying in bed in no distress RESPIRATORY SYSTEM: Unlabored breathing , decreased breath sounds at bases HEART: S1 S2 regular rate and rhythm , ABDOMEN: Soft , no tenderness EXTREMITIES: No edema feet - Labs CBC & Chem 7: 10/04/24 06:28 10/04/24 06:28 Labs: Abnormal Lab Results - Last 24 Hours (Table) 10/05/24 10/05/24 10/06/24 Range/Units 16:21 20:58 06:24 POC Glucose (mg/dL) 303 H 225 H 204 H (70-110) mg/dL 10/06/24 Range/Units 11:22 POC Glucose (mg/dL) 219 H (70-110) mg/dL Assessment and Plan (1) Leukocytosis Current Visit: Yes Status: Acute Code(s): D72.829 - ELEVATED WHITE BLOOD CELL COUNT, UNSPECIFIED SNOMED Code(s): 919039434 (2) Pneumonia Current Visit: Yes Status: Acute Code(s): J18.9 - PNEUMONIA, UNSPECIFIED ORGANISM SNOMED Code(s): 195514600 Plan: 1patient presenting to the hospital for evaluation of increasing shortness of breath in this patient who did have evidence of bilateral effusion and basilar atelectasis more on the left side patient did have elevated white count apparently he did have elevated procalcitonin at the [facility], concerning for possible pneumonia question of community-acquired versus gram- negative less likely MRSA 2- MRSA nasal screen has been negative blood cultures are negative pleural fluid culture negative 3patient did have chest ultrasound concerning for 8 cm loculated left effusion, patient status post IR drainage of this fluid chest tube placement and cultures so far negative, patient has been evaluated by CT surgery and did have alteplase infusion to help drain the fluid repeat x-ray did shows small amount of fluid collection but no pneumothorax 3-patient to continue with Zosyn and monitor clinical course closely Dictation was produced using [employer] dictation software. please excuse any grammatical, word or spelling errors. Time with Patient: Less than 30
--- NOTE | 2024-10-06 13:05 | P.PN ---
Subjective Progress Note Date: 10/06/24 Principal diagnosis: Pneumonia. This is a 59-year-old male patient with a known history of schizophrenia and resides in a adult foster care setting who had been brought into [facility] with increasing shortness of breath on September 22, 2024. He was requiring Airvo high flow oxygen and not showing much improvement and was transferred here direct admit to the selective care unit today. Chest x-ray here reveals bilateral pleural effusion and basilar infiltrates left greater than right. Correlate for underlying CHF. Possible pneumonia. Large lobulated density in the left lobe. He is currently sitting up in a chair. Awake and alert. Somewhat uncooperative. A safety specialist is at the bedside. Continuously taking off his Airvo high flow oxygen device. This is currently set at 50 L and 80% FiO2. Procalcitonin at [place] was 2.40. He has been initiated on DuoNeb and elations, vancomycin and Zosyn. Ativan as needed. White count 14.9. Hemoglobin 13.9. Platelets 146. Sodium 136. Potassium 3.6. Bicarb 29. BUN 25. Creatinine 0.71. Glucose 157. He currently denies any worsening shortness of breath, cough or congestion. He is not clear as to why he was admitted. No family at the bedside. patient was seen today on 09/27/2024, patient remains at hypoxic, remains on Airvo at 50% FiO2 and 50 L flow patient is basically about the same seems to be more comfortable, he had a safety specialist at bedside. As at times he seems to be quite agitated and restless. Ultrasound of the chest was reviewed, may have some debris in the pleural effusion, and there is also lung tissue, hence am not planning thoracentesis at this point. My recommendation to continue antibiotics and diuretics, and continue to monitor, we will decide whether the patient could benefit from thoracentesis or a pigtail catheter placement.WBC count is 15.8 hemoglobin 13.2 basic metabolic profile is normal renal profile is normalLegionella antigen is negative. Procalcitonin at [place] was +2.40 Patient was seen today on 09/28/2024, basically the patient is about the same, remains on Airvo, 50% FiO2 and 50% liters flow, mental status is basically about the same, patient is encephalopathic, reviewed the ultrasound of the chest, patient seems to have loculated pleural effusion and I am recommending a pigtail catheter placement next week by interventional radiology in the meantime continue antibiotics. Continues to have leukocytosis, continues to have relatively normal electrolytes. Patient had elevated procalcitonin level on admission Patient was seen today on 09/29/2024, patient is basically about the same, remains on Airvo, he has a safety specialist at bedside, patient does not seem to verbalize much, remains encephalopathic. I have recommended pigtail catheter placement for his complicated or loculated pleural effusion, this will be done by interventional radiology hopefully tomorrow. In the meantime patient is receiving antibiotics for his pneumonia and parapneumonic effusion. The patient is seen today September 30, 2024 in follow-up on the selective care unit. He is currently resting in bed. Awake and alert. jewel lathe operator remains at the bedside. He is continued on Airvo high flow oxygen at 45 L and 50% FiO2. Blood cultures revealing no growth thus far. White count 13.3. Hemoglobin 12.5. Platelets 190. Sodium 132. Potassium 3.5. Bicarb 27. BUN 21. Creatinine 0.73. Glucose 173. He is continued on Zosyn. Remains on broncho dilators. Plan is for pigtail catheter placement today for the left-sided loculated pleural effusion. Progress note dated October 01, 2024. 59-year-old male who is seen today in room 376. The patient is currently on Airvo, with settings of 50 L/min, and FiO2 of 85%. The patient is getting sa line at 75 cc an hour. A pigtail catheter was placed on the left side yesterday, by interventional radiology. Count 10.4, hemoglobin 12.6, hematocrit 38.7, and a platelet count of 173,000. Sodium 131, potassium 3.4, chloride 97, CO2 28, BUN 18, creatinine 0.63. Glucose is 245. Calcium 7.6. Progress note dated October 02, 2024. 59-year-old male seen in room 376. The patient is currently on Airvo at 50 L/min with an FiO2 of 80%. He continues on Zosyn. A left pigtail catheter is noted. The patient clinically is doing better. We encouraged him today to use his incentive spirometer, which apparently he was not using. We have asked the nurse to coach driver the patient, to use it on a hourly basis. Current labs include white count 11.3, hemoglobin 12.7, hematocrit 38.8, and a normal platelet count of 202,000. Sodium 133, potassium 3.7, chlorides 100, CO2 25, BUN 14, and creatinine 0.62. Glucose is 173. Albumin is 2.3. Calcium is 7.6. Progress note dated October 03, 2024. 59-year-old male who is seen today in room 376. Currently, the patient is on Airvo, with settings of 50 L/min, and an FiO2 of 70%. The patient has had a fluctuating mental status, over the last few days. Currently, white count is 11.3, hemoglobin 13.4, hematocrit 40.3, platelet count 215,000. The patient had a blood gas done, and his pO2 is 55, pCO2 36, pH is 7.51. Glucose is 304. Sodium 132, potassium 4.2, chloride 96, CO2 31, BUN 11, creatinine 0.69. Albumin is 2.3. Culture data has all been negative. Chest x-ray shows a left basilar pleural catheter in place, with decreasing size of moderate size pleural effusion with loculations. Progress note dated October 04, 2024. 59-year-old male who is seen today in room 376. He is awake and alert. He still on Airvo, with settings of 50 L/min, and a FiO2 of 65%. The patient does not manifest any signs or symptoms of respiratory difficulty or distress. He does continue on Zosyn. Current labs include a white count 9.9, hemoglobin 13.4, hematocrit 39.5, and a platelet count of 216,000. Sodium 132, potassium 3.9, chlorides 95, CO2 31, BUN 14, and creatinine 0.61. Glucose is 308. Albumin is 2.3. Cultures thus far are negative. Chest x-ray from October 03, has been reviewed. Progress note dated October 05, 2024. 59-year-old male seen in room 376. Sitter is in the room today. The patient continues on Airvo, at 40 L/min with an FiO2 of 50%. The patient is scheduled to have a CT scan of the chest on today. The patient continues on Zosyn. No IV fluids. Appears to be resting comfortably. No respiratory distress or difficulty. No new labs today other than a glucose of 266. CT scan of the chest shows a moderate loculated left-sided pleural fluid collection, with pleural drainage catheter noted. There is associated and adjacent left lung consolidation/atelectasis. There is a small to moderate right-sided pleural effusion as well. Progress note dated October 06, 2024. 59-year-old male seen again in room 376. There is a sitter in the room. The patient is on Airvo, with settings of 35 L/min, and an FiO2 of 40%. He is not receiving any fluids. He is on Zosyn. No new labs today other than a glucose of 219. Chest x-ray today shows diffuse left lung infiltrates, and edema. Pleural catheter is seen in the left side. There is no pneumothorax. Objective - Vital Signs Vital signs: Vital Signs Temp 98.2 F 10/06/24 11:08 Pulse 76 10/06/24 11:08 Resp 16 10/06/24 11:08 BP 151/75 10/06/24 11:08 Pulse Ox 95 10/06/24 12:22 FiO2 50 10/06/24 11:08 Intake & Output 10/05/24 10/06/24 10/06/24 18:59 06:59 18:59 Intake Total 468 240 100 Output Total 190 400 40 Balance 278 -160 60 Weight 57 kg Intake: Intake, IV Titration 200 Amount Piperacillin-Tazobactam 3 200 .375 gm In Sodium Chloride 0.9% 100 ml @ 25 mls/hr IVPB Q8H [facility] Rx#: [id number] Oral 268 240 100 Output: Chest Tube Drainage 190 400 40 Chest Tube Left 190 400 40 Other: Voiding Method Diaper Diaper Diaper # Voids 3 1 # Bowel Movements 1 0 - Exam No acute distress, currently on AIRVO. HEENT examination is grossly unremarkable. Mucous membranes are moist. No oral lesions. Neck supple. Full range of motion. No adenopathy thyromegaly or neck vein distention. Cardiovascular examination reveals regular rhythm rate. S1-S2 normal. No S3 or S4. No discernible murmur noted. Lungs reveal scattered bilateral rhonchi. No wheezes. No crackles. Breath sounds are equal bilaterally. Left pigtail catheter in place. Abdomen soft bowel sounds are heard. No masses or tenderness. Extremities are intact. No cyanosis clubbing or edema. Skin is without rash or lesion. Neurologic examination is brief but nonfocal. - Labs CBC & Chem 7: 10/04/24 06:28 10/04/24 06:28 Labs: Abnormal Lab Results - Last 24 Hours (Table) 10/05/24 10/05/24 10/06/24 Range/Units 16:21 20:58 06:24 POC Glucose (mg/dL) 303 H 225 H 204 H (70-110) mg/dL 10/06/24 Range/Units 11:22 POC Glucose (mg/dL) 219 H (70-110) mg/dL Assessment and Plan Assessment: Acute hypoxemic respiratory failure secondary to suspected bilateral pneumonia, bilateral pleural effusion, possible underlying diastolic congestive heart failure. Loculated left-sided pleural effusion, S/P pigtail catheter placement, September 30, 2024. Leukocytosis secondary to above. Atrial fibrillation with a rapid ventricular response. Schizoaffective disorder. History of bipolar disorder with anxiety/depression. Diabetes mellitus, type II. History of mild intermittent chronic bronchial asthma. History of CVA. Hypertension. Gastroesophageal reflux disease. [facility] resident. Plan: Plan dated October 01, 2024. The patient is seen today in room 376. The patient continues on Airvo, at 50 L/min, with an FiO2 of 85%. The patient is getting saline at 75 cc an hour. A pigtail catheter was placed by interventional radiology, in the left chest. That was done yesterday, September 30. Labs, x-rays, and medications are reviewed. The patient is overall prognosis remains guarded. We will continue to follow the patient, make recommendations along the way. Plan dated October 02, 2024. The patient is seen today in room 376. The patient continues on Airvo. Settings include 50 L/min with an FiO2 of 80%. The patient continues on Zosyn. No IV fluids. The left pigtail catheter is in place. The patient continues on Zosyn as mentioned. Labs, x-rays, medications are reviewed. Will continue to follow the patient, make recommendations along the way. Clinically, the patient looks relatively stable. We do encourage him to use the incentive spirometer, every hour while awake. Plan dated October 03, 2024. The patient is seen today in room 376. The patient continues on Airvo, with settings of 50 L/min, FiO2 70%. Labs, x-rays, and all medications reviewed. The effusion on the left side, seems to be improving based on today's chest x- ray. The pigtail catheter remains in place. Additional recommendations and suggestions are forthcoming. Prognosis is guarded. We will continue to follow the patient, and make recommendations along the way. The patient does continue on Zosyn. Plan dated October 04, 2024. The patient is seen today in room 376. The patient continues on Airvo, and also on IV Zosyn. Labs, x-rays, and medications are reviewed. His chest x-ray from October 03 has been reviewed. Patient's overall prognosis remains guarded. We will continue to follow the patient, make recommendations where appropriate. The patient has a pigtail catheter in place, on the left side. Plan dated October 05, 2024. The patient seen in room 376. He continues on Airvo. Settings include 40 L/min with an FiO2 of 50%. The patient continues on Zosyn. He is not receiving any IV fluids. CT scan of the chest shows a complex left-sided pleural effusion, with loculations. Cardiothoracic surgery has been consulted. We will continue to follow along. Prognosis is guarded. Labs, x-rays, and medications are revi ewed. Plan dated October 06, 2024. The patient is seen today in room 376. The patient continues on Airvo, with settings of 35 L/min and an FiO2 of 40%. He is not receiving any IV fluids. The patient continues on Zosyn. The patient is in normal sinus rhythm. Labs, x-rays, and medications are reviewed. Cardiothoracic surgery is following this patient, and instilling tPA, and alpha dornase, through the left pleural catheter. We will continue to follow and make recommendations where appropri ate. Prognosis is guarded. Time with Patient: Less than 30
[2024-10-06 16:49] LABS: Glucose,Whole Blood 246 mg/dL (70-110)
[2024-10-06 20:38] LABS: Glucose,Whole Blood 257 mg/dL (70-110)
[2024-10-07 06:14] LABS: Glucose,Whole Blood 258 mg/dL (70-110)
--- NOTE | 2024-10-07 07:38 | XR ---
EXAMINATION TYPE: XR chest 1V portable DATE OF EXAM: 10/07/2024 6:54 AM COMPARISON: 10/06/2024 CLINICAL INDICATION: Male, 59 years old with history of Loculated left pleural effusion, , FINDINGS: Lung volumes. Heart is normal size. Patchy interstitial opacities throughout the right lung are simil ar. Hazy patchy densities throughout the left lung similar to slightly increased. Left basilar pigtai l pleural drain remains in place. IMPRESSION: 1. Similar patchy interstitial densities on the right. 2. Hazy and patchy densities on the left slightly increased. Left-sided pleural catheter remains in p lace. [facility], Workstation: [employer] [id number], 10/07/2024 7:35 AM
[2024-10-07 08:43] LABS: Basophils # (A) 0.1 k/uL (0-0.2); Basophils % (A) 0 %; Eosinophils % (A) 0 %; HCT 40.5 % (39.0-53.0); HGB 13.3 gm/dL (13.0-17.5); Lymphocytes # (A) 1.3 k/uL (1.0-4.8); Lymphocytes % (A) 9 %; MCHC 32.9 g/dL (31.0-37.0); MCV 94.1 fL (80.0-100.0); Mean Platelet Volume 8.2; Monocytes # (A) 1.5 k/uL (0-1.0); Monocytes % (A) 10 %; Neutrophils # (A) 11.9 k/uL (1.3-7.7); Neutrophils % (A) 79 %; Platelet Count 310 k/uL (150-450); RDW 13.7 % (11.5-15.5); WBC 15.1 k/uL (3.8-10.6)
--- NOTE | 2024-10-07 09:21 | P.PN ---
Subjective Progress Note Date: 10/07/24 Principal diagnosis: Persistent left pleural effusion. Past medical history significant for asthma, COPD, CVA, diabetes mellitus type 2, hypertension, thyroid disorder, GERD, anxi ety, depression, bipolar disorder, and schizoaffective disorder. POD #7 placement of left pleural pigtail catheter by interventional radiology. The patient was seen and examined in follow-up today October 07, 2024 at his bedside on the third floor cardiac stepdown unit. He is currently laying in bed, is awake, alert, oriented x 2, to person and place. He has a sitter present at his bedside. The patient is more alert this morning and answering questions appropriately. Oxygen saturations are 98% on 10 L high flow nasal cannula. He is achieving 750 mL on his incentive spirometry with encouragement. Left pleural pigtail catheter remains in place to low continuous wall suction - 20 cm H2O. No airleak is present. Draining thin serous drainage with 600 mL of drainage out in the last 24 hours. He was instilled with a second dose of alteplase/dornase yesterday through the left pleural pigtail catheter. Chest x- ray results reviewed. Objective - Vital Signs Vital signs: Vital Signs Temp 98.1 F 10/07/24 08:00 Pulse 67 10/07/24 08:00 Resp 16 10/07/24 08:00 BP 135/67 10/07/24 08:00 Pulse Ox 94 L 10/07/24 08:02 FiO2 50 10/06/24 11:08 Intake & Output 10/06/24 10/07/24 10/07/24 18:59 06:59 18:59 Intake Total 850 Output Total 40 60 Balance 810 -60 Weight 56 kg Intake: Oral 850 Output: Chest Tube Drainage 40 60 Chest Tube Left 40 60 Other: Voiding Method Diaper Diaper # Voids 3 1 # Bowel Movements 1 1 - Exam CONSTITUTIONAL: Appears comfortable, cooperative, no acute distress RESPIRATORY: Lungs sounds diminished to his bilateral bases, left greater than right, few scattered rhonchi. Respirations symmetrical, nonlabored. Currently on 10 L high flow nasal cannula and oxygen saturation 98%. Able to achieve 750 mL on his incentive spirometry. Strong nonproductive cough. CARDIOVASCULAR: S1, S2 present. Regular rate and rhythm, sinus rhythm on telemetry. Palpable peripheral pulses bilaterally. No edema present. No calf pain or tenderness noted. GASTROINTESTINAL: Abdomen soft, nontender, nondistended. Active bowel sounds present 4 quadrants. Tolerating diet. GENITOURINARY: Continues to void, episodes of incontinence with diaper/brief in place. INTEGUMENTARY: Skin is warm and dry with no clubbing or cyanosis present. NEUROLOGIC: No focal deficits. MUSKULOSKELETAL: Able to move all extremities, strength equal bilaterally. PSYCHIATRIC: Alert and oriented to person place and time, flat affect, intact judgment and insight. INVASIVE LINES AND TUBES: Left pleural pigtail catheter in place to low continuous wall suction -20 cm H2O. No air leak is present. Draining thin serous drainage with 60 mL output in the last 24 hours. - Allied health notes Allied health notes reviewed: nursing - Labs CBC & Chem 7: 10/07/24 07:34 10/04/24 06:28 Labs: Abnormal Lab Results - Last 24 Hours (Table) 10/06/24 10/06/24 10/06/24 Range/Units 11:22 16:48 20:36 WBC (3.8-10.6) k/uL Neutrophils # (1.3-7.7) k/uL Monocytes # (0-1.0) k/uL POC Glucose (mg/dL) 219 H 246 H 257 H (70-110) mg/dL 10/07/24 10/07/24 Range/Units 06:13 07:34 WBC 15.1 H (3.8-10.6) k/uL Neutrophils # 11.9 H (1.3-7.7) k/uL Monocytes # 1.5 H (0-1.0) k/uL POC Glucose (mg/dL) 258 H (70-110) mg/dL - Imaging and Cardiology Chest x-ray: report reviewed, image reviewed Assessment and Plan Assessment: Loculated left-sided pleural effusion, status post pigtail catheter placement on September 30, 2024 by interventional radiology, status post instillation of alteplase/dornase yesterday October 05, 2024. Acute hypoxemic respiratory failure secondary to suspected bilateral pneumonia, bilateral pleural effusions, and possible underlying diastolic congestive heart failure, currently on Airvo Leukocytosis, likely secondary to above Atrial fibrillation with rapid ventricular response on admission twelve-lead EKG with a heart rate of 164 bpm Hypertension History of CVA Diabetes mellitus type 2, insulin-dependent Schizoaffective disorder History of bipolar disorder with anxiety/depression GERD Medical debility Plan: We will instill a third dose of alteplase/dornase, pleural instillation through his left pigtail catheter today. Wean oxygen as tolerated, bronchodilators and oxygen management per pulmonary/critical care medicine recommendations. Encourage use of incentive spirometry 10 times every hour while awake. Increase activity as tolerated. Out of bed for all meals. Continue to monitor daily chest x-rays. Keep left pleural pigtail catheter in place to low continuous wall suction -20 cm H2O. Record strict and accurate I's and O's. The patient had alteplase/dornase pleural instillation second dose completed yesterday October 06, 2024 He had 600 mL of thin serosanguineous drainage post alteplase/dornase instillation. Medical management other comorbidities per internal medicine, infectious disease and pulmonary/critical care medicine. More recommendations to follow based on patient's clinical course. Time with Patient: Greater than 30
[2024-10-07 11:37] LABS: Glucose,Whole Blood 230 mg/dL (70-110)
[2024-10-07] MEDS: DORNASE ALFA 5 MG in SODIUM CHLORIDE 0.9% 50 ML IRRIGATION ONE (12:17)
[2024-10-07] MEDS: ALTEPLASE 10 MG in SODIUM CHLORIDE 0.9% 50 ML IRRIGATION ONE (12:18)
--- NOTE | 2024-10-07 16:16 | P.PN ---
Subjective Progress Note Date: 10/07/24 This is a 59-year-old male patient with a known history of schizophrenia and resides in a adult foster care setting who had been brought into [facility] with increasing shortness of breath on September 22, 2024. He was requiring Airvo high flow oxygen and not showing much improvement and was mike sferred here direct admit to the selective care unit today. Chest x-ray here reveals bilateral pleural effusion and basilar infiltrates left greater than right. Correlate for underlying CHF. Possible pneumonia. Large lobulated density in the left lobe. He is currently sitting up in a chair. Awake and alert. Somewhat uncooperative. A process safety engineering technologist is at the bedside. Continuously taking off his Airvo high flow oxygen device. This is currently set at 50 L and 80% FiO2. Procalcitonin at [place] was 2.40. He has been initiated on DuoNeb and elations, vancomycin and Zosyn. Ativan as needed. White count 14.9. Hemoglobin 13.9. Platelets 146. Sodium 136. Potassium 3.6. Bicarb 29. BUN 25. Creatinine 0.71. Glucose 157. He currently denies any worsening shortness of breath, cough or congestion. He is not clear as to why he was admitted. No family at the bedside. patient was seen today on 09/27/2024, patient remains at hypoxic, remains on Airvo at 50% FiO2 and 50 L flow patient is basically about the same seems to be more comfortable, he had a process safety engineering technologist at bedside. As at times he seems to be quite agitated and restless. Ultrasound of the chest was reviewed, may have some debris in the pleural effusion, and there is also lung tissue, hence am not planning thoracentesis at this point. My recommendation to continue antibiotics and diuretics, and continue to monitor, we will decide whether the patient could benefit from thoracentesis or a pigtail catheter placement.WBC count is 15.8 hemoglobin 13.2 basic metabolic profile is normal renal profile is normal Legionella antigen is negative. Procalcitonin at [place] was +2.40 Patient was seen today on 09/28/2024, basically the patient is about the same, remains on Airvo, 50% FiO2 and 50% liters flow, mental status is basically about the same, patient is encephalopathic, reviewed the ultrasound of the chest, patient seems to have loculated pleural effusion and I am recommending a pigtail catheter placement next week by interventional radiology in the meantime continue antibiotics. Continues to have leukocytosis, continues to have relatively normal electrolytes. Patient had elevated procalcitonin level on admission Patient was seen today on 09/29/2024, patient is basically about the same, erik ins on Airvo, he has a process safety engineering technologist at bedside, patient does not seem to verbalize much, remains encephalopathic. I have recommended pigtail catheter placement for his complicated or loculated pleural effusion, this will be done by interventional radiology hopefully tomorrow. In the meantime patient is receiving antibiotics for his pneumonia and parapneumonic effusion. The patient is seen today September 30, 2024 in follow-up on the selective care unit. He is currently resting in bed. Awake and alert. radiology director remains at the bedside. He is continued on Airvo high flow oxygen at 45 L and 50% FiO2. Blood cultures revealing no growth thus far. White count 13.3. Hemoglobin 12.5. Platelets 190. Sodium 132. Potassium 3.5. Bicarb 27. BUN 21. Creatinine 0.73. Glucose 173. He is continued on Zosyn. Remains on bronchodilators. Plan is for pigtail catheter placement today for the left- sided loculated pleural effusion. Progress note dated October 01, 2024. 59-year-old male who is seen today in room 376. The patient is currently on Airvo, with settings of 50 L/min, and FiO2 of 85%. The patient is getting saline at 75 cc an hour. A pigtail catheter was placed on the left side yesterday, by interventional radiology. Count 10.4, hemoglobin 12.6, hematocrit 38.7, and a platelet count of 173,000. Sodium 131, potassium 3.4, chloride 97, CO2 28, BUN 18, creatinine 0.63. Glucose is 245. Calcium 7.6. Progress note dated October 02, 2024. 59-year-old male seen in room 376. The patient is currently on Airvo at 50 L/min with an FiO2 of 80%. He continues on Zosyn. A left pigtail catheter is noted. The patient clinically is doing better. We encouraged him today to use his incentive spirometer, which apparently he was not using. We have asked the nurse to assistant track coach the patient, to use it on a hourly basis. Current labs include white count 11.3, hemoglobin 12.7, hematocrit 38.8, and a normal platelet count of 202,000. Sodium 133, potassium 3.7, chlorides 100, CO2 25, BUN 14, and creatinine 0.62. Glucose is 173. Albumin is 2.3. Calcium is 7.6. Progress note dated October 03, 2024. 59-year-old male who is seen today in room 376. Currently, the patient is on Airvo, with settings of 50 L/min, and an FiO2 of 70%. The patient has had a fluctuating mental status, over the last few days. Currently, white count is 11.3, hemoglobin 13.4, hematocrit 40.3, platelet count 215,000. The patient had a blood gas done, and his pO2 is 55, pCO2 36, pH is 7.51. Glucose is 304. Sodium 132, potassium 4.2, chloride 96, CO2 31, BUN 11, creatinine 0.69. Al bumin is 2.3. Culture data has all been negative. Chest x-ray shows a left basilar pleural catheter in place, with decreasing size of moderate size pleural effusion with loculations. Progress note dated October 04, 2024. 59-year-old male who is seen today in room 376. He is awake and alert. He still on Airvo, with settings of 50 L/min, and a FiO2 of 65%. The patient does not manifest any signs or symptoms of respiratory difficulty or distress. He does continue on Zosyn. Current labs include a white count 9.9, hemoglobin 13.4, hematocrit 39.5, and a platelet count of 216,000. Sodium 132, potassium 3.9, chlorides 95, CO2 31, BUN 14, and creatinine 0.61. Glucose is 308. Albumin is 2.3. Cultures thus far are negative. Chest x-ray from October 03, has been reviewed. Progress note dated October 05, 2024. 59-year-old male seen in room 376. Sitter is in the room today. The patient continues on Airvo, at 40 L/min with an FiO2 of 50%. The patient is scheduled to have a CT scan of the chest on today. The patient continues on Zosyn. No IV fluids. Appears to be resting comfortably. No respiratory distress or difficulty. No new labs today other than a glucose of 266. CT scan of the chest shows a moderate loculated left-sided pleural fluid collection, with pleural drainage catheter noted. There is associated and adjacent left lung consolidation/atelectasis. There is a small to moderate right-sided pleural effusion as well. Progress note dated October 06, 2024. 59-year-old male seen again in room 376. There is a sitter in the room. The patient is on Airvo, with settings of 35 L/min, and an FiO2 of 40%. He is not receiving any fluids. He is on Zosyn. No new labs today other than a glucose of 219. Chest x-ray today shows diffuse left lung infiltrates, and edema. Pleural catheter is seen in the left side. There is no pneumothorax. Is on 10/07/2024, the patient is being seen for a follow-up. The patient has schizoaffective disorder/bipolar disorder/depression in addition to COPD/asthma, diabetes mellitus type 2, hypertension, hypothyroidism and history of diabetes mellitus type 2. The patient currently is being treated for a parapneumonic left-sided pleural effusion/exudate with loculation. The patient has a pigtail catheter inserted by interventional radiology and he is postop day #7. He remains on oxygen at 10 L/min nasal cannula with a pulse ox of 98%. Using incentive spirometer and is pulling approximately 750. Total amount of drainage over the past 24 hours has been in the order of 600 cc. He is receiving alteplase/dornase through the pigtail catheter and he has already received a total of 2 treatments. A third is to be administered today. The white cell count of 15 with a hemoglobin of 13.3 and a platelet count of 310. Electrolytes were not checked on today's evaluation. In terms of antibiotic coverage, the patient remains on IV Zosyn. The patient is also on Spiriva 1 inhalation a day and Ventolin nebulized treatments 4 times a day. Chest x-ray from today shows hazy and patchy densities in the left along with a left-sided pigtail catheter in place. Objective - Vital Signs Vital signs: Vital Signs Temp 98.1 F 10/07/24 08:00 Pulse 86 10/07/24 12:00 Resp 16 10/07/24 12:00 BP 165/71 10/07/24 12:00 Pulse Ox 91 L 10/07/24 12:00 FiO2 50 01/05/25 11:08 Intake & Output 10/06/24 10/07/24 10/07/24 18:59 06:59 18:59 Intake Total 850 Output Total 40 60 Balance 810 -60 Weight 56 kg Intake: Oral 850 Output: Chest Tube Drainage 40 60 Chest Tube Left 40 60 Other: Voiding Method Diaper Diaper Diaper # Voids 3 1 # Bowel Movements 1 1 - Exam CONSTITUTIONAL: Appears comfortable, cooperative, no acute distress RESPIRATORY: Lungs sounds diminished to his bilateral bases, left greater than right, few scattered rhonchi. Respirations symmetrical, nonlabored. Currently on 10 L high flow nasal cannula and oxygen saturation 98%. Able to achieve 750 mL on his incentive spirometry. Strong nonproductive cough. CARDIOVASCULAR: S1, S2 present. Regular rate and rhythm, sinus rhythm on telemetry. Palpable peripheral pulses bilaterally. No edema present. No calf pain or tenderness noted. GASTROINTESTINAL: Abdomen soft, nontender, nondistended. Active bowel sounds present 4 quadrants. Tolerating diet. GENITOURINARY: Continues to void, episodes of incontinence with diaper/brief in place. INTEGUMENTARY: Skin is warm and dry with no clubbing or cyanosis present. NEUROLOGIC: No focal deficits. MUSKULOSKELETAL: Able to move all extremities, strength equal bilaterally. PSYCHIATRIC: Alert and oriented to person place and time, flat affect, intact judgment and insight. INVASIVE LINES AND TUBES: Left pleural pigtail catheter in place to low continuous wall suction -20 cm H2O. No air leak is present. Draining thin serous drainage with 60 mL output in the last 24 hours. - Labs CBC & Chem 7: 10/07/24 07:34 10/04/24 06:28 Labs: Abnormal Lab Results - Last 24 Hours (Table) 10/06/24 10/06/24 10/07/24 Range/Units 16:48 20:36 06:13 WBC (3.8-10.6) k/uL Neutrophils # (1.3-7.7) k/uL Monocytes # (0-1.0) k/uL POC Glucose (mg/dL) 246 H 257 H 258 H (70-110) mg/dL 10/07/24 10/07/24 Range/Units 07:34 11:36 WBC 15.1 H (3.8-10.6) k/uL Neutrophils # 11.9 H (1.3-7.7) k/uL Monocytes # 1.5 H (0-1.0) k/uL POC Glucose (mg/dL) 230 H (70-110) mg/dL Assessment and Plan Plan: Acute hypoxemic respiratory failureSecondary to pneumonia and parapneumonic loculated left-sided pleural effusion and the patient has a pigtail catheter inserted in the left hemithorax and output is being monitored. Currently on 210 L of O2 nasal cannula. The pleural fluid is an exudate Left lower lobe pneumonia with a complicated loculated parapneumonic left-sided pleural effusion status post pigtail catheter insertion on 09/30/2024 Dyspnea secondary to above Loculated left-sided pleural effusion, S/P pigtail catheter placement, September 30, 2024. Leukocytosis secondary to above. Atrial fibrillation with a rapid ventricular response, currently in normal sinus mechanism Schizoaffective disorder. History of bipolar disorder with anxiety/depression. Diabetes mellitus, type II. History of mild intermittent chronic bronchial asthma. History of CVA. Hypertension. Gastroesophageal reflux disease. [facility] resident. Plan: Titrate oxygen flow to maintain saturation above 90%, currently on 10 L Continue IV Zosyn Keep the pigtail catheter in place and monitor the output A third dose of alteplase/dornase to be given today Continue Spiriva Continue albuterol nebulizer treatments 4 times a day Continue metoprolol 25 mg p.o. twice a day and Cardizem 360 mg CD1 tablet a day Continue aspirin 81 mg p.o. daily Continue Depakote and amantadine and trazodone Daily chest x-rays Will continue
[2024-10-07 16:32] LABS: Glucose,Whole Blood 397 mg/dL (70-110)
--- NOTE | 2024-10-07 16:53 | P.PN ---
Progress Note - Text Progress Note Date: 10/07/24 patient is a 59-year-old gentleman with past medical history significant for schizophrenia who is a resident of a adult foster care was transferred to [facility] from [facility] for worsening respiratory status. Patient initially presented to [facility] for shortness of breath and chest pain for 4 to 5 days. According to medical records, patient was complaining of shortness of breath on exertion and chest pain that was pleuritic in nature worsened by taking deep breaths. Patient was also complaining of lethargy and weakness. There is no complaint of cough. There was no complaint of fever or chills. Patient was worked up in [facility], initial CT chest done showed bilateral lower lobe consolidation greater on the left suspicious for pneumonia. Patient was admitted there and was started on IV antibiotics. Patient also had 2D echo done that showed normal LV systolic function with LVEF of 66 65%, there was some diastolic dysfunction present. No valvular pathology seen. While at [facility], patient respiratory status worsened, patient was requiring heated high flow. Because of respiratory status, transfer was requested and patient was transferred to [facility] Patient admitted to internal medicine service 09/27. Patient seen and examined. Patient is doing better compared to yesterday, patient did not answer many of my questions. 09/28. Patient seen and examined. Patient continues to be on Airvo. 09/29. Patient seen examined. Patient was agitated overnight and received Ativan. Continues to require heated high flow. 09/30. Patient seen and examined. Patient is not the best historian, not willing to answer any question. Patient being scheduled for IR guided pigtail catheter placement 10/01. Patient seen and examined. vital signs stable. Patient had IR guided pigtail catheter placement on left side. Patient lethargic, complaining of pain at the catheter site 10/02/2024. Patient seen and examined. Patient is awake, more responsive compared to yesterday. Patient states that he wants his tube to come out. Denies any chest pain 10/03/2024. Patient seen and examined. Patient had fever overnight 100.2. Currently on high flow Airvo at 70% FiO2, patient had A team this morning for shortness of breath. Currently doing better. 10/04. Patient seen and examined. Patient had low-grade fever overnight. Patient continues to have episodes when he becomes lethargic mostly at night but as the day goes by he becomes more alert. 1. Patient seen and examined. CT surgery evaluated, ordered alteplase instillation via pigtail catheter. . Patient seen and examined. Patient received pleural instillation of alteplase/dornase through his left chest pigtail catheter yesterday, draining thin serous drainage with 650 mL output. October 07: As of this afternoon patient had about 600 cc from his chest tube drain. On low continuous wall suction -20 cm water. On 10 L high flow nasal cannula. Has a congested cough. Decreased oral intake. Active Medications Acetaminophen (Acetaminophen Tab 325 Mg Tab) 650 mg PO Q4HR PRN PRN Reason: Fever and/ or Mild Pain Last Admin: 10/06/24 18:13 Dose: 650 mg Albuterol Sulfate (Albuterol Hfa Inhaler) 2 puff INHALATION RT-QID [facility] Last Admin: 10/07/24 15:12 Dose: 2 puff Albuterol Sulfate (Albuterol Hfa Inhaler) 2 puff INHALATION RT-Q2H PRN PRN Reason: Shortness Of Breath Or Wheezing Amantadine HCl (Amantadine Hcl 100 Mg Cap) 100 mg PO DAILY [facility] Last Admin: 10/07/24 12:21 Dose: 100 mg Aspirin (Aspirin 81 Mg) 81 mg PO DAILY [facility] Last Admin: 10/07/24 12:22 Dose: 81 mg Dextrose/Water (Dextrose 50% Syringe 50 Ml) 25 ml IVP PER PROTOCOL PRN; Protocol PRN Reason: Hypoglycemia Dextrose/Water (Dextrose 50% Syringe 50 Ml) 50 ml IVP PER PROTOCOL PRN; Protocol PRN Reason: Hypoglycemia Diltiazem HCl (Diltiazem Cd 180 Mg Cap.Er.24h) 360 mg PO DAILY [facility] Last Admin: 10/07/24 12:21 Dose: 360 mg Divalproex Sodium (Divalproex Er 500 Mg Tab.Er.24h) 500 mg PO TID [facility] Last Admin: 10/07/24 12:21 Dose: 500 mg Folic Acid (Folic Acid 1 Mg Tab) 1 mg PO DAILY [facility] Last Admin: 10/07/24 12:21 Dose: 1 mg Piperacillin Sod/Tazobactam (Sod 3.375 gm/ Sodium Chloride) 100 mls @ 25 mls/hr IVPB Q8H [facility]; Protocol Last Admin: 10/07/24 09:02 Dose: 25 mls/hr Insulin Aspart (Insulin Aspart (Novolog) 100 Unit/Ml Vial) 0 unit SQ ACHS [facility]; Protocol Last Admin: 10/07/24 12:29 Dose: 4 unit Lorazepam (Lorazepam 2 Mg/Ml Inj) 0.5 mg IV Q6HR PRN PRN Reason: Anxiety Last Admin: 10/06/24 01:28 Dose: 0.5 mg Metoprolol Tartrate (Metoprolol Tartrate 25 Mg Tab) 25 mg PO BID [facility] Last Admin: 10/07/24 12:22 Dose: 25 mg Miscellaneous Information (Pneumonia Protocol Utilized 1 Each Mis) 1 each PO ONCE PRN PRN Reason: Per Protocol Miscellaneous Information (Potassium Replacement Protocol 1 Each [facility]) 1 each MISCELLANE DAILY PRN; Protocol PRN Reason: Per Protocol Pantoprazole Sodium (Pantoprazole 40 Mg Tablet) 40 mg PO DAILY [facility] Last Admin: 10/07/24 12:22 Dose: 40 mg Tiotropium [place] (Tiotropium 2.5 Mcg Inhaler) 2 puff INHALATION RT-DAILY [facility] Last Admin: 10/07/24 08:02 Dose: 2 puff Trazodone HCl (Trazodone Hcl 50 Mg Tab) 50 mg PO HS PRN PRN Reason: SLEEP Last Admin: 10/05/24 21:01 Dose: 50 mg On examination: VITAL SIGNS: [98.1, 67, 16, 135 x 67, 94% on 10 L] GENERAL APPEARANCE: Reclining in bed, congested cough intermittently HEENT: Normal external appearance of nose and ear. Oral cavity normal EYES: Pupils equal. Conjunctiva normal. NECK: JVD not raised. Mass not palpable. RESPIRATORY: Respiratory effort increased, decreased breath sounds. Left-sided pigtail catheter to low continuous suction. Patient received 2 treatments of alteplase/dornase through the catheter. Received her third dose today. CARDIOVASCULAR: First and second sounds normal. No edema. ABDOMEN: Soft. Liver and spleen not palpable. No tenderness. No mass palpable. PSYCHIATRY: Able to answer simple questions INVESTIGATIONS, reviewed in the clinical context: October 07: White count 15.1 hemoglobin 13.[address] chest moderate size not simple loculated left-sided pleural effusion with lateral left basilar pleural drainage catheter. Associated with left lung consolidation/atelectasis. Also moderate-sized right-sided pleural effusion with associated right posterior compression atelectasis. Some patchy infiltrates Pleural fluid culture: Negative Assessment and plan -Acute hypoxemic respiratory failure, secondary to pleural effusion/pneumonia, slow to respond On 10 L nasal cannula -Bilateral pleural effusions, left greater than the right/parapneumonic effusion. Pigtail catheter placed by IR on September 30, 2024. Continues to have good output Patient had third round of alteplase/dornase infused today -Pneumonia suspect gram-negative organism IV Zosyn. Pleural fluid culture negative -Paroxysmal atrial fibrillation with rapid ventricular rate, currently in sinus rhythm Cardizem CD 360 mg a day. Lopressor 25 mg twice daily Leukocytosis secondary to above Schizoaffective disorder -Bipolar disorder with anxiety/depression -Diabetes mellitus, type II, chronically insulin, uncontrolled with hyperglycemia On sliding scale with coverage. Add scheduled NovoLog 6 units 3 times daily -Essential hypertension On Cardizem CD 360 mg -Gastroesophageal reflux disease Pepcid as needed
[2024-10-07] MEDS: INSULIN ASPART (NovoLOG) 100 UNIT/ML VIAL SQ SCH (17:27)
[2024-10-07 20:29] LABS: Glucose,Whole Blood 338 mg/dL (70-110)
--- NOTE | 2024-10-08 05:42 | P.PN ---
Subjective Progress Note Date: 10/07/24 Principal diagnosis: Reason for follow-up is leukocytosis and pneumonia Patient is a 59-year-old male with a past medical history significant for Schizophrenia resident of adult foster care was sent to the [facility] concerning for increasing shortness of breath with subsequent worsening of his symptoms with the patient has been transferred to [facility] concerning for pneumonia. On today's evaluation that is 10/07/2023, patient has been afebrile, patient is breathing comfortably however is requiring high flow 10 L nasal cannula oxygen patient is sleepy did not answer any question no acute changes per the sitter at the bedside no vomiting diarrhea has been reported. Patient white count is up to 15.1 today no creatinine was done today cultures h as been negative Objective - Vital Signs Vital signs: Vital Signs Temp 98.1 F 10/07/24 08:00 Pulse 86 10/07/24 12:00 Resp 16 10/07/24 12:00 BP 165/71 10/07/24 12:00 Pulse Ox 91 L 10/07/24 12:00 FiO2 50 10/06/24 11:08 Intake & Output 10/06/24 10/07/24 10/07/24 18:59 06:59 18:59 Intake Total 850 358 Output Total 40 60 Balance 810 -60 358 Weight 56 kg Intake: Oral 850 358 Output: Chest Tube Drainage 40 60 Chest Tube Left 40 60 Other: Voiding Method Diaper Diaper Diaper # Voids 3 1 # Bowel Movements 1 1 - Exam GENERAL DESCRIPTION: Middle-age male lying in bed in no distress RESPIRATORY SYSTEM: Unlabored breathing , decreased breath sounds at bases HEART: S1 S2 regular rate and rhythm , ABDOMEN: Soft , no tenderness EXTREMITIES: No edema feet - Labs CBC & Chem 7: 10/07/24 07:34 10/04/24 06:28 Labs: Abnormal Lab Results - Last 24 Hours (Table) 10/06/24 10/06/24 10/07/24 Range/Units 16:48 20:36 06:13 WBC (3.8-10.6) k/uL Neutrophils # (1.3-7.7) k/uL Monocytes # (0-1.0) k/uL POC Glucose (mg/dL) 246 H 257 H 258 H (70-110) mg/dL 10/07/24 10/07/24 Range/Units 07:34 11:36 WBC 15.1 H (3.8-10.6) k/uL Neutrophils # 11.9 H (1.3-7.7) k/uL Monocytes # 1.5 H (0-1.0) k/uL POC Glucose (mg/dL) 230 H (70-110) mg/dL Assessment and Plan (1) Leukocytosis Current Visit: Yes Status: Acute Code(s): D72.829 - ELEVATED WHITE BLOOD CELL COUNT, UNSPECIFIED SNOMED Code(s): 449957739 (2) Pneumonia Current Visit: Yes Status: Acute Code(s): J18.9 - PNEUMONIA, UNSPECIFIED ORGANISM SNOMED Code(s): 103580031 Plan: 1patient presenting to the hospital for evaluation of increasing shortness of breath in this patient who did have evidence of bilateral effusion and basilar atelectasis more on the left side patient did have elevated white count apparently he did have elevated procalcitonin at the [facility], concerning for possible pneumonia question of community-acquired versus gram- negative less likely MRSA 2- MRSA nasal screen has been negative blood cultures are negative pleural fluid culture negative 3patient did have chest ultrasound concerning for 8 cm loculated left effusion, patient status post IR drainage of this fluid chest tube placement and cultures so far negative, patient has been evaluated by CT surgery and did have alteplase infusion to help drain the fluid repeat x-ray did shows small amount of fluid collection but no pneumothorax 3-patient did have resolution of the fever however the white count slightly up today continue to monitor closely for now continue with Zosyn and continue supportive care Dictation was produced using [employer] dictation software. please excuse any grammatical, word or spelling errors. Time with Patient: Less than 30
[2024-10-08 06:03] LABS: Glucose,Whole Blood 193 mg/dL (70-110)
--- NOTE | 2024-10-08 07:19 | XR ---
EXAMINATION TYPE: XR chest 1V portable DATE OF EXAM: 10/08/2024 7:04 AM COMPARISON: 10/07/2024 CLINICAL INDICATION: Male, 59 years old with history of Loculated left pleural effusion, , FINDINGS: Left basilar pleural catheter remains in place. Fairly similar pleural parenchymal opacities left hem ithorax, minimally improved at the left base. Mild interstitial density on the right persists. Some p atchy opacity periphery of the right base appears increased. Heart normal size. IMPRESSION: 1. Left basilar pleural catheter in place. Pleural parenchymal opacities on the left are similar to m inimally improved. 2. Ongoing interstitial density on the right. Some minimal increase in patchy opacity at the peripher y of the right base. [facility], , 10/08/2024 7:17 AM
[2024-10-08] MEDS: FLUCONAZOLE 100 MG TAB PO SCH (09:06)
[2024-10-08] MEDS: ALTEPLASE 10 MG in SODIUM CHLORIDE 0.9% 50 ML IRRIGATION ONE (09:52)
[2024-10-08] MEDS: DORNASE ALFA 5 MG in SODIUM CHLORIDE 0.9% 50 ML IRRIGATION ONE (09:52)
[2024-10-08 11:43] LABS: Glucose,Whole Blood 274 mg/dL (70-110)
--- NOTE | 2024-10-08 14:59 | P.PN ---
Progress Note - Text Progress Note Date: 10/08/24 patient is a 59-year-old gentleman with past medical history significant for schizophrenia who is a resident of a adult foster care was transferred to [facility] from [facility] for worsening respiratory status. Patient initially presented to [facility] for shortness of breath and chest pain for 4 to 5 days. According to medical records, patient was complaining of shortness of breath on exertion and chest pain that was pleuritic in nature worsened by taking deep breaths. Patient was also complaining of lethargy and weakness. There is no complaint of cough. There was no complaint of fever or chills. Patient was worked up in [facility], initial CT chest done showed bilateral lower lobe consolidation greater on the left suspicious for pneumonia. Patient was admitted there and was started on IV antibiotics. Patient also had 2D echo done that showed normal LV systolic function with LVEF of 66 65%, there was some diastolic dysfunction present. No valvular pathology seen. While at [facility], patient respiratory status worsened, patient was requiring heated high flow. Because of respiratory status, transfer was requested and patient was transferred to [facility] Patient admitted to internal medicine service 09/27. Patient seen and examined. Patient is doing better compared to yesterday, patient did not answer many of my questions. 09/28. Patient seen and examined. Patient continues to be on Airvo. 09/29. Patient seen examined. Patient was agitated overnight and received Ativan. Continues to require heated high flow. 09/30. Patient seen and examined. Patient is not the best historian, not willing to answer any question. Patient being scheduled for IR guided pigtail catheter placement 10/01. Patient seen and examined. vital signs stable. Patient had IR guided pigtail catheter placement on left side. Patient lethargic, complaining of pain at the catheter site 10/02/2024. Patient seen and examined. Patient is awake, more responsive compared to yesterday. Patient states that he wants his tube to come out. Denies any chest pain 10/03/2024. Patient seen and examined. Patient had fever overnight 100.2. Currently on high flow Airvo at 70% FiO2, patient had A team this morning for shortness of breath. Currently doing better. 10/04. Patient seen and examined. Patient had low-grade fever overnight. Patient continues to have episodes when he becomes lethargic mostly at night but as the day goes by he becomes more alert. 1. Patient seen and examined. CT surgery evaluated, ordered alteplase instillation via pigtail catheter. . Patient seen and examined. Patient received pleural instillation of alteplase/dornase through his left chest pigtail catheter yesterday, draining thin serous drainage with 650 mL output. October 07: As of this afternoon patient had about 600 cc from his chest tube drain. On low continuous wall suction -20 cm water. On 10 L high flow nasal cannula. Has a congested cough. Decreased oral intake. October 08: Continues to have increased output through the left-sided chest tube. Eating better with encouragement. Including Ensure.. Up in a recliner. Per PT OT yesterday only walked 2 feet. Alteplase was given through the chest tube again today. More thick output. FiO2 down to 6 L Active Medications Acetaminophen (Acetaminophen Tab 325 Mg Tab) 650 mg PO Q4HR PRN PRN Reason: Fever and/ or Mild Pain Last Admin: 10/08/24 09:56 Dose: 650 mg Albuterol Sulfate (Albuterol Hfa Inhaler) 2 puff INHALATION RT-QID [facility] Last Admin: 10/08/24 11:36 Dose: 2 puff Albuterol Sulfate (Albuterol Hfa Inhaler) 2 puff INHALATION RT-Q2H PRN PRN Reason: Shortness Of Breath Or Wheezing Amantadine HCl (Amantadine Hcl 100 Mg Cap) 100 mg PO DAILY [facility] Last Admin: 10/08/24 09:06 Dose: 100 mg Aspirin (Aspirin 81 Mg) 81 mg PO DAILY [facility] Last Admin: 10/08/24 09:06 Dose: 81 mg Dextrose/Water (Dextrose 50% Syringe 50 Ml) 25 ml IVP PER PROTOCOL PRN; Protocol PRN Reason: Hypoglycemia Dextrose/Water (Dextrose 50% Syringe 50 Ml) 50 ml IVP PER PROTOCOL PRN; Protocol PRN Reason: Hypoglycemia Diltiazem HCl (Diltiazem Cd 180 Mg Cap.Er.24h) 360 mg PO DAILY [facility] Last Admin: 10/08/24 09:06 Dose: 360 mg Divalproex Sodium (Divalproex Er 500 Mg Tab.Er.24h) 500 mg PO TID [facility] Last Admin: 10/08/24 09:06 Dose: 500 mg Fluconazole (Fluconazole 100 Mg Tab) 100 mg PO DAILY [facility]; Protocol Last Admin: 10/08/24 09:06 Dose: 100 mg Folic Acid (Folic Acid 1 Mg Tab) 1 mg PO DAILY [facility] Last Admin: 10/08/24 09:06 Dose: 1 mg Piperacillin Sod/Tazobactam (Sod 3.375 gm/ Sodium Chloride) 100 mls @ 25 mls/hr IVPB Q8H [facility]; Protocol Last Admin: 10/08/24 09:05 Dose: 25 mls/hr Insulin Aspart (Insulin Aspart (Novolog) 100 Unit/Ml Vial) 0 unit SQ ACHS [facility]; Protocol Last Admin: 10/08/24 12:04 Dose: 6 unit Insulin Aspart (Insulin Aspart (Novolog) 100 Unit/Ml Vial) 6 unit SQ AC-TID [facility] Last Admin: 10/08/24 12:03 Dose: 6 unit Lorazepam (Lorazepam 2 Mg/Ml Inj) 0.5 mg IV Q6HR PRN PRN Reason: Anxiety Last Admin: 10/06/24 01:28 Dose: 0.5 mg Metoprolol Tartrate (Metoprolol Tartrate 25 Mg Tab) 25 mg PO BID [facility] Last Admin: 10/08/24 09:06 Dose: 25 mg Miscellaneous Information (Pneumonia Protocol Utilized 1 Each Misc) 1 each PO ONCE PRN PRN Reason: Per Protocol Miscellaneous Information (Potassium Replacement Protocol 1 Each Misc) 1 each MISCELLANE DAILY PRN; Protocol PRN Reason: Per Protocol Pantoprazole Sodium (Pantoprazole 40 Mg Tablet) 40 mg PO DAILY [facility] Last Admin: 10/08/24 09:06 Dose: 40 mg Tiotropium [place] (Tiotropium 2.5 Mcg Inhaler) 2 puff INHALATION RT-DAILY [facility] Last Admin: 10/08/24 11:35 Dose: 2 puff Trazodone HCl (Trazodone Hcl 50 Mg Tab) 50 mg PO HS PRN PRN Reason: SLEEP Last Admin: 10/05/24 21:01 Dose: 50 mg On examination: VITAL SIGNS: 98.1, 79, 16, 160 x 69, 95%-6 L GENERAL APPEARANCE: Up in recliner HEENT: Normal external appearance of nose and ear. Oral cavity normal EYES: Pupils equal. Conjunctiva normal. NECK: JVD not raised. Mass not palpable. RESPIRATORY: Respiratory effort increased, decreased breath sounds. Left-sided pigtail catheter to low continuous suction. Patient received 2 treatments of alteplase/dornase through the catheter. Received her third dose today. CARDIOVASCULAR: First and second sounds normal. No edema. ABDOMEN: Soft. Liver and spleen not palpable. No tenderness. No mass palpable. PSYCHIATRY: Answering simple questions. INVESTIGATIONS, reviewed in the clinical context: October 07: White count 15.1 hemoglobin 13.[address] chest moderate size not simple loculated left-sided pleural effusion with lateral left basilar pleural drainage catheter. Associated with left lung consolidation/atelectasis. Also moderate-sized right-sided pleural effusion with associated right posterior compression atelectasis. Some patchy infiltrates Pleural fluid culture: Negative Assessment and plan -Acute hypoxemic respiratory failure, secondary to pleural effusion/pneumonia, slow to respond On 6 L nasal cannula -Bilateral pleural effusions, left greater than the right/parapneumonic effusion.: Slow to respond Pigtail catheter placed by IR on September 30, 2024. Continues to have good output Receiving alteplase/dornase including today -[id number] really contributing to her symptoms -Complicated pneumonia suspect gram-negative organism, with parapneumonic effusion IV Zosyn. Pleural fluid culture negative -Paroxysmal atrial fibrillation with rapid ventricular rate, currently in sinus rhythm Cardizem CD 360 mg a day. Lopressor 25 mg twice daily Leukocytosis secondary to above Schizoaffective disorder -Bipolar disorder with anxiety/depression Desyrel. Depakote -Diabetes mellitus, type II, chronically insulin, uncontrolled with hyperglycemia On sliding scale with coverage. Add scheduled NovoLog 6 units 3 times daily -Essential hypertension Cardizem CD 360 mg -Gastroesophageal reflux disease Pepcid as needed -Public guardian Receiving alteplase through the pigtail catheter. More thick output. Oxygen 6 L. Encourage oral intake. Medication treatment plan to continue.
--- NOTE | 2024-10-08 15:31 | P.PN ---
Subjective Progress Note Date: 10/08/24 Principal diagnosis: Reason for follow-up is leukocytosis and pneumonia Patient is a 59-year-old male with a past medical history significant for Schizophrenia resident of adult foster care was sent to the [facility] concerning for increasing shortness of breath with subsequent worsening of his symptoms with the patient has been transferred to [facility] concerning for pneumonia. On today's evaluation that is 10/08/2023, Patient is afebrile this morning patient still complaining of pain to the left side of the chest and some shortness of breath currently on a 10 L high flow oxygen patient did have good output from his chest tube after addition of alteplase no ventricular has been reported. No lab draw today Objective - Vital Signs Vital signs: Vital Signs Temp 98.1 F 10/08/24 08:00 Pulse 79 10/08/24 12:00 Resp 16 10/08/24 12:00 BP 160/69 10/08/24 12:00 Pulse Ox 95 10/08/24 12:00 FiO2 50 10/06/24 11:08 Intake & Output 10/07/24 10/08/24 10/08/24 18:59 06:59 18:59 Intake Total 834 595 Output Total 450 120 300 Balance 384 -120 295 Weight 70.5 kg Intake: Oral 834 595 Output: Chest Tube Drainage 450 120 300 Chest Tube Left 450 120 300 Other: Voiding Method Diaper Diaper Diaper # Voids 1 1 # Bowel Movements 1 - Exam GENERAL DESCRIPTION: Middle-age male lying in bed in no distress RESPIRATORY SYSTEM: Unlabored breathing , decreased breath sounds at bases HEART: S1 S2 regular rate and rhythm , ABDOMEN: Soft , no tenderness EXTREMITIES: No edema feet - Labs CBC & Chem 7: 10/07/24 07:34 10/04/24 06:28 Labs: Abnormal Lab Results - Last 24 Hours (Table) 10/07/24 10/07/24 10/08/24 Range/Units 16:30 20:24 06:01 POC Glucose (mg/dL) 397 H 338 H 193 H (70-110) mg/dL 10/08/24 Range/Units 11:42 POC Glucose (mg/dL) 274 H (70-110) mg/dL Assessment and Plan (1) Leukocytosis Current Visit: Yes Status: Acute Code(s): D72.829 - ELEVATED WHITE BLOOD CELL COUNT, UNSPECIFIED SNOMED Code(s): 451401507 (2) Pneumonia Current Visit: Yes Status: Acute Code(s): J18.9 - PNEUMONIA, UNSPECIFIED ORGANISM SNOMED Code(s): 194721981 Plan: 1patient presenting to the hospital for evaluation of increasing shortness of breath in this patient who did have evidence of bilateral effusion and basilar atelectasis more on the left side patient did have elevated white count apparently he did have elevated procalcitonin at the [facility], concerning for possible pneumonia question of community-acquired versus gram- negative less likely MRSA 2- MRSA nasal screen has been negative blood cultures are negative pleural fluid culture negative 3patient did have chest ultrasound concerning for 8 cm loculated left effusion, patient status post IR drainage of this fluid chest tube placement and cultures so far negative, patient has been evaluated by CT surgery and did have alteplase infusion to help drain the fluid repeat x-ray did shows small amount of fluid collection but no pneumothorax 3-patient did have resolution of the fever, currently being treated with Zosyn and monitor clinical course closely Dictation was produced using [employer] dictation software. please excuse any grammatical, word or spelling errors. Time with Patient: Less than 30
--- NOTE | 2024-10-08 16:13 | P.PN ---
Subjective Progress Note Date: 10/08/24 Principal diagnosis: Persistent left pleural effusion. Past medical history significant for asthma, COPD, CVA, diabetes mellitus type 2, hypertension, thyroid disorder, GERD, anxi ety, depression, bipolar disorder, and schizoaffective disorder. POD #8 placement of left pleural pigtail catheter by interventional radiology. The patient was seen and examined in follow-up today October 08, 2024 at his bedside on the third floor cardiac stepdown unit. He is currently laying in bed, is awake, alert, oriented x 2, to person and place. He has a sitter present at his bedside. The patient is more alert this morning and answering questions appropriately. Oxygen saturations are 96% on 10 L high flow nasal cannula. He is achieving 750 mL on his incentive spirometry with encouragement. Left pleural pigtail catheter remains in place to low continuous wall suction - 20 cm H2O. No airleak is present. Draining thin serous drainage with 850 mL of drainage out in the last 24 hours. He was instilled with a third dose of alteplase/dornase yesterday through the left pleural pigtail catheter. Chest x- ray results reviewed. Objective - Vital Signs Vital signs: Vital Signs Temp 98.2 F 10/08/24 04:00 Pulse 63 10/08/24 04:00 Resp 18 10/08/24 04:00 BP 154/71 10/08/24 04:00 Pulse Ox 98 10/08/24 04:00 FiO2 50 10/06/24 11:08 Intake & Output 10/07/24 10/08/24 10/08/24 18:59 06:59 18:59 Intake Total 834 Output Total 450 120 Balance 384 -120 Weight 70.5 kg Intake: Oral 834 Output: Chest Tube Drainage 450 120 Chest Tube Left 450 120 Other: Voiding Method Diaper Diaper # Voids 1 1 # Bowel Movements 1 - Exam CONSTITUTIONAL: Appears comfortable, cooperative, no acute distress RESPIRATORY: Lungs sounds diminished to his bilateral bases, left greater than right. Respirations symmetrical, nonlabored. Currently on 10 L high flow nasal cannula and oxygen saturation 95%. Able to achieve 750 mL on his incentive spirometry. Strong nonproductive cough. CARDIOVASCULAR: S1, S2 present. Regular rate and rhythm, sinus rhythm on telemetry. Palpable peripheral pulses bilaterally. No edema present. No calf pain or tenderness noted. GASTROINTESTINAL: Abdomen soft, nontender, nondistended. Active bowel sounds present 4 quadrants. Tolerating diet. GENITOURINARY: Continues to void, episodes of incontinence with diaper/brief in place. INTEGUMENTARY: Skin is warm and dry with no clubbing or cyanosis present. NEUROLOGIC: No focal deficits. MUSKULOSKELETAL: Able to move all extremities, strength equal bilaterally. PSYCHIATRIC: Alert and oriented to person place and time, flat affect, intact judgment and insight. INVASIVE LINES AND TUBES: Left pleural pigtail catheter in place to low continuous wall suction -20 cm H2O. No air leak is present. Draining thin ser ous drainage with 850 mL output in the last 24 hours. - Allied health notes Allied health notes reviewed: nursing - Labs CBC & Chem 7: 10/07/24 07:34 10/04/24 06:28 Labs: Abnormal Lab Results - Last 24 Hours (Table) 10/07/24 10/07/24 10/07/24 Range/Units 11:36 16:30 20:24 POC Glucose (mg/dL) 230 H 397 H 338 H (70-110) mg/dL 10/08/24 Range/Units 06:01 POC Glucose (mg/dL) 193 H (70-110) mg/dL - Imaging and Cardiology Chest x-ray: report reviewed, image reviewed Assessment and Plan Assessment: Loculated left-sided pleural effusion, status post pigtail catheter placement on September 30, 2024 by interventional radiology, status post instillation of alteplase/dornase yesterday October 05, 2024. Acute hypoxemic respiratory failure secondary to suspected bilateral pneumonia, bilateral pleural effusions, and possible underlying diastolic congestive heart failure, currently on Airvo Leukocytosis, likely secondary to above Atrial fibrillation with rapid ventricular response on admission twelve-lead EKG with a heart rate of 164 bpm Hypertension History of CVA Diabetes mellitus type 2, insulin-dependent Schizoaffective disorder History of bipolar disorder with anxiety/depression GERD Medical debility Plan: We will instill a fourth dose of alteplase/dornase, pleural instillation through his left pigtail catheter today. Wean oxygen as tolerated, bronchodilators and oxygen management per pulmonary/critical care medicine recommendations. Encourage use of incentive spirometry 10 times every hour while awake. Increase activity as tolerated. Out of bed for all meals. Continue to monitor daily chest x-rays. Keep left pleural pigtail catheter in place to low continuous wall suction -20 cm H2O. Record strict and accurate I's and O's. The patient had alteplase/dornase pleural instillation third dose completed yesterday October 07, 2024 He had 600 mL of thin serosanguineous drainage post alteplase/dornase instillation. Medical management other comorbidities per internal medicine, infectious disease and pulmonary/critical care medicine. More recommendations to follow based on patient's clinical course. Time with Patient: Less than 30
[2024-10-08 16:36] LABS: Glucose,Whole Blood 274 mg/dL (70-110)
[2024-10-08 20:59] LABS: Glucose,Whole Blood 382 mg/dL (70-110)
--- NOTE | 2024-10-08 21:56 | P.PN ---
Subjective Progress Note Date: 10/08/24 This is a 59-year-old male patient with a known history of schizophrenia and resides in a adult foster care setting who had been brought into [facility] with increasing shortness of breath on September 22, 2024. He was requiring Airvo high flow oxygen and not showing much improvement and was mike sferred here direct admit to the selective care unit today. Chest x-ray here reveals bilateral pleural effusion and basilar infiltrates left greater than right. Correlate for underlying CHF. Possible pneumonia. Large lobulated density in the left lobe. He is currently sitting up in a chair. Awake and alert. Somewhat uncooperative. A safety technician is at the bedside. Continuously taking off his Airvo high flow oxygen device. This is currently set at 50 L and 80% FiO2. Procalcitonin at [place] was 2.40. He has been initiated on DuoNeb and elations, vancomycin and Zosyn. Ativan as needed. White count 14.9. Hemoglobin 13.9. Platelets 146. Sodium 136. Potassium 3.6. Bicarb 29. BUN 25. Creatinine 0.71. Glucose 157. He currently denies any worsening shortness of breath, cough or congestion. He is not clear as to why he was admitted. No family at the bedside. patient was seen today on 09/27/2024, patient remains at hypoxic, remains on Airvo at 50% FiO2 and 50 L flow patient is basically about the same seems to be more comfortable, he had a safety technician at bedside. As at times he seems to be quite agitated and restless. Ultrasound of the chest was reviewed, may have some debris in the pleural effusion, and there is also lung tissue, hence am not planning thoracentesis at this point. My recommendation to continue antibiotics and diuretics, and continue to monitor, we will decide whether the patient could benefit from thoracentesis or a pigtail catheter placement.WBC count is 15.8 hemoglobin 13.2 basic metabolic profile is normal renal profile is normal Legionella antigen is negative. Procalcitonin at [place] was +2.40 Patient was seen today on 09/28/2024, basically the patient is about the same, remains on Airvo, 50% FiO2 and 50% liters flow, mental status is basically about the same, patient is encephalopathic, reviewed the ultrasound of the chest, patient seems to have loculated pleural effusion and I am recommending a pigtail catheter placement next week by interventional radiology in the meantime continue antibiotics. Continues to have leukocytosis, continues to have relatively normal electrolytes. Patient had elevated procalcitonin level on admission Patient was seen today on 09/29/2024, patient is basically about the same, erik ins on Airvo, he has a safety technician at bedside, patient does not seem to verbalize much, remains encephalopathic. I have recommended pigtail catheter placement for his complicated or loculated pleural effusion, this will be done by interventional radiology hopefully tomorrow. In the meantime patient is receiving antibiotics for his pneumonia and parapneumonic effusion. The patient is seen today September 30, 2024 in follow-up on the selective care unit. He is currently resting in bed. Awake and alert. children's minister remains at the bedside. He is continued on Airvo high flow oxygen at 45 L and 50% FiO2. Blood cultures revealing no growth thus far. White count 13.3. Hemoglobin 12.5. Platelets 190. Sodium 132. Potassium 3.5. Bicarb 27. BUN 21. Creatinine 0.73. Glucose 173. He is continued on Zosyn. Remains on bronchodilators. Plan is for pigtail catheter placement today for the left- sided loculated pleural effusion. Progress note dated October 01, 2024. 59-year-old male who is seen today in room 376. The patient is currently on Airvo, with settings of 50 L/min, and FiO2 of 85%. The patient is getting saline at 75 cc an hour. A pigtail catheter was placed on the left side yesterday, by interventional radiology. Count 10.4, hemoglobin 12.6, hematocrit 38.7, and a platelet count of 173,000. Sodium 131, potassium 3.4, chloride 97, CO2 28, BUN 18, creatinine 0.63. Glucose is 245. Calcium 7.6. Progress note dated October 02, 2024. 59-year-old male seen in room 376. The patient is currently on Airvo at 50 L/min with an FiO2 of 80%. He continues on Zosyn. A left pigtail catheter is noted. The patient clinically is doing better. We encouraged him today to use his incentive spirometer, which apparently he was not using. We have asked the nurse to assistant coach the patient, to use it on a hourly basis. Current labs include white count 11.3, hemoglobin 12.7, hematocrit 38.8, and a normal platelet count of 202,000. Sodium 133, potassium 3.7, chlorides 100, CO2 25, BUN 14, and creatinine 0.62. Glucose is 173. Albumin is 2.3. Calcium is 7.6. Progress note dated October 03, 2024. 59-year-old male who is seen today in room 376. Currently, the patient is on Airvo, with settings of 50 L/min, and an FiO2 of 70%. The patient has had a fluctuating mental status, over the last few days. Currently, white count is 11.3, hemoglobin 13.4, hematocrit 40.3, platelet count 215,000. The patient had a blood gas done, and his pO2 is 55, pCO2 36, pH is 7.51. Glucose is 304. Sodium 132, potassium 4.2, chloride 96, CO2 31, BUN 11, creatinine 0.69. Al bumin is 2.3. Culture data has all been negative. Chest x-ray shows a left basilar pleural catheter in place, with decreasing size of moderate size pleural effusion with loculations. Progress note dated October 04, 2024. 59-year-old male who is seen today in room 376. He is awake and alert. He still on Airvo, with settings of 50 L/min, and a FiO2 of 65%. The patient does not manifest any signs or symptoms of respiratory difficulty or distress. He does continue on Zosyn. Current labs include a white count 9.9, hemoglobin 13.4, hematocrit 39.5, and a platelet count of 216,000. Sodium 132, potassium 3.9, chlorides 95, CO2 31, BUN 14, and creatinine 0.61. Glucose is 308. Albumin is 2.3. Cultures thus far are negative. Chest x-ray from October 03, has been reviewed. Progress note dated October 05, 2024. 59-year-old male seen in room 376. Sitter is in the room today. The patient continues on Airvo, at 40 L/min with an FiO2 of 50%. The patient is scheduled to have a CT scan of the chest on today. The patient continues on Zosyn. No IV fluids. Appears to be resting comfortably. No respiratory distress or difficulty. No new labs today other than a glucose of 266. CT scan of the chest shows a moderate loculated left-sided pleural fluid collection, with pleural drainage catheter noted. There is associated and adjacent left lung consolidation/atelectasis. There is a small to moderate right-sided pleural effusion as well. Progress note dated October 06, 2024. 59-year-old male seen again in room 376. There is a sitter in the room. The patient is on Airvo, with settings of 35 L/min, and an FiO2 of 40%. He is not receiving any fluids. He is on Zosyn. No new labs today other than a glucose of 219. Chest x-ray today shows diffuse left lung infiltrates, and edema. Pleural catheter is seen in the left side. There is no pneumothorax. Is on 10/07/2024, the patient is being seen for a follow-up. The patient has schizoaffective disorder/bipolar disorder/depression in addition to COPD/asthma, diabetes mellitus type 2, hypertension, hypothyroidism and history of diabetes mellitus type 2. The patient currently is being treated for a parapneumonic left-sided pleural effusion/exudate with loculation. The patient has a pigtail catheter inserted by interventional radiology and he is postop day #7. He remains on oxygen at 10 L/min nasal cannula with a pulse ox of 98%. Using incentive spirometer and is pulling approximately 750. Total amount of drainage over the past 24 hours has been in the order of 600 cc. He is receiving alteplase/dornase through the pigtail catheter and he has already received a total of 2 treatments. A third is to be administered today. The white cell count of 15 with a hemoglobin of 13.3 and a platelet count of 310. Electrolytes were not checked on today's evaluation. In terms of antibiotic coverage, the patient remains on IV Zosyn. The patient is also on Spiriva 1 inhalation a day and Ventolin nebulized treatments 4 times a day. Chest x-ray from today shows hazy and patchy densities in the left along with a left-sided pigtail catheter in place. On 10/08/2024 patient is being seen for a follow-up. Patient's was seen sitting up in a chair today. He feels weak and quite debilitated. He is postop day #8 following a left-sided pigtail catheter insertion for a parapneumonic effusion. The tube is connected to low intermittent suction. The tube is draining around 850 cc of output over the past 24 hours. He was given the third dose of alteplase/dornase yesterday. Chest x-ray from today was reviewed and the findings are essentially stable and the patient has no significant left pleural effusion accumulation. The patient has pleural-parenchymal opacity in the left there are similar and probably slightly improved. Meanwhile, the patient remains on oxygen at 5 L/min nasal cannula with a pulse ox of 95%. The patient remains on IV Zosyn. In terms of blood work, labs are not available from today. Yesterday's labs were noted. Comorbidities include COPD, diabetes mellitus, previous history of CVA, hypertension, hypothyroidism, and the patient has an extensive psychiatric history including depression/bipolar disorder/schizoaffective disorder. Objective - Vital Signs Vital signs: Vital Signs Temp 98.1 F 10/08/24 08:00 Pulse 79 10/08/24 12:00 Resp 16 10/08/24 12:00 BP 160/69 10/08/24 12:00 Pulse Ox 95 10/08/24 12:00 FiO2 50 10/06/24 11:08 Intake & Output 10/07/24 10/08/24 10/08/24 18:59 06:59 18:59 Intake Total 834 595 Output Total 450 120 300 Balance 384 -120 295 Weight 70.5 kg Intake: Oral 834 595 Output: Chest Tube Drainage 450 120 300 Chest Tube Left 450 120 300 Other: Voiding Method Diaper Diaper Diaper # Voids 1 1 # Bowel Movements 1 - Exam CONSTITUTIONAL: Appears comfortable, cooperative, no acute distress currently on 5 L of oxygen nasal cannula RESPIRATORY: Lungs sounds diminished to his bilateral bases, left greater than right, few scattered rhonchi. Respirations symmetrical, nonlabored. Able to achieve 750 mL on his incentive spirometry. Strong nonproductive cough. CARDIOVASCULAR: S1, S2 present. Regular rate and rhythm, sinus rhythm on telemetry. Palpable peripheral pulses bilaterally. No edema present. No calf pain or tenderness noted. GASTROINTESTINAL: Abdomen soft, nontender, nondistended. Active bowel sounds present 4 quadrants. Tolerating diet. GENITOURINARY: Continues to void, episodes of incontinence with diaper/brief in place. INTEGUMENTARY: Skin is warm and dry with no clubbing or cyanosis present. NEUROLOGIC: No focal deficits. MUSKULOSKELETAL: Able to move all extremities, strength equal bilaterally. PSYCHIATRIC: Alert and oriented to person place and time, flat affect, intact judgment and insight. INVASIVE LINES AND TUBES: Left pleural pigtail catheter in place to low continuous wall suction -20 cm H2O. No air leak is present. Draining thin serous drainage with 800 mL output in the last 24 hours. - Labs CBC & Chem 7: 10/07/24 07:34 10/04/24 06:28 Labs: Abnormal Lab Results - Last 24 Hours (Table) 10/07/24 10/07/24 10/08/24 Range/Units 16:30 20:24 06:01 POC Glucose (mg/dL) 397 H 338 H 193 H (70-110) mg/dL 10/08/24 Range/Units 11:42 POC Glucose (mg/dL) 274 H (70-110) mg/dL Assessment and Plan Plan: Acute hypoxemic respiratory failureSecondary to pneumonia and parapneumonic loculated left-sided pleural effusion and the patient has a pigtail catheter inserted in the left hemithorax and output is being monitored. Currently on 5 L O2 nasal cannula Left lower lobe pneumonia with a complicated loculated parapneumonic left-sided pleural effusion status post pigtail catheter insertion on 09/30/2024 Dyspnea secondary to above Loculated left-sided pleural effusion, S/P pigtail catheter placement, September 30, 2024. The patient has already received a total of 3 doses of alteplase/dornase and a fourth is to follow. Output from the pigtail is in the order of 800 to 850 cc over the past 24 hours. Leukocytosis secondary to above. Atrial fibrillation with a rapid ventricular response, currently in normal sinus mechanism Schizoaffective disorder. History of bipolar disorder with anxiety/depression. Diabetes mellitus, type II. History of mild intermittent chronic bronchial asthma. History of CVA. Hypertension. Gastroesophageal reflux disease. [facility] resident. Plan: Titrate oxygen flow to maintain saturation above 90%, currently on 5 L nasal cannula Administered the fourth dose of alteplase/dornase Continue IV Zosyn Keep the pigtail catheter in place and monitor the output Continue Spiriva Continue albuterol nebulizer treatments 4 times a day Continue metoprolol 25 mg p.o. twice a day and Cardizem 360 mg CD1 tablet a day Continue aspirin 81 mg p.o. daily Continue Depakote and amantadine and trazodone Daily chest x-rays Will continue
[2024-10-09 05:49] LABS: Glucose,Whole Blood 120 mg/dL (70-110)
--- NOTE | 2024-10-09 07:27 | XR ---
EXAMINATION TYPE: XR chest 1V portable DATE OF EXAM: 10/09/2024 6:56 AM COMPARISON: 10/08/2024 CLINICAL INDICATION: Male, 59 years old with history of Left pleural effusion, , FINDINGS: Low lung volumes with crowded vascular markings and accentuation of heart size likely upper limits of normal. Diffuse interstitial and patchy bilateral opacities greatest in the mid and lower lungs norberto g with small left pleural effusion. Aeration shows slight improvement on the left. Left basilar pigta il pleural catheter remains. IMPRESSION: Ongoing diffuse interstitial and bilateral patchy opacities especially in the mid and lower lungs wit h slight improvement on the left. Small left pleural effusion persists. Left basilar pleural catheter remains. [facility], , 10/09/2024 7:25 AM
--- NOTE | 2024-10-09 07:58 | P.PN ---
Subjective Progress Note Date: 10/09/24 Principal diagnosis: Persistent left pleural effusion. Past medical history significant for asthma, COPD, CVA, diabetes mellitus type 2, hypertension, thyroid disorder, GERD, anxi ety, depression, bipolar disorder, and schizoaffective disorder. POD #9 placement of left pleural pigtail catheter by interventional radiology. Patient was seen and examined in follow-up today October 2024 at his bedside on the third floor cardiac stepdown unit. He is currently sitting up to the bedside chair, is awake, alert, and oriented x 2. He is tolerating his breakfast. He is somewhat agitated at this time, and is wanting to get back to bed. He denies any complaints of shortness of breath although is complaining of some chest discomfort to his left chest. Oxygen saturations are 94% on 3 L nasal cannula and he remains achieving 750 to 1000 mL on his incentive spirometry with encouragement. The patient pulled his left chest pigtail catheter out this morning, and the nurse covered the chest tube site with Vaseline gauze covered with 4 x 4 gauze and secured with tape. The patient had received 4 total doses of alteplase/dornase lytic pleural instillation treatment over the last 4 days. Chest x-ray from this morning has been reviewed. Objective - Vital Signs Vital signs: Vital Signs Temp 98.2 F 10/08/24 20:20 Pulse 57 L 10/09/24 03:10 Resp 16 10/09/24 03:10 BP 127/63 10/09/24 03:10 Pulse Ox 94 L 10/09/24 03:10 FiO2 50 10/06/24 11:08 Intake & Output 10/08/24 10/09/24 10/09/24 18:59 06:59 18:59 Intake Total 1439 442 Output Total 480 1 Balance 959 441 Weight 73.4 kg Intake: Intake, IV Titration 100 Amount Piperacillin-Tazobactam 3 100 .375 gm In Sodium Chloride 0.9% 100 ml @ 25 mls/hr IVPB Q8H [facility] Rx#: [id number] Oral 1339 442 Output: Chest Tube Drainage 480 Chest Tube Left 480 Urine 1 Other: Voiding Method Diaper Diaper # Voids 1 # Bowel Movements 1 - Exam CONSTITUTIONAL: Appears comfortable, cooperative, no acute distress RESPIRATORY: Lungs sounds diminished to his bilateral bases, left greater than right. Respirations symmetrical, nonlabored. Currently on 3 L nasal cannula and oxygen saturation 94%. Able to achieve 750-1000 mL on his incentive spirometry. Strong nonproductive cough. CARDIOVASCULAR: S1, S2 present. Regular rate and rhythm, sinus rhythm on telemetry. Palpable peripheral pulses bilaterally. No edema present. No calf pain or tenderness noted. GASTROINTESTINAL: Abdomen soft, nontender, nondistended. Active bowel sounds present 4 quadrants. Tolerating diet. GENITOURINARY: Continues to void, episodes of incontinence with diaper/brief in place. INTEGUMENTARY: Skin is warm and dry with no clubbing or cyanosis present. NEUROLOGIC: No focal deficits. MUSKULOSKELETAL: Able to move all extremities, strength equal bilaterally. PSYCHIATRIC: Alert and oriented to person place and time, flat affect, intact judgment and insight. - Allied health notes Allied health notes reviewed: nursing - Labs CBC & Chem 7: 10/07/24 07:34 10/04/24 06:28 Labs: Abnormal Lab Results - Last 24 Hours (Table) 10/08/24 10/08/24 10/08/24 Range/Units 11:42 16:32 20:57 POC Glucose (mg/dL) 274 H 274 H 382 H (70-110) mg/dL 10/09/24 Range/Units 05:48 POC Glucose (mg/dL) 120 H (70-110) mg/dL - Imaging and Cardiology Chest x-ray: report reviewed, image reviewed Assessment and Plan Assessment: Loculated left-sided pleural effusion, status post pigtail catheter placement on September 30, 2024 by interventional radiology, status post instillation fourth dose of alteplase/dornase yesterday October 08, 2024. Acute hypoxemic respiratory failure secondary to suspected bilateral pneumonia, bilateral pleural effusions, and possible underlying diastolic congestive heart failure, currently on Airvo Leukocytosis, likely secondary to above Atrial fibrillation with rapid ventricular response on admission twelve-lead EKG with a heart rate of 164 bpm Hypertension History of CVA Diabetes mellitus type 2, insulin-dependent Schizoaffective disorder History of bipolar disorder with anxiety/depression GERD Medical debility Plan: Stat chest x-ray to evaluate for pneumothorax post the patient pulling out his left chest pigtail catheter. Wean oxygen as tolerated, bronchodilators and oxygen management per pulmonary/critical care medicine recommendations. Encourage use of incentive spirometry 10 times every hour while awake. Increase activity as tolerated. Out of bed for all meals. Continue to monitor daily chest x-rays. Medical management other comorbidities per internal medicine, infectious disease and pulmonary/critical care medicine. More recommendations to follow based on patient's clinical course, we will continue to follow the patient on an as-needed basis, please reconsult if necessary. Time with Patient: Less than 30
[2024-10-09 08:13] LABS: Basophils # (A) 0.1 k/uL (0-0.2); Basophils % (A) 1 %; Eosinophils # (A) 0.1 k/uL (0-0.7); Eosinophils % (A) 1 %; HCT 39.9 % (39.0-53.0); HGB 12.8 gm/dL (13.0-17.5); Hypochromasia Slight; Lymphocytes # (A) 1.7 k/uL (1.0-4.8); Lymphocytes % (A) 17 %; MCH 30.8 pg (25.0-35.0); MCHC 32.1 g/dL (31.0-37.0); MCV 95.8 fL (80.0-100.0); Mean Platelet Volume 7.8; Monocytes % (A) 10 %; Neutrophils # (A) 6.9 k/uL (1.3-7.7); Neutrophils % (A) 69 %; Platelet Count 389 k/uL (150-450); RBC 4.17 m/uL (4.30-5.90); RDW 13.7 % (11.5-15.5); WBC 10.1 k/uL (3.8-10.6)
[2024-10-09 08:22] LABS: ALT 12 U/L (4-49); AST 23 U/L (17-59); African American GFR (CKD) >90 (>60 ml/min/1.73 sqM); Albumin 2.4 g/dL (3.5-5.0); Alkaline Phosphatase 117 U/L (38-126); Anion Gap 8 mmol/L; Blood Urea Nitrogen 10 mg/dL (9-20); Calcium 8.3 mg/dL (8.4-10.2); Carbon Dioxide 31 mmol/L (22-30); Chloride 93 mmol/L (98-107); Glucose 159 mg/dL (74-99); Non-African American GFR(CKD) >90 (>60 ml/min/1.73 sqM); Potassium 3.8 mmol/L (3.5-5.1); Sodium 132 mmol/L (137-145); Total Bilirubin 0.3 mg/dL (0.2-1.3); Total Protein 6.2 g/dL (6.3-8.2)
--- NOTE | 2024-10-09 08:37 | XR ---
EXAMINATION TYPE: XR chest 1V portable DATE OF EXAM: 10/09/2024 8:29 AM COMPARISON: 10/09/2024 CLINICAL INDICATION: Male, 59 years old with history of Pulled chest tube out, assess for any progres sive effusion FINDINGS: Interval removal of the left basilar pleural catheter. Improved lung volumes on this exposure. Inters titial densities persist bilaterally. There may be residual trace left effusion. Residual patchy left basilar opacities remain. IMPRESSION: No sizable residual left effusion on the frontal view. Improved inspiratory effort compared to earlie r today. Diffuse bilateral interstitial densities persist. Residual patchy atelectasis and/or consoli dation at the left base. [facility], , 10/09/2024 8:35 AM
[2024-10-09 11:25] LABS: Glucose,Whole Blood 326 mg/dL (70-110)
--- NOTE | 2024-10-09 13:59 | P.PN ---
Subjective Progress Note Date: 10/09/24 This is a 59-year-old male patient with a known history of schizophrenia and resides in a adult foster care setting who had been brought into [facility] with increasing shortness of breath on September 22, 2024. He was requiring Airvo high flow oxygen and not showing much improvement and was mike sferred here direct admit to the selective care unit today. Chest x-ray here reveals bilateral pleural effusion and basilar infiltrates left greater than right. Correlate for underlying CHF. Possible pneumonia. Large lobulated density in the left lobe. He is currently sitting up in a chair. Awake and alert. Somewhat uncooperative. A clinical safety manager is at the bedside. Continuously taking off his Airvo high flow oxygen device. This is currently set at 50 L and 80% FiO2. Procalcitonin at [place] was 2.40. He has been initiated on DuoNeb and elations, vancomycin and Zosyn. Ativan as needed. White count 14.9. Hemoglobin 13.9. Platelets 146. Sodium 136. Potassium 3.6. Bicarb 29. BUN 25. Creatinine 0.71. Glucose 157. He currently denies any worsening shortness of breath, cough or congestion. He is not clear as to why he was admitted. No family at the bedside. patient was seen today on 09/27/2024, patient remains at hypoxic, remains on Airvo at 50% FiO2 and 50 L flow patient is basically about the same seems to be more comfortable, he had a clinical safety manager at bedside. As at times he seems to be quite agitated and restless. Ultrasound of the chest was reviewed, may have some debris in the pleural effusion, and there is also lung tissue, hence am not planning thoracentesis at this point. My recommendation to continue antibiotics and diuretics, and continue to monitor, we will decide whether the patient could benefit from thoracentesis or a pigtail catheter placement.WBC count is 15.8 hemoglobin 13.2 basic metabolic profile is normal renal profile is normal Legionella antigen is negative. Procalcitonin at [place] was +2.40 Patient was seen today on 09/28/2024, basically the patient is about the same, remains on Airvo, 50% FiO2 and 50% liters flow, mental status is basically about the same, patient is encephalopathic, reviewed the ultrasound of the chest, patient seems to have loculated pleural effusion and I am recommending a pigtail catheter placement next week by interventional radiology in the meantime continue antibiotics. Continues to have leukocytosis, continues to have relatively normal electrolytes. Patient had elevated procalcitonin level on admission Patient was seen today on 09/29/2024, patient is basically about the same, erik ins on Airvo, he has a clinical safety manager at bedside, patient does not seem to verbalize much, remains encephalopathic. I have recommended pigtail catheter placement for his complicated or loculated pleural effusion, this will be done by interventional radiology hopefully tomorrow. In the meantime patient is receiving antibiotics for his pneumonia and parapneumonic effusion. The patient is seen today September 30, 2024 in follow-up on the selective care unit. He is currently resting in bed. Awake and alert. magician helper remains at the bedside. He is continued on Airvo high flow oxygen at 45 L and 50% FiO2. Blood cultures revealing no growth thus far. White count 13.3. Hemoglobin 12.5. Platelets 190. Sodium 132. Potassium 3.5. Bicarb 27. BUN 21. Creatinine 0.73. Glucose 173. He is continued on Zosyn. Remains on bronchodilators. Plan is for pigtail catheter placement today for the left- sided loculated pleural effusion. Progress note dated October 01, 2024. 59-year-old male who is seen today in room 376. The patient is currently on Airvo, with settings of 50 L/min, and FiO2 of 85%. The patient is getting saline at 75 cc an hour. A pigtail catheter was placed on the left side yesterday, by interventional radiology. Count 10.4, hemoglobin 12.6, hematocrit 38.7, and a platelet count of 173,000. Sodium 131, potassium 3.4, chloride 97, CO2 28, BUN 18, creatinine 0.63. Glucose is 245. Calcium 7.6. Progress note dated October 02, 2024. 59-year-old male seen in room 376. The patient is currently on Airvo at 50 L/min with an FiO2 of 80%. He continues on Zosyn. A left pigtail catheter is noted. The patient clinically is doing better. We encouraged him today to use his incentive spirometer, which apparently he was not using. We have asked the nurse to cross country coach the patient, to use it on a hourly basis. Current labs include white count 11.3, hemoglobin 12.7, hematocrit 38.8, and a normal platelet count of 202,000. Sodium 133, potassium 3.7, chlorides 100, CO2 25, BUN 14, and creatinine 0.62. Glucose is 173. Albumin is 2.3. Calcium is 7.6. Progress note dated October 03, 2024. 59-year-old male who is seen today in room 376. Currently, the patient is on Airvo, with settings of 50 L/min, and an FiO2 of 70%. The patient has had a fluctuating mental status, over the last few days. Currently, white count is 11.3, hemoglobin 13.4, hematocrit 40.3, platelet count 215,000. The patient had a blood gas done, and his pO2 is 55, pCO2 36, pH is 7.51. Glucose is 304. Sodium 132, potassium 4.2, chloride 96, CO2 31, BUN 11, creatinine 0.69. Al bumin is 2.3. Culture data has all been negative. Chest x-ray shows a left basilar pleural catheter in place, with decreasing size of moderate size pleural effusion with loculations. Progress note dated October 04, 2024. 59-year-old male who is seen today in room 376. He is awake and alert. He still on Airvo, with settings of 50 L/min, and a FiO2 of 65%. The patient does not manifest any signs or symptoms of respiratory difficulty or distress. He does continue on Zosyn. Current labs include a white count 9.9, hemoglobin 13.4, hematocrit 39.5, and a platelet count of 216,000. Sodium 132, potassium 3.9, chlorides 95, CO2 31, BUN 14, and creatinine 0.61. Glucose is 308. Albumin is 2.3. Cultures thus far are negative. Chest x-ray from October 03, has been reviewed. Progress note dated October 05, 2024. 59-year-old male seen in room 376. Sitter is in the room today. The patient continues on Airvo, at 40 L/min with an FiO2 of 50%. The patient is scheduled to have a CT scan of the chest on today. The patient continues on Zosyn. No IV fluids. Appears to be resting comfortably. No respiratory distress or difficulty. No new labs today other than a glucose of 266. CT scan of the chest shows a moderate loculated left-sided pleural fluid collection, with pleural drainage catheter noted. There is associated and adjacent left lung consolidation/atelectasis. There is a small to moderate right-sided pleural effusion as well. Progress note dated October 06, 2024. 59-year-old male seen again in room 376. There is a sitter in the room. The patient is on Airvo, with settings of 35 L/min, and an FiO2 of 40%. He is not receiving any fluids. He is on Zosyn. No new labs today other than a glucose of 219. Chest x-ray today shows diffuse left lung infiltrates, and edema. Pleural catheter is seen in the left side. There is no pneumothorax. Is on 10/07/2024, the patient is being seen for a follow-up. The patient has schizoaffective disorder/bipolar disorder/depression in addition to COPD/asthma, diabetes mellitus type 2, hypertension, hypothyroidism and history of diabetes mellitus type 2. The patient currently is being treated for a parapneumonic left-sided pleural effusion/exudate with loculation. The patient has a pigtail catheter inserted by interventional radiology and he is postop day #7. He remains on oxygen at 10 L/min nasal cannula with a pulse ox of 98%. Using incentive spirometer and is pulling approximately 750. Total amount of drainage over the past 24 hours has been in the order of 600 cc. He is receiving alteplase/dornase through the pigtail catheter and he has already received a total of 2 treatments. A third is to be administered today. The white cell count of 15 with a hemoglobin of 13.3 and a platelet count of 310. Electrolytes were not checked on today's evaluation. In terms of antibiotic coverage, the patient remains on IV Zosyn. The patient is also on Spiriva 1 inhalation a day and Ventolin nebulized treatments 4 times a day. Chest x-ray from today shows hazy and patchy densities in the left along with a left-sided pigtail catheter in place. On 10/08/2024 patient is being seen for a follow-up. Patient's was seen sitting up in a chair today. He feels weak and quite debilitated. He is postop day #8 following a left-sided pigtail catheter insertion for a parapneumonic effusion. The tube is connected to low intermittent suction. The tube is draining around 850 cc of output over the past 24 hours. He was given the third dose of alteplase/dornase yesterday. Chest x-ray from today was reviewed and the findings are essentially stable and the patient has no significant left pleural effusion accumulation. The patient has pleural-parenchymal opacity in the left there are similar and probably slightly improved. Meanwhile, the patient remains on oxygen at 5 L/min nasal cannula with a pulse ox of 95%. The patient remains on IV Zosyn. In terms of blood work, labs are not available from today. Yesterday's labs were noted. Comorbidities include COPD, diabetes mellitus, previous history of CVA, hypertension, hypothyroidism, and the patient has an extensive psychiatric history including depression/bipolar disorder/schizoaffective disorder. On 10/09/2024, the patient is being seen for a follow-up. Calm and comfortable. Earlier this morning, the pigtail catheter fell off and a follow-up chest x-ray was obtained in the morning that showed a trace left-sided pleural effusion and some residual patchy left basilar infiltrate/atelectasis. Respiratory status is stable and the patient is currently on 3 L of oxygen by nasal cannula. No new complaints. No fever or chills. Remains on Zosyn. He remains on Spiriva Respimat 2 puffs once a day and albuterol HFA 4 times a day. Remains on oral Diflucan. Rest of medications remain unchanged. The blood work from today shows a white cell count of 10 with a hemoglobin of 12.8 and a platelet count of 389. BUN is 10 with a creatinine of 0.5 and a sodium levels at 132. I do not see the need for reinsertion of the pigtail catheter. The patient is not having any significant shortness of breath at rest. Will obtain a follow-up chest x-ra y in the morning. He is weak. He gets quite tired upon sitting up in a chair. He is awake. At times confused. Tolerating diet. Objective - Vital Signs Vital signs: Vital Signs Temp 98.5 F 10/09/24 09:15 Pulse 64 10/09/24 09:15 Resp 16 10/09/24 09:15 BP 139/62 10/09/24 09:15 Pulse Ox 93 L 10/09/24 09:15 FiO2 50 10/06/24 11:08 Intake & Output 10/08/24 10/09/24 10/09/24 18:59 06:59 18:59 Intake Total 2199 351 8048 Output Total 480 1 Balance 351 317 8219 Weight 73.4 kg Intake: Intake, IV Titration 100 Amount Piperacillin-Tazobactam 3 100 .375 gm In Sodium Chloride 0.9% 100 ml @ 25 mls/hr IVPB Q8H [facility] Rx#: [id number] Oral 7216 [id number] 2114 Output: Chest Tube Drainage 480 Chest Tube Left 480 Urine 1 Other: Voiding Method Diaper Diaper Diaper # Voids 1 # Bowel Movements 1 - Exam CONSTITUTIONAL: Appears comfortable, cooperative, no acute distress currently on 4 L of oxygen nasal cannula RESPIRATORY: Lungs sounds diminished to his bilateral bases and the pigtail catheter has been removed CARDIOVASCULAR: S1, S2 present. Regular rate and rhythm, sinus rhythm on telemetry. Palpable peripheral pulses bilaterally. No edema present. No calf pain or tenderness noted. GASTROINTESTINAL: Abdomen soft, nontender, nondistended. Active bowel sounds present 4 quadrants. Tolerating diet. GENITOURINARY: Continues to void, episodes of incontinence with diaper/brief in place. INTEGUMENTARY: Skin is warm and dry with no clubbing or cyanosis present. NEUROLOGIC: No focal deficits. MUSKULOSKELETAL: Able to move all extremities, strength equal bilaterally. PSYCHIATRIC: Alert and oriented to person place and time, flat affect, intact judgment and insight. - Labs CBC & Chem 7: 10/09/24 07:10 10/09/24 07:10 Labs: Abnormal Lab Results - Last 24 Hours (Table) 10/08/24 10/08/24 10/09/24 Range/Units 16:32 20:57 05:48 RBC (4.30-5.90) m/uL Hgb (13.0-17.5) gm/dL Sodium (137-145) mmol/L Chloride (98-107) mmol/L Carbon Dioxide (22-30) mmol/L Creatinine (0.66-1.25) mg/dL Glucose (74-99) mg/dL POC Glucose (mg/dL) 274 H 382 H 120 H (70-110) mg/dL Calcium (8.4-10.2) mg/dL Total Protein (6.3-8.2) g/dL Albumin (3.5-5.0) g/dL 10/09/24 10/09/24 10/09/24 Range/Units 07:10 07:10 11:21 RBC 4.17 L (4.30-5.90) m/uL Hgb 12.8 L (13.0-17.5) gm/dL Sodium 132 L (137-145) mmol/L Chloride 93 L (98-107) mmol/L Carbon Dioxide 31 H (22-30) mmol/L Creatinine 0.57 L (0.66-1.25) mg/dL Glucose 159 H (74-99) mg/dL POC Glucose (mg/dL) 326 H (70-110) mg/dL Calcium 8.3 L (8.4-10.2) mg/dL Total Protein 6.2 L (6.3-8.2) g/dL Albumin 2.4 L (3.5-5.0) g/dL Assessment and Plan Plan: Acute hypoxemic respiratory failureSecondary to pneumonia and parapneumonic loculated left-sided pleural effusion and the patient has a pigtail catheter inserted in the left hemithorax and output is being monitored. Currently on 4 L of oxygen nasal cannula. Pigtail catheter has been removed. Left lower lobe pneumonia with a complicated loculated parapneumonic left-sided pleural effusion status post pigtail catheter insertion on 09/30/2024, pigtail catheter was removed on 10/09/2024 and follow-up chest x-ray shows only trace left-sided pleural effusion and atelectatic changes in left lung base. Dyspnea secondary to above Loculated left-sided pleural effusion, S/P pigtail catheter placement, September 30, 2024. The patient has already received a total of 4 doses of alteplase/d ornase and subsequently the pigtail catheter came off Leukocytosis secondary to above. Atrial fibrillation with a rapid ventricular response, currently in normal sinus mechanism Schizoaffective disorder. History of bipolar disorder with anxiety/depression. Diabetes mellitus, type II. History of mild intermittent chronic bronchial asthma. History of CVA. Hypertension. Gastroesophageal reflux disease. [facility] resident. Plan: Titrate oxygen flow to maintain saturation above 90%, currently on 3 L nasal cannula Pigtail catheter came off and there is no need for reinsertion. Follow-up chest x-ray shows a trace left-sided pleural effusion and some atelectatic change/infiltrate in left lung base Continue IV Zosynut Continue Spiriva Continue albuterol nebulizer treatments 4 times a day Continue metoprolol 25 mg p.o. twice a day and Cardizem 360 mg CD1 tablet a day Continue aspirin 81 mg p.o. daily Continue Depakote and amantadine and trazodone Daily chest x-rays Encouraged use of incentive spirometer Advance diet as tolerated Sitter at the bedside Will continue
[2024-10-09] MEDS: SALINE NASAL GEL 14.1 GM TUBE NASAL SCH (14:47)
[2024-10-09] MEDS: FLUTICASONE NASAL 50MCG/SPRAY 16GM BTL EA NOSTRIL SCH (14:55)
[2024-10-09 16:29] LABS: Glucose,Whole Blood 366 mg/dL (70-110)
--- NOTE | 2024-10-09 18:30 | P.PN ---
Progress Note - Text Progress Note Date: 10/09/24 patient is a 59-year-old gentleman with past medical history significant for schizophrenia who is a resident of a adult foster care was transferred to [facility] from [facility] for worsening respiratory status. Patient initially presented to [facility] for shortness of breath and chest pain for 4 to 5 days. According to medical records, patient was complaining of shortness of breath on exertion and chest pain that was pleuritic in nature worsened by taking deep breaths. Patient was also complaining of lethargy and weakness. There is no complaint of cough. There was no complaint of fever or chills. Patient was worked up in [facility], initial CT chest done showed bilateral lower lobe consolidation greater on the left suspicious for pneumonia. Patient was admitted there and was started on IV antibiotics. Patient also had 2D echo done that showed normal LV systolic function with LVEF of 66 65%, there was some diastolic dysfunction present. No valvular pathology seen. While at [facility], patient respiratory status worsened, patient was requiring heated high flow. Because of respiratory status, transfer was requested and patient was transferred to [facility] Patient admitted to internal medicine service 09/27. Patient seen and examined. Patient is doing better compared to yesterday, patient did not answer many of my questions. 09/28. Patient seen and examined. Patient continues to be on Airvo. 09/29. Patient seen examined. Patient was agitated overnight and received Ativan. Continues to require heated high flow. 09/30. Patient seen and examined. Patient is not the best historian, not willing to answer any question. Patient being scheduled for IR guided pigtail catheter placement 10/01. Patient seen and examined. vital signs stable. Patient had IR guided pigtail catheter placement on left side. Patient lethargic, complaining of pain at the catheter site 10/02/2024. Patient seen and examined. Patient is awake, more responsive compared to yesterday. Patient states that he wants his tube to come out. Denies any chest pain 10/03/2024. Patient seen and examined. Patient had fever overnight 100.2. Currently on high flow Airvo at 70% FiO2, patient had A team this morning for shortness of breath. Currently doing better. 10/04. Patient seen and examined. Patient had low-grade fever overnight. Patient continues to have episodes when he becomes lethargic mostly at night but as the day goes by he becomes more alert. 1. Patient seen and examined. CT surgery evaluated, ordered alteplase instillation via pigtail catheter. . Patient seen and examined. Patient received pleural instillation of alteplase/dornase through his left chest pigtail catheter yesterday, draining thin serous drainage with 650 mL output. October 07: As of this afternoon patient had about 600 cc from his chest tube drain. On low continuous wall suction -20 cm water. On 10 L high flow nasal cannula. Has a congested cough. Decreased oral intake. October 08: Continues to have increased output through the left-sided chest tube. Eating better with encouragement. Including Ensure.. Up in a recliner. Per PT OT yesterday only walked 2 feet. Alteplase was given through the chest tube again today. More thick output. FiO2 down to 6 L October 09: Patient pulled out his pigtail catheter this morning. X-ray was ordered no pneumothorax. Oral intake much improved. On 3 L nasal cannula. Has a sitter as patient had been pulling off his oxygen. Spoke to the nurse. Will see if patient can do without oxygen. perianesthesia manager spoke to the public guardian looking for SNF in the [place] area. Active Medications Acetaminophen (Acetaminophen Tab 325 Mg Tab) 650 mg PO Q4HR PRN PRN Reason: Fever and/ or Mild Pain Last Admin: 10/08/24 09:56 Dose: 650 mg Albuterol Sulfate (Albuterol Hfa Inhaler) 2 puff INHALATION RT-QID COUNT INCLUDES THE [facility] Last Admin: 10/09/24 15:15 Dose: 2 puff Albuterol Sulfate (Albuterol Hfa Inhaler) 2 puff INHALATION RT-Q2H PRN PRN Reason: Shortness Of Breath Or Wheezing Amantadine HCl (Amantadine Hcl 100 Mg Cap) 100 mg PO DAILY COUNT INCLUDES THE [facility] Last Admin: 10/09/24 11:07 Dose: 100 mg Aspirin (Aspirin 81 Mg) 81 mg PO DAILY COUNT INCLUDES THE [facility] Last Admin: 10/09/24 11:06 Dose: 81 mg Dextrose/Water (Dextrose 50% Syringe 50 Ml) 25 ml IVP PER PROTOCOL PRN; Protocol PRN Reason: Hypoglycemia Dextrose/Water (Dextrose 50% Syringe 50 Ml) 50 ml IVP PER PROTOCOL PRN; Protocol PRN Reason: Hypoglycemia Diltiazem HCl (Diltiazem Cd 180 Mg Cap.Er.24h) 360 mg PO DAILY COUNT INCLUDES THE [facility] Last Admin: 10/09/24 11:06 Dose: 360 mg Divalproex Sodium (Divalproex Er 500 Mg Tab.Er.24h) 500 mg PO TID COUNT INCLUDES THE [facility] Last Admin: 10/09/24 17:11 Dose: 500 mg Fluconazole (Fluconazole 100 Mg Tab) 100 mg PO DAILY COUNT INCLUDES THE [facility]; Protocol Last Admin: 10/09/24 11:06 Dose: 100 mg Fluticasone Propionate (Fluticasone Nasal 50mcg/[place] 16gm Btl) 2 spray EA NOSTRIL DAILY COUNT INCLUDES THE [facility] Last Admin: 10/09/24 14:55 Dose: 2 spray Folic Acid (Folic Acid 1 Mg Tab) 1 mg PO DAILY COUNT INCLUDES THE [facility] Last Admin: 10/09/24 11:06 Dose: 1 mg Piperacillin Sod/Tazobactam (Sod 3.375 gm/ Sodium Chloride) 100 mls @ 25 mls/hr IVPB Q8H COUNT INCLUDES THE [facility]; Protocol Last Admin: 10/09/24 17:12 Dose: 25 mls/hr Insulin Aspart (Insulin Aspart (Novolog) 100 Unit/Ml Vial) 0 unit SQ ACHS COUNT INCLUDES THE [facility]; Protocol Last Admin: 10/09/24 17:11 Dose: 10 unit Insulin Aspart (Insulin Aspart (Novolog) 100 Unit/Ml Vial) 6 unit SQ AC-TID COUNT INCLUDES THE [facility] Last Admin: 10/09/24 17:11 Dose: 6 unit Lorazepam (Lorazepam 2 Mg/Ml Inj) 0.5 mg IV Q6HR PRN PRN Reason: Anxiety Last Admin: 10/06/24 01:28 Dose: 0.5 mg Metoprolol Tartrate (Metoprolol Tartrate 25 Mg Tab) 25 mg PO BID COUNT INCLUDES THE [facility] Last Admin: 10/09/24 11:06 Dose: 25 mg Miscellaneous Information (Pneumonia Protocol Utilized 1 Each Misc) 1 each PO ONCE PRN PRN Reason: Per Protocol Miscellaneous Information (Potassium Replacement Protocol 1 Each Misc) 1 each MISCELLANE DAILY PRN; Protocol PRN Reason: Per Protocol Pantoprazole Sodium (Pantoprazole 40 Mg Tablet) 40 mg PO DAILY COUNT INCLUDES THE [facility] Last Admin: 10/09/24 11:07 Dose: 40 mg Sodium Chloride (Saline Nasal Gel 14.1 Gm Tube) 1 applic NASAL QID COUNT INCLUDES THE [facility] Last Admin: 10/09/24 17:12 Dose: 1 applic Tiotropium [place] (Tiotropium 2.5 Mcg Inhaler) 2 puff INHALATION RT-DAILY COUNT INCLUDES THE [facility] Last Admin: 10/09/24 08:06 Dose: Not Given Trazodone HCl (Trazodone Hcl 50 Mg Tab) 50 mg PO HS PRN PRN Reason: SLEEP Last Admin: 10/05/24 21:01 Dose: 50 mg On examination: VITAL SIGNS: 98.9, 64, 16, 142 x 65, 96% on 3 L GENERAL APPEARANCE: Lying in bed, comfortable HEENT: Normal external appearance of nose and ear. Oral cavity normal EYES: Pupils equal. Conjunctiva normal. NECK: JVD not raised. Mass not palpable. RESPIRATORY: Respiratory effort normal, decreased breath sounds. Mild crackles. Chest tube pulled out CARDIOVASCULAR: First and second sounds normal. No edema. ABDOMEN: Soft. Liver and spleen not palpable. No tenderness. No mass palpable. PSYCHIATRY: Answering simple questions INVESTIGATIONS, reviewed in the clinical context: October 09: White count 10.1 hemoglobin 12.8 platelets 389 sodium 132 potassium 3.8 creatinine 0.57 October 07: White count 15.1 hemoglobin 13.[address] chest moderate size not simple loculated left-sided pleural effusion with lateral left basilar pleural drainage catheter. Associated with left lung consolidation/atelectasis. Also moderate-sized right-sided pleural effusion with associated right posterior compression atelectasis. Some patchy infiltrates Pleural fluid culture: Negative Assessment and plan -Acute hypoxemic respiratory failure, secondary to pleural effusion/pneumonia, improving On 3 L nasal cannula -Bilateral pleural effusions, left greater than the right/parapneumonic effusion.: Creatinine improved Pigtail catheter placed by IR on September 30, 2024. Pulled out by the patient on October 09 Receiving alteplase/dornase 4 doses -[id number] really contributing to current symptoms -Complicated pneumonia suspect gram-negative organism, with parapneumonic effusion: Much better IV Zosyn. Pleural fluid culture negative -Paroxysmal atrial fibrillation with rapid ventricular rate, currently in sinus rhythm Cardizem CD 360 mg a day. Lopressor 25 mg twice daily Leukocytosis secondary to above Schizoaffective disorder -Bipolar disorder with anxiety/depression Desyrel. Depakote -Diabetes mellitus, type II, chronically insulin, uncontrolled with hyperglycemia On sliding scale with coverage. Add scheduled NovoLog 6 units 3 times daily Add Lantus 20 units. Watch for any side effects -Essential hypertension Cardizem CD 360 mg -Gastroesophageal reflux disease Pepcid as needed -Public guardian -Disposition: perianesthesia manager after talking to legal guardian [facility] Patient has pulled out his pigtail. Oxygen requirement down to 3 L. Will see if he still needs the same. Add Lantus follow closely.
[2024-10-09 20:09] LABS: Glucose,Whole Blood 266 mg/dL (70-110)
[2024-10-09] MEDS: INSULIN DETEMIR (LEVEMIR) 100 UNIT/ML SYR SQ SCH (20:22)
[2024-10-10 05:53] LABS: Glucose,Whole Blood 260 mg/dL (70-110)
[2024-10-10 11:41] LABS: Glucose,Whole Blood 269 mg/dL (70-110)
--- NOTE | 2024-10-10 15:12 | P.PN ---
Progress Note - Text Progress Note Date: 10/10/24 patient is a 59-year-old gentleman with past medical history significant for schizophrenia who is a resident of a adult foster care was transferred to [facility] from [facility] for worsening respiratory status. Patient initially presented to [facility] for shortness of breath and chest pain for 4 to 5 days. According to medical records, patient was complaining of shortness of breath on exertion and chest pain that was pleuritic in nature worsened by taking deep breaths. Patient was also complaining of lethargy and weakness. There is no complaint of cough. There was no complaint of fever or chills. Patient was worked up in [facility], initial CT chest done showed bilateral lower lobe consolidation greater on the left suspicious for pneumonia. Patient was admitted there and was started on IV antibiotics. Patient also had 2D echo done that showed normal LV systolic function with LVEF of 66 65%, there was some diastolic dysfunction present. No valvular pathology seen. While at [facility], patient respiratory status worsened, patient was requiring heated high flow. Because of respiratory status, transfer was requested and patient was transferred to [facility] Patient admitted to internal medicine service 09/27. Patient seen and examined. Patient is doing better compared to yesterday, patient did not answer many of my questions. 09/28. Patient seen and examined. Patient continues to be on Airvo. 09/29. Patient seen examined. Patient was agitated overnight and received Ativan. Continues to require heated high flow. 09/30. Patient seen and examined. Patient is not the best historian, not willing to answer any question. Patient being scheduled for IR guided pigtail catheter placement 10/01. Patient seen and examined. vital signs stable. Patient had IR guided pigtail catheter placement on left side. Patient lethargic, complaining of pain at the catheter site 10/02/2024. Patient seen and examined. Patient is awake, more responsive compared to yesterday. Patient states that he wants his tube to come out. Denies any chest pain 10/03/2024. Patient seen and examined. Patient had fever overnight 100.2. Currently on high flow Airvo at 70% FiO2, patient had A team this morning for shortness of breath. Currently doing better. 10/04. Patient seen and examined. Patient had low-grade fever overnight. Patient continues to have episodes when he becomes lethargic mostly at night but as the day goes by he becomes more alert. 10/05. Patient seen and examined. CT surgery evaluated, ordered alteplase instillation via pigtail catheter. . Patient seen and examined. Patient received pleural instillation of alteplase/dornase through his left chest pigtail catheter yesterday, draining thin serous drainage with 650 mL output. October 07: As of this afternoon patient had about 600 cc from his chest tube drain. On low continuous wall suction -20 cm water. On 10 L high flow nasal cannula. Has a congested cough. Decreased oral intake. October 08: Continues to have increased output through the left-sided chest tube. Eating better with encouragement. Including Ensure.. Up in a recliner. Per PT OT yesterday only walked 2 feet. Alteplase was given through the chest tube again today. More thick output. FiO2 down to 6 L October 09: Patient pulled out his pigtail catheter this morning. X-ray was ordered no pneumothorax. Oral intake much improved. On 3 L nasal cannula. Has a sitter as patient had been pulling off his oxygen. Spoke to the nurse. Will see if patient can do without oxygen. slot shift manager spoke to the public guardian looking for SNF in the [place] area. October 10: Episodes of anxiety with some agitation. Required Ativan. Patient was seen by psychiatry on October 05. Will have them review the patient to see if further medication need to be adjusted. Spoke to administrator social welfare Lore. Looking into placement. Otherwise patient is eating well. On 3 L of nasal cannula. Psychiatry requested to reevaluate medications. Patient started on Levemir yesterday. Tolerating well. Increase Levemir to 28 units. Active Medications Acetaminophen (Acetaminophen Tab 325 Mg Tab) 650 mg PO Q4HR PRN PRN Reason: Fever and/ or Mild Pain Last Admin: 10/08/24 09:56 Dose: 650 mg Albuterol Sulfate (Albuterol Hfa Inhaler) 2 puff INHALATION RT-QID [facility] Last Admin: 10/10/24 12:15 Dose: Not Given Albuterol Sulfate (Albuterol Hfa Inhaler) 2 puff INHALATION RT-Q2H PRN PRN Reason: Shortness Of Breath Or Wheezing Amantadine HCl (Amantadine Hcl 100 Mg Cap) 100 mg PO DAILY [facility] Last Admin: 10/10/24 12:23 Dose: Not Given Aspirin (Aspirin 81 Mg) 81 mg PO DAILY [facility] Last Admin: 10/10/24 12:23 Dose: Not Given Dextrose/Water (Dextrose 50% Syringe 50 Ml) 25 ml IVP PER PROTOCOL PRN; Protocol PRN Reason: Hypoglycemia Dextrose/Water (Dextrose 50% Syringe 50 Ml) 50 ml IVP PER PROTOCOL PRN; Protocol PRN Reason: Hypoglycemia Diltiazem HCl (Diltiazem Cd 180 Mg Cap.Er.24h) 360 mg PO DAILY [facility] Last Admin: 10/10/24 12:23 Dose: Not Given Divalproex Sodium (Divalproex Er 500 Mg Tab.Er.24h) 500 mg PO TID [facility] Last Admin: 10/10/24 12:23 Dose: Not Given Fluconazole (Fluconazole 100 Mg Tab) 100 mg PO DAILY [facility]; Protocol Last Admin: 10/10/24 12:23 Dose: Not Given Fluticasone Propionate (Fluticasone Nasal 50mcg/[place] 16gm Btl) 2 spray EA NOSTRIL DAILY [facility] Last Admin: 10/10/24 12:23 Dose: Not Given Folic Acid (Folic Acid 1 Mg Tab) 1 mg PO DAILY [facility] Last Admin: 10/10/24 12:24 Dose: Not Given Piperacillin Sod/Tazobactam (Sod 3.375 gm/ Sodium Chloride) 100 mls @ 25 mls/hr IVPB Q8H [facility]; Protocol Last Admin: 10/10/24 12:23 Dose: 25 mls/hr Insulin Aspart (Insulin Aspart (Novolog) 100 Unit/Ml Vial) 0 unit SQ ACHS [facility]; Protocol Last Admin: 10/10/24 12:25 Dose: 6 unit Insulin Aspart (Insulin Aspart (Novolog) 100 Unit/Ml Vial) 6 unit SQ AC-TID [facility] Last Admin: 10/10/24 12:25 Dose: Not Given Insulin Detemir (Insulin Detemir (Levemir) 100 Unit/Ml Syr) 20 unit SQ HS [facility] Last Admin: 10/09/24 20:22 Dose: 20 unit Lorazepam (Lorazepam 2 Mg/Ml Inj) 0.5 mg IV Q6HR PRN PRN Reason: Anxiety Last Admin: 10/10/24 08:13 Dose: 0.5 mg Metoprolol Tartrate (Metoprolol Tartrate 25 Mg Tab) 25 mg PO BID [facility] Last Admin: 10/10/24 12:24 Dose: Not Given Miscellaneous Information (Pneumonia Protocol Utilized 1 Each Mis) 1 each PO ONCE PRN PRN Reason: Per Protocol Miscellaneous Information (Potassium Replacement Protocol 1 Each Mis) 1 each MISCELLANE DAILY PRN; Protocol PRN Reason: Per Protocol Pantoprazole Sodium (Pantoprazole 40 Mg Tablet) 40 mg PO DAILY [facility] Last Admin: 10/10/24 12:24 Dose: Not Given Sodium Chloride (Saline Nasal Gel 14.1 Gm Tube) 1 applic NASAL QID [facility] Last Admin: 10/10/24 12:27 Dose: Not Given Tiotropium Lane (Tiotropium 2.5 Mcg Inhaler) 2 puff INHALATION RT-DAILY [facility] Last Admin: 10/10/24 08:57 Dose: Not Given Trazodone HCl (Trazodone Hcl 50 Mg Tab) 50 mg PO HS PRN PRN Reason: SLEEP Last Admin: 10/05/24 21:01 Dose: 50 mg On examination: VITAL SIGNS: 98.9, 64, 16, 142 x 65, 96% on 3 L GENERAL APPEARANCE: Lying in bed, comfortable HEENT: Normal external appearance of nose and ear. Oral cavity normal EYES: Pupils equal. Conjunctiva normal. NECK: JVD not raised. Mass not palpable. RESPIRATORY: Respiratory effort normal, decreased breath sounds. Mild crackles. Chest tube pulled out CARDIOVASCULAR: First and second sounds normal. No edema. ABDOMEN: Soft. Liver and spleen not palpable. No tenderness. No mass palpable. PSYCHIATRY: Answering simple questions INVESTIGATIONS, reviewed in the clinical context: October 09: White count 10.1 hemoglobin 12.8 platelets 389 sodium 132 potassium 3.8 creatinine 0.57 October 07: White count 15.1 hemoglobin 13.[address] chest moderate size not simple loculated left-sided pleural effusion with lateral left basilar pleural drainage catheter. Associated with left lung consolidation/atelectasis. Also moderate-sized right-sided pleural effusion with associated right posterior compression atelectasis. Some patchy infiltrates Pleural fluid culture: Negative Assessment and plan -Acute hypoxemic respiratory failure, secondary to pleural effusion/pneumonia, i better On 3 L nasal cannula -Bilateral pleural effusions, left greater than the right/parapneumonic effusion.: Creatinine improved Pigtail catheter placed by IR on September 30, 2024. Pulled out by the patient on October 09 Receiving alteplase/dornase 4 doses -[id number] really contributing to current symptoms -Complicated pneumonia suspect gram-negative organism, with parapneumonic effusion: Much better IV Zosyn. Pleural fluid culture negative -Paroxysmal atrial fibrillation with rapid ventricular rate, currently in sinus rhythm Cardizem CD 360 mg a day. Lopressor 25 mg twice daily Leukocytosis secondary to above Schizoaffective disorder -Bipolar disorder with anxiety/depression Desyrel. Depakote -Diabetes mellitus, type II, chronically insulin, uncontrolled with hyperglycemia On sliding scale with coverage. Add scheduled NovoLog 6 units 3 times daily Started on Levemir 20 units on October 09. Tolerating well. Increase to 28 units nightly. -Essential hypertension Cardizem CD 360 mg -Gastroesophageal reflux disease Pepcid as needed -Public guardian -Disposition: slot shift manager after talking to legal guardian looking into rehab placement in [facility] Psychiatry reconsulted for anxiety agitation. Increase Levemir to 28 units. Eating well. [employer] textile factory worker looking into placement
--- NOTE | 2024-10-10 16:29 | P.PN ---
Subjective Progress Note Date: 10/09/24 Principal diagnosis: Reason for follow-up is leukocytosis and pneumonia Patient is a 59-year-old male with a past medical history significant for Schizophrenia resident of adult foster care was sent to the [facility] concerning for increasing shortness of breath with subsequent worsening of his symptoms with the patient has been transferred to [facility] concerning for pneumonia. On today's evaluation that is 10/09/2024,the patient continues to be afebrile the patient is breathing comfortably on 3 L current oxygen no worsening chest pain no vomiting diarrhea and the changes reported. Patient white count is normalized to 10.1, creatinine 0.57 culture have been negative so far Objective - Vital Signs Vital signs: Vital Signs Temp 98.5 F 10/09/24 09:15 Pulse 64 10/09/24 09:15 Resp 16 10/09/24 09:15 BP 139/62 10/09/24 09:15 Pulse Ox 93 L 10/09/24 09:15 FiO2 50 10/06/24 11:08 Intake & Output 10/08/24 10/09/24 10/09/24 18:59 06:59 18:59 Intake Total 5480 486 3352 Output Total 480 1 Balance 756 978 0314 Weight 73.4 kg Intake: Intake, IV Titration 100 Amount Piperacillin-Tazobactam 3 100 .375 gm In Sodium Chloride 0.9% 100 ml @ 25 mls/hr IVPB Q8H [facility] Rx#: [id number] Oral [id number] Output: Chest Tube Drainage 480 Chest Tube Left 480 Urine 1 Other: Voiding Method Diaper Diaper Diaper # Voids 1 # Bowel Movements 1 - Exam GENERAL DESCRIPTION: Middle-age male lying in bed in no distress RESPIRATORY SYSTEM: Unlabored breathing , decreased breath sounds at bases HEART: S1 S2 regular rate and rhythm , ABDOMEN: Soft , no tenderness EXTREMITIES: No edema feet - Labs CBC & Chem 7: 10/09/24 07:10 10/09/24 07:10 Labs: Abnormal Lab Results - Last 24 Hours (Table) 10/08/24 10/08/24 10/09/24 Range/Units 16:32 20:57 05:48 RBC (4.30-5.90) m/uL Hgb (13.0-17.5) gm/dL Sodium (137-145) mmol/L Chloride (98-107) mmol/L Carbon Dioxide (22-30) mmol/L Creatinine (0.66-1.25) mg/dL Glucose (74-99) mg/dL POC Glucose (mg/dL) 274 H 382 H 120 H (70-110) mg/dL Calcium (8.4-10.2) mg/dL Total Protein (6.3-8.2) g/dL Albumin (3.5-5.0) g/dL 10/09/24 10/09/24 10/09/24 Range/Units 07:10 07:10 11:21 RBC 4.17 L (4.30-5.90) m/uL Hgb 12.8 L (13.0-17.5) gm/dL Sodium 132 L (137-145) mmol/L Chloride 93 L (98-107) mmol/L Carbon Dioxide 31 H (22-30) mmol/L Creatinine 0.57 L (0.66-1.25) mg/dL Glucose 159 H (74-99) mg/dL POC Glucose (mg/dL) 326 H (70-110) mg/dL Calcium 8.3 L (8.4-10.2) mg/dL Total Protein 6.2 L (6.3-8.2) g/dL Albumin 2.4 L (3.5-5.0) g/dL Assessment and Plan (1) Leukocytosis Current Visit: Yes Status: Acute Code(s): D72.829 - ELEVATED WHITE BLOOD CELL COUNT, UNSPECIFIED SNOMED Code(s): 147645879 (2) Pneumonia Current Visit: Yes Status: Acute Code(s): J18.9 - PNEUMONIA, UNSPECIFIED ORGANISM SNOMED Code(s): 911412621 Plan: 1patient presenting to the hospital for evaluation of increasing shortness of breath in this patient who did have evidence of bilateral effusion and basilar atelectasis more on the left side patient did have elevated white count apparently he did have elevated procalcitonin at the [facility], concerning for possible pneumonia question of community-acquired versus gram- negative less likely MRSA 2- MRSA nasal screen has been negative blood cultures are negative pleural fluid culture negative 3patient did have chest ultrasound concerning for 8 cm loculated left effusion, patient status post IR drainage of this fluid chest tube placement and cultures so far negative, patient has been evaluated by CT surgery and did have alteplase infusion with a chest x-ray this morning shows overall improvement in the effusion 3-patient did have resolution of the fever we will continue with Zosyn while inpatient and monitor clinical course closely Dictation was produced using [employer] dictation software. please excuse any g rammatical, word or spelling errors. Time with Patient: Less than 30
--- NOTE | 2024-10-10 16:30 | P.PN ---
Subjective Progress Note Date: 10/10/24 Principal diagnosis: Reason for follow-up is leukocytosis and pneumonia Patient is a 59-year-old male with a past medical history significant for Schizophrenia resident of adult foster care was sent to the [facility] concerning for increasing shortness of breath with subsequent worsening of his symptoms with the patient has been transferred to [facility] concerning for pneumonia. On today's evaluation that is 10/10/2024,the patient remains to be afebrile, patient is on 3 L nasal cannula supplemental oxygen and does not seem to be any distress patient has been given medication to relax him as we try to get out of the bed as reported with a sitter at the bedside no vomiting or diarrhea has been reported. No new lab has been repeated today Objective - Vital Signs Vital signs: Vital Signs Temp 98.5 F 10/09/24 20:25 Pulse 62 10/10/24 08:00 Resp 16 10/10/24 08:00 BP 151/73 10/10/24 08:00 Pulse Ox 93 L 10/10/24 08:00 FiO2 50 10/06/24 11:08 Intake & Output 10/09/24 10/10/24 10/10/24 18:59 06:59 18:59 Intake Total 1421 598 Output Total 9027 860 3159 Balance 371 -800 -1202 Weight 74 kg Intake: Oral 1421 598 Output: Urine 3446 939 0817 Other: Voiding Method Diaper Diaper Diaper External Catheter External Catheter - Exam GENERAL DESCRIPTION: Middle-age male lying in bed in no distress RESPIRATORY SYSTEM: Unlabored breathing , decreased breath sounds at bases HEART: S1 S2 regular rate and rhythm , ABDOMEN: Soft , no tenderness EXTREMITIES: No edema feet - Labs CBC & Chem 7: 10/09/24 07:10 10/09/24 07:10 Labs: Abnormal Lab Results - Last 24 Hours (Table) 10/09/24 10/09/24 10/10/24 Range/Units 16:28 20:08 05:47 POC Glucose (mg/dL) 366 H 266 H 260 H (70-110) mg/dL 10/10/24 Range/Units 11:39 POC Glucose (mg/dL) 269 H (70-110) mg/dL Assessment and Plan (1) Leukocytosis Current Visit: Yes Status: Acute Code(s): D72.829 - ELEVATED WHITE BLOOD CELL COUNT, UNSPECIFIED SNOMED Code(s): 484190928 (2) Pneumonia Current Visit: Yes Status: Acute Code(s): J18.9 - PNEUMONIA, UNSPECIFIED ORGANISM SNOMED Code(s): 806264891 Plan: 1patient presenting to the hospital for evaluation of increasing shortness of breath in this patient who did have evidence of bilateral effusion and basilar atelectasis more on the left side patient did have elevated white count apparently he did have elevated procalcitonin at the [facility], concerning for possible pneumonia question of community-acquired versus gram- negative less likely MRSA 2- MRSA nasal screen has been negative blood cultures are negative pleural fluid culture negative 3patient did have chest ultrasound concerning for 8 cm loculated left effusion, patient status post IR drainage of this fluid chest tube placement and cultures so far negative, patient has been evaluated by CT surgery and did have alteplase infusion with a chest x-ray this morning shows overall improvement in the effusion 3-patient did have resolution of the fever and the patient white count normalized blood culture have been negative local culture negative for resistant pathogen we will continue with Zosyn while inpatient and transition to oral Augmentin on discharge Dictation was produced using [employer] dictation software. please excuse any grammatical, word or spelling errors. Time with Patient: Less than 30
[2024-10-10 17:01] LABS: Glucose,Whole Blood 306 mg/dL (70-110)
--- NOTE | 2024-10-10 17:26 | P.PN ---
Subjective Progress Note Date: 10/10/24 This is a 59-year-old male patient with a known history of schizophrenia and resides in a adult foster care setting who had been brought into [facility] with increasing shortness of breath on September 22, 2024. He was requiring Airvo high flow oxygen and not showing much improvement and was mike sferred here direct admit to the selective care unit today. Chest x-ray here reveals bilateral pleural effusion and basilar infiltrates left greater than right. Correlate for underlying CHF. Possible pneumonia. Large lobulated density in the left lobe. He is currently sitting up in a chair. Awake and alert. Somewhat uncooperative. A health and safety inspector is at the bedside. Continuously taking off his Airvo high flow oxygen device. This is currently set at 50 L and 80% FiO2. Procalcitonin at [place] was 2.40. He has been initiated on DuoNeb and elations, vancomycin and Zosyn. Ativan as needed. White count 14.9. Hemoglobin 13.9. Platelets 146. Sodium 136. Potassium 3.6. Bicarb 29. BUN 25. Creatinine 0.71. Glucose 157. He currently denies any worsening shortness of breath, cough or congestion. He is not clear as to why he was admitted. No family at the bedside. patient was seen today on 09/27/2024, patient remains at hypoxic, remains on Airvo at 50% FiO2 and 50 L flow patient is basically about the same seems to be more comfortable, he had a health and safety inspector at bedside. As at times he seems to be quite agitated and restless. Ultrasound of the chest was reviewed, may have some debris in the pleural effusion, and there is also lung tissue, hence am not planning thoracentesis at this point. My recommendation to continue antibiotics and diuretics, and continue to monitor, we will decide whether the patient could benefit from thoracentesis or a pigtail catheter placement.WBC count is 15.8 hemoglobin 13.2 basic metabolic profile is normal renal profile is normal Legionella antigen is negative. Procalcitonin at [place] was +2.40 Patient was seen today on 09/28/2024, basically the patient is about the same, remains on Airvo, 50% FiO2 and 50% liters flow, mental status is basically about the same, patient is encephalopathic, reviewed the ultrasound of the chest, patient seems to have loculated pleural effusion and I am recommending a pigtail catheter placement next week by interventional radiology in the meantime continue antibiotics. Continues to have leukocytosis, continues to have relatively normal electrolytes. Patient had elevated procalcitonin level on admission Patient was seen today on 09/29/2024, patient is basically about the same, erik ins on Airvo, he has a health and safety inspector at bedside, patient does not seem to verbalize much, remains encephalopathic. I have recommended pigtail catheter placement for his complicated or loculated pleural effusion, this will be done by interventional radiology hopefully tomorrow. In the meantime patient is receiving antibiotics for his pneumonia and parapneumonic effusion. The patient is seen today September 30, 2024 in follow-up on the selective care unit. He is currently resting in bed. Awake and alert. district agent remains at the bedside. He is continued on Airvo high flow oxygen at 45 L and 50% FiO2. Blood cultures revealing no growth thus far. White count 13.3. Hemoglobin 12.5. Platelets 190. Sodium 132. Potassium 3.5. Bicarb 27. BUN 21. Creatinine 0.73. Glucose 173. He is continued on Zosyn. Remains on bronchodilators. Plan is for pigtail catheter placement today for the left- sided loculated pleural effusion. Progress note dated October 01, 2024. 59-year-old male who is seen today in room 376. The patient is currently on Airvo, with settings of 50 L/min, and FiO2 of 85%. The patient is getting saline at 75 cc an hour. A pigtail catheter was placed on the left side yesterday, by interventional radiology. Count 10.4, hemoglobin 12.6, hematocrit 38.7, and a platelet count of 173,000. Sodium 131, potassium 3.4, chloride 97, CO2 28, BUN 18, creatinine 0.63. Glucose is 245. Calcium 7.6. Progress note dated October 02, 2024. 59-year-old male seen in room 376. The patient is currently on Airvo at 50 L/min with an FiO2 of 80%. He continues on Zosyn. A left pigtail catheter is noted. The patient clinically is doing better. We encouraged him today to use his incentive spirometer, which apparently he was not using. We have asked the nurse to call or contact centre coach the patient, to use it on a hourly basis. Current labs include white count 11.3, hemoglobin 12.7, hematocrit 38.8, and a normal platelet count of 202,000. Sodium 133, potassium 3.7, chlorides 100, CO2 25, BUN 14, and creatinine 0.62. Glucose is 173. Albumin is 2.3. Calcium is 7.6. Progress note dated October 03, 2024. 59-year-old male who is seen today in room 376. Currently, the patient is on Airvo, with settings of 50 L/min, and an FiO2 of 70%. The patient has had a fluctuating mental status, over the last few days. Currently, white count is 11.3, hemoglobin 13.4, hematocrit 40.3, platelet count 215,000. The patient had a blood gas done, and his pO2 is 55, pCO2 36, pH is 7.51. Glucose is 304. Sodium 132, potassium 4.2, chloride 96, CO2 31, BUN 11, creatinine 0.69. Al bumin is 2.3. Culture data has all been negative. Chest x-ray shows a left basilar pleural catheter in place, with decreasing size of moderate size pleural effusion with loculations. Progress note dated October 04, 2024. 59-year-old male who is seen today in room 376. He is awake and alert. He still on Airvo, with settings of 50 L/min, and a FiO2 of 65%. The patient does not manifest any signs or symptoms of respiratory difficulty or distress. He does continue on Zosyn. Current labs include a white count 9.9, hemoglobin 13.4, hematocrit 39.5, and a platelet count of 216,000. Sodium 132, potassium 3.9, chlorides 95, CO2 31, BUN 14, and creatinine 0.61. Glucose is 308. Albumin is 2.3. Cultures thus far are negative. Chest x-ray from October 03, has been reviewed. Progress note dated October 05, 2024. 59-year-old male seen in room 376. Sitter is in the room today. The patient continues on Airvo, at 40 L/min with an FiO2 of 50%. The patient is scheduled to have a CT scan of the chest on today. The patient continues on Zosyn. No IV fluids. Appears to be resting comfortably. No respiratory distress or difficulty. No new labs today other than a glucose of 266. CT scan of the chest shows a moderate loculated left-sided pleural fluid collection, with pleural drainage catheter noted. There is associated and adjacent left lung consolidation/atelectasis. There is a small to moderate right-sided pleural effusion as well. Progress note dated October 06, 2024. 59-year-old male seen again in room 376. There is a sitter in the room. The patient is on Airvo, with settings of 35 L/min, and an FiO2 of 40%. He is not receiving any fluids. He is on Zosyn. No new labs today other than a glucose of 219. Chest x-ray today shows diffuse left lung infiltrates, and edema. Pleural catheter is seen in the left side. There is no pneumothorax. Is on 10/07/2024, the patient is being seen for a follow-up. The patient has schizoaffective disorder/bipolar disorder/depression in addition to COPD/asthma, diabetes mellitus type 2, hypertension, hypothyroidism and history of diabetes mellitus type 2. The patient currently is being treated for a parapneumonic left-sided pleural effusion/exudate with loculation. The patient has a pigtail catheter inserted by interventional radiology and he is postop day #7. He remains on oxygen at 10 L/min nasal cannula with a pulse ox of 98%. Using incentive spirometer and is pulling approximately 750. Total amount of drainage over the past 24 hours has been in the order of 600 cc. He is receiving alteplase/dornase through the pigtail catheter and he has already received a total of 2 treatments. A third is to be administered today. The white cell count of 15 with a hemoglobin of 13.3 and a platelet count of 310. Electrolytes were not checked on today's evaluation. In terms of antibiotic coverage, the patient remains on IV Zosyn. The patient is also on Spiriva 1 inhalation a day and Ventolin nebulized treatments 4 times a day. Chest x-ray from today shows hazy and patchy densities in the left along with a left-sided pigtail catheter in place. On 10/08/2024 patient is being seen for a follow-up. Patient's was seen sitting up in a chair today. He feels weak and quite debilitated. He is postop day #8 following a left-sided pigtail catheter insertion for a parapneumonic effusion. The tube is connected to low intermittent suction. The tube is draining around 850 cc of output over the past 24 hours. He was given the third dose of alteplase/dornase yesterday. Chest x-ray from today was reviewed and the findings are essentially stable and the patient has no significant left pleural effusion accumulation. The patient has pleural-parenchymal opacity in the left there are similar and probably slightly improved. Meanwhile, the patient remains on oxygen at 5 L/min nasal cannula with a pulse ox of 95%. The patient remains on IV Zosyn. In terms of blood work, labs are not available from today. Yesterday's labs were noted. Comorbidities include COPD, diabetes mellitus, previous history of CVA, hypertension, hypothyroidism, and the patient has an extensive psychiatric history including depression/bipolar disorder/schizoaffective disorder. On 10/09/2024, the patient is being seen for a follow-up. Calm and comfortable. Earlier this morning, the pigtail catheter fell off and a follow-up chest x-ray was obtained in the morning that showed a trace left-sided pleural effusion and some residual patchy left basilar infiltrate/atelectasis. Respiratory status is stable and the patient is currently on 3 L of oxygen by nasal cannula. No new complaints. No fever or chills. Remains on Zosyn. He remains on Spiriva Respimat 2 puffs once a day and albuterol HFA 4 times a day. Remains on oral Diflucan. Rest of medications remain unchanged. The blood work from today shows a white cell count of 10 with a hemoglobin of 12.8 and a platelet count of 389. BUN is 10 with a creatinine of 0.5 and a sodium levels at 132. I do not see the need for reinsertion of the pigtail catheter. The patient is not having any significant shortness of breath at rest. Will obtain a follow-up chest x-ra y in the morning. He is weak. He gets quite tired upon sitting up in a chair. He is awake. At times confused. Tolerating diet. On 10/10/2024, the patient is being seen for a follow-up. Sitter at the bedside. At times confused. At times agitated. At the time of my evaluation, the patient had already received Ativan 0.5 mg and seems to be much more comfortable. He remains on oxygen 3 Dyspamet nasal cannula. His Levemir dose has been adjusted to to 28 units daily. No new complaints otherwise for now. Labs are essentially from yesterday. Pigtail catheter has been removed. Objective - Vital Signs Vital signs: Vital Signs Temp 98.5 F 10/09/24 20:25 Pulse 62 10/10/24 08:00 Resp 16 10/10/24 08:00 BP 151/73 10/10/24 08:00 Pulse Ox 93 L 10/10/24 08:00 FiO2 50 10/06/24 11:08 Intake & Output 10/09/24 10/10/24 10/10/24 18:59 06:59 18:59 Intake Total 1421 598 Output Total 1853 462 8233 Balance 371 800 -602 Weight 74 kg Intake: Oral 1421 598 Output: Urine 2221 032 5320 Other: Voiding Method Diaper Diaper Diaper External Catheter External Catheter - Exam CONSTITUTIONAL: Appears comfortable, cooperative, no acute distress currently on 4 L of oxygen nasal cannula RESPIRATORY: Lungs sounds diminished to his bilateral bases and the pigtail catheter has been removed CARDIOVASCULAR: S1, S2 present. Regular rate and rhythm, sinus rhythm on telemetry. Palpable peripheral pulses bilaterally. No edema present. No calf pain or tenderness noted. GASTROINTESTINAL: Abdomen soft, nontender, nondistended. Active bowel sounds present 4 quadrants. Tolerating diet. GENITOURINARY: Continues to void, episodes of incontinence with diaper/brief in place. INTEGUMENTARY: Skin is warm and dry with no clubbing or cyanosis present. NEUROLOGIC: No focal deficits. MUSKULOSKELETAL: Able to move all extremities, strength equal bilaterally. PSYCHIATRIC: Alert and oriented to person place and time, flat affect, intact judgment and insight. - Labs CBC & Chem 7: 10/09/24 07:10 10/09/24 07:10 Labs: Abnormal Lab Results - Last 24 Hours (Table) 10/09/24 10/09/24 10/09/24 Range/Units 11:21 16:28 20:08 POC Glucose (mg/dL) 326 H 366 H 266 H (70-110) mg/dL 10/10/24 Range/Units 05:47 POC Glucose (mg/dL) 260 H (70-110) mg/dL Assessment and Plan Plan: Acute hypoxemic respiratory failureSecondary to pneumonia and parapneumonic loculated left-sided pleural effusion and the patient has a pigtail catheter inserted in the left hemithorax and output is being monitored. Currently on 3 L of oxygen nasal cannula. Pigtail catheter has been removed. Left lower lobe pneumonia with a complicated loculated parapneumonic left-sided pleural effusion status post pigtail catheter insertion on 09/30/2024, pigtail catheter was removed on 10/09/2024 and follow-up chest x-ray shows only trace left-sided pleural effusion and atelectatic changes in left lung base. Dyspnea secondary to above, improved Loculated left-sided pleural effusion, S/P pigtail catheter placement, September 30, 2024. The patient has already received a total of 4 doses of alteplase/dornase and subsequently the pigtail catheter came off Leukocytosis secondary to above. Atrial fibrillation with a rapid ventricular response, currently in normal sinus mechanism Schizoaffective disorder. Altered mentation/agitation/delirium History of bipolar disorder with anxiety/depression. Diabetes mellitus, type II. History of mild intermittent chronic bronchial asthma. History of CVA. Hypertension. Gastroesophageal reflux disease. [facility] resident. Plan: Titrate oxygen flow to maintain saturation above 90%, currently on 3 L nasal cannula Pigtail catheter came off and there is no need for reinsertion. Follow-up chest x-ray shows a trace left-sided pleural effusion and some atelectatic tierney e/infiltrate in left lung base Continue IV Zosyn Continue Spiriva Continue albuterol nebulizer treatments 4 times a day Continue metoprolol 25 mg p.o. twice a day and Cardizem 360 mg CDc1 tablet a day Continue aspirin 81 mg p.o. daily Levemir dose has been increased to 28 units on a daily basis + scale coverage Continue Depakote and amantadine and trazodone Daily chest x-rays Encouraged use of incentive spirometer Advance diet as tolerated Sitter at the bedside [facility] Will continue
[2024-10-10] MEDS: INSULIN DETEMIR (LEVEMIR) 100 UNIT/ML SYR SQ SCH (20:10)
[2024-10-10 20:19] LABS: Glucose,Whole Blood 358 mg/dL (70-110)
[2024-10-11 06:17] LABS: Glucose,Whole Blood 210 mg/dL (70-110)
[2024-10-11 11:14] LABS: Glucose,Whole Blood 353 mg/dL (70-110)
[2024-10-11] MEDS ORDERED: OLANZapine 10 MG VIAL IM PRN (13:51)
--- NOTE | 2024-10-11 13:58 | P.PN ---
Progress Note - Text Progress Note Date: 10/11/24 Interval history: Patient was seen today for psychiatric follow-up as requested by primary hospi talist. Patient is currently on Depakote 500 mg 3 times a day. Patient apparently had an episode of agitation earlier today otherwise patient has been fairly directable. Patient is on on a one-to-one sitter, apparently since he has been admitted to the unit. Patient recognizes scientific technical writer, had a soft tone of voice, some disorganized thoughts. Claims that he is doing okay otherwise. Claims that he is having difficulty with breathing however is fairly vague about his medical issues. He was concerned that he has not been restarted back on Seroquel and wanted to get back started. He claims that his energy level is fairly low. He claims that he woke up this morning and was agitated. Claims that his sleep has been on and off. He has chronically poor and limited insight and judgment. Denying any auditory or visual hallucinations denying any suicidal homicidal ideations intent or plan. Appetite has been fair MENTAL STATUS EXAM: General Appearance: Patient appears to be thin, bald, stated age is alert, attempts to be cooperative, He is currently on oxygen nasal cannula. Patient appears to have fair hygiene and grooming wearing hospital gown Behavior: Patient is calmly lying in bed without any agitated behavior. Fair eye contact. Attempts to cooperate Speech: Patient's speech is fluent and nonpressured. Soft tone Mood/Affect: Patient reports their mood is "not good", affect is congruent and constricted Suicidality/Homicidality: Denies any suicidal or homicidal ideation intent or plan Perceptions: He denies any visual hallucinations, or auditory hallucinations Though content/process: Superficial, rambling at times, needs redirection. No delusions today or paranoia. Memory and concentration: Oriented and alert, oriented to place however could not recall date or situation, fair attention span Judgment and insight: Chronically poor/limited IMPRESSIONS: schizoaffective disorder -Rule out delirium given the patient current medical condition PLAN: -Continue current medical care as per primary team. Patient does not meet criteria for inpatient psychiatric admission. -Delirium precautions recommended with patient including - avoiding use of narcotics and MANAGER DOCUMENT sedatives, limit anticholinergic medications when possible, frequent re-orientation, minimize use of restraints, open window shades during the day and close them at night -Medications: Depakote ER 500 mg 3 times daily for mood stabilization, adding Seroquel scheduled 25 mg twice daily for mood stabilization/psychosis. Trazodone as needed for insomnia. Zyprexa p.o. and IM as needed for severe abdiaziz tation/aggression. Discontinue benzodiazepines. -Communicated plan to patient's nurse -Will continue to follow along as needed -Please contact with any questions
--- NOTE | 2024-10-11 14:03 | P.PN ---
Progress Note - Text Progress Note Date: 10/11/24 patient is a 59-year-old gentleman with past medical history significant for schizophrenia who is a resident of a adult foster care was transferred to [facility] from [facility] for worsening respiratory status. Patient initially presented to [facility] for shortness of breath and chest pain for 4 to 5 days. According to medical records, patient was complaining of shortness of breath on exertion and chest pain that was pleuritic in nature worsened by taking deep breaths. Patient was also complaining of lethargy and weakness. There is no complaint of cough. There was no complaint of fever or chills. Patient was worked up in [facility], initial CT chest done showed bilateral lower lobe consolidation greater on the left suspicious for pneumonia. Patient was admitted there and was started on IV antibiotics. Patient also had 2D echo done that showed normal LV systolic function with LVEF of 66 65%, there was some diastolic dysfunction present. No valvular pathology seen. While at [facility], patient respiratory status worsened, patient was requiring heated high flow. Because of respiratory status, transfer was requested and patient was transferred to [facility] Patient admitted to internal medicine service 09/27. Patient seen and examined. Patient is doing better compared to yesterday, patient did not answer many of my questions. 09/28. Patient seen and examined. Patient continues to be on Airvo. 09/29. Patient seen examined. Patient was agitated overnight and received Ativan. Continues to require heated high flow. 09/30. Patient seen and examined. Patient is not the best historian, not willing to answer any question. Patient being scheduled for IR guided pigtail catheter placement 10/01. Patient seen and examined. vital signs stable. Patient had IR guided pigtail catheter placement on left side. Patient lethargic, complaining of pain at the catheter site 10/02/2024. Patient seen and examined. Patient is awake, more responsive compared to yesterday. Patient states that he wants his tube to come out. Denies any chest pain 10/03/2024. Patient seen and examined. Patient had fever overnight 100.2. Currently on high flow Airvo at 70% FiO2, patient had A team this morning for shortness of breath. Currently doing better. 10/04. Patient seen and examined. Patient had low-grade fever overnight. Patient continues to have episodes when he becomes lethargic mostly at night but as the day goes by he becomes more alert. 10/05. Patient seen and examined. CT surgery evaluated, ordered alteplase instillation via pigtail catheter. . Patient seen and examined. Patient received pleural instillation of alteplase/dornase through his left chest pigtail catheter yesterday, draining thin serous drainage with 650 mL output. October 07: As of this afternoon patient had about 600 cc from his chest tube drain. On low continuous wall suction -20 cm water. On 10 L high flow nasal cannula. Has a congested cough. Decreased oral intake. October 08: Continues to have increased output through the left-sided chest tube. Eating better with encouragement. Including Ensure.. Up in a recliner. Per PT OT yesterday only walked 2 feet. Alteplase was given through the chest tube again today. More thick output. FiO2 down to 6 L October 09: Patient pulled out his pigtail catheter this morning. X-ray was ordered no pneumothorax. Oral intake much improved. On 3 L nasal cannula. Has a sitter as patient had been pulling off his oxygen. Spoke to the nurse. Will see if patient can do without oxygen. lead care manager spoke to the public guardian looking for SNF in the [place] area. October 10: Episodes of anxiety with some agitation. Required Ativan. Patient was seen by psychiatry on October 05. Will have them review the patient to see if further medication need to be adjusted. Spoke to social science manager Lore. Looking into placement. Otherwise patient is eating well. On 3 L of nasal cannula. Psychiatry requested to reevaluate medications. Patient started on Levemir yesterday. Tolerating well. Increase Levemir to 28 units. October 11: Psychiatry Dr. Parson will reevaluate the patient today and make some medication changes. Still looking for patient placement per piano case maker. Increase Levemir to 36 units. And increase scheduled NovoLog with meals to 8 units. He has been tolerating insulin well. Spoke to pharmacist. Insulin allergies being discontinued. Patient walked 2 feet with minimum assist with rolling walker with PT OT. Active Medications Acetaminophen (Acetaminophen Tab 325 Mg Tab) 650 mg PO Q4HR PRN PRN Reason: Fever and/ or Mild Pain Last Admin: 10/11/24 10:25 Dose: 650 mg Albuterol Sulfate (Albuterol Hfa Inhaler) 2 puff INHALATION RT-QID [facility] Last Admin: 10/11/24 11:19 Dose: 2 puff Albuterol Sulfate (Albuterol Hfa Inhaler) 2 puff INHALATION RT-Q2H PRN PRN Reason: Shortness Of Breath Or Wheezing Amantadine HCl (Amantadine Hcl 100 Mg Cap) 100 mg PO DAILY [facility] Last Admin: 10/11/24 10:25 Dose: 100 mg Aspirin (Aspirin 81 Mg) 81 mg PO DAILY [facility] Last Admin: 10/11/24 10:26 Dose: 81 mg Dextrose/Water (Dextrose 50% Syringe 50 Ml) 25 ml IVP PER PROTOCOL PRN; Protocol PRN Reason: Hypoglycemia Dextrose/Water (Dextrose 50% Syringe 50 Ml) 50 ml IVP PER PROTOCOL PRN; Protocol PRN Reason: Hypoglycemia Diltiazem HCl (Diltiazem Cd 180 Mg Cap.Er.24h) 360 mg PO DAILY [facility] Last Admin: 10/11/24 10:26 Dose: 360 mg Divalproex Sodium (Divalproex Er 500 Mg Tab.Er.24h) 500 mg PO TID [facility] Last Admin: 10/11/24 10:25 Dose: 500 mg Fluconazole (Fluconazole 100 Mg Tab) 100 mg PO DAILY [facility]; Protocol Last Admin: 10/11/24 10:25 Dose: 100 mg Fluticasone Propionate (Fluticasone Nasal 50mcg/[place] 16gm Btl) 2 spray EA NOSTRIL DAILY [facility] Last Admin: 10/11/24 08:19 Dose: 1 spray Folic Acid (Folic Acid 1 Mg Tab) 1 mg PO DAILY [facility] Last Admin: 10/11/24 10:26 Dose: 1 mg Piperacillin Sod/Tazobactam (Sod 3.375 gm/ Sodium Chloride) 100 mls @ 25 mls/hr IVPB Q8H [facility]; Protocol Last Admin: 10/11/24 08:18 Dose: 25 mls/hr Insulin Aspart (Insulin Aspart (Novolog) 100 Unit/Ml Vial) 0 unit SQ ACHS [facility]; Protocol Last Admin: 10/11/24 11:58 Dose: 10 unit Insulin Aspart (Insulin Aspart (Novolog) 100 Unit/Ml Vial) 8 unit SQ AC-TID [facility] Insulin Detemir (Insulin Detemir (Levemir) 100 Unit/Ml Syr) 36 unit SQ HS [facility] Metoprolol Tartrate (Metoprolol Tartrate 25 Mg Tab) 25 mg PO BID [facility] Last Admin: 10/11/24 11:00 Dose: Not Given Miscellaneous Information (Pneumonia Protocol Utilized 1 Each Mis) 1 each PO ONCE PRN PRN Reason: Per Protocol Miscellaneous Information (Potassium Replacement Protocol 1 Each [facility]) 1 each MISCELLANE DAILY PRN; Protocol PRN Reason: Per Protocol Olanzapine (Olanzapine 10 Mg Vial) 5 mg IM TID PRN PRN Reason: severe agitation/aggression Olanzapine (Olanzapine 5 Mg Tab) 5 mg PO TID PRN PRN Reason: Severe Agitation Pantoprazole Sodium (Pantoprazole 40 Mg Tablet) 40 mg PO DAILY [facility] Last Admin: 10/11/24 10:25 Dose: 40 mg Quetiapine Fumarate (Quetiapine 25 Mg Tab) 25 mg PO BID [facility] Sodium Chloride (Saline Nasal Gel 14.1 Gm Tube) 1 applic NASAL QID [facility] Last Admin: 10/11/24 11:59 Dose: Not Given Tiotropium [place] (Tiotropium 2.5 Mcg Inhaler) 2 puff INHALATION RT-DAILY [facility] Last Admin: 10/11/24 08:16 Dose: 2 puff Trazodone HCl (Trazodone Hcl 50 Mg Tab) 50 mg PO HS PRN PRN Reason: SLEEP Last Admin: 10/05/24 21:01 Dose: 50 mg On examination: VITAL SIGNS: 98.4, 68, 17, 164 x 78, 94% on 3 L GENERAL APPEARANCE: Getting of the edge of the bed. HEENT: Normal external appearance of nose and ear. Oral cavity normal EYES: Pupils equal. Conjunctiva normal. NECK: JVD not raised. Mass not palpable. RESPIRATORY: Respiratory effort normal, decreased breath sounds. CARDIOVASCULAR: First and second sounds normal. No edema. ABDOMEN: Soft. Liver and spleen not palpable. No tenderness. No mass palpable. PSYCHIATRY: Answering simple questions INVESTIGATIONS, reviewed in the clinical context: October 09: White count 10.1 hemoglobin 12.8 platelets 389 sodium 132 potassium 3.8 creatinine 0.57 October 07: White count 15.1 hemoglobin 13.[address] chest moderate size not simple loculated left-sided pleural effusion with lateral left basilar pleural drainage catheter. Associated with left lung consolidation/atelectasis. Also moderate-sized right-sided pleural effusion with associated right posterior compression atelectasis. Some patchy infiltrates Pleural fluid culture: Negative Assessment and plan -Acute hypoxemic respiratory failure, secondary to pleural effusion/pneumonia, i better On 3 L nasal cannula -Bilateral pleural effusions, left greater than the right/parapneumonic effusion.: Creatinine improved Pigtail catheter placed by IR on September 30, 2024. Pulled out by the patient on October 09 Receiving alteplase/dornase 4 doses -[id number] really contributing to current symptoms -Complicated pneumonia suspect gram-negative organism, with parapneumonic effusion: Much better IV Zosyn. Pleural fluid culture negative -Paroxysmal atrial fibrillation with rapid ventricular rate, currently in sinus rhythm Cardizem CD 360 mg a day. Lopressor 25 mg twice daily Leukocytosis secondary to above Schizoaffective disorder -Bipolar disorder with anxiety/depression Desyrel. Depakote -Diabetes mellitus, type II, chronically insulin, uncontrolled with hyperglycemia On sliding scale with coverage. Increase scheduled NovoLog 8 units 3 times daily Started on Levemir 20 units on October 09. Tolerating well. Increase to 36 units nightly. -Essential hypertension Cardizem CD 360 mg -Gastroesophageal reflux disease Pepcid as needed -Public guardian -Disposition: lead care manager looking into placement 6 Dr. Parson from psychiatry will adjust his medications further. Dose of insulin increased.
[2024-10-11] MEDS: QUEtiapine 25 MG TAB PO SCH (14:35)
--- NOTE | 2024-10-11 16:17 | P.PN ---
Subjective Progress Note Date: 10/11/24 This is a 59-year-old male patient with a known history of schizophrenia and resides in a adult foster care setting who had been brought into [facility] with increasing shortness of breath on September 22, 2024. He was requiring Airvo high flow oxygen and not showing much improvement and was mike sferred here direct admit to the selective care unit today. Chest x-ray here reveals bilateral pleural effusion and basilar infiltrates left greater than right. Correlate for underlying CHF. Possible pneumonia. Large lobulated density in the left lobe. He is currently sitting up in a chair. Awake and alert. Somewhat uncooperative. A food safety technician is at the bedside. Continuously taking off his Airvo high flow oxygen device. This is currently set at 50 L and 80% FiO2. Procalcitonin at [place] was 2.40. He has been initiated on DuoNeb and elations, vancomycin and Zosyn. Ativan as needed. White count 14.9. Hemoglobin 13.9. Platelets 146. Sodium 136. Potassium 3.6. Bicarb 29. BUN 25. Creatinine 0.71. Glucose 157. He currently denies any worsening shortness of breath, cough or congestion. He is not clear as to why he was admitted. No family at the bedside. patient was seen today on 09/27/2024, patient remains at hypoxic, remains on Airvo at 50% FiO2 and 50 L flow patient is basically about the same seems to be more comfortable, he had a food safety technician at bedside. As at times he seems to be quite agitated and restless. Ultrasound of the chest was reviewed, may have some debris in the pleural effusion, and there is also lung tissue, hence am not planning thoracentesis at this point. My recommendation to continue antibiotics and diuretics, and continue to monitor, we will decide whether the patient could benefit from thoracentesis or a pigtail catheter placement.WBC count is 15.8 hemoglobin 13.2 basic metabolic profile is normal renal profile is normal Legionella antigen is negative. Procalcitonin at [place] was +2.40 Patient was seen today on 09/28/2024, basically the patient is about the same, remains on Airvo, 50% FiO2 and 50% liters flow, mental status is basically about the same, patient is encephalopathic, reviewed the ultrasound of the chest, patient seems to have loculated pleural effusion and I am recommending a pigtail catheter placement next week by interventional radiology in the meantime continue antibiotics. Continues to have leukocytosis, continues to have relatively normal electrolytes. Patient had elevated procalcitonin level on admission Patient was seen today on 09/29/2024, patient is basically about the same, erik ins on Airvo, he has a food safety technician at bedside, patient does not seem to verbalize much, remains encephalopathic. I have recommended pigtail catheter placement for his complicated or loculated pleural effusion, this will be done by interventional radiology hopefully tomorrow. In the meantime patient is receiving antibiotics for his pneumonia and parapneumonic effusion. The patient is seen today September 30, 2024 in follow-up on the selective care unit. He is currently resting in bed. Awake and alert. clinical project assistant remains at the bedside. He is continued on Airvo high flow oxygen at 45 L and 50% FiO2. Blood cultures revealing no growth thus far. White count 13.3. Hemoglobin 12.5. Platelets 190. Sodium 132. Potassium 3.5. Bicarb 27. BUN 21. Creatinine 0.73. Glucose 173. He is continued on Zosyn. Remains on bronchodilators. Plan is for pigtail catheter placement today for the left- sided loculated pleural effusion. Progress note dated October 01, 2024. 59-year-old male who is seen today in room 376. The patient is currently on Airvo, with settings of 50 L/min, and FiO2 of 85%. The patient is getting saline at 75 cc an hour. A pigtail catheter was placed on the left side yesterday, by interventional radiology. Count 10.4, hemoglobin 12.6, hematocrit 38.7, and a platelet count of 173,000. Sodium 131, potassium 3.4, chloride 97, CO2 28, BUN 18, creatinine 0.63. Glucose is 245. Calcium 7.6. Progress note dated October 02, 2024. 59-year-old male seen in room 376. The patient is currently on Airvo at 50 L/min with an FiO2 of 80%. He continues on Zosyn. A left pigtail catheter is noted. The patient clinically is doing better. We encouraged him today to use his incentive spirometer, which apparently he was not using. We have asked the nurse to middle [employer] coach the patient, to use it on a hourly basis. Current labs include white count 11.3, hemoglobin 12.7, hematocrit 38.8, and a normal platelet count of 202,000. Sodium 133, potassium 3.7, chlorides 100, CO2 25, BUN 14, and creatinine 0.62. Glucose is 173. Albumin is 2.3. Calcium is 7.6. Progress note dated October 03, 2024. 59-year-old male who is seen today in room 376. Currently, the patient is on Airvo, with settings of 50 L/min, and an FiO2 of 70%. The patient has had a fluctuating mental status, over the last few days. Currently, white count is 11.3, hemoglobin 13.4, hematocrit 40.3, platelet count 215,000. The patient had a blood gas done, and his pO2 is 55, pCO2 36, pH is 7.51. Glucose is 304. Sodium 132, potassium 4.2, chloride 96, CO2 31, BUN 11, creatinine 0.69. Al bumin is 2.3. Culture data has all been negative. Chest x-ray shows a left basilar pleural catheter in place, with decreasing size of moderate size pleural effusion with loculations. Progress note dated October 04, 2024. 59-year-old male who is seen today in room 376. He is awake and alert. He still on Airvo, with settings of 50 L/min, and a FiO2 of 65%. The patient does not manifest any signs or symptoms of respiratory difficulty or distress. He does continue on Zosyn. Current labs include a white count 9.9, hemoglobin 13.4, hematocrit 39.5, and a platelet count of 216,000. Sodium 132, potassium 3.9, chlorides 95, CO2 31, BUN 14, and creatinine 0.61. Glucose is 308. Albumin is 2.3. Cultures thus far are negative. Chest x-ray from October 03, has been reviewed. Progress note dated October 05, 2024. 59-year-old male seen in room 376. Sitter is in the room today. The patient continues on Airvo, at 40 L/min with an FiO2 of 50%. The patient is scheduled to have a CT scan of the chest on today. The patient continues on Zosyn. No IV fluids. Appears to be resting comfortably. No respiratory distress or difficulty. No new labs today other than a glucose of 266. CT scan of the chest shows a moderate loculated left-sided pleural fluid collection, with pleural drainage catheter noted. There is associated and adjacent left lung consolidation/atelectasis. There is a small to moderate right-sided pleural effusion as well. Progress note dated October 06, 2024. 59-year-old male seen again in room 376. There is a sitter in the room. The patient is on Airvo, with settings of 35 L/min, and an FiO2 of 40%. He is not receiving any fluids. He is on Zosyn. No new labs today other than a glucose of 219. Chest x-ray today shows diffuse left lung infiltrates, and edema. Pleural catheter is seen in the left side. There is no pneumothorax. Is on 10/07/2024, the patient is being seen for a follow-up. The patient has schizoaffective disorder/bipolar disorder/depression in addition to COPD/asthma, diabetes mellitus type 2, hypertension, hypothyroidism and history of diabetes mellitus type 2. The patient currently is being treated for a parapneumonic left-sided pleural effusion/exudate with loculation. The patient has a pigtail catheter inserted by interventional radiology and he is postop day #7. He remains on oxygen at 10 L/min nasal cannula with a pulse ox of 98%. Using incentive spirometer and is pulling approximately 750. Total amount of drainage over the past 24 hours has been in the order of 600 cc. He is receiving alteplase/dornase through the pigtail catheter and he has already received a total of 2 treatments. A third is to be administered today. The white cell count of 15 with a hemoglobin of 13.3 and a platelet count of 310. Electrolytes were not checked on today's evaluation. In terms of antibiotic coverage, the patient remains on IV Zosyn. The patient is also on Spiriva 1 inhalation a day and Ventolin nebulized treatments 4 times a day. Chest x-ray from today shows hazy and patchy densities in the left along with a left-sided pigtail catheter in place. On 10/08/2024 patient is being seen for a follow-up. Patient's was seen sitting up in a chair today. He feels weak and quite debilitated. He is postop day #8 following a left-sided pigtail catheter insertion for a parapneumonic effusion. The tube is connected to low intermittent suction. The tube is draining around 850 cc of output over the past 24 hours. He was given the third dose of alteplase/dornase yesterday. Chest x-ray from today was reviewed and the findings are essentially stable and the patient has no significant left pleural effusion accumulation. The patient has pleural-parenchymal opacity in the left there are similar and probably slightly improved. Meanwhile, the patient remains on oxygen at 5 L/min nasal cannula with a pulse ox of 95%. The patient remains on IV Zosyn. In terms of blood work, labs are not available from today. Yesterday's labs were noted. Comorbidities include COPD, diabetes mellitus, previous history of CVA, hypertension, hypothyroidism, and the patient has an extensive psychiatric history including depression/bipolar disorder/schizoaffective disorder. On 10/09/2024, the patient is being seen for a follow-up. Calm and comfortable. Earlier this morning, the pigtail catheter fell off and a follow-up chest x-ray was obtained in the morning that showed a trace left-sided pleural effusion and some residual patchy left basilar infiltrate/atelectasis. Respiratory status is stable and the patient is currently on 3 L of oxygen by nasal cannula. No new complaints. No fever or chills. Remains on Zosyn. He remains on Spiriva Respimat 2 puffs once a day and albuterol HFA 4 times a day. Remains on oral Diflucan. Rest of medications remain unchanged. The blood work from today shows a white cell count of 10 with a hemoglobin of 12.8 and a platelet count of 389. BUN is 10 with a creatinine of 0.5 and a sodium levels at 132. I do not see the need for reinsertion of the pigtail catheter. The patient is not having any significant shortness of breath at rest. Will obtain a follow-up chest x-ra y in the morning. He is weak. He gets quite tired upon sitting up in a chair. He is awake. At times confused. Tolerating diet. On 10/10/2024, the patient is being seen for a follow-up. Sitter at the bedside. At times confused. At times agitated. At the time of my evaluation, the patient had already received Ativan 0.5 mg and seems to be much more comfortable. He remains on oxygen 3 Dyspamet nasal cannula. His Levemir dose has been adjusted to to 28 units daily. No new complaints otherwise for now. Labs are essentially from yesterday. Pigtail catheter has been removed. On 10/11/2024, patient is being seen for a follow-up. Essentially unchanged. Psychiatric evaluation was recommended. The patient is to be seen by psychiatry today. Respiratory status remained stable. Pigtail catheter was removed earlier. No respiratory distress. The patient remains on 3 L of oxygen nasal cannula with a pulse ox of 96%. Meanwhile, he has no significant cough or sputum production or respiratory distress. He is on Levemir insulin and the dose has been adjusted 36 units daily and NovoLog 8 units with meals. He is working with physical therapy. He is also looking for ECF placement. He remains on Depakote 5 mg p.o. 3 times daily and Seroquel 25 mg at bedtime and trazodone at bedtime and Zyprexa as needed and is also on amantadine. The patient remains on a combination of Lopressor 25 mg p.o. twice daily and Cardizem 360 mg p.o. daily he remains on IV Zosyn and Diflucan. Objective - Vital Signs Vital signs: Vital Signs Temp 98.4 F 10/11/24 06:55 Pulse 68 10/11/24 08:00 Resp 17 10/11/24 08:00 BP 164/78 10/11/24 06:55 Pulse Ox 94 L 10/11/24 08:18 FiO2 50 10/06/24 11:08 Intake & Output 10/10/24 10/11/24 10/11/24 18:59 06:59 18:59 Intake Total 716 150 Output Total 2700 2100 1100 Balance -1983 -950 Weight 77 kg Intake: Oral 716 150 Output: Urine 2700 2100 1100 Other: Voiding Method Diaper External Catheter External Catheter External Catheter # Bowel Movements 1 - Exam CONSTITUTIONAL: Appears comfortable, cooperative, no acute distress currently on 4 L of oxygen nasal cannula RESPIRATORY: Lungs sounds diminished to his bilateral bases and the pigtail catheter has been removed CARDIOVASCULAR: S1, S2 present. Regular rate and rhythm, sinus rhythm on telemetry. Palpable peripheral pulses bilaterally. No edema present. No calf pain or tenderness noted. GASTROINTESTINAL: Abdomen soft, nontender, nondistended. Active bowel sounds present 4 quadrants. Tolerating diet. GENITOURINARY: Continues to void, episodes of incontinence with diaper/brief in place. INTEGUMENTARY: Skin is warm and dry with no clubbing or cyanosis present. NEUROLOGIC: No focal deficits. MUSKULOSKELETAL: Able to move all extremities, strength equal bilaterally. PSYCHIATRIC: Alert and oriented to person place and time, flat affect, intact judgment and insight. - Labs CBC & Chem 7: 10/09/24 07:10 10/09/24 07:10 Labs: Abnormal Lab Results - Last 24 Hours (Table) 10/06/24 10/10/24 10/10/24 Range/Units 09:10 16:55 20:17 POC Glucose (mg/dL) 306 H 358 H (70-110) mg/dL Free Valproic Acid 29.2 H (4.8-17.3) mg/L 10/11/24 10/11/24 Range/Units 06:15 11:12 POC Glucose (mg/dL) 210 H 353 H (70-110) mg/dL Free Valproic Acid (4.8-17.3) mg/L Assessment and Plan Plan: Acute hypoxemic respiratory failureSecondary to pneumonia and parapneumonic loculated left-sided pleural effusion and the patient has a pigtail catheter inserted in the left hemithorax and output is being monitored. Currently on 3 L of oxygen nasal cannula. Pigtail catheter has been removed. Left lower lobe pneumonia with a complicated loculated parapneumonic left-sided pleural effusion status post pigtail catheter insertion on 09/30/2024, pigtail catheter was removed on 10/09/2024 and follow-up chest x-ray shows only trace left-sided pleural effusion and atelectatic changes in left lung base. Dyspnea secondary to above, improved Loculated left-sided pleural effusion, S/P pigtail catheter placement, September 30, 2024. The patient has already received a total of 4 doses of alteplase/dornase and subsequently the pigtail catheter came off Leukocytosis secondary to above. Atrial fibrillation with a rapid ventricular response, currently in normal sinus mechanism, remains on a combination of metoprolol and Cardizem Schizoaffective disorder. Altered mentation/agitation/delirium History of bipolar disorder with anxiety/depression. Diabetes mellitus, type II. History of mild intermittent chronic bronchial asthma. History of CVA. Hypertension. Gastroesophageal reflux disease. [facility] resident. Plan: Titrate oxygen flow to maintain saturation above 90%, currently on 3 L nasal cannula Pigtail catheter came off and there is no need for reinsertion. Follow-up chest x-ray shows a trace left-sided pleural effusion and some atelectatic change /infiltrate in left lung base Continue IV Zosyn and Diflucan Continue Spiriva Continue albuterol nebulizer treatments 4 times a day Continue metoprolol 25 mg p.o. twice a day and Cardizem 360 mg CDc1 tablet a day, no anticoagulants for now Continue aspirin 81 mg p.o. daily Levemir dose has been increased to 36 units on a daily basis + scale coverage Continue Depakote and amantadine and trazodone Seroquel was added Zyprexa for agitation Encouraged use of incentive spirometer Advance diet as tolerated Sitter at the bedside Psychiatric evaluation appreciated Will continue
[2024-10-11 17:21] LABS: Glucose,Whole Blood 343 mg/dL (70-110)
[2024-10-11] MEDS: INSULIN ASPART (NovoLOG) 100 UNIT/ML VIAL SQ SCH (18:50)
[2024-10-11 21:18] LABS: Glucose,Whole Blood 73 mg/dL (70-110)
[2024-10-11] MEDS: INSULIN DETEMIR (LEVEMIR) 100 UNIT/ML SYR SQ SCH (21:43)
[2024-10-12] MEDS: OLANZapine 5 MG TAB PO PRN (05:38)
[2024-10-12 06:41] LABS: Glucose,Whole Blood 336 mg/dL (70-110)
[2024-10-12 10:50] LABS: Glucose,Whole Blood 305 mg/dL (70-110)
[2024-10-12 12:22] LABS: African American GFR (CKD) >90 (>60 ml/min/1.73 sqM); Anion Gap 8 mmol/L; Blood Urea Nitrogen 10 mg/dL (9-20); Calcium 8.6 mg/dL (8.4-10.2); Carbon Dioxide 28 mmol/L (22-30); Chloride 100 mmol/L (98-107); Glucose 282 mg/dL (74-99); Non-African American GFR(CKD) >90 (>60 ml/min/1.73 sqM); Potassium 4.4 mmol/L (3.5-5.1); Sodium 136 mmol/L (137-145)
[2024-10-12 12:23] LABS: Basophils % (A) 0 %; Eosinophils # (A) 0.2 k/uL (0-0.7); Eosinophils % (A) 3 %; HCT 36.4 % (39.0-53.0); HGB 12.1 gm/dL (13.0-17.5); Lymphocytes # (A) 1.9 k/uL (1.0-4.8); Lymphocytes % (A) 25 %; MCH 31.2 pg (25.0-35.0); MCHC 33.2 g/dL (31.0-37.0); MCV 94.1 fL (80.0-100.0); Mean Platelet Volume 7.6; Monocytes # (A) 1.2 k/uL (0-1.0); Monocytes % (A) 16 %; Neutrophils # (A) 3.9 k/uL (1.3-7.7); Neutrophils % (A) 53 %; Platelet Count 296 k/uL (150-450); RBC 3.87 m/uL (4.30-5.90); RDW 14.6 % (11.5-15.5); WBC 7.4 k/uL (3.8-10.6)
--- NOTE | 2024-10-12 12:33 | P.PN ---
Progress Note - Text Progress Note Date: 10/12/24 patient is a 59-year-old gentleman with past medical history significant for schizophrenia who is a resident of a adult foster care was transferred to [facility] from [facility] for worsening respiratory status. Patient initially presented to [facility] for shortness of breath and chest pain for 4 to 5 days. According to medical records, patient was complaining of shortness of breath on exertion and chest pain that was pleuritic in nature worsened by taking deep breaths. Patient was also complaining of lethargy and weakness. There is no complaint of cough. There was no complaint of fever or chills. Patient was worked up in [facility], initial CT chest done showed bilateral lower lobe consolidation greater on the left suspicious for pneumonia. Patient was admitted there and was started on IV antibiotics. Patient also had 2D echo done that showed normal LV systolic function with LVEF of 66 65%, there was some diastolic dysfunction present. No valvular pathology seen. While at [facility], patient respiratory status worsened, patient was requiring heated high flow. Because of respiratory status, transfer was requested and patient was transferred to [facility] Patient admitted to internal medicine service 09/27. Patient seen and examined. Patient is doing better compared to yesterday, patient did not answer many of my questions. 09/28. Patient seen and examined. Patient continues to be on Airvo. 09/29. Patient seen examined. Patient was agitated overnight and received Ativan. Continues to require heated high flow. 09/30. Patient seen and examined. Patient is not the best historian, not willing to answer any question. Patient being scheduled for IR guided pigtail catheter placement 10/01. Patient seen and examined. vital signs stable. Patient had IR guided pigtail catheter placement on left side. Patient lethargic, complaining of pain at the catheter site 10/02/2024. Patient seen and examined. Patient is awake, more responsive compared to yesterday. Patient states that he wants his tube to come out. Denies any chest pain 10/03/2024. Patient seen and examined. Patient had fever overnight 100.2. Currently on high flow Airvo at 70% FiO2, patient had A team this morning for shortness of breath. Currently doing better. 10/04. Patient seen and examined. Patient had low-grade fever overnight. Patient continues to have episodes when he becomes lethargic mostly at night but as the day goes by he becomes more alert. 10/05. Patient seen and examined. CT surgery evaluated, ordered alteplase instillation via pigtail catheter. . Patient seen and examined. Patient received pleural instillation of alteplase/dornase through his left chest pigtail catheter yesterday, draining thin serous drainage with 650 mL output. October 07: As of this afternoon patient had about 600 cc from his chest tube drain. On low continuous wall suction -20 cm water. On 10 L high flow nasal cannula. Has a congested cough. Decreased oral intake. October 08: Continues to have increased output through the left-sided chest tube. Eating better with encouragement. Including Ensure.. Up in a recliner. Per PT OT yesterday only walked 2 feet. Alteplase was given through the chest tube again today. More thick output. FiO2 down to 6 L October 09: Patient pulled out his pigtail catheter this morning. X-ray was ordered no pneumothorax. Oral intake much improved. On 3 L nasal cannula. Has a sitter as patient had been pulling off his oxygen. Spoke to the nurse. Will see if patient can do without oxygen. search engine optimization manager spoke to the public guardian looking for SNF in the [facility]. October 10: Episodes of anxiety with some agitation. Required Ativan. Patient was seen by psychiatry on October 05. Will have them review the patient to see if further medication need to be adjusted. Spoke to social director Lore. Looking into placement. Otherwise patient is eating well. On 3 L of nasal cannula. Psychiatry requested to reevaluate medications. Patient started on Levemir yesterday. Tolerating well. Increase Levemir to 28 units. October 11: Psychiatry Dr. Parson will reevaluate the patient today and make some medication changes. Still looking for patient placement per foster care case manager. Increase Levemir to 36 units. And increase scheduled NovoLog with meals to 8 units. He has been tolerating insulin well. Spoke to pharmacist. Insulin allergies being discontinued. Patient walked 2 feet with minimum assist with rolling walker with PT OT. October 12: Patient seen by Dr. Parson from psychiatry. Seroquel 25 mg twice daily added. Patient doing definitely much better. Eating 100%. Pending placement. Active Medications Acetaminophen (Acetaminophen Tab 325 Mg Tab) 650 mg PO Q4HR PRN PRN Reason: Fever and/ or Mild Pain Last Admin: 10/12/24 05:04 Dose: 650 mg Albuterol Sulfate (Albuterol Hfa Inhaler) 2 puff INHALATION RT-QID [facility] Last Admin: 10/12/24 10:07 Dose: Not Given Albuterol Sulfate (Albuterol Hfa Inhaler) 2 puff INHALATION RT-Q2H PRN PRN Reason: Shortness Of Breath Or Wheezing Amantadine HCl (Amantadine Hcl 100 Mg Cap) 100 mg PO DAILY [facility] Last Admin: 10/12/24 09:48 Dose: 100 mg Aspirin (Aspirin 81 Mg) 81 mg PO DAILY [facility] Last Admin: 10/12/24 09:42 Dose: 81 mg Dextrose/Water (Dextrose 50% Syringe 50 Ml) 25 ml IVP PER PROTOCOL PRN; Protocol PRN Reason: Hypoglycemia Dextrose/Water (Dextrose 50% Syringe 50 Ml) 50 ml IVP PER PROTOCOL PRN; Protocol PRN Reason: Hypoglycemia Diltiazem HCl (Diltiazem Cd 180 Mg Cap.Er.24h) 360 mg PO DAILY [facility] Last Admin: 10/12/24 09:43 Dose: 360 mg Divalproex Sodium (Divalproex Er 500 Mg Tab.Er.24h) 500 mg PO TID [facility] Last Admin: 10/12/24 09:43 Dose: 500 mg Fluconazole (Fluconazole 100 Mg Tab) 100 mg PO DAILY [facility]; Protocol Last Admin: 10/12/24 09:42 Dose: 100 mg Fluticasone Propionate (Fluticasone Nasal 50mcg/[place] 16gm Btl) 2 spray EA NOSTRIL DAILY [facility] Last Admin: 10/12/24 09:39 Dose: Not Given Folic Acid (Folic Acid 1 Mg Tab) 1 mg PO DAILY [facility] Last Admin: 10/12/24 09:42 Dose: 1 mg Piperacillin Sod/Tazobactam (Sod 3.375 gm/ Sodium Chloride) 100 mls @ 25 mls/hr IVPB Q8H [facility]; Protocol Last Admin: 10/12/24 09:36 Dose: 25 mls/hr Insulin Aspart (Insulin Aspart (Novolog) 100 Unit/Ml Vial) 0 unit SQ ACHS [facility]; Protocol Last Admin: 10/12/24 07:27 Dose: 8 unit Insulin Aspart (Insulin Aspart (Novolog) 100 Unit/Ml Vial) 8 unit SQ AC-TID [facility] Last Admin: 10/12/24 07:28 Dose: 8 unit Insulin Detemir (Insulin Detemir (Levemir) 100 Unit/Ml Syr) 36 unit SQ HS [facility] Last Admin: 10/11/24 21:43 Dose: Not Given Metoprolol Tartrate (Metoprolol Tartrate 25 Mg Tab) 25 mg PO BID [facility] Last Admin: 10/12/24 09:42 Dose: 25 mg Miscellaneous Information (Pneumonia Protocol Utilized 1 Each Mis) 1 each PO ONCE PRN PRN Reason: Per Protocol Miscellaneous Information (Potassium Replacement Protocol 1 Each Mis) 1 each MISCELLANE DAILY PRN; Protocol PRN Reason: Per Protocol Olanzapine (Olanzapine 10 Mg Vial) 5 mg IM TID PRN PRN Reason: severe agitation/aggression Olanzapine (Olanzapine 5 Mg Tab) 5 mg PO TID PRN PRN Reason: Severe Agitation Last Admin: 10/12/24 05:38 Dose: 5 mg Pantoprazole Sodium (Pantoprazole 40 Mg Tablet) 40 mg PO DAILY [facility] Last Admin: 10/12/24 09:42 Dose: 40 mg Quetiapine Fumarate (Quetiapine 25 Mg Tab) 25 mg PO BID [facility] Last Admin: 10/12/24 09:42 Dose: 25 mg Sodium Chloride (Saline Nasal Gel 14.1 Gm Tube) 1 applic NASAL QID [facility] Last Admin: 10/12/24 09:39 Dose: Not Given Tiotropium [place] (Tiotropium 2.5 Mcg Inhaler) 2 puff INHALATION RT-DAILY [facility] Last Admin: 10/11/24 08:16 Dose: 2 puff Trazodone HCl (Trazodone Hcl 50 Mg Tab) 50 mg PO HS PRN PRN Reason: SLEEP Last Admin: 10/05/24 21:01 Dose: 50 mg On examination: VITAL SIGNS: 97.9, 60, 18, 128 x 71, 95% room air GENERAL APPEARANCE: Resting in bed, comfortable. HEENT: Normal external appearance of nose and ear. Oral cavity normal EYES: Pupils equal. Conjunctiva normal. NECK: JVD not raised. Mass not palpable. RESPIRATORY: Respiratory effort normal, decreased breath sounds. CARDIOVASCULAR: First and second sounds normal. No edema. ABDOMEN: Soft. Liver and spleen not palpable. No tenderness. No mass palpable. PSYCHIATRY: Answering simple questions INVESTIGATIONS, reviewed in the clinical context: October 12: White count 7.4 hemoglobin 12.1 platelets 296 October 09: White count 10.1 hemoglobin 12.8 platelets 389 sodium 132 potassium 3.8 creatinine 0.57 October 07: White count 15.1 hemoglobin 13.[address] chest moderate size not simple loculated left-sided pleural effusion with lateral left basilar pleural drainage catheter. Associated with left lung consolidation/atelectasis. Also moderate-sized right-sided pleural effusion with associated right posterior compression atelectasis. Some patchy infiltrates Pleural fluid culture: Negative Assessment and plan -Acute hypoxemic respiratory failure, secondary to pleural effusion/pneumonia, i better On 3 L nasal cannula -Bilateral pleural effusions, left greater than the right/parapneumonic effusion.: Creatinine improved Pigtail catheter placed by IR on September 30, 2024. Pulled out by the patient on October 09 Received alteplase/dornase 4 doses -[id number] really contributing to current symptoms -Complicated pneumonia suspect gram-negative organism, with parapneumonic effusion: Much better IV Zosyn. Pleural fluid culture negative -Paroxysmal atrial fibrillation with rapid ventricular rate, currently in sinus rhythm Cardizem CD 360 mg a day. Lopressor 25 mg twice daily Leukocytosis secondary to above Schizoaffective disorder -Bipolar disorder with anxiety/depression Desyrel. Depakote Seroquel 25 mg twice daily added for some agitation. Doing much better -Diabetes mellitus, type II, chronically insulin, uncontrolled with hyperglycemia On sliding scale with coverage. Change NovoLog 6 units 3 times daily Levemir decreased to 30 units nightly. -Essential hypertension Cardizem CD 360 mg -Gastroesophageal reflux disease Pepcid as needed -Public guardian -Disposition: search engine optimization manager looking into placement Patient definitely more comfortable. Adjust insulin dose. Await placement.
--- NOTE | 2024-10-12 13:54 | P.PN ---
Subjective Progress Note Date: 10/12/24 This is a 59-year-old male patient with a known history of schizophrenia and resides in a adult foster care setting who had been brought into [facility] with increasing shortness of breath on September 22, 2024. He was requiring Airvo high flow oxygen and not showing much improvement and was mike sferred here direct admit to the selective care unit today. Chest x-ray here reveals bilateral pleural effusion and basilar infiltrates left greater than right. Correlate for underlying CHF. Possible pneumonia. Large lobulated density in the left lobe. He is currently sitting up in a chair. Awake and alert. Somewhat uncooperative. A safety scientist is at the bedside. Continuously taking off his Airvo high flow oxygen device. This is currently set at 50 L and 80% FiO2. Procalcitonin at [place] was 2.40. He has been initiated on DuoNeb and elations, vancomycin and Zosyn. Ativan as needed. White count 14.9. Hemoglobin 13.9. Platelets 146. Sodium 136. Potassium 3.6. Bicarb 29. BUN 25. Creatinine 0.71. Glucose 157. He currently denies any worsening shortness of breath, cough or congestion. He is not clear as to why he was admitted. No family at the bedside. patient was seen today on 09/27/2024, patient remains at hypoxic, remains on Airvo at 50% FiO2 and 50 L flow patient is basically about the same seems to be more comfortable, he had a safety scientist at bedside. As at times he seems to be quite agitated and restless. Ultrasound of the chest was reviewed, may have some debris in the pleural effusion, and there is also lung tissue, hence am not planning thoracentesis at this point. My recommendation to continue antibiotics and diuretics, and continue to monitor, we will decide whether the patient could benefit from thoracentesis or a pigtail catheter placement.WBC count is 15.8 hemoglobin 13.2 basic metabolic profile is normal renal profile is normal Legionella antigen is negative. Procalcitonin at [place] was +2.40 Patient was seen today on 09/28/2024, basically the patient is about the same, remains on Airvo, 50% FiO2 and 50% liters flow, mental status is basically about the same, patient is encephalopathic, reviewed the ultrasound of the chest, patient seems to have loculated pleural effusion and I am recommending a pigtail catheter placement next week by interventional radiology in the meantime continue antibiotics. Continues to have leukocytosis, continues to have relatively normal electrolytes. Patient had elevated procalcitonin level on admission Patient was seen today on 09/29/2024, patient is basically about the same, erik ins on Airvo, he has a safety scientist at bedside, patient does not seem to verbalize much, remains encephalopathic. I have recommended pigtail catheter placement for his complicated or loculated pleural effusion, this will be done by interventional radiology hopefully tomorrow. In the meantime patient is receiving antibiotics for his pneumonia and parapneumonic effusion. The patient is seen today September 30, 2024 in follow-up on the selective care unit. He is currently resting in bed. Awake and alert. lab support technician remains at the bedside. He is continued on Airvo high flow oxygen at 45 L and 50% FiO2. Blood cultures revealing no growth thus far. White count 13.3. Hemoglobin 12.5. Platelets 190. Sodium 132. Potassium 3.5. Bicarb 27. BUN 21. Creatinine 0.73. Glucose 173. He is continued on Zosyn. Remains on bronchodilators. Plan is for pigtail catheter placement today for the left- sided loculated pleural effusion. Progress note dated October 01, 2024. 59-year-old male who is seen today in room 376. The patient is currently on Airvo, with settings of 50 L/min, and FiO2 of 85%. The patient is getting saline at 75 cc an hour. A pigtail catheter was placed on the left side yesterday, by interventional radiology. Count 10.4, hemoglobin 12.6, hematocrit 38.7, and a platelet count of 173,000. Sodium 131, potassium 3.4, chloride 97, CO2 28, BUN 18, creatinine 0.63. Glucose is 245. Calcium 7.6. Progress note dated October 02, 2024. 59-year-old male seen in room 376. The patient is currently on Airvo at 50 L/min with an FiO2 of 80%. He continues on Zosyn. A left pigtail catheter is noted. The patient clinically is doing better. We encouraged him today to use his incentive spirometer, which apparently he was not using. We have asked the nurse to assistant women's tennis coach the patient, to use it on a hourly basis. Current labs include white count 11.3, hemoglobin 12.7, hematocrit 38.8, and a normal platelet count of 202,000. Sodium 133, potassium 3.7, chlorides 100, CO2 25, BUN 14, and creatinine 0.62. Glucose is 173. Albumin is 2.3. Calcium is 7.6. Progress note dated October 03, 2024. 59-year-old male who is seen today in room 376. Currently, the patient is on Airvo, with settings of 50 L/min, and an FiO2 of 70%. The patient has had a fluctuating mental status, over the last few days. Currently, white count is 11.3, hemoglobin 13.4, hematocrit 40.3, platelet count 215,000. The patient had a blood gas done, and his pO2 is 55, pCO2 36, pH is 7.51. Glucose is 304. Sodium 132, potassium 4.2, chloride 96, CO2 31, BUN 11, creatinine 0.69. Al bumin is 2.3. Culture data has all been negative. Chest x-ray shows a left basilar pleural catheter in place, with decreasing size of moderate size pleural effusion with loculations. Progress note dated October 04, 2024. 59-year-old male who is seen today in room 376. He is awake and alert. He still on Airvo, with settings of 50 L/min, and a FiO2 of 65%. The patient does not manifest any signs or symptoms of respiratory difficulty or distress. He does continue on Zosyn. Current labs include a white count 9.9, hemoglobin 13.4, hematocrit 39.5, and a platelet count of 216,000. Sodium 132, potassium 3.9, chlorides 95, CO2 31, BUN 14, and creatinine 0.61. Glucose is 308. Albumin is 2.3. Cultures thus far are negative. Chest x-ray from October 03, has been reviewed. Progress note dated October 05, 2024. 59-year-old male seen in room 376. Sitter is in the room today. The patient continues on Airvo, at 40 L/min with an FiO2 of 50%. The patient is scheduled to have a CT scan of the chest on today. The patient continues on Zosyn. No IV fluids. Appears to be resting comfortably. No respiratory distress or difficulty. No new labs today other than a glucose of 266. CT scan of the chest shows a moderate loculated left-sided pleural fluid collection, with pleural drainage catheter noted. There is associated and adjacent left lung consolidation/atelectasis. There is a small to moderate right-sided pleural effusion as well. Progress note dated October 06, 2024. 59-year-old male seen again in room 376. There is a sitter in the room. The patient is on Airvo, with settings of 35 L/min, and an FiO2 of 40%. He is not receiving any fluids. He is on Zosyn. No new labs today other than a glucose of 219. Chest x-ray today shows diffuse left lung infiltrates, and edema. Pleural catheter is seen in the left side. There is no pneumothorax. Is on 10/07/2024, the patient is being seen for a follow-up. The patient has schizoaffective disorder/bipolar disorder/depression in addition to COPD/asthma, diabetes mellitus type 2, hypertension, hypothyroidism and history of diabetes mellitus type 2. The patient currently is being treated for a parapneumonic left-sided pleural effusion/exudate with loculation. The patient has a pigtail catheter inserted by interventional radiology and he is postop day #7. He remains on oxygen at 10 L/min nasal cannula with a pulse ox of 98%. Using incentive spirometer and is pulling approximately 750. Total amount of drainage over the past 24 hours has been in the order of 600 cc. He is receiving alteplase/dornase through the pigtail catheter and he has already received a total of 2 treatments. A third is to be administered today. The white cell count of 15 with a hemoglobin of 13.3 and a platelet count of 310. Electrolytes were not checked on today's evaluation. In terms of antibiotic coverage, the patient remains on IV Zosyn. The patient is also on Spiriva 1 inhalation a day and Ventolin nebulized treatments 4 times a day. Chest x-ray from today shows hazy and patchy densities in the left along with a left-sided pigtail catheter in place. On 10/08/2024 patient is being seen for a follow-up. Patient's was seen sitting up in a chair today. He feels weak and quite debilitated. He is postop day #8 following a left-sided pigtail catheter insertion for a parapneumonic effusion. The tube is connected to low intermittent suction. The tube is draining around 850 cc of output over the past 24 hours. He was given the third dose of alteplase/dornase yesterday. Chest x-ray from today was reviewed and the findings are essentially stable and the patient has no significant left pleural effusion accumulation. The patient has pleural-parenchymal opacity in the left there are similar and probably slightly improved. Meanwhile, the patient remains on oxygen at 5 L/min nasal cannula with a pulse ox of 95%. The patient remains on IV Zosyn. In terms of blood work, labs are not available from today. Yesterday's labs were noted. Comorbidities include COPD, diabetes mellitus, previous history of CVA, hypertension, hypothyroidism, and the patient has an extensive psychiatric history including depression/bipolar disorder/schizoaffective disorder. On 10/09/2024, the patient is being seen for a follow-up. Calm and comfortable. Earlier this morning, the pigtail catheter fell off and a follow-up chest x-ray was obtained in the morning that showed a trace left-sided pleural effusion and some residual patchy left basilar infiltrate/atelectasis. Respiratory status is stable and the patient is currently on 3 L of oxygen by nasal cannula. No new complaints. No fever or chills. Remains on Zosyn. He remains on Spiriva Respimat 2 puffs once a day and albuterol HFA 4 times a day. Remains on oral Diflucan. Rest of medications remain unchanged. The blood work from today shows a white cell count of 10 with a hemoglobin of 12.8 and a platelet count of 389. BUN is 10 with a creatinine of 0.5 and a sodium levels at 132. I do not see the need for reinsertion of the pigtail catheter. The patient is not having any significant shortness of breath at rest. Will obtain a follow-up chest x-ra y in the morning. He is weak. He gets quite tired upon sitting up in a chair. He is awake. At times confused. Tolerating diet. On 10/10/2024, the patient is being seen for a follow-up. Sitter at the bedside. At times confused. At times agitated. At the time of my evaluation, the patient had already received Ativan 0.5 mg and seems to be much more comfortable. He remains on oxygen 3 Dyspamet nasal cannula. His Levemir dose has been adjusted to to 28 units daily. No new complaints otherwise for now. Labs are essentially from yesterday. Pigtail catheter has been removed. On 10/11/2024, patient is being seen for a follow-up. Essentially unchanged. Psychiatric evaluation was recommended. The patient is to be seen by psychiatry today. Respiratory status remained stable. Pigtail catheter was removed earlier. No respiratory distress. The patient remains on 3 L of oxygen nasal cannula with a pulse ox of 96%. Meanwhile, he has no significant cough or sputum production or respiratory distress. He is on Levemir insulin and the dose has been adjusted 36 units daily and NovoLog 8 units with meals. He is working with physical therapy. He is also looking for ECF placement. He remains on Depakote 5 mg p.o. 3 times daily and Seroquel 25 mg at bedtime and trazodone at bedtime and Zyprexa as needed and is also on amantadine. The patient remains on a combination of Lopressor 25 mg p.o. twice daily and Cardizem 360 mg p.o. daily he remains on IV Zosyn and Diflucan. On 10/12/2024, the patient's condition is stable. Some limited agitation overnight and this morning he is on room air oxygen and he is resting comfortably in bed. No respiratory distress. White cell count 7.4 with hemoglobin 12.1 and a platelet count of 296. Electrolytes are all within normal limits. The patient seems to be feeling better. Eating better. Remains on Seroquel 25 mg twice a day and he was also seen by psychiatry. Objective - Vital Signs Vital signs: Vital Signs Temp 97.9 F 10/12/24 07:25 Pulse 60 10/12/24 07:25 Resp 18 10/12/24 07:25 BP 128/71 10/12/24 07:25 Pulse Ox 95 10/12/24 07:25 FiO2 50 10/06/24 11:08 Intake & Output 10/11/24 10/12/24 10/12/24 18:59 06:59 18:59 Intake Total 1300 1390 Output Total 2200 2210 Balance -900 -820 Weight 78.5 kg Intake: Intake, IV Titration 100 Amount Piperacillin-Tazobactam 3 100 .375 gm In Sodium Chloride 0.9% 100 ml @ 25 mls/hr IVPB Q8H [facility] Rx#: [id number] Oral 1200 1390 Output: Urine 2200 2210 Other: Voiding Method External Catheter External Catheter # Voids 2 # Bowel Movements 2 - Exam CONSTITUTIONAL: Appears comfortable, cooperative, no acute distress currently on 4 L of oxygen nasal cannula RESPIRATORY: Lungs sounds diminished to his bilateral bases and the pigtail catheter has been removed CARDIOVASCULAR: S1, S2 present. Regular rate and rhythm, sinus rhythm on telemetry. Palpable peripheral pulses bilaterally. No edema present. No calf pain or tenderness noted. GASTROINTESTINAL: Abdomen soft, nontender, nondistended. Active bowel sounds present 4 quadrants. Tolerating diet. GENITOURINARY: Continues to void, episodes of incontinence with diaper/brief in place. INTEGUMENTARY: Skin is warm and dry with no clubbing or cyanosis present. NEUROLOGIC: No focal deficits. MUSKULOSKELETAL: Able to move all extremities, strength equal bilaterally. PSYCHIATRIC: Alert and oriented to person place and time, flat affect, intact judgment and insight. - Labs CBC & Chem 7: 10/12/24 11:23 10/12/24 11:23 Labs: Abnormal Lab Results - Last 24 Hours (Table) 10/11/24 10/11/24 10/12/24 Range/Units 11:12 17:17 06:40 POC Glucose (mg/dL) 353 H 343 H 336 H (70-110) mg/dL Assessment and Plan Plan: Acute hypoxemic respiratory failureSecondary to pneumonia and parapneumonic loculated left-sided pleural effusion and the patient has a pigtail catheter inserted in the left hemithorax and output is being monitored. Currently on 3 L of oxygen nasal cannula. Pigtail catheter has been removed. Left lower lobe pneumonia with a complicated loculated parapneumonic left-sided pleural effusion status post pigtail catheter insertion on 09/30/2024, pigtail catheter was removed on 10/09/2024 and follow-up chest x-ray shows only trace left-sided pleural effusion and atelectatic changes in left lung base. Dyspnea secondary to above, improved Loculated left-sided pleural effusion, S/P pigtail catheter placement, September 30, 2024. The patient has already received a total of 4 doses of alteplase/dornase and subsequently the pigtail catheter came off Leukocytosis secondary to above. Atrial fibrillation with a rapid ventricular response, currently in normal sinus mechanism, remains on a combination of metoprolol and Cardizem Schizoaffective disorder. Altered mentation/agitation/delirium History of bipolar disorder with anxiety/depression. Diabetes mellitus, type II. History of mild intermittent chronic bronchial asthma. History of CVA. Hypertension. Gastroesophageal reflux disease. [facility] resident. Plan: The patient is calm and comfortable on the current regimen and the psychiatric medication adjustments were noted Patient currently on room air oxygen Pigtail catheter came off and there is no need for reinsertion. Follow-up chest x-ray shows a trace left-sided pleural effusion and some atelectatic change/infiltrate in left lung base Continue IV Zosyn and Diflucan Continue Spiriva Continue albuterol nebulizer treatments 4 times a day Continue metoprolol 25 mg p.o. twice a day and Cardizem 360 mg CD 1 tablet a day, no anticoagulants for now Continue aspirin 81 mg p.o. daily Levemir dose has been increased to 36 units on a daily basis + scale coverage Continue Depakote and amantadine and trazodone Seroquel was at a dose of 25 mg twice a day Zyprexa for agitation Encouraged use of incentive spirometer Advance diet as tolerated Sitter at the bedside Psychiatric evaluation appreciated Will continue
--- NOTE | 2024-10-12 16:00 | P.PN ---
Subjective Progress Note Date: 10/11/24 Principal diagnosis: Reason for follow-up is leukocytosis and pneumonia Patient is a 59-year-old male with a past medical history significant for Schizophrenia resident of adult foster care was sent to the [facility] concerning for increasing shortness of breath with subsequent worsening of his symptoms with the patient has been transferred to [facility] concerning for pneumonia. On today's evaluation that is 10/11/2024, the patient continues to be afebrile, the patient is on 3 L nasal oxygen and breathing comfortably, the Pt denies having any chest pain or worsening cough, the patient denies having any abdominal pain no vomiting or any diarrhea has been reported by the nursing staff. No new labs were obtained today Objective - Vital Signs Vital signs: Vital Signs Temp 97.3 F L 10/11/24 14:00 Pulse 62 10/11/24 14:00 Resp 17 10/11/24 14:00 BP 119/69 10/11/24 14:00 Pulse Ox 96 10/11/24 14:00 FiO2 50 10/06/24 11:08 Intake & Output 10/11/24 10/11/24 10/12/24 06:59 18:59 06:59 Intake Total 1300 Output Total 2100 2200 Balance -2100 -900 Weight 77 kg Intake: Intake, IV Titration 100 Amount Piperacillin-Tazobactam 3 100 .375 gm In Sodium Chloride 0.9% 100 ml @ 25 mls/hr IVPB Q8H [facility] Rx#: [id number] Oral 1200 Output: Urine 2100 2200 Other: Voiding Method External Catheter External Catheter # Voids 2 # Bowel Movements 2 - Exam GENERAL DESCRIPTION: Middle-age male lying in bed in no distress RESPIRATORY SYSTEM: Unlabored breathing , decreased breath sounds at bases HEART: S1 S2 regular rate and rhythm , ABDOMEN: Soft , no tenderness EXTREMITIES: No edema feet - Labs CBC & Chem 7: 10/12/24 11:23 10/12/24 11:23 Labs: Abnormal Lab Results - Last 24 Hours (Table) 10/06/24 10/11/24 10/11/24 Range/Units 09:10 06:15 11:12 POC Glucose (mg/dL) 210 H 353 H (70-110) mg/dL Free Valproic Acid 29.2 H (4.8-17.3) mg/L 10/11/24 Range/Units 17:17 POC Glucose (mg/dL) 343 H (70-110) mg/dL Free Valproic Acid (4.8-17.3) mg/L Assessment and Plan (1) Leukocytosis Current Visit: Yes Status: Acute Code(s): D72.829 - ELEVATED WHITE BLOOD CELL COUNT, UNSPECIFIED SNOMED Code(s): 795440797 (2) Pneumonia Current Visit: Yes Status: Acute Code(s): J18.9 - PNEUMONIA, UNSPECIFIED ORGANISM SNOMED Code(s): 167468814 Plan: 1patient presenting to the hospital for evaluation of increasing shortness of breath in this patient who did have evidence of bilateral effusion and basilar atelectasis more on the left side patient did have elevated white count apparently he did have elevated procalcitonin at the [facility], concerning for possible pneumonia question of community-acquired versus gram-ne gative less likely MRSA 2- MRSA nasal screen has been negative blood cultures are negative pleural fluid culture negative 3patient did have chest ultrasound concerning for 8 cm loculated left effusion, patient status post IR drainage of this fluid chest tube placement and cultures so far negative, patient has been evaluated by CT surgery and did have alteplase infusion with a chest x-ray this morning shows overall improvement in the effusion 3-patient did have resolution of the fever and the patient white count normalized blood culture have been negative local culture negative for resistant pathogen 4we will continue with Zosyn while inpatient and monitor clinical course closely Dictation was produced using [employer] dictation software. please excuse any grammatical, word or spelling errors. Time with Patient: Less than 30
--- NOTE | 2024-10-12 16:01 | P.PN ---
Subjective Progress Note Date: 10/12/24 Principal diagnosis: Reason for follow-up is leukocytosis and pneumonia Patient is a 59-year-old male with a past medical history significant for Schizophrenia resident of adult foster care was sent to the [facility] concerning for increasing shortness of breath with subsequent worsening of his symptoms with the patient has been transferred to [facility] concerning for pneumonia. On today's evaluation that is 10/12/2024, patient did not have any fever and denies any chills, patient is breathing comfortably on 3 L current oxygen patient with no chest pain or cough patient did not have any abdominal pain nausea vomiting or any loose stools. The patient white count 7.4, creatinine 0.58 culture has been negative so far Objective - Vital Signs Vital signs: Vital Signs Temp 97.9 F 10/12/24 07:25 Pulse 60 10/12/24 07:25 Resp 18 10/12/24 07:25 BP 128/71 10/12/24 07:25 Pulse Ox 95 10/12/24 12:55 FiO2 50 10/06/24 11:08 Intake & Output 10/11/24 10/12/24 10/12/24 18:59 06:59 18:59 Intake Total 1300 1390 Output Total 2200 2210 650 Balance -900 -820 -650 Weight 78.5 kg Intake: Intake, IV Titration 100 Amount Piperacillin-Tazobactam 3 100 .375 gm In Sodium Chloride 0.9% 100 ml @ 25 mls/hr IVPB Q8H [facility] Rx#: [id number] Oral 1200 1390 Output: Urine 2200 2210 650 Other: Voiding Method External Catheter External Catheter External Catheter # Voids 2 # Bowel Movements 2 - Exam GENERAL DESCRIPTION: Middle-age male lying in bed in no distress RESPIRATORY SYSTEM: Unlabored breathing , decreased breath sounds at bases HEART: S1 S2 regular rate and rhythm , ABDOMEN: Soft , no tenderness EXTREMITIES: No edema feet - Labs CBC & Chem 7: 10/12/24 11:23 10/12/24 11:23 Labs: Abnormal Lab Results - Last 24 Hours (Table) 10/11/24 10/12/24 10/12/24 Range/Units 17:17 06:40 10:48 RBC (4.30-5.90) m/uL Hgb (13.0-17.5) gm/dL Hct (39.0-53.0) % Monocytes # (0-1.0) k/uL Sodium (137-145) mmol/L Creatinine (0.66-1.25) mg/dL Glucose (74-99) mg/dL POC Glucose (mg/dL) 343 H 336 H 305 H (70-110) mg/dL 10/12/24 10/12/24 Range/Units 11:23 11:23 RBC 3.87 L (4.30-5.90) m/uL Hgb 12.1 L (13.0-17.5) gm/dL Hct 36.4 L (39.0-53.0) % Monocytes # 1.2 H (0-1.0) k/uL Sodium 136 L (137-145) mmol/L Creatinine 0.58 L (0.66-1.25) mg/dL Glucose 282 H (74-99) mg/dL POC Glucose (mg/dL) (70-110) mg/dL Assessment and Plan (1) Leukocytosis Current Visit: Yes Status: Acute Code(s): D72.829 - ELEVATED WHITE BLOOD CELL COUNT, UNSPECIFIED SNOMED Code(s): 664708585 (2) Pneumonia Current Visit: Yes Status: Acute Code(s): J18.9 - PNEUMONIA, UNSPECIFIED ORGANISM SNOMED Code(s): 977244550 Plan: 1patient presenting to the hospital for evaluation of increasing shortness of breath in this patient who did have evidence of bilateral effusion and basilar atelectasis more on the left side patient did have elevated white count apparently he did have elevated procalcitonin at the [facility], concerning for possible pneumonia question of community-acquired 2- MRSA nasal screen has been negative blood cultures are negative pleural fluid culture negative 3patient did have chest ultrasound concerning for 8 cm loculated left effusion, patient status post IR drainage of this fluid chest tube placement and cultures so far negative, patient has been evaluated by CT surgery and did have alteplase infusion with a chest x-ray this morning shows overall improvement in the effusion 3-patient did have resolution of the fever and the patient white count no rmalized blood culture have been negative local culture negative for resistant pathogen 4we will continue with Zosyn while inpatient however plan is for oral antibiotics and no IV antibiotics on discharge Dictation was produced using [employer] software. please excuse any grammatical, word or spelling errors. Time with Patient: Less than 30
[2024-10-12 16:56] LABS: Glucose,Whole Blood 423 mg/dL (70-110)
[2024-10-12] MEDS: INSULIN ASPART (NovoLOG) 100 UNIT/ML VIAL SQ SCH (17:07)
[2024-10-12 21:06] LABS: Glucose,Whole Blood 248 mg/dL (70-110)
[2024-10-12] MEDS: INSULIN DETEMIR (LEVEMIR) 100 UNIT/ML SYR SQ SCH (21:16)
[2024-10-12] MEDS: NAPROXEN 250 MG TAB PO PRN (22:49)
[2024-10-13 06:30] LABS: Glucose,Whole Blood 103 mg/dL (70-110)
[2024-10-13 08:47] LABS: Glucose,Whole Blood 236 mg/dL (70-110)
[2024-10-13 11:31] LABS: Glucose,Whole Blood 352 mg/dL (70-110)
--- NOTE | 2024-10-13 13:30 | P.PN ---
Subjective Progress Note Date: 10/13/24 This is a 59-year-old male patient with a known history of schizophrenia and resides in a adult foster care setting who had been brought into [facility] with increasing shortness of breath on September 22, 2024. He was requiring Airvo high flow oxygen and not showing much improvement and was imke sferred here direct admit to the selective care unit today. Chest x-ray here reveals bilateral pleural effusion and basilar infiltrates left greater than right. Correlate for underlying CHF. Possible pneumonia. Large lobulated density in the left lobe. He is currently sitting up in a chair. Awake and alert. Somewhat uncooperative. A health and safety director is at the bedside. Continuously taking off his Airvo high flow oxygen device. This is currently set at 50 L and 80% FiO2. Procalcitonin at [place] was 2.40. He has been initiated on DuoNeb and elations, vancomycin and Zosyn. Ativan as needed. White count 14.9. Hemoglobin 13.9. Platelets 146. Sodium 136. Potassium 3.6. Bicarb 29. BUN 25. Creatinine 0.71. Glucose 157. He currently denies any worsening shortness of breath, cough or congestion. He is not clear as to why he was admitted. No family at the bedside. patient was seen today on 09/27/2024, patient remains at hypoxic, remains on Airvo at 50% FiO2 and 50 L flow patient is basically about the same seems to be more comfortable, he had a health and safety director at bedside. As at times he seems to be quite agitated and restless. Ultrasound of the chest was reviewed, may have some debris in the pleural effusion, and there is also lung tissue, hence am not planning thoracentesis at this point. My recommendation to continue antibiotics and diuretics, and continue to monitor, we will decide whether the patient could benefit from thoracentesis or a pigtail catheter placement.WBC count is 15.8 hemoglobin 13.2 basic metabolic profile is normal renal profile is normal Legionella antigen is negative. Procalcitonin at [place] was +2.40 Patient was seen today on 09/28/2024, basically the patient is about the same, remains on Airvo, 50% FiO2 and 50% liters flow, mental status is basically about the same, patient is encephalopathic, reviewed the ultrasound of the chest, patient seems to have loculated pleural effusion and I am recommending a pigtail catheter placement next week by interventional radiology in the meantime continue antibiotics. Continues to have leukocytosis, continues to have relatively normal electrolytes. Patient had elevated procalcitonin level on admission Patient was seen today on 09/29/2024, patient is basically about the same, erik ins on Airvo, he has a health and safety director at bedside, patient does not seem to verbalize much, remains encephalopathic. I have recommended pigtail catheter placement for his complicated or loculated pleural effusion, this will be done by interventional radiology hopefully tomorrow. In the meantime patient is receiving antibiotics for his pneumonia and parapneumonic effusion. The patient is seen today September 30, 2024 in follow-up on the selective care unit. He is currently resting in bed. Awake and alert. full time babysitter remains at the bedside. He is continued on Airvo high flow oxygen at 45 L and 50% FiO2. Blood cultures revealing no growth thus far. White count 13.3. Hemoglobin 12.5. Platelets 190. Sodium 132. Potassium 3.5. Bicarb 27. BUN 21. Creatinine 0.73. Glucose 173. He is continued on Zosyn. Remains on bronchodilators. Plan is for pigtail catheter placement today for the left- sided loculated pleural effusion. Progress note dated October 01, 2024. 59-year-old male who is seen today in room 376. The patient is currently on Airvo, with settings of 50 L/min, and FiO2 of 85%. The patient is getting saline at 75 cc an hour. A pigtail catheter was placed on the left side yesterday, by interventional radiology. Count 10.4, hemoglobin 12.6, hematocrit 38.7, and a platelet count of 173,000. Sodium 131, potassium 3.4, chloride 97, CO2 28, BUN 18, creatinine 0.63. Glucose is 245. Calcium 7.6. Progress note dated October 02, 2024. 59-year-old male seen in room 376. The patient is currently on Airvo at 50 L/min with an FiO2 of 80%. He continues on Zosyn. A left pigtail catheter is noted. The patient clinically is doing better. We encouraged him today to use his incentive spirometer, which apparently he was not using. We have asked the nurse to high school academic coach the patient, to use it on a hourly basis. Current labs include white count 11.3, hemoglobin 12.7, hematocrit 38.8, and a normal platelet count of 202,000. Sodium 133, potassium 3.7, chlorides 100, CO2 25, BUN 14, and creatinine 0.62. Glucose is 173. Albumin is 2.3. Calcium is 7.6. Progress note dated October 03, 2024. 59-year-old male who is seen today in room 376. Currently, the patient is on Airvo, with settings of 50 L/min, and an FiO2 of 70%. The patient has had a fluctuating mental status, over the last few days. Currently, white count is 11.3, hemoglobin 13.4, hematocrit 40.3, platelet count 215,000. The patient had a blood gas done, and his pO2 is 55, pCO2 36, pH is 7.51. Glucose is 304. Sodium 132, potassium 4.2, chloride 96, CO2 31, BUN 11, creatinine 0.69. Al bumin is 2.3. Culture data has all been negative. Chest x-ray shows a left basilar pleural catheter in place, with decreasing size of moderate size pleural effusion with loculations. Progress note dated October 04, 2024. 59-year-old male who is seen today in room 376. He is awake and alert. He still on Airvo, with settings of 50 L/min, and a FiO2 of 65%. The patient does not manifest any signs or symptoms of respiratory difficulty or distress. He does continue on Zosyn. Current labs include a white count 9.9, hemoglobin 13.4, hematocrit 39.5, and a platelet count of 216,000. Sodium 132, potassium 3.9, chlorides 95, CO2 31, BUN 14, and creatinine 0.61. Glucose is 308. Albumin is 2.3. Cultures thus far are negative. Chest x-ray from October 03, has been reviewed. Progress note dated October 05, 2024. 59-year-old male seen in room 376. Sitter is in the room today. The patient continues on Airvo, at 40 L/min with an FiO2 of 50%. The patient is scheduled to have a CT scan of the chest on today. The patient continues on Zosyn. No IV fluids. Appears to be resting comfortably. No respiratory distress or difficulty. No new labs today other than a glucose of 266. CT scan of the chest shows a moderate loculated left-sided pleural fluid collection, with pleural drainage catheter noted. There is associated and adjacent left lung consolidation/atelectasis. There is a small to moderate right-sided pleural effusion as well. Progress note dated October 06, 2024. 59-year-old male seen again in room 376. There is a sitter in the room. The patient is on Airvo, with settings of 35 L/min, and an FiO2 of 40%. He is not receiving any fluids. He is on Zosyn. No new labs today other than a glucose of 219. Chest x-ray today shows diffuse left lung infiltrates, and edema. Pleural catheter is seen in the left side. There is no pneumothorax. Is on 10/07/2024, the patient is being seen for a follow-up. The patient has schizoaffective disorder/bipolar disorder/depression in addition to COPD/asthma, diabetes mellitus type 2, hypertension, hypothyroidism and history of diabetes mellitus type 2. The patient currently is being treated for a parapneumonic left-sided pleural effusion/exudate with loculation. The patient has a pigtail catheter inserted by interventional radiology and he is postop day #7. He remains on oxygen at 10 L/min nasal cannula with a pulse ox of 98%. Using incentive spirometer and is pulling approximately 750. Total amount of drainage over the past 24 hours has been in the order of 600 cc. He is receiving alteplase/dornase through the pigtail catheter and he has already received a total of 2 treatments. A third is to be administered today. The white cell count of 15 with a hemoglobin of 13.3 and a platelet count of 310. Electrolytes were not checked on today's evaluation. In terms of antibiotic coverage, the patient remains on IV Zosyn. The patient is also on Spiriva 1 inhalation a day and Ventolin nebulized treatments 4 times a day. Chest x-ray from today shows hazy and patchy densities in the left along with a left-sided pigtail catheter in place. On 10/08/2024 patient is being seen for a follow-up. Patient's was seen sitting up in a chair today. He feels weak and quite debilitated. He is postop day #8 following a left-sided pigtail catheter insertion for a parapneumonic effusion. The tube is connected to low intermittent suction. The tube is draining around 850 cc of output over the past 24 hours. He was given the third dose of alteplase/dornase yesterday. Chest x-ray from today was reviewed and the findings are essentially stable and the patient has no significant left pleural effusion accumulation. The patient has pleural-parenchymal opacity in the left there are similar and probably slightly improved. Meanwhile, the patient remains on oxygen at 5 L/min nasal cannula with a pulse ox of 95%. The patient remains on IV Zosyn. In terms of blood work, labs are not available from today. Yesterday's labs were noted. Comorbidities include COPD, diabetes mellitus, previous history of CVA, hypertension, hypothyroidism, and the patient has an extensive psychiatric history including depression/bipolar disorder/schizoaffective disorder. On 10/09/2024, the patient is being seen for a follow-up. Calm and comfortable. Earlier this morning, the pigtail catheter fell off and a follow-up chest x-ray was obtained in the morning that showed a trace left-sided pleural effusion and some residual patchy left basilar infiltrate/atelectasis. Respiratory status is stable and the patient is currently on 3 L of oxygen by nasal cannula. No new complaints. No fever or chills. Remains on Zosyn. He remains on Spiriva Respimat 2 puffs once a day and albuterol HFA 4 times a day. Remains on oral Diflucan. Rest of medications remain unchanged. The blood work from today shows a white cell count of 10 with a hemoglobin of 12.8 and a platelet count of 389. BUN is 10 with a creatinine of 0.5 and a sodium levels at 132. I do not see the need for reinsertion of the pigtail catheter. The patient is not having any significant shortness of breath at rest. Will obtain a follow-up chest x-ra y in the morning. He is weak. He gets quite tired upon sitting up in a chair. He is awake. At times confused. Tolerating diet. On 10/10/2024, the patient is being seen for a follow-up. Sitter at the bedside. At times confused. At times agitated. At the time of my evaluation, the patient had already received Ativan 0.5 mg and seems to be much more comfortable. He remains on oxygen 3 Dyspamet nasal cannula. His Levemir dose has been adjusted to to 28 units daily. No new complaints otherwise for now. Labs are essentially from yesterday. Pigtail catheter has been removed. On 10/11/2024, patient is being seen for a follow-up. Essentially unchanged. Psychiatric evaluation was recommended. The patient is to be seen by psychiatry today. Respiratory status remained stable. Pigtail catheter was removed earlier. No respiratory distress. The patient remains on 3 L of oxygen nasal cannula with a pulse ox of 96%. Meanwhile, he has no significant cough or sputum production or respiratory distress. He is on Levemir insulin and the dose has been adjusted 36 units daily and NovoLog 8 units with meals. He is working with physical therapy. He is also looking for ECF placement. He remains on Depakote 5 mg p.o. 3 times daily and Seroquel 25 mg at bedtime and trazodone at bedtime and Zyprexa as needed and is also on amantadine. The patient remains on a combination of Lopressor 25 mg p.o. twice daily and Cardizem 360 mg p.o. daily he remains on IV Zosyn and Diflucan. On 10/12/2024, the patient's condition is stable. Some limited agitation overnight and this morning he is on room air oxygen and he is resting comfortably in bed. No respiratory distress. White cell count 7.4 with hemoglobin 12.1 and a platelet count of 296. Electrolytes are all within normal limits. The patient seems to be feeling better. Eating better. Remains on Seroquel 25 mg twice a day and he was also seen by psychiatry. 10/13/2024, the patient is being seen for a follow-up. On and off, still having episodes of agitation where he becomes quite aggressive specially with the nursing staff. Psychiatric medications remain unchanged. Respiratory status is stable. The patient is currently on 3 L of oxygen by nasal cannula with pulse ox of 99%. No respiratory complaints. Resting comfortably in bed. No new labs are available from today. Meanwhile, medication remains unchanged. Remains on IV Zosyn. Objective - Vital Signs Vital signs: Vital Signs Temp 98.1 F 10/13/24 08:59 Pulse 62 10/13/24 09:15 Resp 18 10/13/24 02:00 BP 115/66 10/13/24 08:59 Pulse Ox 96 10/13/24 09:15 FiO2 50 10/06/24 11:08 Intake & Output 10/12/24 10/13/24 10/13/24 18:59 06:59 18:59 Output Total 1400 1800 Balance -1400 -1800 Weight 78.5 kg Output: Urine 1400 1800 Other: Voiding Method External Catheter External Catheter # Voids 0 - Exam CONSTITUTIONAL: Appears comfortable, cooperative, no acute distress currently on 4 L of oxygen nasal cannula RESPIRATORY: Lungs sounds diminished to his bilateral bases and the pigtail catheter has been removed CARDIOVASCULAR: S1, S2 present. Regular rate and rhythm, sinus rhythm on tel emetry. Palpable peripheral pulses bilaterally. No edema present. No calf pain or tenderness noted. GASTROINTESTINAL: Abdomen soft, nontender, nondistended. Active bowel sounds present 4 quadrants. Tolerating diet. GENITOURINARY: Continues to void, episodes of incontinence with diaper/brief in place. INTEGUMENTARY: Skin is warm and dry with no clubbing or cyanosis present. NEUROLOGIC: No focal deficits. MUSKULOSKELETAL: Able to move all extremities, strength equal bilaterally. PSYCHIATRIC: Alert and oriented to person place and time, flat affect, intact judgment and insight. - Labs CBC & Chem 7: 10/12/24 11:23 10/12/24 11:23 Labs: Abnormal Lab Results - Last 24 Hours (Table) 10/12/24 10/12/24 10/12/24 Range/Units 11:23 11:23 16:54 RBC 3.87 L (4.30-5.90) m/uL Hgb 12.1 L (13.0-17.5) gm/dL Hct 36.4 L (39.0-53.0) % Monocytes # 1.2 H (0-1.0) k/uL Sodium 136 L (137-145) mmol/L Creatinine 0.58 L (0.66-1.25) mg/dL Glucose 282 H (74-99) mg/dL POC Glucose (mg/dL) 423 H (70-110) mg/dL 10/12/24 10/13/24 Range/Units 21:03 08:44 RBC (4.30-5.90) m/uL Hgb (13.0-17.5) gm/dL Hct (39.0-53.0) % Monocytes # (0-1.0) k/uL Sodium (137-145) mmol/L Creatinine (0.66-1.25) mg/dL Glucose (74-99) mg/dL POC Glucose (mg/dL) 248 H 236 H (70-110) mg/dL Assessment and Plan Plan: Acute hypoxemic respiratory failureSecondary to pneumonia and parapneumonic loculated left-sided pleural effusion and the patient has a pigtail catheter inserted in the left hemithorax and output is being monitored. Currently on 3 L of oxygen nasal cannula. Pigtail catheter has been removed. Left lower lobe pneumonia with a complicated loculated parapneumonic left-sided pleural effusion status post pigtail catheter insertion on 09/30/2024, pigtail catheter was removed on 10/09/2024 and follow-up chest x-ray shows only trace left-sided pleural effusion and atelectatic changes in left lung base. Dyspnea secondary to above, improved Loculated left-sided pleural effusion, S/P pigtail catheter placement, September 30, 2024. The patient has already received a total of 4 doses of alteplase/dornase and subsequently the pigtail catheter came off Leukocytosis secondary to above. Atrial fibrillation with a rapid ventricular response, currently in normal sinus mechanism, remains on a combination of metoprolol and Cardizem Schizoaffective disorder. Altered mentation/agitation/delirium History of bipolar disorder with anxiety/depression. Diabetes mellitus, type II. History of mild intermittent chronic bronchial asthma. History of CVA. Hypertension. Gastroesophageal reflux disease. [facility] resident. Plan: Patient currently on 3 L of O2 nasal cannula Pigtail catheter came off and there is no need for reinsertion. Follow-up chest x-ray shows a trace left-sided pleural effusion and some atelectatic change/infiltrate in left lung base Continue IV Zosyn and Diflucan, complete the course Continue Spiriva Continue albuterol nebulizer treatments 4 times a day Continue metoprolol 25 mg p.o. twice a day and Cardizem 360 mg CD 1 tablet a day, no anticoagulants for now Continue aspirin 81 mg p.o. daily Levemir dose has been increased to 36 units on a daily basis + scale coverage Continue Depakote and amantadine and trazodone Seroquel was at a dose of 25 mg twice a day Zyprexa for agitation Encouraged use of incentive spirometer Advance diet as tolerated Sitter at the bedside Psychiatric evaluation appreciated Will continue
--- NOTE | 2024-10-13 14:46 | P.PN ---
Subjective Progress Note Date: 10/13/24 Principal diagnosis: Reason for follow-up is leukocytosis and pneumonia Patient is a 59-year-old male with a past medical history significant for Schizophrenia resident of adult foster care was sent to the [facility] concerning for increasing shortness of breath with subsequent worsening of his symptoms with the patient has been transferred to [facility] concerning for pneumonia. On today's evaluation that is 10/13/2024, Patient is afebrile patient is currently on 3 L nasal oxygen and denies having any worsening shortness of breath, the patient denies any chest pain or any worsening cough, the patient denies any nausea vomiting did not have any abdominal pain and no diarrhea. No lab draw today white count was 7.4 as of yesterday Objective - Vital Signs Vital signs: Vital Signs Temp 98.1 F 10/13/24 08:59 Pulse 62 10/13/24 09:15 Resp 18 10/13/24 02:00 BP 115/66 10/13/24 08:59 Pulse Ox 96 10/13/24 09:15 FiO2 50 10/06/24 11:08 Intake & Output 10/12/24 10/13/24 10/13/24 18:59 06:59 18:59 Output Total 1400 1800 650 Balance -1400 -1800 -650 Weight 78.5 kg Output: Urine 1400 1800 650 Other: Voiding Method External Catheter External Catheter External Catheter # Voids 0 - Exam GENERAL DESCRIPTION: Middle-age male lying in bed in no distress RESPIRATORY SYSTEM: Unlabored breathing , decreased breath sounds at bases HEART: S1 S2 regular rate and rhythm , ABDOMEN: Soft , no tenderness EXTREMITIES: No edema feet - Labs CBC & Chem 7: 10/12/24 11:23 10/12/24 11:23 Labs: Abnormal Lab Results - Last 24 Hours (Table) 10/12/24 10/12/24 10/13/24 Range/Units 16:54 21:03 08:44 POC Glucose (mg/dL) 423 H 248 H 236 H (70-110) mg/dL 10/13/24 Range/Units 11:29 POC Glucose (mg/dL) 352 H (70-110) mg/dL Assessment and Plan (1) Leukocytosis Current Visit: Yes Status: Acute Code(s): D72.829 - ELEVATED WHITE BLOOD CELL COUNT, UNSPECIFIED SNOMED Code(s): 957500674 (2) Pneumonia Current Visit: Yes Status: Acute Code(s): J18.9 - PNEUMONIA, UNSPECIFIED ORGANISM SNOMED Code(s): 986027536 Plan: 1patient presenting to the hospital for evaluation of increasing shortness of breath in this patient who did have evidence of bilateral effusion and basilar atelectasis more on the left side patient did have elevated white count apparently he did have elevated procalcitonin at the [facility], concerning for possible pneumonia question of community-acquired 2- MRSA nasal screen has been negative blood cultures are negative pleural fluid culture negative 3patient did have chest ultrasound concerning for 8 cm loculated left effusion, patient status post IR drainage of this fluid chest tube placement and cultures so far negative, patient has been evaluated by CT surgery and did have alteplase infusion with a chest x-ray this morning shows overall improvement in the effusion 3-patient did have resolution of the fever and the patient white count normalized blood culture have been negative local culture negative for resistant pathogen 4patient currently being treated with Zosyn while inpatient however plan is for oral Augmentin on discharge Dictation was produced using [employer] dictation software. please excuse any grammatical, word or spelling errors. Time with Patient: Less than 30
[2024-10-13 16:42] LABS: Glucose,Whole Blood 270 mg/dL (70-110)
--- NOTE | 2024-10-13 16:55 | P.PN ---
Progress Note - Text Progress Note Date: 10/13/24 patient is a 59-year-old gentleman with past medical history significant for schizophrenia who is a resident of a adult foster care was transferred to [facility] from [facility] for worsening respiratory status. Patient initially presented to [facility] for shortness of breath and chest pain for 4 to 5 days. According to medical records, patient was complaining of shortness of breath on exertion and chest pain that was pleuritic in nature worsened by taking deep breaths. Patient was also complaining of lethargy and weakness. There is no complaint of cough. There was no complaint of fever or chills. Patient was worked up in [facility], initial CT chest done showed bilateral lower lobe consolidation greater on the left suspicious for pneumonia. Patient was admitted there and was started on IV antibiotics. Patient also had 2D echo done that showed normal LV systolic function with LVEF of 66 65%, there was some diastolic dysfunction present. No valvular pathology seen. While at [facility], patient respiratory status worsened, patient was requiring heated high flow. Because of respiratory status, transfer was requested and patient was transferred to [facility] Patient admitted to internal medicine service 09/27. Patient seen and examined. Patient is doing better compared to yesterday, patient did not answer many of my questions. 09/28. Patient seen and examined. Patient continues to be on Airvo. 09/29. Patient seen examined. Patient was agitated overnight and received Ativan. Continues to require heated high flow. 09/30. Patient seen and examined. Patient is not the best historian, not willing to answer any question. Patient being scheduled for IR guided pigtail catheter placement 10/01. Patient seen and examined. vital signs stable. Patient had IR guided pigtail catheter placement on left side. Patient lethargic, complaining of pain at the catheter site 10/02/2024. Patient seen and examined. Patient is awake, more responsive compared to yesterday. Patient states that he wants his tube to come out. Denies any chest pain 10/03/2024. Patient seen and examined. Patient had fever overnight 100.2. Currently on high flow Airvo at 70% FiO2, patient had A team this morning for shortness of breath. Currently doing better. 10/04. Patient seen and examined. Patient had low-grade fever overnight. Patient continues to have episodes when he becomes lethargic mostly at night but as the day goes by he becomes more alert. 10/05. Patient seen and examined. CT surgery evaluated, ordered alteplase instillation via pigtail catheter. . Patient seen and examined. Patient received pleural instillation of alteplase/dornase through his left chest pigtail catheter yesterday, draining thin serous drainage with 650 mL output. October 07: As of this afternoon patient had about 600 cc from his chest tube drain. On low continuous wall suction -20 cm water. On 10 L high flow nasal cannula. Has a congested cough. Decreased oral intake. October 08: Continues to have increased output through the left-sided chest tube. Eating better with encouragement. Including Ensure.. Up in a recliner. Per PT OT yesterday only walked 2 feet. Alteplase was given through the chest tube again today. More thick output. FiO2 down to 6 L October 09: Patient pulled out his pigtail catheter this morning. X-ray was ordered no pneumothorax. Oral intake much improved. On 3 L nasal cannula. Has a sitter as patient had been pulling off his oxygen. Spoke to the nurse. Will see if patient can do without oxygen. manager of compliance spoke to the public guardian looking for SNF [facility] the [facility]. October 10: Episodes of anxiety with some agitation. Required Ativan. Patient was seen by psychiatry on October 05. Will have them review the patient to see if further medication need to be adjusted. Spoke to social media marketer Lore. Looking into placement. Otherwise patient is eating well. On 3 L of nasal cannula. Psychiatry requested to reevaluate medications. Patient started on Levemir yesterday. Tolerating well. Increase Levemir to 28 units. October 11: Psychiatry Dr. Pasron will reevaluate the patient today and make some medication changes. Still looking for patient placement per case management rn. Increase Levemir to 36 units. And increase scheduled NovoLog with meals to 8 units. He has been tolerating insulin well. Spoke to pharmacist. Insulin allergies being discontinued. Patient walked 2 feet with minimum assist with rolling walker with PT OT. October 12: Patient seen by Dr. Parson from psychiatry. Seroquel 25 mg twice daily added. Patient doing definitely much better. Eating 100%. Pending placement. October 13: Patient much more relaxed.. Eating well. Up to the bathroom. On 3 L nasal cannula. Active Medications Acetaminophen (Acetaminophen Tab 325 Mg Tab) 650 mg PO Q4HR PRN PRN Reason: Fever and/ or Mild Pain Last Admin: 10/13/24 09:03 Dose: 650 mg Albuterol Sulfate (Albuterol Hfa Inhaler) 2 puff INHALATION RT-QID [facility] Last Admin: 10/13/24 16:26 Dose: 2 puff Albuterol Sulfate (Albuterol Hfa Inhaler) 2 puff INHALATION RT-Q2H PRN PRN Reason: Shortness Of Breath Or Wheezing Amantadine HCl (Amantadine Hcl 100 Mg Cap) 100 mg PO DAILY [facility] Last Admin: 10/13/24 09:03 Dose: 100 mg Aspirin (Aspirin 81 Mg) 81 mg PO DAILY [facility] Last Admin: 10/13/24 09:02 Dose: 81 mg Dextrose/Water (Dextrose 50% Syringe 50 Ml) 25 ml IVP PER PROTOCOL PRN; Protocol PRN Reason: Hypoglycemia Dextrose/Water (Dextrose 50% Syringe 50 Ml) 50 ml IVP PER PROTOCOL PRN; Protocol PRN Reason: Hypoglycemia Diltiazem HCl (Diltiazem Cd 180 Mg Cap.Er.24h) 360 mg PO DAILY [facility] Last Admin: 10/13/24 09:03 Dose: 360 mg Divalproex Sodium (Divalproex Er 500 Mg Tab.Er.24h) 500 mg PO TID [facility] Last Admin: 10/13/24 16:16 Dose: 500 mg Fluconazole (Fluconazole 100 Mg Tab) 100 mg PO DAILY [facility]; Protocol Last Admin: 10/13/24 09:02 Dose: 100 mg Fluticasone Propionate (Fluticasone Nasal 50mcg/[place] 16gm Btl) 2 spray EA NOSTRIL DAILY [facility] Last Admin: 10/13/24 09:00 Dose: 2 spray Folic Acid (Folic Acid 1 Mg Tab) 1 mg PO DAILY [facility] Last Admin: 10/13/24 09:02 Dose: 1 mg Piperacillin Sod/Tazobactam (Sod 3.375 gm/ Sodium Chloride) 100 mls @ 25 mls/hr IVPB Q8H [facility]; Protocol Last Admin: 10/13/24 08:54 Dose: 25 mls/hr Insulin Aspart (Insulin Aspart (Novolog) 100 Unit/Ml Vial) 0 unit SQ ACHS [facility]; Protocol Last Admin: 10/13/24 12:26 Dose: 10 unit Insulin Aspart (Insulin Aspart (Novolog) 100 Unit/Ml Vial) 6 unit SQ AC-TID [facility] Last Admin: 10/13/24 12:26 Dose: 6 unit Insulin Detemir (Insulin Detemir (Levemir) 100 Unit/Ml Syr) 30 unit SQ HS [facility] Last Admin: 10/12/24 21:16 Dose: 30 unit Metoprolol Tartrate (Metoprolol Tartrate 25 Mg Tab) 25 mg PO BID [facility] Last Admin: 10/13/24 09:16 Dose: 25 mg Miscellaneous Information (Pneumonia Protocol Utilized 1 Each Misc) 1 each PO ONCE PRN PRN Reason: Per Protocol Miscellaneous Information (Potassium Replacement Protocol 1 Each [facility]) 1 each MISCELLANE DAILY PRN; Protocol PRN Reason: Per Protocol Naproxen (Naproxen 250 Mg Tab) 250 mg PO Q8HR PRN PRN Reason: Pain Last Admin: 10/12/24 22:49 Dose: 250 mg Olanzapine (Olanzapine 10 Mg Vial) 5 mg IM TID PRN PRN Reason: severe agitation/aggression Olanzapine (Olanzapine 5 Mg Tab) 5 mg PO TID PRN PRN Reason: Severe Agitation Last Admin: 10/12/24 22:49 Dose: 5 mg Pantoprazole Sodium (Pantoprazole 40 Mg Tablet) 40 mg PO DAILY [facility] Last Admin: 10/13/24 09:02 Dose: 40 mg Quetiapine Fumarate (Quetiapine 25 Mg Tab) 25 mg PO BID [facility] Last Admin: 10/13/24 09:02 Dose: 25 mg Sodium Chloride (Saline Nasal Gel 14.1 Gm Tube) 1 applic NASAL QID [facility] Last Admin: 10/13/24 14:56 Dose: Not Given Tiotropium [place] (Tiotropium 2.5 Mcg Inhaler) 2 puff INHALATION RT-DAILY [facility] Last Admin: 10/13/24 08:36 Dose: 2 puff Trazodone HCl (Trazodone Hcl 50 Mg Tab) 50 mg PO HS PRN PRN Reason: SLEEP Last Admin: 10/05/24 21:01 Dose: 50 mg On examination: VITAL SIGNS: 97.9, 68, 18, 127% 1, 93% on 3 L GENERAL APPEARANCE: Resting comfortable. HEENT: Normal external appearance of nose and ear. Oral cavity normal EYES: Pupils equal. Conjunctiva normal. NECK: JVD not raised. Mass not palpable. RESPIRATORY: Respiratory effort normal, decreased breath sounds. CARDIOVASCULAR: First and second sounds normal. No edema. ABDOMEN: Soft. Liver and spleen not palpable. No tenderness. No mass palpable. PSYCHIATRY: Answering simple questions INVESTIGATIONS, reviewed in the clinical context: October 12: White count 7.4 hemoglobin 12.1 platelets 296 October 09: White count 10.1 hemoglobin 12.8 platelets 389 sodium 132 potassium 3.8 creatinine 0.57 October 07: White count 15.1 hemoglobin 13.[address] chest moderate size not simple loculated left-sided pleural effusion with lateral left basilar pleural drainage catheter. Associated with left lung consolidation/atelectasis. Also moderate-sized right-sided pleural effusion with associated right posterior compression atelectasis. Some patchy infiltrates Pleural fluid culture: Negative Assessment and plan -Acute hypoxemic respiratory failure, secondary to pleural effusion/pneumonia, i better On 3 L nasal cannula -Bilateral pleural effusions, left greater than the right/parapneumonic effusion.: Creatinine improved Pigtail catheter placed by IR on September 30, 2024. Pulled out by the patient on October 09 Received alteplase/dornase 4 doses -[id number] really contributing to current symptoms -Complicated pneumonia suspect gram-negative organism, with parapneumonic effusion: Much better IV Zosyn. Pleural fluid culture negative -Paroxysmal atrial fibrillation with rapid ventricular rate, currently in sinus rhythm Cardizem CD 360 mg a day. Lopressor 25 mg twice daily Leukocytosis secondary to above Schizoaffective disorder -Bipolar disorder with anxiety/depression Desyrel. Depakote Seroquel 25 mg twice daily added for some agitation. Doing much better -Diabetes mellitus, type II, chronically insulin, uncontrolled with hyperglycemia On sliding scale with coverage. Change NovoLog 6 units 3 times daily Levemir decreased to 30 units nightly. -Essential hypertension Cardizem CD 360 mg -Gastroesophageal reflux disease Pepcid as needed -Public guardian -Disposition: manager of compliance looking into placement Will check with ID if Zosyn needs to be continued further. Other medication to continue. Pending placement.
[2024-10-13 20:26] LABS: Glucose,Whole Blood 307 mg/dL (70-110)
[2024-10-14 06:28] LABS: Glucose,Whole Blood 213 mg/dL (70-110)
[2024-10-14 08:50] VITALS: PULSE 58; RESP 17
[2024-10-14 11:29] LABS: Glucose,Whole Blood 229 mg/dL (70-110)
--- NOTE | 2024-10-14 12:08 | P.PN ---
Subjective Progress Note Date: 10/14/24 This is a 59-year-old male patient with a known history of schizophrenia and resides in a adult foster care setting who had been brought into [facility] with increasing shortness of breath on September 22, 2024. He was requiring Airvo high flow oxygen and not showing much improvement and was transf erred here direct admit to the selective care unit today. Chest x-ray here reveals bilateral pleural effusion and basilar infiltrates left greater than right. Correlate for underlying CHF. Possible pneumonia. Large lobulated density in the left lobe. He is currently sitting up in a chair. Awake and alert. Somewhat uncooperative. A product safety specialist is at the bedside. Continuously taking off his Airvo high flow oxygen device. This is currently set at 50 L and 80% FiO2. Procalcitonin at [place] was 2.40. He has been initiated on DuoNeb and elations, vancomycin and Zosyn. Ativan as needed. White count 14.9. Hemoglobin 13.9. Platelets 146. Sodium 136. Potassium 3.6. Bicarb 29. BUN 25. Creatinine 0.71. Glucose 157. He currently denies any worsening shortness of breath, cough or congestion. He is not clear as to why he was admitted. No family at the bedside. patient was seen today on 09/27/2024, patient remains at hypoxic, remains on Airvo at 50% FiO2 and 50 L flow patient is basically about the same seems to be more comfortable, he had a product safety specialist at bedside. As at times he seems to be quite agitated and restless. Ultrasound of the chest was reviewed, may have some debris in the pleural effusion, and there is also lung tissue, hence am not planning thoracentesis at this point. My recommendation to continue antibiotics and diuretics, and continue to monitor, we will decide whether the patient could benefit from thoracentesis or a pigtail catheter placement.WBC count is 15.8 hemoglobin 13.2 basic metabolic profile is normal renal profile is normalLe gionella antigen is negative. Procalcitonin at [place] was +2.40 Patient was seen today on 09/28/2024, basically the patient is about the same, remains on Airvo, 50% FiO2 and 50% liters flow, mental status is basically about the same, patient is encephalopathic, reviewed the ultrasound of the chest, patient seems to have loculated pleural effusion and I am recommending a pigtail catheter placement next week by interventional radiology in the meantime continue antibiotics. Continues to have leukocytosis, continues to have relatively normal electrolytes. Patient had elevated procalcitonin level on admission Patient was seen today on 09/29/2024, patient is basically about the same, remains on Airvo, he has a product safety specialist at bedside, patient does not seem to verbalize much, remains encephalopathic. I have recommended pigtail catheter placement for his complicated or loculated pleural effusion, this will be done by interventional radiology hopefully tomorrow. In the meantime patient is receiving antibiotics for his pneumonia and parapneumonic effusion. The patient is seen today September 30, 2024 in follow-up on the selective care unit. He is currently resting in bed. Awake and alert. cemetery worker remains at the bedside. He is continued on Airvo high flow oxygen at 45 L and 50% FiO2. Blood cultures revealing no growth thus far. White count 13.3. Hemoglobin 12.5. Platelets 190. Sodium 132. Potassium 3.5. Bicarb 27. BUN 21. Creatinine 0.73. Glucose 173. He is continued on Zosyn. Remains on bronchodilators. Plan is for pigtail catheter placement today for the left- sided loculated pleural effusion. The patient is seen today October 14, 2024 in follow-up on the regular medical floor. He is currently resting in bed. Awake and alert in no acute distress. He is maintaining O2 saturations in the 90s on room air. Pleural fluid cultures revealed no growth. Cytology was negative for malignancy. Glucose 213. He remains on albuterol and Spiriva. Continued on Diflucan. Completed Zosyn. Plan is to return to the adult foster care setting today. Objective - Vital Signs Vital signs: Vital Signs Temp 97.9 F 10/14/24 08:00 Pulse 58 L 10/14/24 08:00 Resp 17 10/14/24 08:00 BP 114/65 10/14/24 08:00 Pulse Ox 96 10/14/24 08:00 FiO2 50 10/06/24 11:08 Intake & Output 10/13/24 10/14/24 10/14/24 18:59 06:59 18:59 Intake Total 2810 450 Output Total 2792 8927 1101 Balance -4010 -172 -651 Weight 78.5 kg Intake: Oral 2810 450 Output: Urine 1350 3325 1100 Stool 1 1 Other: Voiding Method External Catheter External Catheter External Catheter # Voids 3 900 - Exam GENERAL EXAM: Alert, confused 59-year-old male, on room air, in no apparent distress. HEAD: Normocephalic. EYES: Normal reaction of pupils, equal size. NOSE: Clear with pink turbinates. THROAT: No erythema or exudates. NECK: No masses, no JVD. CHEST: No chest wall deformity. LUNGS: Equal air entry with few scattered rhonchi. CVS: S1 and S2 normal with no audible murmur, regular rhythm. ABDOMEN: No hepatosplenomegaly, normal bowel sounds, no guarding or rigidity. SPINE: No scoliosis or deformity SKIN: No rashes CENTRAL NERVOUS SYSTEM: No focal deficits, tone is normal in all 4 extremities. EXTREMITIES: There is no peripheral edema. No clubbing, no cyanosis. Peripheral pulses are intact. - Labs CBC & Chem 7: 10/12/24 11:23 10/12/24 11:23 Labs: Abnormal Lab Results - Last 24 Hours (Table) 10/13/24 10/13/24 10/14/24 Range/Units 16:41 20:24 06:27 POC Glucose (mg/dL) 270 H 307 H 213 H (70-110) mg/dL 10/14/24 Range/Units 11:28 POC Glucose (mg/dL) 229 H (70-110) mg/dL Assessment and Plan Assessment: Acute hypoxemic respiratory failure secondary to suspected bilateral pneumonia, bilateral pleural effusion, possible underlying diastolic congestive heart failure. Procalcitonin 2.[address] [place]. Echocardiogram revealed an ejection fraction of 60 to 65%. Recovered and on room air. Completed Zosyn Left lower lobe pneumonia with a complicated loculated parapneumonic left-sided pleural effusion status post pigtail catheter insertion on 09/30/2024, pigtail catheter was removed on 10/09/2024 and follow-up chest x-ray shows only trace left-sided pleural effusion and atelectatic changes in left lung base Leukocytosis secondary to above, recovered Atrial fibrillation with a rapid ventricular response, recovered Schizoaffective disorder History of bipolar disorder with anxiety/depression Diabetes mellitus, type II History of mild intermittent chronic bronchial asthma History of CVA Hypertension Gastroesophageal reflux disease [facility] resident Plan: The patient was seen and evaluated Labs and medications reviewed Pigtail catheter had been removed Completed Zosyn Stable and on room air Cleared for discharge This patient was seen independently by the pulmonary nurse practitioner addressing pulmonary issues I have personally seen and examined the patient, performed the documentation and the assessment and plan as written. Number of minutes spent on the visit: 23 Dictation was produced using [employer] dictation software. Please excuse any grammatical, word or spelling errors.
[2024-10-14 14:21] VITALS: BP 116/68; TEMP 98.3
--- NOTE | 2024-10-14 14:22 | P.PN ---
Progress Note - Text Progress Note Date: 10/14/24 Interval history: Patient was seen today for psychiatric follow-up. Patient is currently on Dep akote 500 mg 3 times a day and also is taking Seroquel twice a day. Patient's nurse is not complaining of any acute events for patient. Patient was seen laying in bed today agreeable to speak. He did claim that he ate a bed earlier of his lunch. He claims that he is taking his medications not reporting any problems at this time. He claims that his mood feels a bit more stable today. Appears to be more directable today with questions and also answers more appropriately. Claims that he is sleeping a bit better at nighttime. He remains focused on having his Seroquel increased. He has chronically poor and limited insight and judgment. Denying any auditory or visual hallucinations denying any suicidal homicidal ideations intent or plan. Appetite has been fair MENTAL STATUS EXAM: General Appearance: Patient appears to be thin, bald, stated age is alert, attempts to be cooperative, He is currently on oxygen nasal cannula. Patient appears to have fair hygiene and grooming wearing hospital gown Behavior: Patient is calmly lying in bed without any agitated behavior. Fair eye contact. Attempts to cooperate Speech: Patient's speech is fluent and nonpressured. Soft tone Mood/Affect: Patient reports their mood is "better", affect is congruent and constricted, improving mildly Suicidality/Homicidality: Denies any suicidal or homicidal ideation intent or plan Perceptions: He denies any visual hallucinations, or auditory hallucinations Though content/process: rambling at times, needs redirection. No delusions today or paranoia. more goal oriented Memory and concentration: Oriented and alert, oriented to place person does not know the date, fair attention span Judgment and insight: Chronically poor/limited improivng mildly IMPRESSIONS: schizoaffective disorder -Rule out delirium given the patient current medical condition PLAN: -Continue current medical care as per primary team. Patient does not meet criteria for inpatient psychiatric admission. -Delirium precautions recommended with patient including - avoiding use of narcotics and LAB AIDE sedatives, limit anticholinergic medications when possible, frequent re-orientation, minimize use of restraints, open window shades during the day and close them at night -Medications: Depakote ER 500 mg 3 times daily for mood stabilization, increase Seroquel scheduled 25 mg three times daily for mood stabilization/psychosis. Zyprexa p.o. and IM as needed for severe agitation/aggression. -Communicated plan to patient's nurse -at this time psychiatry will sign off. patient follows up with [facility] for mental health -Please contact with any questions
[2024-10-14] MEDS ORDERED: QUEtiapine 25 MG TAB PO SCH (16:00)
--- NOTE | 2024-10-14 20:05 | P.DS ---
Providers Date of admission: 09/26/24 08:53 Expected date of discharge: 10/14/24 Attending physician: Jae Morin Consults: 09/26/24 09:46 Consult Physician Routine Consulting Provider: Kusum Espinal Consult Reason/Comments: sepsis?, pna Do you want consulting provider notified?: Yes Placement Type Exists?: Yes Consult Physician Urgent Consulting Provider: Lesli Arroyo Consult Reason/Comments: pna, sent from [facility] Do you want consulting provider notified?: Yes Placement Type Exists?: Yes 10/04/24 11:33 Consult Physician Routine Consulting Provider: Dino Parson Consult Reason/Comments: medication changes needed? Do you want consulting provider notified?: Yes 10/04/24 14:21 Consult Physician Routine Consulting Provider: Brielle De Los Santos Consult Reason/Comments: Persistent left-sided pleural effusion, pigtail ca theter in Do you want consulting provider notified?: Yes 10/10/24 15:05 Consult Physician Routine Consulting Provider: Dino Parson Consult Reason/Comments: Increased agitation anxiety-reconsult Do you want consulting provider notified?: Yes Primary care physician: [facility] Course: patient is a 59-year-old gentleman with past medical history significant for schizophrenia who is a resident of a adult foster care was transferred to [facility] from [facility] for worsening respiratory status. Patient initially presented to [facility] for shortness of breath and chest pain for 4 to 5 days. According to medical records, patient was complaining of shortness of breath on exertion and chest pain that was pleuritic in nature worsened by taking deep breaths. Patient was also complaining of lethargy and weakness. There is no complaint of cough. There was no complaint of fever or chills. Patient was worked up in [facility], initial CT chest done showed bilateral lower lobe consolidation greater on the left suspicious for pneumonia. Patient was admitted there and was started on IV ant ibiotics. Patient also had 2D echo done that showed normal LV systolic function with LVEF of 66 65%, there was some diastolic dysfunction present. No valvular pathology seen. While at [facility], patient respiratory status worsened, patient was requiring heated high flow. Because of respiratory status, transfer was requested and patient was transferred to [facility] Patient admitted to internal medicine service 09/27. Patient seen and examined. Patient is doing better compared to yesterday, patient did not answer many of my questions. 09/28. Patient seen and examined. Patient continues to be on Airvo. 09/29. Patient seen examined. Patient was agitated overnight and received Ativan. Continues to require heated high flow. 09/30. Patient seen and examined. Patient is not the best historian, not willing to answer any question. Patient being scheduled for IR guided pigtail catheter placement 10/01. Patient seen and examined. vital signs stable. Patient had IR guided pigtail catheter placement on left side. Patient lethargic, complaining of pain at the catheter site 10/02/2024. Patient seen and examined. Patient is awake, more responsive compared to yesterday. Patient states that he wants his tube to come out. Denies any chest pain 10/03/2024. Patient seen and examined. Patient had fever overnight 100.2. Currently on high flow Airvo at 70% FiO2, patient had A team this morning for shortness of breath. Currently doing better. 10/04. Patient seen and examined. Patient had low-grade fever overnight. Patient continues to have episodes when he becomes lethargic mostly at night but as the day goes by he becomes more alert. 10/05. Patient seen and examined. CT surgery evaluated, ordered alteplase instillation via pigtail catheter. . Patient seen and examined. Patient received pleural instillation of alteplase/dornase through his left chest pigtail catheter yesterday, draining thin serous drainage with 650 mL output. October 07: As of this afternoon patient had about 600 cc from his chest tube drain. On low continuous wall suction -20 cm water. On 10 L high flow nasal cannula. Has a congested cough. Decreased oral intake. October 08: Continues to have increased output through the left-sided chest tube. Eating better with encouragement. Including Ensure.. Up in a recliner. Per PT OT yesterday only walked 2 feet. Alteplase was given through the chest tube again today. More thick output. FiO2 down to 6 L October 09: Patient pulled out his pigtail catheter this morning. X-ray was ordered no pneumothorax. Oral intake much improved. On 3 L nasal cannula. Has a sitter as patient had been pulling off his oxygen. Spoke to the nurse. Will see if patient can do without oxygen. manager spanish spoke to the public guardian looking for SNF in the [place] area. October 10: Episodes of anxiety with some agitation. Required Ativan. Patient was seen by psychiatry on October 05. Will have them review the patient to see i f further medication need to be adjusted. Spoke to director social Lore. Looking into placement. Otherwise patient is eating well. On 3 L of nasal cannula. Psychiatry requested to reevaluate medications. Patient started on Levemir yesterday. Tolerating well. Increase Levemir to 28 units. October 11: Psychiatry Dr. Parson will reevaluate the patient today and make some medication changes. Still looking for patient placement per disease case manager rn. Increase Levemir to 36 units. And increase scheduled NovoLog with meals to 8 units. He has been tolerating insulin well. Spoke to pharmacist. Insulin allergies being discontinued. Patient walked 2 feet with minimum assist with rolling walker with PT OT. October 12: Patient seen by Dr. Parson from psychiatry. Seroquel 25 mg twice daily added. Patient doing definitely much better. Eating 100%. Pending placement. October 13: Patient much more relaxed.. Eating well. Up to the bathroom. On 3 L nasal cannula. October 14: Doing well. Spoke to disease case manager rn. Excepted back at his assisted living. Patient to follow-up with [address] Campos from pulmonary. [facility] On examination: VITAL SIGNS: 98.3, 58, 17, 116 x 68, 95% room air GENERAL APPEARANCE: Resting comfortable. HEENT: Normal external appearance of nose and ear. Oral cavity normal EYES: Pupils equal. Conjunctiva normal. NECK: JVD not raised. Mass not palpable. RESPIRATORY: Respiratory effort normal, decreased breath sounds. CARDIOVASCULAR: First and second sounds normal. No edema. ABDOMEN: Soft. Liver and spleen not palpable. No tenderness. No mass palpable. PSYCHIATRY: Answering simple questions INVESTIGATIONS, reviewed in the clinical context: October 12: White count 7.4 hemoglobin 12.1 platelets 296 October 09: White count 10.1 hemoglobin 12.8 platelets 389 sodium 132 potassium 3.8 creatinine 0.57 October 07: White count 15.1 hemoglobin 13.[address] chest moderate size not simple loculated left-sided pleural effusion with la teral left basilar pleural drainage catheter. Associated with left lung consolidation/atelectasis. Also moderate-sized right-sided pleural effusion with associated right posterior compression atelectasis. Some patchy infiltrates Pleural fluid culture: Negative Assessment and plan -Acute hypoxemic respiratory failure, secondary to pleural effusion/pneumonia, i better On 3 L nasal cannula -Bilateral pleural effusions, left greater than the right/parapneumonic effusion.: Creatinine improved Pigtail catheter placed by IR on September 30, 2024. Pulled out by the patient on October 09 Received alteplase/dornase 4 doses -[id number] really contributing to current symptoms -Complicated pneumonia suspect gram-negative organism, with parapneumonic effusion: Much better IV Zosyn. Complete 3 more days of Augmentin Pleural fluid culture negative -Paroxysmal atrial fibrillation with rapid ventricular rate, currently in sinus rhythm Cardizem CD 360 mg a day. Lopressor 25 mg twice daily Leukocytosis secondary to above Schizoaffective disorder -Bipolar disorder with anxiety/depression Desyrel. Depakote Seroquel 25 mg twice daily added for agitation. Doing much better -Diabetes mellitus, type II, chronically insulin, uncontrolled with hyperglycemia Regular insulin twice daily -Essential hypertension Cardizem CD 360 mg -Gastroesophageal reflux disease Pepcid as needed -Public guardian -Disposition: manager spanish looking into placement Disposition: Home Plan - Discharge Summary Discharge Rx Participant: No New Discharge Prescriptions: New dilTIAZem HCL [Cardizem CD] 360 mg PO DAILY #30 cap Fluconazole [Diflucan] 100 mg PO DAILY #7 tab Fluticasone Nasal [place] [Flonase Nasal [place]] 2 spray EA NOSTRIL DAILY #1 ml Naproxen [Naprosyn] 250 mg PO Q8HR PRN #30 tab PRN Reason: Pain Tiotropium 2.5 Mcg/Puff [Spiriva Respimat 2.5 Mcg] 2 puff INHALATION RT-DAILY #1 each OLANZapine [ZyPREXA] 5 mg PO TID PRN #30 tab PRN Reason: Severe Agitation Amoxic-Pot Clav 875-125Mg [Augmentin 875-125] 1 tab PO BID #6 tab Albuterol Inhaler [Ventolin Hfa Inhaler] 2 puff INHALATION RT-Q2H PRN #1 each PRN Reason: Shortness Of Breath Or Wheezing QUEtiapine [SEROquel] 25 mg PO TID 30 Days #90 tab Continue Acetaminophen [Tylenol Arthritis] 650 mg PO Q8H PRN PRN Reason: Pain Metoprolol Tartrate [Lopressor] 25 mg PO BID Aspirin EC [Ecotrin Low Dose] 81 mg PO DAILY [place]-3 Acid Ethyl Esters [Lovaza] 1 gm PO DAILY amantadine HCL [Symmetrel] 100 mg PO DAILY traZODone HCL [Desyrel] 50 mg PO HS PRN PRN Reason: SLEEP Pantoprazole [Protonix] 40 mg PO DAILY Folic Acid 1 mg PO DAILY #30 tab Divalproex ER [Depakote ER] 500 mg PO TID Changed Insulin Regular, Human [NovoLIN R Flexpen] 15 units SQ AC-BID #0 Discontinued Diltiazem Cd [Cardizem CD] 240 mg PO DAILY Diltiazem Cd [Cardizem CD] 120 mg PO DAILY QUEtiapine FUMARATE [SEROquel] 600 mg PO HS Discharge Medication List Acetaminophen [Tylenol Arthritis] 650 mg PO Q8H PRN 12/02/19 [History] Aspirin EC [Ecotrin Low Dose] 81 mg PO DAILY 11/06/23 [History] Metoprolol Tartrate [Lopressor] 25 mg PO BID 11/06/23 [History] Pantoprazole [Protonix] 40 mg PO DAILY 11/06/23 [History] Folic Acid 1 mg PO DAILY #30 tab 11/08/23 [Rx] [place]-3 Acid Ethyl Esters [Lovaza] 1 gm PO DAILY 06/19/24 [History] Divalproex ER [Depakote ER] 500 mg PO TID 09/26/24 [History] amantadine HCL [Symmetrel] 100 mg PO DAILY 09/26/24 [History] traZODone HCL [Desyrel] 50 mg PO HS PRN 09/26/24 [History] Albuterol Inhaler [Ventolin Hfa Inhaler] 2 puff INHALATION RT-Q2H PRN #1 each 10/14/24 [Rx] Amoxic-Pot Clav 875-125Mg [Augmentin 875-125] 1 tab PO BID #6 tab 10/14/24 [Rx] Fluconazole [Diflucan] 100 mg PO DAILY #7 tab 10/14/24 [Rx] Fluticasone Nasal [place] [Flonase Nasal [place]] 2 spray EA NOSTRIL DAILY #1 ml 10/14/24 [Rx] Insulin Regular, Human [NovoLIN R Flexpen] 15 units SQ AC-BID #0 10/14/24 [Rx] Naproxen [Naprosyn] 250 mg PO Q8HR PRN #30 tab 10/14/24 [Rx] OLANZapine [ZyPREXA] 5 mg PO TID PRN #30 tab 10/14/24 [Rx] QUEtiapine [SEROquel] 25 mg PO TID 30 Days #90 tab 10/14/24 [Rx] Tiotropium 2.5 Mcg/Puff [Spiriva Respimat 2.5 Mcg] 2 puff INHALATION RT-DAILY #1 each 10/14/24 [Rx] dilTIAZem HCL [Cardizem CD] 360 mg PO DAILY #30 cap 10/14/24 [Rx] Follow up Appointment(s)/Referral(s): dr AZEB [Other] - 1 Week () Clinton Zimmerman MD [REFERRING] - 1 Week (Office is not answering at time of discharge. Please call for follow-up appointment.) [facility], [NON-STAFF] - Gamal Campos MD [STAFF PHYSICIAN] - 12/04/24 10:00 am [facility] [NON-STAFF] - 1 Week Patient Instructions/Handouts: Viral Pneumonia (DC) Discharge Disposition: HOME WITH HOME HEALTH SERVICES
--- NOTE | 2024-10-16 08:45 | P.PN ---
Subjective Progress Note Date: 10/14/24 Principal diagnosis: Reason for follow-up is leukocytosis and pneumonia Patient is a 59-year-old male with a past medical history significant for Schizophrenia resident of adult foster care was sent to the [facility] concerning for increasing shortness of breath with subsequent worsening of his symptoms with the patient has been transferred to [facility] concerning for pneumonia. On today's evaluation that is 10/14/2023, patient has been afebrile, patient is breathing comfortably and is currently on 3 L nasal cannula oxygen, patient denies having any significant cough no chest pain, patient denies nausea vomiting or diarrhea and no abdominal pain. No new lab has been obtained today Objective - Vital Signs Vital signs: Vital Signs Temp 97.9 F 10/14/24 08:00 Pulse 58 L 10/14/24 08:00 Resp 17 10/14/24 08:00 BP 114/65 10/14/24 08:00 Pulse Ox 96 10/14/24 08:00 FiO2 50 10/06/24 11:08 Intake & Output 10/13/24 10/14/24 10/14/24 18:59 06:59 18:59 Intake Total 2810 450 Output Total 1351 3325 1101 Balance -1351 -515 -651 Weight 78.5 kg Intake: Oral 2810 450 Output: Urine 1350 3325 1100 Stool 1 1 Other: Voiding Method External Catheter External Catheter External Catheter # Voids 3 900 2 - Exam GENERAL DESCRIPTION: Middle-age male lying in bed in no distress RESPIRATORY SYSTEM: Unlabored breathing , decreased breath sounds at bases HEART: S1 S2 regular rate and rhythm , ABDOMEN: Soft , no tenderness EXTREMITIES: No edema feet - Labs CBC & Chem 7: 10/12/24 11:23 10/12/24 11:23 Labs: Abnormal Lab Results - Last 24 Hours (Table) 10/13/24 10/13/24 10/14/24 Range/Units 16:41 20:24 06:27 POC Glucose (mg/dL) 270 H 307 H 213 H (70-110) mg/dL 10/14/24 Range/Units 11:28 POC Glucose (mg/dL) 229 H (70-110) mg/dL Assessment and Plan (1) Leukocytosis Status: Acute Code(s): D72.829 - ELEVATED WHITE BLOOD CELL COUNT, UNSPECIFIED SNOMED Code(s): 293850855 (2) Pneumonia Status: Acute Code(s): J18.9 - PNEUMONIA, UNSPECIFIED ORGANISM SNOMED Code(s): 600851195 Plan: 1patient presenting to the hospital for evaluation of increasing shortness of breath in this patient who did have evidence of bilateral effusion and basilar a telectasis more on the left side patient did have elevated white count apparently he did have elevated procalcitonin at the [facility], concerning for possible pneumonia question of community-acquired 2- MRSA nasal screen has been negative blood cultures are negative pleural fluid culture negative 3patient did have chest ultrasound concerning for 8 cm loculated left effusion, patient status post IR drainage of this fluid chest tube placement and cultures so far negative, patient has been evaluated by CT surgery and did have alteplase infusion with a chest x-ray this morning shows overall improvement in the effusion 3-patient did have resolution of the fever and the patient white count normalized blood culture have been negative local culture negative for resistant pathogen 4patient currently on oral Augmentin consider a 7-day course on discharge Dictation was produced using [employer] dictation software. please excuse any grammatical, word or spelling errors. Time with Patient: Less than 30
== END 2024-10-14 15:15 | disposition home health service (06) | DRG 871 ==
LOC: 3SCARD 08:53 → 3NCARDOBS 10-05 08:43 → 3SCARD 10-05 08:43 → 4SSUR 10-10 22:00
PROVIDERS: ADMIT Hospitalist; ATTEND Hospitalist
PROC: 8E0ZXY6 Isolation (ICD-10-PCS; 2024-09-29)
PROC: 0W9B30Z Drainage of Left Pleural Cavity with Drainage Device, Percutaneous Approach (ICD-10-PCS; principal; 2024-09-30)
PROC: 3E0L317 Introduction of Other Thrombolytic into Pleural Cavity, Percutaneous Approach (ICD-10-PCS; 2024-10-05)
PROC: 3E0L3GC Introduction of Other Therapeutic Substance into Pleural Cavity, Percutaneous Approach (ICD-10-PCS; 2024-10-05)
DX: A41.9 Sepsis, unspecified organism (principal); J15.69 Pneumonia due to other Gram-negative bacteria; J96.01 Acute respiratory failure with hypoxia; U07.1 COVID-19; J44.0 Chronic obstructive pulmonary disease with (acute) lower respiratory infection; J91.8 Pleural effusion in other conditions classified elsewhere; I50.30 Unspecified diastolic (congestive) heart failure; G93.40 Encephalopathy, unspecified; J98.11 Atelectasis; F31.30 Bipolar disorder, current episode depressed, mild or moderate severity, unspecified; F25.0 Schizoaffective disorder, bipolar type; I11.0 Hypertensive heart disease with heart failure; I48.0 Paroxysmal atrial fibrillation; E11.65 Type 2 diabetes mellitus with hyperglycemia; Z79.4 Long term (current) use of insulin; F41.9 Anxiety disorder, unspecified; F17.200 Nicotine dependence, unspecified, uncomplicated; J45.20 Mild intermittent asthma, uncomplicated; K21.9 Gastro-esophageal reflux disease without esophagitis; E03.9 Hypothyroidism, unspecified; Z79.82 Long term (current) use of aspirin; Z79.899 Other long term (current) drug therapy; Z86.73 Personal history of transient ischemic attack (TIA), and cerebral infarction without residual deficits; Z87.820 Personal history of traumatic brain injury
CPT/HCPCS: 32551; 36600; 70450; 71045; 71250; 76604; 76942; 80048; 80053; 80165; 82150; 82805; 82945; 83036; 83615; 83735; 84145; 84157; 85025; 85027; 85610; 87040; 87070; 87075; 87205; 87449; 87636; 88108; 88305; 89050; 94640; 94760

== ENCOUNTER 2024-10-16 15:36 | Inpatient (IN) | payer MEDICARE, OTHER ==
--- NOTE | 2024-10-16 17:14 | ED ---
SOB HPI - General Chief Complaint: Shortness of Breath Stated Complaint: SOB Time Seen by Provider: 10/16/24 15:40 Source: EMS Mode of arrival: EMS Limitations: no limitations - History of Present Illness Initial Comments: 59-year-old male who resides at an [facility] home presented to [facility] for shortness of breath. Patient was hospitalized at our facility for 12 days and released 2 days ago. He was diagnosed with pneumonia and COVID. Patient has had continued shortness of breath since discharge which has been worsening. Evaluation at [facility] included laboratory studies and a CT of the chest. CT performed which demonstrated no pulmonary embolism. Posterior basilar left chest fluid greater than gaseous filled collection measuring 6.1 x 9.5 x 11.3 cm highly suspicious for infectious over sterile collection such as empyema. Moderate adjacent consolidation favoring compressive atelectasis. Patchy ill-defined and more consolidative groundglass glass airspace disease throughout much of the bilateral lower and posterior dependent upper lobes. Patient was administered Rocephin and Flagyl. Additionally given 10 units of in sulin due to his elevated blood glucose of 462. Patient was then transferred here for evaluation. He cannot provide much history. History is obtained from transfer packet. Appears the patient did have empyema and had a chest tube however he pulled this out during his last hospitalization. - Related Data Home Medications Medication Instructions Recorded Confirmed Aspirin EC [Ecotrin Low Dose] 81 mg PO DAILY 11/06/23 10/16/24 Metoprolol Tartrate [Lopressor] 50 mg PO BID 11/06/23 10/16/24 [place]-3 Acid Ethyl Esters [Lovaza] 1 gm PO BID 06/19/24 10/16/24 Divalproex ER [Depakote ER] 500 mg PO TID 09/26/24 10/16/24 amantadine HCL [Symmetrel] 100 mg PO DAILY 09/26/24 10/16/24 traZODone HCL [Desyrel] 50 mg PO HS PRN 09/26/24 10/16/24 Loratadine [Claritin] 10 mg PO DAILY 10/16/24 10/16/24 QUEtiapine FUMARATE [SEROquel] 600 mg PO HS 10/16/24 10/16/24 dilTIAZem HCL [Cardizem CD] 120 mg PO DAILY 10/16/24 10/16/24 dilTIAZem HCL [Cardizem CD] 240 mg PO DAILY 10/16/24 10/16/24 fluPHENAZine HCl 10 mg PO DAILY 10/16/24 10/16/24 guaiFENesin-DM 600/30MG [Mucinex 2 tab PO Q12HR PRN 10/16/24 10/16/24 Dm] hydrOXYzine HCL [Atarax] 25 mg PO DAILY PRN 10/16/24 10/16/24 Previous Rx's Medication Instructions Recorded Folic Acid 1 mg PO DAILY #30 tab 11/08/23 Albuterol Inhaler [Ventolin Hfa 2 puff INHALATION RT-Q2H PRN #1 10/14/24 Inhaler] each Amoxic-Pot Clav 875-125Mg 1 tab PO BID #6 tab 10/14/24 [Augmentin 875-125] Fluconazole [Diflucan] 100 mg PO DAILY #7 tab 10/14/24 Fluticasone Nasal [place] [Flonase 2 spray EA NOSTRIL DAILY #1 ml 10/14/24 Nasal [place]] Insulin Regular, Human [NovoLIN R 15 units SQ AC-BID #0 10/14/24 Flexpen] Naproxen [Naprosyn] 250 mg PO Q8HR PRN #30 tab 10/14/24 OLANZapine [ZyPREXA] 5 mg PO TID PRN #30 tab 10/14/24 Tiotropium 2.5 Mcg/Puff [Spiriva 2 puff INHALATION RT-DAILY #1 each 10/14/24 Respimat 2.5 Mcg] Allergies Allergy/AdvReac Type Severity Reaction Status Date / Time amlodipine Allergy Unknown Verified 10/16/24 17:28 aripiprazole [From Abilify] Allergy Unknown Verified 10/16/24 17:28 atorvastatin [From Lipitor] Allergy Unknown Verified 10/16/24 17:28 benztropine [From Cogentin] Allergy Unknown Verified 10/16/24 17:28 fluphenazine [From Prolixin] Allergy "passes Verified 10/16/24 17:28 out" gabapentin Allergy Unknown Verified 10/16/24 17:28 haloperidol [From Haldol] Allergy Angry Verified 10/16/24 17:28 metformin Allergy Unknown Verified 10/16/24 17:28 olanzapine [From Zyprexa] Allergy Unknown Verified 10/16/24 17:28 paliperidone [From Invega] Allergy Unknown Verified 10/16/24 17:28 ziprasidone [From Geodon] Allergy Unknown Verified 10/16/24 17:28 chlorpromazine AdvReac Angry Verified 10/16/24 17:28 [From Thorazine] thiothixene AdvReac Angry Verified 10/16/24 17:28 ABILIFY INJECTION Allergy Unknown Uncoded 10/16/24 15:43 INVEGA INJECTION Allergy Unknown Uncoded 10/16/24 15:43 Review of Systems ROS Statement: Those systems with pertinent positive or pertinent negative responses have been documented in the HPI. ROS Other: All systems not noted in ROS Statement are negative. Past Medical History Past Medical History: Asthma, COPD, CVA/TIA, Diabetes Mellitus, Hypertension, Pneumonia, Thyroid Disorder Additional Past Medical History / Comment(s): Tremors History of Any Multi-Drug Resistant Organisms: None Reported Past Surgical History: Cholecystectomy Additional Past Surgical History / Comment(s): LEFT EYE Past Anesthesia/Blood Transfusion Reactions: No Reported Reaction Past Psychological History: Anxiety, Bipolar, Depression, Schizoaffective Disorder Smoking Status: Current every day smoker Past Alcohol Use History: None Reported Past Drug Use History: None Reported - Past Family History Father Family Medical History: Unable to Obtain General Exam Limitations: physical limitation General appearance: alert, in no apparent distress Head exam: Present: atraumatic, normocephalic, normal inspection Eye exam: Present: normal appearance, PERRL, EOMI. Absent: scleral icterus, conjunctival injection, periorbital swelling ENT exam: Present: normal exam, mucous membranes moist Neck exam: Present: normal inspection. Absent: tenderness, meningismus, lymphadenopathy Respiratory exam: Present: decreased breath sounds (left side). Absent: respiratory distress Cardiovascular Exam: Present: regular rate, normal rhythm, normal heart sounds. Absent: systolic murmur, diastolic murmur, rubs, gallop, clicks GI/Abdominal exam: Present: soft, normal bowel sounds. Absent: distended, tenderness, guarding, rebound, rigid Extremities exam: Present: normal inspection, full ROM, normal capillary refill. Absent: tenderness, pedal edema, joint swelling, calf tenderness Neurological exam: Present: alert Psychiatric exam: Present: agitated Skin exam: Present: warm, dry, intact, normal color. Absent: rash Course Vital Signs 10/16/24 10/16/24 10/16/24 15:37 15:44 17:20 Temperature 98.9 F 99.4 F Pulse Rate 63 71 Respiratory 20 18 20 Rate Blood Pressure 134/99 133/63 O2 Sat by Pulse 96 98 Oximetry 10/16/24 10/16/24 10/16/24 18:09 18:10 18:15 Temperature 98.8 F Pulse Rate 72 75 74 Respiratory 18 Rate Blood Pressure 146/67 O2 Sat by Pulse 98 Oximetry Medical Decision Making - Medical Decision Making Was pt. sent in by a medical professional or institution (, PA, RISK CONTROL SPECIALIST, urgent care, hospital, or senior living...) When possible be specific @ -[facility] Did you speak to anyone other than the patient for history (EMS, parent, family, police, friend...)? What history was obtained from this source @ -Transferring physician Dr. Sheth Did you review nursing and triage notes (agree or disagree)? Why? @ -I reviewed and agree with nursing and triage notes Were old charts reviewed (outside hosp., previous admission, EMS record, old EKG, old radiological studies, urgent care reports/EKG's, senior living records)? Report findings @ -I reviewed the transfer report from [facility] including the CT that was performed today Differential Diagnosis (chest pain, altered mental status, abdominal pain women, abdominal pain men, vaginal bleeding, weakness, fever, dyspnea, syncope, headache, dizziness, GI bleed, back pain, seizure, CVA, palpatations, mental health, musculoskeletal)? @ -Differential Dyspnea: Coronary syndrome, arrhythmia, tamponade, asthma, COPD, pulmonary embolism, pneumonia, pneumothorax, pulmonary effusion, anaphylaxis, diabetic ketoacidosis, flailed chest, pulmonary contusion, diaphragmatic rupture, anemia, neuromuscular, this is not meant to be an all-inclusive list. EKG interpreted by me (3pts min.). @ -yes and demonstrates sinus rhythm with rate of 66. RI interval 152. QRS 101. QTc of 397. No acute ST segment elevations or depressions X-rays interpreted by me (1pt min.). @ -Yes which demonstrates air-fluid level along the spine CT interpreted by me (1pt min.). @ -None done U/S interpreted by me (1pt. min.). @ -None done What testing was considered but not performed or refused? (CT, X-rays, U/S, labs)? Why? @ -None What meds were considered but not given or refused? Why? @ -None Did you discuss the management of the patient with other professionals (p thiagofessjames i.e. , PA, RISK CONTROL SPECIALIST, lab, RT, psych nurse, social media manager, frame tender, teacher, bank compliance officer, case assistant)? Give summary @ -Spoke with Dr. Morin for admission Was smoking cessation discussed for >3mins.? @ -No Was critical care preformed (if so, how long)? @ -No Were there social determinants of health that impacted care today? How? (Homelessness, low income, unemployed, alcoholism, drug addiction, transportation, low edu. Level, literacy, decrease access to med. care, fpc, rehab)? @ -Patient resides in an AF home Was there de-escalation of care discussed even if they declined (Discuss DNR or withdrawal of care, Hospice)? DNR status @ -No What co-morbidities impacted this encounter? (DM, HTN, Smoking, COPD, CAD, Cancer, CVA, ARF, Chemo, Hep., AIDS, mental health diagnosis, sleep apnea, morbid obesity)? @ -Schizophrenia Was patient admitted / discharged? Hospital course, mention meds given and route, prescriptions, significant lab abnormalities, going to OR and other p ertinent info. @ -Upon arrival patient seen and evaluated in bed 18. Thorough history and physical exam was performed. I did review the transfer packet. X-ray was performed to have comparison from previous. Patient has already received antibiotics. I did continue him on Rocephin and Flagyl. Patient will be admitted. Discussed the case with Dr. Morin. Pulmonology and CArdiothoracics will be placed on consult. Undiagnosed new problem with uncertain prognosis? @ -No Drug Therapy requiring intensive monitoring for toxicity (Heparin, Nitro, Insulin, Cardizem)? @ -No Were any procedures done? @ -No Diagnosis/symptom? @ -Acute respiratory insufficiency, empyema, recent COVID and pneumonia diagnosis Acute, or Chronic, or Acute on Chronic? @ -Acute Uncomplicated (without systemic symptoms) or Complicated (systemic symptoms)? @ -Complicated Side effects of treatment? @ -No Exacerbation, Progression, or Severe Exacerbation? @ -No Poses a threat to life or bodily function? How? (Chest pain, USA, MA, pneumonia, PE, COPD, DKA, ARF, appy, cholecystitis, CVA, Diverticulitis, Homicidal, Suicidal, threat to staff... and all critical care pts) @ -No Disposition Clinical Impression: Respiratory insufficiency, Empyema of lung Disposition: ADMITTED IP TO [facility] Condition: Stable Is patient prescribed a controlled substance at d/c from ED?: No Time of Disposition: 17:17 Decision to Admit Reason: Admit from EC Decision Date: 10/16/24 Decision Time: 17:17
[2024-10-16] MEDS ORDERED: NALOXONE 0.4 MG/ML 1 ML VIAL IV PRN (17:19)
[2024-10-16] MEDS: IPRATROPIUM-ALBUTEROL 3 ML NEB INHALATION SCH (18:07)
[2024-10-16] MEDS: ZINC OXIDE PASTE (Z-GUARD) 1 APPLIC TOPICAL PRN (18:19)
--- NOTE | 2024-10-16 18:36 | XR ---
EXAMINATION TYPE: XR chest 2V DATE OF EXAM: 10/16/2024 6:31 PM COMPARISON: CT and plain film CLINICAL INDICATION: Male, 59 years old with history of empyema; [facility] TECHNIQUE: XR chest 2V Frontal and lateral views of the chest. FINDINGS: Lungs/Pleura: There is no evidence of pleural effusion, focal consolidation, or pneumothorax. Air-fl uid level projects over the posterior spine on lateral view. Pulmonary vascularity: Unremarkable. Heart/mediastinum: Cardiomediastinal silhouette is unremarkable. Musculoskeletal: No acute osseous pathology. IMPRESSION: Air-fluid level over the posterior spine lateral view possibly secondary to prior chest tube seen on prior CT. Chest tube if present is not well appreciated due to patient body habitus and overlapping s tructures. [facility], , 10/16/2024 6:34 PM
[2024-10-16] MEDS: SODIUM CHLORIDE 0.65% NASAL SPRAY 44 ML BTL NASAL PRN (18:54)
[2024-10-16] MEDS ORDERED: hydrOXYzine HCL 25 MG TAB PO PRN (21:12)
[2024-10-16] MEDS ORDERED: guaiFENesin-DM 600/30MG 1 EACH TAB.ER.12H PO PRN (21:12)
[2024-10-16] MEDS: METOPROLOL TARTRATE 50 MG TAB PO SCH (22:09)
[2024-10-16] MEDS: QUEtiapine 400 MG TAB PO SCH (22:10)
[2024-10-16] MEDS: DIVALPROEX ER 500 MG TAB.ER.24H PO SCH (22:10)
[2024-10-16] MEDS: metroNIDAZOLE-NS PMX 500 MG in SALINE 1 100ML.BAG IVPB SCH (22:12)
[2024-10-16] MEDS: Omega-3 Acid Ethyl Esters [Lovaza] 1 GM Capsule PO SCH (22:17)
[2024-10-16 23:26] LABS: Glucose,Whole Blood 393 mg/dL (70-110)
[2024-10-16] MEDS ORDERED: INSULIN REGULAR 100 UNIT/ML VIAL (IM/SQ) SQ ONE (23:33)
[2024-10-16] MEDS: INSULIN REGULAR 100 UNIT/ML VIAL (IM/SQ) SQ ONE (23:41)
--- NOTE | 2024-10-17 02:26 | P.CNPUL ---
History of Present Illness Consult date: 10/17/24 Requesting physician: Yenifer Boothe Reason for consult: pleural effusion Chief complaint: Transfer from [facility] for empyema History of present illness: Patient is a 59-year-old male with past medical history significant for pneumonia, diabetes mellitus, atrial fibrillation, CVA/TIA, hypertension, schizoaffective disorder, and resides at an [facility] home.. He had a recent hospitalization September 26 through October 14 for a loculated possibly parapneumonic left-sided pleural effusion, patient did have a pigtail catheter for placed thrombolytics September 30 which was inadvertently removed on October 09. This was an exudative effusion based on lights criteria. Microbiology was negative. Cytology also unremarkable. Patient did receive IV antibiotics while inpatient, and was discharged on p.o. Augmentin to be completed on outpatient basis. Previous follow-up chest x-ray showing only trace left-sided pleural effusion with atelectasis versus consolidative changes in the left lung base. Patient was eventually discharged back to his [facility] home. Patient transferred from [facility] yesterday evening. Apparently, has had progressively worsening shortness of breath over the last week. Chest CT at outside facility did not show any pulmonary embolism. There was posterior basilar left chest loculated fluid collection, with air-fluid level, measuring 6.1 x 9.5 x 11.3 cm. Suspicious for empyema. There is a moderate adjacent consolidation or atelectasis. Patchy groundglass opacities throughout much of the bilateral lower and posterior dependent upper lobes. Patchy consolidation involving the anterior lateral peripheral lingula as well as left base. Workup so far upon transfer includes a chest x-ray showing above-mentioned fluid collection with air-fluid level over the posterior spine on lateral view. Awaiting follow-up labs. Patient is currently being evaluated emergency department. He is on room air. Not in any respiratory distress. He is alert a nd has a flat affect. Responses to interview are short and does not volunteer information. He denies any shortness of breath, cough, chest pain, back pain, fever/chills. Patient was started on antibiotics in the ED. Current most recent vital signs: Temperature 98.3 F, heart rate 67 bpm, blood pressure 144/68 mmHg, nontachypneic, SpO2 is 99% on room air. Review of Systems Constitutional: Denies chills, Denies fatigue, Denies fever, Denies night sweats, Denies poor appetite, Denies weight gain, Denies weight loss Ears, nose, mouth and throat: Denies headache, Denies nasal congestion, Denies nasal discharge, Denies post-nasal drip, Denies sinus pain, Denies sinus pressure, Denies sore throat Cardiovascular: Denies chest pain, Denies dyspnea on exertion, Denies leg edema, Denies orthopnea, Denies palpitations, Denies paroxysmal nocturnal dyspnea, Denies syncope Respiratory: Denies congestion, Denies cough, Denies cough with sputum, Denies dyspnea, Denies excessive sputum, Denies hemoptysis, Denies home oxygen, Denies pain on inspiration, Denies pleurisy Gastrointestinal: Denies abdominal pain, Denies change in bowel habits, Denies diarrhea, Denies nausea, Denies vomiting Genitourinary: Denies dysuria Musculoskeletal: Denies limitation of motion Integumentary: Denies rash Neurological: Denies seizures, Denies syncope Psychiatric: Reports depression, Reports irritability, Denies anxiety, Denies suicidal ideation Past Medical History Past Medical History: Asthma, COPD, CVA/TIA, Diabetes Mellitus, Hypertension, Pneumonia, Thyroid Disorder Additional Past Medical History / Comment(s): Tremors History of Any Multi-Drug Resistant Organisms: None Reported Past Surgical History: Cholecystectomy Additional Past Surgical History / Comment(s): LEFT EYE Past Anesthesia/Blood Transfusion Reactions: No Reported Reaction Past Psychological History: Anxiety, Bipolar, Depression, Schizoaffective Disorder Smoking Status: Current every day smoker Past Alcohol Use History: None Reported Past Drug Use History: None Reported - Past Family History Father Family Medical History: Unable to Obtain Medications and Allergies Home Medications Medication Instructions Recorded Confirmed Type Aspirin EC [Ecotrin Low Dose] 81 mg PO DAILY 11/06/23 10/16/24 History Metoprolol Tartrate [Lopressor] 50 mg PO BID 11/06/23 10/16/24 History Folic Acid 1 mg PO DAILY #30 tab 11/08/23 10/16/24 Rx [place]-3 Acid Ethyl Esters [Lovaza] 1 gm PO BID 06/19/24 10/16/24 History Divalproex ER [Depakote ER] 500 mg PO TID 09/26/24 10/16/24 History amantadine HCL [Symmetrel] 100 mg PO DAILY 09/26/24 10/16/24 History traZODone HCL [Desyrel] 50 mg PO HS PRN 09/26/24 10/16/24 History Albuterol Inhaler [Ventolin Hfa 2 puff INHALATION RT-Q2H PRN #1 10/14/2410/02 Rx Inhaler] each Amoxic-Pot Clav 875-125Mg 1 tab PO BID #6 tab 10/14/24 10/16/24 Rx [Augmentin 875-125] Fluconazole [Diflucan] 100 mg PO DAILY #7 tab 10/14/24 10/16/24 Rx Fluticasone Nasal [place] [Flonase 2 spray EA NOSTRIL DAILY #1 ml 10/14/24 10/16/24 Rx Nasal [place]] Insulin Regular, Human [NovoLIN R 15 units SQ AC-BID #0 10/14/24 10/16/24 Rx Flexpen] Naproxen [Naprosyn] 250 mg PO Q8HR PRN #30 tab 10/14/24 10/16/24 Rx OLANZapine [ZyPREXA] 5 mg PO TID PRN #30 tab 10/14/24 10/16/24 Rx Tiotropium 2.5 Mcg/Puff [Spiriva 2 puff INHALATION RT-DAILY #1 each 10/14/24 10/16/24 Rx Respimat 2.5 Mcg] Loratadine [Claritin] 10 mg PO DAILY 10/16/24 10/16/24 History QUEtiapine FUMARATE [SEROquel] 600 mg PO HS 10/16/24 10/16/24 History dilTIAZem HCL [Cardizem CD] 120 mg PO DAILY 10/16/24 10/16/24 History dilTIAZem HCL [Cardizem CD] 240 mg PO DAILY 10/16/24 10/16/24 History fluPHENAZine HCl 10 mg PO DAILY 10/16/24 10/16/24 History guaiFENesin-DM 600/30MG [Mucinex 2 tab PO Q12HR PRN 10/16/24 10/16/24 History Dm] hydrOXYzine HCL [Atarax] 25 mg PO DAILY PRN 10/16/24 10/16/24 History Allergies Allergy/AdvReac Type Severity Reaction Status Date / Time amlodipine Allergy Unknown Verified 10/16/24 17:28 aripiprazole [From Abilify] Allergy Unknown Verified 10/16/24 17:28 atorvastatin [From Lipitor] Allergy Unknown Verified 10/16/24 17:28 benztropine [From Cogentin] Allergy Unknown Verified 10/16/24 17:28 fluphenazine [From Prolixin] Allergy "passes Verified 10/16/24 17:28 out" gabapentin Allergy Unknown Verified 10/16/24 17:28 haloperidol [From Haldol] Allergy Angry Verified 10/16/24 17:28 metformin Allergy Unknown Verified 10/16/24 17:28 olanzapine [From Zyprexa] Allergy Unknown Verified 10/16/24 17:28 paliperidone [From Invega] Allergy Unknown Verified 10/16/24 17:28 ziprasidone [From Geodon] Allergy Unknown Verified 10/16/24 17:28 chlorpromazine AdvReac Angry Verified 10/16/24 17:28 [From Thorazine] thiothixene AdvReac Angry Verified 10/16/24 17:28 ABILIFY INJECTION Allergy Unknown Uncoded 10/16/24 15:43 INVEGA INJECTION Allergy Unknown Uncoded 10/16/24 15:43 Physical Exam Vitals: Vital Signs Temp Pulse Resp BP Pulse Ox 10/16/24 23:51 67 18 144/68 99 10/16/24 22:00 98.3 F 72 18 144/68 98 10/16/24 20:00 68 18 147/61 99 10/16/24 18:15 74 10/16/24 18:10 98.8 F 75 18 146/67 98 10/16/24 18:09 72 10/16/24 17:20 99.4 F 71 20 133/63 98 10/16/24 15:44 18 10/16/24 15:37 98.9 F 63 20 134/99 96 Intake and Output 10/16/24 10/16/24 10/17/24 14:59 22:59 06:59 Output Total 550 Balance -550 Output: Urine 550 Other: # Voids 1 Weight 90.718 kg GENERAL EXAM: Alert, 59-year-old white male, with flat affect, not in any distress. HEAD: Normocephalic and atraumatic EYES: Normal reaction of pupils, equal size. NOSE: Clear with pink turbinates. THROAT: No erythema or exudates. NECK: No masses, no JVD. CHEST: No chest wall deformity. LUNGS: Equal air entry with posterior left chest inspiratory crackles, on room air. No conversational dyspnea or accessory muscle use.. CVS: S1 and S2 normal with no audible murmur, regular rhythm. No extra heart celsa nds ABDOMEN: No hepatosplenomegaly, active bowel sounds, no guarding or rigidity. SPINE: No scoliosis or deformity SKIN: No rashes CENTRAL NERVOUS SYSTEM: No focal deficits, tone is normal in all 4 extremities. EXTREMITIES: There is no peripheral edema, clubbing, or cyanosis. Peripheral pulses are intact. Results - Laboratory Findings Abnormal lab findings: Abnormal Labs 10/16/24 23:24 POC Glucose (mg/dL) 393 H - Diagnostic Findings Chest x-ray: image reviewed Assessment and Plan Assessment: Acute dyspnea, CT chest done at outside facility showing posterior basilar left chest fluid collection, loculated, with air-fluid level, measuring 6.1 x 9.5 x 11.3 cm. Suspicious for empyema. There is a adjacent consolidation or atelectasis. Patchy groundglass opacities throughout much of the bilateral lower and posterior dependent upper lobes. Patchy consolidation involving the anterior lateral peripheral lingula, as well as, left base. Patient did previously have left chest pigtail catheter. Complicated, loculated parapneumonic left-sided effusion, status post pigtail catheter placement on 09/30/2024, inadvertently removed on 10/09/2023. Exudative effusion based on Lights criteria and fluid analysis. Microbiology was negative. Cytology also unremarkable. Patient did receive IV antibiotics while inpatient, and was discharged with PO antibiotics to be completed outpatient. Ultimately, discharged back to [facility] home on October 14 History of COVID-19 infection History of atrial fibrillation, currently in normal sinus mechanism Diabetes mellitus, type II, with hyperglycemia History of mild intermittent chronic bronchial asthma. History of CVA. Hypertension. Gastroesophageal reflux disease. History of schizoaffective disorder/bipolar disorder/anxiety/depression [facility] resident. Plan: Patient currently on room air oxygen Empiric antibiotics also started in the form of Rocephin and Flagyl Awaiting lab work Possible candidate for repeat pigtail catheter insertion with thrombolytics or surgical decortication. Cardiothoracic surgery consulted in the ED Case will be discussed with Dr. Tariq, further recommendations to follow. I have personally seen and examined the patient, performed the documentation and the assessment and plan as written. Number of minutes spent on the visit:20 Time with Patient: Greater than 30
[2024-10-17 03:06] LABS: HGB 12.1 gm/dL (13.0-17.5); MCH 31.5 pg (25.0-35.0); MCHC 33.5 g/dL (31.0-37.0); MCV 93.8 fL (80.0-100.0); Mean Platelet Volume 7.3; Platelet Count 219 k/uL (150-450); RBC 3.84 m/uL (4.30-5.90); RDW 14.7 % (11.5-15.5); WBC 4.2 k/uL (3.8-10.6)
[2024-10-17 03:11] LABS: ALT 12 U/L (4-49); AST 16 U/L (17-59); African American GFR (CKD) >90 (>60 ml/min/1.73 sqM); Albumin 2.9 g/dL (3.5-5.0); Albumin/Globulin Ratio 0.7; Alkaline Phosphatase 112 U/L (38-126); Anion Gap 9 mmol/L; Blood Urea Nitrogen 17 mg/dL (9-20); Calcium 8.7 mg/dL (8.4-10.2); Carbon Dioxide 27 mmol/L (22-30); Chloride 96 mmol/L (98-107); Globulin 4.4 g/dL; Glucose 344 mg/dL (74-99); Non-African American GFR(CKD) >90 (>60 ml/min/1.73 sqM); Potassium 4.8 mmol/L (3.5-5.1); Sodium 132 mmol/L (137-145); Total Bilirubin 0.4 mg/dL (0.2-1.3); Total Protein 7.3 g/dL (6.3-8.2)
[2024-10-17 03:45] LABS: Lymphocytes # (M) 2.35 k/uL (1.0-4.8); Metamyelocytes # (M) 0.04 k/uL (0); Metamyelocytes % 1 %; Monocytes # (M) 1.68 k/uL (0-1.0); Nucleated Red Blood Cells 0 /100 WBC (0-0); Total Cells Counted 100
[2024-10-17 03:47] LABS: Rouleaux Present
[2024-10-17 06:27] LABS: Glucose,Whole Blood 238 mg/dL (70-110)
[2024-10-17] MEDS: INSULIN REGULAR 100 UNIT/ML VIAL (IM/SQ) SQ SCH (07:00)
[2024-10-17] MEDS: TIOTROPIUM 2.5 MCG INHALER INHALATION SCH (07:59)
[2024-10-17] MEDS: IPRATROPIUM-ALBUTEROL 3 ML NEB INHALATION SCH (07:59)
[2024-10-17] MEDS: FOLIC ACID 1 MG TAB PO SCH (08:07)
[2024-10-17] MEDS: ASPIRIN 81 MG PO SCH (08:07)
[2024-10-17] MEDS: LORATADINE 10 MG TAB PO SCH (08:07)
[2024-10-17] MEDS: DILTIAZEM CD 120 MG CAP.ER.24H PO SCH (08:08)
[2024-10-17] MEDS: DILTIAZEM CD 240 MG CAP.ER.24H PO SCH (08:08)
[2024-10-17] MEDS: OLANZapine 5 MG TAB PO PRN (08:17)
[2024-10-17 08:23] LABS: Band Neutrophils % 3 %
[2024-10-17] MEDS: FLUTICASONE NASAL 50MCG/SPRAY 16GM BTL EA NOSTRIL SCH (08:24)
[2024-10-17 08:34] LABS: Neutrophils % (M) 0 %
--- NOTE | 2024-10-17 08:42 | P.GSCN ---
History of Present Illness Consult date: 10/17/24 Reason for Consult: Known to us, possible empyema Requesting physician: Yenifer Boothe History of present illness: This is a 59-year-old gentleman who follows outpatient with Dr. Vazquez for primary care, he lives in an [facility] home. He has a previous medical history of asthma, COPD, COVID, CVA, diabetes mellitus type 2, hypertension, paroxysmal atrial fibrillation not on anticoagulation, thyroid disorder, GERD, schizoa ffective disorder. The patient is a poor historian and most of the history was obtained from the chart and his last admission when we saw him. He was recently hospitalized here at [facility] from September 26 through October 14 for pneumonia. At that time he had a loculated left-sided effusion and a pigtail catheter was placed with 4 doses of lytics resulting in significant drainage. Unfortunately before 1/5 dose could be delivered the patient inadvertently pulled the pigtail out. Repeat chest x-ray and CAT scan were completed, the patient was felt to be improving and the pigtail was not replaced. He was discharged back to his [facility] home on October 14 on oral Augmentin. Apparently he has continued to complain of progressive shortness of breath and was transferred to [facility] yesterday. Chest CTA was completed demonstrating no pulmonary embolism, there was a well capsulated fluid collection involving the posterior and basilar portions of the left lower lobe measuring 9.5 x 6.1 x 11.3 cm with moderate anterior consolidation and compressive atelectasis. The patien t was transferred to [facility] for further evaluation and treatment. He has remained afebrile, remains on room air with oxygen saturation in the mid to high 90s, WBC is normal at 4.2. He does have reportedly critical low neutrophils with 3% bandemia and hematology was placed on consult. Chest x-ray completed here demonstrates air-fluid level over the posterior spine lateral view. He was admitted and placed on IV Rocephin and Flagyl with consultation placed to pulmonology as well as cardiothoracic surgery for treatment of empyema. Review of Systems Review of systems was completed and was negative except as noted - Respiratory Reports cough, Reports dyspnea - Genitourinary Reports incontinence Past Medical History Past Medical History: Asthma, COPD, CVA/TIA, Diabetes Mellitus, Hypertension, Pneumonia, Thyroid Disorder Additional Past Medical History / Comment(s): Tremors History of Any Multi-Drug Resistant Organisms: None Reported Past Surgical History: Cholecystectomy Additional Past Surgical History / Comment(s): LEFT EYE Past Anesthesia/Blood Transfusion Reactions: No Reported Reaction Past Psychological History: Anxiety, Bipolar, Depression, Schizoaffective Disorder Smoking Status: Current every day smoker Past Alcohol Use History: None Reported Past Drug Use History: None Reported Additional Drug Use History / Comment(s): pt is a very poor historian - Past Family History Father Family Medical History: Unable to Obtain Medications and Allergies Home Medications Medication Instructions Recorded Confirmed Type Aspirin EC [Ecotrin Low Dose] 81 mg PO DAILY 11/06/23 10/16/24 History Metoprolol Tartrate [Lopressor] 50 mg PO BID 11/06/23 10/16/24 History Folic Acid 1 mg PO DAILY #30 tab 11/08/23 10/16/24 Rx [place]-3 Acid Ethyl Esters [Lovaza] 1 gm PO BID 06/19/24 10/16/24 History Divalproex ER [Depakote ER] 500 mg PO TID 09/26/24 10/16/24 History amantadine HCL [Symmetrel] 100 mg PO DAILY 09/26/24 10/16/24 History traZODone HCL [Desyrel] 50 mg PO HS PRN 09/26/24 10/16/24 History Albuterol Inhaler [Ventolin Hfa 2 puff INHALATION RT-Q2H PRN #1 10/14/24 10/16/24 Rx Inhaler] each Amoxic-Pot Clav 875-125Mg 1 tab PO BID #6 tab 10/14/24 10/16/24 Rx [Augmentin 875-125] Fluconazole [Diflucan] 100 mg PO DAILY #7 tab 10/14/24 10/16/24 Rx Fluticasone Nasal [place] [Flonase 2 spray EA NOSTRIL DAILY #1 ml 10/14/24 10/16/24 Rx Nasal [place]] Insulin Regular, Human [NovoLIN R 15 units SQ AC-BID #0 10/14/24 10/16/24 Rx Flexpen] Naproxen [Naprosyn] 250 mg PO Q8HR PRN #30 tab 10/14/24 10/16/24 Rx OLANZapine [ZyPREXA] 5 mg PO TID PRN #30 tab 10/14/24 10/16/24 Rx Tiotropium 2.5 Mcg/Puff [Spiriva 2 puff INHALATION RT-DAILY #1 each 10/14/24 10/16/24 Rx Respimat 2.5 Mcg] Loratadine [Claritin] 10 mg PO DAILY 10/16/24 10/16/24 History QUEtiapine FUMARATE [SEROquel] 600 mg PO HS 10/16/24 10/16/24 History dilTIAZem HCL [Cardizem CD] 120 mg PO DAILY 10/16/24 10/16/24 History dilTIAZem HCL [Cardizem CD] 240 mg PO DAILY 10/16/24 10/16/24 History fluPHENAZine HCl 10 mg PO DAILY 10/16/24 10/16/24 History guaiFENesin-DM 600/30MG [Mucinex 2 tab PO Q12HR PRN 10/16/24 10/16/24 History Dm] hydrOXYzine HCL [Atarax] 25 mg PO DAILY PRN 10/16/24 10/16/24 History Allergies Allergy/AdvReac Type Severity Reaction Status Date / Time amlodipine Allergy Unknown Verified 10/16/24 17:28 aripiprazole [From Abilify] Allergy Unknown Verified 10/16/24 17:28 atorvastatin [From Lipitor] Allergy Unknown Verified 10/16/24 17:28 benztropine [From Cogentin] Allergy Unknown Verified 10/16/24 17:28 fluphenazine [From Prolixin] Allergy "passes Verified 10/16/24 17:28 out" gabapentin Allergy Unknown Verified 10/16/24 17:28 haloperidol [From Haldol] Allergy Angry Verified 10/16/24 17:28 metformin Allergy Unknown Verified 10/16/24 17:28 olanzapine [From Zyprexa] Allergy Unknown Verified 10/16/24 17:28 paliperidone [From Invega] Allergy Unknown Verified 10/16/24 17:28 ziprasidone [From Geodon] Allergy Unknown Verified 10/16/24 17:28 chlorpromazine AdvReac Angry Verified 10/16/24 17:28 [From Thorazine] thiothixene AdvReac Angry Verified 10/16/24 17:28 ABILIFY INJECTION Allergy Unknown Uncoded 10/16/24 15:43 INVEGA INJECTION Allergy Unknown Uncoded 10/16/24 15:43 Surgical - Exam Vital Signs Temp Pulse Resp BP Pulse Ox 98.9 F 63 20 134/99 96 10/16/24 15:37 10/16/24 15:37 10/16/24 15:37 10/16/24 15:37 10/16/24 15:37 CONSTITUTIONAL: Awake and alert, appears somewhat comfortable, well-developed, well-nourished, no pain, no acute distress EYES: Pupils equal, round, reactive to light, normal ocular movement ENT: Moist mucous membranes without oral lesions present NECK: No masses, no bruits, trachea midline RESPIRATORY: Lungs sounds diminished bilaterally with fine crackles heard in the left base. Respirations even, nonlabored. Currently on room air with oxygen saturation 95%. Strong cough. No chest wall deformities. No clubbing or cyanosis present CARDIOVASCULAR: S1, S2 present. Regular rate and rhythm, sinus rhythm on telemetry. Palpable peripheral pulses bilaterally. No edema present. No calf pain or tenderness noted GASTROINTESTINAL: Abdomen soft, nontender, nondistended without masses or organomegaly noted. There is no rebound or guarding present. Active bowel sounds present 4 quadrants. GENITOURINARY: Currently wearing adult brief INTEGUMENTARY: Skin is warm and dry NEUROLOGIC: Cranial nerves II through XII intact MUSKULOSKELETAL: Able to move all extremities, strength equal bilaterally, normal posture PSYCHIATRIC: Alert and oriented to person place and time, flat affect Results - Labs 10/17/24 02:38 10/17/24 02:38 Abnormal Lab Results - Last 24 Hours (Table) 10/16/24 10/17/24 10/17/24 Range/Units 23:24 02:38 02:38 RBC 3.84 L (4.30-5.90) m/uL Hgb 12.1 L (13.0-17.5) gm/dL Hct 36.0 L (39.0-53.0) % Monocytes # (Manual) 1.68 H (0-1.0) k/uL Metamyelocytes # (Man) 0.04 H (0) k/uL Sodium 132 L (137-145) mmol/L Chloride 96 L (98-107) mmol/L Creatinine 0.59 L (0.66-1.25) mg/dL Glucose 344 H (74-99) mg/dL POC Glucose (mg/dL) 393 H (70-110) mg/dL AST 16 L (17-59) U/L Albumin 2.9 L (3.5-5.0) g/dL 10/17/24 Range/Units 06:24 RBC (4.30-5.90) m/uL Hgb (13.0-17.5) gm/dL Hct (39.0-53.0) % Monocytes # (Manual) (0-1.0) k/uL Metamyelocytes # (Man) (0) k/uL Sodium (137-145) mmol/L Chloride (98-107) mmol/L Creatinine (0.66-1.25) mg/dL Glucose (74-99) mg/dL POC Glucose (mg/dL) 238 H (70-110) mg/dL AST (17-59) U/L Albumin (3.5-5.0) g/dL Diabetes panel 10/17/24 Range/Units 02:38 Sodium 132 L (137-145) mmol/L Potassium 4.8 (3.5-5.1) mmol/L Chloride 96 L (98-107) mmol/L Carbon Dioxide 27 (22-30) mmol/L BUN 17 (9-20) mg/dL Creatinine 0.59 L (0.66-1.25) mg/dL Glucose 344 H (74-99) mg/dL Calcium 8.7 (8.4-10.2) mg/dL AST 16 L (17-59) U/L ALT 12 (4-49) U/L Alkaline Phosphatase 112 (38-126) U/L Total Protein 7.3 (6.3-8.2) g/dL Albumin 2.9 L (3.5-5.0) g/dL Calcium panel 10/17/24 Range/Units 02:38 Calcium 8.7 (8.4-10.2) mg/dL Albumin 2.9 L (3.5-5.0) g/dL Pituitary panel 10/17/24 Range/Units 02:38 Sodium 132 L (137-145) mmol/L Potassium 4.8 (3.5-5.1) mmol/L Chloride 96 L (98-107) mmol/L Carbon Dioxide 27 (22-30) mmol/L BUN 17 (9-20) mg/dL Creatinine 0.59 L (0.66-1.25) mg/dL Glucose 344 H (74-99) mg/dL Calcium 8.7 (8.4-10.2) mg/dL Adrenal panel 10/17/24 Range/Units 02:38 Sodium 132 L (137-145) mmol/L Potassium 4.8 (3.5-5.1) mmol/L Chloride 96 L (98-107) mmol/L Carbon Dioxide 27 (22-30) mmol/L BUN 17 (9-20) mg/dL Creatinine 0.59 L (0.66-1.25) mg/dL Glucose 344 H (74-99) mg/dL Calcium 8.7 (8.4-10.2) mg/dL Total Bilirubin 0.4 (0.2-1.3) mg/dL AST 16 L (17-59) U/L ALT 12 (4-49) U/L Alkaline Phosphatase 112 (38-126) U/L Total Protein 7.3 (6.3-8.2) g/dL Albumin 2.9 L (3.5-5.0) g/dL - Imaging Chest x-ray: report reviewed, image reviewed CT scan - chest: report reviewed, image reviewed EKG: image reviewed Assessment and Plan Assessment: Loculated left-sided pleural effusion with air-fluid level Shortness of breath secondary to above History of loculated left effusion with pigtail catheter placement last admissio n, for installations of lytics Recent bilateral pneumonia Covid last admit Hypertension Paroxysmal atrial fibrillation last admission, not on anticoagulation, currently sinus rhythm History of CVA Diabetes mellitus type 2, insulin-dependent Schizoaffective disorder Thyroid disease GERD Medical debility, lives in an AFC home Plan: The patient was seen and examined laying in bed on the medical surgical floor in no acute distress. He does state he is short of breath when asked but does not appear to be in any respiratory distress. Remains on room air with oxygen satur ation in the mid 90s, remains afebrile, WBC normal. Currently on IV Rocephin and Flagyl. Currently in neutropenic precautions. Case reviewed with Dr. Hall including outside CT scan at [facility]. This gentleman would be very high risk for surgical decortication. Recommend interventional radiology place a pigtail catheter and allow effusion to drain. Antibiotic management per pulmonology. Medical management of other comorbidities per internal medicine, pulmonary, hematology. Plans for surgical intervention at this point. Thank you for this consult. We will continue to follow and make further recommendations as appropriate. I have personally seen and examined the patient, performed the documentation and the assessment and plan as written. Number of minutes spent on the visit: 30. IRENA BassC
[2024-10-17 12:01] LABS: Glucose,Whole Blood 175 mg/dL (70-110)
--- NOTE | 2024-10-17 16:05 | P.HPIM ---
History of Present Illness H&P Date: 10/17/24 Chief Complaint: Short of breath 59-year-old patient who follows with visiting physicians. Recently in the hospital from September 26 through October 14. Patient is a resident of [facility]. Patient was then admitted for worsening respiratory status. Patient was admitted present LV function. Left-sided chest tube was placed. Significant amount of fluid was obtained. Patient eventually pulled out the tube. Bloody fluid cultures came back negative. She did receive a prolonged course of IV Zosyn and was discharged on a short course of Augmentin. Patient now again presented to [facility] increasing shortness of breath. X-ray showed reaccumulation of pleural fluid. Cardiothoracic surgery was consulted. Chest tube was placed. Last time patient received 4 courses of alteplase/dornase. Also seen by psychiatry Dr. Parson last time would make medication changes. Patient does have a legal guardian. Review of systems: GEN.: Tired EYES: None HEENT: None NECK: None RESPIRATORY: Short of breath CARDIOVASCULAR: None GASTROINTESTINAL: None GENITOURINARY: None MUSCULOSKELETAL: None LYMPHATICS: None HEMATOLOGICAL: None PSYCHIATRY: Anxious NEUROLOGICAL: None Social history: Resident of [facility] On examination: VITAL SIGNS: 98.9, 63, 20, 134/99, 96% 2 L upon presentation GENERAL APPEARANCE: Resting in bed, comfortable HEENT: Normal external appearance of nose and ear. Oral cavity normal EYES: Pupils equal. Conjunctiva normal. NECK: JVD not raised. Mass not palpable. RESPIRATORY: Respiratory effort normal, decreased breath sounds. Left-sided chest drain CARDIOVASCULAR: First and second sounds normal. No edema. ABDOMEN: Soft. Liver and spleen not palpable. No tenderness. No mass palpable. PSYCHIATRY: Answering simple questions INVESTIGATIONS, reviewed in the clinical context: October 17, 2024: White count 4.2 hemoglobin 12.1 platelets 219 sodium 132 potassium 4.8 creatinine 0.59 EKG tracing personally reviewed by me-normal sinus rhythm. Rate 67 Chest x-ray film personally reviewed by [id number] pleural effusion Recent admission Pleural fluid culture: Negative Assessment and plan: -Recurrent left pleural effusion in a patient who recently had complicated pneumonia with pleural effusion. He had a chest tube on the recent admission. Initially it was placed on September 30. And pulled out on October 09. That he had pulled out. Patient was discharged on 3 L of oxygen. Left-sided chest tube placed. Cardiothoracic and pulmonary following. ID consulted for antibiotic -Acute hypoxemic respiratory failure, secondary to pleural effusion/pneumonia On 3 L nasal cannula -Paroxysmal atrial fibrillation currently in sinus rhythm Cardizem CD 360 mg a day. Lopressor 25 mg twice daily Leukocytosis secondary to above Schizoaffective disorder -Bipolar disorder with anxiety/depression Desyrel. Depakote Seroquel 25 mg twice daily added for agitation. Doing much better -Diabetes mellitus, type II, chronically insulin, uncontrolled with hyperglycemia Regular insulin twice daily -Essential hypertension Cardizem CD 360 mg. Lopressor -Gastroesophageal reflux disease Pepcid as needed -Public guardian -Full code Past Medical History Past Medical History: Asthma, COPD, CVA/TIA, Diabetes Mellitus, Hypertension, Pneumonia, Thyroid Disorder Additional Past Medical History / Comment(s): Tremors History of Any Multi-Drug Resistant Organisms: None Reported Past Surgical History: Cholecystectomy Additional Past Surgical History / Comment(s): LEFT EYE Past Anesthesia/Blood Transfusion Reactions: No Reported Reaction Past Psychological History: Anxiety, Bipolar, Depression, Schizoaffective Disorder Smoking Status: Current every day smoker Past Alcohol Use History: None Reported Past Drug Use History: None Reported Additional Drug Use History / Comment(s): pt is a very poor historian - Past Family History Father Family Medical History: Unable to Obtain Medications and Allergies Home Medications Medication Instructions Recorded Confirmed Type Aspirin EC [Ecotrin Low Dose] 81 mg PO DAILY 11/06/23 10/16/24 History Metoprolol Tartrate [Lopressor] 50 mg PO BID 11/06/23 10/16/24 History Folic Acid 1 mg PO DAILY #30 tab 11/08/23 10/16/24 Rx [place]-3 Acid Ethyl Esters [Lovaza] 1 gm PO BID 06/19/24 10/16/24 History Divalproex ER [Depakote ER] 500 mg PO TID 09/26/24 10/16/24 History amantadine HCL [Symmetrel] 100 mg PO DAILY 09/26/24 10/16/24 History traZODone HCL [Desyrel] 50 mg PO HS PRN 09/26/24 10/16/24 History Albuterol Inhaler [Ventolin Hfa 2 puff INHALATION RT-Q2H PRN #1 10/14/24 10/16/24 Rx Inhaler] each Amoxic-Pot Clav 875-125Mg 1 tab PO BID #6 tab 10/14/24 10/16/24 Rx [Augmentin 875-125] Fluconazole [Diflucan] 100 mg PO DAILY #7 tab 10/14/24 10/16/24 Rx Fluticasone Nasal [place] [Flonase 2 spray EA NOSTRIL DAILY #1 ml 10/14/24 10/16/24 Rx Nasal [place]] Insulin Regular, Human [NovoLIN R 15 units SQ AC-BID #0 10/14/24 10/16/24 Rx Flexpen] Naproxen [Naprosyn] 250 mg PO Q8HR PRN #30 tab 10/14/24 10/16/24 Rx OLANZapine [ZyPREXA] 5 mg PO TID PRN #30 tab 10/14/24 10/16/24 Rx Tiotropium 2.5 Mcg/Puff [Spiriva 2 puff INHALATION RT-DAILY #1 each 10/14/24 10/16/24 Rx Respimat 2.5 Mcg] Loratadine [Claritin] 10 mg PO DAILY 10/16/24 10/16/24 History QUEtiapine FUMARATE [SEROquel] 600 mg PO HS 10/16/24 10/16/24 History dilTIAZem HCL [Cardizem CD] 120 mg PO DAILY 10/16/24 10/16/24 History dilTIAZem HCL [Cardizem CD] 240 mg PO DAILY 10/16/24 10/16/24 History fluPHENAZine HCl 10 mg PO DAILY 10/16/24 10/16/24 History guaiFENesin-DM 600/30MG [Mucinex 2 tab PO Q12HR PRN 10/16/24 10/16/24 History Dm] hydrOXYzine HCL [Atarax] 25 mg PO DAILY PRN 10/16/24 10/16/24 History Allergies Allergy/AdvReac Type Severity Reaction Status Date / Time amlodipine Allergy Unknown Verified 10/16/24 17:28 aripiprazole [From Abilify] Allergy Unknown Verified 10/16/24 17:28 atorvastatin [From Lipitor] Allergy Unknown Verified 10/16/24 17:28 benztropine [From Cogentin] Allergy Unknown Verified 10/16/24 17:28 fluphenazine [From Prolixin] Allergy "passes Verified 10/16/24 17:28 out" gabapentin Allergy Unknown Verified 10/16/24 17:28 haloperidol [From Haldol] Allergy Angry Verified 10/16/24 17:28 metformin Allergy Unknown Verified 10/16/24 17:28 olanzapine [From Zyprexa] Allergy Unknown Verified 10/16/24 17:28 paliperidone [From Invega] Allergy Unknown Verified 10/16/24 17:28 ziprasidone [From Geodon] Allergy Unknown Verified 10/16/24 17:28 chlorpromazine AdvReac Angry Verified 10/16/24 17:28 [From Thorazine] thiothixene AdvReac Angry Verified 10/16/24 17:28 ABILIFY INJECTION Allergy Unknown Uncoded 10/16/24 15:43 INVEGA INJECTION Allergy Unknown Uncoded 10/16/24 15:43 Physical Exam Vitals: Vital Signs Temp Pulse Pulse Resp BP BP Pulse Ox 10/17/24 08:24 16 10/17/24 07:30 98 F 80 16 122/69 93 L 10/17/24 00:12 98.6 F 71 17 156/73 95 10/16/24 23:51 67 18 144/68 99 10/16/24 22:00 98.3 F 72 18 144/68 98 10/16/24 20:00 68 18 147/61 99 10/16/24 18:15 74 10/16/24 18:10 98.8 F 75 18 146/67 98 10/16/24 18:09 72 10/16/24 17:20 99.4 F 71 20 133/63 98 10/16/24 15:44 18 10/16/24 15:37 98.9 F 63 20 134/99 96 Intake and Output 10/16/24 10/17/24 10/17/24 22:59 06:59 14:59 Output Total 550 800 Balance -550 -800 Output: Urine 550 800 Other: Voiding Method Diaper External Catheter # Voids 1 1 Weight 90.718 kg 90.718 kg Results CBC & Chem 7: 10/17/24 02:38 10/17/24 02:38 Labs: Abnormal Lab Results - Last 24 Hours (Table) 10/16/24 10/17/24 10/17/24 Range/Units 23:24 02:38 02:38 RBC 3.84 L (4.30-5.90) m/uL Hgb 12.1 L (13.0-17.5) gm/dL Hct 36.0 L (39.0-53.0) % Neutrophils # (Manual) 0.10 L* (1.3-7.7) k/uL Monocytes # (Manual) 1.68 H (0-1.0) k/uL Metamyelocytes # (Man) 0.04 H (0) k/uL Sodium 132 L (137-145) mmol/L Chloride 96 L (98-107) mmol/L Creatinine 0.59 L (0.66-1.25) mg/dL Glucose 344 H (74-99) mg/dL POC Glucose (mg/dL) 393 H (70-110) mg/dL AST 16 L (17-59) U/L Albumin 2.9 L (3.5-5.0) g/dL 10/17/24 Range/Units 06:24 RBC (4.30-5.90) m/uL Hgb (13.0-17.5) gm/dL Hct (39.0-53.0) % Neutrophils # (Manual) (1.3-7.7) k/uL Monocytes # (Manual) (0-1.0) k/uL Metamyelocytes # (Man) (0) k/uL Sodium (137-145) mmol/L Chloride (98-107) mmol/L Creatinine (0.66-1.25) mg/dL Glucose (74-99) mg/dL POC Glucose (mg/dL) 238 H (70-110) mg/dL AST (17-59) U/L Albumin (3.5-5.0) g/dL Thrombosis Risk Factor Assmnt - Choose All That Apply Any of the Below Risk Factors Present?: Yes Each Factor Represents 1 point: Age 41-60 years Thrombosis Risk Factor Assessment Total Risk Factor Score: 1 Thrombosis Risk Factor Assessment Level: Low Risk
[2024-10-17 16:26] LABS: Glucose,Whole Blood 340 mg/dL (70-110)
--- NOTE | 2024-10-17 16:48 | P.CONS ---
History of Present Illness - Reason for Consult Consult date: 10/17/24 neutropenia Requesting physician: Jae Morin - Chief Complaint sent from [facility] - History of Present Illness Mr. Dumont is a 59-year-old male who was recently admitted for 12 days with covid and pneumonia, he was discharged 2 days ago to his [facility] home. He has returned for prog SOB. All info is taken from chart, pt does not open eyes or talk to me. He CT of the chest at [place], left chest fluid collection measuring 6.1 x 9.5 x 11.3 cm suspicious for infection and moderate adjacent consolidation favoring compressive atelectasis. He was started on abx and transferred here. He had chest tube on the left reinserted today per RN. Neutropenia of 100 on today's CBC. Mild anemia with Hgb 12.1. Plt normal. Review of Systems ROS unobtainable: due to mental status Past Medical History Past Medical History: Asthma, COPD, CVA/TIA, Diabetes Mellitus, Hypertension, Pneumonia, Thyroid Disorder Additional Past Medical History / Comment(s): Tremors History of Any Multi-Drug Resistant Organisms: None Reported Past Surgical History: Cholecystectomy Additional Past Surgical History / Comment(s): LEFT EYE Past Anesthesia/Blood Transfusion Reactions: No Reported Reaction Past Psychological History: Anxiety, Bipolar, Depression, Schizoaffective Disorder Smoking Status: Current every day smoker Past Alcohol Use History: None Reported Past Drug Use History: None Reported Additional Drug Use History / Comment(s): pt is a very poor historian - Past Family History Father Family Medical History: Unable to Obtain Medications and Allergies Home Medications Medication Instructions Recorded Confirmed Type Aspirin EC [Ecotrin Low Dose] 81 mg PO DAILY 11/06/23 10/16/24 History Metoprolol Tartrate [Lopressor] 50 mg PO BID 11/06/23 10/16/24 History Folic Acid 1 mg PO DAILY #30 tab 11/08/23 10/16/24 Rx [place]-3 Acid Ethyl Esters [Lovaza] 1 gm PO BID 06/19/24 10/16/24 History Divalproex ER [Depakote ER] 500 mg PO TID 09/26/24 10/16/24 History amantadine HCL [Symmetrel] 100 mg PO DAILY 09/26/24 10/16/24 History traZODone HCL [Desyrel] 50 mg PO HS PRN 09/26/24 10/16/24 History Albuterol Inhaler [Ventolin Hfa 2 puff INHALATION RT-Q2H PRN #1 10/14/24 10/16/24 Rx Inhaler] each Amoxic-Pot Clav 875-125Mg 1 tab PO BID #6 tab 10/14/24 10/16/24 Rx [Augmentin 875-125] Fluconazole [Diflucan] 100 mg PO DAILY #7 tab 10/14/24 10/16/24 Rx Fluticasone Nasal [place] [Flonase 2 spray EA NOSTRIL DAILY #1 ml 10/14/2410/02 Rx Nasal [place]] Insulin Regular, Human [NovoLIN R 15 units SQ AC-BID #0 10/14/24 10/16/24 Rx Flexpen] Naproxen [Naprosyn] 250 mg PO Q8HR PRN #30 tab 10/14/24 10/16/24 Rx OLANZapine [ZyPREXA] 5 mg PO TID PRN #30 tab 10/14/24 10/16/24 Rx Tiotropium 2.5 Mcg/Puff [Spiriva 2 puff INHALATION RT-DAILY #1 each 10/14/24 10/16/24 Rx Respimat 2.5 Mcg] Loratadine [Claritin] 10 mg PO DAILY 10/16/24 10/16/24 History QUEtiapine FUMARATE [SEROquel] 600 mg PO HS 10/16/24 10/16/24 History dilTIAZem HCL [Cardizem CD] 120 mg PO DAILY 10/16/24 10/16/24 History dilTIAZem HCL [Cardizem CD] 240 mg PO DAILY 10/16/24 10/16/24 History fluPHENAZine HCl 10 mg PO DAILY 10/16/24 10/16/24 History guaiFENesin-DM 600/30MG [Mucinex 2 tab PO Q12HR PRN 10/16/24 10/16/24 History Dm] hydrOXYzine HCL [Atarax] 25 mg PO DAILY PRN 10/16/24 10/16/24 History Allergies Allergy/AdvReac Type Severity Reaction Status Date / Time amlodipine Allergy Unknown Verified 10/16/24 17:28 aripiprazole [From Abilify] Allergy Unknown Verified 10/16/24 17:28 atorvastatin [From Lipitor] Allergy Unknown Verified 10/16/24 17:28 benztropine [From Cogentin] Allergy Unknown Verified 10/16/24 17:28 fluphenazine [From Prolixin] Allergy "passes Verified 10/16/24 17:28 out" gabapentin Allergy Unknown Verified 10/16/24 17:28 haloperidol [From Haldol] Allergy Angry Verified 10/16/24 17:28 metformin Allergy Unknown Verified 10/16/24 17:28 olanzapine [From Zyprexa] Allergy Unknown Verified 10/16/24 17:28 paliperidone [From Invega] Allergy Unknown Verified 10/16/24 17:28 ziprasidone [From Geodon] Allergy Unknown Verified 10/16/24 17:28 chlorpromazine AdvReac Angry Verified 10/16/24 17:28 [From Thorazine] thiothixene AdvReac Angry Verified 10/16/24 17:28 ABILIFY INJECTION Allergy Unknown Uncoded 10/16/24 15:43 INVEGA INJECTION Allergy Unknown Uncoded 10/16/24 15:43 Physical Exam Vitals: Vital Signs Temp Pulse Pulse Resp BP BP Pulse Ox 10/17/24 00:12 98.6 F 71 17 156/73 95 10/16/24 23:51 67 18 144/68 99 10/16/24 22:00 98.3 F 72 18 144/68 98 10/16/24 20:00 68 18 147/61 99 10/16/24 18:15 74 10/16/24 18:10 98.8 F 75 18 146/67 98 10/16/24 18:09 72 10/16/24 17:20 99.4 F 71 20 133/63 98 10/16/24 15:44 18 10/16/24 15:37 98.9 F 63 20 134/99 96 Intake and Output 10/16/24 10/17/24 10/17/24 22:59 06:59 14:59 Output Total 550 800 Balance -550 -800 Output: Urine 550 800 Other: Voiding Method Diaper External Catheter # Voids 1 1 Weight 90.718 kg 90.718 kg - Constitutional Appears normal physical development, no distress, resp unlabored, skin warm to touch, well perfused, No rashes on visible skin. Pt would not open eyes or talk to me to give me consent for physical exam. General appearance: average body habitus Results CBC & Chem 7: 10/17/24 02:38 10/17/24 02:38 Labs: Abnormal Lab Results - Last 24 Hours (Table) 10/16/24 10/17/24 10/17/24 Range/Units 23:24 02:38 02:38 RBC 3.84 L (4.30-5.90) m/uL Hgb 12.1 L (13.0-17.5) gm/dL Hct 36.0 L (39.0-53.0) % Neutrophils # (Manual) 0.10 L* (1.3-7.7) k/uL Monocytes # (Manual) 1.68 H (0-1.0) k/uL Metamyelocytes # (Man) 0.04 H (0) k/uL Sodium 132 L (137-145) mmol/L Chloride 96 L (98-107) mmol/L Creatinine 0.59 L (0.66-1.25) mg/dL Glucose 344 H (74-99) mg/dL POC Glucose (mg/dL) 393 H (70-110) mg/dL AST 16 L (17-59) U/L Albumin 2.9 L (3.5-5.0) g/dL 10/17/24 Range/Units 06:24 RBC (4.30-5.90) m/uL Hgb (13.0-17.5) gm/dL Hct (39.0-53.0) % Neutrophils # (Manual) (1.3-7.7) k/uL Monocytes # (Manual) (0-1.0) k/uL Metamyelocytes # (Man) (0) k/uL Sodium (137-145) mmol/L Chloride (98-107) mmol/L Creatinine (0.66-1.25) mg/dL Glucose (74-99) mg/dL POC Glucose (mg/dL) 238 H (70-110) mg/dL AST (17-59) U/L Albumin (3.5-5.0) g/dL Assessment and Plan (1) Neutropenia Current Visit: Yes Status: Acute Priority: Medium Code(s): D70.9 - NEUTROPENIA, UNSPECIFIED SNOMED Code(s): 623626667 Plan: Neutropenia -New onset. Of the few labs in this EMR all ANC prior were elevated -No fevers, VSS. Cont to monitor. 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 -Recheck lab in AM. If persistently low, additional work up will be ordered
[2024-10-17] MEDS ORDERED: DEXTROSE 50% SYRINGE 50 ML IVP PRN ×2 (17:02)
[2024-10-17] MEDS: INSULIN ASPART (NovoLOG) 100 UNIT/ML VIAL SQ SCH (17:30)
[2024-10-17 21:14] LABS: Glucose,Whole Blood 303 mg/dL (70-110)
[2024-10-17] MEDS: NAPROXEN 250 MG TAB PO PRN (22:21)
[2024-10-17 22:46] LABS: Appearance,BF Cloudy (Clear)
[2024-10-18 03:54] LABS: HCT 36.7 % (39.0-53.0); HGB 12.4 gm/dL (13.0-17.5); MCHC 33.7 g/dL (31.0-37.0); MCV 92.1 fL (80.0-100.0); Mean Platelet Volume 7.2; Platelet Count 239 k/uL (150-450); RBC 3.99 m/uL (4.30-5.90); RDW 14.9 % (11.5-15.5); WBC 5.6 k/uL (3.8-10.6)
[2024-10-18 06:17] LABS: Glucose,Whole Blood 162 mg/dL (70-110)
--- NOTE | 2024-10-18 07:05 | US ---
EXAMINATION TYPE: US guided chest tube insertion DATE OF EXAM: 10/17/2024 COMPARISON: Outside CTA chest October 16, 2024 HISTORY: Abnormal pleural fluid collection TECHNIQUE: Ultrasound assisted chest tube insertion. FINDINGS: Ultrasound guidance was provided during chest tube insertion procedure performed by myself. The procedure was discussed with the patient. The risks, complications, benefits, and alternatives we re discussed and any questions were answered. Informed [facility] was [facility] The patient was placed sitting up on the ultrasound table and prepped and draped in the usual st erile fashion. Sonographic images shows activity focal pleural fluid collection in the left mid to lo wer thorax from posterior approach All elements of maximal barrier technique were utilized. Lidocaine with bicarbonate is used as anesth etic into the skin and deeper tissue. Under ultrasound guidance, access into left-sided pleural fluid collection was obtained. Pleural pigtail drainage catheter is advanced into collection and needle is withdrawn. The IR nurse fixed catheter to patient. Patient tolerated procedure well without any immediate complication. Fluid was withdrawn and sent to lab for desired analysis. Patient was sent back to room in stable and satisfactory condition. IMPRESSION: Successful ultrasound-guided placement of pleural pigtail drainage catheter in the left c hest. Chest tube remains in place as desired when patient sent back to floor. [facility], , 10/18/2024 7:03 AM
--- NOTE | 2024-10-18 07:17 | XR ---
EXAMINATION TYPE: XR chest 1V portable DATE OF EXAM: 10/18/2024 7:09 AM COMPARISON: Chest radiographs from 10/16/2024 CLINICAL INDICATION: Male, 59 years old with history of effusion; [facility] TECHNIQUE: XR chest 1V portable Frontal view of the chest. FINDINGS: Lungs/Pleura: Trace blunting of left costophrenic angle There is no evidence of pleural effusion, foc al consolidation, or pneumothorax. Pulmonary vascularity: Unremarkable. Heart/mediastinum: Cardiomediastinal silhouette is unremarkable. Musculoskeletal: No acute osseous pathology. Other findings: None Lines/Tubes: Left thoracotomy tube is present without evidence of pneumothorax. IMPRESSION: 1. No acute cardiopulmonary disease/process. 2. Left thoracotomy tube with atelectasis and trace left pleural effusion. No pneumothorax. [facility], , 10/18/2024 7:14 AM
[2024-10-18 08:37] LABS: Eosinophils # (M) 0.11 k/uL (0-0.7); Large Platelets Present; Lymphocytes # (M) 2.35 k/uL (1.0-4.8); Monocytes # (M) 2.58 k/uL (0-1.0); Neutrophils # (M) 0.56 k/uL (1.3-7.7); Neutrophils % (M) 10 %; Nucleated Red Blood Cells 0 /100 WBC (0-0); Total Cells Counted 100
--- NOTE | 2024-10-18 09:40 | P.CONS ---
History of Present Illness - Reason for Consult Consult date: 10/17/24 Empyema Requesting physician: Brunilda Crocker - Chief Complaint Increasing shortness of breath x 2 days - History of Present Illness Patient is a 59-year-old male with a past medical history significant for diabetes mellitus hypertension CVA TIA COPD bipolar depression and Schizoaffective Disorder with recent admission to hospital with a left-sided empyema status post chest tube placement cultures are negative patient did received IV antibiotic therapy and subsequently discharged to the [facility] patient subsequently has been sent from the [facility] to [facility] for evaluation of increasing shortness of breath patient did have a CT of the chest at that facility that was negative for PE did shows left chest fluid collection highly suspicious for empyema for the patient had been sent back to [facility] patient on presentation to hospital did have a low-grade fever of 99.4 degrees for night patient was not tachycardic hypotensive mildly hypoxic currently on 2 L, oxygen patient did have a white count of 4.2 creatinine 0.59 patient has been started on Rocephin Flagyl infectious disease was consulted for further management of antibiotic therapy most information has been made for be discharged the patient currently sleeping did not answer any question no vomiting or diarrhea reported by the nursing staff Review of Systems Positive point and negatives has been mentioned in the HPI, complete review of systems was performed and all other systems are negative Past Medical History Past Medical History: Asthma, COPD, CVA/TIA, Diabetes Mellitus, Hypertension, Pneumonia, Thyroid Disorder Additional Past Medical History / Comment(s): Tremors History of Any Multi-Drug Resistant Organisms: None Reported Past Surgical History: Cholecystectomy Additional Past Surgical History / Comment(s): LEFT EYE Past Anesthesia/Blood Transfusion Reactions: No Reported Reaction Past Psychological History: Anxiety, Bipolar, Depression, Schizoaffective Disorder Smoking Status: Current every day smoker Past Alcohol Use History: None Reported Past Drug Use History: None Reported Additional Drug Use History / Comment(s): pt is a very poor historian - Past Family History Father Family Medical History: Unable to Obtain Medications and Allergies Home Medications Medication Instructions Recorded Confirmed Type Aspirin EC [Ecotrin Low Dose] 81 mg PO DAILY 11/06/23 10/16/24 History Metoprolol Tartrate [Lopressor] 50 mg PO BID 11/06/23 10/16/24 History Folic Acid 1 mg PO DAILY #30 tab 11/08/23 10/16/24 Rx [place]-3 Acid Ethyl Esters [Lovaza] 1 gm PO BID 06/19/24 10/16/24 History Divalproex ER [Depakote ER] 500 mg PO TID 09/26/24 10/16/24 History amantadine HCL [Symmetrel] 100 mg PO DAILY 09/26/24 10/16/24 History traZODone HCL [Desyrel] 50 mg PO HS PRN 09/26/24 10/16/24 History Albuterol Inhaler [Ventolin Hfa 2 puff INHALATION RT-Q2H PRN #1 10/14/24 10/16/24 Rx Inhaler] each Amoxic-Pot Clav 875-125Mg 1 tab PO BID #6 tab 10/14/24 10/16/24 Rx [Augmentin 875-125] Fluconazole [Diflucan] 100 mg PO DAILY #7 tab 10/14/24 10/16/24 Rx Fluticasone Nasal [place] [Flonase 2 spray EA NOSTRIL DAILY #1 ml 10/14/24 10/16/24 Rx Nasal [place]] Insulin Regular, Human [NovoLIN R 15 units SQ AC-BID #0 10/14/24 10/16/24 Rx Flexpen] Naproxen [Naprosyn] 250 mg PO Q8HR PRN #30 tab 10/14/24 10/16/24 Rx OLANZapine [ZyPREXA] 5 mg PO TID PRN #30 tab 10/14/24 10/16/24 Rx Tiotropium 2.5 Mcg/Puff [Spiriva 2 puff INHALATION RT-DAILY #1 each 10/14/24 10/16/24 Rx Respimat 2.5 Mcg] Loratadine [Claritin] 10 mg PO DAILY 10/16/24 10/16/24 History QUEtiapine FUMARATE [SEROquel] 600 mg PO HS 10/16/24 10/16/24 History dilTIAZem HCL [Cardizem CD] 120 mg PO DAILY 10/16/24 10/16/24 History dilTIAZem HCL [Cardizem CD] 240 mg PO DAILY 10/16/24 10/16/24 History fluPHENAZine HCl 10 mg PO DAILY 10/16/24 10/16/24 History guaiFENesin-DM 600/30MG [Mucinex 2 tab PO Q12HR PRN 10/16/24 10/16/24 History Dm] hydrOXYzine HCL [Atarax] 25 mg PO DAILY PRN 10/16/24 10/16/24 History Allergies Allergy/AdvReac Type Severity Reaction Status Date / Time amlodipine Allergy Unknown Verified 10/16/24 17:28 aripiprazole [From Abilify] Allergy Unknown Verified 10/16/24 17:28 atorvastatin [From Lipitor] Allergy Unknown Verified 10/16/24 17:28 benztropine [From Cogentin] Allergy Unknown Verified 10/16/24 17:28 fluphenazine [From Prolixin] Allergy "passes Verified 10/16/24 17:28 out" gabapentin Allergy Unknown Verified 10/16/24 17:28 haloperidol [From Haldol] Allergy Angry Verified 10/16/24 17:28 metformin Allergy Unknown Verified 10/16/24 17:28 olanzapine [From Zyprexa] Allergy Unknown Verified 10/16/24 17:28 paliperidone [From Invega] Allergy Unknown Verified 10/16/24 17:28 ziprasidone [From Geodon] Allergy Unknown Verified 10/16/24 17:28 chlorpromazine AdvReac Angry Verified 10/16/24 17:28 [From Thorazine] thiothixene AdvReac Angry Verified 10/16/24 17:28 ABILIFY INJECTION Allergy Unknown Uncoded 10/16/24 15:43 INVEGA INJECTION Allergy Unknown Uncoded 10/16/24 15:43 Physical Exam Vitals: Vital Signs Temp Pulse Pulse Resp BP BP Pulse Ox 10/17/24 08:24 16 10/17/24 07:30 98 F 80 16 122/69 93 L 10/17/24 00:12 98.6 F 71 17 156/73 95 10/16/24 23:51 67 18 144/68 99 10/16/24 22:00 98.3 F 72 18 144/68 98 10/16/24 20:00 68 18 147/61 99 10/16/24 18:15 74 10/16/24 18:10 98.8 F 75 18 146/67 98 10/16/24 18:09 72 10/16/24 17:20 99.4 F 71 20 133/63 98 10/16/24 15:44 18 10/16/24 15:37 98.9 F 63 20 134/99 96 Intake and Output 10/16/24 10/17/24 10/17/24 22:59 06:59 14:59 Output Total 550 800 Balance -550 -800 Output: Urine 550 800 Other: Voiding Method Diaper External Catheter # Voids 1 1 Weight 90.718 kg 90.718 kg GENERAL DESCRIPTION: Middle-aged male lying in bed, no distress. No tachypnea or accessory muscle of respiration use. HEENT: Shows Pallor , no scleral icterus. Oral mucous membrane is dry. No pharyngeal erythema or thrush NECK: Trachea central, no thyromegaly. LUNGS: Unlabored breathing. Decreased breath sound at the base HEART: S1, S2, regular rate and rhythm. No loud murmur ABDOMEN: Soft, no tenderness EXTREMITIES: No edema of feet. SKIN: No rash, no masses palpable. NEUROLOGICAL: The patient is sleepy but arousable mood and affect normal. Results CBC & Chem 7: 10/18/24 03:01 10/17/24 02:38 Labs: Abnormal Lab Results - Last 24 Hours (Table) 10/16/24 10/17/24 10/17/24 Range/Units 23:24 02:38 02:38 RBC 3.84 L (4.30-5.90) m/uL Hgb 12.1 L (13.0-17.5) gm/dL Hct 36.0 L (39.0-53.0) % Neutrophils # (Manual) 0.10 L* (1.3-7.7) k/uL Monocytes # (Manual) 1.68 H (0-1.0) k/uL Metamyelocytes # (Man) 0.04 H (0) k/uL Sodium 132 L (137-145) mmol/L Chloride 96 L (98-107) mmol/L Creatinine 0.59 L (0.66-1.25) mg/dL Glucose 344 H (74-99) mg/dL POC Glucose (mg/dL) 393 H (70-110) mg/dL AST 16 L (17-59) U/L Albumin 2.9 L (3.5-5.0) g/dL 10/17/24 Range/Units 06:24 RBC (4.30-5.90) m/uL Hgb (13.0-17.5) gm/dL Hct (39.0-53.0) % Neutrophils # (Manual) (1.3-7.7) k/uL Monocytes # (Manual) (0-1.0) k/uL Metamyelocytes # (Man) (0) k/uL Sodium (137-145) mmol/L Chloride (98-107) mmol/L Creatinine (0.66-1.25) mg/dL Glucose (74-99) mg/dL POC Glucose (mg/dL) 238 H (70-110) mg/dL AST (17-59) U/L Albumin (3.5-5.0) g/dL Assessment and Plan (1) Empyema of lung Current Visit: Yes Status: Acute Code(s): J86.9 - PYOTHORAX WITHOUT FISTULA SNOMED Code(s): 03112756 Plan: 1patient is in the hospital with increasing shortness of breath in this patient with outpatient CT concerning for a left-sided fluid collection with gas concerning for empyema and this patient did have a similar presentation for the brain did have a chest tube placement culture were negative and the patient did received extensive IV antibiotic therapy and was advised oral antibiotics on DC, patient currently waiting for CT surgery evaluation for possible chest tube ve rsus thoracotomy and deep culture 2-we will continue patient on Rocephin and Flagyl keeping in mind last pleural fluid culture did not show any resistant pathogen We will follow on clinical condition and cultures to further adjust medication if needed Thank you for this consultation we will follow the patient along with you Dictation was produced using [employer] dictation software. please excuse any grammatical, word or spelling errors. Time with Patient: Greater than 30
[2024-10-18 11:30] LABS: Glucose,Whole Blood 225 mg/dL (70-110)
--- NOTE | 2024-10-18 12:23 | P.PN ---
Subjective Progress Note Date: 10/18/24 Principal diagnosis: Recurrent left pleural effusion, status post 4 alteplase/dornase pleural installations through his left chest pigtail catheter, his last alteplase/dornase treatment was on October 08, 2024. Past medical history significant for asthma, COPD, CVA, diabetes mellitus type 2, hypertension, thyroid disorder, GERD, anxiety, depression, bipolar disorder, and schizoa ffective disorder. The patient was seen and examined in follow-up today [facility]. He is currently laying in bed, is awake, alert, oriented x 3 and is in no acute apparent distress. He is tolerating his breakfast. He is currently on room air with oxygen saturations 95%. He denies any complaints of shortness of breath at this time. The patient underwent a placement of a left chest pigtail catheter, placed by interventional radiology yesterday October 17, 2024. No air leak is present. Draining thin serous to serous sanguinous drainage with 10 mL output in the last 8 hours and 130 mL output since placement. His Tmax temperature in the last 24 hours was 99.4 F. The patient is being followed by infectious disease and he is currently being treated with Rocephin and Flagyl for antibiotic coverage. Chest x-ray results reviewed. Laboratory results this morning show a WBC count of 5.6. Objective - Vital Signs Vital signs: Vital Signs Temp 97.7 F 10/18/24 08:00 Pulse 76 10/18/24 09:19 Resp 18 10/18/24 08:00 BP 131/68 10/18/24 08:00 Pulse Ox 97 10/18/24 08:00 FiO2 Intake & Output 10/17/24 10/18/24 10/18/24 18:59 06:59 18:59 Intake Total 150 Output Total 100 2020 Balance 50 -2020 Intake: Intake, IV Titration 150 Amount cefTRIAXone 2 gm In 50 Sodium Chloride 0.9% 50 ml @ 100 mls/hr IVPB Q24H [facility] Rx#:[id number] metroNIDAZOLE-NS PMX 500 100 mg In Saline 1 100ml.bag @ 100 mls/hr IVPB BID [facility] Rx#:[id number] Output: Chest Tube Drainage 100 20 Chest Tube Left Posterior 100 20 Chest Urine 2000 Other: Voiding Method External Catheter - Exam CONSTITUTIONAL: Appears comfortable, cooperative, no acute distress RESPIRATORY: Lungs sounds diminished to his bilateral bases, left greater than right. Respirations symmetrical, nonlabored. Currently on room air and oxygen saturation 95%. Able to achieve 750-1000 mL on his incentive spirometry. [facility] nonproductive cough. CARDIOVASCULAR: S1, S2 present. Regular rate and rhythm, sinus rhythm on telemetry. Palpable peripheral pulses bilaterally. No edema present. No calf pain or tenderness noted. GASTROINTESTINAL: Abdomen soft, nontender, nondistended. Active bowel sounds present 4 quadrants. Tolerating diet. GENITOURINARY: Continues to void, external catheter in place. INTEGUMENTARY: Skin is warm and dry with no clubbing or cyanosis present. NEUROLOGIC: No focal deficits. MUSKULOSKELETAL: Able to move all extremities, strength equal bilaterally. PSYCHIATRIC: Alert and oriented to person place and time, flat affect, intact judgment and insight. INVASIVE LINES: Left chest pigtail catheter in place, connected to low continuous wall suction -20 cm H2O. No air leak is present. Draining thin serosanguineous drainage with 10 mL output in the last 8 hours and 130 mL output in the last 24 hours. - Allied health notes Allied health notes reviewed: nursing - Labs CBC & Chem 7: 10/18/24 03:01 10/17/24 02:38 Labs: Abnormal Lab Results - Last 24 Hours (Table) 10/17/24 10/17/24 10/17/24 Range/Units 11:30 16:23 21:13 RBC (4.30-5.90) m/uL Hgb (13.0-17.5) gm/dL Hct (39.0-53.0) % Neutrophils # (Manual) (1.3-7.7) k/uL Monocytes # (Manual) (0-1.0) k/uL POC Glucose (mg/dL) 340 H 303 H (70-110) mg/dL Fluid Appearance Cloudy A (Clear) 10/18/24 10/18/24 10/18/24 Range/Units 03:01 06:15 11:28 RBC 3.99 L (4.30-5.90) m/uL Hgb 12.4 L (13.0-17.5) gm/dL Hct 36.7 L (39.0-53.0) % Neutrophils # (Manual) 0.56 L (1.3-7.7) k/uL Monocytes # (Manual) 2.58 H (0-1.0) k/uL POC Glucose (mg/dL) 162 H 225 H (70-110) mg/dL Fluid Appearance (Clear) Microbiology - Last 24 Hours (Table) 10/17/24 11:30 Acid Fast Bacilli Smear - Preliminary Pleural Fluid 10/17/24 11:30 Gram Stain - Preliminary Pleural Fluid - Imaging and Cardiology Chest x-ray: report reviewed, image reviewed Assessment and Plan Assessment: Recurrent left-sided pleural effusion, status post pigtail catheter placement on September 30, 2024 by interventional radiology, status post instillation fourth dose of alteplase/dornase last dose given on October 08, 2024 History of paroxysmal atrial fibrillation with rapid ventricular response Hypertension History of CVA Diabetes mellitus type 2, insulin-dependent Schizoaffective disorder History of bipolar disorder with anxiety/depression GERD Medical debility Plan: Continue left pleural pigtail in place to low continuous wall suction -20 cm H2O. Continue to monitor output. We will repeat a CT scan on Monday, October 21, 2024 to reevaluate his left pleural effusion. Bronchodilator management per pulmonary/critical care medicine recommendations. Encourage use of incentive spirometry 10 times every hour while awake. Increase activity as tolerated. Out of bed for all meals. Continue to monitor daily chest x-rays. Medical management other comorbidities per internal medicine, infectious disease and pulmonary/critical care medicine. More recommendations to follow based on patient's clinical course. Time with Patient: Less than 30
--- NOTE | 2024-10-18 14:10 | P.PN ---
Subjective Progress Note Date: 10/18/24 Patient is a 59-year-old male with past medical history significant for pneumonia, diabetes mellitus, atrial fibrillation, CVA/TIA, hypertension, schizoaffective disorder, and resides at an [facility] home.. He had a recent hospitalization September 26 through October 14 for a loculated possibly parapneumonic left-sided pleural effusion, patient did have a pigtail catheter for placed thrombolytics September 30 which was inadvertently removed on October 09. This was an exudative effusion based on lights criteria. Microbiology was negative. Cytology also unremarkable. Patient did receive IV antibiotics while inpatient, and was discharged on p.o. Augmentin to be completed on outpatient basis. Previous follow-up chest x-ray showing only trace left-sided pleural effusion with atelectasis versus consolidative changes in the left lung base. Patient was eventually discharged back to his [facility]. Patient transferred from [facility] yesterday evening. Apparently, has had progressively worsening shortness of breath over the last week. Chest CT at outside facility did not show any pulmonary embolism. There was posterior basilar left chest loculated fluid collection, with air-fluid level, measuring 6.1 x 9.5 x 11.3 cm. Suspicious for empyema. There is a moderate adjacent consolidation or atelectasis. Patchy groundglass opacities throughout much of the bilateral lower and posterior dependent upper lobes. Patchy consolidation involving the anterior lateral peripheral lingula as well as left base. Workup so far upon transfer includes a chest x-ray showing above-mentioned fluid c ollection with air-fluid level over the posterior spine on lateral view. Awaiting follow-up labs. Patient is currently being evaluated emergency department. He is on room air. Not in any respiratory distress. He is alert and has a flat affect. Responses to interview are short and does not volunteer information. He denies any shortness of breath, cough, chest pain, back pain, fever/chills. Patient was started on antibiotics in the ED. Current most recent vital signs: Temperature 98.3 F, heart rate 67 bpm, blood pressure 144/68 mmHg, nontachypneic, SpO2 is 99% on room air. The patient is seen today October 18, 2024 in follow-up on the regular medical floor. He is currently resting comfortably or back. Awake and alert in no acute distress. Maintaining O2 saturations up to 100% on 2 L/min per nasal cannula. Afebrile. Hemodynamically stable. Left-sided pigtail catheter was pl aced by interventional radiology yesterday. X-ray reveals residual left-sided atelectatic changes. No evidence of pneumothorax. Pigtail catheter placed to Pleur-evac and wall suction. Minimal output currently. Cultures pending. White count 5.6. Hemoglobin 12.4. Platelets 239. Glucose 162. He remains on bronchodilators, Rocephin, Flagyl. Objective - Vital Signs Vital signs: Vital Signs Temp 97.7 F 10/18/24 08:00 Pulse 72 10/18/24 12:28 Resp 18 10/18/24 08:00 BP 131/68 10/18/24 08:00 Pulse Ox 97 10/18/24 08:00 FiO2 Intake & Output 10/17/24 10/18/24 10/18/24 18:59 06:59 18:59 Intake Total 150 Output Total 100 2020 Balance 50 -2020 Intake: Intake, IV Titration 150 Amount cefTRIAXone 2 gm In 50 Sodium Chloride 0.9% 50 ml @ 100 mls/hr IVPB Q24H [facility] Rx#:[id number] metroNIDAZOLE-NS PMX 500 100 mg In Saline 1 100ml.bag @ 100 mls/hr IVPB BID [facility] Rx#:[id number] Output: Chest Tube Drainage 100 20 Chest Tube Left Posterior 100 20 Chest Urine 2000 Other: Voiding Method External Catheter - Exam GENERAL EXAM: Alert, 59-year-old male, with flat affect, resting in bed, on 2 L nasal cannula, not in any distress. HEAD: Normocephalic and atraumatic EYES: Normal reaction of pupils, equal size. NOSE: Clear with pink turbinates. THROAT: No erythema or exudates. NECK: No masses, no JVD. CHEST: No chest wall deformity. Left-sided pigtail catheter in place. LUNGS: Equal air entry with posterior left chest inspiratory crackles. CVS: S1 and S2 normal with no audible murmur, regular rhythm. No extra heart sounds ABDOMEN: No hepatosplenomegaly, active bowel sounds, no guarding or rigidity. SPINE: No scoliosis or deformity SKIN: No rashes CENTRAL NERVOUS SYSTEM: No focal deficits, tone is normal in all 4 extremities. EXTREMITIES: There is no peripheral edema, clubbing, or cyanosis. Peripheral pulses are intact. - Labs CBC & Chem 7: 10/18/24 03:01 10/17/24 02:38 Labs: Abnormal Lab Results - Last 24 Hours (Table) 10/17/24 10/17/24 10/17/24 Range/Units 11:30 16:23 21:13 RBC (4.30-5.90) m/uL Hgb (13.0-17.5) gm/dL Hct (39.0-53.0) % Neutrophils # (Manual) (1.3-7.7) k/uL Monocytes # (Manual) (0-1.0) k/uL POC Glucose (mg/dL) 340 H 303 H (70-110) mg/dL Fluid Appearance Cloudy A (Clear) 10/18/24 10/18/24 10/18/24 Range/Units 03:01 06:15 11:28 RBC 3.99 L (4.30-5.90) m/uL Hgb 12.4 L (13.0-17.5) gm/dL Hct 36.7 L (39.0-53.0) % Neutrophils # (Manual) 0.56 L (1.3-7.7) k/uL Monocytes # (Manual) 2.58 H (0-1.0) k/uL POC Glucose (mg/dL) 162 H 225 H (70-110) mg/dL Fluid Appearance (Clear) Microbiology - Last 24 Hours (Table) 10/17/24 11:30 Acid Fast Bacilli Smear - Preliminary Pleural Fluid 10/17/24 11:30 Gram Stain - Preliminary Pleural Fluid Assessment and Plan Assessment: Acute dyspnea, CT chest done at outside facility showing posterior basilar left chest fluid collection, loculated, with air-fluid level, measuring 6.1 x 9.5 x 11.3 cm. Suspicious for empyema. There is a adjacent consolidation or atelectasis. Patchy groundglass opacities throughout much of the bilateral lower and posterior dependent upper lobes. Patchy consolidation involving the anterior lateral peripheral lingula, as well as, left base. On his previous admission he did have a left-sided pigtail catheter in place that was inadvertently removed. This admission he had another pigtail catheter placed October 17, 2024. Remains on ceftriaxone and Flagyl Complicated, loculated parapneumonic left-sided effusion, status post pigtail catheter placement on 09/30/2024, inadvertently removed on 10/09/2023. Exudative effusion based on Lights criteria and fluid analysis. Microbiology was negative. Cytology also unremarkable. Patient did receive IV antibiotics while inpatient, and was discharged with PO antibiotics to be completed outpatient. Ultimately, discharged back to [facility] home on October 14 History of COVID-19 infection History of atrial fibrillation, currently in normal sinus mechanism Diabetes mellitus, type II, with hyperglycemia History of mild intermittent chronic bronchial asthma. History of CVA. Hypertension. Gastroesophageal reflux disease. History of schizoaffective disorder/bipolar disorder/anxiety/depression [facility] resident. Plan: The patient was seen and evaluated Labs and medications reviewed Left-sided pigtail catheter in place Cultures and cytology pending Stable and on 2 L nasal cannula Continued on ceftriaxone and Flagyl Continued on bronchodilators We will continue to follow I have personally seen and examined the patient, performed the documentation and the assessment and plan as written. Number of minutes spent on the visit: 10 Dictation was produced using [email or web address] dictation software. Please excuse any grammatical, word or spelling errors.
[2024-10-18 16:33] LABS: Glucose,Whole Blood 364 mg/dL (70-110)
--- NOTE | 2024-10-18 17:38 | P.PN ---
Progress Note - Text Progress Note Date: 10/18/24 Chief Complaint: Short of breath 59-year-old patient who follows with visiting physicians. Recently in the hospital from September 26 through October 14. Patient is a resident of [facility]. Patient was then admitted for worsening respiratory status. Patient was admitted present LV function. Left-sided chest tube was placed. Significant amount of fluid was obtained. Patient eventually pulled out the tube. Bloody fluid cultures came back negative. She did receive a prolonged course of IV Zosyn and was discharged on a short course of Augmentin. Patient now again presented to [facility] increasing shortness of breath. X-ray showed reaccumulation of pleural fluid. Cardiothoracic surgery was consulted. Chest tube was placed. Last time patient received 4 courses of alteplase/dornase. Also seen by psychiatry Dr. Parson last time would make medication changes. Patient does have a legal guardian. October 18: Resting in bed. Left-sided pigtail catheter. About 40 cc output overnight shift. Oral intake about 50%. Fluid cultures pending. On IV ceftri axone and Flagyl. Active Medications Albuterol/Ipratropium (Ipratropium-Albuterol 3 Ml Neb) 3 ml INHALATION RT-Q4H PRN PRN Reason: Shortness Of Breath Or Wheezing Albuterol/Ipratropium (Ipratropium-Albuterol 3 Ml Neb) 3 ml INHALATION RT-QID [facility] Last Admin: 10/18/24 15:53 Dose: 3 ml Amantadine HCl (Amantadine Hcl 100 Mg Cap) 100 mg PO DAILY [facility] Last Admin: 10/18/24 09:00 Dose: 100 mg Aspirin (Aspirin 81 Mg) 81 mg PO DAILY [facility] Last Admin: 10/18/24 09:00 Dose: 81 mg Dextrose/Water (Dextrose 50% Syringe 50 Ml) 25 ml IVP PER PROTOCOL PRN; Protocol PRN Reason: Hypoglycemia Dextrose/Water (Dextrose 50% Syringe 50 Ml) 50 ml IVP PER PROTOCOL PRN; Protocol PRN Reason: Hypoglycemia Diltiazem HCl (Diltiazem Cd 120 Mg Cap.Er.24h) 120 mg PO DAILY [facility] Last Admin: 10/18/24 09:00 Dose: 120 mg Diltiazem HCl (Diltiazem Cd 240 Mg Cap.Er.24h) 240 mg PO DAILY [facility] Last Admin: 10/18/24 09:01 Dose: 240 mg Divalproex Sodium (Divalproex Er 500 Mg Tab.Er.24h) 500 mg PO TID [facility] Last Admin: 10/18/24 17:10 Dose: 500 mg Fluphenazine HCl (Fluphenazine 5 Mg Tab) 10 mg PO DAILY [facility] Last Admin: 10/18/24 09:00 Dose: 10 mg Fluticasone Propionate (Fluticasone Nasal 50mcg/[place] 16gm Btl) 2 spray EA NOSTRIL DAILY [facility] Last Admin: 10/18/24 09:06 Dose: 2 spray Folic Acid (Folic Acid 1 Mg Tab) 1 mg PO DAILY [facility] Last Admin: 10/18/24 09:01 Dose: 1 mg Guaifenesin/Dextromethorphan (Guaifenesin-Dm 600/30mg 1 Each Tab.Er.12h) 2 each PO Q12HR PRN PRN Reason: congestion/cough Hydroxyzine HCl (Hydroxyzine Hcl 25 Mg Tab) 25 mg PO DAILY PRN PRN Reason: Anxiety Metronidazole 500 mg/ IV (Solution) 100 mls @ 100 mls/hr IVPB BID [facility]; Protocol Last Admin: 10/18/24 09:01 Dose: 100 mls/hr Ceftriaxone Sodium 2 gm/ (Sodium Chloride) 50 mls @ 100 mls/hr IVPB Q24H [facility]; Protocol Last Admin: 10/18/24 17:12 Dose: 100 mls/hr Insulin Aspart (Insulin Aspart (Novolog) 100 Unit/Ml Vial) 0 unit SQ ACHS [facility]; Protocol Last Admin: 10/18/24 17:10 Dose: 8 unit Insulin Human Regular (Insulin Regular 100 Unit/Ml Vial (Im/Sq)) 15 unit SQ AC- BID [facility] Last Admin: 10/18/24 17:15 Dose: 15 unit Loratadine (Loratadine 10 Mg Tab) 10 mg PO DAILY [facility] Last Admin: 10/18/24 09:00 Dose: 10 mg Metoprolol Tartrate (Metoprolol Tartrate 50 Mg Tab) 50 mg PO BID [facility] Last Admin: 10/18/24 09:01 Dose: 50 mg Naloxone HCl (Naloxone 0.4 Mg/Ml 1 Ml Vial) 0.2 mg IV Q2M PRN PRN Reason: Opioid Reversal Naproxen (Naproxen 250 Mg Tab) 250 mg PO Q8HR PRN PRN Reason: Pain Last Admin: 10/17/24 22:21 Dose: 250 mg [place]-3 Acid Ethyl Esters [Lovaza] 1 Gm Capsule 1 gm PO BID [facility] Last Admin: 10/18/24 09:11 Dose: Not Given Olanzapine (Olanzapine 5 Mg Tab) 5 mg PO TID PRN PRN Reason: Severe Agitation Last Admin: 10/18/24 09:02 Dose: 5 mg Petrolatum (Zinc Oxide Paste (Z-Guard) 1 Applic) 1 applic TOPICAL DAILY PRN; Protocol PRN Reason: Wound Healing Last Admin: 10/16/24 18:19 Dose: 1 applic Quetiapine Fumarate (Quetiapine 400 Mg Tab) 600 mg PO HS [facility] Last Admin: 10/17/24 21:21 Dose: 600 mg Sodium Chloride (Sodium Chloride 0.65% Nasal [place] 44 Ml Btl) 2 spray NASAL QID PRN PRN Reason: Congestion Last Admin: 10/17/24 08:17 Dose: 2 spray Trazodone HCl (Trazodone Hcl 50 Mg Tab) 50 mg PO HS PRN PRN Reason: SLEEP Social history: Resident of [facility] On examination: VITAL SIGNS: 97.7, 66, 18, 129 x 72, 95% on 2 L GENERAL APPEARANCE: Resting in bed, comfortable HEENT: Normal external appearance of nose and ear. Oral cavity normal EYES: Pupils equal. Conjunctiva normal. NECK: JVD not raised. Mass not palpable. RESPIRATORY: Respiratory effort normal, decreased breath sounds. Left-sided chest drain CARDIOVASCULAR: First and second sounds normal. No edema. ABDOMEN: Soft. Liver and spleen not palpable. No tenderness. No mass palpable. PSYCHIATRY: Answering simple questions INVESTIGATIONS, reviewed in the clinical context: October 18: White count 5.6 hemoglobin 12.4 platelets 239 October 17, 2024: White count 4.2 hemoglobin 12.1 platelets 219 sodium 132 potassium 4.8 creatinine 0.59 EKG tracing personally reviewed by me-normal sinus rhythm. Rate 67 Chest x-ray film personally reviewed by [id number] pleural effusion Recent admission Pleural fluid culture: Negative Assessment and plan: -Recurrent left pleural effusion in a patient who recently had complicated pneumonia with pleural effusion. He had a chest tube on the recent admission. Initially it was placed on September 30. And pulled out on October 09. That he had pulled out. Patient was discharged on 3 L of oxygen. Left-sided chest tube to drain.: 40 cc output overnight Cardiothoracic and pulmonary following. ID following -Acute hypoxemic respiratory failure, secondary to pleural effusion/pneumonia On 3 L nasal cannula -Paroxysmal atrial fibrillation currently in sinus rhythm Cardizem CD 360 mg a day. Lopressor 25 mg twice daily Leukocytosis secondary to above Schizoaffective disorder -Bipolar disorder with anxiety/depression Desyrel. Depakote Seroquel 25 mg twice daily added for agitation. Doing much better -Diabetes mellitus, type II, chronically insulin, uncontrolled with hyperglycemia Regular insulin twice daily -Essential hypertension Cardizem CD 360 mg. Lopressor -Gastroesophageal reflux disease Pepcid as needed -Public guardian -Full code Continue current treatment plan. Follow with consultants. Past Medical History Past Medical History: Asthma, COPD, CVA/TIA, Diabetes Mellitus, Hypertension, Pneumonia, Thyroid Disorder Additional Past Medical History / Comment(s): Tremors History of Any Multi-Drug Resistant Organisms: None Reported Past Surgical History: Cholecystectomy Additional Past Surgical History / Comment(s): LEFT EYE Past Anesthesia/Blood Transfusion Reactions: No Reported Reaction Past Psychological History: Anxiety, Bipolar, Depression, Schizoaffective Disorder Smoking Status: Current every day smoker Past Alcohol Use History: None Reported Past Drug Use History: None Reported Additional Drug Use History / Comment(s): pt is a very poor historian
--- NOTE | 2024-10-18 18:00 | CA ---
Transthoracic Echo Report Name: Lucas Dumont Age: 59 Gender: M : 1965 Exam Date: 10/18/2024 08:18 Exam Location: [facility] Ht (in): 74 Wt (lb): 200 Ordering Physician: Jae Morin MD Attending/Referring Phys: Ball Racker Thu Limon RDCS Procedure CPT: Indications: History of atrial fibrillation Cardiac Hx: Technical Quality: Fair Contrast 1: Total Dose (mL): Contrast 2: Total Dose (mL): MEASUREMENTS (Male / Female) Normal Values 2D ECHO LV Diastolic Diameter PLAX 3.6 cm 4.2 - 5.9 / 3.9 - 5.3 cm LV Systolic Diameter PLAX 2.3 cm IVS Diastolic Thickness 1.0 cm 0.6 - 1.0 / 0.6 - 0.9 cm LVPW Diastolic Thickness 1.0 cm 0.6 - 1.0 / 0.6 - 0.9 cm LV Relative Wall Thickness 0.6 RV Internal Dim ED PLAX 1.3 cm LA Systolic Diameter LX 3.8 cm 3.0 - 4.0 / 2.7 - 3.8 cm LV Diastolic Volume MOD BP 39.1 cm??? 67 - 155 / 56 - 104 cm??? LV Systolic Volume MOD BP 19.8 cm??? 22 - 58 / 19 - 49 cm??? LV Ejection Fraction MOD BP 49.5 % >= 55 % LV Cardiac Index MOD BP 725.9 cm???/min???m??? LV Diastolic Volume MOD 4C 44.8 cm??? LV Systolic Volume MOD 4C 21.5 cm??? LV Ejection Fraction MOD 4C 52.0 % LV Cardiac Index MOD 4C 874.4 cm???/min???m??? LV Diastolic Length 4C 7.3 cm LV Systolic Length 4C 6.2 cm LV Diastolic Volume MOD 2C 32.8 cm??? LV Systolic Volume MOD 2C 16.8 cm??? LV Ejection Fraction MOD 2C 48.9 % LV Cardiac Index MOD 2C 602.2 cm???/min???m??? LV Diastolic Length 2C 7.0 cm LV Systolic Length 2C 6.7 cm LA Volume 41.1 cm??? 18 - 58 / 22 - 52 cm??? LA Volume Index 18.8 cm???/m??? 16 - 28 cm???/m??? M-MODE Aortic Root Diameter MM 3.0 cm LA Systolic Diameter MM 3.5 cm LA Ao Ratio MM 1.2 AV Cusp Separation MM 2.0 cm DOPPLER AV Peak Velocity 157.3 cm/s AV Peak Gradient 9.9 mmHg MV Area PHT 1.7 cm??? Mitral E Point Velocity 66.4 cm/s Mitral A Point Velocity 109.5 cm/s Mitral E to A Ratio 0.6 MV Deceleration Time 450.9 ms TR Peak Velocity 169.9 cm/s TR Peak Gradient 11.6 mmHg FINDINGS Left Ventricle Left ventricular ejection fraction is estimated at 55-60 %. Normal left ventricular systolic function with no obvious regional wall motion abnormalities. Left ventricular cavity size normal. Right Ventricle Normal right ventricular size and function. Right ventricular systolic pressure within normal limits. Right Atrium Normal right atrial size. Left Atrium Mild left atrial dilatation. Mitral Valve Structurally normal mitral valve. Mitral valve thickened. Mitral annular calcification. Trace mitral regurgitation. Aortic Valve Trileaflet aortic valve. No aortic valve stenosis or regurgitation.aortic valve sclerosis. Tricuspid Valve Structurally normal tricuspid valve. mild tricuspid regurgitation. No tricuspid stenosis. Pulmonic Valve Pulmonic valve not well visualized. No pulmonic stenosis. No pulmonic regurgitation. Pericardium No pericardial or pleural effusion. Aorta Normal size aortic root and proximal ascending aorta. CONCLUSIONS Technically difficult study. Normal left ventricular size and systolic function Limited Doppler study with trace mitral and mild tricuspid regurgitation Previewed by: Dr. Rebekah Devine MD (Electronically Signed) Final Date: 18 October 2024 17:58
[2024-10-18 19:51] LABS: Amylase, Fluid Source Pleural fluid; Amylase,Body Fluid 25 U/L; Glucose, BF Source Pleural fluid; Glucose, Body Fluid 274 mg/dL; T. Protein, Body Fluid Source Pleural fluid; Total Protein, Body Fluid >3600 mg/dL
[2024-10-18 20:14] LABS: LDH, Body Fluid Source Pleural fluid
[2024-10-18 20:37] LABS: Glucose,Whole Blood 349 mg/dL (70-110)
[2024-10-18] MEDS: traZODone HCL 50 MG TAB PO PRN (21:10)
--- NOTE | 2024-10-18 22:58 | P.PN ---
Subjective Progress Note Date: 10/18/24 Principal diagnosis: Reason for follow-up is left-sided empyema Patient is a 59-year-old male with a past medical history significant for diabetes mellitus hypertension CVA TIA COPD bipolar depression and Schizoaffective Disorder with recent admission to hospital with a left-sided empyema status post chest tube placement cultures were negative now presented back to the hospital worsening shortness of breath CT with evidence of left- sided loculated fluid requiring another chest tube placement. On today's evaluation that is 10/18/2024, the patient continues to be afebrile, the patient is on 2 L nasal oxygen and breathing comfortably, the Pt denies having any worsening left-sided chest pain or cough, the patient denies having any abdominal pain no vomiting or any diarrhea has been reported by the nursing staff. Patient white count is 5.6 pleural fluid cultures are pending Objective - Vital Signs Vital signs: Vital Signs Temp 97.7 F 10/18/24 14:00 Pulse 66 10/18/24 14:00 Resp 18 10/18/24 14:00 BP 129/72 10/18/24 14:00 Pulse Ox 95 10/18/24 14:00 FiO2 Intake & Output 10/17/24 10/18/24 10/18/24 18:59 06:59 18:59 Intake Total 150 Output Total 100 2020 Balance 50 -2020 Intake: Intake, IV Titration 150 Amount cefTRIAXone 2 gm In 50 Sodium Chloride 0.9% 50 ml @ 100 mls/hr IVPB Q24H [facility] Rx#:[id number] metroNIDAZOLE-NS PMX 500 100 mg In Saline 1 100ml.bag @ 100 mls/hr IVPB BID [facility] Rx#:[id number] Output: Chest Tube Drainage 100 20 Chest Tube Left Posterior 100 20 Chest Urine 2000 Other: Voiding Method External Catheter - Exam GENERAL DESCRIPTION: Middle-age male lying in bed in no distress RESPIRATORY SYSTEM: Unlabored breathing , decreased breath sounds at bases HEART: S1 S2 regular rate and rhythm , ABDOMEN: Soft , no tenderness EXTREMITIES: No edema feet - Labs CBC & Chem 7: 10/18/24 03:01 10/17/24 02:38 Labs: Abnormal Lab Results - Last 24 Hours (Table) 10/17/24 10/17/24 10/17/24 Range/Units 11:30 16:23 21:13 RBC (4.30-5.90) m/uL Hgb (13.0-17.5) gm/dL Hct (39.0-53.0) % Neutrophils # (Manual) (1.3-7.7) k/uL Monocytes # (Manual) (0-1.0) k/uL POC Glucose (mg/dL) 340 H 303 H (70-110) mg/dL Fluid Appearance Cloudy A (Clear) 10/18/24 10/18/24 10/18/24 Range/Units 03:01 06:15 11:28 RBC 3.99 L (4.30-5.90) m/uL Hgb 12.4 L (13.0-17.5) gm/dL Hct 36.7 L (39.0-53.0) % Neutrophils # (Manual) 0.56 L (1.3-7.7) k/uL Monocytes # (Manual) 2.58 H (0-1.0) k/uL POC Glucose (mg/dL) 162 H 225 H (70-110) mg/dL Fluid Appearance (Clear) Microbiology - Last 24 Hours (Table) 10/17/24 11:30 Acid Fast Bacilli Smear - Preliminary Pleural Fluid 10/17/24 11:30 Gram Stain - Preliminary Pleural Fluid Assessment and Plan (1) Empyema of lung Current Visit: Yes Status: Acute Code(s): J86.9 - PYOTHORAX WITHOUT FISTULA SNOMED Code(s): 65580797 Plan: 1patient is in the hospital with increasing shortness of breath in this patient with outpatient CT concerning for a left-sided fluid collection with gas concerning for empyema and this patient did have a similar presentation for the brain did have a chest tube placement culture were negative and the patient did received extensive IV antibiotic therapy and was advised oral antibiotics on DC, patient has been evaluated by CT surgery consulted IR for chest tube placement which has been completed fluid has been sent for the culture 2-patient will be treated with Rocephin and Flagyl while waiting for repeat culture to finalize Dictation was produced using [employer] software. please excuse any grammatical, word or spelling errors. Time with Patient: Less than 30
[2024-10-19 06:05] LABS: Glucose,Whole Blood 278 mg/dL (70-110)
--- NOTE | 2024-10-19 07:28 | XR ---
EXAMINATION TYPE: XR chest 1V portable DATE OF EXAM: 10/19/2024 6:03 AM COMPARISON: Chest radiographs from CLINICAL INDICATION: Male, 59 years old with history of Left pleural effusion; TECHNIQUE: XR chest 1V portable Frontal view of the chest. FINDINGS: Lungs/Pleura: Trace left pleural effusion. There is no evidence of right pleural effusion, focal cons olidation, or pneumothorax. Pulmonary vascularity: Unremarkable. Heart/mediastinum: Cardiomediastinal silhouette is unremarkable. Musculoskeletal: No acute osseous pathology. Other findings: None Lines/Tubes: Left thoracotomy tube is present without evidence of pneumothorax. IMPRESSION: Left thoracotomy tube with trace left pleural effusion. No pneumothorax. [facility], , 10/19/2024 7:25 AM
--- NOTE | 2024-10-19 11:10 | P.PN ---
Subjective Progress Note Date: 10/19/24 Principal diagnosis: Recurrent left pleural effusion, status post 4 alteplase/dornase pleural installations through his left chest pigtail catheter, his last alteplase/dornase treatment was on October 08, 2024. Past medical history significant for asthma, COPD, CVA, diabetes mellitus type 2, hypertension, thyroid disorder, GERD, anxiety, depression, bipolar disorder, and schizoa ffective disorder. The patient was seen and examined in follow[facility]up today [facility]. He is currently sitting up in bed, eating his breakfast, is awake, alert, oriented x 3 and is in no acute apparent distress. Denies any complaints of pain or shortness of breath at this time, although is complaining of feeling nervous. Oxygen saturations are 98% on room air and he is achieving 750 to 1000 mL on his incentive spirometry with encouragement. Left pleural pigtail catheter remains in place to low continuous wall suction -20 cm H2O. No airleak is present. No drainage in the last 24 hours. Chest x-ray results reviewed. Objective - Vital Signs Vital signs: Vital Signs Temp 98.2 F 10/19/24 07:15 Pulse 72 10/19/24 08:26 Resp 16 10/19/24 07:15 BP 110/72 10/19/24 07:15 Pulse Ox 98 10/19/24 07:15 FiO2 Intake & Output 10/18/24 10/19/24 10/19/24 18:59 06:59 18:59 Output Total 1300 1025 Balance -1300 -1025 Output: Chest Tube Drainage 0 Chest Tube Left Posterior 0 Chest Urine 1300 1025 Other: Voiding Method External Catheter # Voids 1 - Exam CONSTITUTIONAL: Appears comfortable, cooperative, no acute distress RESPIRATORY: Lungs sounds diminished to his bilateral bases, left greater than right. Respirations symmetrical, nonlabored. Currently on room air and oxygen saturation 98%. Able to achieve 750-1000 mL on his incentive spirometry. Strong nonproductive cough. CARDIOVASCULAR: S1, S2 present. Regular rate and rhythm, sinus rhythm on telemetry. Palpable peripheral pulses bilaterally. No edema present. No calf pain or tenderness noted. GASTROINTESTINAL: Abdomen soft, nontender, nondistended. Active bowel sounds present 4 quadrants. Tolerating diet. GENITOURINARY: Continues to void, external catheter in place. INTEGUMENTARY: Skin is warm and dry with no clubbing or cyanosis present. NEUROLOGIC: No focal deficits. MUSKULOSKELETAL: Able to move all extremities, strength equal bilaterally. PSYCHIATRIC: Alert and oriented to person place and time, flat affect, intact judgment and insight. INVASIVE LINES: Left chest pigtail catheter in place, connected to low continuous wall suction -20 cm H2O. No air leak is present. No drainage in the last 24 hours. - Allied health notes Allied health notes reviewed: nursing - Labs CBC & Chem 7: 10/18/24 03:01 10/17/24 02:38 Labs: Abnormal Lab Results - Last 24 Hours (Table) 10/18/24 10/18/24 10/18/24 Range/Units 11:28 16:32 20:35 POC Glucose (mg/dL) 225 H 364 H 349 H (70-110) mg/dL 10/19/24 Range/Units 06:04 POC Glucose (mg/dL) 278 H (70-110) mg/dL Microbiology - Last 24 Hours (Table) 10/17/24 11:30 Gram Stain - Preliminary Pleural Fluid Body Fluid Culture - Preliminary 10/17/24 11:30 Acid Fast Bacilli Smear - Preliminary Pleural Fluid - Imaging and Cardiology Chest x-ray: report reviewed, image reviewed Assessment and Plan Assessment: Recurrent left-sided pleural effusion, status post pigtail catheter placement on September 30, 2024 by interventional radiology, status post instillation fourth dose of alteplase/dornase last dose given on October 08, 2024 History of paroxysmal atrial fibrillation with rapid ventricular response Hypertension History of CVA Diabetes mellitus type 2, insulin-dependent Schizoaffective disorder History of bipolar disorder with anxiety/depression GERD Medical debility Plan: Continue left pleural pigtail in place to low continuous wall suction -20 cm H2O. Continue to monitor output. We will repeat a CT scan on Monday, October 21, 2024 to reevaluate his left pleural effusion. Bronchodilator management per pulmonary/critical care medicine recommendations. Encourage use of incentive spirometry 10 times every hour while awake. Increase activity as tolerated. Out of bed for all meals. Continue to monitor daily chest x-rays. Medical management other comorbidities per internal medicine, infectious disease and pulmonary/critical care medicine. More recommendations to follow based on patient's clinical course. Time with Patient: Less than 30
[2024-10-19 11:32] LABS: Glucose,Whole Blood 447 mg/dL (70-110)
--- NOTE | 2024-10-19 12:05 | P.PN ---
Subjective Progress Note Date: 10/19/24 Patient is a 59-year-old male with past medical history significant for pneumonia, diabetes mellitus, atrial fibrillation, CVA/TIA, hypertension, schizoaffective disorder, and resides at an [facility] home.. He had a recent hospitalization September 26 through October 14 for a loculated possibly parapneumonic left-sided pleural effusion, patient did have a pigtail catheter for placed thrombolytics September 30 which was inadvertently removed on October 09. This was an exudative effusion based on lights criteria. Microbiology was negative. Cytology also unremarkable. Patient did receive IV antibiotics while inpatient, and was discharged on p.o. Augmentin to be completed on outpatient basis. Previous follow-up chest x-ray showing only trace left-sided pleural effusion with atelectasis versus consolidative changes in the left lung base. Patient was eventually discharged back to his [facility] home. Patient transferred from [facility] yesterday evening. Apparently, has had progressively worsening shortness of breath over the last week. Chest CT at outside facility did not show any pulmonary embolism. There was posterior basilar left chest loculated fluid collection, with air-fluid level, measuring 6.1 x 9.5 x 11.3 cm. Suspicious for empyema. There is a moderate adjacent consolidation or atelectasis. Patchy groundglass opacities throughout much of the bilateral lower and posterior dependent upper lobes. Patchy consolidation involving the anterior lateral peripheral lingula as well as left base. Workup so far upon transfer includes a chest x-ray showing above-mentioned fluid c ollection with air-fluid level over the posterior spine on lateral view. Awaiting follow-up labs. Patient is currently being evaluated emergency department. He is on room air. Not in any respiratory distress. He is alert and has a flat affect. Responses to interview are short and does not volunteer information. He denies any shortness of breath, cough, chest pain, back pain, fever/chills. Patient was started on antibiotics in the ED. Current most recent vital signs: Temperature 98.3 F, heart rate 67 bpm, blood pressure 144/68 mmHg, nontachypneic, SpO2 is 99% on room air. The patient is seen today October 18, 2024 in follow-up on the regular medical floor. He is currently resting comfortably or back. Awake and alert in no acute distress. Maintaining O2 saturations up to 100% on 2 L/min per nasal cannula. Afebrile. Hemodynamically stable. Left-sided pigtail catheter was pl aced by interventional radiology yesterday. X-ray reveals residual left-sided atelectatic changes. No evidence of pneumothorax. Pigtail catheter placed to Pleur-evac and wall suction. Minimal output currently. Cultures pending. White count 5.6. Hemoglobin 12.4. Platelets 239. Glucose 162. He remains on bronchodilators, Rocephin, Flagyl. The patient is seen today October 19, 2024 in follow-up on the regular medical floor. He is awake and alert in no acute distress. Resting comfortably in bed. Denies any worsening shortness of breath, cough or congestion. He is maintaining good O2 saturations in the 90s on room air. He is continued on DuoNeb and elations, Mucinex. Antibiotics in the form of ceftriaxone and Flagyl. Left-sided pigtail catheter remains in place Lorvacs and wall suction. Approximately 140 mL of serosanguineous drainage out. Today's chest x-ray shows trace left pleural effusion. No evidence of pneumothorax. Pigtail catheter in good position. Pleural fluid reveals no malignancy cells identified. Cultures pending. Glucose 278. Objective - Vital Signs Vital signs: Vital Signs Temp 98.2 F 10/19/24 07:15 Pulse 72 10/19/24 08:26 Resp 16 10/19/24 07:15 BP 110/72 10/19/24 07:15 Pulse Ox 98 10/19/24 07:15 FiO2 Intake & Output 10/18/24 10/19/24 10/19/24 18:59 06:59 18:59 Output Total 1300 1025 Balance -1300 -1025 Output: Chest Tube Drainage 0 Chest Tube Left Posterior 0 Chest Urine 1300 1025 Other: Voiding Method External Catheter # Voids 1 - Exam GENERAL EXAM: Alert, awake 59-year-old male, flat affect, resting in bed, on 2 L nasal cannula, not in any distress. HEAD: Normocephalic and atraumatic EYES: Normal reaction of pupils, equal size. NOSE: Clear with pink turbinates. THROAT: No erythema or exudates. NECK: No masses, no JVD. CHEST: No chest wall deformity. Left-sided pigtail catheter in place to Pleur- evac and wall suction. LUNGS: Equal air entry with posterior left chest inspiratory crackles. CVS: S1 and S2 normal with no audible murmur, regular rhythm. No extra heart sounds ABDOMEN: No hepatosplenomegaly, active bowel sounds, no guarding or rigidity. SPINE: No scoliosis or deformity SKIN: No rashes CENTRAL NERVOUS SYSTEM: No focal deficits, tone is normal in all 4 extremities. EXTREMITIES: There is no peripheral edema, clubbing, or cyanosis. Peripheral pulses are intact. - Labs CBC & Chem 7: 10/18/24 03:01 10/17/24 02:38 Labs: Abnormal Lab Results - Last 24 Hours (Table) 10/18/24 10/18/24 10/19/24 Range/Units 16:32 20:35 06:04 POC Glucose (mg/dL) 364 H 349 H 278 H (70-110) mg/dL 10/19/24 Range/Units 11:31 POC Glucose (mg/dL) 447 H (70-110) mg/dL Microbiology - Last 24 Hours (Table) 10/17/24 11:30 Gram Stain - Preliminary Pleural Fluid Body Fluid Culture - Preliminary 10/17/24 11:30 Acid Fast Bacilli Smear - Preliminary Pleural Fluid Assessment and Plan Assessment: Acute dyspnea, CT chest done at outside facility showing posterior basilar left chest fluid collection, loculated, with air-fluid level, measuring 6.1 x 9.5 x 11.3 cm. Suspicious for empyema. There is a adjacent consolidation or atelectasis. Patchy groundglass opacities throughout much of the bilateral lower and posterior dependent upper lobes. Patchy consolidation involving the anterior lateral peripheral lingula, as well as, left base. On his previous adm ission he did have a left-sided pigtail catheter in place that was inadvertently removed. This admission he had another pigtail catheter placed October 17, 2024. Remains on ceftriaxone and Flagyl Complicated, loculated parapneumonic left-sided effusion, status post pigtail catheter placement on 09/30/2024, inadvertently removed on 10/09/2023. Exudative effusion based on Lights criteria and fluid analysis. Microbiology was negative. Cytology also unremarkable. Patient did receive IV antibiotics while inpatient, and was discharged with PO antibiotics to be completed outpatient. Ultimately, discharged back to [facility] home on October 14 History of COVID-19 infection History of atrial fibrillation, currently in normal sinus mechanism Diabetes mellitus, type II, with hyperglycemia History of mild intermittent chronic bronchial asthma. History of CVA. Hypertension. Gastroesophageal reflux disease. History of schizoaffective disorder/bipolar disorder/anxiety/depression [facility] resident. Plan: The patient was seen and evaluated Medications reviewed Left-sided pigtail catheter in place Cultures pending Remains on Flagyl and Rocephin Cytology negative for malignancy Stable and on room air oxygen Continued on bronchodilators We will continue to follow I have personally seen and examined the patient, performed the documentation and the assessment and plan as written. Number of minutes spent on the visit: 10 Dictation was produced using [email or web address] dictation software. Please excuse any grammatical, word or spelling errors.
--- NOTE | 2024-10-19 14:38 | CT ---
EXAMINATION TYPE: CT chest wo con DATE OF EXAM: 10/19/2024 2:08 PM COMPARISON: 10/05/2024 CLINICAL INDICATION: Male, 59 years old with history of Evaluate left pleural ef fusion; PHH, tom TECHNIQUE: Multiple axial images were obtained through the chest. Sagittal and coronal reformats were created for review. MIP was performed on a separate workstation. Contrast used: mL of (None if empty) Oral contrast used: (None if empty) CT DLP: 345.3 mGycm, Automated exposure control for dose reduction was used. FINDINGS: LUNGS/ PLEURA: Left pleural effusion with pigtail catheter in appropriate position as is small pocket of fluid. The pigtail is terminating in the lung. Scattered groundglass opacities throughout the [place] gs most pronounced in the upper lungs. These opacities have improved from prior. AIRWAY: Patent and unremarkable. HEART: Size within normal limits.Atherosclerosis of the arterial vasculature. MEDIASTINUM: No gross evidence of adenopathy. VASCULATURE: No aortic aneurysm. MUSCULOSKELETAL: Mild disc degeneration changes are present throughout the thoracolumbar spine. SOFT TISSUES/LYMPH NODES: Unremarkable. LOWER NECK: No significant findings. UPPER ABDOMEN: Gallbladder surgically absent. IMPRESSION: 1. Left lower lung pigtail catheter terminating in the lung parenchyma removal and replacement recom mended. This is not the case on 10/05/2024 where it appeared to be in the pleural cavity. Correlate for migration since last exam on 425. 2. Contrast passes and upper lungs correlate for atypical pneumonia. These are improving from prior on 10/05/2024. [facility], , 10/19/2024 2:36 PM
--- NOTE | 2024-10-19 14:50 | P.PN ---
Progress Note - Text Progress Note Date: 10/19/24 Chief Complaint: Short of breath 59-year-old patient who follows with visiting physicians. Recently in the hospital from September 26 through October 14. Patient is a resident of [facility]. Patient was then admitted for worsening respiratory status. Patient was admitted present LV function. Left-sided chest tube was placed. Significant amount of fluid was obtained. Patient eventually pulled out the tube. Bloody fluid cultures came back negative. She did receive a prolonged course of IV Zosyn and was discharged on a short course of Augmentin. Patient now again presented to [facility] increasing shortness of breath. X-ray showed reaccumulation of pleural fluid. Cardiothoracic surgery was consulted. Chest tube was placed. Last time patient received 4 courses of alteplase/dornase. Also seen by psychiatry Dr. Parson last time would make medication changes. Patient does have a legal guardian. October 18: Resting in bed. Left-sided pigtail catheter. About 40 cc output overnight shift. Oral intake about 50%. Fluid cultures pending. On IV ceftri axone and Flagyl. October 19: Minimal output overnight through the pigtail catheter. Will order CT scan to see how much fluid is present. Patient did refuse to take couple of his medications. Most discussed with psychiatry. Psychiatry consulted. Eating fair. CT scan is showing improvement of the pleural effusion. Small pocket of fluid. Cardiothoracic team following. Active Medications Albuterol/Ipratropium (Ipratropium-Albuterol 3 Ml Neb) 3 ml INHALATION RT-Q4H PRN PRN Reason: Shortness Of Breath Or Wheezing Albuterol/Ipratropium (Ipratropium-Albuterol 3 Ml Neb) 3 ml INHALATION RT-QID [facility] Last Admin: 10/19/24 12:02 Dose: 3 ml Amantadine HCl (Amantadine Hcl 100 Mg Cap) 100 mg PO DAILY [facility] Last Admin: 10/19/24 09:12 Dose: 100 mg Aspirin (Aspirin 81 Mg) 81 mg PO DAILY [facility] Last Admin: 10/19/24 09:10 Dose: 81 mg Dextrose/Water (Dextrose 50% Syringe 50 Ml) 25 ml IVP PER PROTOCOL PRN; Protocol PRN Reason: Hypoglycemia Dextrose/Water (Dextrose 50% Syringe 50 Ml) 50 ml IVP PER PROTOCOL PRN; Protocol PRN Reason: Hypoglycemia Diltiazem HCl (Diltiazem Cd 120 Mg Cap.Er.24h) 120 mg PO DAILY [facility] Last Admin: 10/19/24 09:13 Dose: 120 mg Diltiazem HCl (Diltiazem Cd 240 Mg Cap.Er.24h) 240 mg PO DAILY [facility] Last Admin: 10/19/24 09:13 Dose: 240 mg Divalproex Sodium (Divalproex Er 500 Mg Tab.Er.24h) 500 mg PO TID [facility] Last Admin: 10/19/24 11:21 Dose: 500 mg Fluphenazine HCl (Fluphenazine 5 Mg Tab) 10 mg PO DAILY [facility] Last Admin: 10/19/24 09:13 Dose: 10 mg Fluticasone Propionate (Fluticasone Nasal 50mcg/[place] 16gm Btl) 2 spray EA NOSTRIL DAILY [facility] Last Admin: 10/19/24 09:27 Dose: Not Given Folic Acid (Folic Acid 1 Mg Tab) 1 mg PO DAILY [facility] Last Admin: 10/19/24 09:10 Dose: 1 mg Guaifenesin/Dextromethorphan (Guaifenesin-Dm 600/30mg 1 Each Tab.Er.12h) 2 each PO Q12HR PRN PRN Reason: congestion/cough Hydroxyzine HCl (Hydroxyzine Hcl 25 Mg Tab) 25 mg PO DAILY PRN PRN Reason: Anxiety Metronidazole 500 mg/ IV (Solution) 100 mls @ 100 mls/hr IVPB BID [facility]; Protocol Last Admin: 10/19/24 09:12 Dose: 100 mls/hr Ceftriaxone Sodium 2 gm/ (Sodium Chloride) 50 mls @ 100 mls/hr IVPB Q24H [facility]; Protocol Last Admin: 10/18/24 17:12 Dose: 100 mls/hr Insulin Aspart (Insulin Aspart (Novolog) 100 Unit/Ml Vial) 0 unit SQ ACHS [facility]; Protocol Last Admin: 10/19/24 12:12 Dose: 12 unit Insulin Human Regular (Insulin Regular 100 Unit/Ml Vial (Im/Sq)) 15 unit SQ AC- BID [facility] Last Admin: 10/19/24 06:43 Dose: 15 unit Loratadine (Loratadine 10 Mg Tab) 10 mg PO DAILY [facility] Last Admin: 10/19/24 09:10 Dose: 10 mg Metoprolol Tartrate (Metoprolol Tartrate 50 Mg Tab) 50 mg PO BID [facility] Last Admin: 10/19/24 09:10 Dose: 50 mg Naloxone HCl (Naloxone 0.4 Mg/Ml 1 Ml Vial) 0.2 mg IV Q2M PRN PRN Reason: Opioid Reversal Naproxen (Naproxen 250 Mg Tab) 250 mg PO Q8HR PRN PRN Reason: Pain Last Admin: 10/19/24 05:57 Dose: 250 mg [place]-3 Acid Ethyl Esters [Lovaza] 1 Gm Capsule 1 gm PO BID [facility] Last Admin: 10/19/24 09:12 Dose: Not Given Olanzapine (Olanzapine 5 Mg Tab) 5 mg PO TID PRN PRN Reason: Severe Agitation Last Admin: 10/18/24 09:02 Dose: 5 mg Petrolatum (Zinc Oxide Paste (Z-Guard) 1 Applic) 1 applic TOPICAL DAILY PRN; Protocol PRN Reason: Wound Healing Last Admin: 10/16/24 18:19 Dose: 1 applic Quetiapine Fumarate (Quetiapine 400 Mg Tab) 600 mg PO HS [facility] Last Admin: 10/18/24 21:10 Dose: 600 mg Sodium Chloride (Sodium Chloride 0.65% Nasal [place] 44 Ml Btl) 2 spray NASAL QID PRN PRN Reason: Congestion Last Admin: 10/19/24 09:14 Dose: 2 spray Trazodone HCl (Trazodone Hcl 50 Mg Tab) 50 mg PO HS PRN PRN Reason: SLEEP Last Admin: 10/18/24 21:10 Dose: 50 mg Social history: Resident of [facility] On examination: VITAL SIGNS: 98.2, 71, 16, 110 x 72, 98% room air GENERAL APPEARANCE: Resting in bed, comfortable HEENT: Normal external appearance of nose and ear. Oral cavity normal EYES: Pupils equal. Conjunctiva normal. NECK: JVD not raised. Mass not palpable. RESPIRATORY: Respiratory effort normal, decreased breath sounds. Left-sided chest drain CARDIOVASCULAR: First and second sounds normal. No edema. ABDOMEN: Soft. Liver and spleen not palpable. No tenderness. No mass palpable. PSYCHIATRY: Answering simple questions INVESTIGATIONS, reviewed in the clinical context: CT scan chest [October 19] much smaller pocket of pleural fluid October 18: White count 5.6 hemoglobin 12.4 platelets 239 October 17, 2024: White count 4.2 hemoglobin 12.1 platelets 219 sodium 132 potassium 4.8 creatinine 0.59 EKG tracing personally reviewed by me-normal sinus rhythm. Rate 67 Chest x-ray film personally reviewed by [id number] pleural effusion Recent admission Pleural fluid culture: Negative Assessment and plan: -Recurrent left pleural effusion in a patient who recently had complicated pneumonia with pleural effusion. He had a chest tube on the recent admission. Initially it was placed on September 30. And pulled out on October 09. That he had pulled out. Patient was discharged on 3 L of oxygen. Left-sided chest tube to drain.: Normal output Cardiothoracic and pulmonary following. Repeat CT scan chest showing a very small pocket of fluid now. -Acute hypoxemic respiratory failure, secondary to pleural effusion/pneumonia: Improved 98% room air -Paroxysmal atrial fibrillation currently in sinus rhythm Cardizem CD 360 mg a day. Lopressor 25 mg twice daily Leukocytosis secondary to above Schizoaffective disorder -Bipolar disorder with anxiety/depression Desyrel. Depakote Seroquel 25 mg twice daily added for agitation. Patient refusing some medications. Wants to discuss with psychiatry. -Diabetes mellitus, type II, chronically insulin, uncontrolled with hyperglycemia Regular insulin twice daily -Essential hypertension Cardizem CD 360 mg. Lopressor -Gastroesophageal reflux disease Pepcid as needed -Public guardian -Full code CT chest results to be followed by cardiothoracic team. Patient wants to talk to psychiatry through for his medications. Consulted. Past Medical History Past Medical History: Asthma, COPD, CVA/TIA, Diabetes Mellitus, Hypertension, Pneumonia, Thyroid Disorder Additional Past Medical History / Comment(s): Tremors History of Any Multi-Drug Resistant Organisms: None Reported Past Surgical History: Cholecystectomy Additional Past Surgical History / Comment(s): LEFT EYE Past Anesthesia/Blood Transfusion Reactions: No Reported Reaction Past Psychological History: Anxiety, Bipolar, Depression, Schizoaffective Disorder Smoking Status: Current every day smoker Past Alcohol Use History: None Reported Past Drug Use History: None Reported Additional Drug Use History / Comment(s): pt is a very poor historian
[2024-10-19] MEDS: LACTATED RINGERS 500 ML IV ONE (16:07)
[2024-10-19 16:15] LABS: Glucose,Whole Blood 437 mg/dL (70-110)
--- NOTE | 2024-10-19 17:23 | P.PN ---
Subjective Progress Note Date: 10/19/24 Principal diagnosis: bipolar depressed I talked to the staff and very briefly with the patient and he basically wants to take all of his Depakote at night because he sedated all day long. He has been in the hospital and on the Depakote long enough to taking once a day should work fine and is actually a better way to deliver it. So I strongly suggest we change it over starting tomorrow to 1500 at night there was some debate as to patient's weight but 1500 should be a good level I suggest that we get a blood level of Depakote just before the evening dose to make sure that he has enough. The degree of his sedation suggests that it's a good strong dose and I think he takes it all at night he'll tolerate it during the day with better side effects. No other suggestion at this time Objective - Vital Signs Vital signs: Vital Signs Temp 98.2 F 10/19/24 07:15 Pulse 72 10/19/24 16:06 Resp 20 10/19/24 15:20 BP 120/71 10/19/24 16:07 Pulse Ox 98 10/19/24 07:15 FiO2 Intake & Output 10/18/24 10/19/24 10/19/24 18:59 06:59 18:59 Intake Total 200 Output Total 1300 1025 Balance -1300 -1025 200 Intake: Oral 200 Output: Chest Tube Drainage 0 Chest Tube Left Posterior 0 Chest Urine 1300 1025 Other: Voiding Method External Catheter External Catheter # Voids 1 - Labs CBC & Chem 7: 10/18/24 03:01 10/17/24 02:38 Labs: Abnormal Lab Results - Last 24 Hours (Table) 10/18/24 10/19/24 10/19/24 Range/Units 20:35 06:04 11:31 POC Glucose (mg/dL) 349 H 278 H 447 H (70-110) mg/dL 10/19/24 Range/Units 16:12 POC Glucose (mg/dL) 437 H (70-110) mg/dL Microbiology - Last 24 Hours (Table) 10/17/24 11:30 Gram Stain - Preliminary Pleural Fluid Body Fluid Culture - Preliminary
[2024-10-19] MEDS: INSULIN ASPART (NovoLOG) 100 UNIT/ML VIAL SQ ONE (18:09)
[2024-10-19 21:21] LABS: Glucose,Whole Blood 329 mg/dL (70-110)
--- NOTE | 2024-10-19 22:07 | P.PN ---
Subjective Progress Note Date: 10/19/24 Principal diagnosis: Reason for follow-up is left-sided empyema Patient is a 59-year-old male with a past medical history significant for diabetes mellitus hypertension CVA TIA COPD bipolar depression and Schizoaffective Disorder with recent admission to hospital with a left-sided empyema status post chest tube placement cultures were negative now presented back to the hospital worsening shortness of breath CT with evidence of left- sided loculated fluid requiring another chest tube placement. On today's evaluation that is 10/19/2024, patient did not have any fever and is currently breathing comfortably on room air in no distress no vomiting diarrhea and the changes reported. Patient did not have any CBC or BMP done cultures are currently pending Objective - Vital Signs Vital signs: Vital Signs Temp 98.2 F 10/19/24 07:15 Pulse 72 10/19/24 12:13 Resp 16 10/19/24 12:48 BP 110/72 10/19/24 07:15 Pulse Ox 98 10/19/24 07:15 FiO2 Intake & Output 10/18/24 10/19/24 10/19/24 18:59 06:59 18:59 Intake Total 200 Output Total 1300 1025 Balance -1300 -1025 200 Intake: Oral 200 Output: Chest Tube Drainage 0 Chest Tube Left Posterior 0 Chest Urine 1300 1025 Other: Voiding Method External Catheter External Catheter # Voids 1 - Exam GENERAL DESCRIPTION: Middle-age male lying in bed in no distress RESPIRATORY SYSTEM: Unlabored breathing , decreased breath sounds at bases HEART: S1 S2 regular rate and rhythm , ABDOMEN: Soft , no tenderness EXTREMITIES: No edema feet - Labs CBC & Chem 7: 10/18/24 03:01 10/17/24 02:38 Labs: Abnormal Lab Results - Last 24 Hours (Table) 10/18/24 10/18/24 10/19/24 Range/Units 16:32 20:35 06:04 POC Glucose (mg/dL) 364 H 349 H 278 H (70-110) mg/dL 10/19/24 Range/Units 11:31 POC Glucose (mg/dL) 447 H (70-110) mg/dL Microbiology - Last 24 Hours (Table) 10/17/24 11:30 Gram Stain - Preliminary Pleural Fluid Body Fluid Culture - Preliminary Assessment and Plan (1) Empyema of lung Current Visit: Yes Status: Acute Code(s): J86.9 - PYOTHORAX WITHOUT FISTULA SNOMED Code(s): 62780100 Plan: 1patient is in the hospital with increasing shortness of breath in this patient with outpatient CT concerning for a left-sided fluid collection with gas concerning for empyema and this patient did have a similar presentation for the brain did have a chest tube placement culture were negative and the patient did received extensive IV antibiotic therapy and was advised oral antibiotics on DC, patient has been evaluated by CT surgery consulted IR for chest tube placement which has been completed fluid has been sent for the culture which are currently pending 2-patient is afebrile patient will be treated with Rocephin and Flagyl while waiting for repeat culture to finalize Dictation was produced using [employer] dictation software. please excuse any grammatical, word or spelling errors. Time with Patient: Less than 30
[2024-10-20 00:31] LABS: Glucose,Whole Blood 184 mg/dL (70-110)
[2024-10-20 06:26] LABS: Glucose,Whole Blood 223 mg/dL (70-110)
--- NOTE | 2024-10-20 11:09 | P.PN ---
Subjective Progress Note Date: 10/20/24 Principal diagnosis: Recurrent left pleural effusion, status post 4 alteplase/dornase pleural installations through his left chest pigtail catheter, his last alteplase/dornase treatment was on October 08, 2024. Past medical history significant for asthma, COPD, CVA, diabetes mellitus type 2, hypertension, thyroid disorder, GERD, anxiety, depression, bipolar disorder, and schizoa ffective disorder. The patient was seen and examined in follow[facility] today [facility]. He is currently sitting up in bed, is awake, alert, oriented x 3 and is in no acute apparent distress. Denies any complaints of pain or shortness of breath at this time. Oxygen saturations are 95% on room air and he is achieving 750 to 1000 mL on his incentive spirometry with encouragement. Left pleural pigtail catheter remains in place to low continuous wall suction -20 cm H2O. No airleak is present. No drainage in the last [address] scan of the chest was completed yesterday which demonstrated a left pleural effusion with pigtail catheter in appropriate position, small pocket of fluid, scattered groundglass opacities throughout the lungs most pronounced in the upper lungs. Objective - Vital Signs Vital signs: Vital Signs Temp 97.9 F 10/20/24 07:03 Pulse 58 L 10/20/24 09:00 Resp 17 10/20/24 07:03 BP 110/60 10/20/24 07:03 Pulse Ox 95 10/20/24 07:03 FiO2 Intake & Output 10/19/24 10/20/24 10/20/24 18:59 06:59 18:59 Intake Total 400 Balance 400 Intake: Oral 400 Other: Voiding Method External Catheter Incontinent # Voids 300 1 - Exam CONSTITUTIONAL: Appears comfortable, cooperative, no acute distress RESPIRATORY: Lungs sounds diminished to his bilateral bases, left greater than right. Respirations symmetrical, nonlabored. Currently on room air and oxygen saturation 95%. Able to achieve 750-1000 mL on his incentive spirometry. Strong nonproductive cough. CARDIOVASCULAR: S1, S2 present. Regular rate and rhythm. Palpable peripheral pulses bilaterally. No edema present. No calf pain or tenderness noted. GASTROINTESTINAL: Abdomen soft, nontender, nondistended. Active bowel sounds present 4 quadrants. Tolerating diet. GENITOURINARY: Continues to void, external catheter in place. INTEGUMENTARY: Skin is warm and dry with no clubbing or cyanosis present. NEUROLOGIC: No focal deficits. MUSKULOSKELETAL: Able to move all extremities, strength equal bilaterally. PSYCHIATRIC: Alert and oriented to person place and time, flat affect, intact judgment and insight. INVASIVE LINES: Left chest pigtail catheter in place, connected to low continuous wall suction -20 cm H2O. No air leak is present. No drainage in the last 24 hours. - Allied health notes Allied health notes reviewed: nursing - Labs CBC & Chem 7: 10/18/24 03:01 10/17/24 02:38 Labs: Abnormal Lab Results - Last 24 Hours (Table) 10/19/24 10/19/24 10/19/24 Range/Units 11:31 16:12 21:19 POC Glucose (mg/dL) 447 H 437 H 329 H (70-110) mg/dL 10/20/24 10/20/24 Range/Units 00:28 06:24 POC Glucose (mg/dL) 184 H 223 H (70-110) mg/dL Microbiology - Last 24 Hours (Table) 10/17/24 11:30 Anaerobic Culture - Preliminary Pleural Fluid 10/17/24 11:30 Gram Stain - Preliminary Pleural Fluid Body Fluid Culture - Preliminary - Imaging and Cardiology CT scan - chest: report reviewed, image reviewed Assessment and Plan Assessment: Recurrent left-sided pleural effusion, status post pigtail catheter placement on September 30, 2024 by interventional radiology, status post instillation fourth dose of alteplase/dornase last dose given on October 08, 2024 History of paroxysmal atrial fibrillation with rapid ventricular response Hypertension History of CVA Diabetes mellitus type 2, insulin-dependent Schizoaffective disorder History of bipolar disorder with anxiety/depression GERD Medical debility Plan: We remove his left pigtail catheter. Bronchodilator management per pulmonary/critical care medicine recommendations. Encourage use of incentive spirometry 10 times every hour while awake. Increase activity as tolerated. Out of bed for all meals. Continue to monitor daily chest x-rays. Medical management other comorbidities per internal medicine, infectious disease and pulmonary/critical care medicine. More recommendations to follow based on patient's clinical course. Time with Patient: Less than 30
[2024-10-20 11:22] LABS: Glucose,Whole Blood 343 mg/dL (70-110)
--- NOTE | 2024-10-20 12:32 | P.PN ---
Subjective Progress Note Date: 10/20/24 Patient is a 59-year-old male with past medical history significant for pneumonia, diabetes mellitus, atrial fibrillation, CVA/TIA, hypertension, schizoaffective disorder, and resides at an [facility] home.. He had a recent hospitalization September 26 through October 14 for a loculated possibly parapneumonic left-sided pleural effusion, patient did have a pigtail catheter for placed thrombolytics September 30 which was inadvertently removed on October 09. This was an exudative effusion based on lights criteria. Microbiology was negative. Cytology also unremarkable. Patient did receive IV antibiotics while inpatient, and was discharged on p.o. Augmentin to be completed on outpatient basis. Previous follow-up chest x-ray showing only trace left-sided pleural effusion with atelectasis versus consolidative changes in the left lung base. Patient was eventually discharged back to his [facility]. Patient transferred from [facility] yesterday evening. Apparently, has had progressively worsening shortness of breath over the last week. Chest CT at outside facility did not show any pulmonary embolism. There was posterior basilar left chest loculated fluid collection, with air-fluid level, measuring 6.1 x 9.5 x 11.3 cm. Suspicious for empyema. There is a moderate adjacent consolidation or atelectasis. Patchy groundglass opacities throughout much of the bilateral lower and posterior dependent upper lobes. Patchy consolidation involving the anterior lateral peripheral lingula as well as left base. Workup so far upon transfer includes a chest x-ray showing above-mentioned fluid c ollection with air-fluid level over the posterior spine on lateral view. Awaiting follow-up labs. Patient is currently being evaluated emergency department. He is on room air. Not in any respiratory distress. He is alert and has a flat affect. Responses to interview are short and does not volunteer information. He denies any shortness of breath, cough, chest pain, back pain, fever/chills. Patient was started on antibiotics in the ED. Current most recent vital signs: Temperature 98.3 F, heart rate 67 bpm, blood pressure 144/68 mmHg, nontachypneic, SpO2 is 99% on room air. The patient is seen today October 18, 2024 in follow-up on the regular medical floor. He is currently resting comfortably or back. Awake and alert in no acute distress. Maintaining O2 saturations up to 100% on 2 L/min per nasal cannula. Afebrile. Hemodynamically stable. Left-sided pigtail catheter was pl aced by interventional radiology yesterday. X-ray reveals residual left-sided atelectatic changes. No evidence of pneumothorax. Pigtail catheter placed to Pleur-evac and wall suction. Minimal output currently. Cultures pending. White count 5.6. Hemoglobin 12.4. Platelets 239. Glucose 162. He remains on bronchodilators, Rocephin, Flagyl. The patient is seen today October 19, 2024 in follow-up on the regular medical floor. He is awake and alert in no acute distress. Resting comfortably in bed. Denies any worsening shortness of breath, cough or congestion. He is maintaining good O2 saturations in the 90s on room air. He is continued on DuoNeb and elations, Mucinex. Antibiotics in the form of ceftriaxone and Flagyl. Left-sided pigtail catheter remains in place Lorvacs and wall suction. Approximately 140 mL of serosanguineous drainage out. Today's chest x-ray shows trace left pleural effusion. No evidence of pneumothorax. Pigtail catheter in good position. Pleural fluid reveals no malignancy cells identified. Cultures pending. Glucose 278. The patient is seen today October 20, 2024 in follow-up on the regular medical floor. He is awake and alert in no acute distress. Resting fairly comfortably in bed. Denies any worsening shortness of breath, cough or congestion. Left- sided pigtail catheter remains in place. No significant output in the past [address] scan of the chest yesterday revealed left lower lung pigtail catheter terminating in the lung parenchyma, removal and replacement recommended. Fluid cultures revealed no growth thus far. Glucose 223. Remains on DuoNeb inhalations. Continued on ceftriaxone and Flagyl. Objective - Vital Signs Vital signs: Vital Signs Temp 97.9 F 10/20/24 07:03 Pulse 76 10/20/24 12:00 Resp 17 10/20/24 07:03 BP 110/60 10/20/24 07:03 Pulse Ox 95 10/20/24 07:03 FiO2 Intake & Output 10/19/24 10/20/24 10/20/24 18:59 06:59 18:59 Intake Total 400 Balance 400 Intake: Oral 400 Other: Voiding Method External Catheter Incontinent # Voids 300 1 - Exam GENERAL EXAM: Alert, cooperative 59-year-old male, flat affect, resting in bed, on room air, not in any distress. HEAD: Normocephalic and atraumatic EYES: Normal reaction of pupils, equal size. NOSE: Clear with pink turbinates. THROAT: No erythema or exudates. NECK: No masses, no JVD. CHEST: Left-sided pigtail catheter in place to Pleur-evac and wall suction. No leak. No output. LUNGS: Equal air entry with posterior left chest inspiratory crackles. CVS: S1 and S2 normal with no audible murmur, regular rhythm. No extra heart sounds ABDOMEN: No hepatosplenomegaly, active bowel sounds, no guarding or rigidity. SPINE: No scoliosis or deformity SKIN: No rashes CENTRAL NERVOUS SYSTEM: No focal deficits, tone is normal in all 4 extremities. EXTREMITIES: There is no peripheral edema, clubbing, or cyanosis. Peripheral pulses are intact. - Labs CBC & Chem 7: 10/18/24 03:01 10/17/24 02:38 Labs: Abnormal Lab Results - Last 24 Hours (Table) 10/19/24 10/19/24 10/20/24 Range/Units 16:12 21:19 00:28 POC Glucose (mg/dL) 437 H 329 H 184 H (70-110) mg/dL 10/20/24 10/20/24 Range/Units 06:24 11:20 POC Glucose (mg/dL) 223 H 343 H (70-110) mg/dL Microbiology - Last 24 Hours (Table) 10/17/24 11:30 Anaerobic Culture - Preliminary Pleural Fluid 10/17/24 11:30 Gram Stain - Preliminary Pleural Fluid Body Fluid Culture - Preliminary Assessment and Plan Assessment: Acute dyspnea, CT chest done at outside facility showing posterior basilar left chest fluid collection, loculated, with air-fluid level, measuring 6.1 x 9.5 x 11.3 cm. Suspicious for empyema. There is a adjacent consolidation or atelectasis. Patchy groundglass opacities throughout much of the bilateral lower and posterior dependent upper lobes. Patchy consolidation involving the anterior lateral peripheral lingula, as well as, left base. On his previous admission he did have a left-sided pigtail catheter in place that was inadvertently removed. This admission he had another pigtail catheter placed October 17, 2024. Remains on ceftriaxone and Flagyl Complicated, loculated parapneumonic left-sided effusion, status post pigtail catheter placement on 09/30/2024, inadvertently removed on 10/09/2023. Exudative effusion based on Lights criteria and fluid analysis. Microbiology was negative. Cytology also unremarkable. Patient did receive IV antibiotics while inpatient, and was discharged with PO antibiotics to be completed outpatient. Ultimately, discharged back to [facility] home on October 14 History of COVID-19 infection History of atrial fibrillation, currently in normal sinus mechanism Diabetes mellitus, type II, with hyperglycemia History of mild intermittent chronic bronchial asthma. History of CVA. Hypertension. Gastroesophageal reflux disease. History of schizoaffective disorder/bipolar disorder/anxiety/depression [facility] resident. Plan: The patient was seen and evaluated Imaging and medications reviewed Currently stable and on room air Left-sided pigtail catheter in place CT services following Antibiotics per ID service Continued on bronchodilators We will continue to follow I have personally seen and examined the patient, performed the documentation and the assessment and plan as written. Number of minutes spent on the visit: 10 Dictation was produced using [employer] dictation software. Please excuse any grammatical, word or spelling errors.
[2024-10-20 13:14] LABS: Glucose,Whole Blood 377 mg/dL (70-110)
--- NOTE | 2024-10-20 15:15 | P.PN ---
Subjective Progress Note Date: 10/20/24 Principal diagnosis: Reason for follow-up is left-sided empyema Patient is a 59-year-old male with a past medical history significant for diabetes mellitus hypertension CVA TIA COPD bipolar depression and Schizoaffective Disorder with recent admission to hospital with a left-sided empyema status post chest tube placement cultures were negative now presented back to the hospital worsening shortness of breath CT with evidence of left- sided loculated fluid requiring another chest tube placement. On today's evaluation that is 10/20/2024, Patient is afebrile patient is currently on room air and breathing comfortably pain to the left side of chest is currently controlled chest tube has been discontinued by the CT surgery no vomiting or diarrhea has been reported. No labs obtained today cultures are currently pending Objective - Vital Signs Vital signs: Vital Signs Temp 97.9 F 10/20/24 07:03 Pulse 76 10/20/24 12:00 Resp 17 10/20/24 07:03 BP 110/60 10/20/24 07:03 Pulse Ox 95 10/20/24 07:03 FiO2 Intake & Output 10/19/24 10/20/24 10/20/24 18:59 06:59 18:59 Intake Total 400 Balance 400 Intake: Oral 400 Other: Voiding Method External Catheter Incontinent # Voids 300 1 - Exam GENERAL DESCRIPTION: Middle-age male lying in bed in no distress RESPIRATORY SYSTEM: Unlabored breathing , decreased breath sounds at bases HEART: S1 S2 regular rate and rhythm , ABDOMEN: Soft , no tenderness EXTREMITIES: No edema feet - Labs CBC & Chem 7: 10/18/24 03:01 10/17/24 02:38 Labs: Abnormal Lab Results - Last 24 Hours (Table) 10/19/24 10/19/24 10/20/24 Range/Units 16:12 21:19 00:28 POC Glucose (mg/dL) 437 H 329 H 184 H (70-110) mg/dL 10/20/24 10/20/24 10/20/24 Range/Units 06:24 11:20 13:12 POC Glucose (mg/dL) 223 H 343 H 377 H (70-110) mg/dL Microbiology - Last 24 Hours (Table) 10/17/24 11:30 Anaerobic Culture - Preliminary Pleural Fluid 10/17/24 11:30 Gram Stain - Preliminary Pleural Fluid Body Fluid Culture - Preliminary Assessment and Plan (1) Empyema of lung Current Visit: Yes Status: Acute Code(s): J86.9 - PYOTHORAX WITHOUT FISTULA SNOMED Code(s): 72548305 Plan: 1patient is in the hospital with increasing shortness of breath in this patient with outpatient CT concerning for a left-sided fluid collection with gas concerning for empyema and this patient did have a similar presentation for the brain did have a chest tube placement culture were negative and the patient did received extensive IV antibiotic therapy and was advised oral antibiotics on DC, patient has been evaluated by CT surgery consulted IR for chest tube placement which has been completed fluid has been sent for the culture which are currently pending 2-patient is afebrile and cultures are currently pending chest tube has been discontinued by CT surgery patient will be continued on Rocephin and Flagyl and monitor clinical course closely Dictation was produced using [employer] dictation software. please excuse any grammatical, word or spelling errors. Time with Patient: Less than 30
--- NOTE | 2024-10-20 16:09 | P.PN ---
Progress Note - Text Progress Note Date: 10/20/24 Chief Complaint: Short of breath 59-year-old patient who follows with visiting physicians. Recently in the hospital from September 26 through October 14. Patient is a resident of [facility]. Patient was then admitted for worsening respiratory status. Patient was admitted present LV function. Left-sided chest tube was placed. Significant amount of fluid was obtained. Patient eventually pulled out the tube. Bloody fluid cultures came back negative. She did receive a prolonged course of IV Zosyn and was discharged on a short course of Augmentin. Patient now again presented to [facility] increasing shortness of breath. X-ray showed reaccumulation of pleural fluid. Cardiothoracic surgery was consulted. Chest tube was placed. Last time patient received 4 courses of alteplase/dornase. Also seen by psychiatry Dr. Parson last time would make medication changes. Patient does have a legal guardian. October 18: Resting in bed. Left-sided pigtail catheter. About 40 cc output overnight shift. Oral intake about 50%. Fluid cultures pending. On IV ceftri axone and Flagyl. October 19: Minimal output overnight through the pigtail catheter. Will order CT scan to see how much fluid is present. Patient did refuse to take couple of his medications. Most discussed with psychiatry. Psychiatry consulted. Eating fair. CT scan is showing improvement of the pleural effusion. Small pocket of fluid. Cardiothoracic team following. October 20: Pigtail catheter was removed. Patient eating well.Psychiatry was consulted yesterday to review medications as patient had been refusing medications. 94% room air. Appears rather comfortable. Consult PT OT. Accu- Cheks remain uncontrolled. Will switch to NovoLog 70/30. 18 units with breakfast and supper. 6 units with lunch Active Medications Albuterol/Ipratropium (Ipratropium-Albuterol 3 Ml Neb) 3 ml INHALATION RT-Q4H PRN PRN Reason: Shortness Of Breath Or Wheezing Albuterol/Ipratropium (Ipratropium-Albuterol 3 Ml Neb) 3 ml INHALATION RT-QID [facility] Last Admin: 10/20/24 11:49 Dose: 3 ml Amantadine HCl (Amantadine Hcl 100 Mg Cap) 100 mg PO DAILY [facility] Last Admin: 10/20/24 08:55 Dose: 100 mg Aspirin (Aspirin 81 Mg) 81 mg PO DAILY [facility] Last Admin: 10/20/24 08:54 Dose: 81 mg Dextrose/Water (Dextrose 50% Syringe 50 Ml) 25 ml IVP PER PROTOCOL PRN; Protocol PRN Reason: Hypoglycemia Dextrose/Water (Dextrose 50% Syringe 50 Ml) 50 ml IVP PER PROTOCOL PRN; Protocol PRN Reason: Hypoglycemia Diltiazem HCl (Diltiazem Cd 120 Mg Cap.Er.24h) 120 mg PO DAILY [facility] Last Admin: 10/20/24 08:55 Dose: 120 mg Diltiazem HCl (Diltiazem Cd 240 Mg Cap.Er.24h) 240 mg PO DAILY [facility] Last Admin: 10/20/24 08:54 Dose: 240 mg Divalproex Sodium (Divalproex Er 500 Mg Tab.Er.24h) 1,500 mg PO [facility] Fluphenazine HCl (Fluphenazine 5 Mg Tab) 10 mg PO DAILY [facility] Last Admin: 10/20/24 08:54 Dose: 10 mg Fluticasone Propionate (Fluticasone Nasal 50mcg/[place] 16gm Btl) 2 spray EA NOSTRIL DAILY [facility] Last Admin: 10/20/24 09:59 Dose: Not Given Folic Acid (Folic Acid 1 Mg Tab) 1 mg PO DAILY [facility] Last Admin: 10/20/24 08:55 Dose: 1 mg Guaifenesin/Dextromethorphan (Guaifenesin-Dm 600/30mg 1 Each Tab.Er.12h) 2 each PO Q12HR PRN PRN Reason: congestion/cough Hydroxyzine HCl (Hydroxyzine Hcl 25 Mg Tab) 25 mg PO DAILY PRN PRN Reason: Anxiety Metronidazole 500 mg/ IV (Solution) 100 mls @ 100 mls/hr IVPB BID [facility]; Protocol Last Admin: 10/20/24 08:55 Dose: 100 mls/hr Ceftriaxone Sodium 2 gm/ (Sodium Chloride) 50 mls @ 100 mls/hr IVPB Q24H [facility]; Protocol Last Admin: 10/19/24 18:01 Dose: 100 mls/hr Insulin Aspart (Insulin Aspart (Novolog) 100 Unit/Ml Vial) 0 unit SQ ACHS [facility]; Protocol Last Admin: 10/20/24 12:09 Dose: 8 unit Insulin Human Regular (Insulin Regular 100 Unit/Ml Vial (Im/Sq)) 15 unit SQ AC- BID [facility] Last Admin: 10/20/24 07:00 Dose: 15 unit Loratadine (Loratadine 10 Mg Tab) 10 mg PO DAILY [facility] Last Admin: 10/20/24 08:55 Dose: 10 mg Metoprolol Tartrate (Metoprolol Tartrate 50 Mg Tab) 50 mg PO BID [facility] Last Admin: 10/20/24 08:55 Dose: 50 mg Naloxone HCl (Naloxone 0.4 Mg/Ml 1 Ml Vial) 0.2 mg IV Q2M PRN PRN Reason: Opioid Reversal Naproxen (Naproxen 250 Mg Tab) 250 mg PO Q8HR PRN PRN Reason: Pain Last Admin: 10/20/24 08:55 Dose: 250 mg [place]-3 Acid Ethyl Esters [Lovaza] 1 Gm Capsule 1 gm PO BID [facility] Last Admin: 10/20/24 09:59 Dose: Not Given Olanzapine (Olanzapine 5 Mg Tab) 5 mg PO TID PRN PRN Reason: Severe Agitation Last Admin: 10/18/24 09:02 Dose: 5 mg Petrolatum (Zinc Oxide Paste (Z-Guard) 1 Applic) 1 applic TOPICAL DAILY PRN; Protocol PRN Reason: Wound Healing Last Admin: 10/16/24 18:19 Dose: 1 applic Quetiapine Fumarate (Quetiapine 400 Mg Tab) 600 mg PO HS [facility] Last Admin: 10/19/24 21:53 Dose: 600 mg Sodium Chloride (Sodium Chloride 0.65% Nasal [place] 44 Ml Btl) 2 spray NASAL QID PRN PRN Reason: Congestion Last Admin: 10/19/24 09:14 Dose: 2 spray Trazodone HCl (Trazodone Hcl 50 Mg Tab) 50 mg PO HS PRN PRN Reason: SLEEP Last Admin: 10/18/24 21:10 Dose: 50 mg Social history: Resident [facility] On examination: VITAL SIGNS: 98, 63, 15, 107 x 63, 94% room air GENERAL APPEARANCE: Resting in bed, comfortable HEENT: Normal external appearance of nose and ear. Oral cavity normal EYES: Pupils equal. Conjunctiva normal. NECK: JVD not raised. Mass not palpable. RESPIRATORY: Respiratory effort normal, decreased breath sounds. Left-sided chest drain CARDIOVASCULAR: First and second sounds normal. No edema. ABDOMEN: Soft. Liver and spleen not palpable. No tenderness. No mass palpable. PSYCHIATRY: Answering simple questions INVESTIGATIONS, reviewed in the clinical context: CT scan chest [October 19] much smaller pocket of pleural fluid October 18: White count 5.6 hemoglobin 12.4 platelets 239 October 17, 2024: White count 4.2 hemoglobin 12.1 platelets 219 sodium 132 potassium 4.8 creatinine 0.59 EKG tracing personally reviewed by me-normal sinus rhythm. Rate 67 Chest x-ray film personally reviewed by [id number] pleural effusion Recent admission Pleural fluid culture: Negative Assessment and plan: -Recurrent left pleural effusion in a patient who recently had complicated pneumonia with pleural effusion. He had a chest tube on the recent admission. Initially it was placed on September 30. And pulled out on October 09. That he had pulled out. Patient was discharged on 3 L of oxygen. Left-sided chest tube to drain.: Normal output. Pigtail catheter pulled out October 20. Cardiothoracic and pulmonary following. Repeat CT scan chest showing a very small pocket of fluid now. -Acute hypoxemic respiratory failure, secondary to pleural effusion/pneumonia: Improved Now on room air -Paroxysmal atrial fibrillation currently in sinus rhythm Cardizem CD 360 mg a day. Lopressor 25 mg twice daily Leukocytosis secondary to above Schizoaffective disorder -Bipolar disorder with anxiety/depression Desyrel. Depakote Seroquel 25 mg twice daily added for agitation. Patient refusing some medications. Wants to discuss with psychiatry. -Diabetes mellitus, type II, chronically insulin, uncontrolled with hyperglycemia DC regular insulin. Place the patient on NovoLog 70/30. 18 units with breakfast and supper. 6 units with lunch. -Essential hypertension Cardizem CD 360 mg. Lopressor -Gastroesophageal reflux disease Pepcid as needed -Public guardian -Full code Awaiting input from psychiatry as patient had refused medications yesterday. New dose of insulin started.. PT OT consulted. Past Medical History Past Medical History: Asthma, COPD, CVA/TIA, Diabetes Mellitus, Hypertension, Pneumonia, Thyroid Disorder Additional Past Medical History / Comment(s): Tremors History of Any Multi-Drug Resistant Organisms: None Reported Past Surgical History: Cholecystectomy Additional Past Surgical History / Comment(s): LEFT EYE Past Anesthesia/Blood Transfusion Reactions: No Reported Reaction Past Psychological History: Anxiety, Bipolar, Depression, Schizoaffective Disorder Smoking Status: Current every day smoker Past Alcohol Use History: None Reported Past Drug Use History: None Reported Additional Drug Use History / Comment(s): pt is a very poor historian
[2024-10-20 16:27] LABS: Glucose,Whole Blood 337 mg/dL (70-110)
[2024-10-20] MEDS: INSULN ASP PRT/INSULIN ASPART 100 UNIT/ML 10 ML VIAL SQ SCH (16:50)
[2024-10-20 21:21] LABS: Glucose,Whole Blood 411 mg/dL (70-110)
[2024-10-20] MEDS: DIVALPROEX ER 500 MG TAB.ER.24H PO SCH (21:36)
[2024-10-21 01:22] LABS: Glucose,Whole Blood 270 mg/dL (70-110)
[2024-10-21 06:33] LABS: Glucose,Whole Blood 223 mg/dL (70-110)
--- NOTE | 2024-10-21 07:14 | XR ---
EXAMINATION TYPE: XR chest 1V portable DATE OF EXAM: 10/21/2024 COMPARISON: NONE CLINICAL INDICATION: Male, 59 years old with history of Left pleural effusion; , TECHNIQUE: XR chest 1V portable views of the chest. FINDINGS: Subsegmental left basilar consolidation. Limited inspiration. No pneumothorax. Tiny pleural effusion on excluded. Heart size stable. Degenerative change of the spine. Surgical clips gallbladder fossa. IMPRESSION: 1. Stable left lower lobe infiltrate. Stable tiny left pleural effusion. [facility], , 10/21/2024 7:12 AM
[2024-10-21 09:44] LABS: Basophils # (A) 0.1 k/uL (0-0.2); Basophils % (A) 1 %; Eosinophils # (A) 0.3 k/uL (0-0.7); Eosinophils % (A) 4 %; HCT 35.3 % (39.0-53.0); HGB 11.8 gm/dL (13.0-17.5); Lymphocytes # (A) 2.9 k/uL (1.0-4.8); Lymphocytes % (A) 41 %; MCHC 33.4 g/dL (31.0-37.0); MCV 92.8 fL (80.0-100.0); Mean Platelet Volume 7.8; Monocytes # (A) 0.7 k/uL (0-1.0); Monocytes % (A) 10 %; Neutrophils % (A) 42 %; Platelet Count 225 k/uL (150-450); RDW 14.9 % (11.5-15.5)
--- NOTE | 2024-10-21 10:13 | P.PN ---
Subjective Progress Note Date: 10/21/24 Principal diagnosis: Recurrent left pleural effusion, status post 4 alteplase/dornase pleural installations through his left chest pigtail catheter, his last alteplase/dornase treatment was on October 08, 2024. Past medical history significant for asthma, COPD, CVA, diabetes mellitus type 2, hypertension, thyroid disorder, GERD, anxiety, depression, bipolar disorder, and schizoa ffective disorder. Patient was seen and examined at his bedside today October 21, 2024 on the four th floor medical surgical unit. He is currently laying in bed, is awake, alert, oriented x 3 and is in no acute apparent distress. Denies any complaints of pain or shortness of breath at this time. States he feels much better today than previous days. He has been afebrile in the last 24 hours. Oxygen saturations are 99% on room air and he is achieving 1000 mL on his incentive spirometry. The patient left total pigtail catheter was removed without incident yesterday. Chest x-ray results reviewed. Objective - Vital Signs Vital signs: Vital Signs Temp 97.3 F L 10/21/24 07:46 Pulse 64 10/21/24 08:47 Resp 18 10/21/24 07:46 BP 127/70 10/21/24 07:46 Pulse Ox 99 10/21/24 07:46 FiO2 Intake & Output 10/20/24 10/21/24 10/21/24 18:59 06:59 18:59 Output Total 1400 Balance -1400 Output: Urine 1400 Other: Voiding Method Incontinent # Voids 6 1 - Exam CONSTITUTIONAL: Appears comfortable, cooperative, no acute distress RESPIRATORY: Lungs sounds diminished to his bilateral bases, left greater than right. Respirations symmetrical, nonlabored. Currently on room air and oxygen saturation 99%. Able to achieve 1000 mL on his incentive spirometry. Strong nonproductive cough. CARDIOVASCULAR: S1, S2 present. Regular rate and rhythm. Palpable peripheral pulses bilaterally. No edema present. No calf pain or tenderness noted. GASTROINTESTINAL: Abdomen soft, nontender, nondistended. Active bowel sounds present 4 quadrants. Tolerating diet. GENITOURINARY: Continues to void, external catheter in place. INTEGUMENTARY: Skin is warm and dry with no clubbing or cyanosis present. NEUROLOGIC: No focal deficits. MUSKULOSKELETAL: Able to move all extremities, strength equal bilaterally. PSYCHIATRIC: Alert and oriented to person place and time, flat affect, intact judgment and insight. - Allied health notes Allied health notes reviewed: nursing - Labs CBC & Chem 7: 10/21/24 08:59 10/17/24 02:38 Labs: Abnormal Lab Results - Last 24 Hours (Table) 10/20/24 10/20/24 10/20/24 Range/Units 11:20 13:12 16:25 RBC (4.30-5.90) m/uL Hgb (13.0-17.5) gm/dL Hct (39.0-53.0) % POC Glucose (mg/dL) 343 H 377 H 337 H (70-110) mg/dL 10/20/24 10/21/24 10/21/24 Range/Units 21:19 01:20 06:31 RBC (4.30-5.90) m/uL Hgb (13.0-17.5) gm/dL Hct (39.0-53.0) % POC Glucose (mg/dL) 411 H 270 H 223 H (70-110) mg/dL 10/21/24 Range/Units 08:59 RBC 3.80 L (4.30-5.90) m/uL Hgb 11.8 L (13.0-17.5) gm/dL Hct 35.3 L (39.0-53.0) % POC Glucose (mg/dL) (70-110) mg/dL Microbiology - Last 24 Hours (Table) 10/17/24 11:30 Gram Stain - Preliminary Pleural Fluid Body Fluid Culture - Preliminary - Imaging and Cardiology Chest x-ray: report reviewed, image reviewed Assessment and Plan Assessment: Recurrent left-sided pleural effusion, status post pigtail catheter placement on September 30, 2024 by interventional radiology, status post instillation fourth dose of alteplase/dornase last dose given on October 08, 2024 History of paroxysmal atrial fibrillation with rapid ventricular response Hypertension History of CVA Diabetes mellitus type 2, insulin-dependent Schizoaffective disorder History of bipolar disorder with anxiety/depression GERD Medical debility Plan: Bronchodilator management per pulmonary/critical care medicine recommendations. Encourage use of incentive spirometry 10 times every hour while awake. Increase activity as tolerated. Out of bed for all meals. Medical management other comorbidities per internal medicine, infectious disease and pulmonary/critical care medicine. We will continue to follow the patient on an as-needed basis, please reconsult if needed. Time with Patient: Less than 30
[2024-10-21 10:37] LABS: Band Neutrophils % 6 %; Basophils # (M) 0.07 k/uL (0-0.2); Eosinophils # (M) 0.28 k/uL (0-0.7); Lymphocytes # (M) 2.73 k/uL (1.0-4.8); Metamyelocytes # (M) 0.28 k/uL (0); Metamyelocytes % 4 %; Monocytes # (M) 0.98 k/uL (0-1.0); Myelocytes # (M) 0.21 k/uL (0); Myelocytes % 3 %; Neutrophils % (M) 32 %; Nucleated Red Blood Cells 0 /100 WBC (0-0); RBC Morphology Normal; Total Cells Counted 200
[2024-10-21 11:30] LABS: Glucose,Whole Blood 479 mg/dL (70-110)
--- NOTE | 2024-10-21 12:00 | P.PN ---
Subjective Progress Note Date: 10/21/24 Principal diagnosis: Reason for follow-up is left-sided empyema Patient is a 59-year-old male with a past medical history significant for diabetes mellitus hypertension CVA TIA COPD bipolar depression and Schizoaffective Disorder with recent admission to hospital with a left-sided empyema status post chest tube placement cultures were negative now presented back to the hospital worsening shortness of breath CT with evidence of left- sided loculated fluid requiring another chest tube placement. On today's evaluation that is 10/21/2023, patient has been afebrile, patient is breathing comfortably and is currently on room air, patient denies having any significant cough no chest pain, patient denies nausea vomiting or diarrhea and no abdominal pain. Patient white count 7.0 cultures are currently pending Objective - Vital Signs Vital signs: Vital Signs Temp 97.3 F L 10/21/24 07:46 Pulse 64 10/21/24 08:47 Resp 18 10/21/24 07:46 BP 127/70 10/21/24 07:46 Pulse Ox 99 10/21/24 07:46 FiO2 Intake & Output 10/20/24 10/21/24 10/21/24 18:59 06:59 18:59 Output Total 1400 Balance -1400 Output: Urine 1400 Other: Voiding Method Incontinent Incontinent # Voids 6 1 - Exam GENERAL DESCRIPTION: Middle-age male lying in bed in no distress RESPIRATORY SYSTEM: Unlabored breathing , decreased breath sounds at bases HEART: S1 S2 regular rate and rhythm , ABDOMEN: Soft , no tenderness EXTREMITIES: No edema feet - Labs CBC & Chem 7: 10/21/24 08:59 10/17/24 02:38 Labs: Abnormal Lab Results - Last 24 Hours (Table) 10/20/24 10/20/24 10/20/24 Range/Units 13:12 16:25 21:19 RBC (4.30-5.90) m/uL Hgb (13.0-17.5) gm/dL Hct (39.0-53.0) % Metamyelocytes # (Man) (0) k/uL Myelocytes # (Manual) (0) k/uL POC Glucose (mg/dL) 377 H 337 H 411 H (70-110) mg/dL 10/21/24 10/21/24 10/21/24 Range/Units 01:20 06:31 08:59 RBC 3.80 L (4.30-5.90) m/uL Hgb 11.8 L (13.0-17.5) gm/dL Hct 35.3 L (39.0-53.0) % Metamyelocytes # (Man) 0.28 H (0) k/uL Myelocytes # (Manual) 0.21 H (0) k/uL POC Glucose (mg/dL) 270 H 223 H (70-110) mg/dL 10/21/24 Range/Units 11:29 RBC (4.30-5.90) m/uL Hgb (13.0-17.5) gm/dL Hct (39.0-53.0) % Metamyelocytes # (Man) (0) k/uL Myelocytes # (Manual) (0) k/uL POC Glucose (mg/dL) 479 H (70-110) mg/dL Microbiology - Last 24 Hours (Table) 10/17/24 11:30 Gram Stain - Preliminary Pleural Fluid Body Fluid Culture - Preliminary Assessment and Plan (1) Empyema of lung Current Visit: Yes Status: Acute Code(s): J86.9 - PYOTHORAX WITHOUT FISTULA SNOMED Code(s): 75453500 Plan: 1patient is in the hospital with increasing shortness of breath in this patient with outpatient CT concerning for a left-sided fluid collection with gas concerning for empyema and this patient did have a similar presentation for the brain did have a chest tube placement culture were negative and the patient did received extensive IV antibiotic therapy and was advised oral antibiotics on DC, patient has been evaluated by CT surgery consulted IR for chest tube placement which has been completed fluid has been sent for the culture which are currently pending 2-patient is afebrile and cultures are currently pending patient is currently being treated with Rocephin and Flagyl while waiting for the culture to finalize Dictation was produced using [employer] dictation software. please excuse any grammatical, word or spelling errors. Time with Patient: Less than 30
[2024-10-21] MEDS: INSULIN ASPART (NovoLOG) 100 UNIT/ML VIAL SQ ONE (12:16)
[2024-10-21] MEDS: INSULN ASP PRT/INSULIN ASPART 100 UNIT/ML 10 ML VIAL SQ SCH ×2 (12:17→17:51)
[2024-10-21] MEDS ORDERED: INSULN ASP PRT/INSULIN ASPART 100 UNIT/ML 10 ML VIAL SQ SCH (12:30)
--- NOTE | 2024-10-21 14:23 | P.PN ---
Subjective Progress Note Date: 10/21/24 Patient is a 59-year-old male with past medical history significant for pneumonia, diabetes mellitus, atrial fibrillation, CVA/TIA, hypertension, schizoaffective disorder, and resides at an [facility] home.. He had a recent hospitalization September 26 through October 14 for a loculated possibly parapneumonic left-sided pleural effusion, patient did have a pigtail catheter for placed thrombolytics September 30 which was inadvertently removed on October 09. This was an exudative effusion based on lights criteria. Microbiology was negative. Cytology also unremarkable. Patient did receive IV antibiotics while inpatient, and was discharged on p.o. Augmentin to be completed on outpatient basis. Previous follow-up chest x-ray showing only trace left-sided pleural effusion with atelectasis versus consolidative changes in the left lung base. Patient was eventually discharged back to his [facility]. Patient transferred from [facility] yesterday evening. Apparently, has had progressively worsening shortness of breath over the last week. Chest CT at outside facility did not show any pulmonary embolism. There was posterior basilar left chest loculated fluid collection, with air-fluid level, measuring 6.1 x 9.5 x 11.3 cm. Suspicious for empyema. There is a moderate adjacent consolidation or atelectasis. Patchy groundglass opacities throughout much of the bilateral lower and posterior dependent upper lobes. Patchy consolidation involving the anterior lateral peripheral lingula as well as left base. Workup so far upon transfer includes a chest x-ray showing above-mentioned fluid c ollection with air-fluid level over the posterior spine on lateral view. Awaiting follow-up labs. Patient is currently being evaluated emergency department. He is on room air. Not in any respiratory distress. He is alert and has a flat affect. Responses to interview are short and does not volunteer information. He denies any shortness of breath, cough, chest pain, back pain, fever/chills. Patient was started on antibiotics in the ED. Current most recent vital signs: Temperature 98.3 F, heart rate 67 bpm, blood pressure 144/68 mmHg, nontachypneic, SpO2 is 99% on room air. The patient is seen today October 18, 2024 in follow-up on the regular medical floor. He is currently resting comfortably or back. Awake and alert in no acute distress. Maintaining O2 saturations up to 100% on 2 L/min per nasal cannula. Afebrile. Hemodynamically stable. Left-sided pigtail catheter was pl aced by interventional radiology yesterday. X-ray reveals residual left-sided atelectatic changes. No evidence of pneumothorax. Pigtail catheter placed to Pleur-evac and wall suction. Minimal output currently. Cultures pending. White count 5.6. Hemoglobin 12.4. Platelets 239. Glucose 162. He remains on bronchodilators, Rocephin, Flagyl. The patient is seen today October 19, 2024 in follow-up on the regular medical floor. He is awake and alert in no acute distress. Resting comfortably in bed. Denies any worsening shortness of breath, cough or congestion. He is maintaining good O2 saturations in the 90s on room air. He is continued on DuoNeb and elations, Mucinex. Antibiotics in the form of ceftriaxone and Flagyl. Left-sided pigtail catheter remains in place Lorvacs and wall suction. Approximately 140 mL of serosanguineous drainage out. Today's chest x-ray shows trace left pleural effusion. No evidence of pneumothorax. Pigtail catheter in good position. Pleural fluid reveals no malignancy cells identified. Cultures pending. Glucose 278. The patient is seen today October 20, 2024 in follow-up on the regular medical floor. He is awake and alert in no acute distress. Resting fairly comfortably in bed. Denies any worsening shortness of breath, cough or congestion. Left- sided pigtail catheter remains in place. No significant output in the past [address] scan of the chest yesterday revealed left lower lung pigtail catheter terminating in the lung parenchyma, removal and replacement recommended. Fluid cultures revealed no growth thus far. Glucose 223. Remains on DuoNeb inhalations. Continued on ceftriaxone and Flagyl. The patient is seen today October 21, 2024 in follow-up on the regular medical floor. He is currently resting comfortably in bed. Awake and alert in no acute distress. Maintaining O2 saturations in the 90s on room air. His pigtail catheter was removed yesterday. Today's chest x-ray shows able left lower lobe infiltrate. Tiny left pleural effusion. Pleural fluid cultures pending. White count 7.0. Hemoglobin 11.8. Platelets 225. He remains on DuoNeb inhalations. Continued on ceftriaxone and Flagyl. Objective - Vital Signs Vital signs: Vital Signs Temp 97.3 F L 10/21/24 07:46 Pulse 64 10/21/24 08:47 Resp 18 10/21/24 07:46 BP 127/70 10/21/24 07:46 Pulse Ox 99 10/21/24 07:46 FiO2 Intake & Output 10/20/24 10/21/24 10/21/24 18:59 06:59 18:59 Output Total 1400 Balance -1400 Output: Urine 1400 Other: Voiding Method Incontinent Incontinent # Voids 6 1 - Exam GENERAL EXAM: Alert, 59-year-old male, resting in bed, on room air, not in any distress. HEAD: Normocephalic and atraumatic EYES: Normal reaction of pupils, equal size. NOSE: Clear with pink turbinates. THROAT: No erythema or exudates. NECK: No masses, no JVD. CHEST: No chest wall deformity. Pigtail catheter removed. LUNGS: Equal air entry with posterior left chest inspiratory crackles. CVS: S1 and S2 normal with no audible murmur, regular rhythm. No extra heart sounds ABDOMEN: No hepatosplenomegaly, active bowel sounds, no guarding or rigidity. SPINE: No scoliosis or deformity SKIN: No rashes CENTRAL NERVOUS SYSTEM: No focal deficits, tone is normal in all 4 extremities. EXTREMITIES: There is no peripheral edema, clubbing, or cyanosis. Peripheral pulses are intact. - Labs CBC & Chem 7: 10/21/24 08:59 10/17/24 02:38 Labs: Abnormal Lab Results - Last 24 Hours (Table) 10/20/24 10/20/24 10/21/24 Range/Units 16:25 21:19 01:20 RBC (4.30-5.90) m/uL Hgb (13.0-17.5) gm/dL Hct (39.0-53.0) % Metamyelocytes # (Man) (0) k/uL Myelocytes # (Manual) (0) k/uL POC Glucose (mg/dL) 337 H 411 H 270 H (70-110) mg/dL 10/21/24 10/21/24 10/21/24 Range/Units 06:31 08:59 11:29 RBC 3.80 L (4.30-5.90) m/uL Hgb 11.8 L (13.0-17.5) gm/dL Hct 35.3 L (39.0-53.0) % Metamyelocytes # (Man) 0.28 H (0) k/uL Myelocytes # (Manual) 0.21 H (0) k/uL POC Glucose (mg/dL) 223 H 479 H (70-110) mg/dL Microbiology - Last 24 Hours (Table) 10/17/24 11:30 Gram Stain - Preliminary Pleural Fluid Body Fluid Culture - Preliminary Assessment and Plan Assessment: Acute dyspnea, CT chest done at outside facility showing posterior basilar left chest fluid collection, loculated, with air-fluid level, measuring 6.1 x 9.5 x 11.3 cm. Suspicious for empyema. There is a adjacent consolidation or atelectasis. Patchy groundglass opacities throughout much of the bilateral lower and posterior dependent upper lobes. Patchy consolidation involving the anterior lateral peripheral lingula, as well as, left base. On his previous admission he did have a left-sided pigtail catheter in place that was inadvertently removed. This admission he had another pigtail catheter placed October 17, 2024 and discontinued October 20, 2024. Pleural fluid cultures pending. Remains on ceftriaxone and Flagyl Complicated, loculated parapneumonic left-sided effusion, status post pigtail catheter placement on 09/30/2024, inadvertently removed on 10/09/2023. Exudative effusion based on Lights criteria and fluid analysis. Microbiology was negative. Cytology also unremarkable. Patient did receive IV antibiotics while inpatient, and was discharged with PO antibiotics to be completed outpatient. Ultimately, discharged back to [facility] home on October 14 History of COVID-19 infection History of atrial fibrillation, currently in normal sinus mechanism Diabetes mellitus, type II, with hyperglycemia History of mild intermittent chronic bronchial asthma. History of CVA. Hypertension. Gastroesophageal reflux disease. History of schizoaffective disorder/bipolar disorder/anxiety/depression [facility] resident. Plan: The patient was seen and evaluated Chest x-ray, labs and medications reviewed Currently stable and on room air Left-sided pigtail catheter removed yesterday Final cultures pending Antibiotics per ID service Continued on bronchodilators We will continue to follow I have personally seen and examined the patient, performed the documentation and the assessment and plan as written. Number of minutes spent on the visit: 10 Dictation was produced using [employer] software. Please excuse any grammatical, word or spelling errors.
--- NOTE | 2024-10-21 15:26 | P.PN ---
Progress Note - Text Progress Note Date: 10/21/24 Chief Complaint: Short of breath 59-year-old patient who follows with visiting physicians. Recently in the hospital from September 26 through October 14. Patient is a resident of [facility]. Patient was then admitted for worsening respiratory status. Patient was admitted present LV function. Left-sided chest tube was placed. Significant amount of fluid was obtained. Patient eventually pulled out the tube. Bloody fluid cultures came back negative. She did receive a prolonged course of IV Zosyn and was discharged on a short course of Augmentin. Patient now again presented to [facility] increasing shortness of breath. X-ray showed reaccumulation of pleural fluid. Cardiothoracic surgery was consulted. Chest tube was placed. Last time patient received 4 courses of alteplase/dornase. Also seen by psychiatry Dr. Parson last time would make medication changes. Patient does have a legal guardian. October 18: Resting in bed. Left-sided pigtail catheter. About 40 cc output overnight shift. Oral intake about 50%. Fluid cultures pending. On IV ceftri axone and Flagyl. October 19: Minimal output overnight through the pigtail catheter. Will order CT scan to see how much fluid is present. Patient did refuse to take couple of his medications. Most discussed with psychiatry. Psychiatry consulted. Eating fair. CT scan is showing improvement of the pleural effusion. Small pocket of fluid. Cardiothoracic team following. October 20: Pigtail catheter was removed. Patient eating well.Psychiatry was consulted yesterday to review medications as patient had been refusing medications. 94% room air. Appears rather comfortable. Consult PT OT. Accu- Cheks remain uncontrolled. Will switch to NovoLog 70/30. 18 units with breakfast and supper. 6 units with lunch October 21: Patient Accu-Cheks running high into the 400. Patient be snacking in between his meals. Spoke to the nurse to regulate his diet. May have fluids in between his meals. Adjust patient's Humalog 70/30. Hold discharge for today. Patient has been feeding himself. PT OT of the case. Active Medications Albuterol/Ipratropium (Ipratropium-Albuterol 3 Ml Neb) 3 ml INHALATION RT-Q4H PRN PRN Reason: Shortness Of Breath Or Wheezing Albuterol/Ipratropium (Ipratropium-Albuterol 3 Ml Neb) 3 ml INHALATION RT-QID [facility] Last Admin: 10/21/24 12:39 Dose: Not Given Amantadine HCl (Amantadine Hcl 100 Mg Cap) 100 mg PO DAILY [facility] Last Admin: 10/21/24 08:28 Dose: 100 mg Aspirin (Aspirin 81 Mg) 81 mg PO DAILY [facility] Last Admin: 10/21/24 08:26 Dose: 81 mg Dextrose/Water (Dextrose 50% Syringe 50 Ml) 25 ml IVP PER PROTOCOL PRN; Protocol PRN Reason: Hypoglycemia Dextrose/Water (Dextrose 50% Syringe 50 Ml) 50 ml IVP PER PROTOCOL PRN; Protocol PRN Reason: Hypoglycemia Diltiazem HCl (Diltiazem Cd 120 Mg Cap.Er.24h) 120 mg PO DAILY [facility] Last Admin: 10/21/24 08:28 Dose: 120 mg Diltiazem HCl (Diltiazem Cd 240 Mg Cap.Er.24h) 240 mg PO DAILY [facility] Last Admin: 10/21/24 08:28 Dose: 240 mg Divalproex Sodium (Divalproex Er 500 Mg Tab.Er.24h) 1,500 mg PO HS [facility] Last Admin: 10/20/24 21:36 Dose: 1,500 mg Fluphenazine HCl (Fluphenazine 5 Mg Tab) 10 mg PO DAILY [facility] Last Admin: 10/21/24 08:28 Dose: 10 mg Fluticasone Propionate (Fluticasone Nasal 50mcg/[place] 16gm Btl) 2 spray EA NOSTRIL DAILY [facility] Last Admin: 10/21/24 08:26 Dose: Not Given Folic Acid (Folic Acid 1 Mg Tab) 1 mg PO DAILY [facility] Last Admin: 10/21/24 08:26 Dose: 1 mg Guaifenesin/Dextromethorphan (Guaifenesin-Dm 600/30mg 1 Each Tab.Er.12h) 2 each PO Q12HR PRN PRN Reason: congestion/cough Hydroxyzine HCl (Hydroxyzine Hcl 25 Mg Tab) 25 mg PO DAILY PRN PRN Reason: Anxiety Metronidazole 500 mg/ IV (Solution) 100 mls @ 100 mls/hr IVPB BID [facility]; Protocol Last Admin: 10/21/24 08:22 Dose: 100 mls/hr Ceftriaxone Sodium 2 gm/ (Sodium Chloride) 50 mls @ 100 mls/hr IVPB Q24H [facility]; Protocol Last Admin: 10/20/24 16:49 Dose: 100 mls/hr Insulin Aspart (Insulin Aspart (Novolog) 100 Unit/Ml Vial) 0 unit SQ ACHS [facility]AR; Protocol Last Admin: 10/21/24 12:16 Dose: 12 unit Insulin Aspart (Insuln Asp Prt/Insulin Aspart 100 Unit/Ml 10 Ml Vial) 10 unit SQ AC-LUNCH [facility] Last Admin: 10/21/24 12:17 Dose: 10 unit Insulin Aspart (Insuln Asp Prt/Insulin Aspart 100 Unit/Ml 10 Ml Vial) 22 unit SQ AC-BID [facility] Loratadine (Loratadine 10 Mg Tab) 10 mg PO DAILY [facility] Last Admin: 10/21/24 08:26 Dose: 10 mg Metoprolol Tartrate (Metoprolol Tartrate 50 Mg Tab) 50 mg PO BID [facility] Last Admin: 10/21/24 08:26 Dose: 50 mg Naloxone HCl (Naloxone 0.4 Mg/Ml 1 Ml Vial) 0.2 mg IV Q2M PRN PRN Reason: Opioid Reversal Naproxen (Naproxen 250 Mg Tab) 250 mg PO Q8HR PRN PRN Reason: Pain Last Admin: 10/20/24 08:55 Dose: 250 mg [place]-3 Acid Ethyl Esters [Lovaza] 1 Gm Capsule 1 gm PO BID [facility] Last Admin: 10/21/24 08:27 Dose: Not Given Olanzapine (Olanzapine 5 Mg Tab) 5 mg PO TID PRN PRN Reason: Severe Agitation Last Admin: 10/18/24 09:02 Dose: 5 mg Petrolatum (Zinc Oxide Paste (Z-Guard) 1 Applic) 1 applic TOPICAL DAILY PRN; Protocol PRN Reason: Wound Healing Last Admin: 10/16/24 18:19 Dose: 1 applic Quetiapine Fumarate (Quetiapine 400 Mg Tab) 600 mg PO HS [facility] Last Admin: 10/20/24 21:35 Dose: 600 mg Sodium Chloride (Sodium Chloride 0.65% Nasal [place] 44 Ml Btl) 2 spray NASAL QID PRN PRN Reason: Congestion Last Admin: 10/19/24 09:14 Dose: 2 spray Trazodone HCl (Trazodone Hcl 50 Mg Tab) 50 mg PO HS PRN PRN Reason: SLEEP Last Admin: 10/18/24 21:10 Dose: 50 mg Social history: Resident of [facility] On examination: VITAL SIGNS: 97.3, 61, 18, 127 x 70, 99% room air GENERAL APPEARANCE: Resting in bed, comfortable HEENT: Normal external appearance of nose and ear. Oral cavity normal EYES: Pupils equal. Conjunctiva normal. NECK: JVD not raised. Mass not palpable. RESPIRATORY: Respiratory effort normal, decreased breath sounds. Left-sided chest drain CARDIOVASCULAR: First and second sounds normal. No edema. ABDOMEN: Soft. Liver and spleen not palpable. No tenderness. No mass palpable. PSYCHIATRY: Answering simple questions INVESTIGATIONS, reviewed in the clinical context: October 21: White count [address] scan chest [October 19] much smaller pocket of pleural fluid October 18: White count 5.6 hemoglobin 12.4 platelets 239 October 17, 2024: White count 4.2 hemoglobin 12.1 platelets 219 sodium 132 potassium 4.8 creatinine 0.59 EKG tracing personally reviewed by me-normal sinus rhythm. Rate 67 Chest x-ray film personally reviewed by [id number] pleural effusion Recent admission Pleural fluid culture: Negative Assessment and plan: -Recurrent left pleural effusion in a patient who recently had complicated pneumonia with pleural effusion. He had a chest tube on the recent admission. Initially it was placed on September 30. And pulled out on October 09. That he had pulled out. Patient was discharged on 3 L of oxygen. Left-sided chest tube to drain.: Normal output. Pigtail catheter pulled out October 20. Cardiothoracic and pulmonary following. Repeat CT scan chest showing a very small pocket of fluid now. -Acute hypoxemic respiratory failure, secondary to pleural effusion/pneumonia: Improved Now on room air -Paroxysmal atrial fibrillation currently in sinus rhythm Cardizem CD 360 mg a day. Lopressor 25 mg twice daily Leukocytosis secondary to above Schizoaffective disorder -Bipolar disorder with anxiety/depression Desyrel. Depakote Seroquel 25 mg twice daily added for agitation. Patient refusing some medications. Wants to discuss with psychiatry. -Diabetes mellitus, type II, chronically insulin, uncontrolled with hyperg lycemia, from a bit erratic food intake Increase NovoLog 70/30. 22 units with breakfast and supper. 10 units with lunch. -Essential hypertension Cardizem CD 360 mg. Lopressor -Gastroesophageal reflux disease Pepcid as needed -Public guardian -Full code Awaiting input from psychiatry a reviewed his medications. Adjust insulin. Plan for discharge tomorrow. PT OT on the case. Past Medical History Past Medical History: Asthma, COPD, CVA/TIA, Diabetes Mellitus, Hypertension, Pneumonia, Thyroid Disorder Additional Past Medical History / Comment(s): Tremors History of Any Multi-Drug Resistant Organisms: None Reported Past Surgical History: Cholecystectomy Additional Past Surgical History / Comment(s): LEFT EYE Past Anesthesia/Blood Transfusion Reactions: No Reported Reaction Past Psychological History: Anxiety, Bipolar, Depression, Schizoaffective Disorder Smoking Status: Current every day smoker Past Alcohol Use History: None Reported Past Drug Use History: None Reported Additional Drug Use History / Comment(s): pt is a very poor historian
[2024-10-21 16:39] LABS: Glucose,Whole Blood 285 mg/dL (70-110)
[2024-10-21 20:44] LABS: Glucose,Whole Blood 255 mg/dL (70-110)
[2024-10-22] MEDS: IPRATROPIUM-ALBUTEROL 3 ML NEB INHALATION PRN (03:43)
[2024-10-22 06:28] LABS: Glucose,Whole Blood 337 mg/dL (70-110)
[2024-10-22 07:34] VITALS: BP 110/73; RESP 14; TEMP 98.9
[2024-10-22 11:44] VITALS: PULSE 76
[2024-10-22] MEDS ORDERED: INSULN ASP PRT/INSULIN ASPART 100 UNIT/ML 10 ML VIAL SQ SCH ×2 (12:30→17:30)
--- NOTE | 2024-10-22 14:33 | P.DS ---
Providers Date of admission: 10/16/24 17:20 Expected date of discharge: 10/22/24 Attending physician: Jae Morin Consults: 10/16/24 17:24 Consult Physician Routine Consulting Provider: Brielle De Los Santos Consult Reason/Comments: empyema Do you want consulting provider notified?: Yes 10/16/24 17:26 Consult Physician Routine Consulting Provider: Lesli Arroyo Consult Reason/Comments: empyema Do you want consulting provider notified?: Yes 10/17/24 05:46 Consult Physician Routine Consulting Provider: Noam Sotelo Consult Reason/Comments: Neutropenia Do you want consulting provider notified?: Yes, Notify in am 10/17/24 10:16 Consult Physician Routine Consulting Provider: Kusum Espinal Consult Reason/Comments: Empyema Do you want consulting provider notified?: Yes 10/19/24 11:18 Consult Physician Routine Consulting Provider: Dino Parson Consult Reason/Comments: pt unhappy with psych meds- review Do you want consulting provider notified?: Yes Primary care physician: [facility] Course: Chief Complaint: Short of breath 59-year-old patient . Recently in the hospital from September 26 through October 14. Patient is a resident of [facility]. Patient was then admitted for worsening respiratory status. Patient was admitted present LV function. Left-sided chest tube was placed. Significant amount of fluid was obtained. Patient eventually pulled out the tube. Bloody fluid cultures came back negative. She did receive a prolonged course of IV Zosyn and was discharged on a short course of Augmentin. Patient now again presented to [facility] increasing shortness of breath. X-ray showed reaccumulation of pleural fluid. Cardiothoracic surgery was consulted. Chest tube was placed. Last time patient received 4 courses of alteplase/dornase. Also seen by psychiatry Dr. Parson last time would make medication changes. Patient does have a legal guardian. October 18: Resting in bed. Left-sided pigtail catheter. About 40 cc output overnight shift. Oral intake about 50%. Fluid cultures pending. On IV ceftriaxone and Flagyl. October 19: Minimal output overnight through the pigtail catheter. Will order CT scan to see how much fluid is present. Patient did refuse to take couple of his medications. Most discussed with psychiatry. Psychiatry consulted. Eating fair. CT scan is showing improvement of the pleural effusion. Small pocket of fluid. Cardiothoracic team following. October 20: Pigtail catheter was removed. Patient eating well.Psychiatry was consulted yesterday to review medications as patient had been refusing medications. 94% room air. Appears rather comfortable. Consult PT OT. Accu- Cheks remain uncontrolled. Will switch to NovoLog 70/30. 18 units with breakfast and supper. 6 units with lunch October 21: Patient Accu-Cheks running high into the 400. Patient be snacking in between his meals. Spoke to the nurse to regulate his diet. May have fluids in between his meals. Adjust patient's Humalog 70/30. Hold discharge for today. Patient has been feeding himself. PT OT of the case. October 22: Patient's insulin was further adjusted. Discussed with catalytic case operator. Patient returned to his [place] [facility]. Otherwise patient is comfortable. Tolerating diet. Questions answered Patient to follow-up with Dr. Friedman. Does not follow any further with visiting physicians. Also follow-up with Dr. Campos from pulmonary. Discussion and discharge planning more than 35 minutes Social history: Resident of [facility] On examination: VITAL SIGNS: 98.9, 59, 14, 110 x 73, 95% room air GENERAL APPEARANCE: Resting in bed, comfortable HEENT: Normal external appearance of nose and ear. Oral cavity normal EYES: Pupils equal. Conjunctiva normal. NECK: JVD not raised. Mass not palpable. RESPIRATORY: Respiratory effort normal, decreased breath sounds. Left-sided chest drain CARDIOVASCULAR: First and second sounds normal. No edema. ABDOMEN: Soft. Liver and spleen not palpable. No tenderness. No mass palpable. PSYCHIATRY: Answering simple questions INVESTIGATIONS, reviewed in the clinical context: October 21: White count [address] scan chest [October 19] much smaller pocket of pleural fluid October 18: White count 5.6 hemoglobin 12.4 platelets 239 October 17, 2024: White count 4.2 hemoglobin 12.1 platelets 219 sodium 132 potassium 4.8 creatinine 0.59 EKG tracing personally reviewed by me-normal sinus rhythm. Rate 67 Chest x-ray film personally reviewed by [id number] pleural effusion Recent admission Pleural fluid culture: Negative Assessment and plan: -Recurrent left pleural effusion in a patient who recently had complicated pneumonia with pleural effusion. He had a chest tube on the recent admission. Initially it was placed on September 30. And pulled out on October 09. That he had pulled out. Patient was discharged on 3 L of oxygen. Left-sided chest tube to drain.: Normal output. Pigtail catheter pulled out October 20. Cardiothoracic and pulmonary following. Repeat CT scan chest showing a very small pocket of fluid now. -Acute hypoxemic respiratory failure, secondary to pleural effusion/pneumonia: Improved Now on room air -Paroxysmal atrial fibrillation currently in sinus rhythm Cardizem CD 360 mg a day. Lopressor 25 mg twice daily Leukocytosis secondary to above Schizoaffective disorder -Bipolar disorder with anxiety/depression Desyrel. Depakote Seroquel 25 mg twice daily Patient is taking his medications -Diabetes mellitus, type II, chronically insulin, uncontrolled with hyperglycemia, from a bit erratic food intake Increase NovoLog 70/30. 26 units with breakfast and supper. 14 units with lunch. -Essential hypertension Cardizem CD 360 mg. Lopressor -Gastroesophageal reflux disease Pepcid as needed -Public guardian -Full code Disposition: senior living Past Medical History Past Medical History: Asthma, COPD, CVA/TIA, Diabetes Mellitus, Hypertension, Pneumonia, Thyroid Disorder Additional Past Medical History / Comment(s): Tremors History of Any Multi-Drug Resistant Organisms: None Reported Past Surgical History: Cholecystectomy Additional Past Surgical History / Comment(s): LEFT EYE Past Anesthesia/Blood Transfusion Reactions: No Reported Reaction Past Psychological History: Anxiety, Bipolar, Depression, Schizoaffective Disorder Smoking Status: Current every day smoker Past Alcohol Use History: None Reported Past Drug Use History: None Reported Additional Drug Use History / Comment(s): pt is a very poor historian Plan - Discharge Summary New Discharge Prescriptions: New Insuln Asp Prt/Insulin Aspart [NovoLOG MIX 70-30 VIAL] 14 unit SQ AC-LUNCH #1 each Insuln Asp Prt/Insulin Aspart [NovoLOG MIX 70-30 VIAL] 26 unit SQ AC-BID #1 each Continue Metoprolol Tartrate [Lopressor] 50 mg PO BID Aspirin EC [Ecotrin Low Dose] 81 mg PO DAILY [employer]-3 Acid Ethyl Esters [Lovaza] 1 gm PO BID amantadine HCL [Symmetrel] 100 mg PO DAILY traZODone HCL [Desyrel] 50 mg PO HS PRN PRN Reason: SLEEP Fluticasone Nasal [place] [Flonase Nasal [place]] 2 spray EA NOSTRIL DAILY #1 ml Naproxen [Naprosyn] 250 mg PO Q8HR PRN #30 tab PRN Reason: Pain Tiotropium 2.5 Mcg/Puff [Spiriva Respimat 2.5 Mcg] 2 puff INHALATION RT-DAILY #1 each OLANZapine [ZyPREXA] 5 mg PO TID PRN #30 tab PRN Reason: Severe Agitation guaiFENesin-DM 600/30MG [Mucinex Dm] 2 tab PO Q12HR PRN PRN Reason: congestion/cough hydrOXYzine HCL [Atarax] 25 mg PO DAILY PRN PRN Reason: Anxiety QUEtiapine FUMARATE [SEROquel] 600 mg PO HS Folic Acid 1 mg PO DAILY #30 tab Divalproex ER [Depakote ER] 500 mg PO TID Albuterol Inhaler [Ventolin Hfa Inhaler] 2 puff INHALATION RT-Q2H PRN #1 each PRN Reason: Shortness Of Breath Or Wheezing fluPHENAZine HCl 10 mg PO DAILY Loratadine [Claritin] 10 mg PO DAILY dilTIAZem HCL [Cardizem CD] 240 mg PO DAILY dilTIAZem HCL [Cardizem CD] 120 mg PO DAILY Discontinued Fluconazole [Diflucan] 100 mg PO DAILY #7 tab Insulin Regular, Human [NovoLIN R Flexpen] 15 units SQ AC-BID #0 Amoxic-Pot Clav 875-125Mg [Augmentin 875-125] 1 tab PO BID #6 tab Discharge Medication List Aspirin EC [Ecotrin Low Dose] 81 mg PO DAILY 11/06/23 [History] Metoprolol Tartrate [Lopressor] 50 mg PO BID 11/06/23 [History] Folic Acid 1 mg PO DAILY #30 tab 11/08/23 [Rx] [employer]-3 Acid Ethyl Esters [Lovaza] 1 gm PO BID 06/19/24 [History] Divalproex ER [Depakote ER] 500 mg PO TID 09/26/24 [History] amantadine HCL [Symmetrel] 100 mg PO DAILY 09/26/24 [History] traZODone HCL [Desyrel] 50 mg PO HS PRN 09/26/24 [History] Albuterol Inhaler [Ventolin Hfa Inhaler] 2 puff INHALATION RT-Q2H PRN #1 each 01/13/25 [Rx] Fluticasone Nasal [place] [Flonase Nasal [place]] 2 spray EA NOSTRIL DAILY #1 ml 10/14/24 [Rx] Naproxen [Naprosyn] 250 mg PO Q8HR PRN #30 tab 10/14/24 [Rx] OLANZapine [ZyPREXA] 5 mg PO TID PRN #30 tab 10/14/24 [Rx] Tiotropium 2.5 Mcg/Puff [Spiriva Respimat 2.5 Mcg] 2 puff INHALATION RT-DAILY #1 each 10/14/24 [Rx] Loratadine [Claritin] 10 mg PO DAILY 10/16/24 [History] QUEtiapine FUMARATE [SEROquel] 600 mg PO HS 10/16/24 [History] dilTIAZem HCL [Cardizem CD] 120 mg PO DAILY 10/16/24 [History] dilTIAZem HCL [Cardizem CD] 240 mg PO DAILY 10/16/24 [History] fluPHENAZine HCl 10 mg PO DAILY 10/16/24 [History] guaiFENesin-DM 600/30MG [Mucinex Dm] 2 tab PO Q12HR PRN 10/16/24 [History] hydrOXYzine HCL [Atarax] 25 mg PO DAILY PRN 10/16/24 [History] Insuln Asp Prt/Insulin Aspart [NovoLOG MIX 70-30 VIAL] 14 unit SQ AC-LUNCH #1 each 10/22/24 [Rx] Insuln Asp Prt/Insulin Aspart [NovoLOG MIX 70-30 VIAL] 26 unit SQ AC-BID #1 each 10/22/24 [Rx] Follow up Appointment(s)/Referral(s): [facility], [NON-STAFF] - As Needed Celio Friedman MD [STAFF PHYSICIAN] - 10/28/24 2:00 pm (if you see another provider please call office to cancel this appointment ) Mark Vazquez MD [Primary Care Provider] - 1-2 days (patient doesnt not want to see ) Gamal Campos MD [STAFF PHYSICIAN] - 12/04/24 10:00 am Discharge Disposition: HOME WITH HOME HEALTH SERVICES
--- NOTE | 2024-10-22 15:02 | P.PN ---
Subjective Progress Note Date: 10/22/24 Patient is a 59-year-old male with past medical history significant for pneumonia, diabetes mellitus, atrial fibrillation, CVA/TIA, hypertension, schizoaffective disorder, and resides at an [facility] home.. He had a recent hospitalization September 26 through October 14 for a loculated possibly parapneumonic left-sided pleural effusion, patient did have a pigtail catheter for placed thrombolytics September 30 which was inadvertently removed on October 09. This was an exudative effusion based on lights criteria. Microbiology was negative. Cytology also unremarkable. Patient did receive IV antibiotics while inpatient, and was discharged on p.o. Augmentin to be completed on outpatient basis. Previous follow-up chest x-ray showing only trace left-sided pleural effusion with atelectasis versus consolidative changes in the left lung base. Patient was eventually discharged back to [facility]. Patient transferred from [facility] yesterday evening. Apparently, has had progressively worsening shortness of breath over the last week. Chest CT at outside facility did not show any pulmonary embolism. There was posterior basilar left chest loculated fluid collection, with air-fluid level, measuring 6.1 x 9.5 x 11.3 cm. Suspicious for empyema. There is a moderate adjacent consolidation or atelectasis. Patchy groundglass opacities throughout much of the bilateral lower and posterior dependent upper lobes. Patchy consolidation involving the anterior lateral peripheral lingula as well as left base. Workup so far upon transfer includes a chest x-ray showing above-mentioned fluid c ollection with air-fluid level over the posterior spine on lateral view. Awaiting follow-up labs. Patient is currently being evaluated emergency department. He is on room air. Not in any respiratory distress. He is alert and has a flat affect. Responses to interview are short and does not volunteer information. He denies any shortness of breath, cough, chest pain, back pain, fever/chills. Patient was started on antibiotics in the ED. Current most recent vital signs: Temperature 98.3 F, heart rate 67 bpm, blood pressure 144/68 mmHg, nontachypneic, SpO2 is 99% on room air. The patient is seen today October 18, 2024 in follow-up on the regular medical floor. He is currently resting comfortably or back. Awake and alert in no acute distress. Maintaining O2 saturations up to 100% on 2 L/min per nasal cannula. Afebrile. Hemodynamically stable. Left-sided pigtail catheter was pl aced by interventional radiology yesterday. X-ray reveals residual left-sided atelectatic changes. No evidence of pneumothorax. Pigtail catheter placed to Pleur-evac and wall suction. Minimal output currently. Cultures pending. White count 5.6. Hemoglobin 12.4. Platelets 239. Glucose 162. He remains on bronchodilators, Rocephin, Flagyl. The patient is seen today October 19, 2024 in follow-up on the regular medical floor. He is awake and alert in no acute distress. Resting comfortably in bed. Denies any worsening shortness of breath, cough or congestion. He is maintaining good O2 saturations in the 90s on room air. He is continued on DuoNeb and elations, Mucinex. Antibiotics in the form of ceftriaxone and Flagyl. Left-sided pigtail catheter remains in place Lorvacs and wall suction. Approximately 140 mL of serosanguineous drainage out. Today's chest x-ray shows trace left pleural effusion. No evidence of pneumothorax. Pigtail catheter in good position. Pleural fluid reveals no malignancy cells identified. Cultures pending. Glucose 278. The patient is seen today October 20, 2024 in follow-up on the regular medical floor. He is awake and alert in no acute distress. Resting fairly comfortably in bed. Denies any worsening shortness of breath, cough or congestion. Left- sided pigtail catheter remains in place. No significant output in the past [address] scan of the chest yesterday revealed left lower lung pigtail catheter terminating in the lung parenchyma, removal and replacement recommended. Fluid cultures revealed no growth thus far. Glucose 223. Remains on DuoNeb inhalations. Continued on ceftriaxone and Flagyl. The patient is seen today October 21, 2024 in follow-up on the regular medical floor. He is currently resting comfortably in bed. Awake and alert in no acute distress. Maintaining O2 saturations in the 90s on room air. His pigtail catheter was removed yesterday. Today's chest x-ray shows able left lower lobe infiltrate. Tiny left pleural effusion. Pleural fluid cultures pending. White count 7.0. Hemoglobin 11.8. Platelets 225. He remains on DuoNeb inhalations. Continued on ceftriaxone and Flagyl. The patient is seen today October 22, 2024 in follow-up on the regular medical floor. He is awake and alert in no acute distress. Maintaining good O2 saturations in the 90s on room air. He denies any shortness of breath, cough or congestion. No chest pain. Pleural fluid cultures revealed no growth. Glucose 337. He remains on bronchodilators. Antibiotics in the form of ceftriaxone and Flagyl. Objective - Vital Signs Vital signs: Vital Signs Temp 98.9 F 10/22/24 07:33 Pulse 76 10/22/24 11:43 Resp 14 10/22/24 07:33 BP 110/73 10/22/24 07:33 Pulse Ox 95 10/22/24 07:33 FiO2 Intake & Output 10/21/24 10/22/24 10/22/24 18:59 06:59 18:59 Intake Total 1650 Output Total 950 2100 Balance -950 -450 Intake: Oral 1650 Output: Urine 950 2100 Other: Voiding Method Incontinent Incontinent - Exam GENERAL EXAM: Alert, 59-year-old male, on room air, not in any distress. HEAD: Normocephalic and atraumatic EYES: Normal reaction of pupils, equal size. NOSE: Clear with pink turbinates. THROAT: No erythema or exudates. NECK: No masses, no JVD. CHEST: No chest wall deformity. Pigtail catheter removed. LUNGS: Equal air entry with posterior left chest inspiratory crackles. CVS: S1 and S2 normal with no audible murmur, regular rhythm. No extra heart sounds ABDOMEN: No hepatosplenomegaly, active bowel sounds, no guarding or rigidity. SPINE: No scoliosis or deformity SKIN: No rashes CENTRAL NERVOUS SYSTEM: No focal deficits, tone is normal in all 4 extremities. EXTREMITIES: There is no peripheral edema, clubbing, or cyanosis. Peripheral pulses are intact. - Labs CBC & Chem 7: 10/21/24 08:59 10/17/24 02:38 Labs: Abnormal Lab Results - Last 24 Hours (Table) 10/21/24 10/21/24 10/22/24 Range/Units 16:37 20:42 06:27 POC Glucose (mg/dL) 285 H 255 H 337 H (70-110) mg/dL Microbiology - Last 24 Hours (Table) 10/17/24 11:30 Anaerobic Culture - Final Pleural Fluid 10/17/24 11:30 Gram Stain - Final Pleural Fluid Body Fluid Culture - Final Assessment and Plan Assessment: Acute dyspnea, CT chest done at outside facility showing posterior basilar left chest fluid collection, loculated, with air-fluid level, measuring 6.1 x 9.5 x 11.3 cm. Suspicious for empyema. There is a adjacent consolidation or atelectasis. Patchy groundglass opacities throughout much of the bilateral lower and posterior dependent upper lobes. Patchy consolidation involving the anterior lateral peripheral lingula, as well as, left base. On his previous admission he did have a left-sided pigtail catheter in place that was inadvertently removed. This admission he had another pigtail catheter placed October 17, 2024 and discontinued October 20, 2024. Pleural fluid cultures pending. Remains on ceftriaxone and Flagyl Complicated, loculated parapneumonic left-sided effusion, status post pigtail catheter placement on 09/30/2024, inadvertently removed on 10/09/2023. Exudative effusion based on Lights criteria and fluid analysis. Microbiology was negative. Cytology also unremarkable. Patient did receive IV antibiotics while inpatient, and was discharged with PO antibiotics to be completed outpatient. Ultimately, discharged back to [facility] home on October 14 History of COVID-19 infection History of atrial fibrillation, currently in normal sinus mechanism Diabetes mellitus, type II, with hyperglycemia History of mild intermittent chronic bronchial asthma. History of CVA. Hypertension. Gastroesophageal reflux disease. History of schizoaffective disorder/bipolar disorder/anxiety/depression [facility] resident. Plan: The patient was seen and evaluated Labs and medications reviewed Currently stable and on room air Stable for discharge Continued on bronchodilators Follow-up in our office in 1 week I have personally seen and examined the patient, performed the documentation and the assessment and plan as written. Number of minutes spent on the visit: 10 Dictation was produced using [employer] dictation software. Please excuse any grammatical, word or spelling errors.
--- NOTE | 2024-10-22 15:46 | P.PN ---
Subjective Progress Note Date: 10/22/24 Principal diagnosis: Reason for follow-up is left-sided empyema Patient is a 59-year-old male with a past medical history significant for diabetes mellitus hypertension CVA TIA COPD bipolar depression and Schizoaffective Disorder with recent admission to hospital with a left-sided empyema status post chest tube placement cultures were negative now presented back to the hospital worsening shortness of breath CT with evidence of left- sided loculated fluid requiring another chest tube placement. On today's evaluation that is 10/22/2024, Patient is afebrile this morning patient denies having any chest pain shortness of breath or any worsening cough, the patient is currently on room air, patient denies any abdominal pain no diarrhea no nausea no vomiting. No new lab has been obtained today culture have been negative Objective - Vital Signs Vital signs: Vital Signs Temp 98.9 F 10/22/24 07:33 Pulse 76 10/22/24 11:43 Resp 14 10/22/24 07:33 BP 110/73 10/22/24 07:33 Pulse Ox 95 10/22/24 07:33 FiO2 Intake & Output 10/21/24 10/22/24 10/22/24 18:59 06:59 18:59 Intake Total 1650 Output Total 950 2100 Balance -950 -450 Intake: Oral 1650 Output: Urine 950 2100 Other: Voiding Method Incontinent Incontinent - Exam GENERAL DESCRIPTION: Middle-age male lying in bed in no distress RESPIRATORY SYSTEM: Unlabored breathing , decreased breath sounds at bases HEART: S1 S2 regular rate and rhythm , ABDOMEN: Soft , no tenderness EXTREMITIES: No edema feet - Labs CBC & Chem 7: 10/21/24 08:59 10/17/24 02:38 Labs: Abnormal Lab Results - Last 24 Hours (Table) 10/21/24 10/21/24 10/22/24 Range/Units 16:37 20:42 06:27 POC Glucose (mg/dL) 285 H 255 H 337 H (70-110) mg/dL Microbiology - Last 24 Hours (Table) 10/17/24 11:30 Anaerobic Culture - Final Pleural Fluid 10/17/24 11:30 Gram Stain - Final Pleural Fluid Body Fluid Culture - Final Assessment and Plan (1) Empyema of lung Status: Acute Code(s): J86.9 - PYOTHORAX WITHOUT FISTULA SNOMED Code(s): 585 35461 Plan: 1patient is in the hospital with increasing shortness of breath in this patient with outpatient CT concerning for a left-sided fluid collection with gas con cerning for empyema and this patient did have a similar presentation for the brain did have a chest tube placement culture were negative and the patient did received extensive IV antibiotic therapy and was advised oral antibiotics on DC, patient has been evaluated by CT surgery consulted IR for chest tube placement which has been completed fluid has been sent for the culture which are currently pending 2-patient is afebrile and cultures are so far negative currently being treated with Rocephin and Flagyl for short course of oral Ceftin and Flagyl on discharge Dictation was produced using [employer] dictation software. please excuse any grammatical, word or spelling errors. Time with Patient: Less than 30
--- NOTE | 2024-10-25 08:21 | CDI ---
Documentation Clarification Form Date: 10/25/2024 From: Mercy Mcelroy Admit Date: 10/16/2024 05:20:00 PM Patient Name: Lucas Dumont Visit Number: [id number] Discharge Date: 10/22/2024 12:13:00 PM ATTENTION: The Clinical Documentation Specialists (CDI) and [facility] Coding Staff appreciate your assistance in clarifying documentation. Please respond to the clarification below the line at the bottom and electronically sign. The CDI & [facility] Coding staff will review the response and follow-up if needed. Please note: Queries are made part of the Legal Health Record. If you have any questions, please contact the author of this message via ITS. Doctor/Provider: Jae Morin The patients principal diagnosis the diagnosis that was chiefly responsible for the admission - has not been clearly identified and clarification is requested. Pleural effusion is often considered a manifestation of another underlying condition. Please clarify the underlying condition of the pleural effusion. The patient presented with the following: SOB worsening since discharge from previous admission. Posterior basilar left chest fluid greater than gaseous filled collection measuring 6.1 x 9.5 x 11.3 cm highly suspicious for infectious over sterile collection such as empyema. History/Risk factors: Prior hospitalization for COVID pneumonia Clinical Indicators: Lab findings: Cytology Left pleural fluid mixed inflammatory cells Radiology findings: Left pleural effusion. Scattered ground glass opacities throughout the lungs Vital Signs: 98.9 F, 63 bpm, 20, 134/99 96% NC Treatment: Left chest tube insertion. Rocephin and Augmentin Consults: ID consult Empyema of lung Thoracic surgery "Loculated left effusion" In your professional opinion, can you please clarify which diagnosis, after study, was the reason chiefly responsible for the admission? [ + ] Pleural effusion due to empyema [ ] Pleural effusion due to pneumonia [ ] Other, please specify [ ] Unable to determine MTDD
== END 2024-10-22 12:13 | disposition home health service (06) | DRG 177 ==
LOC: EC 15:36 → 4SSUR 17:19 → OBSVTOIN 17:20 → 4SSUR 18:06
PROVIDERS: ADMIT Hospitalist; ATTEND Hospitalist
PROC: 0W9B30Z Drainage of Left Pleural Cavity with Drainage Device, Percutaneous Approach (ICD-10-PCS; principal; 2024-10-17)
DX: J86.9 Pyothorax without fistula (principal); J18.9 Pneumonia, unspecified organism; J96.01 Acute respiratory failure with hypoxia; D70.9 Neutropenia, unspecified; J90 Pleural effusion, not elsewhere classified; F25.9 Schizoaffective disorder, unspecified; I48.0 Paroxysmal atrial fibrillation; J94.8 Other specified pleural conditions; J44.0 Chronic obstructive pulmonary disease with (acute) lower respiratory infection; E11.65 Type 2 diabetes mellitus with hyperglycemia; I10 Essential (primary) hypertension; D64.9 Anemia, unspecified; J98.11 Atelectasis; R53.81 Other malaise; F31.9 Bipolar disorder, unspecified; F41.9 Anxiety disorder, unspecified; F17.200 Nicotine dependence, unspecified, uncomplicated; K21.9 Gastro-esophageal reflux disease without esophagitis; E07.9 Disorder of thyroid, unspecified; Z79.4 Long term (current) use of insulin; Z79.82 Long term (current) use of aspirin; Z79.899 Other long term (current) drug therapy; Z86.16 Personal history of COVID-19; Z86.73 Personal history of transient ischemic attack (TIA), and cerebral infarction without residual deficits; Z87.01 Personal history of pneumonia (recurrent)
CPT/HCPCS: 32551; 71045; 71046; 71250; 76942; 80053; 80164; 82150; 82945; 83615; 84157; 85025; 85610; 87070; 87075; 87102; 87116; 87205; 87206; 88108; 88305; 89050; 93005; 93306; 94640; 96365; 99285